=== PATIENT | male | born 1935 | race Caucasian/White ===

== ENCOUNTER → 2016-07-21 | Outpatient (CLI) | payer MEDICARE, OTHER ==
--- NOTE | 2016-07-21 11:56 | XR ---
EXAM TYPE: LUMBAR SPINE X RAY SERIES COMPARISON: 04/16/2016 HISTORY: Follow-up surgery FINDINGS: The patient is status post posterior spinal fusion and L3-S1, paraspinal bone has fused. Posterior sp inal fusion change also present at the thoracic lumbar levels, laminectomy change present at L2. Bone mineralization is reduced. Lumbar vertebral bodies show stable height and alignment. There is multil evel spondylosis, loss of disc height at the intervertebral levels. Dense atherosclerotic vascular ca lcifications are present IMPRESSION: 1. Stable postoperative alignment..
--- NOTE | 2016-07-21 12:01 | XR ---
EXAMINATION TYPE: XR thoracic spine 2V DATE OF EXAM: 07/21/2016 11:47 AM COMPARISON: 04/16/2016 HISTORY: Follow-up postop FINDINGS: Fusion changes are noted at the cervical thoracic junction. Posterior fusion changes also are stable at the posterior thoracic lumbar spine. Bone mineralization is reduced. Thoracic vertebral bodies cindy w a stable alignment, vertebral body height, appearance. Multilevel spondylosis is present. Surgical change overlying the cervical spine. IMPRESSION: 1. Stable postoperative change
== END | disposition home or self-care (01) ==
LOC: RADXRMAIN 11:15
PROVIDERS: ATTEND Neurological Surgery
DX: M51.04 Intervertebral disc disorders with myelopathy, thoracic region (principal); Z98.890 Other specified postprocedural states
CPT/HCPCS: 72070; 72100

== ENCOUNTER → 2017-01-10 | Outpatient (CLI) | payer MEDICARE, OTHER ==
--- NOTE | 2017-01-10 11:04 | XR ---
EXAMINATION TYPE: XR thoracic spine 2V DATE OF EXAM: 01/10/2017 COMPARISON: 07/21/2016 HISTORY: Chronic back Postsurgical changes are noted at the cervical thoracic junction. Postsurgical changes also are stabl e at the thoracolumbar junction. Bone mineralization is reduced. Thoracic vertebral bodies show a stable . Multilevel spondylosis is p resent. Hypertrophic change and multilevel degenerative disc disease noted. Vascular calcifications n oted. IMPRESSION: 1. Stable postoperative change
== END | disposition home or self-care (01) ==
LOC: RADXRMAIN 10:37
PROVIDERS: ATTEND Neurological Surgery
DX: M51.34 Other intervertebral disc degeneration, thoracic region (principal); Z98.890 Other specified postprocedural states
CPT/HCPCS: 72070

== ENCOUNTER → 2017-01-27 | Outpatient (CLI) | payer MEDICARE, OTHER ==
--- NOTE | 2017-01-27 16:32 | CT ---
EXAMINATION TYPE: CT thor lumbar spine wo con DATE OF EXAM: 01/27/2017 COMPARISON: NONE HISTORY: Lower back pain. Hx of back sx. CT DLP: 1151.0 mGycm Automated exposure control for dose reduction was used. Axial images were obtained at 3 mm thick sections through the thoracic and lumbar spine. Reconstructe d images in the coronal and sagittal plane are reviewed on the computer. FINDINGS: Vascular calcification is within the aorta. Multiple fixation pedicle screws and rods are present thr oughout the spine. Laminectomies performed. Note is made of anterior cervical fusion. CT thoracic spine: T11 laminectomy is present. T12 laminectomy is present. No spinal canal stenosis is evident. Mild deg enerative disc changes present diffusely. CT lumbar spine: Degenerative disc changes with vacuum phenomenon are present L1-L2 Laminectomies at L2, L3, L4, and L 5 are present. Beam hardening artifact causes some limitation on the evaluation of the lumbar spine. No spinal canal stenosis is present. Facet hypertrophy is contributing to foraminal narrowing at L5-S 1. Lateral recesses L5-S1 are narrowed. L5-S1 endplate changes in disc bulge may be present. Correlat e with the level of the patient's symptoms. IMPRESSION: 1. POSTSURGICAL CHANGES INCLUDING EXTENSIVE PEDICLE SCREWS AND FIXATION RODS THROUGH THE THORACIC AND LUMBAR SPINE. LAMINECTOMIES HAVE BEEN PERFORMED. 2. NO SPINAL CANAL STENOSIS IS EVIDENT. SOME LATERAL RECESS NARROWING IS PRESENT L5-S1. 3. ENDPLATE SPURRING AND DISC BULGE AT L5-S1 MAY BE PRESENT WITHOUT STENOSIS. CORRELATE WITH THE RADHA ENT'S SYMPTOMS.
== END | disposition home or self-care (01) ==
LOC: RADCTMAIN 15:38
PROVIDERS: ATTEND Neurological Surgery
DX: M51.27 Other intervertebral disc displacement, lumbosacral region (principal); M43.25 Fusion of spine, thoracolumbar region
CPT/HCPCS: 72128; 72131

== ENCOUNTER 2017-08-01 13:28 | Observation (INO) | payer MEDICARE, OTHER ==
[2017-08-01 14:06] VITALS: RESP 18
[2017-08-01] MEDS ORDERED: ASPIRIN 81 MG PO STA (14:14)
--- NOTE | 2017-08-01 14:17 | ED ---
General Adult HPI - General Chief complaint: Chest Pain Stated complaint: Chest Pain Time Seen by Provider: 08/01/17 14:06 Source: patient, family, RN notes reviewed Mode of arrival: wheelchair Limitations: no limitations - History of Present Illness Initial comments: Patient is a pleasant 82-year-old male presenting to the emergency department with chest discomfort. Symptoms have been occurring for the past week. Symptoms are intermittent. Patient has an ache in his chest that radiates towards the right and sometimes the back. Patient does have exertional dyspnea. Patient has been somewhat fatigued. No nausea or vomiting or diaphoresis. did see his primary care physician prior to arrival and was advised come to the hospital. Patient was told he had a low heart rate. Patient has no discomfort at this time. - Related Data Home Medications Medication Instructions Recorded Confirmed Isosorbide Mononitrate [Ismo] 20 mg PO BID 03/25/14 08/01/17 Lisinopril [Prinivil] 5 mg PO DAILY 03/25/14 08/01/17 Propranolol [Inderal] 10 mg PO DAILY 03/25/14 08/01/17 Tamsulosin HCl [Flomax] 0.4 mg PO DAILY 03/25/14 08/01/17 Aspirin 81 mg PO DAILY 01/07/15 08/01/17 Allergies Allergy/AdvReac Type Severity Reaction Status Date / Time No Known Allergies Allergy Verified 08/01/17 13:58 Review of Systems ROS Statement: Those systems with pertinent positive or pertinent negative responses have been documented in the HPI. ROS Other: All systems not noted in ROS Statement are negative. Constitutional: Denies: fever Eyes: Denies: eye pain ENT: Denies: ear pain Respiratory: Reports: dyspnea (With exertion). Denies: cough Cardiovascular: Reports: chest pain. Denies: palpitations Endocrine: Reports: fatigue Gastrointestinal: Denies: abdominal pain Genitourinary: Denies: dysuria Musculoskeletal: Denies: back pain Skin: Denies: rash Neurological: Denies: weakness Past Medical History Past Medical History: Coronary Artery Disease (CAD), Hyperlipidemia, Hypertension, Myocardial Infarction (HI), Prostate Disorder Additional Past Medical History / Comment(s): walking is more difficult now- has rt side back pain Last Myocardial Infarction Date:: 1991 History of Any Multi-Drug Resistant Organisms: None Reported Past Surgical History: Back Surgery, Heart Catheterization With Stent Additional Past Surgical History / Comment(s): Neck surgery, 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 States he went home and slept for about 4 hrs. that day. Date of Last Stent Placement:: 2012 Past Psychological History: No Psychological Hx Reported Smoking Status: Former smoker Past Alcohol Use History: None Reported Past Drug Use History: None Reported - Past Family History Mother Family Medical History: No Reported History General Exam Limitations: no limitations General appearance: alert, in no apparent distress Head exam: Present: atraumatic Eye exam: Present: normal appearance, PERRL ENT exam: Present: normal oropharynx Neck exam: Present: normal inspection Respiratory exam: Present: normal lung sounds bilaterally Cardiovascular Exam: Present: bradycardia Expanded Peripheral pulses: 2+: Radial (R), Radial (L), Posterior Tibialis (R), Posterior Tibialis (L) GI/Abdominal exam: Present: soft. Absent: tenderness Extremities exam: Present: normal inspection Neurological exam: Present: alert Psychiatric exam: Present: normal affect, normal mood Skin exam: Present: normal color Course Vital Signs 08/01/17 08/01/17 13:34 14:02 Temperature 98.5 F Pulse Rate 49 L 44 L Respiratory 16 18 Rate Blood Pressure 178/80 O2 Sat by Pulse 98 100 Oximetry EKG Findings - EKG Comments: EKG Findings:: Sinus bradycardia 44. For screening AV block with OR of 210. QRS 96. QT 470. QTc 41. Normal axis. Inferior Q waves. Anterior Q waves. No acute ST change. Medical Decision Making - Medical Decision Making Patient reexamined and resting comfortably in bed. Heart rate 42. Blood pressure stable. Case discussed in detail with Dr. Gil, who will admit for Dr. Michel. Beta shayy will be held. Cardiology placed on consult. Patient updated. - Lab Data Result diagrams: 08/01/17 14:00 08/01/17 14:00 Lab Results 08/01/17 08/01/17 08/01/17 Range/Units 14:00 14:00 14:00 WBC 7.8 (3.8-10.6) k/uL RBC 4.66 (4.30-5.90) m/uL Hgb 14.5 (13.0-17.5) gm/dL Hct 44.0 (39.0-53.0) % MCV 94.4 (80.0-100.0) fL MCH 31.0 (25.0-35.0) pg MCHC 32.8 (31.0-37.0) g/dL RDW 14.1 (11.5-15.5) % Plt Count 211 (150-450) k/uL Neutrophils % 59 % Lymphocytes % 30 % Monocytes % 5 % Eosinophils % 3 % Basophils % 1 % Neutrophils # 4.6 (1.3-7.7) k/uL Lymphocytes # 2.3 (1.0-4.8) k/uL Monocytes # 0.4 (0-1.0) k/uL Eosinophils # 0.3 (0-0.7) k/uL Basophils # 0.1 (0-0.2) k/uL PT (9.0-12.0) sec INR (<1.2) APTT (22.0-30.0) sec Sodium 140 (137-145) mmol/L Potassium 4.4 (3.5-5.1) mmol/L Chloride 108 H (98-107) mmol/L Carbon Dioxide 25 (22-30) mmol/L Anion Gap 7 mmol/L BUN 19 (9-20) mg/dL Creatinine 0.80 (0.66-1.25) mg/dL Est GFR (MDRD) Af Amer >60 (>60 ml/min/1.73 sqM) Est GFR (MDRD) Non-Af >60 (>60 ml/min/1.73 sqM) Glucose 105 H (74-99) mg/dL Calcium 9.5 (8.4-10.2) mg/dL Magnesium 1.9 (1.6-2.3) mg/dL Total Bilirubin 1.2 (0.2-1.3) mg/dL AST 25 (17-59) U/L ALT 42 (21-72) U/L Alkaline Phosphatase 81 (38-126) U/L Total Creatine Kinase 102 (55-170) U/L CK-MB (CK-2) 2.7 H* (0.0-2.4) ng/mL CK-MB (CK-2) Rel Index 2.6 Troponin I 0.012 (0.000-0.034) ng/mL Total Protein 5.7 L (6.3-8.2) g/dL Albumin 3.6 (3.5-5.0) g/dL TSH 2.320 (0.465-4.680) mIU/L Free T4 1.69 (0.78-2.19) ng/dL Free T3 pg/mL 3.5 (2.8-5.3) pg/ml 08/01/17 Range/Units 14:00 WBC (3.8-10.6) k/uL RBC (4.30-5.90) m/uL Hgb (13.0-17.5) gm/dL Hct (39.0-53.0) % MCV (80.0-100.0) fL MCH (25.0-35.0) pg MCHC (31.0-37.0) g/dL RDW (11.5-15.5) % Plt Count (150-450) k/uL Neutrophils % % Lymphocytes % % Monocytes % % Eosinophils % % Basophils % % Neutrophils # (1.3-7.7) k/uL Lymphocytes # (1.0-4.8) k/uL Monocytes # (0-1.0) k/uL Eosinophils # (0-0.7) k/uL Basophils # (0-0.2) k/uL PT 10.6 (9.0-12.0) sec INR 1.1 (<1.2) APTT 22.8 (22.0-30.0) sec Sodium (137-145) mmol/L Potassium (3.5-5.1) mmol/L Chloride (98-107) mmol/L Carbon Dioxide (22-30) mmol/L Anion Gap mmol/L BUN (9-20) mg/dL Creatinine (0.66-1.25) mg/dL Est GFR (MDRD) Af Amer (>60 ml/min/1.73 sqM) Est GFR (MDRD) Non-Af (>60 ml/min/1.73 sqM) Glucose (74-99) mg/dL Calcium (8.4-10.2) mg/dL Magnesium (1.6-2.3) mg/dL Total Bilirubin (0.2-1.3) mg/dL AST (17-59) U/L ALT (21-72) U/L Alkaline Phosphatase (38-126) U/L Total Creatine Kinase (55-170) U/L CK-MB (CK-2) (0.0-2.4) ng/mL CK-MB (CK-2) Rel Index Troponin I (0.000-0.034) ng/mL Total Protein (6.3-8.2) g/dL Albumin (3.5-5.0) g/dL TSH (0.465-4.680) mIU/L Free T4 (0.78-2.19) ng/dL Free T3 pg/mL (2.8-5.3) pg/ml - Radiology Data Radiology results: image reviewed (Chest x-ray shows no acute process.) Disposition Clinical Impression: Chest pain, Bradycardia, Exertional dyspnea Disposition: ADMITTED IP TO THIS [facility] Referrals: Nayeli Michel MD [Primary Care Provider] - 1-2 days Decision Time: 15:55
[2017-08-01 14:26] LABS: Basophils # (A) 0.1 k/uL (0-0.2); Basophils % (A) 1 %; Eosinophils # (A) 0.3 k/uL (0-0.7); Eosinophils % (A) 3 %; HGB 14.5 gm/dL (13.0-17.5); Lymphocytes # (A) 2.3 k/uL (1.0-4.8); Lymphocytes % (A) 30 %; MCHC 32.8 g/dL (31.0-37.0); MCV 94.4 fL (80.0-100.0); Mean Platelet Volume 7.2; Monocytes # (A) 0.4 k/uL (0-1.0); Monocytes % (A) 5 %; Neutrophils # (A) 4.6 k/uL (1.3-7.7); Neutrophils % (A) 59 %; Platelet Count 211 k/uL (150-450); RBC 4.66 m/uL (4.30-5.90); RDW 14.1 % (11.5-15.5); WBC 7.8 k/uL (3.8-10.6)
[2017-08-01 14:33] LABS: INR 1.1 (<1.2); Partial Thromboplastin Time 22.8 sec (22.0-30.0); Prothrombin Time 10.6 sec (9.0-12.0)
[2017-08-01 14:34] LABS: ALT 42 U/L (21-72); AST 25 U/L (17-59); Albumin 3.6 g/dL (3.5-5.0); Alkaline Phosphatase 81 U/L (38-126); Anion Gap 7 mmol/L; Blood Urea Nitrogen 19 mg/dL (9-20); Calcium 9.5 mg/dL (8.4-10.2); Carbon Dioxide 25 mmol/L (22-30); Chloride 108 mmol/L (98-107); Glucose 105 mg/dL (74-99); Magnesium 1.9 mg/dL (1.6-2.3); Potassium 4.4 mmol/L (3.5-5.1); Sodium 140 mmol/L (137-145); Total Bilirubin 1.2 mg/dL (0.2-1.3); Total Protein 5.7 g/dL (6.3-8.2)
--- NOTE | 2017-08-01 14:41 | XR ---
EXAMINATION TYPE: XR chest 2V DATE OF EXAM: 08/01/2017 COMPARISON: 03/25/2014 HISTORY: Shortness of breath TECHNIQUE: Frontal and lateral views of the chest are obtained. FINDINGS: Scattered senescent parenchymal changes noted. Hyperinflation compatible with COPD. No evidence for infiltrate. No evidence for atelectasis. Heart size is stable. Mediastinal structures are stable and grossly unremarkable. No evidence for hilar prominence. Degenerative changes dorsal spine. IMPRESSION: 1. No evidence for acute pulmonary disease.
[2017-08-01 14:51] LABS: T4, Free (Free Thyroxine) 1.69 ng/dL (0.78-2.19)
[2017-08-01 15:05] LABS: Troponin I 0.012 ng/mL (0.000-0.034)
[2017-08-01 15:06] LABS: Creatine Kinase MB 2.7 ng/mL (0.0-2.4)
[2017-08-01] MEDS ORDERED: NITROGLYCERIN SL TABS 0.4 MG TAB SUBLINGUAL PRN (15:58)
[2017-08-01] MEDS ORDERED: HEPARIN SODIUM,PORCINE 5,000 UNIT/ML 1 ML VIAL IV ONE (16:47)
[2017-08-01] MEDS ORDERED: HEPARIN SOD,PORK IN 0.45% NACL 25,000 UNIT in 0.45% NACL 1 500ML.BAG IV SCH (17:00)
--- NOTE | 2017-08-01 18:01 | P.HPIM ---
History of Present Illness H&P Date: 08/01/17 Chief Complaint: chestpain His is 82 years old male patient of Dr. Myers and Dr. Michel with past medical history of coronary artery disease status post stent in 1996, history of hypertension, BPH, multiple neck and back surgeries for degenerative arthritis who presented with substernal chest pain radiating to his back for the past 1 week. Patient was seen by the PCP today in the clinic for concern of chest pain. Vitals obtained suggested a heart rate of 40 in the clinic. Evaluation in the ED patient complains of intermittent substernal chest pain worsening on exertion, radiating to the back associated with shortness of breath postop patient denies any cough fever or chills. Labs evaluated in the ED were positive for increased CK with negative troponin. EKG done in the ER was positive for marked sinus bradycardia with first-degree AV block, Q waves were seen in leads 2-lead 3 and aVF anterior leads suggestive of Q waves myocardial infarction. Vitals was suggestive of bradycardia, blood pressure 178 /80 afebrile. Patient states there is no improvement in his chest pain with aspirin but it resolved by itself. He saw Dr. Myers 2 months ago for regular follow-up but denies any recent abnormality. He had a stress test multiple years ago and had a recent echocardiogram with no abnormality. Review of Systems Constitutional: Denies chills, Denies fever, Denies lethargy, Denies malaise, Denies poor appetite, Denies weakness, Denies weight loss Eyes: denies decreased vision, denies diplopia, denies discharge, denies pain Ears: deny: decreased hearing Ears, nose, mouth and throat: Denies dental pain, Denies headache, Denies nasal discharge, Denies nose pain Cardiovascular: chest pain, decreased exercise tolerance, Denies edema, Denies high blood pressure, Denies irregular heart beat, Denies palpitations, Denies paroxysmal nocturnal dyspnea, Denies rapid heart beat, shortness of breath Respiratory: Denies congestion, Denies cough, Denies cough with sputum, Denies home oxygen, Denies wheezing Gastrointestinal: Denies abdominal pain, Denies change in bowel habits, Denies coffee ground emesis, Denies early satiety, Denies excessive gas, Denies heartburn, Denies hematemesis, Denies hematochezia, Denies loss of appetite, Denies nausea, Denies vomiting Genitourinary: Denies dysuria, Denies flank pain, Denies kidney stones, Denies menorrhagia, Denies urgency, Denies urinary frequency Musculoskeletal: Denies gait dysfunction, Denies limitation of motion, Denies morning stiffness, Denies muscle cramps Integumentary: Denies rash, Denies wounds, Denies brittle nails, Denies change in hair/nails, Denies darkening of skin Neurological: Endorses balance difficulties uses cane, Denies change in speech, Denies double vision, Denies gait dysfunction, Denies loss of vision, Denies motor disturbance, Denies numbness, Denies paralysis, Denies paresthesias, Denies seizures Psychiatric: Denies anxiety, Denies depression Endocrine: Denies excessive sweating, Denies excessive thirst, Denies high blood sugars, Denies palpitations Hematologic/Lymphatic: Denies easy bruising, Denies lymphadenopathy Past Medical History Past Medical History: Coronary Artery Disease (CAD), Hypertension, Myocardial Infarction (ME), Prostate Disorder Additional Past Medical History / Comment(s): walking is more difficult now- has rt side back pain Last Myocardial Infarction Date:: 1991 History of Any Multi-Drug Resistant Organisms: None Reported Past Surgical History: Back Surgery, Heart Catheterization With Stent Additional Past Surgical History / Comment(s): Neck surgery, 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 States he went home and slept for about 4 hrs. that day. Date of Last Stent Placement:: 2012 Past Psychological History: No Psychological Hx Reported Smoking Status: Former smoker Past Alcohol Use History: None Reported Past Drug Use History: None Reported - Past Family History Mother Family Medical History: No Reported History Medications and Allergies Home Medications Medication Instructions Recorded Confirmed Type Isosorbide Mononitrate [Ismo] 20 mg PO BID 03/25/14 08/01/17 History Lisinopril [Prinivil] 5 mg PO DAILY 03/25/14 08/01/17 History Propranolol [Inderal] 10 mg PO DAILY 03/25/14 08/01/17 History Tamsulosin HCl [Flomax] 0.4 mg PO DAILY 03/25/14 08/01/17 History Aspirin 81 mg PO DAILY 01/07/15 08/01/17 History Allergies Allergy/AdvReac Type Severity Reaction Status Date / Time No Known Allergies Allergy Verified 08/01/17 13:58 Physical Exam Vitals: Vital Signs Temp Pulse Resp BP Pulse Ox 08/01/17 16:00 44 L 18 183/82 08/01/17 14:02 44 L 18 100 08/01/17 13:34 98.5 F 49 L 16 178/80 98 Intake and Output 08/01/17 08/01/17 08/01/17 06:59 14:59 22:59 Other: Weight 72.575 kg Patient Weight 08/02/17 06:59 Weight 72.575 kg - Constitutional General appearance: cooperative, no acute distress, thin-appearing - EENT Eyes: anicteric sclerae, PERRLA, normal appearance ENT: hearing grossly normal - Neck Neck: no lymphadenopathy, normal ROM, no other, no rigidity, no stridor, no thyromegaly, incision cortez of the back of the neck healed - Respiratory Respiratory: bilateral: CTA, negative: diminished, dullness, rales, rhonchi - Cardiovascular Rhythm: regular Heart sounds: normal: S1, S2 Abnormal Heart Sounds: no systolic murmur, no diastolic murmur, no rub, no S3 Gallop, no S4 Gallop, no click, no other - Gastrointestinal General gastrointestinal: normal bowel sounds, soft - Integumentary Integumentary: no rash - Neurologic Neurologic: CNII-XII intact - Musculoskeletal Musculoskeletal: gait normal, strength equal bilaterally - Psychiatric Psychiatric: A&O x's 3, appropriate affect Results CBC & Chem 7: 08/01/17 14:00 08/01/17 14:00 Labs: Abnormal Lab Results - Last 24 Hours (Table) 08/01/17 08/01/17 Range/Units 14:00 14:00 Chloride 108 H (98-107) mmol/L Glucose 105 H (74-99) mg/dL CK-MB (CK-2) 2.7 H* (0.0-2.4) ng/mL Total Protein 5.7 L (6.3-8.2) g/dL Thrombosis Risk Factor Assmnt - DVT/VTE Prophylaxis DVT/VTE Prophylaxis: Pharmacologic Prophylaxis ordered Assessment and Plan Plan: #1 substernal chest pain with shortness of breath likely associated with acute coronary syndrome was stopped EKG suggestive of Q waves in multiple leads concerning for ME concerning for inferior ME in the presence of bradycardia. Continue heparin drip, aspirin. Hold beta shayy for concern of bradycardia. Cardiology recommendation pending. Repeat EKG in the morning. Echo ordered. Lipid panel ordered #2 bradycardia likely secondary to inferior wall ME. There is a possibility patient may require temporary pacemaker if bradycardia does not improve. Atropine 0.5 mg can be given if patient is symptomatic #3 hypertension continue lisinopril, Imdur. Hold propranolol. Hydralazine can be given as a when necessary if blood pressure continues to stay more than 160 though if patient has persistent angina would avoid using hydralazine. I would rather avoid beta blockers, calcium channel blockers, clonidine for the concern of bradycardia. #4 BPH continue Flomax #5 DVT prophylaxis continue heparin drip #6 GI prophylaxis with Pepcid 20 mg once daily #7 CODE STATUS full code Disposition patient may need 1-2 inpatient nights for concern of bradycardia and need for pacemaker.
[2017-08-01] MEDS ORDERED: ACETAMINOPHEN TAB 325 MG TAB PO PRN (18:02)
[2017-08-01] MEDS ORDERED: hydrALAZINE HCL 20 MG/ML 1 ML VIAL IVP PRN (18:02)
[2017-08-01] MEDS: LISINOPRIL 5 MG TAB PO SCH (18:46)
[2017-08-01] MEDS: ISOSORBIDE MONONITRATE 20 MG TAB PO SCH (21:09)
[2017-08-01 21:17] LABS: Creatine Kinase MB 2.3 ng/mL (0.0-2.4); Troponin I 0.013 ng/mL (0.000-0.034)
[2017-08-02 01:21] LABS: Basophils # (A) 0.1 k/uL (0-0.2); Basophils % (A) 1 %; Eosinophils # (A) 0.2 k/uL (0-0.7); Eosinophils % (A) 3 %; HCT 41.3 % (39.0-53.0); HGB 13.8 gm/dL (13.0-17.5); Lymphocytes % (A) 38 %; MCH 31.2 pg (25.0-35.0); MCHC 33.4 g/dL (31.0-37.0); MCV 93.3 fL (80.0-100.0); Monocytes # (A) 0.4 k/uL (0-1.0); Monocytes % (A) 5 %; Neutrophils # (A) 4.1 k/uL (1.3-7.7); Neutrophils % (A) 52 %; Platelet Count 215 k/uL (150-450); RBC 4.43 m/uL (4.30-5.90); RDW 12.9 % (11.5-15.5); WBC 7.9 k/uL (3.8-10.6)
[2017-08-02 01:43] LABS: Creatine Kinase MB 2.1 ng/mL (0.0-2.4); Troponin I 0.015 ng/mL (0.000-0.034)
[2017-08-02 02:02] LABS: Cholesterol 109 mg/dL (<200); Glucose 92 mg/dL (74-99); Total Protein 5.1 g/dL (6.3-8.2); Triglycerides 40 mg/dL (<150)
[2017-08-02 02:32] LABS: ALT 42 U/L (21-72); AST 26 U/L (17-59); Alkaline Phosphatase 75 U/L (38-126); Anion Gap 9 mmol/L; Blood Urea Nitrogen 19 mg/dL (9-20); Carbon Dioxide 23 mmol/L (22-30); Chloride 107 mmol/L (98-107); HDL Cholesterol 47 mg/dL (40-60); LDL Cholesterol,Calculated 54 mg/dL (0-99); Sodium 139 mmol/L (137-145); Total Bilirubin 0.9 mg/dL (0.2-1.3)
[2017-08-02 08:01] VITALS: PULSE 54
[2017-08-02] MEDS: ISOSORBIDE MONONITRATE 20 MG TAB PO SCH (08:59)
[2017-08-02] MEDS: LISINOPRIL 5 MG TAB PO SCH (08:59)
[2017-08-02] MEDS ORDERED: LISINOPRIL 5 MG TAB PO SCH (09:00)
[2017-08-02] MEDS ORDERED: TAMSULOSIN 0.4 MG CAP.ER.24H PO SCH (09:00)
[2017-08-02] MEDS ORDERED: FAMOTIDINE 20 MG TAB PO SCH (09:00)
[2017-08-02] MEDS ORDERED: ATORVASTATIN 40 MG TAB PO SCH (09:00)
[2017-08-02] MEDS ORDERED: ASPIRIN 325 MG TAB PO SCH (09:00)
[2017-08-02] MEDS ORDERED: LISINOPRIL 10 MG TAB PO SCH (09:51)
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
[2017-08-02 11:38] VITALS: BP 140/64; TEMP 98
--- NOTE | 2017-08-02 13:38 | P.DS ---
Providers Date of admission: 08/01/17 15:58 Expected date of discharge: 08/02/17 Attending physician: Champ Gallardo MD Consults: 08/01/17 15:58 Consult Physician Urgent Consulting Provider: Mykel Lovett Consult Reason/Comments: bradycardia, cp Do you want consulting provider notified?: Yes Primary care physician: Nayeli Michel Hospital Course: This is an 82 year-old male patient of Dr. Myers and Dr. Michel with past medical history of coronary artery disease status post stent in 1996, history of hypertension, BPH, multiple neck and back surgeries for degenerative arthritis who presented with substernal chest pain radiating to his back for the past 1 week. Patient was seen by the PCP today in the clinic for concern of chest pain. Vitals obtained suggested a heart rate of 40 in the clinic. Evaluation in the ED patient complains of intermittent substernal chest pain worsening on exertion, radiating to the back associated with shortness of breath postop patient denies any cough fever or chills. Labs evaluated in the ED were positive for increased CK with negative troponin. EKG done in the ER was positive for marked sinus bradycardia with first-degree AV block, Q waves were seen in leads 2-lead 3 and aVF anterior leads suggestive of Q waves myocardial infarction. Vitals was suggestive of bradycardia, blood pressure 178 /80 afebrile. Patient states there is no improvement in his chest pain with aspirin but it resolved by itself. He saw Dr. Myers 2 months ago for regular follow-up but denies any recent abnormality. He had a stress test multiple years ago and had a recent echocardiogram with no abnormality. 08/02: Troponins have been negative on 3 draws. Patient has been evaluated by cardiology. Propranolol was discontinued and blood pressures running high for which they recommended lisinopril 10 mg daily. They have cleared the patient for discharge home and follow up with Dr. Myers in one to 2 weeks. Discussed the propranolol is used for his essential tremor and patient does not want to start any other medication at this time but will discuss with Dr. Michel in the office. Patient will be discharged home today in stable condition. Discharge Diagnoses: 1 substernal chest pain, acute coronary syndrome ruled out 2 bradycardia 3 hypertension 4 BPH 5 Essential tremor Discharge plan: Home Impression and plan of care have been directed as dictated by the signing physician. Ingrid Convery nurse practitioner acting as scribe for signing physician. Patient Condition at Discharge: Good Plan - Discharge Summary Discharge Rx Participant: No New Discharge Prescriptions: New Atorvastatin [Lipitor] 40 mg PO HS #30 tab Lisinopril [Zestril] 10 mg PO DAILY #30 tab Continue Tamsulosin HCl [Flomax] 0.4 mg PO DAILY Isosorbide Mononitrate [Ismo] 20 mg PO BID Aspirin 81 mg PO DAILY Discontinued Propranolol [Inderal] 10 mg PO DAILY Lisinopril [Prinivil] 5 mg PO DAILY Discharge Medication List Isosorbide Mononitrate [Ismo] 20 mg PO BID 03/25/14 [History] Tamsulosin HCl [Flomax] 0.4 mg PO DAILY 03/25/14 [History] Aspirin 81 mg PO DAILY 01/07/15 [History] Atorvastatin [Lipitor] 40 mg PO HS #30 tab 08/02/17 [Rx] Lisinopril [Zestril] 10 mg PO DAILY #30 tab 08/02/17 [Rx] Follow up Appointment(s)/Referral(s): Hamilton Myers MD [STAFF PHYSICIAN] - 1 Week (Office will call with appointment. ) Nayeli Michel MD [Primary Care Provider] - 1 Week Patient Instructions/Handouts: Chest Pain (DC) Discharge Disposition: HOME SELF-CARE
[2017-08-03] MEDS ORDERED: ASPIRIN 81 MG PO SCH (09:00)
--- NOTE | 2017-08-09 09:13 | ECHOF ---
Referral Reason:ACS MEASUREMENTS -------- HEIGHT: 157.5 cm WEIGHT: 72.6 kg BP: 140/53 RVIDd: 2.3 cm (< 3.3) IVSd: 1.2 cm (0.6 - 1.1) LVIDd: 4.6 cm (3.9 - 5.3) LVPWd: 1.4 cm (0.6 - 1.1) IVSs: 1.7 cm LVIDs: 3.6 cm LVPWs: 1.3 cm LAESV Index (A-L): 22.31 ml/m Ao Diam: 3.4 cm (2.0 - 3.7) AV Cusp: 1.7 cm (1.5 - 2.6) LA Diam: 3.4 cm (2.7 - 3.8) MV EXCURSION: 15.944 mm (> 18.000) MV EF SLOPE: 43 mm/s (70 - 150) EPSS: 0.4 cm MV E Jose Luis: 0.57 m/s MV DecT: 298 ms MV A Jose Luis: 1.22 m/s MV E/A Ratio: 0.47 AV maxP.99 mmHg AV meanP.90 mmHg RAP: 5.00 mmHg RVSP: 11.80 mmHg FINDINGS -------- Sinus rhythm. This was a technically adequate study. The left ventricular size is normal. There is mild concentric left ventricular hypertrophy. Overa ll left ventricular systolic function is normal with, an EF between 55 - 60 %. The right ventricle is normal in size. Normal LA size by volume 22+/-6 ml/m2. The right atrial size is normal. There is mild aortic valve sclerosis. There is no evidence of aortic regurgitation. Peak/mean gra dient across the Aortic Valve is 11.99mmHg / 6.90mmHg. Mild mitral regurgitation is present. Mild tricuspid regurgitation present. There is no evidence of pulmonary hypertension. The right v entricular systolic pressure, as measured by Doppler, is 11.80mmHg. There is no pulmonic regurgitation present. The aortic root size is normal. There is no pericardial effusion. CONCLUSIONS -------- 1. The left ventricular size is normal. 2. There is mild concentric left ventricular hypertrophy. 3. Overall left ventricular systolic function is normal with, an EF between 55 - 60 %. 4. Normal LA size by volume 22+/-6 ml/m2. 5. There is mild aortic valve sclerosis. 6. Peak/mean gradient across the Aortic Valve is 11.99mmHg / 6.90mmHg. 7. Mild mitral regurgitation is present. 8. Mild tricuspid regurgitation present. 9. There is no evidence of pulmonary hypertension. 10. The right ventricular systolic pressure, as measured by Doppler, is 11.80mmHg. 11. There is no pulmonic regurgitation present. 12. The aortic root size is normal. 13. There is no pericardial effusion. BARREL REAMER: Marylou Flanagan RDCS
== END 2017-08-02 12:10 | disposition home or self-care (01) ==
LOC: EC 13:28 → 3OBS 15:58
PROVIDERS: ADMIT Internal Medicine; ATTEND Internal Medicine
DX: R07.89 Other chest pain (principal); R00.1 Bradycardia, unspecified; I44.0 Atrioventricular block, first degree; I10 Essential (primary) hypertension; N40.0 Benign prostatic hyperplasia without lower urinary tract symptoms; I25.10 Atherosclerotic heart disease of native coronary artery without angina pectoris; G25.0 Essential tremor; E78.5 Hyperlipidemia, unspecified; M19.90 Unspecified osteoarthritis, unspecified site; M54.9 Dorsalgia, unspecified; I25.2 Old myocardial infarction; Z95.5 Presence of coronary angioplasty implant and graft; Z87.891 Personal history of nicotine dependence; Z87.01 Personal history of pneumonia (recurrent); Z79.82 Long term (current) use of aspirin; Z79.899 Other long term (current) drug therapy; Z82.49 Family history of ischemic heart disease and other diseases of the circulatory system; Z82.3 Family history of stroke
CPT/HCPCS: 99285 ×2; 96365 ×2; 96376 ×2; 96366 ×2; 36415; 93005; 93306; 84439; 84481; 80061; 80053 ×2; 82550 ×2; 82553 ×2; 83735; 84443; 84484 ×2; 85025 ×2; 85610; 85730 ×2; 71046; G0378 ×2; J1644 ×2

== ENCOUNTER 2018-08-12 10:13 | Observation (INO) | payer MEDICARE, OTHER ==
--- NOTE | 2018-08-12 10:29 | ED ---
General Adult HPI - General Chief complaint: Chest Pain Stated complaint: chest pain Time Seen by Provider: 08/12/18 10:21 Source: patient Mode of arrival: ambulatory Limitations: no limitations - History of Present Illness Initial comments: Dictation was produced using Re[employer]ise dictation software. please excuse any grammatical, word or spelling errors. Chief Complaint: Patient is a 83-year-old male past medical history coronary artery disease, dyslipidemia, hypertension presents with chest pain. History of Present Illness: Patient reports that his symptoms started yesterday. He states that he feels a sharp stabbing pain to the anterior portion of his chest with radiation to back. He states it goes around his thoracic cage. He describes the pain as sharp. He states that the pain patient states he can feel some exacerbation with deep inspiration and with turning or does not reproduce symptoms. Patient denies any recent exertional activity. No numbness or paresthesias to the arms or legs. Patient states that his symptoms remind him of when he was diagnosed with coronary artery disease in the past. Patient has history of cardiac With coronary artery stenting. Patient has no other complaints at this time. The ROS documented in this emergency department record has been reviewed and confirmed by me. Those systems with pertinent positive or negative responses have been documented in the HPI. All other systems are other negative and/or noncontributory. PHYSICAL EXAM: General Impression: Alert and oriented x3, not in acute distress HEENT: Normocephalic atraumatic, extra-ocular movements intact, pupils equal and reactive to light bilaterally, mucous membranes moist. Cardiovascular: Heart regular rate and rhythm, S1&S2 audible, no murmurs, rubs or gallops Chest: Lungs clear to auscultation bilaterally, no rhonchi, no wheeze, no rales Abdomen: Bowel sounds present, abdomen soft, non-tender, non-distended, no organomegaly Musculoskeletal: Pulses present and equal in all extremities, no peripheral edema Motor: Power 5/5 bilaterally, no focal deficits noted Neurological: CN II-XII grossly intact, no focal motor or sensory deficits noted Skin: Intact with no visualized rashes Psych: Normal affect and mood ED course: 83 old male presents with atypical chest pain with typical features. Vital signs upon arrival shows blood pressure 191/70, rest of vital signs within acceptable limits.Laboratory evaluation obtained. CBC, coag panel, metabolic panel all within acceptable limits. Patient's d-dimer 0.96. D-dimer was ordered for pleuritic chest pain and possible PE. CT angios obtained showing no acute processes. Initial cardiac enzymes are unremarkable. Chest x- rays negative. Patient given aspirin. We will plan to have patient admitted for serial troponins and cardiology consultation. Patient understandable and agreeable to plan. EKG interpretation: Ventricular rate 50, sinus bradycardia,. Interval 190, QS 100, QTC 412. No UT prolongation, no QTC prolongation, no ST or T-wave changes noted. EKG compared to showing no changes. Overall, this EKG is unremarkable - Related Data Home Medications Medication Instructions Recorded Confirmed Isosorbide Mononitrate [Ismo] 20 mg PO BID 03/25/14 08/12/18 Tamsulosin HCl [Flomax] 0.4 mg PO DAILY 03/25/14 08/12/18 Aspirin 81 mg PO DAILY 01/07/15 08/12/18 Atorvastatin Calcium [Lipitor] 80 mg PO DAILY 08/12/18 08/12/18 Finasteride [Proscar] 5 mg PO DAILY 08/12/18 08/12/18 Previous Rx's Medication Instructions Recorded Lisinopril [Zestril] 10 mg PO DAILY #30 tab 08/02/17 Allergies Allergy/AdvReac Type Severity Reaction Status Date / Time No Known Allergies Allergy Verified 08/12/18 10:35 Review of Systems ROS Statement: Those systems with pertinent positive or pertinent negative responses have been documented in the HPI. ROS Other: All systems not noted in ROS Statement are negative. Past Medical History Past Medical History: Coronary Artery Disease (CAD), Hyperlipidemia, Hypertension, Myocardial Infarction ([place]), Osteoarthritis (OA), Pneumonia, Prostate Disorder Additional Past Medical History / Comment(s): has some balance issuse, uses cane when outside home, seasonal allergies, sinus problems, ddd Last Myocardial Infarction Date:: 1991 History of Any Multi-Drug Resistant Organisms: None Reported Past Surgical History: Back Surgery, Heart Catheterization, Heart Catheterization With Stent Additional Past Surgical History / Comment(s): colonoscopy/polypectomy, 2 Neck surgery, STATES 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 States he went home and slept for about 4 hrs. that day. Date of Last Stent Placement:: 2012 Past Psychological History: No Psychological Hx Reported Smoking Status: Former smoker Past Alcohol Use History: None Reported Past Drug Use History: None Reported - Past Family History Father Family Medical History: Myocardial Infarction ([place]) Additional Family Medical History / Comment(s): several mi's, bu from complications of pedestrain/mva-head injury. Mother Family Medical History: CVA/TIA General Exam Limitations: no limitations Course Vital Signs 08/12/18 10:16 Temperature 98 F Pulse Rate 53 L Respiratory 18 Rate Blood Pressure 191/78 O2 Sat by Pulse 99 Oximetry Medical Decision Making - Lab Data Result diagrams: 08/12/18 10:40 08/12/18 10:40 Lab Results 08/12/18 08/12/18 08/12/18 Range/Units 10:40 10:40 10:40 WBC 8.1 (3.8-10.6) k/uL RBC 4.54 (4.30-5.90) m/uL Hgb 13.9 (13.0-17.5) gm/dL Hct 42.5 (39.0-53.0) % MCV 93.7 (80.0-100.0) fL MCH 30.5 (25.0-35.0) pg MCHC 32.6 (31.0-37.0) g/dL RDW 13.3 (11.5-15.5) % Plt Count 216 (150-450) k/uL Neutrophils % 56 % Lymphocytes % 34 % Monocytes % 5 % Eosinophils % 3 % Basophils % 1 % Neutrophils # 4.6 (1.3-7.7) k/uL Lymphocytes # 2.7 (1.0-4.8) k/uL Monocytes # 0.4 (0-1.0) k/uL Eosinophils # 0.3 (0-0.7) k/uL Basophils # 0.1 (0-0.2) k/uL PT (9.0-12.0) sec INR (<1.2) APTT (22.0-30.0) sec D-Dimer (<0.60) mg/L FEU Sodium 139 (137-145) mmol/L Potassium 4.4 (3.5-5.1) mmol/L Chloride 108 H (98-107) mmol/L Carbon Dioxide 24 (22-30) mmol/L Anion Gap 7 mmol/L BUN 22 H (9-20) mg/dL Creatinine 0.85 (0.66-1.25) mg/dL Est GFR (CKD-EPI)AfAm >90 (>60 ml/min/1.73 sqM) Est GFR (CKD-EPI)NonAf 82 (>60 ml/min/1.73 sqM) Glucose 121 H (74-99) mg/dL Calcium 9.2 (8.4-10.2) mg/dL Magnesium 1.9 (1.6-2.3) mg/dL Total Bilirubin 1.1 (0.2-1.3) mg/dL AST 26 (17-59) U/L ALT 40 (21-72) U/L Alkaline Phosphatase 73 (38-126) U/L Total Creatine Kinase 208 H (55-170) U/L CK-MB (CK-2) 3.1 H (0.0-2.4) ng/mL CK-MB (CK-2) Rel Index 1.5 Troponin I <0.012 (0.000-0.034) ng/mL Total Protein 5.7 L (6.3-8.2) g/dL Albumin 3.5 (3.5-5.0) g/dL Lipase 52 (23-300) U/L 08/12/18 Range/Units 10:40 WBC (3.8-10.6) k/uL RBC (4.30-5.90) m/uL Hgb (13.0-17.5) gm/dL Hct (39.0-53.0) % MCV (80.0-100.0) fL MCH (25.0-35.0) pg MCHC (31.0-37.0) g/dL RDW (11.5-15.5) % Plt Count (150-450) k/uL Neutrophils % % Lymphocytes % % Monocytes % % Eosinophils % % Basophils % % Neutrophils # (1.3-7.7) k/uL Lymphocytes # (1.0-4.8) k/uL Monocytes # (0-1.0) k/uL Eosinophils # (0-0.7) k/uL Basophils # (0-0.2) k/uL PT 10.5 (9.0-12.0) sec INR 1.0 (<1.2) APTT 24.2 (22.0-30.0) sec D-Dimer 0.96 H (<0.60) mg/L FEU Sodium (137-145) mmol/L Potassium (3.5-5.1) mmol/L Chloride (98-107) mmol/L Carbon Dioxide (22-30) mmol/L Anion Gap mmol/L BUN (9-20) mg/dL Creatinine (0.66-1.25) mg/dL Est GFR (CKD-EPI)AfAm (>60 ml/min/1.73 sqM) Est GFR (CKD-EPI)NonAf (>60 ml/min/1.73 sqM) Glucose (74-99) mg/dL Calcium (8.4-10.2) mg/dL Magnesium (1.6-2.3) mg/dL Total Bilirubin (0.2-1.3) mg/dL AST (17-59) U/L ALT (21-72) U/L Alkaline Phosphatase (38-126) U/L Total Creatine Kinase (55-170) U/L CK-MB (CK-2) (0.0-2.4) ng/mL CK-MB (CK-2) Rel Index Troponin I (0.000-0.034) ng/mL Total Protein (6.3-8.2) g/dL Albumin (3.5-5.0) g/dL Lipase (23-300) U/L Disposition Clinical Impression: Chest pain Disposition: ADMITTED IP TO THIS [facility] Condition: Fair Referrals: Nayeli Michel MD [Primary Care Provider] - 1-2 days Decision Time: 13:58
[2018-08-12 10:58] LABS: Basophils # (A) 0.1 k/uL (0-0.2); Basophils % (A) 1 %; Eosinophils # (A) 0.3 k/uL (0-0.7); Eosinophils % (A) 3 %; HCT 42.5 % (39.0-53.0); HGB 13.9 gm/dL (13.0-17.5); Lymphocytes # (A) 2.7 k/uL (1.0-4.8); Lymphocytes % (A) 34 %; MCH 30.5 pg (25.0-35.0); MCHC 32.6 g/dL (31.0-37.0); MCV 93.7 fL (80.0-100.0); Mean Platelet Volume 6.5; Monocytes # (A) 0.4 k/uL (0-1.0); Monocytes % (A) 5 %; Neutrophils # (A) 4.6 k/uL (1.3-7.7); Neutrophils % (A) 56 %; Platelet Count 216 k/uL (150-450); RBC 4.54 m/uL (4.30-5.90); RDW 13.3 % (11.5-15.5); WBC 8.1 k/uL (3.8-10.6)
[2018-08-12 11:08] LABS: ALT 40 U/L (21-72); AST 26 U/L (17-59); Albumin 3.5 g/dL (3.5-5.0); Alkaline Phosphatase 73 U/L (38-126); Anion Gap 7 mmol/L; Blood Urea Nitrogen 22 mg/dL (9-20); Calcium 9.2 mg/dL (8.4-10.2); Carbon Dioxide 24 mmol/L (22-30); Chloride 108 mmol/L (98-107); Glucose 121 mg/dL (74-99); Lipase 52 U/L (23-300); Magnesium 1.9 mg/dL (1.6-2.3); Potassium 4.4 mmol/L (3.5-5.1); Sodium 139 mmol/L (137-145); Total Bilirubin 1.1 mg/dL (0.2-1.3); Total Protein 5.7 g/dL (6.3-8.2)
--- NOTE | 2018-08-12 11:09 | XR ---
EXAMINATION TYPE: XR chest 2V DATE OF EXAM: 08/12/2018 COMPARISON: Chest x-ray August 01, 2017 HISTORY: Chest pain for one day. TECHNIQUE: Frontal and lateral views of the chest are obtained. FINDINGS: Overlying EKG leads are redemonstrated. There is chronic parenchymal change without suspic ious focal air space opacity, pleural effusion, or pneumothorax seen. The cardiac silhouette size is upper limits of normal with atherosclerotic thoracic aorta. There is partial visualization of surgic al change in the thoracolumbar spine and in the cervical spine with anterior fusion plate cervical th oracic junction redemonstrated. IMPRESSION: Chronic changes without acute cardiopulmonary process.
[2018-08-12 11:15] LABS: Partial Thromboplastin Time 24.2 sec (22.0-30.0); Prothrombin Time 10.5 sec (9.0-12.0)
[2018-08-12 11:21] LABS: D-Dimer 0.96 mg/L FEU (<0.60)
[2018-08-12 11:44] LABS: Creatine Kinase 208 U/L (55-170)
[2018-08-12 11:55] LABS: Creatine Kinase MB 3.1 ng/mL (0.0-2.4)
[2018-08-12 11:57] LABS: Troponin I <0.012 ng/mL (0.000-0.034)
--- NOTE | 2018-08-12 12:56 | CT ---
EXAMINATION TYPE: CT angio chest DATE OF EXAM: 08/12/2018 COMPARISON: CT 2011 HISTORY: Chest pain CT DLP: 262.6 mGycm. Automated Exposure Control for Dose Reduction was Utilized. CONTRAST: CTA scan of the thorax is performed without and with IV Contrast, patient injected with 100 mL of Iso gabe 370, pulmonary embolism protocol. MIP Images are created on CT scanner and reviewed. FINDINGS: LUNGS: There is background fairly moderate emphysematous change noted most prominent in lung apices. There is patchy bibasilar linear scarring and/or atelectasis in both lower lobes. No pleural effusion or pneumothorax is evident bilaterally. No suspicious parenchymal nodules or masses are present. MEDIASTINUM: There is satisfactory enhancement of the pulmonary artery and its branches, there is no CT evidence for pulmonary embolism. There are no greater than 1 cm hilar or mediastinal lymph nodes. No cardiomegaly is seen. Tiny pericardial effusion is slightly larger from prior CT. There is mode rate mixed plaque in the thoracic aorta. OTHER: Interpedicular rods and screws begin in the mid thoracic spine extending into the lumbar spine . Bilateral gynecomastia is more prominent on current study versus prior. IMPRESSION: 1. No CT evidence for acute pulmonary embolism. 2. Mild to moderate underlying emphysematous change without suspicious acute pulmonary process.
[2018-08-12] MEDS ORDERED: ASPIRIN 81 MG PO STA (13:58)
[2018-08-12] MEDS ORDERED: NITROGLYCERIN SL TABS 0.4 MG TAB SUBLINGUAL PRN (13:58)
[2018-08-12 15:22] VITALS: RESP 18; BMI 20.7
[2018-08-12 17:40] LABS: Creatine Kinase MB 2.4 ng/mL (0.0-2.4); Troponin I 0.013 ng/mL (0.000-0.034)
[2018-08-12] MEDS ORDERED: METHYL SALICYLATE/MENTHOL CREAM 5 OZ TOPICAL PRN (18:18)
[2018-08-12] MEDS ORDERED: NAPROXEN 250 MG TAB PO PRN (18:18)
[2018-08-12] MEDS: ISOSORBIDE MONONITRATE 20 MG TAB PO SCH (21:30)
[2018-08-13 00:46] LABS: Creatine Kinase MB 1.9 ng/mL (0.0-2.4); Troponin I 0.014 ng/mL (0.000-0.034)
[2018-08-13 03:04] LABS: Cholesterol 120 mg/dL (<200); HDL Cholesterol 50 mg/dL (40-60); LDL Cholesterol,Calculated 58 mg/dL (0-99); Triglycerides 62 mg/dL (<150)
[2018-08-13] MEDS: ISOSORBIDE MONONITRATE 20 MG TAB PO SCH (08:41)
[2018-08-13] MEDS ORDERED: ASPIRIN 81 MG PO SCH (09:00)
[2018-08-13] MEDS ORDERED: ASPIRIN 325 MG TAB PO SCH (09:00)
[2018-08-13] MEDS ORDERED: TAMSULOSIN 0.4 MG CAP.ER.24H PO SCH (09:00)
[2018-08-13] MEDS ORDERED: FINASTERIDE 5 MG TAB PO SCH (09:00)
[2018-08-13] MEDS ORDERED: LISINOPRIL 10 MG TAB PO SCH (09:00)
[2018-08-13] MEDS ORDERED: ATORVASTATIN 80 MG TAB PO SCH (09:00)
--- NOTE | 2018-08-13 10:10 | P.CRDCN ---
History of Present Illness Consult date: 08/13/18 Requesting physician: Nayeli Michel Reason for Consult (text): chest pain Chief complaint: chest pain History of present illness: This is a pleasant 83-year-old gentleman who follows with Dr. Myers in the office. He has a known history of coronary artery disease, hyperlipidemia, hypertension, AL in 1991 at which time he had angioplasty with subsequent stenting several years later. He is also had multiple back surgeries and neck surgeries. Presented to the emergency department due to complaints of left- sided chest discomfort. The pain was in the left lower chest and he felt it was radiating to his back. Described the discomfort as sharp. No aggravating or relieving factors and no associated symptoms. According to the patient in 1991 when he had his AL the discomfort was a midsternal heaviness he described as a bowling ball sitting on his chest. 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 Laboratory values show BUN of 22, creatinine 0.85, troponins negative 3 and elevated d- dimer at 0.96. CT of the chest was performed that revealed no evidence of PE. Patient has been hypertensive with a blood pressure of 191/87 this morning. Current medications include Flomax, Proscar, Lipitor 80 mg by mouth daily, aspirin 81 mg by mouth daily, isosorbide mononitrate 20 mg by mouth twice a day , and lisinopril 10 mg by mouth daily. Upon examination, patient is resting comfortable in bed. He currently feels that his discomfort may have been coming from his back. He denies further complaints of chest discomfort, he has no complaints of shortness of breath, palpitations, diaphoresis, nausea, indigestion, dizziness or lightheadedness. He's had no edema and no complaints of orthopnea. Most recent available echocardiogram from July 2017 showed normal LV systolic function with mild MR. Past Medical History Past Medical History: Coronary Artery Disease (CAD), Hyperlipidemia, Hypertension, Myocardial Infarction ([place]), Osteoarthritis ([place]), Pneumonia, Prostate Disorder Additional Past Medical History / Comment(s): has some balance issuse, uses cane when outside home, seasonal allergies, sinus problems, ddd Last Myocardial Infarction Date:: 1991 History of Any Multi-Drug Resistant Organisms: None Reported Past Surgical History: Back Surgery, Heart Catheterization, Heart Catheterization With Stent, Orthopedic Surgery Additional Past Surgical History / Comment(s): colonoscopy/polypectomy, 2 Neck surgery, 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 States he went home and slept for about 4 hrs. that day. Date of Last Stent Placement:: 2012 Past Psychological History: No Psychological Hx Reported Additional Psychological History / Comment(s): pt lives with in single level home that has 3 porch steps. has 1 pet dog. pt uses cane when outdoors, drives. no home care services, . pt served in [employer] from [phone]. worked for [employer] from 1962 to 1991 Smoking Status: Former smoker Past Alcohol Use History: None Reported Additional Past Alcohol Use History / Comment(s): QUIT SMOKING IN 1989, SMOKED SINCE AGE 18 (1952) SMOKED 1 PPD, past heavy etoh but quit 1986. Past Drug Use History: None Reported - Past Family History Father Family Medical History: Myocardial Infarction ([place]) Additional Family Medical History / Comment(s): several mi's, bu from complications of pedestrain/mva-head injury. Mother Family Medical History: CVA/TIA Medications and Allergies Home Medications Medication Instructions Recorded Confirmed Type Isosorbide Mononitrate [Ismo] 20 mg PO BID 03/25/14 08/12/18 History Tamsulosin HCl [Flomax] 0.4 mg PO DAILY 03/25/14 08/12/18 History Aspirin 81 mg PO DAILY 01/07/15 08/12/18 History Lisinopril [Zestril] 10 mg PO DAILY #30 tab 08/02/17 08/12/18 Rx Atorvastatin Calcium [Lipitor] 80 mg PO DAILY 08/12/18 08/12/18 History Finasteride [Proscar] 5 mg PO DAILY 08/12/18 08/12/18 History Methyl Salicylate/Menthol 1 patch TOPICAL Q8HR PRN 08/12/18 08/12/18 History [Salonpas Patch] Naproxen Sodium [Aleve] 1 tab PO DAILY PRN 08/12/18 08/12/18 History Allergies Allergy/AdvReac Type Severity Reaction Status Date / Time No Known Allergies Allergy Verified 08/12/18 10:35 Physical Exam Vitals: Vital Signs Temp Pulse Pulse Resp BP BP Pulse Ox 08/13/18 08:48 97.7 F 71 18 191/87 96 08/13/18 04:00 97.9 F 54 L 17 148/69 96 08/13/18 00:00 97.9 F 66 18 154/66 66 L 08/12/18 20:00 97.6 F 48 L 17 156/72 96 08/12/18 15:05 60 18 189/87 98 08/12/18 14:30 98.0 F 50 L 16 150/71 99 08/12/18 14:00 47 L 18 150/65 99 08/12/18 13:30 49 L 17 145/71 100 08/12/18 13:00 48 L 16 143/61 98 08/12/18 12:00 51 L 17 142/118 98 08/12/18 11:30 49 L 18 176/80 98 08/12/18 11:00 53 L 22 166/73 98 08/12/18 10:16 98 F 53 L 18 191/78 99 Intake and Output 08/12/18 08/13/18 08/13/18 22:59 06:59 14:59 Intake Total 240 0 Balance 240 0 Intake: Oral 240 0 Other: Voiding Method Toilet Toilet Urinal Urinal # Voids 1 1 Weight 69.5 kg PHYSICAL EXAMINATION: HEENT: Head is atraumatic, normocephalic. Pupils equal, round. Neck is supple. There is no elevated jugular venous pressure. HEART EXAMINATION: Heart sounds regular, S1 and S2 with systolic murmur. CHEST EXAMINATION: Lungs are clear to auscultation and precussion. No chest wall tenderness is noted on palpation or with deep breathing. ABDOMEN: Soft, nontender. Bowel sounds are heard. No organomegaly noted. EXTREMITIES: 2+ peripheral pulses with no evidence of peripheral edema and no calf tenderness noted. NEUROLOGIC patient is awake, alert and oriented x3. . Results 08/12/18 10:40 08/12/18 10:40 Cardiac Enzymes 08/12/18 08/12/18 08/12/18 Range/Units 10:40 10:40 16:37 AST 26 (17-59) U/L CK-MB (CK-2) 3.1 H 2.4 (0.0-2.4) ng/mL Troponin I <0.012 0.013 (0.000-0.034) ng/mL 08/12/18 Range/Units 23:57 AST (17-59) U/L CK-MB (CK-2) 1.9 (0.0-2.4) ng/mL Troponin I 0.014 (0.000-0.034) ng/mL Coagulation 08/12/18 Range/Units 10:40 PT 10.5 (9.0-12.0) sec APTT 24.2 (22.0-30.0) sec Lipids 08/12/18 Range/Units 10:40 Triglycerides 62 (<150) mg/dL Cholesterol 120 (<200) mg/dL HDL Cholesterol 50 (40-60) mg/dL CBC 08/12/18 Range/Units 10:40 WBC 8.1 (3.8-10.6) k/uL RBC 4.54 (4.30-5.90) m/uL Hgb 13.9 (13.0-17.5) gm/dL Hct 42.5 (39.0-53.0) % Plt Count 216 (150-450) k/uL Comprehensive Metabolic Panel 08/12/18 Range/Units 10:40 Sodium 139 (137-145) mmol/L Potassium 4.4 (3.5-5.1) mmol/L Chloride 108 H (98-107) mmol/L Carbon Dioxide 24 (22-30) mmol/L BUN 22 H (9-20) mg/dL Creatinine 0.85 (0.66-1.25) mg/dL Glucose 121 H (74-99) mg/dL Calcium 9.2 (8.4-10.2) mg/dL AST 26 (17-59) U/L ALT 40 (21-72) U/L Alkaline Phosphatase 73 (38-126) U/L Total Protein 5.7 L (6.3-8.2) g/dL Albumin 3.5 (3.5-5.0) g/dL Current Medications Generic Name Dose Route Start Last Admin Trade Name Freq PRN Reason Stop Dose Admin Aspirin 81 mg 08/13/18 09:00 08/13/18 08:41 Aspirin PO 81 mg DAILY FATMATA Administration Atorvastatin Calcium 80 mg 08/13/18 09:00 08/13/18 08:41 Lipitor PO 80 mg DAILY FATMATA Administration Finasteride 5 mg 08/13/18 09:00 08/13/18 08:41 Proscar PO 5 mg DAILY FATMATA Administration Isosorbide Mononitrate 20 mg 08/12/18 21:00 08/13/18 08:41 Ismo PO 20 mg BID FATMATA Administration Lisinopril 10 mg 08/13/18 09:00 08/13/18 08:41 Zestril PO 10 mg DAILY FATMATA Administration Methyl Salicylate 1 applic 08/12/18 18:18 Thera-Gesic Cream TOPICAL Q8HR PRN pain Naproxen 250 mg 08/12/18 18:18 Naprosyn PO DAILY PRN Pain Nitroglycerin 0.4 mg 08/12/18 13:58 Nitrostat SUBLINGUAL Q5M PRN Chest Pain Tamsulosin HCl 0.4 mg 08/13/18 09:00 08/13/18 08:41 Flomax PO 0.4 mg DAILY FATMATA Administration Intake and Output 08/12/18 08/13/18 08/13/18 22:59 06:59 14:59 Intake Total 240 0 Balance 240 0 Intake: Oral 240 0 Other: Voiding Method Toilet Toilet Urinal Urinal # Voids 1 1 Weight 69.5 kg 08/12/18 10:40 08/12/18 10:40 EKG Interpretations (text) Sinus bradycardia, prior inferior and prior anterior infarct Assessment and Plan Assessment: #1 symptoms of left-sided chest discomfort, atypical, troponins negative 3 #2 history of CAD with prior stenting #3 remote history of AL #4 hypertension, poorly controlled #5 hyperlipidemia #6 history of multiple spinal surgeries Plan: From cardiology's perspective, patient is currently stable no further complaints of chest discomfort. He is stable for discharge. We will call him tomorrow from the office to set up a Lexiscan Cardiolite and a 2-D echo with Doppler to be done early in the week and will follow-up with the patient thereafter. [employer] TECH note has been reviewed, I agree with a documented findings and plan of care. Patient was seen and examined.
--- NOTE | 2018-08-13 11:12 | P.HPIM ---
History of Present Illness H&P Date: 08/13/18 Chief Complaint: chest pain This will serve both as a H&P and discharge summary This is an 82-year-old male patient of Dr. Myers and Dr. Michel with a past medical history coronary artery disease status post stent in 1996, history of hypertension, BPH neck and back surgeries for degenerative arthritis. Patient presented to the emergency department with midsternal chest pain that radiated to the back. Patient reports that it woke him from his sleep , he got out of bed and sat in a chair for a while, and chest pain subsided. Patient decided to proceed to the emergency department for evaluation. Patient was recently discharged on 08/02/17 for chest pain, at that time acute coronary syndrome was ruled out. He was evaluated cardiology at that time and also had an echocardiogram that revealed normal LV systolic function with mild mitral regurgitation. Upon examination this morning, patient's resting bed comfortably he has not had any chest pain, palpitations, nausea, vomiting, abdominal pain, or dizziness. Troponins negative 3, slightly elevated d-dimer at 0.96. CTA of the chest showed no evidence for acute pulmonary embolism. EKG on this admission showed sinus bradycardia. He has been consulted by cardiology and feels he is stable for discharge. He will follow-up with cardiology to set up a Marcella scan and 2-D echo with Doppler. Review of Systems Constitutional: Denies chills, Denies fever Ears, nose, mouth and throat: Denies headache, Denies nasal congestion, Denies nasal discharge, Denies sore throat Cardiovascular: Denies chest pain, Denies dyspnea on exertion, Denies edema, Denies orthopnea, Denies palpitations, Denies shortness of breath, Denies syncope Respiratory: Denies congestion, Denies cough, Denies dyspnea, Denies pain Gastrointestinal: Denies bloating, Denies heartburn, Denies indigestion, Denies nausea, Denies vomiting Musculoskeletal: Denies atrophy, Denies fractures, Denies myalgias Integumentary: Denies pruritus, Denies rash, Denies wounds Neurological: Denies numbness, Denies paresthesias, Denies syncope, Denies weakness, Denies visual changes Past Medical History Past Medical History: Coronary Artery Disease (CAD), Hyperlipidemia, Hypertension, Myocardial Infarction ([place]), Osteoarthritis (OA), Pneumonia, Prostate Disorder Additional Past Medical History / Comment(s): has some balance issuse, uses cane when outside home, seasonal allergies, sinus problems, ddd Last Myocardial Infarction Date:: 1991 History of Any Multi-Drug Resistant Organisms: None Reported Past Surgical History: Back Surgery, Heart Catheterization, Heart Catheterization With Stent, Orthopedic Surgery Additional Past Surgical History / Comment(s): colonoscopy/polypectomy, 2 Neck surgery, 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 States he went home and slept for about 4 hrs. that day. Date of Last Stent Placement:: 2012 Past Psychological History: No Psychological Hx Reported Additional Psychological History / Comment(s): pt lives with in single level home that has 3 porch steps. has 1 pet dog. pt uses cane when outdoors, drives. no home care services, . pt served in [employer] from [id number]. worked for [employer] from 1962 to 1991 Smoking Status: Former smoker Past Alcohol Use History: None Reported Additional Past Alcohol Use History / Comment(s): QUIT SMOKING IN 1989, SMOKED SINCE AGE 18 (1950) SMOKED 1 PPD, past heavy etoh but quit 1986. Past Drug Use History: None Reported - Past Family History Father Family Medical History: Myocardial Infarction ([place]) Additional Family Medical History / Comment(s): several mi's, bu from complications of pedestrain/mva-head injury. Mother Family Medical History: CVA/TIA Medications and Allergies Home Medications Medication Instructions Recorded Confirmed Type Isosorbide Mononitrate [Ismo] 20 mg PO BID 03/25/14 08/12/18 History Tamsulosin HCl [Flomax] 0.4 mg PO DAILY 03/25/14 08/12/18 History Aspirin 81 mg PO DAILY 01/07/15 08/12/18 History Lisinopril [Zestril] 10 mg PO DAILY #30 tab 08/02/17 08/12/18 Rx Atorvastatin Calcium [Lipitor] 80 mg PO DAILY 08/12/18 08/12/18 History Finasteride [Proscar] 5 mg PO DAILY 08/12/18 08/12/18 History Methyl Salicylate/Menthol 1 patch TOPICAL Q8HR PRN 08/12/18 08/12/18 History [Salonpas Patch] Naproxen Sodium [Aleve] 1 tab PO DAILY PRN 08/12/18 08/12/18 History Allergies Allergy/AdvReac Type Severity Reaction Status Date / Time No Known Allergies Allergy Verified 08/12/18 10:35 Physical Exam Vitals: Vital Signs Temp Pulse Pulse Resp BP BP Pulse Ox 08/13/18 04:00 97.9 F 54 L 17 148/69 96 08/13/18 00:00 97.9 F 66 18 154/66 66 L 08/12/18 20:00 97.6 F 48 L 17 156/72 96 08/12/18 15:05 60 18 189/87 98 08/12/18 14:30 98.0 F 50 L 16 150/71 99 08/12/18 14:00 47 L 18 150/65 99 08/12/18 13:30 49 L 17 145/71 100 08/12/18 13:00 48 L 16 143/61 98 08/12/18 12:00 51 L 17 142/118 98 08/12/18 11:30 49 L 18 176/80 98 08/12/18 11:00 53 L 22 166/73 98 08/12/18 10:16 98 F 53 L 18 191/78 99 Intake and Output 08/12/18 08/13/18 08/13/18 22:59 06:59 14:59 Intake Total 240 Balance 240 Intake: Oral 240 Other: Voiding Method Toilet Toilet Urinal Urinal # Voids 1 1 Weight 69.5 kg - Constitutional General appearance: cooperative, no acute distress - EENT Eyes: EOMI, PERRLA ENT: hearing grossly normal, normal oropharynx - Neck Neck: no lymphadenopathy, normal ROM, no rigidity, no thyromegaly Thyroid: bilateral: normal size, negative: enlarged, nodule - Respiratory Respiratory: bilateral: CTA, negative: dullness, rales, rhonchi, wheezing - Cardiovascular Rhythm: regular Heart sounds: normal: S1, S2 - Gastrointestinal General gastrointestinal: no distended, no organomegaly, soft, no tenderness - Neurologic Neurologic: CNII-XII intact - Musculoskeletal Musculoskeletal: gait normal, no generalized weakness, no right sided weakness, no left sided weakness - Psychiatric Psychiatric: A&O x's 3 Results CBC & Chem 7: 08/12/18 10:40 08/12/18 10:40 Labs: Abnormal Lab Results - Last 24 Hours (Table) 08/12/18 08/12/18 08/12/18 Range/Units 10:40 10:40 10:40 D-Dimer 0.96 H (<0.60) mg/L FEU Chloride 108 H (98-107) mmol/L BUN 22 H (9-20) mg/dL Glucose 121 H (74-99) mg/dL Total Creatine Kinase 208 H (55-170) U/L CK-MB (CK-2) 3.1 H (0.0-2.4) ng/mL Total Protein 5.7 L (6.3-8.2) g/dL Thrombosis Risk Factor Assmnt - Choose All That Apply Any of the Below Risk Factors Present?: Yes Other Risk Factors: Yes Each Risk Factor Represents 3 Points: Age 75 years or older Thrombosis Risk Factor Assessment Total Risk Factor Score: 3 Thrombosis Risk Factor Assessment Level: Moderate Risk Assessment and Plan Plan: 1. chest pain, atypical. Serial troponin's are negative. Recent echo completed. Cardiology consulted and feels patient is stable for discharge, will set up Lexiscan and 2-D echo with Doppler as outpatient. Will continue aspirin 81 mg daily, Lipitor 80 mg daily, isosorbide 20 mg twice a day, and lisinopril 10 mg daily 2. History of CAD with prior stenting. Will continue on aspirin, Lipitor, and lisinopril 3. Hypertension. Continue lisinopril 10 mg daily 4. Hyperlipidemia. Continue atorvastatin 80 mg daily 5. BPH. Continue Flomax 0.4 mg daily and finasteride 5 mg daily The above impression and plan of care have been discussed and directed by signing physician. Angelique Cao nurse practitioner acting as scribe for signing physician.
[2018-08-13 11:33] VITALS: BP 129/74; PULSE 82; TEMP 97.1
== END 2018-08-13 12:16 | disposition home or self-care (01) ==
LOC: EC 10:13 → 3SCARD 13:58
PROVIDERS: ADMIT Internal Medicine; ATTEND Internal Medicine
DX: R07.89 Other chest pain (principal); I10 Essential (primary) hypertension; I25.10 Atherosclerotic heart disease of native coronary artery without angina pectoris; E78.5 Hyperlipidemia, unspecified; I34.0 Nonrheumatic mitral (valve) insufficiency; R79.89 Other specified abnormal findings of blood chemistry; R00.1 Bradycardia, unspecified; M19.90 Unspecified osteoarthritis, unspecified site; J30.2 Other seasonal allergic rhinitis; R26.9 Unspecified abnormalities of gait and mobility; N40.0 Benign prostatic hyperplasia without lower urinary tract symptoms; Z79.1 Long term (current) use of non-steroidal anti-inflammatories (NSAID); Z79.82 Long term (current) use of aspirin; Z79.899 Other long term (current) drug therapy; I25.2 Old myocardial infarction; Z95.5 Presence of coronary angioplasty implant and graft; Z87.01 Personal history of pneumonia (recurrent); Z86.010 Personal history of colon polyps; Z98.42 Cataract extraction status, left eye; Z98.41 Cataract extraction status, right eye; Z87.891 Personal history of nicotine dependence; Z82.49 Family history of ischemic heart disease and other diseases of the circulatory system; Z82.3 Family history of stroke
CPT/HCPCS: 99285; 36415; 93005; 85379; 80061; 80053; 82550; 82553; 83690; 83735; 84484; 85025; 85610; 85730; 71046; 71275; G0378 ×2; S0138; Q9967

== ENCOUNTER 2019-03-16 06:02 | Day surgery (SDC) | payer MEDICARE, OTHER ==
[~2019-03-16 06:02] MED LIST: ALPRAZolam 0.25 MG TAB PO PRN; ASPIRIN 325 MG TAB PO ONE; SODIUM CHLORIDE 0.9% 1,000 ML in EMPTY BAG 1 BAG IV ONE
[2019-03-16 07:19] LABS: African American GFR (CKD) >90 (>60 ml/min/1.73 sqM); Anion Gap 6 mmol/L; Blood Urea Nitrogen 22 mg/dL (9-20); Calcium 9.1 mg/dL (8.4-10.2); Carbon Dioxide 26 mmol/L (22-30); Chloride 108 mmol/L (98-107); Glucose 114 mg/dL (74-99); Potassium 4.1 mmol/L (3.5-5.1); Sodium 140 mmol/L (137-145)
[2019-03-16] MEDS ORDERED: VERAPAMIL 2.5 MG/ML 2 ML AMP ONE (07:32)
[2019-03-16] MEDS ORDERED: fentaNYL (PF) 50 MCG/ML 2 ML AMP ONE ×2 (07:32→07:33)
[2019-03-16] MEDS ORDERED: LIDOCAINE 1% INJ 10MG/ML (20 ML MDV) ONE (07:32)
[2019-03-16] MEDS ORDERED: HEPARIN SODIUM 1,000 UN/ML (10ML VL) ONE (07:32)
[2019-03-16] MEDS ORDERED: fentaNYL (PF) 50 MCG/ML 2 ML AMP IVP ONE (07:46)
[2019-03-16] MEDS ORDERED: LIDOCAINE 1% INJ 10MG/ML (20 ML MDV) SQ ONE (07:49)
[2019-03-16] MEDS ORDERED: MIDAZOLAM (PF) 2 MG/2 ML VIAL IVP ONE (07:50)
[2019-03-16] MEDS ORDERED: VERAPAMIL SYRINGE (5 MG/10 ML) INTRAARTER ONE (07:51)
[2019-03-16 07:52] LABS: Basophils # (A) 0.1 k/uL (0-0.2); Basophils % (A) 1 %; Eosinophils # (A) 0.3 k/uL (0-0.7); Eosinophils % (A) 4 %; HCT 40.4 % (39.0-53.0); HGB 13.9 gm/dL (13.0-17.5); Lymphocytes # (A) 3.5 k/uL (1.0-4.8); Lymphocytes % (A) 40 %; MCH 32.5 pg (25.0-35.0); MCHC 34.4 g/dL (31.0-37.0); MCV 94.4 fL (80.0-100.0); Mean Platelet Volume 6.9; Monocytes # (A) 0.4 k/uL (0-1.0); Monocytes % (A) 5 %; Neutrophils # (A) 4.2 k/uL (1.3-7.7); Neutrophils % (A) 49 %; Platelet Count 250 k/uL (150-450); RBC 4.28 m/uL (4.30-5.90); RDW 15.3 % (11.5-15.5); WBC 8.6 k/uL (3.8-10.6)
[2019-03-16] MEDS ORDERED: BIVALIRUDIN BOLUS 250 MG/50 ML IV ONE (08:05)
[2019-03-16] MEDS ORDERED: CLOPIDOGREL 75 MG TAB ONE (08:06)
[2019-03-16] MEDS ORDERED: BIVALIRUDIN 250 MG in SODIUM CHLORIDE 0.9% 50 ML IV ONE (08:07)
[2019-03-16] MEDS ORDERED: CLOPIDOGREL 75 MG TAB PO ONE (08:09)
[2019-03-16] MEDS ORDERED: IOPAMIDOL-370 125ML BTL INJ ONE (08:17)
[2019-03-16] MEDS ORDERED: NITROGLYCERIN 1000MCG/10ML SYRINGE INTRACORON ONE (08:38)
[2019-03-16] MEDS ORDERED: IOPAMIDOL-370 100ML BTL INJ ONE (08:47)
[2019-03-16] MEDS ORDERED: RX INFO: IV CONTRAST WAS GIVEN 1 EACH MISC MISCELLANE PRN (08:58)
[2019-03-16] MEDS ORDERED: ZOLPIDEM 5 MG TAB PO PRN (08:58)
[2019-03-16] MEDS ORDERED: MAG HYDROX/AL HYDROX/SIMETH 30 ML CUP PO PRN (08:58)
[2019-03-16] MEDS ORDERED: NITROGLYCERIN SL TABS 0.4 MG TAB SUBLINGUAL PRN (08:58)
[2019-03-16] MEDS ORDERED: ATROPINE SULFATE 0.1 MG/ML 10ML SYRINGE IV PRN (08:58)
[2019-03-16] MEDS ORDERED: SODIUM CHLORIDE 0.9% 1,000 ML IV SCH (09:00)
--- NOTE | 2019-03-16 11:43 | CC ---
CARDIAC CATHETERIZATION REPORT CARDIAC CATHETERIZATION PROCEDURE NOTE: 03/17/2005 Mr. Bright is an 84-year-old male with a known history of coronary artery disease, history of hypertension, hyperlipidemia, who presented with symptoms of progressive dyspnea on exertion with mild physical activity. In view of that, recommendation made regarding cardiac catheterization. The procedures, risks, and complications were discussed with the patient who is in full understanding and agreement. PROCEDURE: Patient was brought to the pharmaceutical laboratory technician in a fasting semi-sedated state after receiving fentanyl and Benadryl and achieving moderate conscious sedated state. Using Xylocaine anesthesia and Seldinger technique, a 6-Khmer sheath was introduced in the right radial artery. Selective right and left coronary angiography were performed using 5- Khmer, 3.5 bend right and left Ashley catheter of multiple view of the coronary including hemiaxial views were obtained. Following that, angioplasty and stenting was performed. Following that, a 5-Khmer tight pigtail catheter was introduced in the left ventricle and a 30 degree LOYA view of the left ventricle was obtained. Following that, catheter and sheath were removed. Hemostasis was obtained and deployment of TR band. There was no immediate complication patient is returned to his room in stable condition. Of note, the patient received intra-arterial verapamil. FINDINGS: FLUOROSCOPY: There was severe calcification involving the LAD and the right coronary artery. LEFT MAIN: This is a large-sized vessel, bifurcating into left circumflex, left anterior descending artery. Left main coronary artery has no evidence of high-grade stenosis. LEFT ANTERIOR DESCENDING ARTERY: This is a large-sized vessel reaching toward the apex with a wraparound apex segment, heavily calcified in the proximal and mid segment giving rise to 2 diagonal branch in the proximal segment, a tubular lesion of 30%-40%. In the mid segment, there is a focal 90% stenosis. Beyond that, the vessel has no high- grade stenosis. LEFT CIRCUMFLEX: This is a nondominant vessel giving rise to 2 obtuse marginal branch. The left circumflex has mild intimal disease throughout its course of 20% to 30% without any evidence of high-grade stenosis next right coronary artery this is a large dominant vessel bifurcating into PDA, posterolateral segment and branches. The mid stented segment in the right coronary artery is patent. There is intimal disease of 20% to 30%. The vessel is calcified. LEFT VENTRICULOGRAM: Left ventriculogram is performed in 30 degree LOYA view and revealed inferobasal hypokinesis, there is major ejection fraction of 50%. There was no significant mitral regurgitation. HEMODYNAMICS: There was no gradient across the aortic valve abdomen: Left ventricular end-diastolic pressure was 16-20 mmHg. CONCLUSION: 1. Heavily calcified coronary arteries. 2. Critical stenosis in the mid left anterior descending artery. 3. Mild to moderate disease in the left circumflex and the right coronary artery with no evidence of significant restenosis in the right coronary artery. 4. Mildly impaired left ventricular systolic function. RECOMMENDATION: In view of finding anatomy, I recommend proceeding with angioplasty and stenting of the LAD. The procedures, risks, and complications were discussed with the patient who is in full understanding and agreement. MMODL / IJN: [id number] /
--- NOTE | 2019-03-16 11:53 | LTR ---
DATE OF SERVICE: 03/16/2019 RE: Ruiz Bright Dear Dr. Michel; I had the pleasure to perform cardiac catheterization and coronary angioplasty and stenting on Mr. Bright at [facility] on March 16, 2019 and a full copy of the procedure note will be forwarded to you. In brief, he was found to have critical stenosis in a calcified segment of the mid LAD, underwent successful stenting of that vessel. I am hopeful that this procedure will stabilize his status. Thank you again for allowing me to participate in this patient's care. Please feel free to call for any question or concern. Sincerely yours, Hamilton Myers MD MMELAL / CRITSOBALN: [id number] /
--- NOTE | 2019-03-16 11:53 | PTCA ---
PERCUTANEOUSTRANS CORORONARY ANGIOGRAPHY Mr. Bright is an 84-year-old male with a known history of coronary artery disease who presented with symptoms of progressive dyspnea. In view of that, I underwent cardiac catheterization, was found to have a critical stenosis in the mid LAD and a calcified segment. In view of that, recommendation was made regarding angioplasty and stenting. The procedures, risks, and complication were discussed with the patient who is in full understanding and agreement. PROCEDURE: A 6-Estonian FL 3.5 guiding catheter introduced in the system, after cannulating the left main, a 0.014 balanced medium weight J-wire was advanced and positioned distally. Subsequently, 2.5 x 12 mm Trek balloon was advanced and inflation up to 10 atmospheres were done. Following that, the balloon was removed and another 0.014 balanced medium weight J-wire was advanced next to the first one in a hossein fashion. Attempts to advance a 2.75 x 12 mm Xience Vanita stent were unsuccessful because of the calcification. That stent was removed and one of the BMW wire were removed and a GuideLiner was advanced and attempt to advance the stent over the Guideliner were unsuccessful after through the guidewire were unsuccessful. That stent was removed and attempt to advance a 2.75 x 8 mm Xience Vanita stent were unsuccessful as well. At that time the stent was removed and a 2.5 x 12 mm Trek balloon was advanced and an inflation at 16 atmospheres was done. Following that, the balloon was removed and a 2.75 x 8 mm Xience Vanita stent was advanced, deployed and post at 16 atmospheres. After the last inflation, after appropriate wait, the balloon and the guidewire were withdrawn back in the guiding catheter. Images were obtained and repeated. those images reveal stable successful stenting. At that point, the guiding catheter, the balloon and the guidewire were removed and left ventriculogram was performed. Following that, catheter and sheath were removed. Hemostasis was obtained with deployment of a TR band. There was no immediate complication. Patient is returned to his room in stable condition. Of note, the patient received Angiomax per protocol as well as oral loading dose of clopidogrel. He had chest discomfort with the inflation, that resolved at the end of the procedure. RESULTS: Successful stenting of the mid LAD in a heavily calcified segment with reduction of stenosis from 90% to 0%. RECOMMENDATION: Patient will be continued on aspirin, Plavix and statin. The importance of dual antiplatelet treatment were discussed with the patient and his family and they are in full understanding and agreement. Duration of procedure is 63 minutes. TANIA / CRISTOBALN: [id number] /
[2019-03-16 16:36] VITALS: BMI 22.6
[2019-03-16] MEDS: ISOSORBIDE MONONITRATE 20 MG TAB PO SCH (20:35)
[2019-03-16] MEDS ORDERED: FINASTERIDE 5 MG TAB PO SCH (21:00)
[2019-03-16] MEDS ORDERED: ATORVASTATIN 80 MG TAB PO SCH (21:00)
[2019-03-16] MEDS ORDERED: LISINOPRIL 10 MG TAB PO SCH (21:00)
[2019-03-17 04:12] VITALS: PULSE 64
[2019-03-17 08:21] LABS: African American GFR (CKD) >90 (>60 ml/min/1.73 sqM); Anion Gap 7 mmol/L; Blood Urea Nitrogen 18 mg/dL (9-20); Calcium 8.7 mg/dL (8.4-10.2); Carbon Dioxide 23 mmol/L (22-30); Chloride 109 mmol/L (98-107); Glucose 105 mg/dL (74-99); Potassium 3.9 mmol/L (3.5-5.1); Sodium 139 mmol/L (137-145)
[2019-03-17 08:30] VITALS: BP 157/69; RESP 20; TEMP 97.7
[2019-03-17] MEDS ORDERED: CLOPIDOGREL 75 MG TAB PO SCH (09:00)
[2019-03-17] MEDS ORDERED: LISINOPRIL 10 MG TAB PO SCH (09:00)
[2019-03-17] MEDS ORDERED: ASPIRIN 81 MG PO SCH (09:00)
[2019-03-17] MEDS: ISOSORBIDE MONONITRATE 20 MG TAB PO SCH (09:04)
--- NOTE | 2019-03-17 09:05 | PN ---
PROGRESS NOTE Mr. Bright is an 84-year-old male with a known history of coronary artery disease who presented with symptoms of progressive dyspnea on exertion. Underwent cardiac catheterization, was found to have significant obstructive disease involving the mid LAD and a heavily calcified segment, underwent stenting of that vessel. He is doing well this morning. His breathing is stable. He is denying any chest pain. No dizziness. No palpitation. He continues to be on aspirin once a day, Lipitor 80 mg daily, Plavix 75 mg daily, isosorbide mononitrate 20 mg twice a day, lisinopril 10 mg daily. PHYSICAL EXAMINATION: Blood pressure 157/60 with a heart rate in the 60s. LUNGS: Clear. Heart: Regular rate and rhythm S1, S2. No S3 with systolic murmur. No diastolic murmur. ABDOMEN: Soft and nontender. EXTREMITIES: No edema. Right radial pulse intact. LAB DATA: BUN and creatinine of 18 and 0.84. Potassium 3.9. IMPRESSION: 1. Status post stenting of the left anterior descending coronary artery. 2. Hypertension. 3. Hyperlipidemia. RECOMMENDATIONS: The patient should be able to be discharged home today and followed as an outpatient. The dose of his lisinopril will be increased to optimize his blood pressure control. MMODL / IJN: [id number] /
== END 2019-03-17 11:10 | disposition home or self-care (01) ==
LOC: CATHCVL 06:02 → 3SCARD 15:47 → CATHCVL 03-17 11:10
PROVIDERS: ATTEND Internal Medicine Interventional Cardiology
DX: I25.10 Atherosclerotic heart disease of native coronary artery without angina pectoris (principal); I25.84 Coronary atherosclerosis due to calcified coronary lesion; I10 Essential (primary) hypertension; E78.2 Mixed hyperlipidemia; Z87.891 Personal history of nicotine dependence; I65.23 Occlusion and stenosis of bilateral carotid arteries; I73.9 Peripheral vascular disease, unspecified; Z82.49 Family history of ischemic heart disease and other diseases of the circulatory system; Z95.5 Presence of coronary angioplasty implant and graft; Z79.1 Long term (current) use of non-steroidal anti-inflammatories (NSAID); Z79.899 Other long term (current) drug therapy; Z88.8 Allergy status to other drugs, medicaments and biological substances
CPT/HCPCS: 93458; 85347; 80048 ×2; 85025; C9600; C1769 ×2; C1887; C1725; C1874; S0138; J2001; J3010; J0583; Q9967 ×2; J2250

== ENCOUNTER 2019-12-06 14:27 | Inpatient (IN) | payer MEDICARE, OTHER ==
--- NOTE | 2019-12-06 14:58 | ED ---
General Adult HPI - General Chief complaint: Shortness of Breath Stated complaint: chest pain Time Seen by Provider: 12/06/19 14:30 Source: patient, RN notes reviewed, old records reviewed Mode of arrival: wheelchair Limitations: no limitations - History of Present Illness Initial comments: This is an 84-year-old male presents emergency Department with a past HISTORY significant for coronary artery disease with 2 stents placed in the past. Patient states over the last couple days she's been considerably more short of breath particularly with exertion. Patient denies any fever chills or cough. Patient denies any chest pain. Patient denies any lightheadedness or dizziness. Patient denies any palpitations. Patient denies any abdominal pain. Patient denies any nausea vomiting diarrhea. Patient states he smoked but was well over 40 years ago. Patient has no swelling to his legs or any calf tenderness. - Related Data Home Medications Medication Instructions Recorded Confirmed Isosorbide Mononitrate [Ismo] 20 mg PO BID 03/25/14 03/16/19 Aspirin 81 mg PO DAILY 01/07/15 03/16/19 Atorvastatin Calcium [Lipitor] 80 mg PO HS 08/12/18 03/16/19 Finasteride [Proscar] 5 mg PO HS 08/12/18 03/16/19 Previous Rx's Medication Instructions Recorded Clopidogrel [Plavix] 75 mg PO DAILY #90 tab 03/17/19 Lisinopril [Zestril] 10 mg PO BID #180 tab 03/17/19 Nitroglycerin Sl Tabs [Nitrostat] 0.4 mg SUBLINGUAL Q5M PRN #25 tab 03/17/19 Allergies Allergy/AdvReac Type Severity Reaction Status Date / Time adhesive dressings Allergy pulls skin Uncoded 12/06/19 14:31 off Review of Systems ROS Statement: Those systems with pertinent positive or pertinent negative responses have been documented in the HPI. ROS Other: All systems not noted in ROS Statement are negative. Past Medical History Past Medical History: Hyperlipidemia, Hypertension, Myocardial Infarction ([place]), Osteoarthritis (OA), Pneumonia Additional Past Medical History / Comment(s): has some balance issue, uses cane when outside home, sinus problems, Last Myocardial Infarction Date:: 1993 History of Any Multi-Drug Resistant Organisms: None Reported Past Surgical History: Back Surgery, Heart Catheterization, Tonsillectomy Additional Past Surgical History / Comment(s): 2 Neck surgery, STATES HAS "PLASTIC" IN NECK, METAL IN BACK, STENT IN HEART X1, NORTH CATARACTS, Past Anesthesia/Blood Transfusion Reactions: No Reported Reaction Additional Past Anesthesia/Blood Transfusion Reaction / Comment(s): denies PONV Date of Last Stent Placement:: 2012 Past Psychological History: No Psychological Hx Reported Smoking Status: Former smoker Past Alcohol Use History: None Reported Past Drug Use History: None Reported - Past Family History Father Family Medical History: Myocardial Infarction ([place]) Additional Family Medical History / Comment(s): . General Exam - General Exam Comments Initial Comments: GENERAL: Patient is well-developed and well-nourished. Patient is nontoxic and well- hydrated and is in no acute distress. ENT: Neck is soft and supple. No significant lymphadenopathy is noted. Oropharynx is clear. Moist mucous membranes. Neck has full range of motion without eliciting any pain. EYES: The sclera were anicteric and conjunctiva were pink and moist. Extraocular movements were intact and pupils were equal round and reactive to light. Eyelids were unremarkable. PULMONARY: Unlabored respirations. Good breath sounds bilaterally. No audible rales rhonchi or wheezing was noted. CARDIOVASCULAR: She has a regular rate and about 55 beats a minute. ABDOMEN: Soft and nontender with normal bowel sounds. SKIN: Skin is clear with no lesions or rashes and otherwise unremarkable. NEUROLOGIC: Patient is alert and oriented x3. Cranial nerves II through XII are grossly intact. Motor and sensory are also intact. Normal speech, volume and content. Symmetrical smile. MUSCULOSKELETAL: Normal extremities with adequate strength and full range of motion. No lower extremity swelling or edema. No calf tenderness. LYMPHATICS: No significant lymphadenopathy is noted PSYCHIATRIC: Normal psychiatric evaluation. Limitations: no limitations Course Vital Signs 12/06/19 12/06/19 14:28 15:04 Temperature 98.0 F Pulse Rate 54 L Respiratory 18 24 Rate Blood Pressure 140/59 O2 Sat by Pulse 98 Oximetry Medical Decision Making - Medical Decision Making ekg SHOWS SINUS BRADYCARDIA AT 47 BPM pr INTERVAL IS 214 qrs 92 qt INTERVAL 434 qtc IS 384. pATIENT'S ekg SHOWS NO st SEGMENT ELEVATION OR DEPRESSION. Chest x-ray showed no acute abnormality. Patient states she remained short of breath even in the room she gets up and moves a little. Computed tomography scan showed no acute abnormality. I spoke with Dr. Anand he agreed to admit the patient admitted the patient wrote admitting orders. - Lab Data Result diagrams: 12/06/19 14:48 12/06/19 14:48 Lab Results 12/06/19 12/06/19 12/06/19 Range/Units 14:48 14:48 14:48 WBC 8.6 (3.8-10.6) k/uL RBC 4.44 (4.30-5.90) m/uL Hgb 13.8 (13.0-17.5) gm/dL Hct 42.0 (39.0-53.0) % MCV 94.5 (80.0-100.0) fL MCH 31.1 (25.0-35.0) pg MCHC 33.0 (31.0-37.0) g/dL RDW 12.8 (11.5-15.5) % Plt Count 194 (150-450) k/uL Neutrophils % 63 % Lymphocytes % 24 % Monocytes % 6 % Eosinophils % 4 % Basophils % 1 % Neutrophils # 5.4 (1.3-7.7) k/uL Lymphocytes # 2.1 (1.0-4.8) k/uL Monocytes # 0.5 (0-1.0) k/uL Eosinophils # 0.4 (0-0.7) k/uL Basophils # 0.1 (0-0.2) k/uL PT 10.3 (9.0-12.0) sec INR 1.0 (<1.2) APTT 22.3 (22.0-30.0) sec D-Dimer 0.87 H (<0.60) mg/L FEU Sodium 136 L (137-145) mmol/L Potassium 4.6 (3.5-5.1) mmol/L Chloride 106 (98-107) mmol/L Carbon Dioxide 22 (22-30) mmol/L Anion Gap 8 mmol/L BUN 22 H (9-20) mg/dL Creatinine 0.94 (0.66-1.25) mg/dL Est GFR (CKD-EPI)AfAm 87 (>60 ml/min/1.73 sqM) Est GFR (CKD-EPI)NonAf 76 (>60 ml/min/1.73 sqM) Glucose 118 H (74-99) mg/dL Plasma Lactic Acid Bryn (0.7-2.0) mmol/L Calcium 9.3 (8.4-10.2) mg/dL Magnesium 1.9 (1.6-2.3) mg/dL Total Bilirubin 1.0 (0.2-1.3) mg/dL AST 31 (17-59) U/L ALT 26 (4-49) U/L Alkaline Phosphatase 73 (38-126) U/L Troponin I (0.000-0.034) ng/mL NT-Pro-B Natriuret Pep pg/mL Total Protein 6.0 L (6.3-8.2) g/dL Albumin 3.6 (3.5-5.0) g/dL 12/06/19 12/06/19 12/06/19 Range/Units 14:48 14:48 14:48 WBC (3.8-10.6) k/uL RBC (4.30-5.90) m/uL Hgb (13.0-17.5) gm/dL Hct (39.0-53.0) % MCV (80.0-100.0) fL MCH (25.0-35.0) pg MCHC (31.0-37.0) g/dL RDW (11.5-15.5) % Plt Count (150-450) k/uL Neutrophils % % Lymphocytes % % Monocytes % % Eosinophils % % Basophils % % Neutrophils # (1.3-7.7) k/uL Lymphocytes # (1.0-4.8) k/uL Monocytes # (0-1.0) k/uL Eosinophils # (0-0.7) k/uL Basophils # (0-0.2) k/uL PT (9.0-12.0) sec INR (<1.2) APTT (22.0-30.0) sec D-Dimer (<0.60) mg/L FEU Sodium (137-145) mmol/L Potassium (3.5-5.1) mmol/L Chloride (98-107) mmol/L Carbon Dioxide (22-30) mmol/L Anion Gap mmol/L BUN (9-20) mg/dL Creatinine (0.66-1.25) mg/dL Est GFR (CKD-EPI)AfAm (>60 ml/min/1.73 sqM) Est GFR (CKD-EPI)NonAf (>60 ml/min/1.73 sqM) Glucose (74-99) mg/dL Plasma Lactic Acid Bryn 1.3 (0.7-2.0) mmol/L Calcium (8.4-10.2) mg/dL Magnesium (1.6-2.3) mg/dL Total Bilirubin (0.2-1.3) mg/dL AST (17-59) U/L ALT (4-49) U/L Alkaline Phosphatase (38-126) U/L Troponin I 0.014 (0.000-0.034) ng/mL NT-Pro-B Natriuret Pep 420 pg/mL Total Protein (6.3-8.2) g/dL Albumin (3.5-5.0) g/dL Disposition Clinical Impression: Dyspnea, Bradycardia Disposition: ADMITTED IP TO THIS [facility] Referrals: Nayeli Michel MD [Primary Care Provider] - 1-2 days Time of Disposition: 17:26
[2019-12-06 15:04] LABS: Basophils # (A) 0.1 k/uL (0-0.2); Basophils % (A) 1 %; Eosinophils # (A) 0.4 k/uL (0-0.7); Eosinophils % (A) 4 %; HGB 13.8 gm/dL (13.0-17.5); Lymphocytes # (A) 2.1 k/uL (1.0-4.8); Lymphocytes % (A) 24 %; MCH 31.1 pg (25.0-35.0); MCV 94.5 fL (80.0-100.0); Mean Platelet Volume 7.1; Monocytes # (A) 0.5 k/uL (0-1.0); Monocytes % (A) 6 %; Neutrophils # (A) 5.4 k/uL (1.3-7.7); Neutrophils % (A) 63 %; Platelet Count 194 k/uL (150-450); RBC 4.44 m/uL (4.30-5.90); RDW 12.8 % (11.5-15.5); WBC 8.6 k/uL (3.8-10.6)
[2019-12-06 15:14] LABS: Albumin 3.6 g/dL (3.5-5.0); Calcium 9.3 mg/dL (8.4-10.2); Magnesium 1.9 mg/dL (1.6-2.3); Potassium 4.6 mmol/L (3.5-5.1)
[2019-12-06 15:20] LABS: Partial Thromboplastin Time 22.3 sec (22.0-30.0); Prothrombin Time 10.3 sec (9.0-12.0)
--- NOTE | 2019-12-06 15:29 | XR ---
EXAMINATION TYPE: XR chest 2V DATE OF EXAM: 12/06/2019 COMPARISON: Prior chest x-ray 08/12/2018 HISTORY: Difficulty breathing TECHNIQUE: Frontal and lateral views of the chest are obtained. FINDINGS: Postop changes are noted to the cervical, upper thoracic spine. Postop changes are noted to the lower thoracic spine. There is no focal air space opacity, pleural effusion, or pneumothorax see n. The cardiac silhouette size is within normal limits. Aorta is dense. The osseous structures show some mild decrease in mineralization, arthropathy present at the acromion clavicular joints thoracic spondylosis is present.. There are overlying cardiac leads. IMPRESSION: No acute cardiopulmonary process.
[2019-12-06 15:31] LABS: D-Dimer 0.87 mg/L FEU (<0.60)
--- NOTE | 2019-12-06 17:08 | CT ---
EXAMINATION TYPE: CT chest angio for PE DATE OF EXAM: 12/06/2019 COMPARISON: 08/12/2018 HISTORY: 84-year-old male Shortness of breath. TECHNIQUE: Contiguous axial scanning of the chest performed with IV Contrast, patient injected with 1 00 mL of Isovue 370. Coronal/sagittal MIP reconstructions performed. CT DLP: 373.8 mGycm Automated exposure control for dose reduction was used. FINDINGS: Heart normal size without pericardial effusion. No flattening of the interventricular septum reflux o f contrast into the hepatic veins. Three-vessel coronary artery calcifications are present. Mild to moderate bilateral gynecomastia. Stable prominent 1.0 cm right hilar lymph node. Otherwise, n o thoracic lymphadenopathy by CT size criteria. Moderate scattered plaque and calcifications throughout the aortic arch and descending thoracic aorta . Conventional arterial supply to the anatomy. Satisfactory opacification the pulmonary arterial system without evidence for pulmonary embolus. Moderate centrilobular emphysema. Dependent atelectasis. Slight bibasilar lower lobe bronchiolectasis . No consolidation or pleural effusion. Moderate atherosclerotic calcifications continue into the visualized upper abdominal aorta. Anterior splenule. 9 mm dependent gallstone. Bones: Lower thoracic lumbar fusion hardware partially visualized as well as cervical fusion hardware . IMPRESSION: 1. NO EVIDENCE FOR PULMONARY EMBOLUS. 2. COPD WITH MODERATE EMPHYSEMA. NO ACUTE PULMONARY PROCESS SEEN. 3. CAD. 4. CHOLELITHIASIS.
[2019-12-06] MEDS ORDERED: NITROGLYCERIN SL TABS 0.4 MG TAB SUBLINGUAL PRN (17:26)
[2019-12-07 04:06] LABS: Cholesterol 126 mg/dL (<200); HDL Cholesterol 52 mg/dL (40-60); LDL Cholesterol,Calculated 60 mg/dL (0-99); Triglycerides 71 mg/dL (<150)
[2019-12-07] MEDS ORDERED: SODIUM CHLORIDE 0.9% 1,000 ML in EMPTY BAG 1 BAG IV ONE (08:48)
[2019-12-07] MEDS ORDERED: ALPRAZolam 0.25 MG TAB PO PRN (08:48)
[2019-12-07] MEDS ORDERED: ASPIRIN 325 MG TAB PO STA (08:48)
[2019-12-07] MEDS ORDERED: ALPRAZolam 0.5 MG TAB PO PRN (08:48)
[2019-12-07] MEDS ORDERED: LISINOPRIL 10 MG TAB PO SCH (09:00)
[2019-12-07] MEDS ORDERED: ISOSORBIDE MONONITRATE 20 MG TAB PO SCH (09:00)
[2019-12-07] MEDS ORDERED: ASPIRIN 325 MG TAB PO SCH (09:00)
[2019-12-07] MEDS ORDERED: ASPIRIN 81 MG PO SCH (09:00)
--- NOTE | 2019-12-07 10:58 | ECHOF ---
Referral Reason:Dyspnea MEASUREMENTS -------- HEIGHT: 180.3 cm WEIGHT: 73.0 kg BP: 132/57 RVIDd: 3.6 cm (< 3.3) IVSd: 1.5 cm (0.6 - 1.1) LVIDd: 3.8 cm (3.9 - 5.3) LVPWd: 1.5 cm (0.6 - 1.1) IVSs: 1.9 cm LVIDs: 2.7 cm LVPWs: 2.1 cm LAESV Index (A-L): 25.78 ml/m Ao Diam: 3.2 cm (2.0 - 3.7) AV Cusp: 1.2 cm (1.5 - 2.6) MV EXCURSION: 15.944 mm (> 18.000) MV EF SLOPE: 45 mm/s (70 - 150) EPSS: 0.6 cm MV E Jose Luis: 0.82 m/s MV DecT: 393 ms MV A Jose Luis: 1.29 m/s MV E/A Ratio: 0.64 AV maxP.59 mmHg AV meanP.01 mmHg RAP: 5.00 mmHg RVSP: 16.89 mmHg FINDINGS -------- Resting bradycardia (HR<60bpm). This was a technically adequate study. The left ventricular size is normal. There is moderate concentric left ventricular hypertrophy. O verall left ventricular systolic function is normal with, an EF between 55 - 60 %. The diastolic fi lling pattern is normal for the age of the patient 16.48. The right ventricle is mildly enlarged. Normal LA size by volume 22+/-6 ml/m2. The right atrial size is normal. Interatrial and interventricular septum intact. There is no evidence of aortic regurgitation. There is mild aortic stenosis present. Peak/mean gr adient across the Aortic Valve is 28.59mmHg / 15.01mmHg. No mitral regurgitation. Mild tricuspid regurgitation present. There is no evidence of pulmonary hypertension. The right v entricular systolic pressure, as measured by Doppler, is 16.89mmHg. There is no pulmonic regurgitation present. The aortic root size is normal. IVC Not well visulized. There is no pericardial effusion. CONCLUSIONS -------- 1. Resting bradycardia (HR<60bpm). 2. This was a technically adequate study. 3. The left ventricular size is normal. 4. There is moderate concentric left ventricular hypertrophy. 5. Overall left ventricular systolic function is normal with, an EF between 55 - 60 %. 6. The diastolic filling pattern is normal for the age of the patient 16.48 7. The right ventricle is mildly enlarged. 8. Normal LA size by volume 22+/-6 ml/m2. 9. The right atrial size is normal. 10. Interatrial and interventricular septum intact. 11. There is no evidence of aortic regurgitation. 12. There is mild aortic stenosis present. 13. Peak/mean gradient across the Aortic Valve is 28.59mmHg / 15.01mmHg. 14. No mitral regurgitation. 15. Mild tricuspid regurgitation present. 16. There is no evidence of pulmonary hypertension. 17. The right ventricular systolic pressure, as measured by Doppler, is 16.89mmHg. 18. There is no pulmonic regurgitation present. 19. The aortic root size is normal. 20. IVC Not well visulized. 21. There is no pericardial effusion. [employer] ARTIST: Jolie Cosme RDCS
--- NOTE | 2019-12-07 11:08 | P.CRDCN ---
History of Present Illness History of present illness: HISTORY OF PRESENTING ILLNESS This is a pleasant 84-year-old male past medical history significant for coronary artery disease status post PCI of the LAD and RCA, hypertension and dyslipidemia. He follows in the office with Dr. Myers. We have been asked to see in consultation for bradycardia and shortness of breath. He presents to the hospital with a one to two-week history of increasing exertional dyspnea. His PCP recently initiated him on Imdur and Lasix in an attempt to improve his symptoms however he has achieved no relief. He denies any associated chest pain, dizziness or palpitations. He states at rest his breathing is stable however if he does minimal activity he becomes very short of breath and has to sit down. Most recent cardiac catheterization performed March 2019 revealed heavily calcified coronary arteries, critical stenosis in the mid LAD, mild to moderate disease in left circumflex and right coronary artery with no evidence of significant restenosis with mildly impaired LV systolic function. He underwent successful angioplasty and stenting of the mid LAD at that time and is maintained on dual antiplatelet therapy. DIAGNOSTICS EKG reveals sinus bradycardia with first degree AV block. Chest xray negative for an acute cardiopulmonary process. Laboratory reviewed, CBC unremarkable, d-dimer 0.87, sodium 136, potassium 4.6, creatinine 0.94 with repeat today 1.02, magnesium 1.9, troponin 0.014, 0.018, 0.046, NT pro BNP 420, LDL 60, HDL 52. Current cardiac medications include lisinopril 10 mg BID, isosorbide mononitrate 20 mg BID, plavix 75 mg daily, atorvastatin 80 mg daily, aspirin 81 mg daily. REVIEW OF SYSTEMS At the time of my exam: CONSTITUTIONAL: Denies fever or chills. CARDIOVASCULAR: Denies chest pain, shortness of breath, orthopnea, PND or palpitations. RESPIRATORY: Denies cough. GASTROINTESTINAL: Denies abdominal pain, diarrhea, constipation, nausea or vomiting. MUSCULOSKELETAL: Denies myalgias. NEUROLOGIC: Denies numbness, tingling or weakness. ENDOCRINE: Denies fatigue, weight change, polydipsia or polyurina. GENITOURINARY: Denies burning, hematuria or urgency with micturation. HEMATOLOGIC: Denies history of anemia or bleeding. PHYSICAL EXAMINATION Blood pressure 177/75 heart rate 83 afebrile and maintaining oxygen saturation on room air. CONSTITUTIONAL: No apparent distress. HEENT: Head is normocephalic. Pupils are equal, round. Sclerae anicteric. Mucous membranes of the mouth are moist. No JVD. No carotid bruit. CHEST EXAMINATION: Lungs are clear to auscultation. No chest wall tenderness is noted on palpation or with deep breathing. HEART EXAMINATION: Regular rate and rhythm. S1, S2 heard. No murmurs, gallops or rub. ABDOMEN: Soft, nontender. Positive bowel sounds. EXTREMITIES: 2+ peripheral pulses, no lower extremity edema and no calf tenderness. NEUROLOGIC EXAMINATION: Patient is awake, alert and oriented x3. ASSESSMENT Non-ST elevated myocardial infarction Coronary artery disease s/p PCI maintained on dual anti-platelet therapy Hypertension Dyslipidemia PLAN Recommend proceeding with cardiac catheterization to assess for progression of underlying CAD. I have discussed the risks, benefits and alternative therapies for the above- mentioned procedure and for both sedation/analgesia as well as necessary blood product administration, if indicated, as they pertain to this patient. The patient has indicated understanding and acceptance of the risks and procedures discussed. Further recommendations to follow based on clinical course. Thank you kindly for this consultation. Nurse Practitioner note has been reviewed, I agree with a documented findings and plan of care. Patient was seen and examined. 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 Smoking Status: Former smoker Past Alcohol Use History: None Reported Additional Past Alcohol Use History / Comment(s): QUIT SMOKING IN 1989, SMOKED SINCE AGE 18 (1952) SMOKED 1 PPD Past Drug Use History: None Reported - Past Family History Father Family Medical History: Myocardial Infarction ([place]) Additional Family Medical History / Comment(s): . Medications and Allergies Home Medications Medication Instructions Recorded Confirmed Type Isosorbide Mononitrate [Ismo] 20 mg PO BID 03/25/14 03/16/19 History Aspirin 81 mg PO DAILY 01/07/15 03/16/19 History Atorvastatin Calcium [Lipitor] 80 mg PO HS 08/12/18 03/16/19 History Finasteride [Proscar] 5 mg PO HS 08/12/18 03/16/19 History Clopidogrel [Plavix] 75 mg PO DAILY #90 tab 03/17/19 Rx Lisinopril [Zestril] 10 mg PO BID #180 tab 03/17/19 Rx Nitroglycerin Sl Tabs [Nitrostat] 0.4 mg SUBLINGUAL Q5M PRN #25 tab 03/17/19 Rx Allergies Allergy/AdvReac Type Severity Reaction Status Date / Time adhesive dressings Allergy pulls skin Uncoded 12/06/19 14:31 off Physical Exam Vitals: Vital Signs Temp Pulse Pulse Resp BP BP Pulse Ox 12/07/19 04:00 97.8 F 50 L 20 132/57 97 12/07/19 03:45 50 L 20 12/07/19 00:00 52 L 20 12/06/19 23:37 98.3 F 52 L 20 146/68 95 12/06/19 20:00 52 L 20 12/06/19 18:06 98.0 F 47 L 24 148/67 100 12/06/19 18:03 47 L 24 148/67 100 12/06/19 15:04 24 12/06/19 14:28 98.0 F 54 L 18 140/59 98 Intake and Output 12/06/19 12/07/19 12/07/19 22:59 06:59 14:59 Intake Total 200 Balance 200 Intake: Oral 200 Other: # Voids 1 Weight 48.534 kg 73.2 kg Results 12/06/19 14:48 12/07/19 02:45 Cardiac Enzymes 12/06/19 12/06/19 12/06/19 Range/Units 14:48 14:48 21:54 AST 31 (17-59) U/L Troponin I 0.014 0.018 (0.000-0.034) ng/mL 12/07/19 Range/Units 02:45 AST (17-59) U/L Troponin I 0.043 H* (0.000-0.034) ng/mL Coagulation 12/06/19 Range/Units 14:48 PT 10.3 (9.0-12.0) sec APTT 22.3 (22.0-30.0) sec Lipids 12/07/19 Range/Units 02:45 Triglycerides 71 (<150) mg/dL Cholesterol 126 (<200) mg/dL HDL Cholesterol 52 (40-60) mg/dL CBC 12/06/19 Range/Units 14:48 WBC 8.6 (3.8-10.6) k/uL RBC 4.44 (4.30-5.90) m/uL Hgb 13.8 (13.0-17.5) gm/dL Hct 42.0 (39.0-53.0) % Plt Count 194 (150-450) k/uL Comprehensive Metabolic Panel 12/06/19 Range/Units 14:48 Sodium 136 L (137-145) mmol/L Potassium 4.6 (3.5-5.1) mmol/L Chloride 106 (98-107) mmol/L Carbon Dioxide 22 (22-30) mmol/L BUN 22 H (9-20) mg/dL Creatinine 0.94 (0.66-1.25) mg/dL Glucose 118 H (74-99) mg/dL Calcium 9.3 (8.4-10.2) mg/dL AST 31 (17-59) U/L ALT 26 (4-49) U/L Alkaline Phosphatase 73 (38-126) U/L Total Protein 6.0 L (6.3-8.2) g/dL Albumin 3.6 (3.5-5.0) g/dL Current Medications Generic Name Dose Route Start Last Admin Trade Name Freq PRN Reason Stop Dose Admin Alprazolam 0.25 mg 12/07/19 08:48 Xanax PO Q6HR PRN Mild Anxiety Alprazolam 0.5 mg 12/07/19 08:48 Xanax PO Q6HR PRN Moderate Anxiety Aspirin 325 mg 12/07/19 08:48 Aspirin PO 12/07/19 08:49 ONCE STA Atorvastatin Calcium 80 mg 12/07/19 21:00 Lipitor PO HS FATMATA Clopidogrel Bisulfate 75 mg 12/07/19 09:00 Plavix PO DAILY FATMATA Sodium Chloride 1,000 ml/ IV 1,000 mls @ 73.2 mls/hr 12/07/19 08:48 Solution IV 12/07/19 22:27 .[id number] ONE 1 ML/KG/HR Isosorbide Mononitrate 20 mg 12/07/19 09:00 Ismo PO 0900,1600 FATMATA Lisinopril 10 mg 12/07/19 09:00 Zestril PO BID FATMATA Nitroglycerin 0.4 mg 12/06/19 17:26 Nitrostat SUBLINGUAL Q5M PRN Chest Pain Intake and Output 12/06/19 12/07/19 12/07/19 22:59 06:59 14:59 Intake Total 200 Balance 200 Intake: Oral 200 Other: # Voids 1 Weight 48.534 kg 73.2 kg 12/06/19 14:48 12/06/19 14:48
[2019-12-07] MEDS: ISOSORBIDE MONONITRATE 20 MG TAB PO SCH ×2 (11:30→17:55)
[2019-12-07] MEDS: CLOPIDOGREL 75 MG TAB PO SCH (11:30)
[2019-12-07] MEDS ORDERED: IV FLUID CONTINUATION 1,000 ML IV ONE (11:50)
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
[2019-12-07] MEDS ORDERED: fentaNYL (PF) 50 MCG/ML 2 ML AMP IV ONE (12:28)
[2019-12-07] MEDS ORDERED: LIDOCAINE 1% INJ 10MG/ML (20 ML MDV) SQ ONE (12:30)
[2019-12-07] MEDS ORDERED: VERAPAMIL SYRINGE (5 MG/10 ML) INTRAARTER ONE ×2 (12:33→12:36)
[2019-12-07] MEDS ORDERED: MIDAZOLAM 2 MG/2 ML VIAL IV ONE (12:35)
[2019-12-07] MEDS ORDERED: HEPARIN SODIUM 1,000 UN/ML (10ML VL) IV ONE (12:43)
[2019-12-07] MEDS ORDERED: IOPAMIDOL-370 125ML BTL INJ ONE ×2 (12:44)
[2019-12-07] MEDS ORDERED: RX INFO: IV CONTRAST WAS GIVEN 1 EACH MISC MISCELLANE PRN (13:08)
[2019-12-07] MEDS ORDERED: SODIUM CHLORIDE 0.9% 1,000 ML IV SCH (13:15)
[2019-12-07] MEDS ORDERED: FUROSEMIDE 40 MG TAB PO PRN (15:03)
--- NOTE | 2019-12-07 16:58 | LTR ---
DATE OF SERVICE: 12/07/2019 RE: Ruiz Bright Dear Dr. Michel; I had the pleasure to perform cardiac catheterization on Mr. Bright at [facility] on December 07, 2019 and a fully copy of the procedure note will be forwarded to you. In brief, he he was found to have calcified coronary artery with [id number] triple-vessel coronary artery disease and no evidence of restenosis in the stented segment. At this time, I will recommend continued medical therapy with the aggressive coronary risk modification being initiated and thank you again for allowing me to participate in this patient's care. Please feel free to call for any questions. Sincerely yours, Hamilton Myers M.D. TANIA / IRASEMA: [id number] /
--- NOTE | 2019-12-07 16:58 | CC ---
CARDIAC CATHETERIZATION REPORT Mr. Bright is an 84-year-old male with a known history of coronary artery disease, history of hypertension who presented to the hospital with symptoms of worsening dyspnea on exertion with minimal physical activity. His lab data revealed minimal change on one of the sample of the troponin. Because of that, recommendation made regarding cardiac catheterization. The procedures, risks, and complication were discussed with the patient who is in full understanding and agreement. PROCEDURE: Patient was brought to labor training manager in a fasting semi-sedated state after receiving fentanyl and Benadryl and achieving moderate conscious sedated state. Using Xylocaine anesthesia and Seldinger technique, a 6-Indonesian sheath was introduced in the right radial artery. Selective right and left coronary angiography performed using 5-Indonesian 3.5 bend right Ashley catheter and a 6-Indonesian EBU 3.75 guiding catheter. After obtaining images of the coronary arteries including hemiaxial views were obtained. Following that, 5-Indonesian tight pigtail catheter was introduced in the left ventricle and a 30-degree LOYA view of the left ventricle was obtained. Following that, catheter and sheath were removed. Hemostasis was obtained with deployment of a TR band. There was no immediate complication. Patient is returned to his room in stable condition. Of note, the patient received 4000 units of intravenous heparin as well as intra- arterial verapamil. FINDINGS: FLUOROSCOPY: There was significant calcification involving the coronary arteries. LEFT MAIN: This is a large-sized vessel, trifurcating into left circumflex, left anterior descending artery and ramus intermedius. Left main coronary artery has no evidence of high-grade stenosis. LEFT ANTERIOR DESCENDING ARTERY: This is a large-sized vessel reaching toward the apex with a wraparound apex segment, heavily calcified proximally at the proximal segment of the left anterior descending artery, has a 40% to 50% plaque. The stented segment beyond that is widely open with no evidence of in-stent restenosis. The distal vessel has no high-grade stenosis. RAMUS INTERMEDIUS: This is a large-sized vessel, reaching to the apical lateral wall. The ramus intermedius has no evidence of high-grade stenosis. LEFT CIRCUMFLEX: This is a nondominant vessel, moderate in caliber, tortuous, giving rise to one obtuse marginal branch. It has mild intimal disease of 20% to 30% without any evidence of high-grade stenosis. RIGHT CORONARY ARTERY: This is a large dominant vessel, bifurcating distally into PDA, posterolateral segment and branches, heavily calcified throughout its course. The stented segment is patent. There is evidence of diffuse intimal disease in the mid segment of 30%-50% 40% without any evidence of high-grade stenosis. LEFT VENTRICULOGRAM: Was performed in the 30-degree LOYA view and revealed inferobasal hypokinesis ejection fraction is estimated at 50% there was no evidence of significant mitral regurgitation. HEMODYNAMICS: There was no gradient across the aortic valve the left ventricle end-diastolic pressure constantino, left ventricular end-diastolic pressure was 10 mmHg. CONCLUSION: 1. Calcified coronary artery. 2. Patent stent in the LAD and in the right coronary artery. 3. Ghet-iq-dpevitku triple-vessel disease. 4. Mildly impaired left ventricular systolic function. RECOMMENDATION: In view of finding anatomy, I recommend continue medical therapy with the aggressive coronary risk modifications being initiated. Those findings and recommendation were discussed with the patient and he is full understanding and agreement. Duration of procedure 25 minutes. MMBRIAN / CRISTOBALN: [id number] /
[2019-12-07] MEDS ORDERED: FINASTERIDE 5 MG TAB PO SCH (21:00)
[2019-12-07] MEDS ORDERED: ATORVASTATIN 80 MG TAB PO SCH (21:00)
[2019-12-07] MEDS: PROPRANOLOL 10 MG TAB PO SCH (22:01)
[2019-12-08 07:24] LABS: African American GFR (CKD) >90 (>60 ml/min/1.73 sqM); Blood Urea Nitrogen 18 mg/dL (9-20); Calcium 8.8 mg/dL (8.4-10.2); Carbon Dioxide 23 mmol/L (22-30); Chloride 109 mmol/L (98-107); Glucose 103 mg/dL (74-99); Non-African American GFR(CKD) 82 (>60 ml/min/1.73 sqM); Potassium 4.3 mmol/L (3.5-5.1)
[2019-12-08 07:35] LABS: Anion Gap 5 mmol/L; Sodium 137 mmol/L (137-145)
[2019-12-08 08:05] VITALS: TEMP 98
--- NOTE | 2019-12-08 08:06 | P.PN ---
Subjective Progress Note Date: 12/08/19 Principal diagnosis: Coronary artery disease This is a very pleasant 84-year-old gentleman with coronary artery disease as well as hypertension and dyslipidemia who was admitted to the hospital with worsening dyspnea on exertion. He was found to have mildly abnormal troponin. Because of that a heart catheterization was advised. The patient underwent a heart catheterization by Dr. Myers and that revealed [id number] triple- vessel CAD. The patient was kept overnight. He is asymptomatic this morning. The right and left radial sites are soft and nontender with good pulses. The patient is going to be discharged home later on today Objective - Vital Signs Vital signs: Vital Signs Temp 97.6 F 12/08/19 04:00 Pulse 54 L 12/08/19 04:00 Resp 18 12/08/19 04:00 BP 132/71 12/08/19 04:00 Pulse Ox 97 12/08/19 04:00 Intake & Output 12/07/19 12/08/19 12/08/19 18:59 06:59 18:59 Intake Total 200 Balance 200 Intake: IV 100 Oral 100 Other: Voiding Method Toilet Toilet # Voids 1 3 - Constitutional General appearance: Present: no acute distress - Respiratory Respiratory: bilateral: CTA - Cardiovascular Rhythm: regular Heart sounds: normal: S1, S2 - Labs CBC & Chem 7: 12/06/19 14:48 12/08/19 06:17 Labs: Abnormal Lab Results - Last 24 Hours (Table) 12/08/19 Range/Units 06:17 Chloride 109 H (98-107) mmol/L Glucose 103 H (74-99) mg/dL Assessment and Plan Assessment: Assessment #1 coronary artery disease #2 hypertension #3 dyslipidemia Plan #1 continue the current medical regimen #2 the patient can be discharged home
[2019-12-08] MEDS: PROPRANOLOL 10 MG TAB PO SCH (08:39)
[2019-12-08] MEDS: CLOPIDOGREL 75 MG TAB PO SCH (08:39)
[2019-12-08] MEDS: ISOSORBIDE MONONITRATE 20 MG TAB PO SCH (08:39)
[2019-12-08] MEDS ORDERED: ASPIRIN 81 MG PO SCH (09:00)
[2019-12-08] MEDS ORDERED: TAMSULOSIN 0.4 MG CAP.ER.24H PO SCH (09:00)
[2019-12-08] MEDS ORDERED: LISINOPRIL 10 MG TAB PO SCH (09:00)
[2019-12-08 10:48] VITALS: BP 129/60; PULSE 52; RESP 20
--- NOTE | 2019-12-08 11:13 | P.DS ---
Providers Date of admission: 12/07/19 12:12 Expected date of discharge: 12/08/19 Attending physician: Nayeli Michel Consults: 12/06/19 17:27 Consult Physician Urgent Consulting Provider: [facility] Reason/Comments: Bradycardia, dyspnea Do you want consulting provider notified?: Yes Primary care physician: Nayeli Michel Hospital Course: This is an 84-year-old male patient of Dr. Michel and Dr. Myers with a past medical history coronary artery disease status post PCI of the LAD and RCA, history of hypertension, hyperlipidemia BPH, neck and back surgeries for degenerative arthritis. Patient presented to the emergency department due to bradycardia and shortness of breath. He has had a two-week history of increasing exertional dyspnea. He has been recently started on Imdur and Lasix but these did not help. EKG was sinus bradycardia with a first-degree AV block. Chest x-ray showed no acute cardiopulmonary process. CBC was unremarkable, d-dimer 0.87, sodium 136, potassium 4.6, creatinine 0.94 with repeat today 1.02, magnesium 1.9, troponin 0.014, 0.018, 0.043, Pro BNP 420, LDL 60, HDL 52. The patient was initially placed on the observation unit. He has been seen by cardiology and diagnosed with a non-ST elevated myocardial infarction and is scheduled for heart catheterization. Echocardiogram reveals EF of 55-60% with moderate concentric left ventricular hypertrophy, mild aortic stenosis, mild tricuspid regurgitation, no pulmonary hypertension. Discharge Diagnoses: 1. Non-ST elevated myocardial infarction. 2. History of CAD with prior stenting. 3. Hypertension. 4. Hyperlipidemia. 5. BPH. Plan - Discharge Summary Discharge Rx Participant: No New Discharge Prescriptions: No Action Isosorbide Mononitrate [Ismo] 20 mg PO BID Aspirin 81 mg PO DAILY Atorvastatin Calcium [Lipitor] 80 mg PO HS Finasteride [Proscar] 5 mg PO HS Furosemide [Lasix] 40 mg PO MOWEFR PRN PRN Reason: Edema Tamsulosin [Flomax] 0.4 mg PO DAILY Propranolol [Inderal] 10 mg PO BID Lisinopril [Zestril] 10 mg PO DAILY Discharge Medication List Isosorbide Mononitrate [Ismo] 20 mg PO BID 03/25/14 [History] Aspirin 81 mg PO DAILY 01/07/15 [History] Atorvastatin Calcium [Lipitor] 80 mg PO HS 08/12/18 [History] Finasteride [Proscar] 5 mg PO HS 08/12/18 [History] Furosemide [Lasix] 40 mg PO MOWEFR PRN 12/07/19 [History] Lisinopril [Zestril] 10 mg PO DAILY 12/07/19 [History] Propranolol [Inderal] 10 mg PO BID 12/07/19 [History] Tamsulosin [Flomax] 0.4 mg PO DAILY 12/07/19 [History] Follow up Appointment(s)/Referral(s): Hamilton Myers MD [STAFF PHYSICIAN] - 1 Week Nayeli Michel MD [Primary Care Provider] - 1-2 days Patient Instructions/Handouts: *[facility] - After Heart Catheterization - Broker In Charge Instructions
== END 2019-12-08 11:56 | disposition home or self-care (01) | DRG 282 ==
LOC: EC 14:27 → 1SOBS 17:31 → OBSVTOIN 12-07 12:12
PROVIDERS: ADMIT Internal Medicine; ATTEND Internal Medicine
PROC: B2111ZZ Fluoroscopy of Multiple Coronary Arteries using Low Osmolar Contrast (ICD-10-PCS; principal; 2019-12-07 11:45)
DX: I21.4 Non-ST elevation (NSTEMI) myocardial infarction (principal); I08.2 Rheumatic disorders of both aortic and tricuspid valves; I11.9 Hypertensive heart disease without heart failure; E78.5 Hyperlipidemia, unspecified; I44.0 Atrioventricular block, first degree; I25.10 Atherosclerotic heart disease of native coronary artery without angina pectoris; N40.0 Benign prostatic hyperplasia without lower urinary tract symptoms; I25.2 Old myocardial infarction; R00.1 Bradycardia, unspecified; M19.90 Unspecified osteoarthritis, unspecified site; Z79.82 Long term (current) use of aspirin; Z79.899 Other long term (current) drug therapy; Z87.891 Personal history of nicotine dependence; Z95.5 Presence of coronary angioplasty implant and graft; Z87.01 Personal history of pneumonia (recurrent); Z98.890 Other specified postprocedural states; Z98.42 Cataract extraction status, left eye; Z98.41 Cataract extraction status, right eye; Z82.49 Family history of ischemic heart disease and other diseases of the circulatory system
CPT/HCPCS: 36415; 71046; 71275; 80048; 80053; 80061; 82565; 83605; 83735; 83880; 84484; 85025; 85379; 85610; 85730; 93005; 93306; 93458; 99285

== ENCOUNTER → 2020-01-30 | Outpatient (CLI) | payer MEDICARE, OTHER ==
--- NOTE | 2020-01-30 14:11 | CT ---
EXAMINATION TYPE: CT chest w con DATE OF EXAM: 01/30/2020 COMPARISON: 08/12/2018 HISTORY: Dyspnea on exertion CT DLP: 473 mGycm Automated exposure control for dose reduction was used. CONTRAST: CT scan of the chest is performed with IV Contrast, patient injected with 100 ml mL of Isovue 300. FINDINGS: LUNGS: There is background fairly moderate emphysematous change noted most prominent in lung apices. There is patchy bibasilar linear scarring and/or atelectasis in both lower lobes. No pleural effusion or pneumothorax is evident bilaterally. No suspicious parenchymal nodules or masses are present. Pul monary septal thickening. MEDIASTINUM: There is satisfactory enhancement of the pulmonary artery and its branches, there is no CT evidence for pulmonary embolism. There are no greater than 1 cm hilar or mediastinal lymph nodes. There is dense coronary artery calcification. No significant pericardial fluid noted. There is modera te mixed plaque in the thoracic aorta. OTHER: Interpedicular rods and screws begin in the mid thoracic spine extending into the lumbar spin e. Bilateral gynecomastia is more prominent on current study versus prior. Tiny gallstone noted and t here is a accessory spleen. Hypertrophic and degenerative changes of the spine. IMPRESSION: 1. COPD with subsegmental consolidation and pleural based thickening posteriorly with some nodularity likely benign and related to atelectasis. Correlate for interstitial chronic lung disease. 2. Dense coronary artery calcification. 3. Cholelithiasis
== END | disposition home or self-care (01) ==
LOC: RADCTMAIN 13:10
PROVIDERS: ATTEND Internal Medicine
DX: J44.9 Chronic obstructive pulmonary disease, unspecified (principal); I25.10 Atherosclerotic heart disease of native coronary artery without angina pectoris
CPT/HCPCS: 71260; Q9967

== ENCOUNTER 2020-09-04 15:53 | Observation (INO) | payer MEDICARE, OTHER ==
[2020-09-04] MEDS ORDERED: NITROGLYCERIN OINT 1 INCH/GM PACKET TOPICAL STA (16:11)
[2020-09-04] MEDS ORDERED: ASPIRIN 81 MG PO STA (16:11)
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
--- NOTE | 2020-09-04 16:47 | XR ---
EXAMINATION TYPE: XR chest 2V DATE OF EXAM: 09/04/2020 COMPARISON: 12/06/2019. HISTORY: Chest pain and shortness of breath. TECHNIQUE: Frontal and lateral views of the chest are obtained. FINDINGS: There is no focal air space opacity, pleural effusion, or pneumothorax seen. The cardiac silhouette size is within normal limits. The osseous structures are stable. Cervical and thoracolum bar spine fusion seen. IMPRESSION: No acute cardiopulmonary process.
[2020-09-04 16:48] LABS: Basophils # (A) 0.1 k/uL (0-0.2); Basophils % (A) 1 %; Eosinophils # (A) 0.3 k/uL (0-0.7); Eosinophils % (A) 3 %; HCT 42.2 % (39.0-53.0); HGB 14.6 gm/dL (13.0-17.5); Lymphocytes # (A) 3.1 k/uL (1.0-4.8); Lymphocytes % (A) 31 %; MCH 32.9 pg (25.0-35.0); MCHC 34.7 g/dL (31.0-37.0); Mean Platelet Volume 6.9; Monocytes # (A) 0.5 k/uL (0-1.0); Monocytes % (A) 5 %; Neutrophils % (A) 60 %; Platelet Count 210 k/uL (150-450); RBC 4.44 m/uL (4.30-5.90); RDW 12.7 % (11.5-15.5)
[2020-09-04 16:59] LABS: ALT 32 U/L (4-49); AST 27 U/L (17-59); African American GFR (CKD) >90 (>60 ml/min/1.73 sqM); Albumin 3.7 g/dL (3.5-5.0); Alkaline Phosphatase 71 U/L (38-126); Anion Gap 7 mmol/L; Blood Urea Nitrogen 20 mg/dL (9-20); Calcium 9.6 mg/dL (8.4-10.2); Carbon Dioxide 21 mmol/L (22-30); Chloride 109 mmol/L (98-107); Glucose 91 mg/dL (74-99); Non-African American GFR(CKD) 80 (>60 ml/min/1.73 sqM); Sodium 137 mmol/L (137-145); Total Bilirubin 0.9 mg/dL (0.2-1.3); Total Protein 6.1 g/dL (6.3-8.2)
[2020-09-04 17:00] LABS: Potassium 4.4 mmol/L (3.5-5.1)
[2020-09-04 17:16] LABS: Partial Thromboplastin Time 23.1 sec (22.0-30.0); Prothrombin Time 10.6 sec (9.0-12.0)
[2020-09-04] MEDS ORDERED: HEPARIN SODIUM,PORCINE 5,000 UNIT/ML 1 ML VIAL IV ONE (17:49)
[2020-09-04] MEDS ORDERED: NITROGLYCERIN SL TABS 0.4 MG TAB SUBLINGUAL PRN (17:50)
[2020-09-04] MEDS ORDERED: HEPARIN SOD,PORK IN 0.45% NACL 25,000 UNIT in 0.45% NACL 1 250ML.BAG IV SCH (18:00)
[2020-09-04] MEDS ORDERED: FUROSEMIDE 40 MG TAB PO PRN (19:14)
[2020-09-04] MEDS ORDERED: POTASSIUM CHLORIDE ER 20 MEQ TAB.ER PO PRN (19:14)
[2020-09-04] MEDS: ISOSORBIDE MONONITRATE 20 MG TAB PO SCH (20:14)
[2020-09-04] MEDS ORDERED: FINASTERIDE 5 MG TAB PO SCH (21:00)
[2020-09-04] MEDS ORDERED: ATORVASTATIN 80 MG TAB PO SCH (21:00)
[2020-09-05] MEDS ORDERED: PANTOPRAZOLE 40 MG TABLET PO SCH (07:30)
[2020-09-05 07:52] VITALS: TEMP 98.1
[2020-09-05] MEDS ORDERED: lisinopriL 10 MG TAB PO SCH (09:00)
[2020-09-05] MEDS ORDERED: ASPIRIN 81 MG PO SCH (09:00)
[2020-09-05] MEDS ORDERED: ASPIRIN 325 MG TAB PO SCH (09:00)
[2020-09-05] MEDS ORDERED: TAMSULOSIN 0.4 MG CAP.ER.24H PO SCH (09:00)
--- NOTE | 2020-09-05 09:00 | P.HPIM ---
<Nayeli Michel - Last Filed: 09/05/20 12:58> History of Present Illness H&P Date: 09/05/20 Chief Complaint: Chest pain/shortness breath This is an 85-year-old male patient of Dr. clark and Dr. Myers with a past medical history coronary artery disease status post PCI of the LAD and RCA, history of hypertension, hyperlipidemia BPH, neck and back surgeries for degenerative arthritis, patient was recently hospitalized at [facility] in November 2019 after he was admitted for increased chest pain as well as shortness of breath associated with a bradycardia at that time his troponin was mildly elevated he was seen in consultation by cardiology underwent left heart catheterization that time that showed heavily calcified troponin vessel disease with a patent stented segment of the LAD and RCA as well as minimal impaired LV function with ejection fraction 50%, was recommended for the patient in time for aggressive risk factor modification and he was placed on dual antibiotic therapy in the form of baby aspirin and Plavix however the patient stopped his Plavix on his own because of increased bruising over his body he came to the office yesterday complaining of increased shortness of breath with minimal exertion associated with chest tightness and a 12-lead EKG in my office that showed sinus bradycardia with first-degree AV block with occasional PVCs, there was Q waves in inferior leads without acute ST-T wave changes was referred to the emergency department for evaluation his labs were completely normal his troponin was negative but because of the presentation he was admitted to the hospital he was started on baby aspirin as well as Lipitor 80 mg once every day, heparin drip, cardiology consultation. Review of Systems Constitutional: Reports weight loss, Denies anorexia, Denies chronic headaches, Denies chronic pain, Denies lethargy, Denies malaise Eyes: denies blurred vision, denies bulging eye, denies decreased vision Ears: bilateral: decreased hearing Ears, nose, mouth and throat: Denies dysphagia, Denies headache, Denies neck lump, Denies sore throat Cardiovascular: Reports chest pain, Reports decreased exercise tolerance, Reports dyspnea on exertion, Reports leg edema, Reports orthopnea, Reports paroxysmal nocturnal dyspnea, Reports shortness of breath, Denies syncope Respiratory: Reports dyspnea, Denies congestion, Denies cough with sputum, Denies home oxygen, Denies sleep apnea, Denies snoring, Denies wheezing Gastrointestinal: Reports loss of appetite, Denies abdominal pain, Denies bloating, Denies BRBPR, Denies dyspepsia, Denies heartburn, Denies hematemesis, Denies melena, Denies nausea, Denies vomiting Genitourinary: Reports nocturia, Denies dysuria Musculoskeletal: Reports atrophy, Reports gait dysfunction, Reports low back pain, Reports morning stiffness, Reports muscle cramps, Reports muscle weakness, Reports neck pain, Reports neck stiffness Musculoskeletal: bilateral: ankle swelling, absent: ankle pain, ankle stiffness, elbow pain, elbow stiffness, elbow swelling, foot pain, foot stiffness, foot swelling, hand pain, hand stiffness, hand swelling, hip pain, hip stiffness, hip swelling, knee pain, knee stiffness, knee swelling, shoulder pain, shoulder stiffness, shoulder swelling, wrist pain, wrist stiffness, wrist swelling Integumentary: Denies pruritus, Denies rash Neurological: Denies numbness, Denies weakness Psychiatric: Reports anxiety, Reports depression, Reports memory loss, Denies sadness/tearfulness, Denies sleep disturbances, Denies suicidal ideation Endocrine: Denies fatigue, Denies weight change Past Medical History Past Medical History: Hyperlipidemia, Hypertension, Myocardial Infarction ([place]), Osteoarthritis (OA), Pneumonia Additional Past Medical History / Comment(s): has some balance issue, uses cane when outside home, sinus problems, Last Myocardial Infarction Date:: 1993 History of Any Multi-Drug Resistant Organisms: None Reported Past Surgical History: Back Surgery, Heart Catheterization, Tonsillectomy Additional Past Surgical History / Comment(s): 2 Neck surgery, 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 has 1 pet dog. pt uses cane when outdoors, drives. no home care services, . pt served in [employer] from [id number]. worked for [employer] from 1962 to 1991. Smoking Status: Former smoker Past Alcohol Use History: None Reported Additional Past Alcohol Use History / Comment(s): QUIT SMOKING IN 1989, SMOKED SINCE AGE 18 (1952) SMOKED 1 PPD, past heavy etoh but quit 1986. Past Drug Use History: None Reported - Past Family History Father Family Medical History: Myocardial Infarction ([place]) (Father at age of 78 from pedestrian MVA head injury, but he had history of CAD post multiple MIs.) Additional Family Medical History / Comment(s): Several mi's, but from complications of pedestrain/mva-head injury. Mother Family Medical History: CVA/TIA (Mother at age of 80 from CVA) Daughter(s) Family Medical History: Diabetes Mellitus (Patient has 2 daughters one with diabetes mellitus type 2 hypertension hyperlipidemia and other one with multiple sclerosis.) Medications and Allergies Home Medications Medication Instructions Recorded Confirmed Type Isosorbide Mononitrate [Ismo] 20 mg PO BID 03/25/14 09/04/20 History Aspirin 81 mg PO DAILY 01/07/15 09/04/20 History Atorvastatin Calcium [Lipitor] 80 mg PO HS 08/12/18 09/04/20 History Finasteride [Proscar] 5 mg PO HS 08/12/18 09/04/20 History Furosemide [Lasix] 40 mg PO MOWEFR PRN 12/07/19 09/04/20 History Lisinopril [Zestril] 10 mg PO DAILY 12/07/19 09/04/20 History Tamsulosin [Flomax] 0.4 mg PO DAILY 12/07/19 09/04/20 History Potassium Chloride ER [K-Dur 20] 20 meq PO MOWEFR PRN 09/04/20 09/04/20 History Allergies Allergy/AdvReac Type Severity Reaction Status Date / Time adhesive dressings Allergy pulls skin Uncoded 09/04/20 17:39 off Physical Exam Vitals: Vital Signs Temp Pulse Pulse Resp BP BP Pulse Ox 09/05/20 01:21 97.9 F 58 L 16 151/62 98 09/04/20 20:30 165/86 09/04/20 19:58 97.8 F 74 18 180/70 96 09/04/20 18:00 50 L 18 136/66 99 09/04/20 17:30 51 L 18 140/74 99 09/04/20 16:30 52 L 16 159/70 98 09/04/20 15:55 97.3 F L 55 L 18 175/73 99 Intake and Output 09/04/20 09/04/2009/05/21 14:59 22:59 06:59 Intake Total 65.075 Balance 65.075 Intake: Intake, IV Titration 65.075 Amount Heparin Sod,Pork in 0.45% 65.075 NaCl 25,000 unit In 0.45 % NaCl 1 250ml.bag @ 12 UNITS/KG/HR 9.144 mls/hr IV .Q24H [facility] Rx#: [id number] Other: Voiding Method Toilet # Voids 1 Weight 76.204 kg Physical examination: HEENT: Head is atraumatic, normocephalic, pupils were equal round reactive to light and accommodation, extraocular muscle movement were intact. Mucous membra abram of the mouth are somewhat dry. Neck: Supple, no JVP, decreased carotid upstroke bilaterally, no lymphadenopathy. Chest: Decreased breath sound at bases, few rhonchi, no wheezes, no chest wall tenderness, no intercostal retractions. Heart: First heart sound is depressed, second heart sound is normal, there is systolic ejection murmur 2/6 okay to the left sternal border. Abdomen: Soft, nontender, nondistended, positive bowel sounds, no hepatosplenomegaly. Extremities: There is trace edema, no calf tenderness dorsalis pedis +1 bilaterally. Neurologic examination: Patient is awake alert and oriented 3, cranial nerves III-12 appear to be grossly intact, muscle power 4 out of 5 in upper extremities and 4 out of 5 in bilateral lower extremities, deep tendon reflexes were normal. Results CBC & Chem 7: 09/04/20 16:27 09/04/20 16:27 Labs: Abnormal Lab Results - Last 24 Hours (Table) 09/04/20 09/04/20 09/05/20 Range/Units 16:27 22:26 00:29 APTT 85.3 H (22.0-30.0) sec Chloride 109 H (98-107) mmol/L Carbon Dioxide 21 L (22-30) mmol/L Troponin I 0.061 H* (0.000-0.034) ng/mL Total Protein 6.1 L (6.3-8.2) g/dL Thrombosis Risk Factor Assmnt - DVT/VTE Prophylaxis DVT/VTE Prophylaxis: Pharmacologic Prophylaxis ordered, Mechanical Prophylaxis ordered - Choose All That Apply Each Factor Represents 1 point: Acute [place] Each Risk Factor Represents 3 Points: Age 75 years or older Thrombosis Risk Factor Assessment Total Risk Factor Score: 4 Thrombosis Risk Factor Assessment Level: Moderate Risk Assessment and Plan Assessment: Assessment and plan: 1. Effort angina with significant dyspnea with minimal exertion likely related to chronic CAD and chronic diastolic heart failure rule out unstable angina. Start the patient on aspirin 81 mg once every day, heparin drip, Lipitor 80 mg once every day, isosorbide 20 mg orally twice every day, she has had a heart catheterization in November 2019 that showed calcified triple-vessel disease with patent stent to the LAD and RCA with minimal decrease in LV function at 50%, patient has been on maximum medical therapy we will continue lisinopril 10 mg orally once every day, may add Ranexa 500 mg orally twice every day, cardiology consultation. 2. History of CAD post-PCI of the LAD and RCA. Last heart catheterization November 2019 showed stable disease. Continue aspirin 81 mg once every day, Lipitor 80 mg once every day, lisinopril 10 mg every day, isosorbide 20 mg orally twice every day, consider adding Ranexa 500 mg orally twice every day. 3. Hypertension and hypertensive cardiovascular disease. Continue lisinopril 10 mg orally once every day. 4. Sinus bradycardia with significant first-degree AV block. Monitor the patient overnight to rule out any pauses doubt he needs any pacemaker. 5. Hyperlipidemia. Continue Lipitor 80 mg once every day, keep LDL cholesterol 55-70. 6. Enlarged prostate continue Flomax 0.4 mg once every day. 7. 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 Continue with physical therapy as needed. 8. Chronic diastolic heart failure. Continue patient on lisinopril 10 mg orally once every day, continue with Lasix 40 mg orally once every day Tuesday along with potassium supplements. 9. DVT prophylaxis. Currently on heparin drip and bilateral knee-high JENNIFER hose. 10. GI process. Continue Protonix 40 mg orally once every day. 11. Admitted to inpatient. Estimated length of stay 2 midnights 12. Patient is full code. <Ingrid Benitez A - Last Filed: 09/17/20 14:47> History of Present Illness History and physical and discharge summary in 1 document. Patient was seen by cardiology with no plan for stress test or heart catheterization at this time. Patient was cleared for discharge by cardiology. Echocardiogram reveals EF of 55-60%, mild aortic stenosis, trace mitral regurgitation, trace tricuspid regurgitation. Patient was discharged home on September 05. No change in home medications. Results CBC & Chem 7: 09/05/20 05:05 09/05/20 05:05
[2020-09-05] MEDS: ISOSORBIDE MONONITRATE 20 MG TAB PO SCH (09:12)
[2020-09-05 09:33] LABS: Basophils # (A) 0.07 X 10*3/uL (0.00-0.10); Basophils % (A) 0.7 %; Eosinophils # (A) 0.25 X 10*3/uL (0.04-0.35); Eosinophils % (A) 2.5 %; HCT 38.3 % (39.6-50.0); HGB 12.6 g/dL (13.0-17.0); Lymphocytes # (A) 3.89 X 10*3/uL (0.90-5.00); Lymphocytes % (A) 38.2 %; MCHC 32.9 g/dL (32.0-37.0); MCV 97.2 fL (80.0-97.0); Mean Platelet Volume 9.7 fL (9.5-12.2); Monocytes % (A) 6.9 %; Neutrophils # (A) 5.24 X 10*3/uL (1.80-7.70); Neutrophils % (A) 51.4 %; Platelet Count 223 X 10*3/uL (140-440); RBC 3.94 X 10*6/uL (4.40-5.60); RDW 12.8 % (11.5-14.5); WBC 10.18 X 10*3/uL (4.50-10.00)
[2020-09-05 09:42] LABS: ALT 30 U/L (10-49); AST 26 U/L (14-35); African American GFR (CKD) 91.2 (60.0-200.0); Alkaline Phosphatase 66 U/L (41-126); BUN/Creat Ratio 24.44 Ratio (12.00-20.00); Calcium 8.9 mg/dL (8.7-10.3); Carbon Dioxide 26.5 mmol/L (21.6-31.8); Chloride 110 mmol/L (96-109); Cholesterol 115 mg/dL (0-200); Globulin 1.2 g/dL (1.6-3.3); Glucose 101 mg/dL (70-110); Non-African American GFR(CKD) 78.7 (60.0-200.0); Potassium 4.3 mmol/L (3.5-5.5); Sodium 143 mmol/L (135-145); Total Bilirubin 0.8 mg/dL (0.2-1.2); Total Protein 4.8 g/dL (6.2-8.2); Triglycerides <50.0 mg/dL (0.0-149.0)
--- NOTE | 2020-09-05 13:00 | P.CRDCN ---
History of Present Illness Consult date: 09/05/20 History of present illness: CHIEF COMPLAINT: Shortness of breath HISTORY OF PRESENT ILLNESS: This is a 85-year-old male with a past medical history significant for coronary artery disease with previous stent placement, hyperlipidemia, hypertension, and congestive heart failure. Patient follows in the office with Dr. Myers. We have been asked to see the patient in consultation for shortness of breath. Patient states he has been feeling short of breath for the last 2 weeks. He states that he gets very winded with just w alking to the bathroom or bending over to tie his shoes which is normal for him. He reports yesterday he also began having chest pressure across his whole chest. He denied any other associated signs or symptoms. He states the discomfort lasted for approximately 2 hours. He went to see his PCP who completed an EKG and referred him to the emergency room for further evaluation. DIAGNOSTICS: EKG reveals sinus mechanism with Q waves inferiorly, unchanged from previous EKG Chest xray negative for acute process Laboratory data: WBC 10.18. Hemoglobin 12.6. Platelet count 223. D-dimer 0.83. Sodium 143. Potassium 4.3. BUN 22. Creatinine 0.9. Troponin 0.012. 0.014. 0.061. BNP 428. Current home cardiac medications include lisinopril 10 mg daily, Lasix 40 mg Tuesday as needed, Lipitor 80 mg daily, aspirin 81 mg daily, and isosorbide 20 mg twice a day Echocardiogram completed in November 2019 revealed ejection fraction 55-60% Patient underwent cardiac catheterization in November 2019 revealing patent stents to the LAD and RCA. [id number] triple-vessel disease. Medical management was recommended. REVIEW OF SYSTEMS: At the time of my exam: CONSTITUTIONAL: Denies fever or chills. HEENT: Denies blurred vision, vision changes, or eye pain. Denies hemoptysis CARDIOVASCULAR: Denies chest pain, orthopnea, PND or palpitations RESPIRATORY: No shortness of breath. GASTROINTESTINAL: Denies abdominal pain. Denies nausea or vomiting. HEMATOLOGIC: Denies bleeding disorders. GENITOURINARY: Denies any blood in urine. SKIN: Denies pruitis. Denies rash. PHYSICAL EXAM: VITAL SIGNS: Reviewed. GENERAL: Well-developed in no acute distress. HEENT: Head is normocephalic. Pupils are equal, round. Sclerae anicteric. Mucous membranes of the mouth are moist. Neck supple. No JVD or thyromegaly LUNGS: Respirations even and unlabored. Lungs essentially clear to auscultation bilaterally. HEART: Regular rate and rhythm. S1 and S2 heard. ABDOMEN: Soft. Nondistended. Nontender. EXTREMITIES: Normal range of motion. No clubbing or cyanosis. Peripheral pulses intact. Trace bilateral lower extremity edema NEUROLOGIC: Awake and alert. Oriented x 3. ASSESSMENT: Chest pain Shortness of breath Coronary artery disease with previous PCI to LAD and RCA Chronic diastolic congestive heart failure, currently euvolemic Hypertension Hyperlipidemia PLAN: Obtain 2-D echo to assess cardiac structure and function Dr. Law spoke with Dr. Myers regarding patient. No plans for stress test or cardiac cath at this time Patient may be discharged home today from a cardiac perspective and follow up outpatient Nurse practitioner note has been reviewed by physician. Signing provider agrees with the documented findings, assessment, and plan of care. Past Medical History Past Medical History: Hyperlipidemia, Hypertension, Myocardial Infarction ([place]), Osteoarthritis ([place]), Pneumonia Additional Past Medical History / Comment(s): has some balance issue, uses cane when outside home, sinus problems, Last Myocardial Infarction Date:: 1993 History of Any Multi-Drug Resistant Organisms: None Reported Past Surgical History: Back Surgery, Heart Catheterization, Tonsillectomy Additional Past Surgical History / Comment(s): 2 Neck surgery, 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 has 1 pet dog. pt uses cane when outdoors, drives. no home care services, . pt served in [employer] from [id number]. worked for [employer] from 1962 to 1991. Smoking Status: Former smoker Past Alcohol Use History: None Reported Additional Past Alcohol Use History / Comment(s): QUIT SMOKING IN 1989, SMOKED SINCE AGE 18 (1952) SMOKED 1 PPD, past heavy etoh but quit 1986. Past Drug Use History: None Reported - Past Family History Father Family Medical History: Myocardial Infarction ([place]) (Father at age of 78 from pedestrian MVA head injury, but he had history of CAD post multiple MIs.) Additional Family Medical History / Comment(s): Several mi's, but from complications of pedestrain/mva-head injury. Mother Family Medical History: CVA/TIA (Mother at age of 80 from CVA) Daughter(s) Family Medical History: Diabetes Mellitus (Patient has 2 daughters one with diabetes mellitus type 2 hypertension hyperlipidemia and other one with multiple sclerosis.) Medications and Allergies Home Medications Medication Instructions Recorded Confirmed Type Isosorbide Mononitrate [Ismo] 20 mg PO BID 03/25/14 09/04/20 History Aspirin 81 mg PO DAILY 01/07/15 09/04/20 History Atorvastatin Calcium [Lipitor] 80 mg PO HS 08/12/18 09/04/20 History Finasteride [Proscar] 5 mg PO HS 08/12/18 09/04/20 History Furosemide [Lasix] 40 mg PO MOWEFR PRN 12/07/19 09/04/20 History Lisinopril [Zestril] 10 mg PO DAILY 12/07/19 09/04/20 History Tamsulosin [Flomax] 0.4 mg PO DAILY 12/07/19 09/04/20 History Potassium Chloride ER [K-Dur 20] 20 meq PO MOWEFR PRN 09/04/20 09/04/20 History Allergies Allergy/AdvReac Type Severity Reaction Status Date / Time adhesive dressings Allergy pulls skin Uncoded 09/04/20 17:39 off Physical Exam Vitals: Vital Signs Temp Pulse Pulse Resp BP BP Pulse Ox 09/05/20 07:52 60 16 09/05/20 07:00 98.1 F 60 16 161/70 96 09/05/20 01:21 97.9 F 58 L 16 151/62 98 09/04/20 20:30 165/86 09/04/20 19:58 97.8 F 74 18 180/70 96 09/04/20 18:00 50 L 18 136/66 99 09/04/20 17:30 51 L 18 140/74 99 09/04/20 16:30 52 L 16 159/70 98 09/04/20 15:55 97.3 F L 55 L 18 175/73 99 Intake and Output 09/04/20 09/05/20 09/05/20 22:59 06:59 14:59 Intake Total 100.635 Balance 100.635 Intake: Intake, IV Titration 100.635 Amount Heparin Sod,Pork in 0.45% 100.635 NaCl 25,000 unit In 0.45 % NaCl 1 250ml.bag @ 12 UNITS/KG/HR 9.144 mls/hr IV .Q24H [facility] Rx#: [id number] Other: Voiding Method Toilet Toilet # Voids 1 2 2 Weight 76.204 kg Results 09/05/20 05:05 09/05/20 05:05 Cardiac Enzymes 09/04/20 09/04/20 09/04/20 Range/Units 16:27 16:27 19:28 AST 27 (17-59) U/L Troponin I <0.012 0.014 (0.000-0.034) ng/mL 09/04/20 09/05/20 Range/Units 22:26 05:05 AST 26 (17-59) U/L Troponin I 0.061 H* (0.000-0.034) ng/mL Coagulation 09/04/20 09/05/20 09/05/20 Range/Units 16:27 00:29 05:05 PT 10.6 (9.0-12.0) sec APTT 23.1 85.3 H 71.2 H (22.0-30.0) sec Lipids 09/05/20 Range/Units 05:05 Triglycerides <50.0 (0.0-149.0) mg/dL Cholesterol 115 (0-200) mg/dL HDL Cholesterol 46.0 (40.0-60.0) mg/dL Cholesterol/HDL Ratio 2.50 CBC 09/04/20 09/05/20 Range/Units 16:27 05:05 WBC 10.0 10.18 H (3.8-10.6) k/uL RBC 4.44 3.94 L (4.30-5.90) m/uL Hgb 14.6 12.6 L (13.0-17.5) gm/dL Hct 42.2 38.3 L (39.0-53.0) % Plt Count 210 223 (150-450) k/uL Comprehensive Metabolic Panel 09/04/20 09/05/20 Range/Units 16:27 05:05 Sodium 137 143 (137-145) mmol/L Potassium 4.4 4.3 (3.5-5.1) mmol/L Chloride 109 H 110 H (98-107) mmol/L Carbon Dioxide 21 L 26.5 (22-30) mmol/L BUN 20 22.0 (9-20) mg/dL Creatinine 0.88 0.9 (0.66-1.25) mg/dL Glucose 91 101 (74-99) mg/dL Calcium 9.6 8.9 (8.4-10.2) mg/dL AST 27 26 (17-59) U/L ALT 32 30 (4-49) U/L Alkaline Phosphatase 71 66 (38-126) U/L Total Protein 6.1 L 4.8 L (6.3-8.2) g/dL Albumin 3.7 3.60 L (3.5-5.0) g/dL Current Medications Generic Name Dose Route Start Last Admin Trade Name Freq PRN Reason Stop Dose Admin Aspirin 81 mg 09/05/20 09:00 09/05/20 09:13 Aspirin 81 Mg PO 81 mg DAILY FATMATA Administration Atorvastatin Calcium 80 mg 09/04/20 21:00 09/04/20 20:13 Atorvastatin 80 Mg Tab PO 80 mg HS FATMATA Administration Finasteride 5 mg 09/04/20 21:00 09/04/20 20:13 Finasteride 5 Mg Tab PO 5 mg HS FATMATA Administration Furosemide 40 mg 09/04/20 19:14 Furosemide 40 Mg Tab PO MOWEFR PRN Edema Heparin Sodium/Sodium Chloride 250 mls @ 9.144 mls/hr 09/04/20 18:00 09/05/20 05:51 25,000 unit/ Sodium Chloride IV 8 units/kg/hr .Q24H [facility] 6.096 mls/hr Titration Protocol 12 UNITS/KG/HR Isosorbide Mononitrate 20 mg 09/04/20 21:00 09/05/20 09:12 Isosorbide Mononitrate 20 Mg Tab PO Not Given BID [facility] Lisinopril 10 mg 09/05/20 09:00 09/05/20 09:11 Lisinopril 10 Mg Tab PO Not Given DAILY [facility] Nitroglycerin 0.4 mg 09/04/20 17:50 Nitroglycerin Sl Tabs 0.4 Mg Tab SUBLINGUAL Q5M PRN Chest Pain Pantoprazole Sodium 40 mg 09/05/20 07:30 09/05/20 09:13 Pantoprazole 40 Mg Tablet PO 40 mg [id number] FATMATA Administration Potassium Chloride 20 meq 09/04/20 19:14 Potassium Chloride Er 20 Meq Tab.Er PO MOWEFR PRN W/LASIX Tamsulosin HCl 0.4 mg 09/05/20 09:00 09/05/20 09:11 Tamsulosin 0.4 Mg Cap.Er.24h PO Not Given DAILY [facility] Intake and Output 09/04/20 09/05/20 09/05/20 22:59 06:59 14:59 Intake Total 100.635 Balance 100.635 Intake: Intake, IV Titration 100.635 Amount Heparin Sod,Pork in 0.45% 100.635 NaCl 25,000 unit In 0.45 % NaCl 1 250ml.bag @ 12 UNITS/KG/HR 9.144 mls/hr IV .Q24H [facility] Rx#: [id number] Other: Voiding Method Toilet Toilet # Voids 1 2 2 Weight 76.204 kg 09/05/20 05:05 09/05/20 05:05
[2020-09-05 14:12] VITALS: BP 153/72; PULSE 63; RESP 18
--- NOTE | 2020-09-05 17:46 | ECHOF ---
Referral Reason:LV function MEASUREMENTS -------- HEIGHT: 180.3 cm WEIGHT: 76.2 kg BP: RVIDd: 2.5 cm (< 3.3) IVSd: 1.3 cm (0.6 - 1.1) LVIDd: 4.3 cm (3.9 - 5.3) LVPWd: 1.5 cm (0.6 - 1.1) IVSs: 2.5 cm LVIDs: 1.9 cm LVPWs: 2.0 cm LAESV Index (A-L): 18.88 ml/m Ao Diam: 2.5 cm (2.0 - 3.7) AV Cusp: 1.5 cm (1.5 - 2.6) LA Diam: 3.5 cm (2.7 - 3.8) MV EXCURSION: 19.436 mm (> 18.000) MV EF SLOPE: 66 mm/s (70 - 150) EPSS: 0.6 cm MV E Jose Luis: 0.75 m/s MV DecT: 197 ms MV A Jose Luis: 1.44 m/s MV E/A Ratio: 0.52 AV maxP.68 mmHg AV meanP.10 mmHg RAP: 5.00 mmHg RVSP: 15.07 mmHg FINDINGS -------- This was a technically good study. The left ventricular size is normal. There is mild concentric left ventricular hypertrophy. Overa ll left ventricular systolic function is normal with, an EF between 55 - 60 %. Normal LAP Grade 1 D iastolic Dysfunction. The right ventricle is normal in size. The left atrial size is normal. Normal LA size by volume 22+/-6 ml/m2. The right atrial size is normal. Aortic valve is trileaflet and is mildly thickened. There is mild aortic stenosis present. Peak/m titi gradient across the Aortic Valve is 21.68mmHg / 13.10mmHg. The mitral valve is normal. The mitral valve leaflets are mildly thickened. There is trace mitral regurgitation. The tricuspid valve appears structurally normal. Trace tricuspid regurgitation present. Right aakash tricular systolic pressure is normal at < 35 mmHg. There is no pulmonic regurgitation present. The aortic root size is normal. IVC Not well visulized. There is no pericardial effusion. CONCLUSIONS -------- 1. The left ventricular size is normal. 2. There is mild concentric left ventricular hypertrophy. 3. Overall left ventricular systolic function is normal with, an EF between 55 - 60 %. 4. Normal LAP Grade 1 Diastolic Dysfunction. 5. Aortic valve is trileaflet and is mildly thickened. 6. There is mild aortic stenosis present. 7. Peak/mean gradient across the Aortic Valve is 21.68mmHg / 13.10mmHg. 8. The mitral valve leaflets are mildly thickened. 9. There is trace mitral regurgitation. 10. Trace tricuspid regurgitation present. 11. There is no pericardial effusion. MANAGER HOME: Alexandra Prieto RDCS
== END 2020-09-05 16:48 | disposition home or self-care (01) ==
LOC: EC 15:53 → 6NMEDSUR 18:07
PROVIDERS: ADMIT Internal Medicine; ATTEND Internal Medicine
DX: I25.110 Atherosclerotic heart disease of native coronary artery with unstable angina pectoris (principal); I50.32 Chronic diastolic (congestive) heart failure; I11.0 Hypertensive heart disease with heart failure; R00.1 Bradycardia, unspecified; E78.5 Hyperlipidemia, unspecified; I25.2 Old myocardial infarction; E78.00 Pure hypercholesterolemia, unspecified; I44.0 Atrioventricular block, first degree; M50.30 Other cervical disc degeneration, unspecified cervical region; N40.0 Benign prostatic hyperplasia without lower urinary tract symptoms; Z82.49 Family history of ischemic heart disease and other diseases of the circulatory system; Z95.5 Presence of coronary angioplasty implant and graft; Z87.891 Personal history of nicotine dependence; Z82.3 Family history of stroke; Z20.822 Contact with and (suspected) exposure to COVID-19; Z98.1 Arthrodesis status; Z79.899 Other long term (current) drug therapy; Z79.82 Long term (current) use of aspirin
CPT/HCPCS: 96366 ×2; 93005 ×2; 96376; 96365; 99291; 36415; 93306; 97162; 85379; 83880; 80061; 80053 ×2; 83735; 84484; 85025 ×2; 85610; 85730 ×2; 87635; 71046; G0378 ×2; S0138; J1644 ×2

== ENCOUNTER 2021-06-12 12:28 | Observation (INO) | payer MEDICARE, OTHER ==
--- NOTE | 2021-06-12 13:00 | ED ---
General Adult HPI - General Stated complaint: chest pain Time Seen by Provider: 06/12/21 12:32 Source: patient, EMS, RN notes reviewed, old records reviewed - History of Present Illness Initial comments: 86-year-old male history of CAD presenting with an episode of chest pain and dyspnea. This began this morning. He states that he has had some intermittent issues similar to this over the past several weeks. He denies cough or fever. He states his symptoms are currently resolved. He denies abdominal pain nausea or vomiting. Denies radiating symptoms. - Related Data Home Medications Medication Instructions Recorded Confirmed Isosorbide Mononitrate [Ismo] 20 mg PO BID 03/25/14 09/04/20 Aspirin 81 mg PO DAILY 01/07/15 09/04/20 Atorvastatin Calcium [Lipitor] 80 mg PO HS 08/12/18 09/04/20 Finasteride [Proscar] 5 mg PO HS 08/12/18 09/04/20 Furosemide [Lasix] 40 mg PO MOWEFR PRN 12/07/19 09/04/20 Lisinopril [Zestril] 10 mg PO DAILY 12/07/19 09/04/20 Tamsulosin [Flomax] 0.4 mg PO DAILY 12/07/19 09/04/20 Potassium Chloride ER [K-Dur 20] 20 meq PO MOWEFR PRN 09/04/20 09/04/20 Allergies Allergy/AdvReac Type Severity Reaction Status Date / Time adhesive dressings Allergy pulls skin Uncoded 06/12/21 13:08 off Review of Systems ROS Statement: Those systems with pertinent positive or pertinent negative responses have been documented in the HPI. ROS Other: All systems not noted in ROS Statement are negative. Past Medical History Past Medical History: Hyperlipidemia, Hypertension, Myocardial Infarction ([place]), Osteoarthritis (OA), Pneumonia Additional Past Medical History / Comment(s): has some balance issue, uses cane when outside home, sinus problems, Last Myocardial Infarction Date:: 1993 History of Any Multi-Drug Resistant Organisms: None Reported Past Surgical History: Back Surgery, Heart Catheterization, Tonsillectomy Additional Past Surgical History / Comment(s): 2 Neck surgery, 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 has 1 pet dog. pt uses cane when outdoors, drives. no home care services, . pt served in [employer] from [id number]. worked for [employer] from 1962 to 1991. Smoking Status: Former smoker Past Alcohol Use History: None Reported Additional Past Alcohol Use History / Comment(s): QUIT SMOKING IN 1989, SMOKED SINCE AGE 18 (1952) SMOKED 1 PPD, past heavy etoh but quit 1986. Past Drug Use History: None Reported - Past Family History Father Family Medical History: Myocardial Infarction ([place]) (Father at age of 78 from pedestrian MVA head injury, but he had history of CAD post multiple MIs.) Additional Family Medical History / Comment(s): Several mi's, but from complications of pedestrain/mva-head injury. Mother Family Medical History: CVA/TIA (Mother at age of 80 from CVA) Daughter(s) Family Medical History: Diabetes Mellitus (Patient has 2 daughters one with diabetes mellitus type 2 hypertension hyperlipidemia and other one with multiple sclerosis.) General Exam General appearance: alert, in no apparent distress Head exam: Present: atraumatic, normocephalic Eye exam: Present: normal appearance, PERRL ENT exam: Present: normal exam Neck exam: Present: normal inspection. Absent: tenderness, meningismus Respiratory exam: Present: normal lung sounds bilaterally. Absent: respiratory distress, wheezes Cardiovascular Exam: Present: regular rate, normal rhythm GI/Abdominal exam: Present: soft. Absent: distended, tenderness Extremities exam: Present: normal inspection, normal capillary refill. Absent: pedal edema, calf tenderness Neurological exam: Present: alert, oriented X3, CN II-XII intact. Absent: motor sensory deficit Course Vital Signs 06/12/21 12:35 Temperature 98.2 F Pulse Rate 46 L Respiratory 20 Rate Blood Pressure 167/78 O2 Sat by Pulse 99 Oximetry EKG Findings - EKG Comments: EKG Findings:: EKG: Sinus bradycardia with first-degree AV block PVC no ST segment elevation rate of 49, IL interval 220, QRS duration 90, QTC 419 Medical Decision Making - Medical Decision Making 86 -year-old male presenting for evaluation chest pain. Pain resolved upon arrival. Patient does have previous history of CAD. EKG is sinus rhythm without ST segment elevation. Chest x-ray negative for acute findings. Patient has normal CBC, normal CMP, negative initial troponin. His coronavirus testing is negative. He will be kept in observation for serial cardiac enzymes and telemetry. Case discussed with Dr. Michel who will accept. Cardiology consultation. - Lab Data Result diagrams: 06/12/21 12:55 06/12/21 12:55 Lab Results 06/12/21 06/12/21 06/12/21 Range/Units 12:55 12:55 12:55 WBC 8.8 (3.8-10.6) k/uL RBC 4.82 (4.30-5.90) m/uL Hgb 15.7 (13.0-17.5) gm/dL Hct 44.8 (39.0-53.0) % MCV 92.9 (80.0-100.0) fL MCH 32.6 (25.0-35.0) pg MCHC 35.1 (31.0-37.0) g/dL RDW 12.6 (11.5-15.5) % Plt Count 213 (150-450) k/uL MPV 7.3 Neutrophils % 53 % Lymphocytes % 37 % Monocytes % 5 % Eosinophils % 4 % Basophils % 1 % Neutrophils # 4.6 (1.3-7.7) k/uL Lymphocytes # 3.3 (1.0-4.8) k/uL Monocytes # 0.4 (0-1.0) k/uL Eosinophils # 0.3 (0-0.7) k/uL Basophils # 0.1 (0-0.2) k/uL PT 10.3 (9.0-12.0) sec INR 1.0 (<1.2) APTT 19.3 L (22.0-30.0) sec Sodium 139 (137-145) mmol/L Potassium 4.6 (3.5-5.1) mmol/L Chloride 109 H (98-107) mmol/L Carbon Dioxide 23 (22-30) mmol/L Anion Gap 7 mmol/L BUN 19 (9-20) mg/dL Creatinine 0.90 (0.66-1.25) mg/dL Est GFR (CKD-EPI)AfAm >90 (>60 ml/min/1.73 sqM) Est GFR (CKD-EPI)NonAf 78 (>60 ml/min/1.73 sqM) Glucose 106 H (74-99) mg/dL Calcium 9.8 (8.4-10.2) mg/dL Magnesium 2.0 (1.6-2.3) mg/dL Total Bilirubin 1.0 (0.2-1.3) mg/dL AST 34 (17-59) U/L ALT 32 (4-49) U/L Alkaline Phosphatase 64 (38-126) U/L Troponin I (0.000-0.034) ng/mL NT-Pro-B Natriuret Pep pg/mL Total Protein 6.3 (6.3-8.2) g/dL Albumin 3.8 (3.5-5.0) g/dL Coronavirus (PCR) (Not Detectd) 06/12/21 06/12/21 06/12/21 Range/Units 12:55 12:55 12:55 WBC (3.8-10.6) k/uL RBC (4.30-5.90) m/uL Hgb (13.0-17.5) gm/dL Hct (39.0-53.0) % MCV (80.0-100.0) fL MCH (25.0-35.0) pg MCHC (31.0-37.0) g/dL RDW (11.5-15.5) % Plt Count (150-450) k/uL MPV Neutrophils % % Lymphocytes % % Monocytes % % Eosinophils % % Basophils % % Neutrophils # (1.3-7.7) k/uL Lymphocytes # (1.0-4.8) k/uL Monocytes # (0-1.0) k/uL Eosinophils # (0-0.7) k/uL Basophils # (0-0.2) k/uL PT (9.0-12.0) sec INR (<1.2) APTT (22.0-30.0) sec Sodium (137-145) mmol/L Potassium (3.5-5.1) mmol/L Chloride (98-107) mmol/L Carbon Dioxide (22-30) mmol/L Anion Gap mmol/L BUN (9-20) mg/dL Creatinine (0.66-1.25) mg/dL Est GFR (CKD-EPI)AfAm (>60 ml/min/1.73 sqM) Est GFR (CKD-EPI)NonAf (>60 ml/min/1.73 sqM) Glucose (74-99) mg/dL Calcium (8.4-10.2) mg/dL Magnesium (1.6-2.3) mg/dL Total Bilirubin (0.2-1.3) mg/dL AST (17-59) U/L ALT (4-49) U/L Alkaline Phosphatase (38-126) U/L Troponin I <0.012 (0.000-0.034) ng/mL NT-Pro-B Natriuret Pep 282 pg/mL Total Protein (6.3-8.2) g/dL Albumin (3.5-5.0) g/dL Coronavirus (PCR) Not Detected (Not Detectd) Disposition Clinical Impression: Chest pain Disposition: ADMITTED IP TO [facility] Condition: Stable Is patient prescribed a controlled substance at d/c from ED?: No Referrals: Nayeli Michel MD [Primary Care Provider] - 1-2 days Decision to Admit Reason: Admit from EC Decision Date: 06/12/21 Decision Time: 14:59
[2021-06-12 13:13] LABS: Basophils # (A) 0.1 k/uL (0-0.2); Basophils % (A) 1 %; Eosinophils # (A) 0.3 k/uL (0-0.7); Eosinophils % (A) 4 %; HCT 44.8 % (39.0-53.0); HGB 15.7 gm/dL (13.0-17.5); Lymphocytes # (A) 3.3 k/uL (1.0-4.8); Lymphocytes % (A) 37 %; MCH 32.6 pg (25.0-35.0); MCHC 35.1 g/dL (31.0-37.0); MCV 92.9 fL (80.0-100.0); Mean Platelet Volume 7.3; Monocytes # (A) 0.4 k/uL (0-1.0); Monocytes % (A) 5 %; Neutrophils # (A) 4.6 k/uL (1.3-7.7); Neutrophils % (A) 53 %; Platelet Count 213 k/uL (150-450); RBC 4.82 m/uL (4.30-5.90); RDW 12.6 % (11.5-15.5); WBC 8.8 k/uL (3.8-10.6)
[2021-06-12 13:21] LABS: ALT 32 U/L (4-49); AST 34 U/L (17-59); African American GFR (CKD) >90 (>60 ml/min/1.73 sqM); Albumin 3.8 g/dL (3.5-5.0); Alkaline Phosphatase 64 U/L (38-126); Anion Gap 7 mmol/L; Blood Urea Nitrogen 19 mg/dL (9-20); Calcium 9.8 mg/dL (8.4-10.2); Carbon Dioxide 23 mmol/L (22-30); Chloride 109 mmol/L (98-107); Glucose 106 mg/dL (74-99); Non-African American GFR(CKD) 78 (>60 ml/min/1.73 sqM); Potassium 4.6 mmol/L (3.5-5.1); Sodium 139 mmol/L (137-145); Total Protein 6.3 g/dL (6.3-8.2)
--- NOTE | 2021-06-12 13:29 | XR ---
EXAMINATION TYPE: XR chest 2V DATE OF EXAM: 06/12/2021 COMPARISON: 09/04/2020 TECHNIQUE: PA and lateral views submitted. HISTORY: Chest pain FINDINGS: The lungs are clear and there is no pneumothorax, pleural effusion, or focal pneumonia. Postsurgica l change overlying the vertebral column. Mild hyperinflation. Heart size normal. No pneumothorax or p leural effusion. No overt failure. Arthropathy of the shoulders. Degenerative change of the spine. IMPRESSION: 1. No acute process. 2. Correlate for COPD.
[2021-06-12 13:34] LABS: Prothrombin Time 10.3 sec (9.0-12.0)
[2021-06-12 13:38] LABS: Partial Thromboplastin Time 19.3 sec (22.0-30.0)
[2021-06-12] MEDS ORDERED: ASPIRIN 325 MG TAB PO STA (14:46)
[2021-06-12] MEDS ORDERED: predniSONE 50 MG TAB PO STA (14:49)
[2021-06-12] MEDS ORDERED: MORPHINE SULFATE 4 MG/ML SYRINGE IV PRN (14:50)
[2021-06-12] MEDS ORDERED: NALOXONE 0.4 MG/ML 1 ML VIAL IV PRN (14:50)
[2021-06-12] MEDS ORDERED: ACETAMINOPHEN TAB 325 MG TAB PO PRN (14:50)
[2021-06-12] MEDS: IPRATROPIUM-ALBUTEROL 3 ML NEB INHALATION SCH ×2 (16:52→20:30)
[2021-06-12] MEDS ORDERED: ASPIRIN 81 MG PO SCH (21:00)
[2021-06-12] MEDS ORDERED: FINASTERIDE 5 MG TAB PO SCH (21:00)
[2021-06-13] MEDS ORDERED: PANTOPRAZOLE 40 MG TABLET PO SCH (07:30)
[2021-06-13] MEDS: IPRATROPIUM-ALBUTEROL 3 ML NEB INHALATION SCH ×3 (07:46→15:27)
[2021-06-13] MEDS: ISOSORBIDE MONONITRATE 20 MG TAB PO SCH ×2 (08:06→16:45)
--- NOTE | 2021-06-13 08:18 | P.HPIM ---
History of Present Illness H&P Date: 06/12/21 Chief Complaint: Chest pain HISTORY OF PRESENT ILLNESS: This is an 86-year-old male patient of eduardo and Dr. Myers with a past medical history coronary artery disease status post PCI of the LAD and RCA, history of hypertension, hyperlipidemia BPH, neck and back surgeries for degenerative arthritis, patient was hospitalized at [facility] in November 2019 after he was admitted for increased chest pain as well as shortness of breath associated with a bradycardia at that time his troponin was mildly elevated he was seen in consultation by cardiology underwent left heart catheterization that time that showed heavily calcified triple vessel disease with a patent stented segment of the LAD and RCA as well as minimal impaired LV function with ejection fraction 50%, was recommended for the patient in time for aggressive risk factor modification and he was placed on dual antibiotic therapy in the form of baby aspirin and Plavix however the patient stopped his Plavix on his own because of increased bruising over his body, patient continues to have generalized weakness and inability to perform activities of daily living, he presented to the emergency department at [facility] today with increased chest pain associated with shortness breath, his cardiac enzymes are negative his laboratory evaluation was negative however because of the p resentation and because of the prior history he was admitted to the hospital for evaluation by cardiology per REVIEW OF SYSTEMS: Constitutional: No documented fever, no chills, no night sweats. No weight change. positive for weakness, fatigue or lethargy. No daytime sleepiness. HEENT: No headache. No blurred vision or double vision, no loss of vision. No loss of Hearing, no ringing in the ears, no dizziness. No nasal drainage or congestion. No epistaxis. No sore throat. Lungs: Positive for shortness of breath, no cough, no sputum production. No wheezing. Reports dyspnea with activity. Cardiovascular: No chest pain, no lower extremity edema. No palpitations. No paroxysmal nocturnal dyspnea. No orthopnea. No lightheadedness or dizziness. No syncopal episodes. Abdominal: Reports no abdominal pain. No nausea, vomiting. No diarrhea. No constipation. No bloody or tarry stools reports loss of appetite. Genitourinary: No dysuria, increased frequency, urgency. No urinary retention. Musculoskeletal: No myalgias. No muscle weakness,positive for gait dysfunction, positive for frequent falls, positive for back pain, and neck pain. Integumentary: No wounds, no lesions. No rash or pruritus. No unusual bruising. No change in hair or nails. Neurologic: No aphasia. No facial droop. No change in mentation. No head injury. No headache. No paralysis. No paresthesia. Psychiatric: positive for depression. No anxiety. positive for mood swings. Endocrine: No abnormal blood sugars. No weight change. PAST MEDICAL HISTORY: CAD post-PCI of the LAD and RCA. Minimal LV dysfunction. Hypertension and hypertensive cardiovascular disease. Hyperlipidemia. Essential tremor. BPH . 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 Recurrent falls. PAST SURGICAL HISTORY: Posterior cervical discectomy with fusion. Lumbar discectomy with fusion . Bilateral cataract surgery Left heart catheterization with PCI of the LAD and RCA. SOCIAL HISTORY: Patient used to smoke about pack every day he started smoking when he was 18-year-old and quit in 1989 patient used to be heavy drinker he quit drinking in 1986 he lives with his , he uses a cane for immolation, he denies any drug use or abuse. FAMILY HISTORY: Father at age of 78 from multiple injuries due to pedestrian motor vehicle accident injury but he had several MIs, mother at age of 80 from CVA/TIA, patient has 2 daughters one with obesity hypertension hyperlipidemia and diabetes mellitus type 2, the other one with MS. PHYSICAL EXAMINATION: General: 86-year-old male lying down in bed in no apparent distress. HEENT: Head is atraumatic, normocephalic, pupils were equal round reactive to light and recommendation, extraocular muscle movement were intact, sclera nonicteric, conjunctivae were pale, mucous membranes of the mouth are somewhat dry. Neck: Supple, no JVP, normal carotid upstroke bilaterally, no lymphadenopathy. Chest: Decreased breath sounds at the bases, few rhonchi, no extremity wheezes, no chest wall tenderness, no intercostal retractions. Heart: First heart sound is normal, second heart sounds normal there is systolic ejection murmur 2/6 located in the left sternal border. Abdomen: Soft, nontender, nondistended, positive bowel sounds. Extremities: There is no edema no calf tenderness DP +2 bilaterally. Neurologic examination: Patient is awake alert and oriented X 3, cranial nerves II-12 appear grossly intact, muscle power were 5 out of 5 in upper extremities and 5 out of 5 in bilateral lower extremities, deep tendon reflexes normal bilaterally. ASSESSMENT AND PLAN: 1. Effort angina with significant dyspnea with minimal exertion likely related to chronic CAD and chronic diastolic heart failure rule out unstable angina. Start the patient on aspirin 81 mg once every day, Lipitor 80 mg once every day, isosorbide 20 mg orally twice every day, she has had a heart catheterization in November 2019 that showed calcified triple-vessel disease with patent stent to the LAD and RCA with minimal decrease in LV function at 50%, patient has been on maximum medical therapy we will continue lisinopril 10 mg orally once every day, may add Ranexa 500 mg orally twice every day, cardiology consultation. 2. History of CAD post-PCI of the LAD and RCA. Last heart catheterization November 2019 showed stable disease. Continue aspirin 81 mg once every day, Lipitor 80 mg once every day, lisinopril 10 mg every day, isosorbide 20 mg orally twice every day, consider adding Ranexa 500 mg orally twice every day. 3. Hypertension and hypertensive cardiovascular disease. Continue lisinopril 10 mg orally once every day. 4. Sinus bradycardia with significant first-degree AV block. Monitor the patient overnight. 5. Hyperlipidemia. Continue Lipitor 80 mg once every day, keep LDL cholesterol 55-70. 6. Enlarged prostate continue Flomax 0.4 mg once every day. 7. 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 Continue with physical therapy as needed. 8. Chronic diastolic heart failure. Continue patient on lisinopril 10 mg or ally once every day, continue with Lasix 40 mg orally once every day Tuesday along with potassium supplements. 9. DVT prophylaxis. Lovenox 40 mg subcutaneously every 24 hours as well as bilateral knee-high JENNIFER hose. 10. GI process. Continue Protonix 40 mg orally once every day. 11. Admitted to inpatient. Estimated length of stay 2 midnights 12. Patient is full code. Past Medical History Past Medical History: Hyperlipidemia, Hypertension, Myocardial Infarction ([place]), Osteoarthritis (OA), Pneumonia Additional Past Medical History / Comment(s): has some balance issue, uses cane when outside home, sinus problems, Last Myocardial Infarction Date:: 1993 History of Any Multi-Drug Resistant Organisms: None Reported Past Surgical History: Back Surgery, Heart Catheterization, Tonsillectomy Additional Past Surgical History / Comment(s): 2 Neck surgery, 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 has 1 pet dog. pt uses cane when outdoors, drives. no home care services, . pt served in [employer] from [phone]. worked for [employer] from 1962 to 1991. Smoking Status: Former smoker Past Alcohol Use History: None Reported Additional Past Alcohol Use History / Comment(s): QUIT SMOKING IN 1989, SMOKED SINCE AGE 18 (1950) SMOKED 1 PPD, past heavy etoh but quit 1986. Past Drug Use History: None Reported - Past Family History Father Family Medical History: Myocardial Infarction ([place]) Additional Family Medical History / Comment(s): Several mi's, but from complications of pedestrain/mva-head injury. Mother Family Medical History: CVA/TIA Daughter(s) Family Medical History: Diabetes Mellitus (Patient has 2 daughters one with diabetes mellitus type 2 hypertension hyperlipidemia and other one with multiple sclerosis.) Medications and Allergies Home Medications Medication Instructions Recorded Confirmed Type Isosorbide Mononitrate [Ismo] 20 mg PO BID 03/25/14 06/12/21 History Atorvastatin Calcium [Lipitor] 80 mg PO DAILY 08/12/18 06/12/21 History Finasteride [Proscar] 5 mg PO HS 08/12/18 06/12/21 History Lisinopril [Zestril] 10 mg PO DAILY 12/07/19 06/12/21 History Tamsulosin [Flomax] 0.4 mg PO DAILY 12/07/19 06/12/21 History Aspirin EC [Ecotrin Low Dose] 81 mg PO HS 06/12/21 06/12/21 History Cyanocobalamin [Vitamin B-12 See Taper SQ DIRECTED 06/12/21 06/12/21 History Injection] Propranolol [Inderal] 10 mg PO DAILY 06/12/21 06/12/21 History Allergies Allergy/AdvReac Type Severity Reaction Status Date / Time adhesive tape Allergy pulls skin Verified 06/12/21 15:15 off adhesive dressings Allergy pulls skin Uncoded 06/12/21 15:15 off Physical Exam Vitals: Vital Signs Temp Pulse Resp BP Pulse Ox 06/12/21 12:35 98.2 F 46 L 20 167/78 99 Intake and Output 06/12/21 06/12/21 06/12/21 06:59 14:59 22:59 Other: Weight 80.739 kg Results CBC & Chem 7: 06/12/21 12:55 06/12/21 12:55 Labs: Abnormal Lab Results - Last 24 Hours (Table) 06/12/21 06/12/21 Range/Units 12:55 12:55 APTT 19.3 L (22.0-30.0) sec Chloride 109 H (98-107) mmol/L Glucose 106 H (74-99) mg/dL
[2021-06-13] MEDS ORDERED: ATORVASTATIN 80 MG TAB PO SCH (09:00)
[2021-06-13] MEDS ORDERED: TAMSULOSIN 0.4 MG CAP.ER.24H PO SCH (09:00)
[2021-06-13] MEDS ORDERED: ENOXAPARIN 40 MG/0.4 ML SYRINGE SQ SCH (09:00)
[2021-06-13] MEDS ORDERED: lisinopriL 10 MG TAB PO SCH ×2 (09:00→21:00)
[2021-06-13] MEDS ORDERED: PROPRANOLOL 10 MG TAB PO SCH (09:00)
[2021-06-13 09:10] LABS: African American GFR (CKD) 95.1 (60.0-200.0); Albumin 3.6 g/dL (3.8-4.9); Albumin/Globulin Ratio 2.25 (1.60-3.17); Anion Gap 9.6 mmol/L (10.00-18.00); BUN/Creat Ratio 26.5 Ratio (12.00-20.00); Blood Urea Nitrogen 21.2 mg/dL (9.0-27.0); Calcium 9.1 mg/dL (8.7-10.3); Carbon Dioxide 21.4 mmol/L (20.0-27.5); Globulin 1.6 g/dL (1.6-3.3); Potassium 4.6 mmol/L (3.5-5.5); Total Bilirubin 0.6 mg/dL (0.30-1.20); Total Protein 5.2 g/dL (6.2-8.2)
[2021-06-13 09:12] LABS: Basophils # (A) 0.03 X 10*3/uL (0.00-0.10); Basophils % (A) 0.2 %; Eosinophils # (A) 0 X 10*3/uL (0.04-0.35); Eosinophils % (A) 0 %; HCT 40.5 % (39.6-50.0); HGB 13.6 g/dL (13.0-17.0); Lymphocytes # (A) 3.46 X 10*3/uL (0.90-5.00); Lymphocytes % (A) 24.1 %; MCH 31.8 pg (27.0-32.0); MCHC 33.6 g/dL (32.0-37.0); MCV 94.6 fL (80.0-97.0); Mean Platelet Volume 9.4 fL (9.5-12.2); Monocytes # (A) 0.78 X 10*3/uL (0.20-1.00); Monocytes % (A) 5.4 %; Neutrophils # (A) 10.05 X 10*3/uL (1.80-7.70); Platelet Count 217 X 10*3/uL (140-440); RBC 4.28 X 10*6/uL (4.40-5.60); RDW 12.5 % (11.5-14.5); WBC 14.37 X 10*3/uL (4.50-10.00)
--- NOTE | 2021-06-13 14:01 | ECHOF ---
Referral Reason:chest pain MEASUREMENTS -------- HEIGHT: 177.8 cm WEIGHT: 84.4 kg BP: 172/62 RVIDd: 3.3 cm (< 3.3) IVSd: 1.3 cm (0.6 - 1.1) LVIDd: 3.8 cm (3.9 - 5.3) LVPWd: 1.3 cm (0.6 - 1.1) IVSs: 2.1 cm LVIDs: 2.7 cm LVPWs: 1.5 cm LAESV Index (A-L): 13.56 ml/m Ao Diam: 3.1 cm (2.0 - 3.7) AV Cusp: 1.3 cm (1.5 - 2.6) LA Diam: 4.4 cm (2.7 - 3.8) MV EXCURSION: 13.883 mm (> 18.000) MV EF SLOPE: 113 mm/s (70 - 150) EPSS: 0.6 cm MV E Jose Luis: 0.72 m/s MV DecT: 409 ms MV A Jose Luis: 1.35 m/s MV E/A Ratio: 0.54 AV maxP.61 mmHg AV meanP.06 mmHg FINDINGS -------- Sinus rhythm. This was a technically adequate study. The left ventricular size is normal. There is mild concentric left ventricular hypertrophy. Overa ll left ventricular systolic function is normal with, an EF between 55 - 60 %. The diastolic fillin g pattern is normal for the age of the patient 15.67. The right ventricle is mildly enlarged. Normal LA size by volume 22+/-6 ml/m2. The right atrial size is normal. Interatrial and interventricular septum intact. There is no evidence of aortic regurgitation. There is no evidence of aortic stenosis. There is trace to mild mitral regurgitation. Mild tricuspid regurgitation present. There is no evidence of pulmonary hypertension. The right v entricular systolic pressure, as measured by Doppler, is {RVSP}. There is no pulmonic regurgitation present. The aortic root size is normal. IVC Not well visulized. There is no pericardial effusion. CONCLUSIONS -------- 1. The left ventricular size is normal. 2. There is mild concentric left ventricular hypertrophy. 3. Overall left ventricular systolic function is normal with, an EF between 55 - 60 %. 4. The right ventricle is mildly enlarged. 5. There is trace to mild mitral regurgitation. 6. Mild tricuspid regurgitation present. STENOTYPE OPERATOR: Jolie Cosme RDCS
--- NOTE | 2021-06-13 14:27 | P.CRDCN ---
History of Present Illness Consult date: 06/13/21 Requesting physician: Nayeli Michel Reason for Consult (text): chest pain Chief complaint: chest pain History of present illness: This is a pleasant 86-year-old gentleman who follows in the office with Dr. Myers. The past medical history significant for CAD, status post stenting of the RCA and LAD with most recent cardiac catheterization from November 2019 showing mild to moderate triple-vessel disease with calcified coronary arteries and patent stent, hypertension, hyperlipidemia and prior nicotine dependence. Presented to the emergency department with complaints of upper abdominal discomfort. Occurred at about 8 in the morning and he went to lie back down to see if it would go away and the pain persisted so he decided to come to the emergency department. Patient has been pain-free since arrival. Troponins have been negative 3. EKG shows sinus bradycardia with PVC, evidence of prior inferior infarct, no evidence of acute ischemia, no changes compared to previous. Chest x-ray showed no acute process with evidence of COPD. Upon examination patient is resting comfortably in bed. Denies any current complaints. He has mild dyspnea on exertion but this is stable. His activity remains limited due to his severe arthritis. He's had no orthopnea, PND or edema. He's had no palpitations, syncope or near syncope. Patient did have 14 beat run of nonsustained VT that was asymptomatic. Past Medical History Past Medical History: Hyperlipidemia, Hypertension, Myocardial Infarction ([place]), Osteoarthritis ([place]), Pneumonia Additional Past Medical History / Comment(s): has some balance issue, uses cane when outside home, sinus problems, Last Myocardial Infarction Date:: 1993 History of Any Multi-Drug Resistant Organisms: None Reported Past Surgical History: Back Surgery, Heart Catheterization, Tonsillectomy Additional Past Surgical History / Comment(s): 2 Neck surgery, 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 has 1 pet dog. pt uses cane when outdoors, drives. no home care services, . pt served in [employer] from [phone]. worked for [employer] from 1962 to 1991. Smoking Status: Former smoker Past Alcohol Use History: None Reported Additional Past Alcohol Use History / Comment(s): QUIT SMOKING IN 1989, SMOKED SINCE AGE 18 (1952) SMOKED 1 PPD, past heavy etoh but quit 1986. Past Drug Use History: None Reported - Past Family History Father Family Medical History: Myocardial Infarction ([place]) Additional Family Medical History / Comment(s): Several mi's, but from complications of pedestrain/mva-head injury. Mother Family Medical History: CVA/TIA Daughter(s) Family Medical History: Diabetes Mellitus (Patient has 2 daughters one with diabetes mellitus type 2 hypertension hyperlipidemia and other one with multiple sclerosis.) Medications and Allergies Home Medications Medication Instructions Recorded Confirmed Type Isosorbide Mononitrate [Ismo] 20 mg PO BID 03/25/14 06/12/21 History Atorvastatin Calcium [Lipitor] 80 mg PO DAILY 08/12/18 06/12/21 History Finasteride [Proscar] 5 mg PO HS 08/12/18 06/12/21 History Lisinopril [Zestril] 10 mg PO DAILY 12/07/19 06/12/21 History Tamsulosin [Flomax] 0.4 mg PO DAILY 12/07/19 06/12/21 History Aspirin EC [Ecotrin Low Dose] 81 mg PO HS 06/12/21 06/12/21 History Cyanocobalamin [Vitamin B-12 See Taper SQ DIRECTED 06/12/21 06/12/21 History Injection] Propranolol [Inderal] 10 mg PO DAILY 06/12/21 06/12/21 History Allergies Allergy/AdvReac Type Severity Reaction Status Date / Time adhesive tape Allergy pulls skin Verified 06/12/21 15:15 off adhesive dressings Allergy pulls skin Uncoded 06/12/21 15:15 off Physical Exam Vitals: Vital Signs Temp Pulse Pulse Pulse Resp BP BP 06/13/21 07:35 97.7 F 62 18 172/62 06/13/21 02:08 98.4 F 56 L 18 167/86 06/12/21 20:41 71 06/12/21 20:31 67 06/12/21 19:41 98.0 F 82 17 172/76 06/12/21 18:56 71 18 148/79 06/12/21 17:04 57 L 18 161/68 06/12/21 14:30 51 L 20 157/78 06/12/21 13:30 50 L 20 158/80 06/12/21 12:35 98.2 F 46 L 20 167/78 06/12/21 12:30 50 L 20 Pulse Ox 06/13/21 07:35 96 06/13/21 02:08 93 L 06/12/21 20:41 06/12/21 20:31 06/12/21 19:41 97 06/12/21 18:56 98 06/12/21 17:04 97 06/12/21 14:30 95 06/12/21 13:30 98 06/12/21 12:35 99 06/12/21 12:30 Intake and Output 06/12/21 06/13/21 06/13/21 22:59 06:59 14:59 Output Total 1400 Balance -1400 Output: Urine 1400 Other: # Voids 1 Weight 80.739 kg 84.8 kg PHYSICAL EXAMINATION: This is a 86-year-old gentleman in no apparent distress at the time of my examination. VITAL SIGNS: Blood pressure 172/62, heart rate 62, respirations 18, temp 97.7F. Patient is 96 % on room air. HEENT: Head is atraumatic, normocephalic. Pupils are equal, round. Sclerae anicteric. Conjunctivae are clear. Mucous membranes of the mouth are moist. Neck is supple. There is no elevated jugular venous pressure. No carotid bruit is heard. CHEST EXAMINATION: Lungs are diminished but clear to auscultation. No wheezes rales or rhonchi. Respirations even and nonlabored. HEART EXAMINATION: Heart regular, positive S1 and S2. No S3. No S4. Systolic ejection murmur at the base. ABDOMEN: Soft, nontender. Bowel sounds are heard. No organomegaly noted. EXTREMITIES: 2+ peripheral pulses with no evidence of peripheral edema and no calf tenderness noted. NEUROLOGIC EXAMINATION: Patient is awake, alert and oriented x3. Results 06/13/21 06:50 06/13/21 06:50 Cardiac Enzymes 06/12/21 06/12/21 06/12/21 Range/Units 12:55 12:55 17:07 AST 34 (17-59) U/L Troponin I <0.012 0.014 (0.000-0.034) ng/mL 06/12/21 06/13/21 Range/Units 21:22 06:50 AST 18 (17-59) U/L Troponin I 0.022 (0.000-0.034) ng/mL Coagulation 06/12/21 Range/Units 12:55 PT 10.3 (9.0-12.0) sec APTT 19.3 L (22.0-30.0) sec CBC 06/12/21 06/13/21 Range/Units 12:55 06:50 WBC 8.8 14.37 H (3.8-10.6) k/uL RBC 4.82 4.28 L (4.30-5.90) m/uL Hgb 15.7 13.6 (13.0-17.5) gm/dL Hct 44.8 40.5 (39.0-53.0) % Plt Count 213 217 (150-450) k/uL Comprehensive Metabolic Panel 06/12/21 06/13/21 Range/Units 12:55 06:50 Sodium 139 139 (137-145) mmol/L Potassium 4.6 4.6 (3.5-5.1) mmol/L Chloride 109 H 108 (98-107) mmol/L Carbon Dioxide 23 21.4 (22-30) mmol/L BUN 19 21.2 (9-20) mg/dL Creatinine 0.90 0.8 (0.66-1.25) mg/dL Glucose 106 H 138 H (74-99) mg/dL Calcium 9.8 9.1 (8.4-10.2) mg/dL AST 34 18 (17-59) U/L ALT 32 28 (4-49) U/L Alkaline Phosphatase 64 69 (38-126) U/L Total Protein 6.3 5.2 L (6.3-8.2) g/dL Albumin 3.8 3.6 L (3.5-5.0) g/dL Current Medications Generic Name Dose Route Start Last Admin Trade Name Freq PRN Reason Stop Dose Admin Acetaminophen 650 mg 06/12/21 14:50 Acetaminophen Tab 325 Mg Tab PO Q6HR PRN Mild Pain or Fever > 100.5 Albuterol/Ipratropium 3 ml 06/12/21 16:00 06/13/21 07:46 Ipratropium-Albuterol 3 Ml Neb INHALATION Not Given RT-QID FATMATA Aspirin 81 mg 06/12/21 21:00 06/12/21 21:09 Aspirin 81 Mg PO 81 mg HS FATMATA Administration Atorvastatin Calcium 80 mg 06/13/21 09:00 06/13/21 08:07 Atorvastatin 80 Mg Tab PO 80 mg DAILY FATMATA Administration Enoxaparin Sodium 40 mg 06/13/21 09:00 06/13/21 08:07 Enoxaparin 40 Mg/0.4 Ml Syringe SQ 40 mg DAILY FATMATA Administration Finasteride 5 mg 06/12/21 21:00 06/12/21 21:50 Finasteride 5 Mg Tab PO 5 mg HS FATMATA Administration Isosorbide Mononitrate 20 mg 06/13/21 09:00 06/13/21 08:06 Isosorbide Mononitrate 20 Mg Tab PO 20 mg BID@0900,1600 FATMATA Administration Lisinopril 10 mg 06/13/21 09:00 06/13/21 08:06 Lisinopril 10 Mg Tab PO 10 mg DAILY FATMATA Administration Morphine Sulfate 4 mg 06/12/21 14:50 Morphine Sulfate 4 Mg/Ml Syringe IV Q4HR PRN Severe Pain Naloxone HCl 0.2 mg 06/12/21 14:50 Naloxone 0.4 Mg/Ml 1 Ml Vial IV Q2M PRN Opioid Reversal Pantoprazole Sodium 40 mg 06/13/21 07:30 06/13/21 08:07 Pantoprazole 40 Mg Tablet PO 40 mg [id number] FATMATA Administration Propranolol HCl 10 mg 06/13/21 09:00 Propranolol 10 Mg Tab PO DAILY [facility] Tamsulosin HCl 0.4 mg 06/13/21 09:00 06/13/21 08:07 Tamsulosin 0.4 Mg Cap.Er.24h PO 0.4 mg DAILY FATMATA Administration Intake and Output 06/12/21 06/13/21 06/13/21 22:59 06:59 14:59 Output Total 1400 Balance -1400 Output: Urine 1400 Other: # Voids 1 Weight 80.739 kg 84.8 kg 06/13/21 06:50 06/13/21 06:50 Assessment and Plan Assessment: symptoms of abdominal pain, acute coronary event has been ruled out, no EKG changes and troponins negative 3 history of CAD with prior stenting of LAD and RCA Nonsustained ventricular tachycardia hypertension, poorly controlled hyperlipidemia Plan: From cardiology's perspective we'll obtain a 2-D echo with Doppler study to assess cardiac structure and function. Will increase lisinopril for better blood pressure control. COntinue to monitor for further ectopy. Unable to increase beta shayy at this time due to underlying bradycardia. If there are n o significant changes noted on the echocardiogram patient may be discharged home and follow-up in the office next week with Dr. Myers. The above dictated assessment and findings were discussed with signing physician. The impression and plan of care have been directed as dictated. Abiola Allen, Nurse Practitioner, acting as scribe for signing physician.
[2021-06-13 15:13] VITALS: BP 107/53; PULSE 56; RESP 17; TEMP 97.6
--- NOTE | 2021-06-13 16:07 | P.DS ---
Providers Date of admission: 06/12/21 14:51 Expected date of discharge: 06/13/21 Attending physician: Nayeli Michel Consults: 06/12/21 14:50 Consult Physician Routine Consulting Provider: Jayesh Zeng Consult Reason/Comments: CP Do you want consulting provider notified?: Yes Primary care physician: Nayeli Michel [place] Hospital Course: HISTORY OF PRESENT ILLNESS: This is an 86-year-old male patient of eduardo and Dr. Myers with a past medical history coronary artery disease status post PCI of the LAD and RCA, history of hypertension, hyperlipidemia BPH, neck and back surgeries for degenerative arthritis, patient was hospitalized at [facility] in November 2019 after he was admitted for increased chest pain as well as shortness of breath associated with a bradycardia at that time his troponin was mildly elevated he was seen in consultation by cardiology underwent left heart catheterization that time that showed heavily calcified triple vessel disease with a patent stented segment of the LAD and RCA as well as minimal impaired LV function with ejection fraction 50%, was recommended for the patient in time for aggressive risk factor modification and he was placed on dual antibiotic therapy in the form of baby aspirin and Plavix however the patient stopped his Plavix on his own because of increased bruising over his body, patient continues to have generalized weakness and inability to perform activities of daily living, he presented to the emergency department at [facility] today with increased chest pain associated with shortness breath, his cardiac enzymes are negative his laboratory evaluation was negative however because of the presentation and because of the prior history he was admitted to the hospital for evaluation by cardiology per Discharge diagnoses: 1. Effort angina with significant dyspnea with minimal exertion likely related to chronic CAD and chronic diastolic heart failure rule out unstable angina. 2. History of CAD post-PCI of the LAD and RCA. Last heart catheterization November 2019 showed stable disease. 3. Hypertension and hypertensive cardiovascular disease. 4. Sinus bradycardia with significant first-degree AV block 5. Hyperlipidemia. Continue Lipitor 80 mg once every day, keep LDL cholesterol 55-70. 6. Enlarged prostate 7. 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 Continue with physical therapy as needed. 8. Chronic diastolic heart failure. Patient Condition at Discharge: Stable Plan - Discharge Summary New Discharge Prescriptions: No Action Isosorbide Mononitrate [Ismo] 20 mg PO BID Atorvastatin Calcium [Lipitor] 80 mg PO DAILY Finasteride [Proscar] 5 mg PO HS Tamsulosin [Flomax] 0.4 mg PO DAILY Lisinopril [Zestril] 10 mg PO DAILY Cyanocobalamin [Vitamin B-12 Injection] See Taper SQ DIRECTED Propranolol [Inderal] 10 mg PO DAILY Aspirin EC [Ecotrin Low Dose] 81 mg PO HS Discharge Medication List Isosorbide Mononitrate [Ismo] 20 mg PO BID 03/25/14 [History] Atorvastatin Calcium [Lipitor] 80 mg PO DAILY 08/12/18 [History] Finasteride [Proscar] 5 mg PO HS 08/12/18 [History] Lisinopril [Zestril] 10 mg PO DAILY 12/07/19 [History] Tamsulosin [Flomax] 0.4 mg PO DAILY 12/07/19 [History] Aspirin EC [Ecotrin Low Dose] 81 mg PO HS 06/12/21 [History] Cyanocobalamin [Vitamin B-12 Injection] See Taper SQ DIRECTED 06/12/21 [History] Propranolol [Inderal] 10 mg PO DAILY 06/12/21 [History] Follow up Appointment(s)/Referral(s): Nayeli Michel MD [Primary Care Provider] - 1-2 days
== END 2021-06-13 18:55 | disposition home or self-care (01) ==
LOC: EC 12:28 → 3SCARD 14:51 → INTOOBSV 14:51 → 6NMEDSUR 18:25 → UNDODISIN 06-13 18:55
PROVIDERS: ADMIT Internal Medicine; ATTEND Internal Medicine
DX: I11.0 Hypertensive heart disease with heart failure (principal); I50.32 Chronic diastolic (congestive) heart failure; I25.10 Atherosclerotic heart disease of native coronary artery without angina pectoris; I44.0 Atrioventricular block, first degree; I47.2 Ventricular tachycardia; R00.1 Bradycardia, unspecified; E78.5 Hyperlipidemia, unspecified; N40.0 Benign prostatic hyperplasia without lower urinary tract symptoms; M50.30 Other cervical disc degeneration, unspecified cervical region; Z20.822 Contact with and (suspected) exposure to COVID-19; F17.210 Nicotine dependence, cigarettes, uncomplicated; R29.6 Repeated falls; G25.0 Essential tremor; I25.2 Old myocardial infarction; M19.90 Unspecified osteoarthritis, unspecified site; Z79.82 Long term (current) use of aspirin; Z79.899 Other long term (current) drug therapy; Z98.41 Cataract extraction status, right eye; Z98.42 Cataract extraction status, left eye; Z96.1 Presence of intraocular lens; Z95.5 Presence of coronary angioplasty implant and graft; Z87.01 Personal history of pneumonia (recurrent); Z82.3 Family history of stroke; Z82.49 Family history of ischemic heart disease and other diseases of the circulatory system
CPT/HCPCS: 99285; 96372; 36415; 94640; 93005; 93306; 83880; 80053 ×2; 83735; 84484; 85025 ×2; 85610; 85730; 87635; 71046; G0378 ×2; S0138; J1650; J7512

== ENCOUNTER → 2022-02-17 | Outpatient (CLI) | payer MEDICARE, OTHER ==
--- NOTE | 2022-02-17 13:29 | XR ---
EXAM TYPE: LUMBAR SPINE X RAY SERIES COMPARISON: 07/21/2016 HISTORY: Pain TECHNIQUE: 5 views are submitted. FINDINGS: Diffuse osteopenia with extensive postsurgical changes throughout the lumbosacral spine. Multilevel d egenerative disc disease seen. Mild endplate deformity L2 stable and therefore, chronic. Vascular abdoulaye cification seen. IMPRESSION: 1. Extensive postsurgical change with osteopenia and degenerative disc disease similar to the prior e xam
--- NOTE | 2022-02-17 13:30 | XR ---
EXAMINATION TYPE: XR thoracic spine 2V DATE OF EXAM: 02/17/2022 COMPARISON: NONE HISTORY: Pain TECHNIQUE: 3 views submitted FINDINGS: Postsurgical changes involving the lower thoracic spine. There is hypertrophic spurring and moderate to severe degenerative disc disease throughout the thoracic spine. Incidental note made its surgical change at the cervicothoracic junction. Diffuse osteopenia. Atherosclerotic change aorta. IMPRESSION: 1. Postsurgical change. 2. Remaining levels demonstrate moderate to severe multilevel degenerative disc disease.
== END | disposition home or self-care (01) ==
LOC: RADXRMAIN 12:46
PROVIDERS: ATTEND Internal Medicine
DX: M47.816 Spondylosis without myelopathy or radiculopathy, lumbar region (principal); M51.26 Other intervertebral disc displacement, lumbar region; M51.34 Other intervertebral disc degeneration, thoracic region
CPT/HCPCS: 72070; 72100

== ENCOUNTER 2022-02-20 14:28 | Inpatient (IN) | payer MEDICARE, OTHER ==
[2022-02-20] MEDS ORDERED: ATROPINE SULFATE 0.1 MG/ML 10ML SYRINGE IV STA (14:34)
[2022-02-20] MEDS ORDERED: PROCHLORPERAZINE INJ 10 MG/2 ML VIAL IVP STA (14:34)
[2022-02-20 14:59] LABS: Basophils # (A) 0.1 k/uL (0-0.2); Basophils % (A) 1 %; Eosinophils # (A) 0.2 k/uL (0-0.7); Eosinophils % (A) 1 %; HGB 14.2 gm/dL (13.0-17.5); Lymphocytes # (A) 4.1 k/uL (1.0-4.8); Lymphocytes % (A) 31 %; MCHC 33.1 g/dL (31.0-37.0); MCV 93.8 fL (80.0-100.0); Mean Platelet Volume 7.1; Monocytes # (A) 0.8 k/uL (0-1.0); Monocytes % (A) 6 %; Neutrophils # (A) 8.1 k/uL (1.3-7.7); Neutrophils % (A) 61 %; Platelet Count 246 k/uL (150-450); RBC 4.58 m/uL (4.30-5.90); RDW 12.9 % (11.5-15.5); WBC 13.3 k/uL (3.8-10.6)
--- NOTE | 2022-02-20 15:05 | ED ---
Nausea/Vomiting/Diarrhea HPI - General Chief complaint: Nausea/Vomiting/Diarrhea Stated complaint: Nausea vomiting Time Seen by Provider: 02/20/22 14:28 Source: patient, EMS, RN notes reviewed Mode of arrival: EMS - History of Present Illness Initial comments: 87-year-old male prior history of bradycardia and [place] 2 with sudden onset about 1 hour prior to arrival of nausea vomiting which came after an episode of feeling faint. EMS was called he was found to have bradycardia he was given Zofran which did not really help much. He denies any overt chest pain or shortness of breath. No palpitations. No recent fevers chills sweats cough or other symptoms. Per paramedics the heart rate was in the 30s. MD complaint: nausea, vomiting, other - Related Data Home Medications Medication Instructions Recorded Confirmed Isosorbide Mononitrate [Ismo] 20 mg PO BID 03/25/14 02/20/22 Atorvastatin Calcium [Lipitor] 80 mg PO DAILY 08/12/18 02/20/22 Finasteride [Proscar] 5 mg PO HS 08/12/18 02/20/22 Tamsulosin [Flomax] 0.4 mg PO DAILY 12/07/19 02/20/22 Aspirin EC [Ecotrin Low Dose] 81 mg PO HS 06/12/21 02/20/22 Propranolol [Inderal] 10 mg PO DAILY 06/12/21 02/20/22 Escitalopram [Lexapro] 5 mg PO DAILY 02/20/22 02/20/22 Furosemide [Lasix] 20 mg PO MOWEFR 02/20/22 02/20/22 Potassium Chloride [Klor-Con M20] 20 meq PO MOWEFR 02/20/22 02/20/22 lisinopriL [Zestril] 10 mg PO DAILY 02/20/22 02/20/22 methylPREDNISolone Dose Pack See Taper PO DIRECTED 02/20/22 02/20/22 [Medrol Dose Pack] Allergies Allergy/AdvReac Type Severity Reaction Status Date / Time adhesive tape Allergy pulls skin Verified 02/20/22 16:16 off adhesive dressings Allergy pulls skin Uncoded 06/12/21 15:15 off Review of Systems ROS Statement: Those systems with pertinent positive or pertinent negative responses have been documented in the HPI. ROS Other: All systems not noted in ROS Statement are negative. Past Medical History Past Medical History: Hyperlipidemia, Hypertension, Myocardial Infarction ([place]), Osteoarthritis ([place]), Pneumonia Additional Past Medical History / Comment(s): has some balance issue, uses cane when outside home, sinus problems, Last Myocardial Infarction Date:: 1993 History of Any Multi-Drug Resistant Organisms: None Reported Past Surgical History: Back Surgery, Heart Catheterization, Tonsillectomy Additional Past Surgical History / Comment(s): 2 Neck surgery, STATES HAS "PLASTIC" IN NECK, METAL IN BACK, STENT IN HEART X2, NORTH CATARACTS, Past Anesthesia/Blood Transfusion Reactions: No Reported Reaction Additional Past Anesthesia/Blood Transfusion Reaction / Comment(s): denies PONV Date of Last Stent Placement:: 2012 Past Psychological History: No Psychological Hx Reported Smoking Status: Former smoker Past Alcohol Use History: None Reported Past Drug Use History: None Reported - Past Family History Father Family Medical History: Myocardial Infarction ([place]) Additional Family Medical History / Comment(s): Several mi's, but from comp lications of pedestrain/mva-head injury. Mother Family Medical History: CVA/TIA Daughter(s) Family Medical History: Diabetes Mellitus (Patient has 2 daughters one with diabetes mellitus type 2 hypertension hyperlipidemia and other one with multiple sclerosis.) General Exam - General Exam Comments Initial Comments: Is a well-developed well-nourished awake alert oriented 4 male who was actively vomiting upon arrival. General appearance: alert, anxious, in distress Head exam: Present: atraumatic, normocephalic, normal inspection Eye exam: Present: normal appearance, PERRL, EOMI. Absent: scleral icterus, conjunctival injection, periorbital swelling ENT exam: Present: normal exam, mucous membranes moist Neck exam: Present: normal inspection, full ROM, other (No stridor JVD or bruits). Absent: tenderness, meningismus, lymphadenopathy Respiratory exam: Present: normal lung sounds bilaterally. Absent: respiratory distress, wheezes, rales, rhonchi, stridor Cardiovascular Exam: Present: regular rate, bradycardia. Absent: systolic murmur, diastolic murmur, rubs, gallop, clicks GI/Abdominal exam: Present: soft, normal bowel sounds. Absent: distended, tenderness, guarding, rebound, rigid Extremities exam: Present: normal inspection, full ROM, normal capillary refill. Absent: tenderness, pedal edema, joint swelling, calf tenderness Back exam: Present: normal inspection Neurological exam: Present: alert, oriented X3, CN II-XII intact Psychiatric exam: Present: normal affect, normal mood Skin exam: Present: warm, dry, intact, normal color. Absent: rash Course Vital Signs 02/20/22 02/20/22 02/20/22 14:30 14:46 15:00 Temperature 97.6 F Pulse Rate 35 L 42 L 44 L Respiratory 18 18 22 Rate Blood Pressure 140/57 143/65 112/70 O2 Sat by Pulse 98 99 97 Oximetry 02/20/22 02/20/22 02/20/22 15:30 16:00 16:30 Temperature Pulse Rate 43 L 40 L 42 L Respiratory 18 18 16 Rate Blood Pressure 106/55 118/52 120/56 O2 Sat by Pulse 96 96 98 Oximetry 02/20/22 02/20/22 02/20/22 17:00 17:15 18:00 Temperature 97.7 F Pulse Rate 50 L 45 L 45 L Respiratory 16 18 16 Rate Blood Pressure 150/76 154/63 150/70 O2 Sat by Pulse 100 96 98 Oximetry Medical Decision Making - Medical Decision Making Patient did have improvement of his heart rate after IV fluids and atropine. I did reevaluate patient several occasions and did discuss findings with him and his . Patient will be admitted the patient's case was discussed with Dr. Michel. Dr. Myers will be consulted also. The propanolol will also be held at this time - Lab Data Result diagrams: 02/20/22 14:41 02/20/22 14:41 Lab Results 02/20/22 02/20/22 02/20/22 Range/Units 14:41 14:41 14:41 WBC 13.3 H (3.8-10.6) k/uL RBC 4.58 (4.30-5.90) m/uL Hgb 14.2 (13.0-17.5) gm/dL Hct 43.0 (39.0-53.0) % MCV 93.8 (80.0-100.0) fL MCH 31.0 (25.0-35.0) pg MCHC 33.1 (31.0-37.0) g/dL RDW 12.9 (11.5-15.5) % Plt Count 246 (150-450) k/uL MPV 7.1 Neutrophils % 61 % Lymphocytes % 31 % Monocytes % 6 % Eosinophils % 1 % Basophils % 1 % Neutrophils # 8.1 H (1.3-7.7) k/uL Lymphocytes # 4.1 (1.0-4.8) k/uL Monocytes # 0.8 (0-1.0) k/uL Eosinophils # 0.2 (0-0.7) k/uL Basophils # 0.1 (0-0.2) k/uL PT 11.2 (9.0-12.0) sec INR 1.0 (<1.2) APTT 21.5 L (22.0-30.0) sec D-Dimer 1.03 H (<0.60) mg/L FEU Sodium 135 L (137-145) mmol/L Potassium 3.9 (3.5-5.1) mmol/L Chloride 102 (98-107) mmol/L Carbon Dioxide 20 L (22-30) mmol/L Anion Gap 13 mmol/L BUN 40 H (9-20) mg/dL Creatinine 1.03 (0.66-1.25) mg/dL Est GFR (CKD-EPI)AfAm 77 (>60 ml/min/1.73 sqM) Est GFR (CKD-EPI)NonAf 66 (>60 ml/min/1.73 sqM) Glucose 125 H (74-99) mg/dL Calcium 9.0 (8.4-10.2) mg/dL Magnesium 1.8 (1.6-2.3) mg/dL Total Bilirubin 1.3 (0.2-1.3) mg/dL AST 32 (17-59) U/L ALT 38 (4-49) U/L Alkaline Phosphatase 70 (38-126) U/L Troponin I (0.000-0.034) ng/mL Total Protein 6.0 L (6.3-8.2) g/dL Albumin 3.7 (3.5-5.0) g/dL TSH 3.140 (0.465-4.680) mIU/L 02/20/22 Range/Units 14:41 WBC (3.8-10.6) k/uL RBC (4.30-5.90) m/uL Hgb (13.0-17.5) gm/dL Hct (39.0-53.0) % MCV (80.0-100.0) fL MCH (25.0-35.0) pg MCHC (31.0-37.0) g/dL RDW (11.5-15.5) % Plt Count (150-450) k/uL MPV Neutrophils % % Lymphocytes % % Monocytes % % Eosinophils % % Basophils % % Neutrophils # (1.3-7.7) k/uL Lymphocytes # (1.0-4.8) k/uL Monocytes # (0-1.0) k/uL Eosinophils # (0-0.7) k/uL Basophils # (0-0.2) k/uL PT (9.0-12.0) sec INR (<1.2) APTT (22.0-30.0) sec D-Dimer (<0.60) mg/L FEU Sodium (137-145) mmol/L Potassium (3.5-5.1) mmol/L Chloride (98-107) mmol/L Carbon Dioxide (22-30) mmol/L Anion Gap mmol/L BUN (9-20) mg/dL Creatinine (0.66-1.25) mg/dL Est GFR (CKD-EPI)AfAm (>60 ml/min/1.73 sqM) Est GFR (CKD-EPI)NonAf (>60 ml/min/1.73 sqM) Glucose (74-99) mg/dL Calcium (8.4-10.2) mg/dL Magnesium (1.6-2.3) mg/dL Total Bilirubin (0.2-1.3) mg/dL AST (17-59) U/L ALT (4-49) U/L Alkaline Phosphatase (38-126) U/L Troponin I <0.012 (0.000-0.034) ng/mL Total Protein (6.3-8.2) g/dL Albumin (3.5-5.0) g/dL TSH (0.465-4.680) mIU/L - EKG Data -: EKG Interpreted by Tx EKG shows normal: sinus rhythm EKG Comments: Psych bradycardia with first-degree AV block rate 34 CO interval 2:30 QRS duration 116 QT/QTC 522/417 nonspecific inferior configuration - Radiology Data Radiology results: report reviewed (Imaging reviewed as well as report no acute findings), image reviewed Critical Care Time Critical Care Time: Yes Total Critical Care Time: 35 Critical Care Time: Critical care time includes initial presentation with history physical discussed with paramedics upon arrival for reevaluation patient response to therapy discuss with the patient family and multiple occasions admitting orders documentation the above discussed with the admitting physician. Disposition Clinical Impression: Symptomatic bradycardia, Nausea & vomiting, Dehydration Disposition: ADMITTED IP TO THIS [facility] Condition: Stable Referrals: Nayeli Michel MD [Primary Care Provider] - 1-2 days
[2022-02-20 15:09] LABS: Albumin 3.7 g/dL (3.5-5.0); Magnesium 1.8 mg/dL (1.6-2.3); Potassium 3.9 mmol/L (3.5-5.1); Total Bilirubin 1.3 mg/dL (0.2-1.3)
--- NOTE | 2022-02-20 15:25 | XR ---
EXAMINATION TYPE: XR chest 1V portable DATE OF EXAM: 02/20/2022 2:50 PM COMPARISON: Chest x-ray 06/12/2021, thoracic spine radiographs 02/17/2022, CT chest 01/30/2020 TECHNIQUE: XR chest 1V portable . CLINICAL INDICATION:Male, 87 years old with history of dysrhythmia; FINDINGS: Lungs/Pleura: There is no evidence of pleural effusion, focal consolidation, or pneumothorax. Increa sed lucency of the lung apices, likely sequelae of emphysema. Pulmonary vascularity: Unremarkable. Heart/mediastinum: Cardiomediastinal silhouette is unremarkable. Atherosclerotic calcifications are seen in the aorta. Musculoskeletal: No acute osseous pathology. There is lower spine fixation hardware is present. Cervi abdoulaye fixation hardware is present in the lower cervical spine. Degenerative changes of the bilateral s houlder joints are noted. IMPRESSION: 1. No acute cardiopulmonary disease/process. 2. Emphysematous changes of the upper lungs.
[2022-02-20 15:31] LABS: Prothrombin Time 11.2 sec (9.0-12.0)
[2022-02-20 15:55] LABS: Partial Thromboplastin Time 21.5 sec (22.0-30.0)
[2022-02-20] MEDS ORDERED: SODIUM CHLORIDE 0.9% 500 ML 500 ML IV STA (16:17)
--- NOTE | 2022-02-20 17:37 | CT ---
EXAMINATION TYPE: CT angio chest CT DLP: 331.3 mGycm, Automated exposure control for dose reduction was used. DATE OF EXAM: 02/20/2022 4:58 PM COMPARISON: Chest radiograph from same day. CT chest 01/30/2020. CLINICAL INDICATION:Male, 87 years old with history of Rule out Pulmonary Embolism; elevated d-dimer TECHNIQUE/CONTRAST: CTA scan of the thorax is performed with IV Contrast, patient injected with 80 mL of Isovue 370, pulm onary embolism protocol. MIP images are created and reviewed. FINDINGS: Pulmonary Artery: There is no evidence for a filling defect within the pulmonary vasculature to sugge st acute pulmonary embolism. The pulmonary artery is of normal size. Lungs/Pleura: Centrilobular emphysematous changes are redemonstrated. No focal airspace consolidation . Similar posterior left pleural thickening (series 601, image 123). No pneumothorax or pleural effus ion. Airway: Large airways are patent. Heart: Heart is within normal limits for size.. Extensive coronary artery calcifications. Vasculature: Moderate hard and soft atherosclerosis of the thoracic aorta. No acute abnormality. Mediastinum: No gross evidence of adenopathy. Musculoskeletal: Cervical fusion hardware is noted. Posterior lumbar fusion hardware with multiple la minectomy changes are noted. Advanced degenerative changes of the thoracic spine. No aggressive osseo us lesions. Soft Tissues: Unremarkable. Lower neck: No significant findings. Upper Abdomen: No significant findings. IMPRESSION: 1. No evidence of pulmonary embolism or acute cardiopulmonary process. 2. COPD changes which are similar to prior.
[2022-02-20] MEDS ORDERED: NALOXONE 0.4 MG/ML 1 ML VIAL IV PRN (18:30)
[2022-02-20] MEDS: ASPIRIN 81 MG PO SCH (22:02)
[2022-02-20] MEDS: FINASTERIDE 5 MG TAB PO SCH (22:02)
[2022-02-20] MEDS: ISOSORBIDE MONONITRATE 20 MG TAB PO SCH (22:02)
[2022-02-21] MEDS: SODIUM CHLORIDE 0.9% 1,000 ML IV SCH ×3 (05:39→22:45)
[2022-02-21] MEDS: ESCITALOPRAM 5 MG TAB PO SCH (09:31)
[2022-02-21] MEDS: lisinopriL 10 MG TAB PO SCH (09:31)
[2022-02-21] MEDS: ISOSORBIDE MONONITRATE 20 MG TAB PO SCH ×2 (09:31→22:45)
[2022-02-21] MEDS: TAMSULOSIN 0.4 MG CAP.ER.24H PO SCH (09:31)
[2022-02-21] MEDS: ATORVASTATIN 80 MG TAB PO SCH (09:31)
--- NOTE | 2022-02-21 11:19 | P.CRDCN ---
History of Present Illness Consult date: 02/21/22 History of present illness: History of Present Illness: The patient is an 87-year-old male known history of hypertension, hyperlipidemia and coronary disease who presented with symptoms of dizziness, nausea and presyncope. Yesterday at home he got up and went to his kitchen when he became nauseated and dizzy, did not have any palpitations, chest discomfort or change in his breathing. EMS found him to be bradycardic and nauseated. On arrival to the emergency room he was in sinus bradycardia but had no atrial fibrillation or pauses. He is feeling better today. His breathing is stable. He denies any chest discomfort. He has no PND, orthopnea or peripheral edema. He underwent angioplasty and stenting of his LAD in March 2019 using a 2.75 x 8 mm stent, subsequently because of his recurrent symptoms he underwent repeat cardiac catheterization in November 2019 and was found to have calcified coronary arteries with no evidence of in-stent restenosis with mild to moderate triple-vessel disease. His left ventricle systolic function has been normal in the past. His troponin in the emergency was normal and he had no evidence of arrhythmia since admission. His coronary risk factors are positive for hypertension and hyperlipidemia, he is a nondiabetic, nonsmoker. He had a CT angiogram that showed no evidence of pulmonary embolism Medications: Aspirin once a day, Lexapro 5 mg daily, isosorbide 20 mg twice a day, Inderal 10 mg daily, Flomax, Zestril 10 mg daily, Lasix 20 mg and potassium 20 mEq Review of Systems: Respiratory: He has mild chronic dyspnea on exertion, unchanged GI: He had nausea yesterday but no vomiting he denies any abdominal pain. : No hematuria or dysuria. Nervous System: He uses his cane for ambulation Physical Examination: 87-year-old male, alert and oriented no apparent distress ,Blood pressure 120/70, Heart rate 50 Head: Normocephalic. Eyes: Sclerae nonicteric. Neck: Good carotid upstroke, transmitted murmur, no jugular venous distention. Lungs: Clear to auscultation. Heart: Regular rate and rhythm, S1-S2, no S3, no rub. Systolic ejection murmur 3/6 at the base with a holosystolic murmur 2/6 at the apex. Abdomen: Soft nontender, positive bowel sounds no organomegaly. Extremities: No edema, intact distal pulses. Labs: Potassium 3.9, BUN 40, creatinine 1.03, hemoglobin 14.2, troponin less than 0.012 EKG: Sinus bradycardia with evidence of old inferolateral wall myocardial infarction and no acute ST segment changes Impression: 1. Symptoms of dizziness, nausea was sinus bradycardia. His symptoms could be exacerbated by his nausea and the beta shayy 2. History of CAD and prior stenting with no evidence to suggest acute coronary syndrome 3. History of hypertension 4. Aortic valve murmur 5. History of hyperlipidemia Plan: 1. Stop beta shayy 2. Obtain an echocardiogram with Doppler 3. And follow rhythm after ambulation, no clear evidence for permanent pacemaker at this time 4. Follow her renal functions 5. Depending on his progress further recommendations will be made. Thank you f or this consult we will follow with you. 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 has 1 pet dog. pt uses cane when outdoors, drives. no home care services, . pt served in [email or web address] from [phone]. worked for [employer] from 1962 to 1991. Smoking Status: Former smoker Past Alcohol Use History: None Reported Additional Past Alcohol Use History / Comment(s): QUIT SMOKING IN 1989, SMOKED SINCE AGE 18 (1952) SMOKED 1 PPD, past heavy etoh but quit 1986. Past Drug Use History: None Reported - Past Family History Father Family Medical History: Myocardial Infarction ([place]) Additional Family Medical History / Comment(s): Several mi's, but from complications of pedestrain/mva-head injury. Mother Family Medical History: CVA/TIA Daughter(s) Family Medical History: Diabetes Mellitus Medications and Allergies Home Medications Medication Instructions Recorded Confirmed Type Isosorbide Mononitrate [Ismo] 20 mg PO BID 03/25/14 02/20/22 History Atorvastatin Calcium [Lipitor] 80 mg PO DAILY 08/12/18 02/20/22 History Finasteride [Proscar] 5 mg PO HS 08/12/18 02/20/22 History Tamsulosin [Flomax] 0.4 mg PO DAILY 12/07/19 02/20/22 History Aspirin EC [Ecotrin Low Dose] 81 mg PO HS 06/12/21 02/20/22 History Propranolol [Inderal] 10 mg PO DAILY 06/12/21 02/20/22 History Escitalopram [Lexapro] 5 mg PO DAILY 02/20/22 02/20/22 History Furosemide [Lasix] 20 mg PO MOWEFR 02/20/22 02/20/22 History Potassium Chloride [Klor-Con M20] 20 meq PO MOWEFR 02/20/22 02/20/22 History lisinopriL [Zestril] 10 mg PO DAILY 02/20/22 02/20/22 History methylPREDNISolone Dose Pack See Taper PO DIRECTED 02/20/22 02/20/22 History [Medrol Dose Pack] Allergies Allergy/AdvReac Type Severity Reaction Status Date / Time adhesive tape Allergy pulls skin Verified 02/20/22 16:16 off adhesive dressings Allergy pulls skin Uncoded 06/12/21 15:15 off Physical Exam Vitals: Vital Signs Temp Pulse Pulse Resp BP BP BP 02/21/22 09:49 97.6 F 50 L 17 113/76 02/21/22 04:59 98.4 F 56 L 18 152/61 02/21/22 02:00 52 L 17 02/21/22 00:00 98.1 F 53 L 18 146/58 02/20/22 22:04 97.8 F 52 L 17 176/66 02/20/22 20:00 98.0 F 48 L 148/70 02/20/22 18:29 97.8 F 46 L 18 139/58 02/20/22 18:00 45 L 16 150/70 02/20/22 17:15 97.7 F 45 L 18 154/63 02/20/22 17:00 50 L 16 150/76 02/20/22 16:30 42 L 16 120/56 02/20/22 16:00 40 L 18 118/52 02/20/22 15:30 43 L 18 106/55 02/20/22 15:00 44 L 22 112/70 02/20/22 14:46 42 L 18 143/65 02/20/22 14:30 97.6 F 35 L 18 140/57 BP BP Pulse Ox 02/21/22 09:49 174/86 121/79 97 02/21/22 04:59 97 02/21/22 02:00 02/21/22 00:00 96 02/20/22 22:04 97 02/20/22 20:00 02/20/22 18:29 96 02/20/22 18:00 98 02/20/22 17:15 96 02/20/22 17:00 100 02/20/22 16:30 98 02/20/22 16:00 96 02/20/22 15:30 96 02/20/22 15:00 97 02/20/22 14:46 99 02/20/22 14:30 98 Intake and Output 02/20/22 02/21/22 02/21/22 22:59 06:59 14:59 Intake Total 195 750 420 Output Total 150 300 Balance 45 450 420 Intake: Intake, IV Titration 75 750 Amount Sodium Chloride 0.9% 1, 75 000 ml @ 75 mls/hr IV . [id number] FATMATA Rx#:[id number] Sodium Chloride 0.9% 500 750 ml 500 ml @ 999 mls/hr IV .Q31M STA Rx#:[id number] Oral 120 420 Output: Urine 150 300 Other: # Voids 1 Weight 76.204 kg 72.2 kg Results 02/20/22 14:41 02/20/22 14:41 Cardiac Enzymes 02/20/22 02/20/22 Range/Units 14:41 14:41 AST 32 (17-59) U/L Troponin I <0.012 (0.000-0.034) ng/mL Coagulation 02/20/22 Range/Units 14:41 PT 11.2 (9.0-12.0) sec APTT 21.5 L (22.0-30.0) sec CBC 02/20/22 Range/Units 14:41 WBC 13.3 H (3.8-10.6) k/uL RBC 4.58 (4.30-5.90) m/uL Hgb 14.2 (13.0-17.5) gm/dL Hct 43.0 (39.0-53.0) % Plt Count 246 (150-450) k/uL Comprehensive Metabolic Panel 02/20/22 Range/Units 14:41 Sodium 135 L (137-145) mmol/L Potassium 3.9 (3.5-5.1) mmol/L Chloride 102 (98-107) mmol/L Carbon Dioxide 20 L (22-30) mmol/L BUN 40 H (9-20) mg/dL Creatinine 1.03 (0.66-1.25) mg/dL Glucose 125 H (74-99) mg/dL Calcium 9.0 (8.4-10.2) mg/dL AST 32 (17-59) U/L ALT 38 (4-49) U/L Alkaline Phosphatase 70 (38-126) U/L Total Protein 6.0 L (6.3-8.2) g/dL Albumin 3.7 (3.5-5.0) g/dL Current Medications Generic Name Dose Route Start Last Admin Trade Name Freq PRN Reason Stop Dose Admin Aspirin 81 mg 02/20/22 21:00 02/20/22 22:02 Aspirin 81 Mg PO 81 mg HS FATMATA Administration Atorvastatin Calcium 80 mg 02/21/22 09:00 02/21/22 09:31 Atorvastatin 80 Mg Tab PO 80 mg DAILY FATMATA Administration Escitalopram Oxalate 5 mg 02/21/22 09:00 02/21/22 09:31 Escitalopram 5 Mg Tab PO 5 mg DAILY FATMATA Administration Finasteride 5 mg 02/20/22 21:00 02/20/22 22:02 Finasteride 5 Mg Tab PO 5 mg HS FATMATA Administration Furosemide 20 mg 02/22/22 09:00 Furosemide 20 Mg Tab PO MOWEFR FATMATA Sodium Chloride 1,000 mls @ 75 mls/hr 02/20/22 18:30 02/21/22 05:39 Saline 0.9% IV Not Given .[id number] FATMATA Isosorbide Mononitrate 20 mg 02/20/22 21:00 02/21/22 09:31 Isosorbide Mononitrate 20 Mg Tab PO 20 mg BID FATMATA Administration Lisinopril 10 mg 02/21/22 09:00 02/21/22 09:31 Lisinopril 10 Mg Tab PO 10 mg DAILY FATMATA Administration Naloxone HCl 0.2 mg 02/20/22 18:30 Naloxone 0.4 Mg/Ml 1 Ml Vial IV Q2M PRN Opioid Reversal Potassium Chloride 20 meq 02/22/22 09:00 Potassium Chloride Er 20 Meq Tab.Er PO MOWEFR FATMATA Tamsulosin HCl 0.4 mg 02/21/22 09:00 02/21/22 09:31 Tamsulosin 0.4 Mg Cap.Er.24h PO 0.4 mg DAILY FATMATA Administration Intake and Output 02/20/22 02/21/22 02/21/22 22:59 06:59 14:59 Intake Total 195 750 420 Output Total 150 300 Balance 45 450 420 Intake: Intake, IV Titration 75 750 Amount Sodium Chloride 0.9% 1, 75 000 ml @ 75 mls/hr IV . [id number] FATMATA Rx#:[id number] Sodium Chloride 0.9% 500 750 ml 500 ml @ 999 mls/hr IV .Q31M STA Rx#:[id number] Oral 120 420 Output: Urine 150 300 Other: # Voids 1 Weight 76.204 kg 72.2 kg 02/20/22 14:41 02/20/22 14:41
[2022-02-21 12:23] LABS: Basophils % (A) 0 %; Eosinophils # (A) 0.1 k/uL (0-0.7); Eosinophils % (A) 1 %; HCT 41.4 % (39.0-53.0); HGB 14.2 gm/dL (13.0-17.5); Lymphocytes # (A) 3.5 k/uL (1.0-4.8); Lymphocytes % (A) 27 %; MCH 32.2 pg (25.0-35.0); MCHC 34.3 g/dL (31.0-37.0); MCV 93.7 fL (80.0-100.0); Mean Platelet Volume 7.4; Monocytes # (A) 0.8 k/uL (0-1.0); Monocytes % (A) 6 %; Neutrophils # (A) 8.4 k/uL (1.3-7.7); Neutrophils % (A) 65 %; Platelet Count 209 k/uL (150-450); RBC 4.42 m/uL (4.30-5.90); RDW 12.8 % (11.5-15.5)
[2022-02-21 12:36] LABS: Calcium 8.4 mg/dL (8.4-10.2)
[2022-02-21] MEDS: ASPIRIN 81 MG PO SCH (22:45)
[2022-02-21] MEDS: FINASTERIDE 5 MG TAB PO SCH (22:45)
--- NOTE | 2022-02-22 00:27 | P.HPIM ---
History of Present Illness H&P Date: 02/21/22 Chief Complaint: Dizziness Patient is a 87-year-old male with a known history of hypertension, hyperlipidemia, osteoarthritis, history of VT x2 s/p stent placement in 2019 And BPH presents to ER with complaints of dizziness and feeling faint. Evidently patient was in the kitchen and trying to get something and suddenly felt dizzy and nauseated and felt like passing out. Denies any loss of consciousness. EMS was called and patient was brought to the hospital. Patient was found to be bradycardic with heart rate in 30s by EMS. Otherwise patient denies any complaints of chest discomfort. No palpitations. Denies any headache. Patient was nauseated and was given Zofran by EMS. No episodes of vomiting.. Chest x-ray showed no acute cardiopulmonary disease/process. Emphysematous changes of the upper lungs. Patient is Medrol Dosepak at home. Laboratory test showed WBC 13.3 hemoglobin 14.2 and platelets 246 D-dimer level is 1.03 Sodium 132 potassium 3.8 chloride 102 bicarb is 20 BUN 14 creatinine 1.03 Blood sugar is 125 liver enzymes are not elevated troponin x1 and TSH level is 3.14 Review of Systems Constitutional: Patient denies any fever or chills . Generalized weakness. Abdomen: Patient denied any nausea or vomiting or abd. pain Cardiovascular: Patient denies any chest pain or short of breath no palpitations. Respiratory: patient denied any cough is from production. No shortness of breath Neurologic: Patient denied any numbness or tingling headache. Musculoskeletal: Patient denies any complaints of joint swelling or deformity. Skin: Negative Psychiatric: Negative Endocrine: No heat or cold intolerance. No recent weight gain. Genitourinary: No dysuria or hematuria. All other 14 point ROS negative except the above Past Medical History Past Medical History: Hyperlipidemia, Hypertension, Myocardial Infarction ([place]), Osteoarthritis (OA), Pneumonia Additional Past Medical History / Comment(s): has some balance issue, uses cane when outside home, sinus problems, Last Myocardial Infarction Date:: 1993 History of Any Multi-Drug Resistant Organisms: None Reported Past Surgical History: Back Surgery, Heart Catheterization, Tonsillectomy Additional Past Surgical History / Comment(s): 2 Neck surgery, 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 has 1 pet dog. pt uses cane when outdoors, drives. no home care services, . pt served in [employer] from [id number]. worked for [employer] from 1962 to 1991. Smoking Status: Former smoker Past Alcohol Use History: None Reported Additional Past Alcohol Use History / Comment(s): QUIT SMOKING IN 1989, SMOKED SINCE AGE 18 (1952) SMOKED 1 PPD, past heavy etoh but quit 1986. Past Drug Use History: None Reported - Past Family History Father Family Medical History: Myocardial Infarction ([place]) Additional Family Medical History / Comment(s): Several mi's, but from complications of pedestrain/mva-head injury. Mother Family Medical History: CVA/TIA Daughter(s) Family Medical History: Diabetes Mellitus Medications and Allergies Home Medications Medication Instructions Recorded Confirmed Type Isosorbide Mononitrate [Ismo] 20 mg PO BID 03/25/14 02/20/22 History Atorvastatin Calcium [Lipitor] 80 mg PO DAILY 08/12/18 02/20/22 History Finasteride [Proscar] 5 mg PO HS 08/12/18 02/20/22 History Tamsulosin [Flomax] 0.4 mg PO DAILY 12/07/19 02/20/22 History Aspirin EC [Ecotrin Low Dose] 81 mg PO HS 06/12/21 02/20/22 History Propranolol [Inderal] 10 mg PO DAILY 06/12/21 02/20/22 History Escitalopram [Lexapro] 5 mg PO DAILY 02/20/22 02/20/22 History Furosemide [Lasix] 20 mg PO MOWEFR 02/20/22 02/20/22 History Potassium Chloride [Klor-Con M20] 20 meq PO MOWEFR 02/20/22 02/20/22 History lisinopriL [Zestril] 10 mg PO DAILY 02/20/22 02/20/22 History methylPREDNISolone Dose Pack See Taper PO DIRECTED 02/20/22 02/20/22 History [Medrol Dose Pack] Allergies Allergy/AdvReac Type Severity Reaction Status Date / Time adhesive tape Allergy pulls skin Verified 02/20/22 16:16 off adhesive dressings Allergy pulls skin Uncoded 06/12/21 15:15 off Physical Exam Vitals: Vital Signs Temp Pulse Pulse Resp BP BP BP 02/21/22 09:49 97.6 F 50 L 17 113/76 02/21/22 04:59 98.4 F 56 L 18 152/61 02/21/22 02:00 52 L 17 02/21/22 00:00 98.1 F 53 L 18 146/58 02/20/22 22:04 97.8 F 52 L 17 176/66 02/20/22 20:00 98.0 F 48 L 148/70 02/20/22 18:29 97.8 F 46 L 18 139/58 02/20/22 18:00 45 L 16 150/70 02/20/22 17:15 97.7 F 45 L 18 154/63 02/20/22 17:00 50 L 16 150/76 02/20/22 16:30 42 L 16 120/56 02/20/22 16:00 40 L 18 118/52 02/20/22 15:30 43 L 18 106/55 02/20/22 15:00 44 L 22 112/70 02/20/22 14:46 42 L 18 143/65 02/20/22 14:30 97.6 F 35 L 18 140/57 BP BP Pulse Ox 02/21/22 09:49 174/86 121/79 97 02/21/22 04:59 97 02/21/22 02:00 02/21/22 00:00 96 02/20/22 22:04 97 02/20/22 20:00 02/20/22 18:29 96 02/20/22 18:00 98 02/20/22 17:15 96 02/20/22 17:00 100 02/20/22 16:30 98 02/20/22 16:00 96 02/20/22 15:30 96 02/20/22 15:00 97 02/20/22 14:46 99 02/20/22 14:30 98 Intake and Output 02/20/22 02/21/22 02/21/22 22:59 06:59 14:59 Intake Total 195 750 420 Output Total 150 300 Balance 45 450 420 Intake: Intake, IV Titration 75 750 Amount Sodium Chloride 0.9% 1, 75 000 ml @ 75 mls/hr IV . [id number] FATMATA Rx#:[id number] Sodium Chloride 0.9% 500 750 ml 500 ml @ 999 mls/hr IV .Q31M STA Rx#:[id number] Oral 120 420 Output: Urine 150 300 Other: # Voids 1 Weight 76.204 kg 72.2 kg PHYSICAL EXAMINATION: Patient is lying in the bed comfortably, no acute distress, awake alert and oriented.. HEENT: Normocephalic. Neck is supple. Pupils reactive. Nostrils clear. Oral cavity is moist. Neck reveals no JVD, carotid bruits, or thyromegaly. CHEST EXAMINATION: Trachea is central. Symmetrical expansion. Lung tom clear to auscultation and percussion. CARDIAC: Normal S1, S2 with no gallops. + systolic murmur ABDOMEN: Soft. Bowel sounds present. Nontender. No organomegaly. No abdominal bruits. Extremities: reveal no edema. No clubbing or cyanosis Neurologically awake, alert, oriented x3 with well-coordinated movements. No focal deficits noted Skin: No rash or skin lesions. Psychiatric: Coperative. Nonsuicidal, Musculoskeletal: No joint swelling or deformity. Normal range of motion. Results CBC & Chem 7: 02/21/22 12:11 02/21/22 12:11 Labs: Abnormal Lab Results - Last 24 Hours (Table) 02/20/22 02/20/22 02/20/22 Range/Units 14:41 14:41 14:41 WBC 13.3 H (3.8-10.6) k/uL Neutrophils # 8.1 H (1.3-7.7) k/uL APTT 21.5 L (22.0-30.0) sec D-Dimer 1.03 H (<0.60) mg/L FEU Sodium 135 L (137-145) mmol/L Carbon Dioxide 20 L (22-30) mmol/L BUN 40 H (9-20) mg/dL Glucose 125 H (74-99) mg/dL Total Protein 6.0 L (6.3-8.2) g/dL Thrombosis Risk Factor Assmnt - DVT/VTE Prophylaxis DVT/VTE Prophylaxis: Pharmacologic Prophylaxis ordered - Choose All That Apply Any of the Below Risk Factors Present?: No Each Risk Factor Represents 3 Points: Age 75 years or older Other congenital or acquired thrombophilia - If yes, enter type in comment: No Thrombosis Risk Factor Assessment Total Risk Factor Score: 3 Thrombosis Risk Factor Assessment Level: Moderate Risk Assessment and Plan Assessment: Symptomatic bradycardia with dizziness and near syncopal episode with heart rate of 30s. Patient is on Inderal 10 mg daily at home. Leukocytosis likely due to recent steroid use and prerenal azotemia as well Mild hypovolemic hyponatremia Coronary artery disease with history of stent placement Hypertension Hyperlipidemia Osteoarthritis Previous history of smoking DVT prophylax with heparin subcu Plan: Patient admitted on telemetry monitoring. Inderal and Lasix is on hold. Patient is being continued on gentle IV hydration.Orthostatic vitals. 2D echocardiogram was ordered. Cardiology is on board. Assessing for pacemaker placement. Continue to follow closely. Follow-up CBC and BMP tomorrow Time with Patient: Greater than 30
[2022-02-22] MEDS: FAMOTIDINE 20 MG TAB PO SCH ×2 (02:53→08:32)
[2022-02-22 07:17] LABS: Basophils # (A) 0.1 k/uL (0-0.2); Basophils % (A) 0 %; Eosinophils # (A) 0.2 k/uL (0-0.7); Eosinophils % (A) 1 %; HCT 44.2 % (39.0-53.0); HGB 14.3 gm/dL (13.0-17.5); Lymphocytes # (A) 3.9 k/uL (1.0-4.8); Lymphocytes % (A) 32 %; MCH 30.8 pg (25.0-35.0); MCHC 32.4 g/dL (31.0-37.0); MCV 95.1 fL (80.0-100.0); Mean Platelet Volume 7.3; Monocytes # (A) 0.8 k/uL (0-1.0); Monocytes % (A) 7 %; Neutrophils # (A) 6.9 k/uL (1.3-7.7); Neutrophils % (A) 58 %; Platelet Count 225 k/uL (150-450); RBC 4.65 m/uL (4.30-5.90); RDW 12.9 % (11.5-15.5); WBC 11.9 k/uL (3.8-10.6)
[2022-02-22 07:30] LABS: Calcium 8.5 mg/dL (8.4-10.2); Potassium 4.1 mmol/L (3.5-5.1)
[2022-02-22] MEDS: TAMSULOSIN 0.4 MG CAP.ER.24H PO SCH (08:32)
[2022-02-22] MEDS: ESCITALOPRAM 5 MG TAB PO SCH (08:32)
[2022-02-22] MEDS: lisinopriL 10 MG TAB PO SCH (08:32)
[2022-02-22] MEDS: ISOSORBIDE MONONITRATE 20 MG TAB PO SCH (08:32)
[2022-02-22] MEDS: ATORVASTATIN 80 MG TAB PO SCH (08:32)
[2022-02-22] MEDS ORDERED: POTASSIUM CHLORIDE ER 20 MEQ TAB.ER PO SCH (09:00)
[2022-02-22] MEDS ORDERED: FUROSEMIDE 20 MG TAB PO SCH (09:00)
--- NOTE | 2022-02-22 10:34 | CA ---
Transthoracic Echo Report Name: Ruiz Bright Age: 87 Gender: M : 1935 Exam Date: 02/22/2022 08:51 Exam Location: [facility] Ht (in): 60 Wt (lb): 155 Ordering Physician: Hamilton Myers MD ([id number]) Attending/Referring Phys: Anodizer Marylou Flanagan RDCS Procedure CPT: Indications: CAD Cardiac Hx: Technical Quality: Contrast 1: Total Dose (mL): Contrast 2: Total Dose (mL): MEASUREMENTS (Male / Female) Normal Values 2D ECHO LV Diastolic Diameter PLAX 4.6 cm 4.2 - 5.9 / 3.9 - 5.3 cm LV Systolic Diameter PLAX 3.8 cm IVS Diastolic Thickness 1.2 cm 0.6 - 1.0 / 0.6 - 0.9 cm LVPW Diastolic Thickness 1.7 cm 0.6 - 1.0 / 0.6 - 0.9 cm LV Relative Wall Thickness 0.6 RV Internal Dim ED PLAX 3.4 cm LA Systolic Diameter LX 3.0 cm 3.0 - 4.0 / 2.7 - 3.8 cm M-MODE Aortic Root Diameter MM 2.4 cm LA Systolic Diameter MM 3.9 cm LA Ao Ratio MM 1.6 MV E Point Septal Separation 0.5 cm DOPPLER AV Peak Velocity 305.6 cm/s AV Peak Gradient 37.4 mmHg AV Mean Velocity 218.1 cm/s AV Mean Gradient 22.7 mmHg AV Velocity Time Integral 62.4 cm LVOT Peak Velocity 108.6 cm/s LVOT Peak Gradient 4.7 mmHg MV Area PHT 2.1 cm??? Mitral E Point Velocity 59.4 cm/s Mitral A Point Velocity 145.7 cm/s Mitral E to A Ratio 0.4 MV Deceleration Time 354.1 ms MV E' Velocity 4.0 cm/s Mitral E to MV E' Ratio 14.8 TR Peak Velocity 236.0 cm/s TR Peak Gradient 22.3 mmHg Right Ventricular Systolic Press 27.3 mmHg FINDINGS Left Ventricle Left ventricular ejection fraction is estimated at 50-55%. Mildly increased left ventricular wall thickness. Right Ventricle Normal right ventricular size and function. Right Atrium Normal right atrial size. Left Atrium Normal left atrial size. Mitral Valve Mild mitral regurgitation. Aortic Valve Moderate aortic stenosis with a peak gradient of 39mmHg and a mean gradient of 23 mmHg. Tricuspid Valve Structurally normal tricuspid valve. Pulmonic Valve Structurally normal pulmonic valve. Pericardium Normal pericardium. Aorta Aortic root and proximal ascending aorta not well visualized. CONCLUSIONS Normal left ventricular dimension and systolic function Moderate aortic stenosis Previewed by: Dr. Baron Peñaloza MD (Electronically Signed) Final Date: 22 February 2022 10:33
[2022-02-22 10:49] VITALS: TEMP 98.3
--- NOTE | 2022-02-22 11:47 | P.PN ---
Subjective History of Present Illness: The patient is an 87-year-old male known history of hypertension, hyperlipidemia and coronary disease who presented with symptoms of dizziness, nausea and presyncope. Yesterday at home he got up and went to his kitchen when he became nauseated and dizzy, did not have any palpitations, chest discomfort or change in his breathing. EMS found him to be bradycardic and nauseated. On arrival to the emergency room he was in sinus bradycardia but had no atrial fibrillation or pauses. He is feeling better today. His breathing is stable. He denies any chest discomfort. He has no PND, orthopnea or peripheral edema. He underwent angioplasty and stenting of his LAD in March 2019 using a 2.75 x 8 mm stent, subsequently because of his recurrent symptoms he underwent repeat cardiac catheterization in November 2019 and was found to have calcified coronary arteries with no evidence of in-stent restenosis with mild to moderate triple-vessel disease. His left ventricle systolic function has been normal in the past. His troponin in the emergency was normal and he had no evidence of arrhythmia since admission. His coronary risk factors are positive for hypertension and hyperlipidemia, he is a nondiabetic, nonsmoker. He had a CT angiogram that showed no evidence of pulmonary embolism Medications: Aspirin once a day, Lexapro 5 mg daily, isosorbide 20 mg twice a day, Inderal 10 mg daily, Flomax, Zestril 10 mg daily, Lasix 20 mg and potassium 20 mEq 02/22 Patient seen and examined. Patient states he feels better without any further nausea. Heart rates in the 50s mainly up in the 60s and 70s. Remains in sinus rhythm. Denies any lightheadedness or dizziness. Echocardiogram performed which shows EF 50-55% with moderate aortic stenosis. Physical Examination: Vitals reviewed Head: Normocephalic. Eyes: Sclerae nonicteric. Neck: Good carotid upstroke, transmitted murmur, no jugular venous distention. Lungs: Clear to auscultation. Heart: Regular rate and rhythm, S1-S2, no S3, no rub. Systolic ejection murmur 3/6 at the base with a holosystolic murmur 2/6 at the apex. Abdomen: Soft nontender, positive bowel sounds no organomegaly. Extremities: No edema, intact distal pulses. Impression: 1. Symptoms of dizziness, nausea with sinus bradycardia. His symptoms could be exacerbated by his nausea and the beta shayy 2. History of CAD and prior stenting with no evidence to suggest acute coronary syndrome 3. History of hypertension 4. Aortic stenosis, moderate 5. History of hyperlipidemia Plan: Patient appears to be doing better off of the beta shayy and no indication for permanent pacemaker. Echo reveals preserved EF 50-55% with only moderate aortic stenosis which should not be causing his symptoms. Appears stable for discharge home with outpatient monitor off of the beta shayy. Objective - Vital Signs Vital signs: Vital Signs Temp 98.3 F 02/22/22 08:00 Pulse 75 02/22/22 08:00 Resp 18 02/22/22 08:00 BP 170/76 02/22/22 08:00 Pulse Ox 95 02/22/22 08:00 FiO2 Intake & Output 02/21/22 02/22/22 02/22/22 18:59 06:59 18:59 Intake Total 1140 180 Balance 1140 180 Intake: Oral 1140 180 Other: # Voids 1 3 1 - Labs CBC & Chem 7: 02/22/22 06:37 02/22/22 06:37 Labs: Abnormal Lab Results - Last 24 Hours (Table) 02/21/22 02/21/22 02/22/22 Range/Units 12:11 12:11 06:37 WBC 13.0 H (3.8-10.6) k/uL Neutrophils # 8.4 H (1.3-7.7) k/uL Chloride 108 H (98-107) mmol/L BUN 32 H 26 H (9-20) mg/dL Glucose 101 H (74-99) mg/dL 02/22/22 Range/Units 06:37 WBC 11.9 H (3.8-10.6) k/uL Neutrophils # (1.3-7.7) k/uL Chloride (98-107) mmol/L BUN (9-20) mg/dL Glucose (74-99) mg/dL
--- NOTE | 2022-02-22 11:54 | P.DS ---
Providers Date of admission: 02/20/22 18:30 Expected date of discharge: 02/22/22 Attending physician: Nayeli Michel Consults: 02/20/22 18:30 Consult Physician Urgent Consulting Provider: Hamilton Myers Consult Reason/Comments: Symptomatic bradycardia Do you want consulting provider notified?: Already Contacted Primary care physician: Nayeli Michel [facility] Course: HISTORY OF PRESENT ILLNESS Patient is a 87-year-old male with a known history of hypertension, hyperlipidemia, osteoarthritis, history of MT x2 s/p stent placement in 2019 And BPH presents to ER with complaints of dizziness and feeling faint. Evidently patient was in the kitchen and trying to get something and suddenly felt dizzy and nauseated and felt like passing out. Denies any loss of consciousness. EMS was called and patient was brought to the hospital. Patient was found to be bradycardic with heart rate in 30s by EMS. Otherwise patient denies any complaints of chest discomfort. No palpitations. Denies any headache. Patient was nauseated and was given Zofran by EMS. No episodes of vomiting.. Chest x-ray showed no acute cardiopulmonary disease/process. Emphysematous changes of the upper lungs. Patient is Medrol Dosepak at home. Laboratory test showed WBC 13.3 hemoglobin 14.2 and platelets 246 D-dimer level is 1.03 Sodium 132 potassium 3.8 chloride 102 bicarb is 20 BUN 14 creatinine 1.03 Blood sugar is 125 liver enzymes are not elevated troponin x1 and TSH level is 3.14 01/22: Patient has been seen by cardiology for sinus bradycardia along with symptoms of dizziness and nausea. Symptoms could be exacerbated by nausea and beta shayy. Beta shayy was discontinued. No clear evidence for permanent pacemaker. Overnight, heart rate was running mostly in the 50s, blood pressure 167/61, pulse ox 94% on room air. Orthostatic vital signs were negative. Patient states that he is feeling great. He is expecting to go home today. Propranolol has been on hold and will remain on hold at discharge. Laboratory studies reveal WBC 11.9, hemoglobin 14.3 and platelet count 225. Echocardiogram revealed EF 50-55%, moderate aortic stenosis. Patient has been seen by cardiology this morning clear for discharge. Patient will be discharged home today in stable condition. DISCHARGE DIAGNOSES Symptomatic bradycardia with dizziness and near syncopal episode with heart rate of 30s. Leukocytosis likely due to recent steroid use and prerenal azotemia as well Mild hypovolemic hyponatremia Coronary artery disease with history of stent placement Hypertension Hyperlipidemia Osteoarthritis, generalized Previous history of smoking DISCHARGE PLAN Home. Greater than 35 minutes was utilized and coordinating patient's discharge. Impression and plan of care have been directed as dictated by the signing physician. Ingrid Benitez nurse practitioner acting as scribe for signing physician. Patient Condition at Discharge: Good Plan - Discharge Summary Discharge Rx Participant: No New Discharge Prescriptions: Continue Isosorbide Mononitrate [Ismo] 20 mg PO BID Atorvastatin Calcium [Lipitor] 80 mg PO DAILY Finasteride [Proscar] 5 mg PO HS Tamsulosin [Flomax] 0.4 mg PO DAILY methylPREDNISolone Dose Pack [Medrol Dose Pack] See Taper PO DIRECTED Furosemide [Lasix] 20 mg PO MOWEFR lisinopriL [Zestril] 10 mg PO DAILY Aspirin EC [Ecotrin Low Dose] 81 mg PO HS Potassium Chloride [Klor-Con M20] 20 meq PO MOWEFR Escitalopram [Lexapro] 5 mg PO DAILY Discontinued Propranolol [Inderal] 10 mg PO DAILY Discharge Medication List Isosorbide Mononitrate [Ismo] 20 mg PO BID 03/25/14 [History] Atorvastatin Calcium [Lipitor] 80 mg PO DAILY 08/12/18 [History] Finasteride [Proscar] 5 mg PO HS 08/12/18 [History] Tamsulosin [Flomax] 0.4 mg PO DAILY 12/07/19 [History] Aspirin EC [Ecotrin Low Dose] 81 mg PO HS 06/12/21 [History] Escitalopram [Lexapro] 5 mg PO DAILY 02/20/22 [History] Furosemide [Lasix] 20 mg PO MOWEFR 02/20/22 [History] Potassium Chloride [Klor-Con M20] 20 meq PO MOWEFR 02/20/22 [History] lisinopriL [Zestril] 10 mg PO DAILY 02/20/22 [History] methylPREDNISolone Dose Pack [Medrol Dose Pack] See Taper PO DIRECTED 02/20/22 [History] Follow up Appointment(s)/Referral(s): Nayeli Michel MD [Primary Care Provider] - 1 Week [facility] [Provider Group] - 1 Week Discharge Disposition: HOME SELF-CARE
[2022-02-22 13:37] VITALS: BP 124/66; PULSE 81; RESP 16
== END 2022-02-22 14:54 | disposition home or self-care (01) | DRG 309 ==
LOC: EC 14:28 → 3SCARD 18:30
PROVIDERS: ADMIT Internal Medicine; ATTEND Internal Medicine
DX: R00.1 Bradycardia, unspecified (principal); E87.1 Hypo-osmolality and hyponatremia; R55 Syncope and collapse; E78.5 Hyperlipidemia, unspecified; E86.0 Dehydration; T44.7X5A Adverse effect of beta-adrenoreceptor antagonists, initial encounter; I10 Essential (primary) hypertension; I25.10 Atherosclerotic heart disease of native coronary artery without angina pectoris; N40.0 Benign prostatic hyperplasia without lower urinary tract symptoms; T38.0X5A Adverse effect of glucocorticoids and synthetic analogues, initial encounter; D72.829 Elevated white blood cell count, unspecified; E86.1 Hypovolemia; R26.81 Unsteadiness on feet; I44.0 Atrioventricular block, first degree; M15.9 Polyosteoarthritis, unspecified; I35.0 Nonrheumatic aortic (valve) stenosis; Z66 Do not resuscitate; R79.89 Other specified abnormal findings of blood chemistry; Z91.048 Other nonmedicinal substance allergy status; Z87.891 Personal history of nicotine dependence; Z95.5 Presence of coronary angioplasty implant and graft; Z98.42 Cataract extraction status, left eye; Z98.41 Cataract extraction status, right eye; I25.2 Old myocardial infarction; Z79.899 Other long term (current) drug therapy; Z82.3 Family history of stroke; Z82.49 Family history of ischemic heart disease and other diseases of the circulatory system; Z83.3 Family history of diabetes mellitus
CPT/HCPCS: 36415; 71045; 71275; 80048; 80053; 83735; 84443; 84484; 85025; 85379; 85610; 85730; 93005; 93270; 93306; 96374; 96375; 99291

== ENCOUNTER 2022-04-13 11:33 | Emergency (ER) | payer OTHER ==
--- NOTE | 2022-04-13 12:07 | ED ---
SOB HPI - General Chief Complaint: Shortness of Breath Stated Complaint: MECHE Time Seen by Provider: 04/13/22 11:38 Source: patient, EMS Mode of arrival: EMS Limitations: no limitations - History of Present Illness Initial Comments: This patient is an 87-year-old man brought by ambulance to have evaluation for shortness of breath. The patient states that he was feeling like his usual self when he went to bed last night sometime around 11 PM. The patient states that he woke up this morning little after 10 AM, he felt like he was short of breath, he felt like he was having some numbness or tingling in his arms and legs bilaterally, and they called the ambulance to come to the emergency room for evaluation. The patient states that his symptoms have resolved. Now he is just cold. He denies having fever or chills. No productive cough. No chest pain. MD Complaint: shortness of breath Onset/Timin -: hour(s) Severity scale (1-10): 0 Consistency: now resolved Improves With: nothing Worsens With: nothing Associated Symptoms: parasthesias Treatments Prior to Arrival: none - Related Data Home Oxygen Therapy: No Home Medications Medication Instructions Recorded Confirmed Isosorbide Mononitrate [Ismo] 20 mg PO BID 03/25/14 04/13/22 Atorvastatin Calcium [Lipitor] 80 mg PO DAILY 08/12/18 04/13/22 Finasteride [Proscar] 5 mg PO HS 08/12/18 04/13/22 Tamsulosin [Flomax] 0.4 mg PO DAILY 12/07/19 04/13/22 Aspirin EC [Ecotrin Low Dose] 81 mg PO HS 06/12/21 04/13/22 Escitalopram [Lexapro] 5 mg PO DAILY 02/20/22 04/13/22 Furosemide [Lasix] 20 mg PO MOWEFR 02/20/22 04/13/22 Potassium Chloride [Klor-Con M20] 20 meq PO MOWEFR 02/20/22 04/13/22 lisinopriL [Zestril] 10 mg PO DAILY 02/20/22 04/13/22 Previous Rx's Medication Instructions Recorded Albuterol Inhaler [Ventolin Hfa 1 - 2 puff INHALATION Q6HR PRN #1 04/13/22 Inhaler] each predniSONE [Deltasone] 20 mg PO BID #8 tab 10/04/22 Allergies Allergy/AdvReac Type Severity Reaction Status Date / Time adhesive tape Allergy pulls skin Verified 04/13/22 12:38 off adhesive dressings Allergy pulls skin Uncoded 04/13/22 11:40 off Review of Systems ROS Statement: Those systems with pertinent positive or pertinent negative responses have been documented in the HPI. ROS Other: All systems not noted in ROS Statement are negative. Constitutional: Denies: fever, chills Respiratory: Reports: as per HPI, dyspnea. Denies: cough, wheezes Cardiovascular: Denies: chest pain, palpitations, orthopnea, edema, syncope Gastrointestinal: Denies: abdominal pain, nausea, vomiting, diarrhea Genitourinary: Denies: dysuria, hematuria Musculoskeletal: Denies: back pain Skin: Denies: rash Neurological: Reports: as per HPI, paresthesias. Denies: headache, weakness, numbness Past Medical History Past Medical History: Hyperlipidemia, Hypertension, Myocardial Infarction (AL), Osteoarthritis (OA), Pneumonia Additional Past Medical History / Comment(s): has some balance issue, uses cane when outside home, sinus problems, Last Myocardial Infarction Date:: 1993 History of Any Multi-Drug Resistant Organisms: None Reported Past Surgical History: Back Surgery, Heart Catheterization, Tonsillectomy Additional Past Surgical History / Comment(s): 2 Neck surgery, STATES HAS "PLASTIC" IN NECK, METAL IN BACK, STENT IN HEART X2, NORTH CATARACTS, Past Anesthesia/Blood Transfusion Reactions: No Reported Reaction Additional Past Anesthesia/Blood Transfusion Reaction / Comment(s): denies PONV Date of Last Stent Placement:: 2012 Past Psychological History: No Psychological Hx Reported Smoking Status: Former smoker Past Alcohol Use History: None Reported Past Drug Use History: None Reported - Past Family History Father Family Medical History: Myocardial Infarction (AL) Additional Family Medical History / Comment(s): Several mi's, but from complications of pedestrain/mva-head injury. Mother Family Medical History: CVA/TIA Daughter(s) Family Medical History: Diabetes Mellitus General Exam Limitations: no limitations General appearance: alert, in no apparent distress Head exam: Present: atraumatic, normocephalic Eye exam: Present: normal appearance. Absent: scleral icterus, conjunctival injection Neck exam: Present: normal inspection Respiratory exam: Present: normal lung sounds bilaterally. Absent: respiratory distress, wheezes, rales, rhonchi, stridor Cardiovascular Exam: Present: regular rate, normal rhythm, systolic murmur. Absent: diastolic murmur, rubs, gallop GI/Abdominal exam: Present: soft. Absent: distended, tenderness, guarding, rebound, rigid, mass Extremities exam: Present: normal inspection, normal capillary refill. Absent: pedal edema, calf tenderness Back exam: Present: normal inspection. Absent: CVA tenderness (R), CVA tenderness (L) Neurological exam: Present: alert. Absent: motor sensory deficit Skin exam: Present: warm, dry, intact, normal color. Absent: rash Course Vital Signs 04/13/22 04/13/22 04/13/22 11:35 11:43 11:46 Temperature 97.7 F Pulse Rate 48 L 47 L Respiratory 18 20 18 Rate Blood Pressure 191/83 170/78 O2 Sat by Pulse 99 99 Oximetry 04/13/22 04/13/22 04/13/22 12:35 13:30 14:31 Temperature Pulse Rate 46 L 67 62 Respiratory 18 18 18 Rate Blood Pressure 161/108 140/91 179/64 O2 Sat by Pulse 99 96 98 Oximetry 04/13/22 15:24 Temperature Pulse Rate 47 L Respiratory 16 Rate Blood Pressure O2 Sat by Pulse Oximetry Medical Decision Making - Lab Data Result diagrams: 04/13/22 12:07 04/13/22 12:07 Lab Results 04/13/22 04/13/22 04/13/22 Range/Units 12:07 12:07 12:07 WBC 8.5 (3.8-10.6) k/uL RBC 4.54 (4.30-5.90) m/uL Hgb 14.8 (13.0-17.5) gm/dL Hct 42.6 (39.0-53.0) % MCV 93.9 (80.0-100.0) fL MCH 32.7 (25.0-35.0) pg MCHC 34.8 (31.0-37.0) g/dL RDW 13.5 (11.5-15.5) % Plt Count 226 (150-450) k/uL MPV 7.7 Neutrophils % 53 % Lymphocytes % 36 % Monocytes % 5 % Eosinophils % 4 % Basophils % 1 % Neutrophils # 4.5 (1.3-7.7) k/uL Lymphocytes # 3.1 (1.0-4.8) k/uL Monocytes # 0.5 (0-1.0) k/uL Eosinophils # 0.3 (0-0.7) k/uL Basophils # 0.1 (0-0.2) k/uL PT 10.6 (9.0-12.0) sec INR 1.0 (<1.2) APTT 20.3 L (22.0-30.0) sec D-Dimer 2.50 H (<0.60) mg/L FEU Sodium 142 (137-145) mmol/L Potassium 4.1 (3.5-5.1) mmol/L Chloride 109 H (98-107) mmol/L Carbon Dioxide 21 L (22-30) mmol/L Anion Gap 12 mmol/L BUN 21 H (9-20) mg/dL Creatinine 0.94 (0.66-1.25) mg/dL Est GFR (CKD-EPI)AfAm 86 (>60 ml/min/1.73 sqM) Est GFR (CKD-EPI)NonAf 74 (>60 ml/min/1.73 sqM) Glucose 106 H (74-99) mg/dL Plasma Lactic Acid Bryn (0.7-2.0) mmol/L Calcium 9.1 (8.4-10.2) mg/dL Total Bilirubin 1.1 (0.2-1.3) mg/dL AST 30 (17-59) U/L ALT 31 (4-49) U/L Alkaline Phosphatase 79 (38-126) U/L Troponin I (0.000-0.034) ng/mL Total Protein 6.0 L (6.3-8.2) g/dL Albumin 3.8 (3.5-5.0) g/dL Coronavirus (PCR) (Not Detectd) 04/13/22 04/13/22 04/13/22 Range/Units 12:07 12:35 12:35 WBC (3.8-10.6) k/uL RBC (4.30-5.90) m/uL Hgb (13.0-17.5) gm/dL Hct (39.0-53.0) % MCV (80.0-100.0) fL MCH (25.0-35.0) pg MCHC (31.0-37.0) g/dL RDW (11.5-15.5) % Plt Count (150-450) k/uL MPV Neutrophils % % Lymphocytes % % Monocytes % % Eosinophils % % Basophils % % Neutrophils # (1.3-7.7) k/uL Lymphocytes # (1.0-4.8) k/uL Monocytes # (0-1.0) k/uL Eosinophils # (0-0.7) k/uL Basophils # (0-0.2) k/uL PT (9.0-12.0) sec INR (<1.2) APTT (22.0-30.0) sec D-Dimer (<0.60) mg/L FEU Sodium (137-145) mmol/L Potassium (3.5-5.1) mmol/L Chloride (98-107) mmol/L Carbon Dioxide (22-30) mmol/L Anion Gap mmol/L BUN (9-20) mg/dL Creatinine (0.66-1.25) mg/dL Est GFR (CKD-EPI)AfAm (>60 ml/min/1.73 sqM) Est GFR (CKD-EPI)NonAf (>60 ml/min/1.73 sqM) Glucose (74-99) mg/dL Plasma Lactic Acid Bryn 0.9 (0.7-2.0) mmol/L Calcium (8.4-10.2) mg/dL Total Bilirubin (0.2-1.3) mg/dL AST (17-59) U/L ALT (4-49) U/L Alkaline Phosphatase (38-126) U/L Troponin I 0.016 (0.000-0.034) ng/mL Total Protein (6.3-8.2) g/dL Albumin (3.5-5.0) g/dL Coronavirus (PCR) Not Detected (Not Detectd) - EKG Data -: EKG Interpreted by Me EKG shows normal: sinus rhythm, axis (Normal), intervals (LA interval is 223 ms, prolonged consistent with first-degree AV block. QRS duration 114 ms, QTC 420 ms, both normal.) Rate: bradycardia (Rate 48 bpm) Interpretation: other (Possible old inferior infarct.) Disposition Clinical Impression: COPD exacerbation Disposition: HOME SELF-CARE Condition: Good Instructions (If sedation given, give patient instructions): COPD (Chronic Obstructive Pulmonary Disease) (ED) Prescriptions: predniSONE [Deltasone] 20 mg PO BID #8 tab Albuterol Inhaler [Ventolin Hfa Inhaler] 1 - 2 puff INHALATION Q6HR PRN #1 each PRN Reason: Wheezing Is patient prescribed a controlled substance at d/c from ED?: No Referrals: Nayeli Michel MD [Primary Care Provider] - 1-2 days
[2022-04-13 12:20] LABS: Basophils # (A) 0.1 k/uL (0-0.2); Basophils % (A) 1 %; Eosinophils # (A) 0.3 k/uL (0-0.7); Eosinophils % (A) 4 %; HCT 42.6 % (39.0-53.0); HGB 14.8 gm/dL (13.0-17.5); Lymphocytes # (A) 3.1 k/uL (1.0-4.8); Lymphocytes % (A) 36 %; MCH 32.7 pg (25.0-35.0); MCHC 34.8 g/dL (31.0-37.0); MCV 93.9 fL (80.0-100.0); Mean Platelet Volume 7.7; Monocytes # (A) 0.5 k/uL (0-1.0); Monocytes % (A) 5 %; Neutrophils # (A) 4.5 k/uL (1.3-7.7); Neutrophils % (A) 53 %; Platelet Count 226 k/uL (150-450); RBC 4.54 m/uL (4.30-5.90); RDW 13.5 % (11.5-15.5); WBC 8.5 k/uL (3.8-10.6)
--- NOTE | 2022-04-13 12:27 | XR ---
EXAMINATION TYPE: XR chest 2V DATE OF EXAM: 04/13/2022 COMPARISON: 02/20/2022 TECHNIQUE: PA and lateral views submitted. HISTORY: Shortness of breath FINDINGS: The lungs are clear and there is no pneumothorax, pleural effusion, or focal pneumonia. Postsurgica l changes overlying the vertebral column. Hyperinflation suggests COPD. Atherosclerotic change aorta. Arthropathy of the shoulders. IMPRESSION: 1. No acute process. Correlate for COPD.
[2022-04-13 12:37] LABS: Albumin 3.8 g/dL (3.5-5.0); Calcium 9.1 mg/dL (8.4-10.2); Potassium 4.1 mmol/L (3.5-5.1); Total Bilirubin 1.1 mg/dL (0.2-1.3)
[2022-04-13 12:41] LABS: Partial Thromboplastin Time 20.3 sec (22.0-30.0); Prothrombin Time 10.6 sec (9.0-12.0)
--- NOTE | 2022-04-13 14:42 | CT ---
EXAMINATION TYPE: CT chest angio for PE DATE OF EXAM: 04/13/2022 COMPARISON: CTA chest February 20, 2022 HISTORY: SOB CT DLP: 325.1 mGycm. Automated Exposure Control for Dose Reduction was Utilized. CONTRAST: CTA scan of the thorax is performed with IV Contrast, patient injected with 100ml mL of Isovue 300, p ulmonary embolism protocol. MIP Images are created on CT scanner and reviewed. FINDINGS: LUNGS: Moderate underlying emphysematous changes are redemonstrated greatest in the upper lungs . Cur rent exam suboptimal as patient is unable to hold breath. Trace bilateral pleural effusions are seen. No pneumothorax present bilaterally. The tracheobronchial tree is patent. MEDIASTINUM: There is satisfactory enhancement of the pulmonary artery and its branches, there is no CT evidence for pulmonary embolism. There are no greater than 1 cm hilar or mediastinal lymph nodes. Heart size stable and upper limits of normal. No pericardial effusion is seen. Coronary artery calci fication redemonstrated. Moderate to severe mixed plaque in the aortic arch and descending aorta are redemonstrated OTHER: Bilateral subareolar gynecomastia again seen. Postsurgical change to the thoracolumbar spine i s partially imaged. Postsurgical changes lower cervical spine is partially imaged. IMPRESSION: No CT evidence of acute pulmonary embolism. Moderate emphysematous change with tiny bilat eral pleural effusions. No suspicious focal consolidation.
[2022-04-13] MEDS ORDERED: predniSONE 20 MG TAB PO STA (14:47)
[2022-04-13] MEDS ORDERED: ALBUTEROL NEBULIZED 2.5 MG/3 ML INHALATION STA (14:47)
[2022-04-13 16:15] VITALS: BP 113/60; PULSE 57; RESP 18; TEMP 97.8
--- NOTE | 2022-04-13 16:30 | ED ---
Medical Decision Making - Lab Data Result diagrams: 04/13/22 12:07 04/13/22 12:07 Lab Results 04/13/22 04/13/22 04/13/22 Range/Units 12:07 12:07 12:07 WBC 8.5 (3.8-10.6) k/uL RBC 4.54 (4.30-5.90) m/uL Hgb 14.8 (13.0-17.5) gm/dL Hct 42.6 (39.0-53.0) % MCV 93.9 (80.0-100.0) fL MCH 32.7 (25.0-35.0) pg MCHC 34.8 (31.0-37.0) g/dL RDW 13.5 (11.5-15.5) % Plt Count 226 (150-450) k/uL MPV 7.7 Neutrophils % 53 % Lymphocytes % 36 % Monocytes % 5 % Eosinophils % 4 % Basophils % 1 % Neutrophils # 4.5 (1.3-7.7) k/uL Lymphocytes # 3.1 (1.0-4.8) k/uL Monocytes # 0.5 (0-1.0) k/uL Eosinophils # 0.3 (0-0.7) k/uL Basophils # 0.1 (0-0.2) k/uL PT 10.6 (9.0-12.0) sec INR 1.0 (<1.2) APTT 20.3 L (22.0-30.0) sec D-Dimer 2.50 H (<0.60) mg/L FEU Sodium 142 (137-145) mmol/L Potassium 4.1 (3.5-5.1) mmol/L Chloride 109 H (98-107) mmol/L Carbon Dioxide 21 L (22-30) mmol/L Anion Gap 12 mmol/L BUN 21 H (9-20) mg/dL Creatinine 0.94 (0.66-1.25) mg/dL Est GFR (CKD-EPI)AfAm 86 (>60 ml/min/1.73 sqM) Est GFR (CKD-EPI)NonAf 74 (>60 ml/min/1.73 sqM) Glucose 106 H (74-99) mg/dL Plasma Lactic Acid Bryn (0.7-2.0) mmol/L Calcium 9.1 (8.4-10.2) mg/dL Total Bilirubin 1.1 (0.2-1.3) mg/dL AST 30 (17-59) U/L ALT 31 (4-49) U/L Alkaline Phosphatase 79 (38-126) U/L Troponin I (0.000-0.034) ng/mL Total Protein 6.0 L (6.3-8.2) g/dL Albumin 3.8 (3.5-5.0) g/dL Coronavirus (PCR) (Not Detectd) 04/13/22 04/13/22 04/13/22 Range/Units 12:07 12:35 12:35 WBC (3.8-10.6) k/uL RBC (4.30-5.90) m/uL Hgb (13.0-17.5) gm/dL Hct (39.0-53.0) % MCV (80.0-100.0) fL MCH (25.0-35.0) pg MCHC (31.0-37.0) g/dL RDW (11.5-15.5) % Plt Count (150-450) k/uL MPV Neutrophils % % Lymphocytes % % Monocytes % % Eosinophils % % Basophils % % Neutrophils # (1.3-7.7) k/uL Lymphocytes # (1.0-4.8) k/uL Monocytes # (0-1.0) k/uL Eosinophils # (0-0.7) k/uL Basophils # (0-0.2) k/uL PT (9.0-12.0) sec INR (<1.2) APTT (22.0-30.0) sec D-Dimer (<0.60) mg/L FEU Sodium (137-145) mmol/L Potassium (3.5-5.1) mmol/L Chloride (98-107) mmol/L Carbon Dioxide (22-30) mmol/L Anion Gap mmol/L BUN (9-20) mg/dL Creatinine (0.66-1.25) mg/dL Est GFR (CKD-EPI)AfAm (>60 ml/min/1.73 sqM) Est GFR (CKD-EPI)NonAf (>60 ml/min/1.73 sqM) Glucose (74-99) mg/dL Plasma Lactic Acid Bryn 0.9 (0.7-2.0) mmol/L Calcium (8.4-10.2) mg/dL Total Bilirubin (0.2-1.3) mg/dL AST (17-59) U/L ALT (4-49) U/L Alkaline Phosphatase (38-126) U/L Troponin I 0.016 (0.000-0.034) ng/mL Total Protein (6.3-8.2) g/dL Albumin (3.5-5.0) g/dL Coronavirus (PCR) Not Detected (Not Detectd) Disposition Clinical Impression: COPD exacerbation Disposition: HOME SELF-CARE Condition: Good Instructions (If sedation given, give patient instructions): COPD (Chronic Obstructive Pulmonary Disease) (ED) Prescriptions: Albuterol Sulfate [Albuterol Sulfate Hfa] 2 puff PO Q4H PRN #8.5 gm PRN Reason: Cough predniSONE [Deltasone] 20 mg PO BID #10 tab Is patient prescribed a controlled substance at d/c from ED?: No Referrals: Nayeli Michel MD [Primary Care Provider] - 1-2 days Time of Disposition: 16:29
== END 2022-04-13 16:15 | disposition home or self-care (01) ==
LOC: EC 11:33
DX: J44.1 Chronic obstructive pulmonary disease with (acute) exacerbation (principal); E78.5 Hyperlipidemia, unspecified; I10 Essential (primary) hypertension; I25.2 Old myocardial infarction; M19.90 Unspecified osteoarthritis, unspecified site; Z87.891 Personal history of nicotine dependence; Z88.8 Allergy status to other drugs, medicaments and biological substances; Z79.82 Long term (current) use of aspirin; Z79.51 Long term (current) use of inhaled steroids; Z79.899 Other long term (current) drug therapy; Z20.822 Contact with and (suspected) exposure to COVID-19
CPT/HCPCS: 36415; 94640; 93005; 85379; 80053; 83605; 84484; 85025; 85610; 85730; 87635; 71046; 71275; 99285; J7512; Q9967

== ENCOUNTER 2022-05-31 11:52 | Inpatient (IN) | payer MEDICARE, OTHER ==
[2022-05-31] MEDS ORDERED: ASPIRIN 81 MG PO STA (12:19)
[2022-05-31] MEDS ORDERED: NITROGLYCERIN OINT 1 INCH/GM PACKET TOPICAL STA (12:19)
--- NOTE | 2022-05-31 12:41 | ED ---
General Adult HPI - General Chief complaint: Back Pain/Injury Stated complaint: fall Time Seen by Provider: 05/31/22 12:00 Source: patient, RN notes reviewed, old records reviewed Mode of arrival: ambulatory Limitations: no limitations - History of Present Illness Initial comments: This is an 87-year-old male presents emergency department stating that he came in because he short of breath per patient states when he got and it's the oxygen and rest seem to help. Patient denies shortness of breath currently. Patient also stated that he has since chest heaviness but there was no pain just heaviness on his chest. Patient states that heaviness is still there but it's not as bad as it was. Patient states every morning lately he gets up and he has a sharp pain in the right flank and goes away for about 10 minutes. Patient doesn't know what that is but he did not have that today when he was short of breath. Patient denies any recent fever chills or cough per patient denies any black or bloody stools. Patient denies any abdominal pain. Patient denies nausea vomiting diarrhea. Patient denies headache patient denies numbness weakness. Patient denies any lightheadedness or dizziness. - Related Data Home Medications Medication Instructions Recorded Confirmed Isosorbide Mononitrate [Ismo] 20 mg PO BID 03/25/14 04/13/22 Atorvastatin Calcium [Lipitor] 80 mg PO DAILY 08/12/18 04/13/22 Finasteride [Proscar] 5 mg PO HS 08/12/18 04/13/22 Tamsulosin [Flomax] 0.4 mg PO DAILY 12/07/19 04/13/22 Aspirin EC [Ecotrin Low Dose] 81 mg PO HS 06/12/21 04/13/22 Escitalopram [Lexapro] 5 mg PO DAILY 02/20/22 04/13/22 Furosemide [Lasix] 20 mg PO MOWEFR 02/20/22 04/13/22 Potassium Chloride [Klor-Con M20] 20 meq PO MOWEFR 02/20/22 04/13/22 lisinopriL [Zestril] 10 mg PO DAILY 02/20/22 04/13/22 Previous Rx's Medication Instructions Recorded Albuterol Sulfate [Albuterol 2 puff PO Q4H PRN #8.5 gm 04/13/22 Sulfate Hfa] predniSONE [Deltasone] 20 mg PO BID #10 tab 04/13/22 Allergies Allergy/AdvReac Type Severity Reaction Status Date / Time adhesive tape Allergy pulls skin Verified 05/31/22 12:00 off adhesive dressings Allergy pulls skin Uncoded 05/31/22 12:00 off Review of Systems ROS Statement: Those systems with pertinent positive or pertinent negative responses have been documented in the HPI. ROS Other: All systems not noted in ROS Statement are negative. Past Medical History Past Medical History: Hyperlipidemia, Hypertension, Myocardial Infarction (CT), Osteoarthritis (OA), Pneumonia Additional Past Medical History / Comment(s): has some balance issue, uses cane when outside home, sinus problems, Last Myocardial Infarction Date:: 1993 History of Any Multi-Drug Resistant Organisms: None Reported Past Surgical History: Back Surgery, Heart Catheterization, Tonsillectomy Additional Past Surgical History / Comment(s): 2 Neck surgery, STATES HAS "PLASTIC" IN NECK, METAL IN BACK, STENT IN HEART X2, NORTH CATARACTS, Past Anesthesia/Blood Transfusion Reactions: No Reported Reaction Additional Past Anesthesia/Blood Transfusion Reaction / Comment(s): denies PONV Date of Last Stent Placement:: 2012 Past Psychological History: No Psychological Hx Reported Smoking Status: Former smoker Past Alcohol Use History: None Reported Past Drug Use History: None Reported - Past Family History Father Family Medical History: Myocardial Infarction (CT) Additional Family Medical History / Comment(s): Several mi's, but from complications of pedestrain/mva-head injury. Mother Family Medical History: CVA/TIA Daughter(s) Family Medical History: Diabetes Mellitus General Exam - General Exam Comments Initial Comments: GENERAL: Patient is well-developed and well-nourished. Patient is nontoxic and well- hydrated and is in mild distress. ENT: Neck is soft and supple. No significant lymphadenopathy is noted. Oropharynx is clear. Moist mucous membranes. Neck has full range of motion without eliciting any pain. EYES: The sclera were anicteric and conjunctiva were pink and moist. Extraocular movements were intact and pupils were equal round and reactive to light. Eyelid s were unremarkable. PULMONARY: Unlabored respirations. Good breath sounds bilaterally. No audible rales rhonchi or wheezing was noted. CARDIOVASCULAR: Patient is bradycardic at about 40 beats a minute. ABDOMEN: Soft and nontender with normal bowel sounds. No palpable organomegaly was noted. There is no palpable pulsatile mass. SKIN: Skin is clear with no lesions or rashes and otherwise unremarkable. NEUROLOGIC: Patient is alert and oriented x3. Cranial nerves II through XII are grossly intact. Motor and sensory are also intact. Normal speech, volume and content. Symmetrical smile. MUSCULOSKELETAL: Normal extremities with adequate strength and full range of motion. No lower ex tremity swelling or edema. No calf tenderness. LYMPHATICS: No significant lymphadenopathy is noted PSYCHIATRIC: Normal psychiatric evaluation. Limitations: no limitations Course Vital Signs 05/31/22 05/31/22 11:56 12:44 Temperature 98.3 F Pulse Rate 51 L 48 L Respiratory 18 18 Rate Blood Pressure 181/81 165/74 O2 Sat by Pulse 100 Oximetry Medical Decision Making - Medical Decision Making EKG was interpreted by me. EKG shows sinus bradycardia at 45 bpm QRS is 111 QT intervals 470 QTC is 428 per patient's EKG shows no ST segment elevation or depression. Chest x-ray was interpreted by me shows no acute abnormalities. I spoke with Dr. Michel he agreed to admit the patient I admitted the patient wrote admitting orders. I consult to cardiology. - Lab Data Result diagrams: 05/31/22 12:46 05/31/22 12:46 Lab Results 05/31/22 05/31/22 05/31/22 Range/Units 12:46 12:46 12:46 WBC 8.0 (3.8-10.6) k/uL RBC 4.26 L (4.30-5.90) m/uL Hgb 14.1 (13.0-17.5) gm/dL Hct 40.4 (39.0-53.0) % MCV 94.8 (80.0-100.0) fL MCH 33.2 (25.0-35.0) pg MCHC 35.0 (31.0-37.0) g/dL RDW 13.0 (11.5-15.5) % Plt Count 221 (150-450) k/uL MPV 7.1 Neutrophils % 57 % Lymphocytes % 35 % Monocytes % 4 % Eosinophils % 2 % Basophils % 1 % Neutrophils # 4.5 (1.3-7.7) k/uL Lymphocytes # 2.8 (1.0-4.8) k/uL Monocytes # 0.4 (0-1.0) k/uL Eosinophils # 0.2 (0-0.7) k/uL Basophils # 0.0 (0-0.2) k/uL PT 10.4 (9.0-12.0) sec INR 0.9 (<1.2) APTT 20.6 L (22.0-30.0) sec Sodium 140 (137-145) mmol/L Potassium 4.3 (3.5-5.1) mmol/L Chloride 110 H (98-107) mmol/L Carbon Dioxide 23 (22-30) mmol/L Anion Gap 7 mmol/L BUN 23 H (9-20) mg/dL Creatinine 1.00 (0.66-1.25) mg/dL Est GFR (CKD-EPI)AfAm 79 (>60 ml/min/1.73 sqM) Est GFR (CKD-EPI)NonAf 68 (>60 ml/min/1.73 sqM) Glucose 119 H (74-99) mg/dL Calcium 8.8 (8.4-10.2) mg/dL Magnesium 1.9 (1.6-2.3) mg/dL Total Bilirubin 1.0 (0.2-1.3) mg/dL AST 21 (17-59) U/L ALT 23 (4-49) U/L Alkaline Phosphatase 71 (38-126) U/L Troponin I (0.000-0.034) ng/mL NT-Pro-B Natriuret Pep pg/mL Total Protein 5.5 L (6.3-8.2) g/dL Albumin 3.5 (3.5-5.0) g/dL 05/31/22 05/31/22 Range/Units 12:46 12:46 WBC (3.8-10.6) k/uL RBC (4.30-5.90) m/uL Hgb (13.0-17.5) gm/dL Hct (39.0-53.0) % MCV (80.0-100.0) fL MCH (25.0-35.0) pg MCHC (31.0-37.0) g/dL RDW (11.5-15.5) % Plt Count (150-450) k/uL MPV Neutrophils % % Lymphocytes % % Monocytes % % Eosinophils % % Basophils % % Neutrophils # (1.3-7.7) k/uL Lymphocytes # (1.0-4.8) k/uL Monocytes # (0-1.0) k/uL Eosinophils # (0-0.7) k/uL Basophils # (0-0.2) k/uL PT (9.0-12.0) sec INR (<1.2) APTT (22.0-30.0) sec Sodium (137-145) mmol/L Potassium (3.5-5.1) mmol/L Chloride (98-107) mmol/L Carbon Dioxide (22-30) mmol/L Anion Gap mmol/L BUN (9-20) mg/dL Creatinine (0.66-1.25) mg/dL Est GFR (CKD-EPI)AfAm (>60 ml/min/1.73 sqM) Est GFR (CKD-EPI)NonAf (>60 ml/min/1.73 sqM) Glucose (74-99) mg/dL Calcium (8.4-10.2) mg/dL Magnesium (1.6-2.3) mg/dL Total Bilirubin (0.2-1.3) mg/dL AST (17-59) U/L ALT (4-49) U/L Alkaline Phosphatase (38-126) U/L Troponin I 0.017 (0.000-0.034) ng/mL NT-Pro-B Natriuret Pep 294 pg/mL Total Protein (6.3-8.2) g/dL Albumin (3.5-5.0) g/dL Disposition Clinical Impression: Symptomatic bradycardia, Dyspnea, Chest pain Disposition: ADMITTED IP TO THIS HOSP Referrals: Nayeli Michel MD [Primary Care Provider] - 1-2 days Time of Disposition: 13:45
[2022-05-31 12:57] LABS: Basophils % (A) 1 %; Eosinophils # (A) 0.2 k/uL (0-0.7); Eosinophils % (A) 2 %; HCT 40.4 % (39.0-53.0); HGB 14.1 gm/dL (13.0-17.5); Lymphocytes # (A) 2.8 k/uL (1.0-4.8); Lymphocytes % (A) 35 %; MCH 33.2 pg (25.0-35.0); MCV 94.8 fL (80.0-100.0); Mean Platelet Volume 7.1; Monocytes # (A) 0.4 k/uL (0-1.0); Monocytes % (A) 4 %; Neutrophils # (A) 4.5 k/uL (1.3-7.7); Neutrophils % (A) 57 %; Platelet Count 221 k/uL (150-450); RBC 4.26 m/uL (4.30-5.90)
--- NOTE | 2022-05-31 13:03 | XR ---
EXAMINATION TYPE: XR chest 2V DATE OF EXAM: 05/31/2022 COMPARISON: 04/13/2022 TECHNIQUE: PA and lateral views submitted. HISTORY: Shortness of breath FINDINGS: The lungs are clear and there is no pneumothorax, pleural effusion, or focal pneumonia. Diffuse hype rinflation. Postsurgical changes involving the vertebral column. Diffuse osteopenia present throughou t the shoulders. Atherosclerotic change aorta. Degenerative changes of the spine. IMPRESSION: 1. COPD.
[2022-05-31 13:08] LABS: Albumin 3.5 g/dL (3.5-5.0); Calcium 8.8 mg/dL (8.4-10.2); Magnesium 1.9 mg/dL (1.6-2.3); Potassium 4.3 mmol/L (3.5-5.1); Total Protein 5.5 g/dL (6.3-8.2)
[2022-05-31 13:20] LABS: INR 0.9 (<1.2); Prothrombin Time 10.4 sec (9.0-12.0)
[2022-05-31 13:28] LABS: Partial Thromboplastin Time 20.6 sec (22.0-30.0)
[2022-05-31] MEDS ORDERED: NITROGLYCERIN SL TABS 0.4 MG TAB SUBLINGUAL PRN (13:46)
[2022-05-31] MEDS ORDERED: ALBUTEROL NEBULIZED 2.5 MG/3 ML INHALATION PRN (17:33)
[2022-05-31] MEDS: FUROSEMIDE 20 MG TAB PO SCH (18:05)
[2022-05-31] MEDS: ATORVASTATIN 80 MG TAB PO SCH (18:05)
[2022-05-31] MEDS: POTASSIUM CHLORIDE ER 20 MEQ TAB.ER PO SCH (18:05)
[2022-05-31] MEDS: lisinopriL 10 MG TAB PO SCH (18:05)
[2022-05-31] MEDS: NITROGLYCERIN OINT 1 INCH/GM PACKET TOPICAL SCH (18:05)
[2022-05-31] MEDS: ESCITALOPRAM 5 MG TAB PO SCH (20:25)
[2022-05-31] MEDS: ISOSORBIDE MONONITRATE 20 MG TAB PO SCH (20:25)
[2022-05-31] MEDS: FINASTERIDE 5 MG TAB PO SCH (20:26)
[2022-05-31] MEDS: METOPROLOL SUCCINATE (ER) 25 MG TAB.ER.24H PO SCH (20:26)
[2022-05-31] MEDS: SYMBICORT 160-4.5 MCG INHALER INHALATION SCH (21:49)
[2022-05-31] MEDS: IPRATROPIUM 0.5 MG/2.5 ML NEBU INHALATION SCH (21:49)
[2022-06-01] MEDS: NITROGLYCERIN OINT 1 INCH/GM PACKET TOPICAL SCH ×2 (00:15→06:21)
[2022-06-01] MEDS ORDERED: ASPIRIN 325 MG TAB PO SCH (09:00)
[2022-06-01] MEDS: ATORVASTATIN 80 MG TAB PO SCH (09:09)
[2022-06-01] MEDS: ENOXAPARIN 40 MG/0.4 ML SYRINGE SQ SCH (09:09)
[2022-06-01] MEDS: TAMSULOSIN 0.4 MG CAP.ER.24H PO SCH (09:09)
[2022-06-01] MEDS: ESCITALOPRAM 5 MG TAB PO SCH (09:09)
[2022-06-01] MEDS: ASPIRIN 81 MG PO SCH (09:09)
[2022-06-01] MEDS: lisinopriL 10 MG TAB PO SCH ×2 (09:09→21:31)
[2022-06-01] MEDS: predniSONE 5 MG TAB PO SCH (09:10)
[2022-06-01] MEDS: ISOSORBIDE MONONITRATE 20 MG TAB PO SCH ×2 (09:12→21:47)
[2022-06-01] MEDS: SYMBICORT 160-4.5 MCG INHALER INHALATION SCH ×2 (09:20→20:49)
[2022-06-01] MEDS: IPRATROPIUM 0.5 MG/2.5 ML NEBU INHALATION SCH ×4 (09:20→20:49)
[2022-06-01] MEDS ORDERED: ALPRAZolam 0.25 MG TAB PO PRN (10:01)
[2022-06-01] MEDS ORDERED: ALPRAZolam 0.5 MG TAB PO PRN (10:01)
--- NOTE | 2022-06-01 10:08 | P.CRDCN ---
History of Present Illness History of present illness: This is a pleasant 87-year-old gentleman who follows in the office with Dr. Myers. The past medical history significant for CAD, status post stenting of the RCA in 2012 and mid LAD 2018 with most recent cardiac catheterization from November 2019 showing mild to moderate triple-vessel disease with calcified coronary arteries and patent stents, hypertension, hyperlipidemia and prior nicotine d ependence. Presented to the emergency department with complaints of shortness of breath. He states he woke up 2 night ago, short of breath, he states he could not get comfortable in bed, and his called EMS because he felt as if he could not breathe. He denies any chest pain, palpitations, nausea, vomiting, diaphoresis. He states his symptoms improved once EMS placed oxygen on him. He has had no further episodes of shortness of breath. He does endorse since February having symptoms of increased fatigue, some exertional shortness of breath and not feeling well. He denies any cough, fever, or chills. He denies any LE edema. He cannot recall what his symptoms were when he had his stenting in the past. He denies any history of COPD or asthma or stroke. He denies any current tobacco use. DIAGNOSTICS * EKG reveals sinus bradycardia, HR 45 * Echocardiogram 02/2022 revealed EF of 5055%, moderate aortic stenosis with a peak/mean gradient of 39 mmHg/23 mmHg * Telemetry tracings indicate sinus bradycardia with HR 46-50s. * Chest xray no acute cardiopulmonary process. * Laboratory reviewed, sodium 140, potassium 4.3, BUN 23, serum creatinine 1.0, troponin negative, proBNP 294, WBC 8.0, hemoglobin 14.1, platelets 221. * Current home cardiac medications include Lasix 20 mg Tuesday, potassium chloride, lisinopril 10 mg daily, propanolol 10 mg daily, aspirin 81 mg nightly, Imdur 20 mg twice a day, atorvastatin 80 mg daily * Cardiac catheterization November 2019: mild to moderate triple-vessel disease with calcified coronary arteries and patent stents in RCA and LAD. REVIEW OF SYSTEMS At the time of my exam: CONSTITUTIONAL: Denies fever or chills. CARDIOVASCULAR: Denies chest pain, +episode of shortness of breath, Denies orthopnea, PND or palpitations. RESPIRATORY: Denies cough. GASTROINTESTINAL: Denies abdominal pain, diarrhea, constipation, nausea or vomiting. MUSCULOSKELETAL: Denies myalgias. NEUROLOGIC: Denies numbness, tingling, headacbe or weakness. ENDOCRINE: Denies fatigue, weight change, polydipsia or polyurina. GENITOURINARY: Denies burning, hematuria or urgency with micturation. HEMATOLOGIC: Denies history of anemia or bleeding. PHYSICAL EXAMINATION Vitals reviewed CONSTITUTIONAL: No apparent distress. HEENT: Head is normocephalic. Pupils are equal, round. Sclerae anicteric. Mucous membranes of the mouth are moist. No JVD. No carotid bruit. CHEST EXAMINATION: Lungs are clear to auscultation. No chest wall tenderness is noted on palpation or with deep breathing. HEART EXAMINATION: Regular rate and rhythm. S1, S2 heard. No murmurs, gallops or rub. ABDOMEN: Soft, nontender. Positive bowel sounds. EXTREMITIES: 2+ peripheral pulses, no lower extremity edema and no calf tenderness. NEUROLOGIC EXAMINATION: Patient is awake, alert and oriented x3. ASSESSMENT Shortness of breath Elevated troponin, rule out ACS Sinus bradycardia Moderate aortic stenosis Hypertension Coronary artery disease status post prior PCI of the RCA 2012 and mid LAD 2018 Dyslipidemia Prior tobacco use PLAN Increase lisinopril to 10mg BID Obtain repeat 2D echocardiogram to evaluate LV function and aortic stenosis Continue aspirin, statin, beta shayy Plan for cardiac catheterization with Dr. Peñaloza tomorrow, patient is agreeable. I have discussed the risks, benefits and alternative therapies for the above- mentioned procedure and for both sedation/analgesia as well as necessary blood product administration, if indicated, as they pertain to this patient. The patient has indicated understanding and acceptance of the risks and procedures discussed. Questions have been answered appropriately and he is agreeable to move forward with the above-stated procedure. NPO after midnight Further recommendations based on clinical course Nurse practitioner note has been reviewed by physician. Signing provider agrees with the documented findings, assessment, and plan of care Past Medical History Past Medical History: Hyperlipidemia, Hypertension, Myocardial Infarction ([place]), Osteoarthritis (OA), Pneumonia Additional Past Medical History / Comment(s): has some balance issue, uses cane when outside home, sinus problems, Last Myocardial Infarction Date:: 1993 History of Any Multi-Drug Resistant Organisms: None Reported Past Surgical History: Back Surgery, Heart Catheterization, Tonsillectomy Additional Past Surgical History / Comment(s): 2 Neck surgery, 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 has 1 pet dog. pt uses cane when outdoors, drives. no home care services, . pt served in [employer] from [id number]. worked for [employer] from 1962 to 1991. Smoking Status: Former smoker Past Alcohol Use History: None Reported Additional Past Alcohol Use History / Comment(s): QUIT SMOKING IN 1989, SMOKED SINCE AGE 18 (1950) SMOKED 1 PPD, past heavy etoh but quit 1986. Past Drug Use History: None Reported - Past Family History Father Family Medical History: Myocardial Infarction (IA) Additional Family Medical History / Comment(s): Several mi's, but from complications of pedestrain/mva-head injury. Mother Family Medical History: CVA/TIA Daughter(s) Family Medical History: Diabetes Mellitus Medications and Allergies Home Medications Medication Instructions Recorded Confirmed Type Isosorbide Mononitrate [Ismo] 20 mg PO BID 03/25/14 05/31/22 History Atorvastatin Calcium [Lipitor] 80 mg PO DAILY 08/12/18 05/31/22 History Finasteride [Proscar] 5 mg PO HS 08/12/18 05/31/22 History Tamsulosin [Flomax] 0.4 mg PO DAILY 12/07/19 05/31/22 History Aspirin EC [Ecotrin Low Dose] 81 mg PO HS 06/12/21 05/31/22 History Escitalopram [Lexapro] 5 mg PO DAILY 02/20/22 05/31/22 History Furosemide [Lasix] 20 mg PO MOWEFR 02/20/22 05/31/22 History Potassium Chloride [Klor-Con M20] 20 meq PO MOWEFR 02/20/22 05/31/22 History lisinopriL [Zestril] 10 mg PO DAILY 02/20/22 05/31/22 History Albuterol Sulfate [Albuterol 2 puff PO Q6H PRN 05/31/22 05/31/22 History Sulfate Hfa] Budesonide/Glycopyr/Formoterol 2 puff INHALATION RT-BID 05/31/22 05/31/22 History [Breztri Aerosphere Inhaler] Propranolol HCl 10 mg PO DAILY 05/31/22 05/31/22 History predniSONE 5 mg PO DAILY 05/31/22 05/31/22 History Allergies Allergy/AdvReac Type Severity Reaction Status Date / Time adhesive tape Allergy pulls skin Verified 05/31/22 13:53 off adhesive dressings Allergy pulls skin Uncoded 05/31/22 13:53 off Physical Exam Vitals: Vital Signs Temp Pulse Pulse Resp BP BP Pulse Ox 06/01/22 03:00 98.0 F 62 18 155/70 96 06/01/22 00:00 98.2 F 49 L 16 122/61 95 05/31/22 22:02 84 05/31/22 21:51 84 05/31/22 19:51 97.8 F 78 16 116/84 98 05/31/22 17:12 98.3 F 102 H 18 168/75 96 05/31/22 16:37 98 05/31/22 16:03 52 L 18 152/72 98 05/31/22 14:29 45 L 18 150/63 98 05/31/22 12:44 48 L 18 165/74 05/31/22 11:56 98.3 F 51 L 18 181/81 100 Intake and Output 05/31/22 06/01/22 06/01/22 22:59 06:59 14:59 Intake Total 400 Output Total 525 Balance -125 Intake: Oral 400 Output: Urine 525 Other: Voiding Method Toilet Toilet Urinal Urinal Weight 72.575 kg 69.4 kg Results 05/31/22 12:46 05/31/22 12:46 Cardiac Enzymes 05/31/22 05/31/22 05/31/22 Range/Units 12:46 12:46 15:31 AST 21 (17-59) U/L Troponin I 0.017 0.023 (0.000-0.034) ng/mL 05/31/22 Range/Units 18:42 AST (17-59) U/L Troponin I 0.035 H* (0.000-0.034) ng/mL Coagulation 05/31/22 Range/Units 12:46 PT 10.4 (9.0-12.0) sec APTT 20.6 L (22.0-30.0) sec CBC 05/31/22 Range/Units 12:46 WBC 8.0 (3.8-10.6) k/uL RBC 4.26 L (4.30-5.90) m/uL Hgb 14.1 (13.0-17.5) gm/dL Hct 40.4 (39.0-53.0) % Plt Count 221 (150-450) k/uL Comprehensive Metabolic Panel 05/31/22 Range/Units 12:46 Sodium 140 (137-145) mmol/L Potassium 4.3 (3.5-5.1) mmol/L Chloride 110 H (98-107) mmol/L Carbon Dioxide 23 (22-30) mmol/L BUN 23 H (9-20) mg/dL Creatinine 1.00 (0.66-1.25) mg/dL Glucose 119 H (74-99) mg/dL Calcium 8.8 (8.4-10.2) mg/dL AST 21 (17-59) U/L ALT 23 (4-49) U/L Alkaline Phosphatase 71 (38-126) U/L Total Protein 5.5 L (6.3-8.2) g/dL Albumin 3.5 (3.5-5.0) g/dL Current Medications Generic Name Dose Route Start Last Admin Trade Name Freq PRN Reason Stop Dose Admin Albuterol Sulfate 2.5 mg 05/31/22 17:33 Albuterol Nebulized 2.5 Mg/3 Ml INHALATION RT-Q6H PRN Shortness Of Breath Aspirin 325 mg 06/01/22 09:00 Aspirin 325 Mg Tab PO DAILY [facility] Atorvastatin Calcium 80 mg 05/31/22 18:00 05/31/22 18:05 Atorvastatin 80 Mg Tab PO 80 mg DAILY FATMATA Administration Budesonide/Formoterol Fumarate 2 puff 05/31/22 20:00 05/31/22 21:49 Symbicort 160-4.5 Mcg Inhaler INHALATION 2 puff RT-BID FATMATA Administration Enoxaparin Sodium 40 mg 06/01/22 09:00 Enoxaparin 40 Mg/0.4 Ml Syringe SQ DAILY [facility] Escitalopram Oxalate 5 mg 05/31/22 18:00 05/31/22 20:25 Escitalopram 5 Mg Tab PO 5 mg DAILY [facility] Administration Finasteride 5 mg 05/31/22 21:00 05/31/22 20:26 Finasteride 5 Mg Tab PO 5 mg HS [facility] Administration Furosemide 20 mg 05/31/22 18:00 05/31/22 18:05 Furosemide 20 Mg Tab PO 20 mg MoWeFr@0900 FATMATA Administration Ipratropium [place] 0.5 mg 05/31/22 20:00 05/31/22 21:49 Ipratropium 0.5 Mg/2.5 Ml Nebu INHALATION 0.5 mg RT-QID [facility] Administration Isosorbide Mononitrate 20 mg 05/31/22 21:00 05/31/22 20:25 Isosorbide Mononitrate 20 Mg Tab PO 20 mg BID [facility] Administration Lisinopril 10 mg 05/31/22 18:00 05/31/22 18:05 Lisinopril 10 Mg Tab PO 10 mg DAILY [facility] Administration Metoprolol Succinate 25 mg 05/31/22 21:00 05/31/22 20:26 Metoprolol Succinate (Er) 25 Mg Tab.Er.24h PO 25 mg HS [facility] Administration Nitroglycerin 0.4 mg 05/31/22 13:46 Nitroglycerin Sl Tabs 0.4 Mg Tab SUBLINGUAL Q5M PRN Chest Pain Nitroglycerin 1 inch 05/31/22 18:00 06/01/22 06:21 Nitroglycerin Oint 1 Inch/Gm Packet TOPICAL 1 inch Q6HR [facility] Administration Potassium Chloride 20 meq 05/31/22 18:00 05/31/22 18:05 Potassium Chloride Er 20 Meq Tab.Er PO 20 meq [id number]@0900 [facility] Administration Prednisone 5 mg 06/01/22 09:00 Prednisone 5 Mg Tab PO DAILY [facility] Tamsulosin HCl 0.4 mg 06/01/22 09:00 Tamsulosin 0.4 Mg Cap.Er.24h PO DAILY [facility] Intake and Output 05/31/22 06/01/22 06/01/22 22:59 06:59 14:59 Intake Total 400 Output Total 525 Balance -125 Intake: Oral 400 Output: Urine 525 Other: Voiding Method Toilet Toilet Urinal Urinal Weight 72.575 kg 69.4 kg 05/31/22 12:46 05/31/22 12:46
[2022-06-01 10:53] LABS: Chol/HDL Ratio 3.05 Ratio; LDL Cholesterol,Calculated 79.4 mg/dL (0.0-131.0)
[2022-06-01] MEDS ORDERED: NON FORMULARY DRUG (Aspirin Ec 81 MG Tablet) PO SCH (21:00)
[2022-06-01] MEDS: FINASTERIDE 5 MG TAB PO SCH (21:31)
[2022-06-01] MEDS: METOPROLOL SUCCINATE (ER) 25 MG TAB.ER.24H PO SCH (21:31)
[2022-06-01] MEDS: SODIUM CHLORIDE 0.9% 1,000 ML in EMPTY BAG 1 BAG IV SCH (22:54)
[2022-06-02] MEDS: ATORVASTATIN 80 MG TAB PO SCH (06:26)
[2022-06-02] MEDS: ASPIRIN 81 MG PO SCH (06:26)
[2022-06-02] MEDS: POTASSIUM CHLORIDE ER 20 MEQ TAB.ER PO SCH (06:26)
[2022-06-02] MEDS: TAMSULOSIN 0.4 MG CAP.ER.24H PO SCH (06:26)
[2022-06-02] MEDS: lisinopriL 10 MG TAB PO SCH ×2 (06:26→21:07)
[2022-06-02] MEDS ORDERED: HEPARIN SODIUM,PORCINE 2,500 UNIT in SODIUM CHLORIDE 0.9% 250 ML IRRIGATION PRN (07:00)
[2022-06-02] MEDS ORDERED: HEPARIN SODIUM,PORCINE 10,000 UNIT in SODIUM CHLORIDE 0.9% 1,000 ML IRRIGATION PRN (07:00)
[2022-06-02] MEDS ORDERED: HEPARIN SODIUM 1,000 UN/ML (10ML VL) ONE (07:35)
[2022-06-02] MEDS ORDERED: VERAPAMIL 2.5 MG/ML 2 ML AMP ONE (07:35)
[2022-06-02] MEDS ORDERED: ASPIRIN 81 MG ONE (07:41)
[2022-06-02] MEDS ORDERED: IV FLUID CONTINUATION 1,000 ML IV ONE (07:48)
[2022-06-02] MEDS ORDERED: ASPIRIN 81 MG PO ONE (07:48)
[2022-06-02] MEDS ORDERED: fentaNYL (PF) 50 MCG/ML 2 ML AMP ONE (08:12)
[2022-06-02] MEDS ORDERED: LIDOCAINE 1% INJ 10MG/ML (5 ML VIAL-PF) SQ ONE ×2 (08:13→08:15)
[2022-06-02] MEDS ORDERED: MIDAZOLAM 2 MG/2 ML VIAL IV ONE ×2 (08:15→08:20)
[2022-06-02] MEDS ORDERED: fentaNYL (PF) 50 MCG/ML 2 ML AMP IV ONE (08:15)
[2022-06-02] MEDS ORDERED: VERAPAMIL SYRINGE (5 MG/10 ML) INTRAARTER ONE (08:16)
[2022-06-02] MEDS: HEPARIN SODIUM 1,000 UN/ML (10ML VL) IV ONE ×2 (08:18→08:30)
[2022-06-02] MEDS ORDERED: CLOPIDOGREL 75 MG TAB ONE (08:45)
[2022-06-02] MEDS ORDERED: CLOPIDOGREL 75 MG TAB PO ONE (08:50)
[2022-06-02] MEDS ORDERED: IOPAMIDOL-370 125ML BTL INJ ONE (09:01)
[2022-06-02] MEDS ORDERED: ATROPINE SULFATE 0.1 MG/ML 10ML SYRINGE IV PRN (09:12)
[2022-06-02] MEDS ORDERED: RX INFO: IV CONTRAST WAS GIVEN 1 EACH MISC MISCELLANE PRN (09:12)
[2022-06-02] MEDS ORDERED: NITROGLYCERIN SL TABS 0.4 MG TAB SUBLINGUAL PRN (09:12)
[2022-06-02] MEDS ORDERED: MAG HYDROX/AL HYDROX/SIMETH 30 ML CUP PO PRN (09:12)
[2022-06-02] MEDS: SYMBICORT 160-4.5 MCG INHALER INHALATION SCH ×2 (09:12→22:20)
[2022-06-02] MEDS ORDERED: ZOLPIDEM 5 MG TAB PO PRN (09:12)
[2022-06-02] MEDS: IPRATROPIUM 0.5 MG/2.5 ML NEBU INHALATION SCH ×4 (09:13→22:20)
[2022-06-02] MEDS ORDERED: SODIUM CHLORIDE 0.9% 1,000 ML in EMPTY BAG 1 BAG IV SCH (09:15)
--- NOTE | 2022-06-02 09:21 | P.PCN ---
Date of Procedure: 06/02/22 Operative Findings: CARDIAC CATHETERIZATION AND PERCUTANEOUS CORONARY INTERVENTION PERFORMING PHYSICIAN: Baron Peñaloza MD, [facility] PROCEDURE PERFORMED: 1. Selective right and left coronary angiogram 2. iFR of the left anterior descending artery 3. Successful stenting of proximal LAD using 3.5 x 18 mm Xience APRIL which was postdilated using 4 mm balloon with an excellent angiographic results 4. Intravascular ultrasound of the LAD INDICATION: Acute non-ST elevation myocardial infarction in this 87-year-old gentleman who is known to have intermedius triple-vessel CAD based on heart catheterization was performed in [address] Myers regularly COMPLICATION: None APPROACH: Right radial artery LEVEL OF SEDATION: Moderate with the sedation time off 50 minutes PROCEDURE DESCRIPTION: After obtaining an informed consent the patient was brought to the cardiac mason tender restoration labor. The right radial artery was cannulated using micropuncture technique, the micropuncture wire passed easily then I placed a 6-Israeli sheath. I gave the patient 2 mg of verapamil intra-arterial and a total of 6000 use of heparin was given in 2 sessions at 3008 time with continuous ACT monitoring throughout the case. Subsequently I did selective right and left coronary angiogram using JR4 and JL 4 catheters. After that I did FFR of the left anterior descending artery. After that we did intervene on the LAD. The procedure was completed without any complications SELECTIVE CORONARY ANGIOGRAM: The right coronary artery: Large caliber vessel and a dominant vessel. The mid RCA is a stented with mild to moderate in-stent restenosis noted. Left main: His angiographically normal. Bifurcates into an LCx and LAD The left circumflex: Large caliber vessel nondominant vessel. The LCx has intermediate lesion appeared to be in the range of 40-50%. The left anterior descending artery: Large caliber vessel. The proximal LAD has intermediate lesion appeared to be in the range of 60%. On the LOYA caudal view of the lesion appeared to be concerning. The LAD proximally gives rises into a large diagonal branch which appeared to be angiographically normal. The mid and distal LAD appears to have mild disease only. The LAD doesn't reach the apex. PCI OF THE LAD: Initially to assess if the lesion in the LAD is flow-limiting or no, we decided to pursue with an FFR of the LAD. Anticoagulation was achieved using heparin with continuous ACT monitoring. After that and after zeroing the Doppler wire and equalizing between the Doppler wire and the guiding catheter which was JL4 guiding catheter I did initially iFR of the LAD and that came in to be ischemic 0.78. At that point I decided to intervene on the LAD. Balloon angioplasty was performed using 3.5 x 15 mm balloon which was inflated under 14 manda for 20 seconds. Subsequently I deployed 3.5 x 18 mm stent where the stent was positioned under fluoroscopy guidance and deployed under 18 manda for 20 seconds. Postdilatation was performed using 4 mm noncompliant balloon after an angiogram was performed and showed that the stent was probably not well opposed to the wall. After postdilatation was performed using 4 mm balloon and angiogram was performed and showed possible proximal edge dissection. I did intravascular ultrasound and that showed no evidence of edge dissection and the stent was well opposed. At that point I decided to stop. The procedure was completed without any complication. Final angiogram was performed and showed EARNESTINE-3 flow in the LAD. The procedure was completed without any complication CONCLUSION: 1. 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 Intermediate lesion involving the proximal LAD appeared to be concerning on the LOYA caudal view. iFR was performed and came in to be ischemic. Successful stenting of the LAD was performed POSTPROCEDURE MANAGEMENT: #1 dual antiplatelet therapy with aspirin and Plavix for at least 6 month and preferably 12 mild #2 aggressive cholesterol control #3 follow-up with the patient
--- NOTE | 2022-06-02 09:46 | CA ---
Transthoracic Echo Report Name: Ruiz Bright Age: 87 Gender: M : 1935 Exam Date: 06/01/2022 14:03 Exam Location: [facility] Ht (in): 69 Wt (lb): 153 Ordering Physician: Irina Russo Attending/Referring Phys: Planning Management It Specialist Marylou Flanagan RDCS Procedure CPT: Indications: Worsening shortness of breath, Aortic stenosis Cardiac Hx: Echo Done . Technical Quality: Good Contrast 1: Total Dose (mL): Contrast 2: Total Dose (mL): MEASUREMENTS (Male / Female) Normal Values 2D ECHO LV Diastolic Diameter PLAX 4.3 cm 4.2 - 5.9 / 3.9 - 5.3 cm LV Systolic Diameter PLAX 3.4 cm IVS Diastolic Thickness 1.4 cm 0.6 - 1.0 / 0.6 - 0.9 cm LVPW Diastolic Thickness 1.3 cm 0.6 - 1.0 / 0.6 - 0.9 cm LV Relative Wall Thickness 0.6 RV Internal Dim ED PLAX 2.6 cm LVOT Diameter 3.5 cm LA Systolic Diameter LX 2.2 cm 3.0 - 4.0 / 2.7 - 3.8 cm M-MODE Aortic Root Diameter MM 3.1 cm LA Systolic Diameter MM 3.7 cm LA Ao Ratio MM 1.2 MV E Point Septal Separation 0.5 cm AV Cusp Separation MM 0.9 cm DOPPLER AV Peak Velocity 263.4 cm/s AV Peak Gradient 29.0 mmHg AV Mean Velocity 198.2 cm/s AV Mean Gradient 17.4 mmHg AV Velocity Time Integral 54.9 cm LVOT Peak Velocity 102.7 cm/s LVOT Peak Gradient 4.2 mmHg AV Area Cont Eq pk 3.7 cm??? MV Area PHT 2.1 cm??? Mitral E Point Velocity 82.4 cm/s Mitral A Point Velocity 100.5 cm/s Mitral E to A Ratio 0.8 MV Deceleration Time 365.1 ms MV E' Velocity 4.1 cm/s Mitral E to MV E' Ratio 20.1 FINDINGS Left Ventricle Mildly increased septal wall thickness. Left ventricular ejection fraction is estimated at 55%. Right Ventricle Normal right ventricular size and function. Right ventricular systolic pressure within normal limits. Right Atrium Normal right atrial size. Left Atrium Normal left atrial size. Mitral Valve Structurally normal mitral valve. Mitral valve thickened. Mild mitral regurgitation. Aortic Valve Moderate aortic stenosis with a peak gradient of 29 mmHg and a mean gradient of 18 mmHg. Tricuspid Valve Structurally normal tricuspid valve. Pulmonic Valve Pulmonic valve not well visualized. Pericardium Normal pericardium. Aorta Normal size aortic root and proximal ascending aorta. CONCLUSIONS Left ventricular ejection fraction 55% Mildly increased left ventricular wall thickness RVSP normal Mild mitral regurgitation Moderate aortic stenosis with mean gradient of 18 No pericardial effusion Previewed by: Dr. Keyur Liz DO (Electronically Signed) Final Date: 02 June 2022 09:45
[2022-06-02] MEDS: ENOXAPARIN 40 MG/0.4 ML SYRINGE SQ SCH (10:04)
[2022-06-02] MEDS: ESCITALOPRAM 5 MG TAB PO SCH (10:04)
[2022-06-02] MEDS: FUROSEMIDE 20 MG TAB PO SCH (10:05)
[2022-06-02] MEDS: ISOSORBIDE MONONITRATE 20 MG TAB PO SCH ×2 (10:05→21:07)
[2022-06-02] MEDS: predniSONE 5 MG TAB PO SCH (10:05)
[2022-06-02 10:49] LABS: Basophils % (A) 0 %; Eosinophils # (A) 0.2 k/uL (0-0.7); Eosinophils % (A) 2 %; HCT 38.5 % (39.0-53.0); HGB 13.2 gm/dL (13.0-17.5); Lymphocytes % (A) 29 %; MCH 33.3 pg (25.0-35.0); MCHC 34.2 g/dL (31.0-37.0); MCV 97.2 fL (80.0-100.0); Mean Platelet Volume 7.8; Monocytes # (A) 0.4 k/uL (0-1.0); Monocytes % (A) 4 %; Neutrophils # (A) 6.6 k/uL (1.3-7.7); Neutrophils % (A) 64 %; Platelet Count 204 k/uL (150-450); RBC 3.96 m/uL (4.30-5.90); RDW 13.4 % (11.5-15.5); WBC 10.3 k/uL (3.8-10.6)
[2022-06-02 12:10] LABS: African American GFR (CKD) >90 (>60 ml/min/1.73 sqM); Anion Gap 7 mmol/L; Blood Urea Nitrogen 23 mg/dL (9-20); Calcium 8.4 mg/dL (8.4-10.2); Carbon Dioxide 19 mmol/L (22-30); Chloride 110 mmol/L (98-107); Glucose 124 mg/dL (74-99); Non-African American GFR(CKD) 83 (>60 ml/min/1.73 sqM); Sodium 136 mmol/L (137-145)
[2022-06-02 12:16] LABS: Potassium 4.5 mmol/L (3.5-5.1)
[2022-06-02 14:18] VITALS: BMI 21.9
[2022-06-02] MEDS: SODIUM CHLORIDE 0.9% 1,000 ML in EMPTY BAG 1 BAG IV SCH (18:37)
[2022-06-02] MEDS: METOPROLOL SUCCINATE (ER) 25 MG TAB.ER.24H PO SCH (21:07)
[2022-06-02] MEDS: FINASTERIDE 5 MG TAB PO SCH (21:07)
[2022-06-03] MEDS: SODIUM CHLORIDE 0.9% 1,000 ML in EMPTY BAG 1 BAG IV SCH (00:46)
[2022-06-03] MEDS ORDERED: CLOPIDOGREL 75 MG TAB PO SCH (09:00)
[2022-06-03] MEDS: TAMSULOSIN 0.4 MG CAP.ER.24H PO SCH (09:17)
[2022-06-03] MEDS: ENOXAPARIN 40 MG/0.4 ML SYRINGE SQ SCH (09:17)
[2022-06-03] MEDS: ATORVASTATIN 80 MG TAB PO SCH (09:17)
[2022-06-03] MEDS: lisinopriL 10 MG TAB PO SCH (09:18)
[2022-06-03] MEDS: ASPIRIN 81 MG PO SCH (09:18)
[2022-06-03] MEDS: ISOSORBIDE MONONITRATE 20 MG TAB PO SCH (09:18)
[2022-06-03] MEDS: ESCITALOPRAM 5 MG TAB PO SCH (09:18)
[2022-06-03] MEDS: predniSONE 5 MG TAB PO SCH (09:18)
[2022-06-03] MEDS: SYMBICORT 160-4.5 MCG INHALER INHALATION SCH (09:27)
[2022-06-03] MEDS: IPRATROPIUM 0.5 MG/2.5 ML NEBU INHALATION SCH (09:27)
--- NOTE | 2022-06-03 10:02 | P.HPIM ---
History of Present Illness This is a pleasant 87 years old male with past medical history of hyperlipidemia, hypertension, obstructive sleep apnea Presents with shortness of breath and chest pain evaluated by code enforcement officer and found to have elevated troponin and symptomatic bradycardia, patient underwent urgent cardiac cath and there was intermediate lesion involving the proximal LAD and patient underwent successful stenting. Patient states that his chest pain or dyspnea are improved significantly today, he denies any other symptoms, no abdominal or urinary symptoms. But patient was noticed to be very shaky and very weak, patient was educated that he was started on dual antiplatelet therapy with aspirin and Plavix and risk of bleeding and benefits are explained for him and he agrees to the plan. However patient felt unsafe to go home with this weakness at risk of falling. Air was report of falling at home with back pain but this forming patient denies any back pain for me, he denies any other pain. No abdominal pain or headache or weakness or numbness. No dizziness. No urinary complaints by the patient. His heart rate improved and currently 52-56. He is saturating 96% on room air, blood pressure 168/74 and patient is afebrile. CBC is unremarkable. Sodium slightly low at 136, BUN elevated 23, creatinine normal 0.7. Glucose 124. Chest x-ray: COPD but no acute process Echocardiogram: EF more than 55% with moderate aortic stenosis Review of Systems Review of systems CONSTITUTIONAL: No fever, no malaise HEENT: No recent visual problems or hearing problems. Denied any sore throat. CARDIOVASCULAR: No orthopnea, PND, no palpitations, no syncope. PULMONARY: No shortness of breath, no cough, no hemoptysis. GASTROINTESTINAL: No diarrhea, no nausea, no vomiting, no abdominal pain. Normoactive bowel sounds. NEUROLOGICAL: No headaches, no weakness, no numbness. HEMATOLOGICAL: Denies any bleeding or petechiae. GENITOURINARY: Denies any burning micturition, frequency, or urgency. MUSCULOSKELETAL/RHEUMATOLOGICAL: Denies any joint pain, swelling, or any muscle pain. ENDOCRINE: Denies any polyuria or polydipsia. 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 has 1 pet dog. pt uses cane when outdoors, drives. no home care services, . pt served in [employer] from [id number]. worked for [employer] from 1962 to 1991. Smoking Status: Former smoker Past Alcohol Use History: None Reported Additional Past Alcohol Use History / Comment(s): QUIT SMOKING IN 1989, SMOKED SINCE AGE 18 (1952) SMOKED 1 PPD, past heavy etoh but quit 1986. Past Drug Use History: None Reported - Past Family History Father Family Medical History: Myocardial Infarction ([place]) Additional Family Medical History / Comment(s): Several mi's, but from complications of pedestrain/mva-head injury. Mother Family Medical History: CVA/TIA Daughter(s) Family Medical History: Diabetes Mellitus Medications and Allergies Home Medications Medication Instructions Recorded Confirmed Type Isosorbide Mononitrate [Ismo] 20 mg PO BID 03/25/14 05/31/22 History Atorvastatin Calcium [Lipitor] 80 mg PO DAILY 08/12/18 05/31/22 History Finasteride [Proscar] 5 mg PO HS 08/12/18 05/31/22 History Tamsulosin [Flomax] 0.4 mg PO DAILY 12/07/19 05/31/22 History Aspirin EC [Ecotrin Low Dose] 81 mg PO HS 06/12/21 05/31/22 History Escitalopram [Lexapro] 5 mg PO DAILY 02/20/22 05/31/22 History Furosemide [Lasix] 20 mg PO MOWEFR 02/20/22 05/31/22 History Potassium Chloride [Klor-Con M20] 20 meq PO MOWEFR 02/20/22 05/31/22 History lisinopriL [Zestril] 10 mg PO DAILY 02/20/22 05/31/22 History Albuterol Sulfate [Albuterol 2 puff PO Q6H PRN 05/31/22 05/31/22 History Sulfate Hfa] Budesonide/Glycopyr/Formoterol 2 puff INHALATION RT-BID 05/31/22 05/31/22 History [Breztri Aerosphere Inhaler] predniSONE 5 mg PO DAILY 05/31/22 05/31/22 History Clopidogrel [Plavix] 75 mg PO DAILY #90 tab 06/02/22 Rx ALPRAZolam [Xanax] 0.5 mg PO Q6HR PRN tab 06/03/22 Rx Metoprolol Succinate (ER) [Toprol 25 mg PO HS #90 tab 06/03/22 Rx XL] Nitroglycerin Sl Tabs [Nitrostat] 0.4 mg SUBLINGUAL Q5M PRN #25 tab 06/03/22 Rx Allergies Allergy/AdvReac Type Severity Reaction Status Date / Time adhesive tape Allergy pulls skin Verified 05/31/22 13:53 off adhesive dressings Allergy pulls skin Uncoded 05/31/22 13:53 off Physical Exam Vitals: Vital Signs Temp Pulse Pulse Resp BP Pulse Ox 06/03/22 09:39 56 L 06/03/22 09:29 95 06/03/22 09:27 52 L 06/03/22 04:00 98.6 F 50 L 20 168/74 96 06/03/22 02:00 60 18 06/02/22 23:53 98.1 F 60 18 142/65 96 06/02/22 20:00 98 F 54 L 18 168/76 97 06/02/22 15:49 97.5 F L 49 L 52 L 16 139/60 96 06/02/22 15:39 60 96 06/02/22 12:57 50 L 18 113/68 98 06/02/22 12:49 56 L 06/02/22 12:41 50 L 06/02/22 11:57 50 L 18 120/58 97 06/02/22 11:46 96.9 F L 50 L 18 120/58 97 06/02/22 10:57 44 L 18 119/59 98 06/02/22 10:27 46 L 18 121/57 97 06/02/22 09:57 44 L 18 138/56 98 Intake and Output 11/23/22 11/24/22 11/24/22 22:59 06:59 14:59 Intake Total 118 Output Total 0 0 Balance 0 0 118 Intake: Oral 118 Output: Stool 0 0 Other: Voiding Method Toilet Toilet # Voids 1 4 -GENERAL: The patient is alert and oriented x3, not in any acute distress.Patient generally weak and thin built HEENT: Pupils are round and equally reacting to light. EOMI. No scleral icterus. No conjunctival pallor. Normocephalic, atraumatic. No pharyngeal erythema. No thyromegaly. CARDIOVASCULAR: S1 and S2 present. No murmurs, rubs, or gallops. PULMONARY: Chest is clear to auscultation, no wheezing or crackles. ABDOMEN: Soft, nontender, nondistended, normoactive bowel sounds. No palpable organomegaly. MUSCULOSKELETAL: No joint swelling or deformity. EXTREMITIES: No cyanosis, clubbing, or pedal edema. NEUROLOGICAL: Gross neurological examination did not reveal any focal deficits. SKIN: No rashes. no petechiae. Results CBC & Chem 7: 06/02/22 10:26 06/02/22 10:26 Labs: Abnormal Lab Results - Last 24 Hours (Table) 06/02/22 06/02/22 Range/Units 10:26 10:26 RBC 3.96 L (4.30-5.90) m/uL Hct 38.5 L (39.0-53.0) % Sodium 136 L (137-145) mmol/L Chloride 110 H (98-107) mmol/L Carbon Dioxide 19 L (22-30) mmol/L BUN 23 H (9-20) mg/dL Glucose 124 H (74-99) mg/dL Thrombosis Risk Factor Assmnt - Choose All That Apply Any of the Below Risk Factors Present?: No Each Risk Factor Represents 3 Points: Age 75 years or older Thrombosis Risk Factor Assessment Total Risk Factor Score: 3 Thrombosis Risk Factor Assessment Level: Moderate Risk Assessment and Plan Assessment: Unstable angina status post PCI to [place] LAD generalized weakness and deconditioning Moderate aortic stenosis Hyperlipidemia Hypertension Plan: patient wants to be discharged home today however I explained for the patient the importance of getting strengthening and PT/OT continue with aspirin and Plavix, risks benefits are explained for the patient and he verbalized understanding and acceptance Lombardi Developer on the case Check urine analysis Labs and medication were reviewed.. Continue same treatment. Continue with symptomatic treatment. Resume home medication. Monitor labs and vitals. DVT and GI prophylaxis. Further recommendations as per clinical course of the p atient DVT prophylaxis: Subcutaneous Lovenox GI Prophylaxis: Pepcid PT/OT: Pending Prognosis is guarded
[2022-06-03 10:04] VITALS: BP 131/63; PULSE 54; RESP 18; TEMP 97.9
--- NOTE | 2022-06-03 10:59 | P.PN ---
Subjective This is a pleasant 87-year-old gentleman who follows in the office with Dr. Myers. The past medical history significant for CAD, status post stenting of the RCA in 2012 and mid LAD 2018 with most recent cardiac catheterization from November 2019 showing mild to moderate triple-vessel disease with calcified coronary arteries and patent stents, hypertension, hyperlipidemia and prior nicotine dependence. Presented to the emergency department with complaints of shortness of breath. He states he woke up 2 night ago, short of breath, he states he could not get comfortable in bed, and his called EMS because he felt as if he could not breathe. He denies any chest pain, palpitations, nausea, vomiting, diaphoresis. He states his symptoms improved once EMS placed oxygen on him. He has had no further episodes of shortness of breath. He does endorse since February having symptoms of increased fatigue, some exertional shortness of breath and not feeling well. He denies any cough, fever, or chills. He denies any LE edema. He cannot recall what his symptoms were when he had his stenting in the past. He denies any history of COPD or asthma or stroke. He denies any current tobacco use. DIAGNOSTICS * EKG reveals sinus bradycardia, HR 45 * Echocardiogram 02/2022 revealed EF of 5055%, moderate aortic stenosis with a peak/mean gradient of 39 mmHg/23 mmHg * Telemetry tracings indicate sinus bradycardia with HR 46-50s. * Chest xray no acute cardiopulmonary process. * Laboratory reviewed, sodium 140, potassium 4.3, BUN 23, serum creatinine 1.0, troponin negative, proBNP 294, WBC 8.0, hemoglobin 14.1, platelets 221. * Current home cardiac medications include Lasix 20 mg Tuesday, potassium chloride, lisinopril 10 mg daily, propanolol 10 mg daily, aspirin 81 mg nightly, Imdur 20 mg twice a day, atorvastatin 80 mg daily * Cardiac catheterization November 2019: mild to moderate triple-vessel disease with calcified coronary arteries and patent stents in RCA and LAD. 06/03 Patient seen and examined. Denies any chest pain or pressure. Patient underwent heart catheterization yesterday with iFR and stenting of LAD. Echocardiogram reviewed with left ventricular ejection fraction 55% with moderate aortic stenosis PHYSICAL EXAMINATION Vitals reviewed CONSTITUTIONAL: No apparent distress. HEENT: Head is normocephalic. Pupils are equal, round. Sclerae anicteric. Mucous membranes of the mouth are moist. No JVD. No carotid bruit. CHEST EXAMINATION: Lungs are clear to auscultation. No chest wall tenderness is noted on palpation or with deep breathing. HEART EXAMINATION: Regular rate and rhythm. S1, S2 heard. No murmurs, gallops or rub. ABDOMEN: Soft, nontender. Positive bowel sounds. EXTREMITIES: 2+ peripheral pulses, no lower extremity edema and no calf tenderness. NEUROLOGIC EXAMINATION: Patient is awake, alert and oriented x3. ASSESSMENT Shortness of breath Elevated troponin, rule out ACS Sinus bradycardia Moderate aortic stenosis Hypertension Coronary artery disease status post prior PCI of the RCA 2012 and mid LAD 2018 Dyslipidemia Prior tobacco use PLAN Patient did have heart catheterization with LAD lesion and underwent stenting. Echocardiogram revealed preserved EF 55%. Currently today feels well. Continue to 1 platelets. Patient appears stable for discharge home today. Objective - Vital Signs Vital signs: Vital Signs Temp 97.9 F 06/03/22 08:00 Pulse 56 L 06/03/22 09:39 Resp 18 06/03/22 08:00 BP 131/63 06/03/22 08:00 Pulse Ox 95 06/03/22 09:29 FiO2 Intake & Output 06/02/22 06/03/22 06/03/22 18:59 06:59 18:59 Intake Total 175 118 Output Total 0 0 Balance 175 0 118 Weight 67.5 kg Intake: IV 175 Oral 118 Output: Stool 0 0 Other: Voiding Method Urinal Toilet Toilet # Voids 2 4 - Labs CBC & Chem 7: 06/02/22 10:26 06/02/22 10:26 Labs: Abnormal Lab Results - Last 24 Hours (Table) 06/02/22 Range/Units 10:26 Sodium 136 L (137-145) mmol/L Chloride 110 H (98-107) mmol/L Carbon Dioxide 19 L (22-30) mmol/L BUN 23 H (9-20) mg/dL Glucose 124 H (74-99) mg/dL
[2022-06-03 11:40] LABS: African American GFR (CKD) >90 (>60 ml/min/1.73 sqM); Anion Gap 6 mmol/L; Blood Urea Nitrogen 18 mg/dL (9-20); Calcium 8.5 mg/dL (8.4-10.2); Carbon Dioxide 22 mmol/L (22-30); Chloride 111 mmol/L (98-107); Glucose 100 mg/dL (74-99); Non-African American GFR(CKD) 79 (>60 ml/min/1.73 sqM); Potassium 4.4 mmol/L (3.5-5.1); Sodium 139 mmol/L (137-145)
[2022-06-03] MEDS ORDERED: FAMOTIDINE 20 MG/2 ML VIAL IV SCH (21:00)
== END 2022-06-03 12:22 | disposition home or self-care (01) | DRG 247 ==
LOC: EC 11:52 → 3SCARD 13:46
PROVIDERS: ADMIT Internal Medicine; ATTEND Internal Medicine
PROC: B240ZZ3 Ultrasonography of Single Coronary Artery, Intravascular (ICD-10-PCS; 2022-06-02)
PROC: 4A033BC Measurement of Arterial Pressure, Coronary, Percutaneous Approach (ICD-10-PCS; 2022-06-02)
PROC: 027034Z Dilation of Coronary Artery, One Artery with Drug-eluting Intraluminal Device, Percutaneous Approach (ICD-10-PCS; principal; 2022-06-02 09:00)
PROC: 4A023N7 Measurement of Cardiac Sampling and Pressure, Left Heart, Percutaneous Approach (ICD-10-PCS; 2022-06-02 09:00)
PROC: B2111ZZ Fluoroscopy of Multiple Coronary Arteries using Low Osmolar Contrast (ICD-10-PCS; 2022-06-02 09:00)
PROC: B2151ZZ Fluoroscopy of Left Heart using Low Osmolar Contrast (ICD-10-PCS; 2022-06-02 09:00)
DX: I25.110 Atherosclerotic heart disease of native coronary artery with unstable angina pectoris (principal); R00.1 Bradycardia, unspecified; I10 Essential (primary) hypertension; E78.5 Hyperlipidemia, unspecified; Z87.891 Personal history of nicotine dependence; I08.2 Rheumatic disorders of both aortic and tricuspid valves; R79.89 Other specified abnormal findings of blood chemistry; I25.2 Old myocardial infarction; J44.9 Chronic obstructive pulmonary disease, unspecified; Y92.009 Unspecified place in unspecified non-institutional (private) residence as the place of occurrence of the external cause; Z79.02 Long term (current) use of antithrombotics/antiplatelets; Z79.82 Long term (current) use of aspirin; Z79.899 Other long term (current) drug therapy; Z82.49 Family history of ischemic heart disease and other diseases of the circulatory system; W19.XXXA Unspecified fall, initial encounter; Z91.81 History of falling; Z82.3 Family history of stroke; Z91.048 Other nonmedicinal substance allergy status; Z98.42 Cataract extraction status, left eye; Z98.41 Cataract extraction status, right eye; Z87.01 Personal history of pneumonia (recurrent)
CPT/HCPCS: 36415; 71046; 80048; 80053; 80061; 83735; 83880; 84484; 85025; 85610; 85730; 92978; 93005; 93306; 93454; 93799; 94640; 94760; 99285

== ENCOUNTER → 2022-11-29 | Outpatient (CLI) | payer MEDICARE ==
--- NOTE | 2022-11-29 10:16 | XR ---
EXAMINATION TYPE: XR shoulder complete RT DATE OF EXAM: 11/29/2022 CLINICAL HISTORY: pain TECHNIQUE: Three views of the right shoulder are obtained. COMPARISON: None FINDINGS: There is no acute fracture/dislocation evident. The acromioclavicular and glenohumeral rosy int spaces appear moderately narrowed. The visualized ribs are intact and unremarkable. IMPRESSION: 1. There is no acute fracture or dislocation. ICD 10 NO FRACTURE, INITIAL EVALUATION
== END | disposition home or self-care (01) ==
LOC: RADXRMAIN 09:44
PROVIDERS: ATTEND Internal Medicine
DX: M12.811 Other specific arthropathies, not elsewhere classified, right shoulder (principal)

== ENCOUNTER 2023-03-04 10:58 | Inpatient (IN) | payer MEDICARE ==
[2023-03-04 11:55] LABS: Basophils % (A) 0 %; Eosinophils # (A) 0.3 k/uL (0-0.7); Eosinophils % (A) 4 %; HCT 40.8 % (39.0-53.0); Lymphocytes # (A) 2.7 k/uL (1.0-4.8); Lymphocytes % (A) 33 %; MCH 32.7 pg (25.0-35.0); MCHC 34.4 g/dL (31.0-37.0); MCV 95.1 fL (80.0-100.0); Mean Platelet Volume 7.4; Monocytes # (A) 0.4 k/uL (0-1.0); Monocytes % (A) 5 %; Neutrophils # (A) 4.8 k/uL (1.3-7.7); Neutrophils % (A) 57 %; Platelet Count 183 k/uL (150-450); RBC 4.29 m/uL (4.30-5.90); RDW 13.1 % (11.5-15.5); WBC 8.4 k/uL (3.8-10.6)
[2023-03-04 11:59] LABS: ALT 29 U/L (4-49); AST 30 U/L (17-59); African American GFR (CKD) 85 (>60 ml/min/1.73 sqM); Albumin 3.6 g/dL (3.5-5.0); Alkaline Phosphatase 63 U/L (38-126); Anion Gap 7 mmol/L; Blood Urea Nitrogen 23 mg/dL (9-20); Carbon Dioxide 23 mmol/L (22-30); Chloride 107 mmol/L (98-107); Glucose 107 mg/dL (74-99); Non-African American GFR(CKD) 73 (>60 ml/min/1.73 sqM); Potassium 4.3 mmol/L (3.5-5.1); Sodium 137 mmol/L (137-145); Total Bilirubin 1.1 mg/dL (0.2-1.3)
[2023-03-04 12:05] LABS: Partial Thromboplastin Time 23.6 sec (22.0-30.0); Prothrombin Time 10.8 sec (9.0-12.0)
--- NOTE | 2023-03-04 12:17 | XR ---
EXAMINATION TYPE: XR chest 2V DATE OF EXAM: 03/04/2023 COMPARISON: 05/31/2022 HISTORY: 88-year-old male with bradycardia TECHNIQUE: AP and lateral views FINDINGS: Previous ACDF and posterior cervical fusion hardware. Heart is borderline in size. Hyperinflation. In terstitial prominence is a chronic appearance. Prostatic calcifications throughout the thoracic aorta . Partially visualized lower thoracolumbar fusion hardware. No consolidation or pleural effusion seen . IMPRESSION: Borderline cardiomegaly and chronic appearing changes. No acute process seen.
--- NOTE | 2023-03-04 12:23 | ED ---
General Adult HPI - General Chief complaint: Arrhythmia/Palpitations Stated complaint: PACEMAKER ISSUES Time Seen by Provider: 03/04/23 11:41 Source: patient Mode of arrival: ambulatory Limitations: no limitations - History of Present Illness Initial comments: Dictation was produced using [employer] dictation software. please excuse any grammatical, word or spelling errors. Chief Complaint: 88-year-old male sent to the emergency department by primary care physician for bradycardia History of Present Illness: 88-year-old male has multiple comorbidities he was at his primary care physician's office for evaluation of exertional dyspnea and neck pain. Patient states that he's been having worsening exertional dyspnea. He states that he is unable to walk 10 feet without feeling significantly weak. He was seen at her physician's office To Be Significantly Bradycardic 40s Consistently. Denies any chest pain. States that his symptoms are improved with rest. The ROS documented in this emergency department record has been reviewed and confirmed by me. Those systems with pertinent positive or negative responses have been documented in the HPI. All other systems are other negative and/or noncontributory. - Related Data Home Medications Medication Instructions Recorded Confirmed Isosorbide Mononitrate [Ismo] 20 mg PO BID 03/25/14 05/31/22 Atorvastatin Calcium [Lipitor] 80 mg PO DAILY 08/12/18 05/31/22 Finasteride [Proscar] 5 mg PO HS 08/12/18 05/31/22 Tamsulosin [Flomax] 0.4 mg PO DAILY 12/07/19 05/31/22 Aspirin EC [Ecotrin Low Dose] 81 mg PO HS 06/12/21 05/31/22 Escitalopram [Lexapro] 5 mg PO DAILY 02/20/22 05/31/22 Furosemide [Lasix] 20 mg PO MOWEFR 02/20/22 05/31/22 Potassium Chloride [Klor-Con M20] 20 meq PO MOWEFR 02/20/22 05/31/22 lisinopriL [Zestril] 10 mg PO DAILY 02/20/22 05/31/22 Albuterol Sulfate [Albuterol 2 puff PO Q6H PRN 05/31/22 05/31/22 Sulfate Hfa] Budesonide/Glycopyr/Formoterol 2 puff INHALATION RT-BID 05/31/22 05/31/22 [Breztri Aerosphere Inhaler] predniSONE 5 mg PO DAILY 05/31/22 05/31/22 Previous Rx's Medication Instructions Recorded Clopidogrel [Plavix] 75 mg PO DAILY #90 tab 06/02/22 ALPRAZolam [Xanax] 0.5 mg PO Q6HR PRN tab 06/03/22 Metoprolol Succinate (ER) [Toprol 25 mg PO HS #90 tab 06/03/22 XL] Nitroglycerin Sl Tabs [Nitrostat] 0.4 mg SUBLINGUAL Q5M PRN #25 tab 06/03/22 Allergies Allergy/AdvReac Type Severity Reaction Status Date / Time adhesive tape Allergy pulls skin Verified 03/04/23 11:12 off adhesive dressings Allergy pulls skin Uncoded 03/04/23 11:12 off Review of Systems ROS Statement: Those systems with pertinent positive or pertinent negative responses have been documented in the HPI. ROS Other: All systems not noted in ROS Statement are negative. Past Medical History Past Medical History: Hyperlipidemia, Hypertension, Myocardial Infarction ([place]), Osteoarthritis (OA), Pneumonia Additional Past Medical History / Comment(s): has some balance issue, uses cane when outside home, sinus problems, Last Myocardial Infarction Date:: 1993 History of Any Multi-Drug Resistant Organisms: None Reported Past Surgical History: Back Surgery, Heart Catheterization, Tonsillectomy Additional Past Surgical History / Comment(s): 2 Neck surgery, STATES HAS "P LASTIC" IN NECK, METAL IN BACK, STENT IN HEART X2, NORTH CATARACTS, Past Anesthesia/Blood Transfusion Reactions: No Reported Reaction Additional Past Anesthesia/Blood Transfusion Reaction / Comment(s): denies PONV Date of Last Stent Placement:: 2012 Past Psychological History: No Psychological Hx Reported Smoking Status: Former smoker Past Alcohol Use History: None Reported Past Drug Use History: None Reported - Past Family History Father Family Medical History: Myocardial Infarction ([place]) Additional Family Medical History / Comment(s): Several mi's, but from complications of pedestrain/mva-head injury. Mother Family Medical History: CVA/TIA Daughter(s) Family Medical History: Diabetes Mellitus General Exam - General Exam Comments Initial Comments: PHYSICAL EXAM: General Impression: Alert and oriented x3, not in acute distress HEENT: Normocephalic atraumatic, extra-ocular movements intact, pupils equal and reactive to light bilaterally, mucous membranes moist. Cardiovascular: Bradycardic Chest: Able to complete full sentences, no retractions, no tachypnea Abdomen: abdomen soft, non-tender, non-distended, no organomegaly Musculoskeletal: Pulses present and equal in all extremities, no peripheral edema Motor: no focal deficits noted Neurological: CN II-XII grossly intact, no focal motor or sensory deficits noted Skin: Intact with no visualized rashes Psych: Normal affect and mood Limitations: no limitations Course Vital Signs 03/04/23 11:08 Temperature 98 F Pulse Rate 40 L Respiratory 18 Rate Blood Pressure 170/66 O2 Sat by Pulse 97 Oximetry EKG Findings - EKG Comments: EKG Findings:: My EKG interpretation: Ventricular rate 41, sinus bradycardia, pO2 42, QRS 113, QTc 4:30. No ID prolongation, no QTC prolongation, no ST or T- wave changes noted. Overall, this EKG is unremarkable Medical Decision Making - Medical Decision Making Was pt. sent in by a medical professional or institution (, PA, DOCK COORDINATOR, urgent care, hospital, or retirement...) When possible be specific @ -No Did you speak to anyone other than the patient for history (EMS, parent, family, police, friend...)? What history was obtained from this source @ -No Did you review nursing and triage notes (agree or disagree)? Why? @ -I reviewed and agree with nursing and triage notes Were old charts reviewed (outside hosp., previous admission, EMS record, old EKG, old radiological studies, urgent care reports/EKG's, retirement records)? Report findings @ -No old charts were reviewed Differential Diagnosis (chest pain, altered mental status, abdominal pain women, abdominal pain men, vaginal bleeding, musculoskeletal, weakness, fever, dyspnea, syncope, headache, dizziness, GI bleed, back pain, seizure, CVA, palpatations, mental health)? @ -Differential Dyspnea: Coronary syndrome, arrhythmia, tamponade, asthma, COPD, pulmonary embolism, pneumonia, pneumothorax, pulmonary effusion, anaphylaxis, diabetic ketoacidosis, flailed chest, pulmonary contusion, diaphragmatic rupture, anemia, neuromuscular, this is not meant to be an all-inclusive list. EKG interpreted by me (3pts min.). @ -See above X-rays interpreted by me (1pt min.). @ -Two-view chest x-ray is unremarkable CT interpreted by me (1pt min.). @ -None done U/S interpreted by me (1pt. min.). @ -None done What testing was considered but not performed or refused? (CT, X-rays, U/S, labs)? Why? @ -None What meds were considered but not given or refused? Why? @ -None Did you discuss the management of the patient with other professionals (professionals i.e. , PA, DOCK COORDINATOR, lab, RT, psych nurse, social organization professor, real estate financial analyst, teacher, air defense control officer, case management specialist)? Give summary @ -Case discussed with Dr. Michel who is willing to accept patients care for adm ission. Was smoking cessation discussed for >3mins.? @ -No Was critical care preformed (if so, how long)? @ -33 minutes Were there social determinants of health that impacted care today? How? (Homelessness, low income, unemployed, alcoholism, drug addiction, transportation, low edu. Level, literacy, decrease access to med. care, shelter, rehab)? @ -No Was there de-escalation of care discussed even if they declined (Discuss DNR or withdrawal of care, Hospice)? DNR status @ -No What co-morbidities impacted this encounter? (DM, HTN, Smoking, COPD, CAD, Cancer, CVA, ARF, Chemo, Hep., AIDS, mental health diagnosis, sleep apnea, mo rbid obesity)? @ -None Was patient admitted / discharged? Hospital course, mention meds given and route, prescriptions, significant lab abnormalities, going to OR and other pertinent info. @ -88-year-old male presents to the emergency department for bradycardia from primary care physician's office. Vital signs shows bradycardia in the 40s. Patient monitored with average in the 30-40 range. Patient is asymptomatic at rest. His blood pressures within acceptable limits. Labs unremarkable. Patient be admitted for consultation cardiology. Cardiology team was notified of patient. There isn't any obvious EKG or dining room captain findings to suggest urgent or emergent pacemaker placement Undiagnosed new problem with uncertain prognosis? @ -No Drug Therapy requiring intensive monitoring for toxicity (Heparin, Nitro, Insulin, Cardizem)? @ -No Were any procedures done? @ -No Diagnosis/symptom? Acute, or Chronic, or Acute on Chronic? Uncomplicated (without systemic symptoms) or Complicated (systemic symptoms)? @ -Symptomatic bradycardia Side effects of treatment? @ -No Exacerbation, Progression, or Severe Exacerbation? @ -No Poses a threat to life or bodily function? How? (Chest pain, [place], [place], pneumonia, PE, COPD, DKA, ARF, appy, cholecystitis, CVA, Diverticulitis, Homicidal, Suzanne cidal, threat to staff... and all critical care pts) @ -yes - Lab Data Result diagrams: 03/04/23 11:33 03/04/23 11:33 Lab Results 03/04/23 03/04/23 03/04/23 Range/Units 11:33 11:33 11:33 WBC 8.4 (3.8-10.6) k/uL RBC 4.29 L (4.30-5.90) m/uL Hgb 14.0 (13.0-17.5) gm/dL Hct 40.8 (39.0-53.0) % MCV 95.1 (80.0-100.0) fL MCH 32.7 (25.0-35.0) pg MCHC 34.4 (31.0-37.0) g/dL RDW 13.1 (11.5-15.5) % Plt Count 183 (150-450) k/uL MPV 7.4 Neutrophils % 57 % Lymphocytes % 33 % Monocytes % 5 % Eosinophils % 4 % Basophils % 0 % Neutrophils # 4.8 (1.3-7.7) k/uL Lymphocytes # 2.7 (1.0-4.8) k/uL Monocytes # 0.4 (0-1.0) k/uL Eosinophils # 0.3 (0-0.7) k/uL Basophils # 0.0 (0-0.2) k/uL PT 10.8 (9.0-12.0) sec INR 1.0 (<1.2) APTT 23.6 (22.0-30.0) sec Sodium 137 (137-145) mmol/L Potassium 4.3 (3.5-5.1) mmol/L Chloride 107 (98-107) mmol/L Carbon Dioxide 23 (22-30) mmol/L Anion Gap 7 mmol/L BUN 23 H (9-20) mg/dL Creatinine 0.94 (0.66-1.25) mg/dL Est GFR (CKD-EPI)AfAm 85 (>60 ml/min/1.73 sqM) Est GFR (CKD-EPI)NonAf 73 (>60 ml/min/1.73 sqM) Glucose 107 H (74-99) mg/dL Calcium 9.0 (8.4-10.2) mg/dL Magnesium 2.0 (1.6-2.3) mg/dL Total Bilirubin 1.1 (0.2-1.3) mg/dL AST 30 (17-59) U/L ALT 29 (4-49) U/L Alkaline Phosphatase 63 (38-126) U/L Troponin I (0.000-0.034) ng/mL Total Protein 6.0 L (6.3-8.2) g/dL Albumin 3.6 (3.5-5.0) g/dL 03/04/23 Range/Units 11:33 WBC (3.8-10.6) k/uL RBC (4.30-5.90) m/uL Hgb (13.0-17.5) gm/dL Hct (39.0-53.0) % MCV (80.0-100.0) fL MCH (25.0-35.0) pg MCHC (31.0-37.0) g/dL RDW (11.5-15.5) % Plt Count (150-450) k/uL MPV Neutrophils % % Lymphocytes % % Monocytes % % Eosinophils % % Basophils % % Neutrophils # (1.3-7.7) k/uL Lymphocytes # (1.0-4.8) k/uL Monocytes # (0-1.0) k/uL Eosinophils # (0-0.7) k/uL Basophils # (0-0.2) k/uL PT (9.0-12.0) sec INR (<1.2) APTT (22.0-30.0) sec Sodium (137-145) mmol/L Potassium (3.5-5.1) mmol/L Chloride (98-107) mmol/L Carbon Dioxide (22-30) mmol/L Anion Gap mmol/L BUN (9-20) mg/dL Creatinine (0.66-1.25) mg/dL Est GFR (CKD-EPI)AfAm (>60 ml/min/1.73 sqM) Est GFR (CKD-EPI)NonAf (>60 ml/min/1.73 sqM) Glucose (74-99) mg/dL Calcium (8.4-10.2) mg/dL Magnesium (1.6-2.3) mg/dL Total Bilirubin (0.2-1.3) mg/dL AST (17-59) U/L ALT (4-49) U/L Alkaline Phosphatase (38-126) U/L Troponin I 0.013 (0.000-0.034) ng/mL Total Protein (6.3-8.2) g/dL Albumin (3.5-5.0) g/dL Disposition Clinical Impression: Bradycardia Disposition: ADMITTED IP TO THIS [facility] Condition: Serious Referrals: Nayeli Michel MD [Primary Care Provider] - 1-2 days Decision Time: 12:30
[2023-03-04] MEDS ORDERED: NALOXONE 0.4 MG/ML 1 ML VIAL IV PRN (12:24)
[2023-03-04] MEDS: SODIUM CHLORIDE 0.9% 1,000 ML IV SCH (14:03)
[2023-03-04] MEDS ORDERED: ALBUTEROL NEBULIZED 2.5 MG/3 ML INHALATION PRN (14:44)
[2023-03-04] MEDS ORDERED: NITROGLYCERIN SL TABS 0.4 MG TAB SUBLINGUAL PRN (15:13)
--- NOTE | 2023-03-04 15:31 | P.CRDCN ---
History of Present Illness Consult date: 03/04/23 History of present illness: HISTORY OF PRESENTING ILLNESS This is a pleasant 87-year-old with past medical history significant for CAD status post PCI to RCA in 2012, mid LAD 2018, most recent cath May 2022, PCI to mid LAD. Also history of hypertension, dyslipidemia, prior nicotine dependence. He follows in the office with Dr. Peñaloza/ifrah. At home is on lisinopril 10 mg, aspirin, Plavix, atorvastatin, metoprolol succinate 25 mg daily. At-home patient has been feeling weak and short of breath over last few days. His baseline shortness of breath is somewhat near NYHA class II but lately he was getting short of breath with minimal activity like walking 100m. for this he went to his PCP today who found him to be bradycardic and referred him to the emergency room. On my evaluation today his blood pressure is 170/66, heart rate 40-45 bpm, sinus rhythm. On today's review of telemetry and ECG he does not demonstrate any blocks or pauses so far He reports that he did not make sense medications and has been taking them appropriately. He does not remember the name of his beta shayy and reports that it was started after the recent PCI in 2021. It is unsure if patient mistakenly took more than required beta shayy at home. He denies having any chest pain chest pressure palpitations lightheadedness or dizziness. He did not have any syncopal episodes. He does report having shortness of breath getting short of breath going to the bathroom or walking to his mailbox. Labs shows hemoglobin 14, creatinine 0.9, BUN 23, INR 1, troponin is negative at 0.13 PRIOR CARDIAC TESTING Last echo from May 2022 shows EF of 50-55%, moderate aortic stenosis and moderate mitral regurgitation REVIEW OF SYSTEMS 14 point review of system is negative except what is mentioned above in HPI. PHYSICAL EXAMINATION Vital signs reviewed. Head: Normocephalic. Eyes: Sclerae nonicteric. Neck: Brisk carotid upstroke, no jugular venous distention. Lungs: Mild crackles audible Heart: Regular rate and rhythm, S1-S2, no S3, mild systolic murmur audible in aortic area Abdomen: Soft nontender, positive bowel sounds no organomegaly. Extremities: No edema, intact distal pulses. ASSESSMENT Sinus bradycardia, No evidence of blocks. Unsure if patient mistakenly took more than required beta shayy. He was metoprolol succinate 25 mg daily Exertional dyspnea and shortness of breath, NYHA class III Mild HFpEF exacerbation PLAN Symptoms of generalized weakness and shortness of breath, likely from sinus arthur ycardia. No evidence of blocks of high-grade pauses Continue to monitor telemetry Hold his metoprolol Continue aspirin and Plavix and atorvastatin Tomorrow, we will check patient's chronotropic competence to see if he can demonstrate increase in heart rate with activity. If he lacks chronotropic c ompetence we will evaluated for permanent pacemaker. Patient is agreeable for permanent pacemaker if needed. Past Medical History Past Medical History: Hyperlipidemia, Hypertension, Myocardial Infarction ([place]), Osteoarthritis (OA), Pneumonia Additional Past Medical History / Comment(s): has some balance issue, uses cane when outside home, sinus problems, Last Myocardial Infarction Date:: 1993 History of Any Multi-Drug Resistant Organisms: None Reported Past Surgical History: Back Surgery, Heart Catheterization, Tonsillectomy Additional Past Surgical History / Comment(s): 2 Neck surgery, STATES HAS "PLASTIC" IN NECK, METAL IN BACK, STENT IN HEART X2, NORTH CATARACTS, Past Anesthesia/Blood Transfusion Reactions: No Reported Reaction Additional Past Anesthesia/Blood Transfusion Reaction / Comment(s): denies PONV Date of Last Stent Placement:: 2012 Past Psychological History: No Psychological Hx Reported Smoking Status: Former smoker Past Alcohol Use History: None Reported Past Drug Use History: None Reported - Past Family History Father Family Medical History: Myocardial Infarction ([place]) Additional Family Medical History / Comment(s): Several mi's, but from c omplications of pedestrain/mva-head injury. Mother Family Medical History: CVA/TIA Daughter(s) Family Medical History: Diabetes Mellitus Medications and Allergies Home Medications Medication Instructions Recorded Confirmed Type Isosorbide Mononitrate [Ismo] 20 mg PO BID 03/25/14 05/31/22 History Atorvastatin Calcium [Lipitor] 80 mg PO DAILY 08/12/18 05/31/22 History Finasteride [Proscar] 5 mg PO HS 08/12/18 05/31/22 History Tamsulosin [Flomax] 0.4 mg PO DAILY 12/07/19 05/31/22 History Aspirin EC [Ecotrin Low Dose] 81 mg PO HS 06/12/21 05/31/22 History Escitalopram [Lexapro] 5 mg PO DAILY 02/20/22 05/31/22 History Furosemide [Lasix] 20 mg PO MOWEFR 02/20/22 05/31/22 History Potassium Chloride [Klor-Con M20] 20 meq PO MOWEFR 02/20/22 05/31/22 History lisinopriL [Zestril] 10 mg PO DAILY 02/20/22 05/31/22 History Albuterol Sulfate [Albuterol 2 puff PO Q6H PRN 05/31/22 05/31/22 History Sulfate Hfa] Budesonide/Glycopyr/Formoterol 2 puff INHALATION RT-BID 05/31/22 05/31/22 History [Breztri Aerosphere Inhaler] predniSONE 5 mg PO DAILY 05/31/22 05/31/22 History Clopidogrel [Plavix] 75 mg PO DAILY #90 tab 06/02/22 Rx ALPRAZolam [Xanax] 0.5 mg PO Q6HR PRN tab 06/03/22 Rx Metoprolol Succinate (ER) [Toprol 25 mg PO HS #90 tab 06/03/22 Rx XL] Nitroglycerin Sl Tabs [Nitrostat] 0.4 mg SUBLINGUAL Q5M PRN #25 tab 06/03/22 Rx Allergies Allergy/AdvReac Type Severity Reaction Status Date / Time adhesive tape Allergy pulls skin Verified 03/04/23 11:12 off adhesive dressings Allergy pulls skin Uncoded 03/04/23 11:12 off Physical Exam Vitals: Vital Signs Temp Pulse Resp BP Pulse Ox 03/04/23 11:08 98 F 40 L 18 170/66 97 Intake and Output 03/04/23 03/04/23 03/04/23 06:59 14:59 22:59 Other: Weight 77.564 kg Results 03/04/23 11:33 03/04/23 11:33 Cardiac Enzymes 03/04/23 03/04/23 Range/Units 11:33 11:33 AST 30 (17-59) U/L Troponin I 0.013 (0.000-0.034) ng/mL Coagulation 03/04/23 Range/Units 11:33 PT 10.8 (9.0-12.0) sec APTT 23.6 (22.0-30.0) sec CBC 03/04/23 Range/Units 11:33 WBC 8.4 (3.8-10.6) k/uL RBC 4.29 L (4.30-5.90) m/uL Hgb 14.0 (13.0-17.5) gm/dL Hct 40.8 (39.0-53.0) % Plt Count 183 (150-450) k/uL Comprehensive Metabolic Panel 03/04/23 Range/Units 11:33 Sodium 137 (137-145) mmol/L Potassium 4.3 (3.5-5.1) mmol/L Chloride 107 (98-107) mmol/L Carbon Dioxide 23 (22-30) mmol/L BUN 23 H (9-20) mg/dL Creatinine 0.94 (0.66-1.25) mg/dL Glucose 107 H (74-99) mg/dL Calcium 9.0 (8.4-10.2) mg/dL AST 30 (17-59) U/L ALT 29 (4-49) U/L Alkaline Phosphatase 63 (38-126) U/L Total Protein 6.0 L (6.3-8.2) g/dL Albumin 3.6 (3.5-5.0) g/dL Current Medications Generic Name Dose Route Start Last Admin Trade Name Freq PRN Reason Stop Dose Admin Albuterol Sulfate 2.5 mg 03/04/23 14:44 Albuterol Nebulized 2.5 Mg/3 Ml INHALATION Q6H PRN Shortness Of Breath Aspirin 81 mg 03/04/23 21:00 Aspirin 81 Mg PO HS [facility] Atorvastatin Calcium 80 mg 03/05/23 09:00 Atorvastatin 80 Mg Tab PO DAILY [facility] Budesonide/Formoterol Fumarate 2 puff 03/04/23 20:00 Symbicort 160-4.5 Mcg Inhaler INHALATION RT-BID [facility] Clopidogrel Bisulfate 75 mg 03/05/23 09:00 Clopidogrel 75 Mg Tab PO DAILY [facility] Escitalopram Oxalate 5 mg 03/05/23 09:00 Escitalopram 5 Mg Tab PO DAILY [facility] Finasteride 5 mg 03/04/23 21:00 Finasteride 5 Mg Tab PO HS [facility] Furosemide 20 mg 03/04/23 16:00 Furosemide 20 Mg Tab PO [email or web address]@0900 [facility] Sodium Chloride 1,000 mls @ 20 mls/hr 03/04/23 12:30 03/04/23 14:03 Saline 0.9% IV 20 mls/hr .Q24H [facility] Administration Ipratropium [place] 0.5 mg 03/04/23 20:00 Ipratropium 0.5 Mg/2.5 Ml Nebu INHALATION RT-QID [facility] Isosorbide Mononitrate 20 mg 03/04/23 21:00 Isosorbide Mononitrate 20 Mg Tab PO BID [facility] Lisinopril 10 mg 03/05/23 09:00 Lisinopril 10 Mg Tab PO DAILY [facility] Naloxone HCl 0.2 mg 03/04/23 12:24 Naloxone 0.4 Mg/Ml 1 Ml Vial IV Q2M PRN Opioid Reversal Nitroglycerin 0.4 mg 03/04/23 15:13 Nitroglycerin Sl Tabs 0.4 Mg Tab SUBLINGUAL Q5M PRN Chest Pain Potassium Chloride 20 meq 03/04/23 16:00 Potassium Chloride Er 20 Meq Tab.Er PO [email or web address]@0900 [facility] Tamsulosin HCl 0.4 mg 03/05/23 09:00 Tamsulosin 0.4 Mg Cap.Er.24h PO DAILY [facility] Intake and Output 03/04/23 03/04/23 03/04/23 06:59 14:59 22:59 Other: Weight 77.564 kg Patient Weight 03/05/23 06:59 Weight 77.564 kg 03/04/23 11:33 03/04/23 11:33
[2023-03-04] MEDS ORDERED: POTASSIUM CHLORIDE ER 20 MEQ TAB.ER PO SCH (16:00)
[2023-03-04] MEDS ORDERED: FUROSEMIDE 20 MG TAB PO SCH (16:00)
[2023-03-04] MEDS: ISOSORBIDE MONONITRATE 20 MG TAB PO SCH (20:06)
[2023-03-04] MEDS: FINASTERIDE 5 MG TAB PO SCH (20:06)
[2023-03-04] MEDS: ASPIRIN 81 MG PO SCH (20:06)
[2023-03-05] MEDS: SYMBICORT 160-4.5 MCG INHALER INHALATION SCH ×3 (00:37→21:04)
[2023-03-05] MEDS: IPRATROPIUM 0.5 MG/2.5 ML NEBU INHALATION SCH ×3 (00:37→11:23)
[2023-03-05] MEDS ORDERED: lisinopriL 10 MG TAB PO SCH (09:00)
[2023-03-05] MEDS: TAMSULOSIN 0.4 MG CAP.ER.24H PO SCH (09:27)
[2023-03-05] MEDS: CLOPIDOGREL 75 MG TAB PO SCH (09:27)
[2023-03-05] MEDS: ESCITALOPRAM 5 MG TAB PO SCH (09:28)
[2023-03-05] MEDS: ISOSORBIDE MONONITRATE 20 MG TAB PO SCH ×2 (09:28→22:08)
[2023-03-05] MEDS: ATORVASTATIN 80 MG TAB PO SCH (09:28)
[2023-03-05] MEDS: TIOTROPIUM 2.5 MCG INHALER INHALATION SCH (11:35)
--- NOTE | 2023-03-05 11:53 | P.HPIM ---
History of Present Illness Patient returns 88-year-old male with history of coronary artery disease and recent the cardiac catheterization and stent to LAD in May 2022 and on beta shayy came in with complaints of generalized tiredness and weakness found to be in sinus bradycardia patient is admitted for symptomatic sinus bradycardia metoprolol is being held at this time patient was monitored overnight and will be evaluated for chronotropic competency tomorrow. Cardiology evaluated the patient patient denied any symptoms at this time patient tiredness and weakness improved there is no TSH available at this time. REVIEW OF SYSTEMS: CONSTITUTIONAL: As mentioned in HPI HEENT: No recent visual problems or hearing problems. Denied any sore throat. CARDIOVASCULAR: No chest pain, orthopnea, PND, no palpitations, no syncope. PULMONARY: No shortness of breath, no cough, no hemoptysis. GASTROINTESTINAL: No diarrhea, no nausea, no vomiting, no abdominal pain. NEUROLOGICAL: No headaches, no weakness, no numbness. HEMATOLOGICAL: Denies any bleeding or petechiae. GENITOURINARY: Denies any burning micturition, frequency, or urgency. MUSCULOSKELETAL/RHEUMATOLOGICAL: Denies any joint pain, swelling, or any muscle pain. ENDOCRINE: Denies any polyuria or polydipsia. The rest of the 14-point review of systems is negative. PHYSICAL EXAMINATION: GENERAL: The patient is alert and oriented x3, not in any acute distress. Well developed, well nourished. HEENT: Pupils are round and equally reacting to light. EOMI. No scleral icterus. No conjunctival pallor. Normocephalic, atraumatic. No pharyngeal erythema. No thyromegaly. CARDIOVASCULAR: S1 and S2 present. No murmurs, rubs, or gallops. PULMONARY: Chest is clear to auscultation, no wheezing or crackles. ABDOMEN: Soft, nontender, nondistended, normoactive bowel sounds. No palpable organomegaly. MUSCULOSKELETAL: No joint swelling or deformity. EXTREMITIES: No cyanosis, clubbing, or pedal edema. NEUROLOGICAL: Gross neurological examination did not reveal any focal deficits. SKIN: No rashes. Assessment and plan -Sinus bradycardia: Secondary to metoprolol which was discontinued patient will be monitored overnight and will be assessed for chronotropic competency. Car diology evaluated the patient. TSH will be obtained -Coronary artery disease: Patient will be resumed on home medications except for beta shayy -Congestive heart failure with preserved ejection fraction about any acute exacerbation -Remain -Hypertension: Blood pressure is uncontrolled will monitor him with home dose of lisinopril dose will need to be increased COPD without any acute exacerbation DVT prophylaxis: Lovenox Past Medical History Past Medical History: Hyperlipidemia, Hypertension, Myocardial Infarction ([place]), Osteoarthritis (OA), Pneumonia Additional Past Medical History / Comment(s): has some balance issue, uses cane when outside home, sinus problems, Last Myocardial Infarction Date:: 1993 History of Any Multi-Drug Resistant Organisms: None Reported Past Surgical History: Back Surgery, Heart Catheterization, Tonsillectomy Additional Past Surgical History / Comment(s): 2 Neck surgery, 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 has 1 pet dog. pt uses cane when outdoors, drives. no home care services, . pt served in [employer] from [phone]. worked for [employer] from 1962 to 1991. Smoking Status: Former smoker Past Alcohol Use History: None Reported Additional Past Alcohol Use History / Comment(s): QUIT SMOKING IN 1989, SMOKED SINCE AGE 18 (1952) SMOKED 1 PPD, past heavy etoh but quit 1986. Past Drug Use History: None Reported - Past Family History Father History Unknown: Yes Family Medical History: Myocardial Infarction ([place]) Additional Family Medical History / Comment(s): Several mi's, but from complications of pedestrain/mva-head injury. Mother History Unknown: Yes Family Medical History: CVA/TIA Daughter(s) History Unknown: Yes Family Medical History: Diabetes Mellitus Medications and Allergies Home Medications Medication Instructions Recorded Confirmed Type Isosorbide Mononitrate [Ismo] 20 mg PO BID 03/25/14 03/04/23 History Atorvastatin Calcium [Lipitor] 80 mg PO DAILY 08/12/18 03/04/23 History Finasteride [Proscar] 5 mg PO DAILY 08/12/18 03/04/23 History Tamsulosin [Flomax] 0.4 mg PO DAILY 12/07/19 03/04/23 History Aspirin EC [Ecotrin Low Dose] 81 mg PO HS 06/12/21 03/04/23 History Furosemide [Lasix] 20 mg PO MOWEFR 02/20/22 03/04/23 History Potassium Chloride [Klor-Con M20] 20 meq PO MOWEFR 02/20/22 03/04/23 History lisinopriL [Zestril] 10 mg PO DAILY 02/20/22 03/04/23 History Albuterol Sulfate [Albuterol 2 puff PO Q6H PRN 05/31/22 03/04/23 History Sulfate Hfa] Budesonide/Glycopyr/Formoterol 2 puff INHALATION RT-BID 05/31/22 03/04/23 History [Breztri Aerosphere Inhaler] Clopidogrel [Plavix] 75 mg PO DAILY #90 tab 06/02/22 03/04/23 Rx Metoprolol Succinate (ER) [Toprol 25 mg PO HS #90 tab 06/03/22 03/04/23 Rx XL] Allergies Allergy/AdvReac Type Severity Reaction Status Date / Time adhesive tape Allergy pulls skin Verified 03/04/23 15:32 off adhesive dressings Allergy pulls skin Uncoded 03/04/23 15:32 off Physical Exam Vitals: Vital Signs Temp Pulse Pulse Resp BP BP Pulse Ox 03/05/23 11:48 97.8 F 59 L 20 167/69 96 03/05/23 08:00 97.7 F 55 L 16 167/76 97 03/05/23 04:00 53 L 18 164/67 98 03/05/23 02:00 18 03/05/23 00:00 58 L 18 172/74 96 03/04/23 20:00 97.8 F 55 L 18 169/74 96 03/04/23 18:51 97.6 F 62 17 183/69 94 L 03/04/23 16:45 19 03/04/23 16:12 74 19 173/92 95 Intake and Output 03/04/23 03/05/23 03/05/23 22:59 06:59 14:59 Intake Total 200 220 Output Total 300 Balance 200 -300 220 Intake: Intake, IV Titration 40 Amount Sodium Chloride 0.9% 1, 40 000 ml @ 20 mls/hr IV . Q24H [facility] Rx#:[id number] Oral 200 180 Output: Urine 300 Other: Voiding Method Toilet Toilet Toilet # Voids 1 1 Weight 77.564 kg 74.9 kg Results CBC & Chem 7: 03/04/23 11:33 03/04/23 11:33 Labs: Abnormal Lab Results - Last 24 Hours (Table) 03/04/23 03/04/23 Range/Units 11:33 11:33 RBC 4.29 L (4.30-5.90) m/uL BUN 23 H (9-20) mg/dL Glucose 107 H (74-99) mg/dL Total Protein 6.0 L (6.3-8.2) g/dL Thrombosis Risk Factor Assmnt - Choose All That Apply Any of the Below Risk Factors Present?: No Each Risk Factor Represents 3 Points: Age 75 years or older Other congenital or acquired thrombophilia - If yes, enter type in comment: No Thrombosis Risk Factor Assessment Total Risk Factor Score: 3 Thrombosis Risk Factor Assessment Level: Moderate Risk
[2023-03-05] MEDS: SODIUM CHLORIDE 0.9% 1,000 ML IV SCH (12:02)
[2023-03-05] MEDS ORDERED: lisinopriL 20 MG TAB PO STA (15:54)
[2023-03-05] MEDS ORDERED: lisinopriL 10 MG TAB PO STA (15:54)
--- NOTE | 2023-03-05 18:01 | CA ---
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 Hall [facility] Procedure CPT: Indications: bradycardia and CHF Cardiac Hx: Technical Quality: Fair Contrast 1: Total Dose (mL): Contrast 2: Total Dose (mL): MEASUREMENTS (Male / Female) Normal Values 2D ECHO LV Diastolic Diameter PLAX 4.3 cm 4.2 - 5.9 / 3.9 - 5.3 cm LV Systolic Diameter PLAX 3.1 cm IVS Diastolic Thickness 1.2 cm 0.6 - 1.0 / 0.6 - 0.9 cm LVPW Diastolic Thickness 1.2 cm 0.6 - 1.0 / 0.6 - 0.9 cm LV Relative Wall Thickness 0.6 LVOT Diameter 2.0 cm Ascending Aorta Diameter 3.7 cm M-MODE Aortic Root Diameter MM 3.0 cm LA Systolic Diameter MM 4.5 cm LA Ao Ratio MM 1.5 AV Cusp Separation MM 1.1 cm DOPPLER AV Peak Velocity 270.0 cm/s AV Peak Gradient 29.2 mmHg AV Mean Velocity 205.3 cm/s AV Mean Gradient 18.2 mmHg AV Velocity Time Integral 71.1 cm LVOT Peak Velocity 107.7 cm/s LVOT Peak Gradient 4.6 mmHg LVOT Velocity Time Integral 27.0 cm LVOT Stroke Volume 82.5 cm??? LVOT Stroke Volume Index 42.9 ml/m??? LVOT Cardiac Index 2654.2 cm???/min???m??? AV Area Cont Eq vti 1.2 cm??? AV Area Cont Eq pk 1.2 cm??? MV Peak Velocity 155.5 cm/s MV Peak Gradient 9.7 mmHg MV Mean Velocity 85.9 cm/s MV Mean Gradient 3.5 mmHg MV Velocity Time Integral 52.3 cm Mitral E Point Velocity 80.7 cm/s Mitral A Point Velocity 144.3 cm/s Mitral E to A Ratio 0.6 MV Deceleration Time 371.9 ms LV E' Lateral Velocity 4.7 cm/s Mitral E to LV E' Lateral Ratio 17.0 LV E' Septal Velocity 3.8 cm/s Mitral E to LV E' Septal Ratio 21.3 Right Atrial Pressure 8.0 mmHg FINDINGS Left Ventricle Moderate LVH. Left ventricular cavity size normal. Left ventricular ejection fraction is estimated at 55-60%. No obvious regional wall motion abnormality Right Ventricle Mild right ventricular dilatation. Unable to estimate the right ventricular systolic pressure. Right Atrium Mild right atrial dilatation. Left Atrium Mild left atrial dilatation. Mitral Valve Structurally normal mitral valve. Mitral valve thickened. Trace mitral regurgitation. Aortic Valve Aortic valve not well visualized. Diffuse thickening of the aortic valve cusps with reduced excursion. Moderate aortic stenosis with a peak gradient of 29.16 mmHg and a mean gradient of 18.2 mmHg. Tricuspid Valve Structurally normal tricuspid valve. No tricuspid regurgitation. Pulmonic Valve Pulmonic valve not well visualized. Pericardium No pericardial effusion. Echo free space anterior to the right ventricle likely represents a fat pad. Aorta Aorta at upper limits of normal. CONCLUSIONS Left ventricular ejection fraction is estimated at 55-60%. Moderate concentric LVH No obvious regional wall motion abnormality. Moderate aortic stenosis with mean gradient of 18.2 mmHg No other major valvular abnormality Mild RV dilatation Similar findings in compared to echo from May 2022 Previewed by: Dr Carmelo Jerez (Electronically Signed) Final Date: 05 March 2023 18:00
--- NOTE | 2023-03-05 21:55 | P.PN ---
Subjective Progress Note Date: 03/05/23 Subjective: Patient is doing well today. He reports that he is feeling much energetic since stopping his metoprolol. He was able to walk in the unit with engine monitor on and his heart rate has been reaching the 70s to 80s beats a minute. I have checked his trends on telemetry and he has not shown any episodes of pauses. His EKG has not shown any blocks. PHYSICAL EXAMINATION Vital signs reviewed. Head: Normocephalic. Eyes: Sclerae nonicteric. Neck: Brisk carotid upstroke, no jugular venous distention. Lungs: Mild crackles audible Heart: Regular rate and rhythm, S1-S2, no S3, mild systolic murmur audible in aortic area Abdomen: Soft nontender, positive bowel sounds no organomegaly. Extremities: No edema, intact distal pulses. ASSESSMENT Sinus bradycardia, No evidence of blocks. Unsure if patient mistakenly took more than required bet a shayy. He was metoprolol succinate 25 mg daily Exertional dyspnea and shortness of breath, NYHA class III Mild HFpEF exacerbation, now resolved Essential hypertension PLAN Symptoms of generalized weakness and shortness of breath, likely from sinus bradycardia. No evidence of blocks of high-grade pauses Hold his metoprolol. Do not resume it on discharge Continue aspirin and Plavix and atorvastatin Increase lisinopril to 20 mg daily for better blood pressure control. Patient is on Lasix every other day. I be continued without any changes as per Dr. Michel's recommendation synopsis This is a pleasant 87-year-old with past medical history significant for CAD status post PCI to RCA in 2012, mid LAD 2018, most recent cath May 2022, PCI to mid LAD. Also history of hypertension, dyslipidemia, prior nicotine dependence. He follows in the office with Dr. Peñaloza/ifrah. At home is on lisinopril 10 mg, aspirin, Plavix, atorvastatin, metoprolol succinate 25 mg daily. At-home patient has been feeling weak and short of breath over last few days. His baseline shortness of breath is somewhat near NYHA class II but lately he was getting short of breath with minimal activity like walking 100m. for this he went to his PCP today who found him to be bradycardic and referred him to the emergency room. On my evaluation today his blood pressure is 170/66, heart rate 40-45 bpm, sinus rhythm. On today's review of telemetry and ECG he does not demonstrate any blocks or pauses so far He reports that he did not make sense medications and has been taking them appropriately. He does not remember the name of his beta shayy and reports that it was started after the recent PCI in 2021. It is unsure if patient mistakenly took more than required beta shayy at home. He denies having any chest pain chest pressure palpitations lightheadedness or dizziness. He did not have any syncopal episodes. He does report having shortness of breath getting short of breath going to the bathroom or walking to his mailbox. Labs shows hemoglobin 14, creatinine 0.9, BUN 23, INR 1, troponin is negative at 0.13 PRIOR CARDIAC TESTING Last echo from May 2022 shows EF of 50-55%, moderate aortic stenosis and moderate mitral regurgitation REVIEW OF SYSTEMS 14 point review of system is negative except what is mentioned above in HPI. Objective - Vital Signs Vital signs: Vital Signs Temp 97.6 F 03/05/23 15:30 Pulse 54 L 03/05/23 15:30 Resp 18 03/05/23 15:30 BP 170/64 03/05/23 15:30 Pulse Ox 96 03/05/23 15:30 FiO2 Intake & Output 03/05/23 03/05/23 03/06/23 06:59 18:59 06:59 Intake Total 200 498 Output Total 300 Balance -100 498 Weight 74.9 kg Intake: Intake, IV Titration 200 Amount Sodium Chloride 0.9% 1, 200 000 ml @ 20 mls/hr IV . Q24H [facility] Rx#:[id number] Oral 200 298 Output: Urine 300 Other: Voiding Method Toilet Toilet # Voids 2 - Labs CBC & Chem 7: 03/04/23 11:33 03/04/23 11:33
[2023-03-05] MEDS: FINASTERIDE 5 MG TAB PO SCH (22:07)
[2023-03-05] MEDS: ASPIRIN 81 MG PO SCH (22:08)
[2023-03-06] MEDS: SYMBICORT 160-4.5 MCG INHALER INHALATION SCH (08:28)
[2023-03-06] MEDS: TIOTROPIUM 2.5 MCG INHALER INHALATION SCH (08:28)
[2023-03-06] MEDS ORDERED: ENOXAPARIN 40 MG/0.4 ML SYRINGE SQ SCH (09:00)
[2023-03-06] MEDS ORDERED: lisinopriL 20 MG TAB PO SCH (09:00)
[2023-03-06] MEDS: ISOSORBIDE MONONITRATE 20 MG TAB PO SCH (09:27)
[2023-03-06] MEDS: TAMSULOSIN 0.4 MG CAP.ER.24H PO SCH (09:27)
[2023-03-06] MEDS: CLOPIDOGREL 75 MG TAB PO SCH (09:27)
[2023-03-06] MEDS: ESCITALOPRAM 5 MG TAB PO SCH (09:27)
[2023-03-06] MEDS: ATORVASTATIN 80 MG TAB PO SCH (09:27)
--- NOTE | 2023-03-06 13:18 | P.PN ---
Subjective Patient returns 88-year-old male with history of coronary artery disease and recent the cardiac catheterization and stent to LAD in May 2022 and on beta shayy came in with complaints of generalized tiredness and weakness found to be in sinus bradycardia patient is admitted for symptomatic sinus bradycardia metoprolol is being held at this time patient was monitored overnight and will be evaluated for chronotropic competency tomorrow. Cardiology evaluated the patient patient denied any symptoms at this time patient tiredness and weakness improved there is no TSH available at this time. 03/06/2023 Patient regarding resolved. Patient blood pressure was high because of which are lisinopril dose was increased patient will be discharged today to follow with the PCP as an outpatient. PHYSICAL EXAMINATION: GENERAL: The patient is alert and oriented x3, not in any acute distress. Well developed, well nourished. HEENT: Pupils are round and equally reacting to light. EOMI. No scleral icterus. No conjunctival pallor. Normocephalic, atraumatic. No pharyngeal erythema. No thyromegaly. CARDIOVASCULAR: S1 and S2 present. No murmurs, rubs, or gallops. PULMONARY: Chest is clear to auscultation, no wheezing or crackles. ABDOMEN: Soft, nontender, nondistended, normoactive bowel sounds. No palpable organomegaly. MUSCULOSKELETAL: No joint swelling or deformity. EXTREMITIES: No cyanosis, clubbing, or pedal edema. NEUROLOGICAL: Gross neurological examination did not reveal any focal deficits. SKIN: No rashes. Assessment and plan -Sinus bradycardia: Secondary to metoprolol which was discontinued Cardiology evaluated the patient. TSH within normal limits cleared by cardiology patient will be discharged today -Coronary artery disease: Patient will be resumed on home medications except for beta shayy -Congestive heart failure with preserved ejection fraction about any acute exacerbation -Hypertension: Blood pressure is uncontrolled , increase the dose of lisinopril COPD without any acute exacerbation Objective - Vital Signs Vital signs: Vital Signs Temp 97.8 F 03/06/23 08:00 Pulse 65 03/06/23 08:00 Resp 16 03/06/23 08:00 BP 176/56 03/06/23 08:00 Pulse Ox 94 L 03/06/23 08:00 FiO2 Intake & Output 03/05/23 03/06/23 03/06/23 18:59 06:59 18:59 Intake Total 498 660 640 Balance 498 660 640 Intake: Intake, IV Titration 200 120 40 Amount Sodium Chloride 0.9% 1, 200 120 40 000 ml @ 20 mls/hr IV . Q24H [facility] Rx#:[id number] Oral 298 540 600 Other: Voiding Method Toilet Toilet Toilet # Voids 2 1 1 - Labs CBC & Chem 7: 03/04/23 11:33 03/04/23 11:33
[2023-03-06 14:16] VITALS: BP 176/74; PULSE 60; RESP 18; TEMP 97.7
== END 2023-03-06 14:56 | disposition home or self-care (01) | DRG 308 ==
LOC: EC 10:58 → 3SCARD 12:24
PROVIDERS: ADMIT Internal Medicine; ATTEND Internal Medicine
DX: R00.1 Bradycardia, unspecified (principal); I50.33 Acute on chronic diastolic (congestive) heart failure; E78.5 Hyperlipidemia, unspecified; I08.0 Rheumatic disorders of both mitral and aortic valves; I11.0 Hypertensive heart disease with heart failure; I25.10 Atherosclerotic heart disease of native coronary artery without angina pectoris; T44.7X5A Adverse effect of beta-adrenoreceptor antagonists, initial encounter; J44.9 Chronic obstructive pulmonary disease, unspecified; I25.2 Old myocardial infarction; Z79.02 Long term (current) use of antithrombotics/antiplatelets; Z79.899 Other long term (current) drug therapy; Z82.49 Family history of ischemic heart disease and other diseases of the circulatory system; Z83.3 Family history of diabetes mellitus; Z95.5 Presence of coronary angioplasty implant and graft; Z88.8 Allergy status to other drugs, medicaments and biological substances; Z87.891 Personal history of nicotine dependence
CPT/HCPCS: 36415; 71046; 80053; 83735; 84443; 84484; 85025; 85610; 85730; 93005; 93306; 94640; 99291

== ENCOUNTER 2023-05-09 10:00 | Emergency (ER) | payer MEDICARE ==
[2023-05-09 10:30] LABS: Basophils % (A) 0 %; Eosinophils # (A) 0.3 k/uL (0-0.7); Eosinophils % (A) 3 %; HCT 47.7 % (39.0-53.0); HGB 16.1 gm/dL (13.0-17.5); Lymphocytes # (A) 2.7 k/uL (1.0-4.8); Lymphocytes % (A) 28 %; MCH 32.7 pg (25.0-35.0); MCHC 33.8 g/dL (31.0-37.0); MCV 96.6 fL (80.0-100.0); Mean Platelet Volume 7.1; Monocytes # (A) 0.4 k/uL (0-1.0); Monocytes % (A) 4 %; Neutrophils # (A) 6.1 k/uL (1.3-7.7); Neutrophils % (A) 63 %; Platelet Count 243 k/uL (150-450); RBC 4.94 m/uL (4.30-5.90); RDW 13.3 % (11.5-15.5); WBC 9.7 k/uL (3.8-10.6)
[2023-05-09 10:41] LABS: INR 0.9 (<1.2); Partial Thromboplastin Time 23.1 sec (22.0-30.0); Prothrombin Time 10.4 sec (10.0-12.5)
[2023-05-09 10:46] LABS: ALT 31 U/L (4-49); African American GFR (CKD) >90 (>60 ml/min/1.73 sqM); Albumin 4.3 g/dL (3.5-5.0); Anion Gap 10 mmol/L; Blood Urea Nitrogen 21 mg/dL (9-20); Calcium 9.9 mg/dL (8.4-10.2); Carbon Dioxide 20 mmol/L (22-30); Chloride 110 mmol/L (98-107); Glucose 110 mg/dL (74-99); Non-African American GFR(CKD) 79 (>60 ml/min/1.73 sqM); Sodium 140 mmol/L (137-145); Total Bilirubin 1.3 mg/dL (0.2-1.3)
[2023-05-09 10:48] LABS: AST 35 U/L (17-59); Alkaline Phosphatase 79 U/L (38-126); Potassium 4.4 mmol/L (3.5-5.1)
--- NOTE | 2023-05-09 11:34 | XR ---
EXAMINATION TYPE: XR chest 2V DATE OF EXAM: 05/09/2023 10:40 AM CLINICAL INDICATION:Male, 88 years old with history of difficulty breathing; COMPARISON: Chest radiographs from 03/04/2023 TECHNIQUE: XR chest 2V Frontal and lateral views of the chest. FINDINGS: Lungs/Pleura: There is flattening of the diaphragm with increased lucency of the lungs. No evidence o f pneumothorax, pleural effusion or focal consolidation. Pulmonary vascularity: Unremarkable. Heart/mediastinum: Cardiomediastinal silhouette is unremarkable. Musculoskeletal: No acute osseous pathology. There is lower and upper spine fixation hardware present . Hardware appears intact. Other findings: None IMPRESSION: 1. No acute cardiopulmonary disease process. 2. COPD changes.
--- NOTE | 2023-05-09 11:36 | ED ---
SOB HPI - General Chief Complaint: Shortness of Breath Stated Complaint: SOB Time Seen by Provider: 05/09/23 11:20 Source: patient Mode of arrival: ambulatory Limitations: no limitations - History of Present Illness Initial Comments: Patient is a 88-year-old gentleman who has a history of hypertension, hyperlipidemia, CHF who presents emergency room accompanied by his via EMS for abrupt onset of shortness of breath. The patient states he woke up with shortness breath and felt as though he cannot get his full breath of air in. He felt very anxious and jittery at this time. Patient states that he felt pressure in his chest because he couldn't get his full breath in. He states he is feeling better at this time and feels back to normal. Per he has been in multiple times for similar episodes and is very anxious. He is not currently taking any anxiety medication but patient does agree very anxious and nervous at the time of shortness of breath. Patient denies any recent cough congestion or fever. He denies any worsening swelling to lower extremity. the patient denies any pain in his lower extremities or hemoptysis. he denies any recent travel or recent surgery. 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 - Related Data Home Medications Medication Instructions Recorded Confirmed Isosorbide Mononitrate [Ismo] 20 mg PO BID 03/25/14 03/04/23 Atorvastatin Calcium [Lipitor] 80 mg PO DAILY 08/12/18 03/04/23 Finasteride [Proscar] 5 mg PO DAILY 08/12/18 03/04/23 Tamsulosin [Flomax] 0.4 mg PO DAILY 12/07/19 03/04/23 Aspirin EC [Ecotrin Low Dose] 81 mg PO HS 06/12/21 03/04/23 Furosemide [Lasix] 20 mg PO MOWEFR 02/20/22 03/04/23 Potassium Chloride [Klor-Con M20] 20 meq PO MOWEFR 02/20/22 03/04/23 Albuterol Sulfate [Albuterol 2 puff PO Q6H PRN 05/31/22 03/04/23 Sulfate Hfa] Budesonide/Glycopyr/Formoterol 2 puff INHALATION RT-BID 05/31/22 03/04/23 [Breztri Aerosphere Inhaler] Previous Rx's Medication Instructions Recorded Clopidogrel [Plavix] 75 mg PO DAILY #90 tab 06/02/22 lisinopriL [Zestril] 20 mg PO DAILY #30 tab 03/06/23 Allergies Allergy/AdvReac Type Severity Reaction Status Date / Time adhesive tape Allergy pulls skin Verified 05/09/23 10:05 off adhesive dressings Allergy pulls skin Uncoded 05/09/23 10:05 off Review of Systems ROS Statement: Those systems with pertinent positive or pertinent negative responses have been documented in the HPI. ROS Other: All systems not noted in ROS Statement are negative. 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, METAL IN BACK, STENT IN HEART X2, NROTH CATARACTS, Past Anesthesia/Blood Transfusion Reactions: No Reported Reaction Additional Past Anesthesia/Blood Transfusion Reaction / Comment(s): denies PONV Date of Last Stent Placement:: 2012 Past Psychological History: No Psychological Hx Reported Smoking Status: Former smoker Past Alcohol Use History: None Reported Past Drug Use History: None Reported - Past Family History Father History Unknown: Yes Family Medical History: Myocardial Infarction ([place]) Additional Family Medical History / Comment(s): Several mi's, but from complications of pedestrain/mva-head injury. Mother History Unknown: Yes Family Medical History: CVA/TIA Daughter(s) History Unknown: Yes Family Medical History: Diabetes Mellitus General Exam Limitations: no limitations General appearance: alert, in no apparent distress Head exam: Present: atraumatic Eye exam: Present: normal appearance ENT exam: Present: normal exam Neck exam: Present: normal inspection, full ROM Respiratory exam: Present: normal lung sounds bilaterally, other (No respiratory distress. No wheezing, rales or rhonchi. No labored breathing.) Cardiovascular Exam: Present: regular rate, normal rhythm Extremities exam: Present: full ROM Neurological exam: Present: alert, oriented X3, CN II-XII intact Psychiatric exam: Present: normal affect, normal mood Skin exam: Present: warm, dry Course Vital Signs 05/09/23 10:01 Temperature 97.3 F L Pulse Rate 54 L Respiratory 20 Rate Blood Pressure 155/65 O2 Sat by Pulse 100 Oximetry - Reevaluation(s) Reevaluation #1: 05/09/23 13:34 The patient is well-appearing in the emergency room. He is in no respiratory distress. The patient is feeling better throughout his emergency room stay. He was able to ambulate without any shortness of breath or labored breathing. He feels comfortable going home at this time. I suspect that he might have had an anxiety attack however given his history of CHF I recommend following up with the PCP. I discussed patient'slabs and imaging with patient and his . The impacted within normal limits. No pneumonia, pneumothorax or pulmonary edema chest x-ray. Medical Decision Making - Medical Decision Making Was pt. sent in by a medical professional or institution (, PA, SMOKING PIPE LINER, urgent care, hospital, or skilled nursing...) When possible be specific @ -[No] Did you speak to anyone other than the patient for history (EMS, parent, family, police, friend...)? What history was obtained from this source @ -Yes with the bedside Did you review nursing and triage notes (agree or disagree)? Why? @ -[I reviewed and agree with nursing and triage notes] Were old charts reviewed (outside hosp., previous admission, EMS record, old EKG, old radiological studies, urgent care reports/EKG's, skilled nursing records)? Report findings @ -Yes old charts were reviewed. Previous lab and imaging results were reviewed today. Differential Diagnosis (chest pain, altered mental status, abdominal pain women, abdominal pain men, vaginal bleeding, weakness, fever, dyspnea, syncope, headache, dizziness, GI bleed, back pain, seizure, CVA, palpatations, mental health, musculoskeletal)? @ -URI, CHF exacerbation, anxiety, panic attack, [place] EKG interpreted by me (3pts min.). @ -EKG shows supraventricular bradycardia rate of 57 bpm, nonspecific ST changes, borderline prolonged QT interval X-rays interpreted by me (1pt min.). @ -No obvious pneumothorax, pneumonia, pulmonary congestion seen on chest x- ray. Radiology report pending for confirmation of acute changes. CT interpreted by me (1pt min.). @ -[None done] U/S interpreted by me (1pt. min.). @ -[None done] What testing was considered but not performed or refused? (CT, X-rays, U/S, labs)? Why? @ -[None] What meds were considered but not given or refused? Why? @ -[None] Did you discuss the management of the patient with other professionals (professionals i.e. DrEmiliano, PA, SMOKING PIPE [employer]ER, lab, RT, psych nurse, manager social media, mine equipment design engineer, teacher, chief data officer, case mgr)? Give summary @ -I discussed patient's symptoms are And disposition with attending ED ph ysician today. Was smoking cessation discussed for >3mins.? @ -[No] Was critical care preformed (if so, how long)? @ -[No] Were there social determinants of health that impacted care today? How? (Homelessness, low income, unemployed, alcoholism, drug addiction, transportation, low edu. Level, literacy, decrease access to med. care, assisted, rehab)? @ -[No] Was there de-escalation of care discussed even if they declined (Discuss DNR or withdrawal of care, Hospice)? DNR status @ -[No] What co-morbidities impacted this encounter? (DM, HTN, Smoking, COPD, CAD, Cancer, CVA, ARF, Chemo, Hep., AIDS, mental health diagnosis, sleep apnea, morbid obesity)? @ -Past smoker, COPD, CHF, hypertension, hyperlipidemia Was patient admitted / discharged? Hospital course, mention meds given and route, prescriptions, significant lab abnormalities, going to OR and other pertinent info. @ -Patient is well-appearing emergency room. He is in no respiratory distress. His vital signs are stable. Patient has had no dyspnea on the emergency room is feeling better. His lab and imaging results show no acute changes. Patient is able to ambulate without any shortness of breath and is stable at his baseline. He is able to follow-up with his PCP for follow-up evaluation further medical management. Undiagnosed new problem with uncertain prognosis? @ -[No] Drug Therapy requiring intensive monitoring for toxicity (Heparin, Nitro, Insulin, Cardizem)? @ -[No] Were any procedures done? @ -[No] Diagnosis/symptom? @ -Shortness of breath, suspected anxiety reaction Acute, or Chronic, or Acute on Chronic? @ -Acute Uncomplicated (without systemic symptoms) or Complicated (systemic symptoms)? @ -Uncomplicated Side effects of treatment? @ -[No] Exacerbation, Progression, or Severe Exacerbation? @ -[No] Poses a threat to life or bodily function? How? (Chest pain, [place], [place], pneumonia, PE, COPD, DKA, ARF, appy, cholecystitis, CVA, Diverticulitis, Homicidal, Suicidal, threat to staff... and all critical care pts) @ -[No] - Lab Data Result diagrams: 05/09/23 10:08 05/09/23 10:08 Lab Results 05/09/23 05/09/23 05/09/23 Range/Units 10:08 10:08 10:08 WBC 9.7 (3.8-10.6) k/uL RBC 4.94 (4.30-5.90) m/uL Hgb 16.1 (13.0-17.5) gm/dL Hct 47.7 (39.0-53.0) % MCV 96.6 (80.0-100.0) fL MCH 32.7 (25.0-35.0) pg MCHC 33.8 (31.0-37.0) g/dL RDW 13.3 (11.5-15.5) % Plt Count 243 (150-450) k/uL MPV 7.1 Neutrophils % 63 % Lymphocytes % 28 % Monocytes % 4 % Eosinophils % 3 % Basophils % 0 % Neutrophils # 6.1 (1.3-7.7) k/uL Lymphocytes # 2.7 (1.0-4.8) k/uL Monocytes # 0.4 (0-1.0) k/uL Eosinophils # 0.3 (0-0.7) k/uL Basophils # 0.0 (0-0.2) k/uL PT 10.4 (10.0-12.5) sec INR 0.9 (<1.2) APTT 23.1 (22.0-30.0) sec Sodium 140 (137-145) mmol/L Potassium 4.4 (3.5-5.1) mmol/L Chloride 110 H (98-107) mmol/L Carbon Dioxide 20 L (22-30) mmol/L Anion Gap 10 mmol/L BUN 21 H (9-20) mg/dL Creatinine 0.85 (0.66-1.25) mg/dL Est GFR (CKD-EPI)AfAm >90 (>60 ml/min/1.73 sqM) Est GFR (CKD-EPI)NonAf 79 (>60 ml/min/1.73 sqM) Glucose 110 H (74-99) mg/dL Calcium 9.9 (8.4-10.2) mg/dL Total Bilirubin 1.3 (0.2-1.3) mg/dL AST 35 (17-59) U/L ALT 31 (4-49) U/L Alkaline Phosphatase 79 (38-126) U/L Troponin I (0.000-0.034) ng/mL NT-Pro-B Natriuret Pep pg/mL Total Protein 7.0 (6.3-8.2) g/dL Albumin 4.3 (3.5-5.0) g/dL 05/09/23 05/09/23 Range/Units 10:08 11:48 WBC (3.8-10.6) k/uL RBC (4.30-5.90) m/uL Hgb (13.0-17.5) gm/dL Hct (39.0-53.0) % MCV (80.0-100.0) fL MCH (25.0-35.0) pg MCHC (31.0-37.0) g/dL RDW (11.5-15.5) % Plt Count (150-450) k/uL MPV Neutrophils % % Lymphocytes % % Monocytes % % Eosinophils % % Basophils % % Neutrophils # (1.3-7.7) k/uL Lymphocytes # (1.0-4.8) k/uL Monocytes # (0-1.0) k/uL Eosinophils # (0-0.7) k/uL Basophils # (0-0.2) k/uL PT (10.0-12.5) sec INR (<1.2) APTT (22.0-30.0) sec Sodium (137-145) mmol/L Potassium (3.5-5.1) mmol/L Chloride (98-107) mmol/L Carbon Dioxide (22-30) mmol/L Anion Gap mmol/L BUN (9-20) mg/dL Creatinine (0.66-1.25) mg/dL Est GFR (CKD-EPI)AfAm (>60 ml/min/1.73 sqM) Est GFR (CKD-EPI)NonAf (>60 ml/min/1.73 sqM) Glucose (74-99) mg/dL Calcium (8.4-10.2) mg/dL Total Bilirubin (0.2-1.3) mg/dL AST (17-59) U/L ALT (4-49) U/L Alkaline Phosphatase (38-126) U/L Troponin I 0.024 (0.000-0.034) ng/mL NT-Pro-B Natriuret Pep 855 pg/mL Total Protein (6.3-8.2) g/dL Albumin (3.5-5.0) g/dL Disposition Clinical Impression: Shortness of breath, Anxiety Disposition: HOME SELF-CARE Condition: Good Instructions (If sedation given, give patient instructions): Dyspnea (ED), Shortness of Breath (ED), Anxiety (ED) Is patient prescribed a controlled substance at d/c from ED?: No Referrals: Nayeli Michel MD [Primary Care Provider] - 1-2 days Time of Disposition: 13:39
[2023-05-09 14:01] VITALS: BP 164/66; PULSE 62; RESP 16; TEMP 97.9
== END 2023-05-09 13:54 | disposition home or self-care (01) ==
LOC: EC 10:00
DX: R00.1 Bradycardia, unspecified (principal); R06.02 Shortness of breath; F41.9 Anxiety disorder, unspecified; J44.9 Chronic obstructive pulmonary disease, unspecified; E78.5 Hyperlipidemia, unspecified; I10 Essential (primary) hypertension; I25.2 Old myocardial infarction; Z87.891 Personal history of nicotine dependence; Z91.09 Other allergy status, other than to drugs and biological substances; Z79.82 Long term (current) use of aspirin; Z79.899 Other long term (current) drug therapy
CPT/HCPCS: 36415; 71046; 80053; 83880; 84484; 85025; 85610; 85730; 93005; 99285

== ENCOUNTER 2023-06-11 16:48 | Inpatient (IN) | payer MEDICARE ==
--- NOTE | 2023-06-11 17:16 | ED ---
General Adult HPI - General Source: patient, RN notes reviewed Mode of arrival: wheelchair Limitations: no limitations <Molly Gupta - Last Filed: 06/11/23 17:16> <Pradip Matos - Last Filed: 06/12/23 04:27> - General Chief complaint: Upper Respiratory Infection Stated complaint: Covid Symptoms Time Seen by Provider: 06/11/23 17:15 - History of Present Illness Initial comments: 88-year-old male presents to the emergency department for chief complaint of generalized weakness for respiratory symptoms. Symptoms started today. He states that he got out of bed and was feeling weak which caused him to fall. He states that he hit his elbow but did not have any other injuries. He did not hit his head. Patient states that his currently has Covid and is concerned that he may have it now. (Molly Gupta) 88-year-old male presenting with chief complaint of generalized weakness. Patient lives with his who currently has Covid 19. Patient has been experiencing cough and congestion. Today when he went to get up out of bed he was unable to pick himself up and slipped falling onto his bottom. He denies any head injury or loss of consciousness. Patient did hit his left elbow and sustained a minor skin tear, however he is having no elbow pain and has full range of motion. No chest pain, difficulty breathing, abdominal pain, nausea, vomiting, diarrhea, numbness, tingling. (Pradip Matos) - Related Data Home Medications Medication Instructions Recorded Confirmed Isosorbide Mononitrate [Ismo] 20 mg PO BID 03/25/14 06/11/23 Atorvastatin Calcium [Lipitor] 80 mg PO DAILY 08/12/18 06/11/23 Finasteride [Proscar] 5 mg PO DAILY 08/12/18 06/11/23 Tamsulosin [Flomax] 0.4 mg PO DAILY 12/07/19 06/11/23 Aspirin EC [Ecotrin Low Dose] 81 mg PO DAILY 06/12/21 06/11/23 Propranolol [Inderal] 10 mg PO DAILY 06/11/23 06/11/23 lisinopriL [Zestril] 10 mg PO DAILY 06/11/23 06/11/23 Previous Rx's Medication Instructions Recorded Clopidogrel [Plavix] 75 mg PO DAILY #90 tab 06/02/22 Allergies Allergy/AdvReac Type Severity Reaction Status Date / Time adhesive tape Allergy pulls skin Verified 06/11/23 20:25 off adhesive dressings Allergy pulls skin Uncoded 06/11/23 20:25 off Review of Systems ROS Other: All systems not noted in ROS Statement are negative. <Molly Gupta - Last Filed: 06/11/23 17:16> ROS Other: All systems not noted in ROS Statement are negative. <Pradip Matos - Last Filed: 06/12/23 04:27> ROS Statement: Those systems with pertinent positive or pertinent negative responses have been documented in the HPI. Past Medical History Past Medical History: Hyperlipidemia, Hypertension, Myocardial Infarction ([place]), Osteoarthritis (OA), Pneumonia Additional Past Medical History / Comment(s): has some balance issue, uses cane when outside home, sinus problems, Last Myocardial Infarction Date:: 1993 History of Any Multi-Drug Resistant Organisms: None Reported Past Surgical History: Back Surgery, Heart Catheterization, Tonsillectomy Additional Past Surgical History / Comment(s): 2 Neck surgery, STATES HAS "PLAS TIC" IN NECK, METAL IN BACK, STENT IN HEART X2, NORTH CATARACTS, Past Anesthesia/Blood Transfusion Reactions: No Reported Reaction Additional Past Anesthesia/Blood Transfusion Reaction / Comment(s): denies PONV Date of Last Stent Placement:: 2012 Past Psychological History: No Psychological Hx Reported Smoking Status: Former smoker Past Alcohol Use History: None Reported Past Drug Use History: None Reported - Past Family History Father History Unknown: Yes Family Medical History: Myocardial Infarction ([place]) Additional Family Medical History / Comment(s): Several mi's, but from complications of pedestrain/mva-head injury. Mother History Unknown: Yes Family Medical History: CVA/TIA Daughter(s) History Unknown: Yes Family Medical History: Diabetes Mellitus <Molly Gupta - Last Filed: 06/11/23 17:16> General Exam Limitations: no limitations <Molly Gupta - Last Filed: 06/11/23 17:16> Limitations: no limitations General appearance: alert, in no apparent distress Head exam: Present: atraumatic, normocephalic, normal inspection Eye exam: Present: normal appearance, EOMI Neck exam: Present: normal inspection, full ROM Respiratory exam: Present: normal lung sounds bilaterally. Absent: respiratory distress, wheezes, rales, rhonchi, stridor Cardiovascular Exam: Present: regular rate, normal rhythm, normal heart sounds. Absent: systolic murmur, diastolic murmur, rubs, gallop, clicks Neurological exam: Present: alert, oriented X3 Skin exam: Present: warm, dry <Pradip Mtaos - Last Filed: 06/12/23 04:27> - General Exam Comments Initial Comments: Visual Physical Exam Vital signs reviewed General: Well-appearing, nontoxic, no acute distress. Head: Normocephalic, atraumatic Eyes: PERRLA, EOMI ENT: Airway patent Chest: Nonlabored breathing Skin: No visual rash, normal skin tone Neuro: Alert and oriented 3 Musculoskeletal: No gross abnormalities (Molly Gupta) Course Vital Signs 06/11/23 06/11/23 06/11/23 17:06 18:11 19:32 Temperature 98.7 F Pulse Rate 72 60 62 Respiratory 18 18 18 Rate Blood Pressure 135/61 130/97 150/58 O2 Sat by Pulse 95 96 97 Oximetry 06/11/23 06/12/23 23:00 00:00 Temperature Pulse Rate 75 Respiratory 18 Rate Blood Pressure 161/71 O2 Sat by Pulse 91 L 97 Oximetry EKG Findings - EKG Comments: EKG Findings:: Sinus rhythm with occasional ventricular premature complexes. Ventricular rate 61. SC interval 205. QRS 109. QTC 434. QTC 438. There appears to be new T-wave inversion in leads V5 and V6 <Pradip Matos - Last Filed: 06/12/23 04:27> Medical Decision Making <Molly Gupta - Last Filed: 06/11/23 17:16> - Lab Data Result diagrams: 06/12/23 01:58 06/11/23 17:26 <Pradip Matos - Last Filed: 06/12/23 04:27> - Medical Decision Making Quick note preformed by Molly Gupta PA-C (Molly Gupta) Was pt. sent in by a medical professional or institution (DEBORAH Desai, RECREATION SUPERVISOR, urgent care, hospital, or [facility]...) When possible be specific @ -No Did you speak to anyone other than the patient for history (EMS, parent, family, police, friend...)? What history was obtained from this source @ -Spoke with family at bedside Did you review nursing and triage notes (agree or disagree)? Why? @ -I reviewed and agree with nursing and triage notes Were old charts reviewed (outside hosp., previous admission, EMS record, old EKG, old radiological studies, urgent care reports/EKG's, [facility] records)? Report findings @ -No old charts were reviewed Differential Diagnosis (chest pain, altered mental status, abdominal pain women, abdominal pain men, vaginal bleeding, weakness, fever, dyspnea, syncope, headache, dizziness, GI bleed, back pain, seizure, CVA, palpatations, mental health, musculoskeletal)? @ -MDM Differential Weakness: Hypoglycemia, shock, sepsis, hyponatremia, anemia, infection, [place], ETOH, adverse medicine reaction, overdose, stroke. ... This is not meant to be an all- inclusive list EKG interpreted by me (3pts min.). @ -As above X-rays interpreted by me (1pt min.). @ -Changes of COPD/emphysema suggests is without evidence of acute superimposed airspace disease CT interpreted by me (1pt min.). @ -None done U/S interpreted by me (1pt. min.). @ -None done What testing was considered but not performed or refused? (CT, X-rays, U/S, labs)? Why? @ -None What meds were considered but not given or refused? Why? @ -None Did you discuss the management of the patient with other professionals (professionals i.e. DrEmiliano, PA, RECREATION SUPERVISOR, lab, RT, psych nurse, sr. social media & mobile manager, road test examiner, teacher, training and development officer, patient case manager)? Give summary @ -Spoke with Dr. Michel who accepted admission. I discussed the EKG changes and troponin with Dr. Michel, he would like heparin initiated Was smoking cessation discussed for >3mins.? @ -No Was critical care preformed (if so, how long)? @ -No Were there social determinants of health that impacted care today? How? (Homelessness, low income, unemployed, alcoholism, drug addiction, transportation, low edu. Level, literacy, decrease access to med. care, long term, rehab)? @ -No Was there de-escalation of care discussed even if they declined (Discuss DNR or withdrawal of care, Hospice)? DNR status @ -No What co-morbidities impacted this encounter? (DM, HTN, Smoking, COPD, CAD, Cancer, CVA, ARF, Chemo, Hep., AIDS, mental health diagnosis, sleep apnea, morbid obesity)? @ -None Was patient admitted / discharged? Hospital course, mention meds given and route, prescriptions, significant lab abnormalities, going to OR and other pertinent info. @ -88-year-old male presenting with chief complaint of generalized weakness and fall today. Patient is concerned that he has COVID-19 as his currently has it. No head injury or loss of consciousness. History and physical exam were conducted. Patient is positive for Covid. EKG shows new T-wave inversions in leads V5 and V6. Chest x-ray shows no acute process. Troponin is 0.099. Patient is having no chest pain. Patient is unable to ambulate on his own and will be admitted for generalized weakness and Covid. I discussed this patient with Dr. Michel. I informed him of the EKG changes and troponin in the setting of Covid, he would like heparin initiated and cardiology consulted. I discussed this case with my attending Dr. Figueroa Undiagnosed new problem with uncertain prognosis? @ -No Drug Therapy requiring intensive monitoring for toxicity (Heparin, Nitro, Insulin, Cardizem)? @ -No Were any procedures done? @ -No Diagnosis/symptom? @ -COVID-19, generalized weakness, elevated troponin Acute, or Chronic, or Acute on Chronic? @ -Acute Uncomplicated (without systemic symptoms) or Complicated (systemic symptoms)? @ -complicated Side effects of treatment? @ -No Exacerbation, Progression, or Severe Exacerbation? @ -No Poses a threat to life or bodily function? How? (Chest pain, [place], NV, pneumonia, PE, COPD, DKA, ARF, appy, cholecystitis, CVA, Diverticulitis, Homicidal, Suicidal, threat to staff... and all critical care pts) @ -yes (Pradip Matos) - Lab Data Lab Results 06/11/23 06/11/23 06/11/23 Range/Units 17:26 17:26 17:26 WBC 10.3 (3.8-10.6) k/uL RBC 4.55 (4.30-5.90) m/uL Hgb 14.8 (13.0-17.5) gm/dL Hct 43.4 (39.0-53.0) % MCV 95.4 (80.0-100.0) fL MCH 32.5 (25.0-35.0) pg MCHC 34.0 (31.0-37.0) g/dL RDW 13.2 (11.5-15.5) % Plt Count 184 (150-450) k/uL MPV 7.8 Neutrophils % 74 % Lymphocytes % 17 % Monocytes % 6 % Eosinophils % 1 % Basophils % 0 % Neutrophils # 7.6 (1.3-7.7) k/uL Lymphocytes # 1.8 (1.0-4.8) k/uL Monocytes # 0.6 (0-1.0) k/uL Eosinophils # 0.1 (0-0.7) k/uL Basophils # 0.0 (0-0.2) k/uL PT 10.9 (10.0-12.5) sec INR 1.0 (<1.2) APTT 24.7 (22.0-30.0) sec Sodium (137-145) mmol/L Potassium (3.5-5.1) mmol/L Chloride (98-107) mmol/L Carbon Dioxide (22-30) mmol/L Anion Gap mmol/L BUN (9-20) mg/dL Creatinine (0.66-1.25) mg/dL Est GFR (CKD-EPI)AfAm (>60 ml/min/1.73 sqM) Est GFR (CKD-EPI)NonAf (>60 ml/min/1.73 sqM) Glucose (74-99) mg/dL Plasma Lactic Acid Bryn (0.7-2.0) mmol/L Calcium (8.4-10.2) mg/dL Total Bilirubin (0.2-1.3) mg/dL AST (17-59) U/L ALT (4-49) U/L Alkaline Phosphatase (38-126) U/L Troponin I (0.000-0.034) ng/mL Total Protein (6.3-8.2) g/dL Albumin (3.5-5.0) g/dL Influenza Type A (PCR) Not Detected (Not Detectd) Influenza Type B (PCR) Not Detected (Not Detectd) RSV (PCR) Not Detected (Not Detectd) SARS-CoV-2 (PCR) Detected A (Not Detectd) 06/11/23 06/11/23 06/11/23 Range/Units 17:26 17:26 19:07 WBC (3.8-10.6) k/uL RBC (4.30-5.90) m/uL Hgb (13.0-17.5) gm/dL Hct (39.0-53.0) % MCV (80.0-100.0) fL MCH (25.0-35.0) pg MCHC (31.0-37.0) g/dL RDW (11.5-15.5) % Plt Count (150-450) k/uL MPV Neutrophils % % Lymphocytes % % Monocytes % % Eosinophils % % Basophils % % Neutrophils # (1.3-7.7) k/uL Lymphocytes # (1.0-4.8) k/uL Monocytes # (0-1.0) k/uL Eosinophils # (0-0.7) k/uL Basophils # (0-0.2) k/uL PT (10.0-12.5) sec INR (<1.2) APTT (22.0-30.0) sec Sodium 137 (137-145) mmol/L Potassium 4.0 (3.5-5.1) mmol/L Chloride 108 H (98-107) mmol/L Carbon Dioxide 18 L (22-30) mmol/L Anion Gap 11 mmol/L BUN 20 (9-20) mg/dL Creatinine 0.83 (0.66-1.25) mg/dL Est GFR (CKD-EPI)AfAm >90 (>60 ml/min/1.73 sqM) Est GFR (CKD-EPI)NonAf 80 (>60 ml/min/1.73 sqM) Glucose 127 H (74-99) mg/dL Plasma Lactic Acid Bryn 1.2 (0.7-2.0) mmol/L Calcium 8.7 (8.4-10.2) mg/dL Total Bilirubin 1.2 (0.2-1.3) mg/dL AST 26 (17-59) U/L ALT 22 (4-49) U/L Alkaline Phosphatase 72 (38-126) U/L Troponin I 0.099 H* (0.000-0.034) ng/mL Total Protein 6.0 L (6.3-8.2) g/dL Albumin 3.6 (3.5-5.0) g/dL Influenza Type A (PCR) (Not Detectd) Influenza Type B (PCR) (Not Detectd) RSV (PCR) (Not Detectd) SARS-CoV-2 (PCR) (Not Detectd) Disposition <Molly Gupta - Last Filed: 06/11/23 17:16> Time of Disposition: 20:31 <Pradip Matos - Last Filed: 06/12/23 04:27> Clinical Impression: COVID-19, Generalized weakness, Elevated troponin Disposition: ADMITTED IP TO THIS HOSP Condition: Fair
[2023-06-11] MEDS ORDERED: SODIUM CHLORIDE 0.9% 500 ML 500 ML IV STA (18:22)
[2023-06-11 18:27] LABS: Basophils % (A) 0 %; Eosinophils # (A) 0.1 k/uL (0-0.7); Eosinophils % (A) 1 %; HCT 43.4 % (39.0-53.0); HGB 14.8 gm/dL (13.0-17.5); Lymphocytes # (A) 1.8 k/uL (1.0-4.8); Lymphocytes % (A) 17 %; MCH 32.5 pg (25.0-35.0); MCV 95.4 fL (80.0-100.0); Mean Platelet Volume 7.8; Monocytes # (A) 0.6 k/uL (0-1.0); Monocytes % (A) 6 %; Neutrophils # (A) 7.6 k/uL (1.3-7.7); Neutrophils % (A) 74 %; Platelet Count 184 k/uL (150-450); RBC 4.55 m/uL (4.30-5.90); RDW 13.2 % (11.5-15.5); WBC 10.3 k/uL (3.8-10.6)
[2023-06-11 18:41] LABS: Partial Thromboplastin Time 24.7 sec (22.0-30.0); Prothrombin Time 10.9 sec (10.0-12.5)
[2023-06-11 19:23] LABS: ALT 22 U/L (4-49); AST 26 U/L (17-59); African American GFR (CKD) >90 (>60 ml/min/1.73 sqM); Albumin 3.6 g/dL (3.5-5.0); Alkaline Phosphatase 72 U/L (38-126); Anion Gap 11 mmol/L; Blood Urea Nitrogen 20 mg/dL (9-20); Calcium 8.7 mg/dL (8.4-10.2); Carbon Dioxide 18 mmol/L (22-30); Chloride 108 mmol/L (98-107); Glucose 127 mg/dL (74-99); Non-African American GFR(CKD) 80 (>60 ml/min/1.73 sqM); Sodium 137 mmol/L (137-145); Total Bilirubin 1.2 mg/dL (0.2-1.3)
[2023-06-11] MEDS ORDERED: HEPARIN SODIUM 1,000 UN/ML (10ML VL) IV ONE (20:25)
[2023-06-11] MEDS ORDERED: HEPARIN SODIUM 1,000 UN/ML (10ML VL) IV PRN (20:25)
[2023-06-11] MEDS ORDERED: NALOXONE 0.4 MG/ML 1 ML VIAL IV PRN (20:26)
[2023-06-11] MEDS ORDERED: HEPARIN SOD,PORK IN 0.45% NACL 25,000 UNIT in 0.45% NACL 1 250ML.BAG IV SCH (20:30)
[2023-06-11] MEDS: SODIUM CHLORIDE 0.9% 1,000 ML IV SCH (23:32)
--- NOTE | 2023-06-11 23:36 | XR ---
EXAMINATION TYPE: XR chest 2V DATE OF EXAM: 06/11/2023 7:17 PM CLINICAL INDICATION:Male, 88 years old with history of cough, weakness; [facility] COMPARISON: 05/09/2023 TECHNIQUE: XR chest 2V. Frontal PA and lateral views of the chest. FINDINGS: Lines/Tubes: EKG leads overlie the chest. No indwelling lines are seen. Heart/mediastinum: Cardiomediastinal silhouette is well defined. Heart appears mildly enlarged. Ath erosclerotic calcifications are seen in the aorta. Aorta is somewhat tortuous. Pulmonary vascularity: Not increased, Lungs/Pleura: Mild pulmonary hyperinflation with flattening of diaphragm suggesting background COPD. There is no evidence of pleural effusion, focal consolidation, or pneumothorax. Musculoskeletal: No acute osseous abnormality demonstrated in the limits of the exam. Degenerative c hanges of the spine and shoulders. Partially visualized anterior posterior fusion hardware in the low er cervical spine, and multilevel posterior fusion hardware extending from the lower thoracic into th e lumbar spine. Other findings: None. IMPRESSION: Changes of COPD/emphysema suggested, without evidence of acute superimposed airspace disease.
[2023-06-12 02:27] LABS: Basophils % (A) 0 %; Eosinophils % (A) 0 %; HGB 13.5 gm/dL (13.0-17.5); Lymphocytes # (A) 2.1 k/uL (1.0-4.8); Lymphocytes % (A) 24 %; MCH 32.8 pg (25.0-35.0); MCHC 33.8 g/dL (31.0-37.0); MCV 96.9 fL (80.0-100.0); Mean Platelet Volume 7.7; Monocytes # (A) 0.7 k/uL (0-1.0); Monocytes % (A) 8 %; Neutrophils # (A) 5.8 k/uL (1.3-7.7); Neutrophils % (A) 66 %; Platelet Count 150 k/uL (150-450); RBC 4.12 m/uL (4.30-5.90); RDW 13.2 % (11.5-15.5); WBC 8.8 k/uL (3.8-10.6)
[2023-06-12 02:45] LABS: INR 1.1 (<1.2); Prothrombin Time 12.2 sec (10.0-12.5)
[2023-06-12] MEDS: SODIUM CHLORIDE 0.9% 1,000 ML IV SCH ×2 (11:26→22:23)
[2023-06-12] MEDS ORDERED: CLOPIDOGREL 75 MG TAB PO SCH (11:30)
[2023-06-12] MEDS ORDERED: HEPARIN SODIUM 1,000 UN/ML (10ML VL) IV ONE (12:25)
[2023-06-12] MEDS ORDERED: HEPARIN SODIUM 1,000 UN/ML (10ML VL) IV PRN (12:25)
[2023-06-12] MEDS ORDERED: HEPARIN SOD,PORK IN 0.45% NACL 25,000 UNIT in 0.45% NACL 1 250ML.BAG IV SCH (12:30)
[2023-06-12] MEDS: ASPIRIN 81 MG PO SCH (12:51)
[2023-06-12] MEDS: ASCORBIC ACID 500 MG TAB PO SCH ×2 (12:51→22:23)
[2023-06-12] MEDS: lisinopriL 10 MG TAB PO SCH (12:51)
[2023-06-12] MEDS: DEXAMETHASONE SOD PHOSPHATE 10 MG/ML 1 ML VIAL IVP SCH (12:51)
[2023-06-12] MEDS: ATORVASTATIN 80 MG TAB PO SCH (12:51)
[2023-06-12] MEDS: CHOLECALCIFEROL 25 MCG (1000 IU) TABLET PO SCH (12:51)
[2023-06-12] MEDS: ISOSORBIDE MONONITRATE 20 MG TAB PO SCH ×2 (12:51→22:23)
[2023-06-12] MEDS: ALBUTEROL HFA INHALER INHALATION SCH ×3 (13:08→20:17)
--- NOTE | 2023-06-12 13:32 | P.CNPUL ---
History of Present Illness Consult date: 06/12/23 Requesting physician: Nayeli Michel Reason for consult: other Chief complaint: Weakness, coronavirus positive. History of present illness: Pulmonary consult dated 06/12/2023. 88-year-old male, seen in the emergency department, room 2. The patient was evaluated, on June 11, for complaints of generalized weakness, and mild shortness of breath. He apparently was feeling weak, and, fell, injuring his elbow. He apparently did not hit his head, and apparently did not have loss of consciousness. Apparently his was positive for coronavirus. He also tested positive. The patient does admit to some mild shortness of breath, cough and congestion. The patient appears not to have any respiratory distress at this time. The patient was on 2 L of oxygen. His troponins were elevated, and for that reason, he was on IV heparin. White count 8.8, hemoglobin 13.5, hematocrit 40, and platelet count 150,000. PTT is 116.2. Sodium 137, potassium 4, chlorides 108, CO2 18, BUN 20, and creatinine 0.83. Glucose 127. Troponins were 0.099, 0.108, and 0.174. He was negative for influenza A and influenza B, and respiratory syncytial virus. He did test positive for coronavirus. The patient's chest x-ray was normal without any acute infiltrate. Review of Systems REVIEW OF SYSTEMS: CONSTITUTIONAL: Weakness. NEUROLOGIC: [ Negative.] HEENT: [ Negative.] CARDIAC: [Negative.] PULMONARY: Mild shortness of breath, cough, and chest congestion. GI: Decreased oral intake. : [Negative.] RHEUMATOLOGIC: [ Negative.] IMMUNOLOGIC: [ Negative.] ENDOCRINE: [Negative. ] DERMATOLOGIC: [Negative.] Past Medical History Past Medical History: Hyperlipidemia, Hypertension, Myocardial Infarction ([place]), Osteoarthritis (OA), Pneumonia Additional Past Medical History / Comment(s): has some balance issue, uses cane when outside home, sinus problems, Last Myocardial Infarction Date:: 1993 History of Any Multi-Drug Resistant Organisms: None Reported Past Surgical History: Back Surgery, Heart Catheterization, Tonsillectomy Additional Past Surgical History / Comment(s): 2 Neck surgery, STATES HAS "PL ASTIC" IN NECK, METAL IN BACK, STENT IN HEART X2, NORTH CATARACTS, Past Anesthesia/Blood Transfusion Reactions: No Reported Reaction Additional Past Anesthesia/Blood Transfusion Reaction / Comment(s): denies PONV Date of Last Stent Placement:: 2012 Past Psychological History: No Psychological Hx Reported Smoking Status: Former smoker Past Alcohol Use History: None Reported Past Drug Use History: None Reported - Past Family History Father History Unknown: Yes Family Medical History: Myocardial Infarction ([place]) Additional Family Medical History / Comment(s): Several mi's, but from complications of pedestrain/mva-head injury. Mother History Unknown: Yes Family Medical History: CVA/TIA Daughter(s) History Unknown: Yes Family Medical History: Diabetes Mellitus Medications and Allergies Home Medications Medication Instructions Recorded Confirmed Type Isosorbide Mononitrate [Ismo] 20 mg PO BID 03/25/14 06/11/23 History Atorvastatin Calcium [Lipitor] 80 mg PO DAILY 08/12/18 06/11/23 History Finasteride [Proscar] 5 mg PO DAILY 08/12/18 06/11/23 History Tamsulosin [Flomax] 0.4 mg PO DAILY 12/07/19 06/11/23 History Aspirin EC [Ecotrin Low Dose] 81 mg PO DAILY 06/12/21 06/11/23 History Clopidogrel [Plavix] 75 mg PO DAILY #90 tab 06/02/22 06/11/23 Rx Propranolol [Inderal] 10 mg PO DAILY 06/11/23 06/11/23 History lisinopriL [Zestril] 10 mg PO DAILY 06/11/23 06/11/23 History Allergies Allergy/AdvReac Type Severity Reaction Status Date / Time adhesive tape Allergy pulls skin Verified 06/11/23 20:25 off adhesive dressings Allergy pulls skin Uncoded 06/11/23 20:25 off Physical Exam Osteopathic Statement: *. No significant issues noted on an osteopathic structural exam other than those noted in the History and Physical/Consult. Vitals: Vital Signs Temp Pulse Resp BP Pulse Ox 06/12/23 12:56 52 L 18 163/72 99 06/12/23 10:43 99.1 F 67 18 131/87 96 06/12/23 08:45 100.3 F H 59 L 18 161/63 95 06/12/23 02:50 60 18 144/71 98 06/12/23 00:00 97 06/11/23 23:00 75 18 161/71 91 L 06/11/23 19:32 62 18 150/58 97 06/11/23 18:11 60 18 130/97 96 06/11/23 17:06 98.7 F 72 18 135/61 95 Intake and Output 06/11/23 06/12/23 06/12/23 22:59 06:59 14:59 Intake Total 51.528 Balance 51.528 Intake: Intake, IV Titration 51.528 Amount Heparin Sod,Pork in 0.45% 51.528 NaCl 25,000 unit In 0.45 % NaCl 1 250ml.bag @ 12 UNITS/KG/HR 8.709 mls/hr IV [facility] Rx#: [id number] Other: Weight 72.575 kg No acute distress, oriented 3. No respiratory distress. Currently on 2 L of oxygen. HEENT examination is grossly unremarkable. Mucous membranes are moist. No oral lesions. Neck supple. Full range of motion. No adenopathy thyromegaly or neck vein distention. Cardiovascular examination reveals regular rhythm rate. S1-S2 normal. No S3 or S4. No discernible murmur noted. Heart sounds are distant. Heart rate 52 bpm. Lungs reveal mostly clear breath sounds. Minimal scattered rhonchi. No wheezes or crackles. Breath sounds equal. Saturations are 99%. Abdomen soft bowel sounds are heard. No masses or tenderness. Extremities are intact. No cyanosis clubbing or edema. Skin is without rash or lesion. Neurologic examination is brief but nonfocal. Results - Laboratory Findings CBC and BMP: 06/12/23 01:58 06/11/23 17:26 PT/INR, D-dimer PT 12.2 sec (10.0-12.5) 06/12/23 01:58 INR 1.1 (<1.2) 06/12/23 01:58 Abnormal lab findings: Abnormal Labs 06/11/23 06/11/23 06/11/23 17:26 17:26 19:07 RBC APTT Chloride 108 H Carbon Dioxide 18 L Glucose 127 H Troponin I 0.099 H* Total Protein 6.0 L SARS-CoV-2 (PCR) Detected A 06/11/23 06/12/23 06/12/23 22:07 01:58 01:58 RBC APTT 116.2 H* Chloride Carbon Dioxide Glucose Troponin I 0.108 H* 0.174 H* Total Protein SARS-CoV-2 (PCR) 06/12/23 01:58 RBC 4.12 L APTT Chloride Carbon Dioxide Glucose Troponin I Total Protein SARS-CoV-2 (PCR) - Diagnostic Findings Chest x-ray: image reviewed Assessment and Plan Assessment: Acute coronavirus infection, without coronavirus associated pneumonia. Rule out non-ST segment elevation myocardial infarction. Coronary artery disease, S/P stent placement. History of myocardial infarction. History of hyperlipidemia. History of hypertension. History of osteoarthritis. History of pneumonia. Prior history of tobacco use. Plan: Plan dated 06/12/2023. The patient's chest x-ray appears normal. His saturations are 98-99% on 2 L. The patient's troponin levels are elevated. He is currently on 2 L of oxygen. He is also on IV heparin. Labs, x-rays, and medications are reviewed. The patient's chest x-ray is normal. We will continue to follow and make recommendations along the way. Time with Patient: Greater than 30
[2023-06-12] MEDS: ZINC SULFATE 220 MG CAP PO SCH (13:37)
--- NOTE | 2023-06-12 13:55 | P.HPIM ---
History of Present Illness H&P Date: 06/12/23 Chief Complaint: COVID-19/type II NV HISTORY OF PRESENT ILLNESS: This is an 88-year-old male patient of eduardo and Dr. Myers with a past medical history coronary artery disease status post PCI of the LAD and RCA, history of hypertension, hyperlipidemia BPH, neck and back surgeries for degenerative arthritis, patient was hospitalized at [facility] in 05/31/2023 and he was found to have a significant stenosis of the proximal LAD after heart cath physician that was done by Dr. Quintana, he underwent left heart catheterization with PCI of the proximal LAD using a size stents, and he did have a balloon angioplasty for dilatation as well, patient has done well over the last few months, patient presented to the emergency department at [facility] last night because of generalized fatigue and weakness and not able to do anything, unfortunately his who is the primary caregiver for him was diagnosed with covert and she has been in bed due to her illness, so he was brought to the ER for evaluation, he was tested positive for COVID-19, and the patient was found to have a slight elevation of the troponin I suggestive of a type II NV without evidence of non-ST elevation NV, and because of the presentation he was admitted to the hospital will be seen in consultation by pulmonary and cardiology, patient was started initially on heparin drip, therefore this will be discontinued and he will be placed on Lovenox 40 mg subcutaneously every 24 hours for DVT prophylaxis, patient will be maintained on vitamin D3 1000 unit once every day, vitamin C 500 mg orally once every day, and zinc 50 minute gram orally once every day, I will start the patient on dexamethasone 6 mg IV push every 24 hours. REVIEW OF SYSTEMS: Constitutional: No documented fever, no chills, no night sweats. No weight change. positive for weakness, fatigue or lethargy. No daytime sleepiness. HEENT: No headache. No blurred vision or double vision, no loss of vision. No loss of Hearing, no ringing in the ears, no dizziness. No nasal drainage or congestion. No epistaxis. No sore throat. Lungs: Positive for shortness of breath, no cough, no sputum production. No wheezing. Reports dyspnea with activity. Cardiovascular: No chest pain, no lower extremity edema. No palpitations. No paroxysmal nocturnal dyspnea. No orthopnea. No lightheadedness or dizziness. No syncopal episodes. Abdominal: Reports no abdominal pain. No nausea, vomiting. No diarrhea. No constipation. No bloody or tarry stools reports loss of appetite. Genitourinary: No dysuria, increased frequency, urgency. No urinary retention. Musculoskeletal: No myalgias. No muscle weakness,positive for gait dysfunction, positive for frequent falls, positive for back pain, and neck pain. Integumentary: No wounds, no lesions. No rash or pruritus. No unusual bruising. No change in hair or nails. Neurologic: No aphasia. No facial droop. No change in mentation. No head injury. No headache. No paralysis. No paresthesia. Psychiatric: positive for depression. No anxiety. positive for mood swings. Endocrine: No abnormal blood sugars. No weight change. PAST MEDICAL HISTORY: CAD post-PCI of the LAD and RCA. Minimal LV dysfunction. Hypertension and hypertensive cardiovascular disease. Hyperlipidemia. Essential tremor. BPH . 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 Recurrent falls. PAST SURGICAL HISTORY: Posterior cervical discectomy with fusion. Lumbar discectomy with fusion . Bilateral cataract surgery Left heart catheterization with PCI of the LAD and RCA. SOCIAL HISTORY: Patient used to smoke about pack every day he started smoking when he was 18-year-old and quit in 1989 patient used to be heavy drinker he quit drinking in 1986 he lives with his , he uses a cane for immolation, he denies any drug use or abuse. FAMILY HISTORY: Father at age of 78 from multiple injuries due to pedestrian motor vehicle accident injury but he had several MIs, mother at age of 80 from CVA/TIA, patient has 2 daughters one with obesity hypertension hyperlipidemia and diabetes mellitus type 2, the other one with MS. PHYSICAL EXAMINATION: General: 88-year-old male lying down in bed in no apparent distress. HEENT: Head is atraumatic, normocephalic, pupils were equal round reactive to light and recommendation, extraocular muscle movement were intact, sclera nonicteric, conjunctivae were pale, mucous membranes of the mouth are somewhat dry. Neck: Supple, no JVP, normal carotid upstroke bilaterally, no lymphadenopathy. Chest: Decreased breath sounds at the bases, few rhonchi, no extremity wheezes, no chest wall tenderness, no intercostal retractions. Heart: First heart sound is normal, second heart sounds normal there is systolic ejection murmur 2/6 located in the left sternal border. Abdomen: Soft, nontender, nondistended, positive bowel sounds. Extremities: There is no edema no calf tenderness DP +2 bilaterally. Neurologic examination: Patient is awake alert and oriented X 3, cranial nerves II-12 appear grossly intact, muscle power were 5 out of 5 in upper extremities and 5 out of 5 in bilateral lower extremities, deep tendon reflexes normal bilaterally. ASSESSMENT AND PLAN: 1. COVID-19 infection. Start the patient on droplet precautions, continue patient on dexamethasone 6 mg IV push every 24 hours, continue oxygen support as needed, continue vitamin D3 2000 units once every day, vitamin C 500 mg once every day, 650 mg once every day, primary consultation with Dr. Cantu. 2. Myocardial injury with type II NV due to COVID-19 infection without evidence of non-ST elevation NV. Discontinue heparin drip, start the patient on Lovenox 40 mg subcu Tuesday every 24 hours, continue patient on his cardiac medications. 3. History of CAD post-PCI of the LAD and RCA. Last heart catheterization November 2019 showed stable disease. Continue aspirin 81 mg once every day, Lipitor 80 mg once every day, lisinopril 10 mg every day, isosorbide 20 mg orally twice e very day, consider adding Ranexa 500 mg orally twice every day. 4. Hypertension and hypertensive cardiovascular disease. Continue lisinopril 10 mg orally once every day. 5. Sinus bradycardia with significant first-degree AV block. Monitor the patient overnight. 6. Hyperlipidemia. Continue Lipitor 80 mg once every day, keep LDL cholesterol 55-70. 7. Enlarged prostate continue Flomax 0.4 mg once every day. 8. 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 Continue with physical therapy as needed. 9. Chronic diastolic heart failure. Continue patient on lisinopril 10 mg orally once every day, continue with Lasix 40 mg orally once every day Tuesday along with potassium supplements. 10. DVT prophylaxis. Lovenox 40 mg subcutaneously every 24 hours as well as bilateral knee-high JENNFIER hose. 11. GI prophylaxis. Continue Protonix 40 mg orally once every day. 12. Admit to inpatient. Estimate a length of stay 2 midnights. 13. Patient is full code. Past Medical History Past Medical History: Hyperlipidemia, Hypertension, Myocardial Infarction (NV), Osteoarthritis (OA), Pneumonia Additional Past Medical History / Comment(s): has some balance issue, uses cane when outside home, sinus problems, Last Myocardial Infarction Date:: 1993 History of Any Multi-Drug Resistant Organisms: None Reported Past Surgical History: Back Surgery, Heart Catheterization, Tonsillectomy Additional Past Surgical History / Comment(s): 2 Neck surgery, STATES HAS "PLASTIC" IN NECK, METAL IN BACK, STENT IN HEART X2, NORTH CATARACTS, Past Anesthesia/Blood Transfusion Reactions: No Reported Reaction Additional Past Anesthesia/Blood Transfusion Reaction / Comment(s): denies PONV Date of Last Stent Placement:: 2012 Past Psychological History: No Psychological Hx Reported Smoking Status: Former smoker Past Alcohol Use History: None Reported Past Drug Use History: None Reported - Past Family History Father History Unknown: Yes Family Medical History: Myocardial Infarction (NV) Additional Family Medical History / Comment(s): Several mi's, but from complications of pedestrain/mva-head injury. Mother History Unknown: Yes Family Medical History: CVA/TIA Daughter(s) History Unknown: Yes Family Medical History: Diabetes Mellitus Medications and Allergies Home Medications Medication Instructions Recorded Confirmed Type Isosorbide Mononitrate [Ismo] 20 mg PO BID 03/25/14 06/11/23 History Atorvastatin Calcium [Lipitor] 80 mg PO DAILY 08/12/18 06/11/23 History Finasteride [Proscar] 5 mg PO DAILY 08/12/18 06/11/23 History Tamsulosin [Flomax] 0.4 mg PO DAILY 12/07/19 06/11/23 History Aspirin EC [Ecotrin Low Dose] 81 mg PO DAILY 06/12/21 06/11/23 History Clopidogrel [Plavix] 75 mg PO DAILY #90 tab 06/02/22 06/11/23 Rx Propranolol [Inderal] 10 mg PO DAILY 06/11/23 06/11/23 History lisinopriL [Zestril] 10 mg PO DAILY 06/11/23 06/11/23 History Allergies Allergy/AdvReac Type Severity Reaction Status Date / Time adhesive tape Allergy pulls skin Verified 06/11/23 20:25 off adhesive dressings Allergy pulls skin Uncoded 06/11/23 20:25 off Physical Exam Vitals: Vital Signs Temp Pulse Resp BP Pulse Ox 06/12/23 10:43 99.1 F 67 18 131/87 96 06/12/23 08:45 100.3 F H 59 L 18 161/63 95 06/12/23 02:50 60 18 144/71 98 06/12/23 00:00 97 06/11/23 23:00 75 18 161/71 91 L 06/11/23 19:32 62 18 150/58 97 06/11/23 18:11 60 18 130/97 96 06/11/23 17:06 98.7 F 72 18 135/61 95 Intake and Output 06/11/23 06/12/23 06/12/23 22:59 06:59 14:59 Intake Total 51.528 Balance 51.528 Intake: Intake, IV Titration 51.528 Amount Heparin Sod,Pork in 0.45% 51.528 NaCl 25,000 unit In 0.45 % NaCl 1 250ml.bag @ 12 UNITS/KG/HR 8.709 mls/hr IV .Q24H [facility] Rx#: [id number] Other: Weight 72.575 kg Results CBC & Chem 7: 06/12/23 01:58 06/11/23 17:26 Labs: Abnormal Lab Results - Last 24 Hours (Table) 06/11/23 06/11/23 06/11/23 Range/Units 17:26 17:26 19:07 RBC (4.30-5.90) m/uL APTT (22.0-30.0) sec Chloride 108 H (98-107) mmol/L Carbon Dioxide 18 L (22-30) mmol/L Glucose 127 H (74-99) mg/dL Troponin I 0.099 H* (0.000-0.034) ng/mL Total Protein 6.0 L (6.3-8.2) g/dL SARS-CoV-2 (PCR) Detected A (Not Detectd) 06/11/23 06/12/23 06/12/23 Range/Units 22:07 01:58 01:58 RBC (4.30-5.90) m/uL APTT 116.2 H* (22.0-30.0) sec Chloride (98-107) mmol/L Carbon Dioxide (22-30) mmol/L Glucose (74-99) mg/dL Troponin I 0.108 H* 0.174 H* (0.000-0.034) ng/mL Total Protein (6.3-8.2) g/dL SARS-CoV-2 (PCR) (Not Detectd) 06/12/23 Range/Units 01:58 RBC 4.12 L (4.30-5.90) m/uL APTT (22.0-30.0) sec Chloride (98-107) mmol/L Carbon Dioxide (22-30) mmol/L Glucose (74-99) mg/dL Troponin I (0.000-0.034) ng/mL Total Protein (6.3-8.2) g/dL SARS-CoV-2 (PCR) (Not Detectd)
[2023-06-12 14:25] LABS: Basophils % (A) 1 %; Eosinophils % (A) 0 %; HCT 39.3 % (39.0-53.0); HGB 13.3 gm/dL (13.0-17.5); Lymphocytes % (A) 24 %; MCH 33.4 pg (25.0-35.0); MCHC 33.9 g/dL (31.0-37.0); MCV 98.4 fL (80.0-100.0); Mean Platelet Volume 7.8; Monocytes # (A) 0.6 k/uL (0-1.0); Monocytes % (A) 7 %; Neutrophils # (A) 5.6 k/uL (1.3-7.7); Neutrophils % (A) 67 %; Platelet Count 156 k/uL (150-450); WBC 8.4 k/uL (3.8-10.6)
[2023-06-12 14:41] LABS: INR 1.1 (<1.2); Partial Thromboplastin Time 49.7 sec (22.0-30.0); Prothrombin Time 12.2 sec (10.0-12.5)
--- NOTE | 2023-06-12 19:15 | P.CRDCN ---
History of Present Illness Consult date: 06/12/23 History of present illness: HISTORY OF PRESENTING ILLNESS 88-year-old male with past medical history of CAD status post PCI to LAD, RCA, history of hypertension, dyslipidemia, BPH, known to Dr. Myers. His last heart catheterization was in May 2022 intermediate lesion in LAD ifr positive requiring PCI. He had moderate in-stent stenosis in RCA and moderate disease in LCx He was brought to the hospital because of worsening generalized weakness, resulting in a mechanical fall along with worsening shortness of breath. He was tested positive for COVID-19. On admission blood pressure 144/71 pulse 60. Troponin 0.09, 0.1, 0.17 ECG showed sinus rhythm with Q waves in inferior leads consistent of old [place], LVH, IVCD, PVCs Chest x-ray was normal with no signs of primary congestion Hemoglobin 13, BUN 20, creatinine 0.8 Last echo from February 2023 shows moderate LVH, EF 55-50%, moderate aortic stenosis with mean gradient of 20 mmHg REVIEW OF SYSTEMS 14 point review of system is negative except what is mentioned above in HPI. PHYSICAL EXAMINATION Vital signs reviewed. Head: Normocephalic. Eyes: Sclerae nonicteric. Neck: Brisk carotid upstroke, no jugular venous distention. Lungs: Clear to auscultation. Heart: Regular rate and rhythm, S1-S2, no S3, no murmur or rub. Abdomen: Soft nontender, positive bowel sounds no organomegaly. Extremities: No edema, intact distal pulses. Neuro: Alert, oritented, no focal deficits ASSESSMENT NSTEMI Generalized weakness and mechanical fall COVID Positive CAD status post PCI to LAD May 2022. Moderate in-stent stenosis in RCA stent. Moderate LCx disease Moderate LVH [id number] aortic stenosis Frequent Premature ventricular contractions PLAN Start IV heparin drip Aspirin 81 mg, atorvastatin Obtain an echocardiogram Beta shayy was not started due to low resting heart rate in 50s to 60s Reevaluate the need of beta shayy tomorrow Past Medical History Past Medical History: Hyperlipidemia, Hypertension, Myocardial Infarction ([place]), Osteoarthritis (OA), Pneumonia Additional Past Medical History / Comment(s): has some balance issue, uses cane when outside home, sinus problems, Last Myocardial Infarction Date:: 1993 History of Any Multi-Drug Resistant Organisms: None Reported Past Surgical History: Back Surgery, Heart Catheterization, Tonsillectomy Additional Past Surgical History / Comment(s): 2 Neck surgery, STATES HAS "THEE STIC" IN NECK, METAL IN BACK, STENT IN HEART X2, NORTH CATARACTS, Past Anesthesia/Blood Transfusion Reactions: No Reported Reaction Additional Past Anesthesia/Blood Transfusion Reaction / Comment(s): denies PONV Date of Last Stent Placement:: 2012 Past Psychological History: No Psychological Hx Reported Smoking Status: Former smoker Past Alcohol Use History: None Reported Past Drug Use History: None Reported - Past Family History Father History Unknown: Yes Family Medical History: Myocardial Infarction (TN) Additional Family Medical History / Comment(s): Several mi's, but from complications of pedestrain/mva-head injury. Mother History Unknown: Yes Family Medical History: CVA/TIA Daughter(s) History Unknown: Yes Family Medical History: Diabetes Mellitus Medications and Allergies Home Medications Medication Instructions Recorded Confirmed Type Isosorbide Mononitrate [Ismo] 20 mg PO BID 03/25/14 06/11/23 History Atorvastatin Calcium [Lipitor] 80 mg PO DAILY 08/12/18 06/11/23 History Finasteride [Proscar] 5 mg PO DAILY 08/12/18 06/11/23 History Tamsulosin [Flomax] 0.4 mg PO DAILY 12/07/19 06/11/23 History Aspirin EC [Ecotrin Low Dose] 81 mg PO DAILY 06/12/21 06/11/23 History Clopidogrel [Plavix] 75 mg PO DAILY #90 tab 06/02/22 06/11/23 Rx Propranolol [Inderal] 10 mg PO DAILY 06/11/23 06/11/23 History lisinopriL [Zestril] 10 mg PO DAILY 06/11/23 06/11/23 History Allergies Allergy/AdvReac Type Severity Reaction Status Date / Time adhesive tape Allergy pulls skin Verified 06/11/23 20:25 off adhesive dressings Allergy pulls skin Uncoded 06/11/23 20:25 off Physical Exam Vitals: Vital Signs Temp Pulse Resp BP Pulse Ox 06/12/23 18:00 69 18 111/68 95 06/12/23 12:56 52 L 18 163/72 99 06/12/23 10:43 99.1 F 67 18 131/87 96 06/12/23 08:45 100.3 F H 59 L 18 161/63 95 06/12/23 02:50 60 18 144/71 98 06/12/23 00:00 97 06/11/23 23:00 75 18 161/71 91 L 06/11/23 19:32 62 18 150/58 97 Intake and Output 06/12/23 06/12/23 06/12/23 06:59 14:59 22:59 Intake Total 51.528 Balance 51.528 Intake: Intake, IV Titration 51.528 Amount Heparin Sod,Pork in 0.45% 51.528 NaCl 25,000 unit In 0.45 % NaCl 1 250ml.bag @ 12 UNITS/KG/HR 8.709 mls/hr IV .Q24H [facility] Rx#: [id number] Results 06/12/23 13:17 06/11/23 17:26 Cardiac Enzymes 06/11/23 06/11/23 06/11/23 Range/Units 17:26 19:07 22:07 AST 26 (17-59) U/L Troponin I 0.099 H* 0.108 H* (0.000-0.034) ng/mL 06/12/23 Range/Units 01:58 AST (17-59) U/L Troponin I 0.174 H* (0.000-0.034) ng/mL Coagulation 06/12/23 06/12/23 06/12/23 Range/Units 01:58 01:58 13:17 PT 12.2 12.2 (10.0-12.5) sec APTT 116.2 H* 49.7 H (22.0-30.0) sec 06/12/23 Range/Units 18:20 PT (10.0-12.5) sec APTT 133.5 H* (22.0-30.0) sec CBC 06/12/23 06/12/23 Range/Units 01:58 13:17 WBC 8.8 8.4 (3.8-10.6) k/uL RBC 4.12 L 4.00 L (4.30-5.90) m/uL Hgb 13.5 13.3 (13.0-17.5) gm/dL Hct 40.0 39.3 (39.0-53.0) % Plt Count 150 156 (150-450) k/uL Comprehensive Metabolic Panel 06/11/23 Range/Units 17:26 Sodium 137 (137-145) mmol/L Potassium 4.0 (3.5-5.1) mmol/L Chloride 108 H (98-107) mmol/L Carbon Dioxide 18 L (22-30) mmol/L BUN 20 (9-20) mg/dL Creatinine 0.83 (0.66-1.25) mg/dL Glucose 127 H (74-99) mg/dL Calcium 8.7 (8.4-10.2) mg/dL AST 26 (17-59) U/L ALT 22 (4-49) U/L Alkaline Phosphatase 72 (38-126) U/L Total Protein 6.0 L (6.3-8.2) g/dL Albumin 3.6 (3.5-5.0) g/dL Current Medications Generic Name Dose Route Start Last Admin Trade Name Freq PRN Reason Stop Dose Admin Albuterol Sulfate 2 puff 06/12/23 12:00 06/12/23 15:33 Albuterol Hfa Inhaler INHALATION 2 puff RT-QID FATMATA Administration Ascorbic Acid 500 mg 06/12/23 11:45 06/12/23 12:51 Ascorbic Acid 500 Mg Tab PO 500 mg BID FATMATA Administration Aspirin 81 mg 06/12/23 11:30 06/12/23 12:51 Aspirin 81 Mg PO 81 mg DAILY FATMATA Administration Atorvastatin Calcium 80 mg 06/12/23 11:30 06/12/23 12:51 Atorvastatin 80 Mg Tab PO 80 mg DAILY FATMATA Administration Cholecalciferol 50 mcg 06/12/23 11:45 06/12/23 12:51 Cholecalciferol 25 Mcg (1000 Iu) Tablet PO 50 mcg DAILY FATMATA Administration Dexamethasone Sodium Phosphate 6 mg 06/12/23 11:45 06/12/23 12:51 Dexamethasone Sod Phosphate 10 Mg/Ml 1 Ml Vial IVP 6 mg DAILY FATMATA Administration Finasteride 5 mg 06/13/23 09:00 Finasteride 5 Mg Tab PO DAILY FATMATA Heparin Sodium (Porcine) 0 unit 06/12/23 12:25 Heparin Sodium 1,000 Un/Ml (10ml Vl) IV PER PROTOCOL PRN Low PTT Protocol Sodium Chloride 1,000 mls @ 75 mls/hr 06/11/23 20:30 06/12/23 11:26 Saline 0.9% IV 75 mls/hr .[id number] FATMATA Administration Heparin Sodium/Sodium Chloride 250 mls @ 8.709 mls/hr 06/12/23 12:30 06/12/23 15:14 25,000 unit/ Sodium Chloride IV 12 units/kg/hr .Q24H FATMATA 8.709 mls/hr Administration Protocol 12 UNITS/KG/HR Isosorbide Mononitrate 20 mg 06/12/23 11:30 06/12/23 12:51 Isosorbide Mononitrate 20 Mg Tab PO 20 mg BID FATMATA Administration Lisinopril 10 mg 06/12/23 11:30 06/12/23 12:51 Lisinopril 10 Mg Tab PO 10 mg DAILY FATMATA Administration Naloxone HCl 0.2 mg 06/11/23 20:26 Naloxone 0.4 Mg/Ml 1 Ml Vial IV Q2M PRN Opioid Reversal Pantoprazole Sodium 40 mg 06/13/23 07:30 Pantoprazole 40 Mg Tablet PO AC-BRKFST [facility] Propranolol HCl 10 mg 06/13/23 09:00 Propranolol 10 Mg Tab PO DAILY [facility] Tamsulosin HCl 0.4 mg 06/13/23 09:00 Tamsulosin 0.4 Mg Cap.Er.24h PO DAILY [facility] Zinc Sulfate 220 mg 06/12/23 11:45 06/12/23 13:37 Zinc Sulfate 220 Mg Cap PO 220 mg DAILY FATMATA Administration Intake and Output 06/12/23 06/12/23 06/12/23 06:59 14:59 22:59 Intake Total 51.528 Balance 51.528 Intake: Intake, IV Titration 51.528 Amount Heparin Sod,Pork in 0.45% 51.528 NaCl 25,000 unit In 0.45 % NaCl 1 250ml.bag @ 12 UNITS/KG/HR 8.709 mls/hr IV .Q24H [facility] Rx#: [id number] 06/12/23 13:17 06/11/23 17:26
[2023-06-13] MEDS ORDERED: FUROSEMIDE 10 MG/ML 4 ML VIAL IV STA (08:15)
[2023-06-13] MEDS: ALBUTEROL HFA INHALER INHALATION SCH ×4 (08:29→20:30)
[2023-06-13] MEDS ORDERED: ENOXAPARIN 40 MG/0.4 ML SYRINGE SQ SCH (09:00)
[2023-06-13] MEDS: lisinopriL 10 MG TAB PO SCH (09:14)
[2023-06-13] MEDS: CHOLECALCIFEROL 25 MCG (1000 IU) TABLET PO SCH (09:14)
[2023-06-13] MEDS: ZINC SULFATE 220 MG CAP PO SCH (09:14)
[2023-06-13] MEDS: ASPIRIN 81 MG PO SCH (09:14)
[2023-06-13] MEDS: ASCORBIC ACID 500 MG TAB PO SCH ×2 (09:15→21:01)
[2023-06-13] MEDS: ATORVASTATIN 80 MG TAB PO SCH (09:15)
[2023-06-13] MEDS: FINASTERIDE 5 MG TAB PO SCH (09:15)
[2023-06-13] MEDS: DEXAMETHASONE SOD PHOSPHATE 10 MG/ML 1 ML VIAL IVP SCH (09:16)
[2023-06-13 09:29] LABS: Basophils % (A) 0 %; Eosinophils % (A) 0 %; Lymphocytes # (A) 2.7 k/uL (1.0-4.8); Lymphocytes % (A) 21 %; MCH 33.5 pg (25.0-35.0); MCHC 34.1 g/dL (31.0-37.0); MCV 98.2 fL (80.0-100.0); Mean Platelet Volume 7.4; Monocytes # (A) 0.7 k/uL (0-1.0); Monocytes % (A) 6 %; Neutrophils # (A) 9.3 k/uL (1.3-7.7); Neutrophils % (A) 72 %; Platelet Count 182 k/uL (150-450); RBC 4.17 m/uL (4.30-5.90); RDW 12.9 % (11.5-15.5); WBC 12.9 k/uL (3.8-10.6)
[2023-06-13 09:42] LABS: Prothrombin Time 10.8 sec (10.0-12.5)
[2023-06-13] MEDS: PANTOPRAZOLE 40 MG TABLET PO SCH (09:46)
[2023-06-13] MEDS: TAMSULOSIN 0.4 MG CAP.ER.24H PO SCH (09:47)
[2023-06-13] MEDS: ISOSORBIDE MONONITRATE 20 MG TAB PO SCH ×2 (10:09→21:01)
[2023-06-13] MEDS: PROPRANOLOL 10 MG TAB PO SCH (10:10)
[2023-06-13] MEDS ORDERED: HEPARIN SODIUM 1,000 UN/ML (10ML VL) IV PRN (11:55)
[2023-06-13] MEDS ORDERED: HEPARIN SOD,PORK IN 0.45% NACL 25,000 UNIT in 0.45% NACL 1 250ML.BAG IV SCH (12:00)
--- NOTE | 2023-06-13 12:12 | P.PN ---
Subjective Progress Note Date: 06/13/23 88-year-old male, seen in the emergency department, room 2. The patient was evaluated, on June 11, for complaints of generalized weakness, and mild shortness of breath. He apparently was feeling weak, and, fell, injuring his elbow. He apparently did not hit his head, and apparently did not have loss of consciousness. Apparently his was positive for coronavirus. He also tested positive. The patient does admit to some mild shortness of breath, cough and congestion. The patient appears not to have any respiratory distress at this time. The patient was on 2 L of oxygen. His troponins were elevated, and for that reason, he was on IV heparin. White count 8.8, hemoglobin 13.5, hematocrit 40, and platelet count 150,000. PTT is 116.2. Sodium 137, potassium 4, chlorides 108, CO2 18, BUN 20, and creatinine 0.83. Glucose 127. Troponins were 0.099, 0.108, and 0.174. He was negative for influenza A and influenza B, and respiratory syncytial virus. He did test positive for coronavirus. The patient's chest x-ray was normal without any acute infiltrate. On today's evaluation of 06/13/2023, I'm seeing the patient for a follow-up. He is currently on room and oxygen. No major respiratory difficulties. The patient was tested positive for Covid 19. He has received previous vaccination. No major respiratory distress at this point in time.The physical is at 12.9 with a hemoglobin of 14, coagulation profile is normal and the patient is currently off the IV heparin as the PTT is quite elevated. Troponins are 0.12 respectively. History of any chest pain. Objective - Vital Signs Vital signs: Vital Signs Temp 99.1 F 06/12/23 10:43 Pulse 65 06/13/23 10:00 Resp 18 06/13/23 10:00 BP 190/70 06/13/23 10:00 Pulse Ox 95 06/13/23 10:00 FiO2 - Exam No acute distress, oriented 3. No respiratory distress. Currently on RA HEENT examination is grossly unremarkable. Mucous membranes are moist. No oral lesions. Neck supple. Full range of motion. No adenopathy thyromegaly or neck vein distention. Cardiovascular examination reveals regular rhythm rate. S1-S2 normal. No S3 or S4. No discernible murmur noted. Heart sounds are distant. Heart rate 52 bpm. Lungs reveal mostly clear breath sounds. Minimal scattered rhonchi. No wheezes or crackles. Breath sounds equal. Abdomen soft bowel sounds are heard. No masses or tenderness. Extremities are intact. No cyanosis clubbing or edema. Skin is without rash or lesion. Neurologic examination is brief but nonfocal. - Labs CBC & Chem 7: 06/13/23 08:40 06/11/23 17:26 Labs: Abnormal Lab Results - Last 24 Hours (Table) 06/12/23 06/12/23 06/12/23 Range/Units 13:17 13:17 18:20 WBC (3.8-10.6) k/uL RBC 4.00 L (4.30-5.90) m/uL Neutrophils # (1.3-7.7) k/uL APTT 49.7 H 133.5 H* (22.0-30.0) sec 06/13/23 Range/Units 08:40 WBC 12.9 H (3.8-10.6) k/uL RBC 4.17 L (4.30-5.90) m/uL Neutrophils # 9.3 H (1.3-7.7) k/uL APTT (22.0-30.0) sec Assessment and Plan Plan: Acute coronavirus infection, without coronavirus associated pneumonia. The patient is currently on room air oxygen. Chest x-ray showed no clear evidence of any pneumonia. Acute non-ST segment elevation myocardial infarction. Coronary artery disease, S/P stent placement. Previous cardiac catheterization from May 2022 showed that the patient has undergone PCI to LAD and he has a moderate in-stent stenosis of the RCA stent a moderate circumflex disease. History of myocardial infarction. History of hyperlipidemia. History of hypertension. History of osteoarthritis. History of pneumonia. Prior history of tobacco use. Plan: Continue IV heparin pending cardiology consultation Patient is currently on room air oxygen. The chest x-ray shows no acute consolidation or airspace disease Echocardiogram IV fluids Continue multiple vitamin supplements We'll continue to follow
[2023-06-13] MEDS: SODIUM CHLORIDE 0.9% 1,000 ML IV SCH (13:10)
--- NOTE | 2023-06-13 13:34 | P.PN ---
Subjective Progress Note Date: 06/13/23 HISTORY OF PRESENT ILLNESS: This is an 88-year-old male patient of eduardo and Dr. Myers with a past medical history coronary artery disease status post PCI of the LAD and RCA, history of hypertension, hyperlipidemia BPH, neck and back surgeries for degenerative arthritis, patient was hospitalized at [facility] in 05/31/2023 and he was found to have a significant stenosis of the proximal LAD after heart cath physician that was done by Dr. Quintana, he underwent left heart catheterization with PCI of the proximal LAD using a size stents, and he did have a balloon angioplasty for dilatation as well, patient has done well over the last few months, patient presented to the emergency department at [facility] last night because of generalized fatigue and weakness and not able to do anything, unfortunately his who is the primary caregiver for him was diagnosed with covert and she has been in bed due to her illness, so he was brought to the ER for evaluation, he was tested positive for COVID-19, and the patient was found to have a slight elevation of the troponin I suggestive of a type II ID without evidence of non-ST elevation ID, and because of the presentation he was admitted to the hospital will be seen in consultation by pulmonary and cardiology, patient was started initially on heparin drip, therefore this will be discontinued and he will be placed on Lovenox 40 mg subcutaneously every 24 hours for DVT prophylaxis, patient will be maintained on vitamin D3 1000 unit once every day, vitamin C 500 mg orally once every day, and zinc 50 minute gram orally once every day, I will start the patient on dexamethasone 6 mg IV push every 24 hours. 06/13: Patient has been transferred up to the cardiac stepdown unit. He has been seen by cardiology while in the emergency center this morning for recheck and advised to continue heparin drip for 1 more day, 1 dose of IV Lasix 40 mg given an echocardiogram is pending. Patient is currently denying having any chest pain or shortness of breath. No cough or wheezing. No nausea or vomiting. Patient has been afebrile, heart rate in the 50s and 60s, blood pressure 136/82, pulse ox 95% on room air. REVIEW OF SYSTEMS: Constitutional: No documented fever, no chills, no night sweats. No weight change. positive for weakness, fatigue or lethargy. No daytime sleepiness. HEENT: No headache. No blurred vision or double vision, no loss of vision. No loss of Hearing, no ringing in the ears, no dizziness. No nasal drainage or congestion. No epistaxis. No sore throat. Lungs: Positive for shortness of breath, no cough, no sputum production. No wheezing. Reports dyspnea with activity. Cardiovascular: No chest pain, no lower extremity edema. No palpitations. No paroxysmal nocturnal dyspnea. No orthopnea. No lightheadedness or dizziness. No syncopal episodes. Abdominal: Reports no abdominal pain. No nausea, vomiting. No diarrhea. No constipation. No bloody or tarry stools reports loss of appetite. Genitourinary: No dysuria, increased frequency, urgency. No urinary retention. Musculoskeletal: No myalgias. No muscle weakness,positive for gait dysfunction, positive for frequent falls, positive for back pain, and neck pain. Integumentary: No wounds, no lesions. No rash or pruritus. No unusual bruising. No change in hair or nails. Neurologic: No aphasia. No facial droop. No change in mentation. No head injury. No headache. No paralysis. No paresthesia. Psychiatric: positive for depression. No anxiety. positive for mood swings. Endocrine: No abnormal blood sugars. No weight change. PHYSICAL EXAMINATION: General: 88-year-old male lying down in bed in no apparent distress. HEENT: Head is atraumatic, normocephalic, pupils were equal round reactive to light and recommendation, extraocular muscle movement were intact, sclera nonicteric, conjunctivae were pale, mucous membranes of the mouth are somewhat dry. Neck: Supple, no JVP, normal carotid upstroke bilaterally, no lymphadenopathy. Chest: Decreased breath sounds at the bases, few rhonchi, no extremity wheezes, no chest wall tenderness, no intercostal retractions. Heart: First heart sound is normal, second heart sounds normal there is systolic ejection murmur 2/6 located in the left sternal border. Abdomen: Soft, nontender, nondistended, positive bowel sounds. Extremities: There is no edema no calf tenderness DP +2 bilaterally. Neurologic examination: Patient is awake alert and oriented X 3, cranial nerves II-12 appear grossly intact, muscle power were 5 out of 5 in upper extremities and 5 out of 5 in bilateral lower extremities, deep tendon reflexes normal bilaterally. ASSESSMENT AND PLAN: 1. COVID-19 infection. Start the patient on droplet precautions, continue patient on dexamethasone 6 mg IV push every 24 hours, continue oxygen support as needed, continue vitamin D3 2000 units once every day, vitamin C 500 mg once every day, 650 mg once every day, primary consultation with Dr. Cantu. 2. Myocardial injury with type II ID due to COVID-19 infection without evidence of non-ST elevation ID. Continue heparin drip, continue patient on his cardiac medications. He is status post 1 dose of IV Lasix. 3. History of CAD post-PCI of the LAD and RCA. Last heart catheterization November 2019 showed stable disease. Continue aspirin 81 mg once every day, Lipitor 80 mg once every day, lisinopril 10 mg every day, isosorbide 20 mg orally twice every day, consider adding Ranexa 500 mg orally twice every day. 4. Hypertension and hypertensive cardiovascular disease. Continue lisinopril 10 mg orally once every day. 5. Sinus bradycardia with significant first-degree AV block. Monitor the patient overnight. 6. Hyperlipidemia. Continue Lipitor 80 mg once every day, keep LDL cholesterol 55-70. 7. Enlarged prostate continue Flomax 0.4 mg once every day. 8. 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 Continue with physical therapy as needed. 9. Chronic diastolic heart failure. Continue patient on lisinopril 10 mg orally once every day, continue with Lasix 40 mg orally once every day Tuesday along with potassium supplements. 10. DVT prophylaxis. Lovenox 40 mg subcutaneously every 24 hours as well as bilateral knee-high JENNIFER hose. 11. GI prophylaxis. Continue Protonix 40 mg orally once every day. 12. Patient is full code. Impression and plan of care have been directed as dictated by the signing physician. Ingrid Benitez nurse practitioner acting as scribe for signing physician. Objective - Vital Signs Vital signs: Vital Signs Temp 99.1 F 06/12/23 10:43 Pulse 57 L 06/13/23 04:00 Resp 18 06/13/23 04:00 BP 136/82 06/13/23 04:00 Pulse Ox 96 06/13/23 02:00 FiO2 - Labs CBC & Chem 7: 06/13/23 08:40 06/11/23 17:26 Labs: Abnormal Lab Results - Last 24 Hours (Table) 06/12/23 06/12/23 06/12/23 Range/Units 13:17 13:17 18:20 RBC 4.00 L (4.30-5.90) m/uL APTT 49.7 H 133.5 H* (22.0-30.0) sec
--- NOTE | 2023-06-13 13:36 | P.PN ---
Subjective Progress Note Date: 06/13/23 88-year-old male with past medical history of CAD status post PCI to LAD, RCA, history of hypertension, dyslipidemia, BPH, known to Dr. Myers. His last heart catheterization was in May 2022 intermediate lesion in LAD ifr positive requiring PCI. He had moderate in-stent stenosis in RCA and moderate disease in LCx He was brought to the hospital because of worsening generalized weakness, resulting in a mechanical fall along with worsening shortness of breath. He was tested positive for COVID-19. On admission blood pressure 144/71 pulse 60. Troponin 0.09, 0.1, 0.17 ECG showed sinus rhythm with Q waves in inferior leads consistent of old [place], LVH, IVCD, PVCs Chest x-ray was normal with no signs of primary congestion Hemoglobin 13, BUN 20, creatinine 0.8 Last echo from February 2023 shows moderate LVH, EF 55-50%, moderate aortic stenosis with mean gradient of 20 mmHg 06/13 Patient is seen again today in the emergency center waiting for a bed on the cardiac stepdown unit. Patient denies having any chest pain, no shortness of breath, no cough or wheezing. No nausea vomiting. He does have some lower extremity edema. Blood pressure 136/82, heart rate is in the 50s and 60s, pulse ox 95% on room air. Patient is currently on heparin drip. Echocardiogram is pending. PHYSICAL EXAMINATION Vital signs reviewed. Head: Normocephalic. Eyes: Sclerae nonicteric. Neck: Brisk carotid upstroke, no jugular venous distention. Lungs: Clear to auscultation. Heart: Regular rate and rhythm, S1-S2, no S3, no murmur or rub. Abdomen: Soft nontender, positive bowel sounds no organomegaly. Extremities: 1+ edema, intact distal pulses. Neuro: Alert, oritented, no focal deficits ASSESSMENT NSTEMI Generalized weakness and mechanical fall COVID Positive CAD status post PCI to LAD May 2022. Moderate in-stent stenosis in RCA stent. Moderate LCx disease Moderate LVH [id number] aortic stenosis Frequent Premature ventricular contractions PLAN Continue IV heparin drip for 1 more day Continue Aspirin 81 mg, atorvastatin Obtain an echocardiogram Beta shayy was not started due to low resting heart rate in 50s to 60s 1 dose of IV Lasix 40 mg Reevaluate the need of beta shayy tomorrow Repeat lab work Nurse practitioner note has been reviewed, I agree with the documented findings and plan of care. Patient was seen and examined. Objective - Vital Signs Vital signs: Vital Signs Temp 99.1 F 06/12/23 10:43 Pulse 57 L 06/13/23 04:00 Resp 18 06/13/23 04:00 BP 136/82 06/13/23 04:00 Pulse Ox 96 06/13/23 02:00 FiO2 - Labs CBC & Chem 7: 06/13/23 08:40 06/11/23 17:26 Labs: Abnormal Lab Results - Last 24 Hours (Table) 06/12/23 06/12/23 06/12/23 Range/Units 13:17 13:17 18:20 RBC 4.00 L (4.30-5.90) m/uL APTT 49.7 H 133.5 H* (22.0-30.0) sec
[2023-06-14] MEDS: SODIUM CHLORIDE 0.9% 1,000 ML IV SCH (00:31)
[2023-06-14] MEDS ORDERED: ALPRAZolam 0.25 MG TAB PO STA (01:52)
--- NOTE | 2023-06-14 03:51 | XR ---
EXAM: XR Chest, 1 View CLINICAL HISTORY: ITS.REASON XR Reason: Dyspnea TECHNIQUE: Frontal view of the chest. COMPARISON: No relevant prior studies available. FINDINGS: Lungs: No consolidation or mass. Pleural space: No acute findings Heart: Mild cardiomegaly. Bones/joints: No acute findings. IMPRESSION: No acute cardiopulmonary process.
[2023-06-14] MEDS: PANTOPRAZOLE 40 MG TABLET PO SCH (06:36)
[2023-06-14] MEDS: ALBUTEROL HFA INHALER INHALATION SCH ×4 (09:05→20:59)
[2023-06-14] MEDS: ZINC SULFATE 220 MG CAP PO SCH (09:28)
[2023-06-14] MEDS: DEXAMETHASONE SOD PHOSPHATE 10 MG/ML 1 ML VIAL IVP SCH (09:28)
[2023-06-14] MEDS: lisinopriL 10 MG TAB PO SCH (09:28)
[2023-06-14] MEDS: ASPIRIN 81 MG PO SCH (09:28)
[2023-06-14] MEDS: FINASTERIDE 5 MG TAB PO SCH (09:29)
[2023-06-14] MEDS: ATORVASTATIN 80 MG TAB PO SCH (09:29)
[2023-06-14] MEDS: ISOSORBIDE MONONITRATE 20 MG TAB PO SCH ×2 (09:29→20:10)
[2023-06-14] MEDS: PROPRANOLOL 10 MG TAB PO SCH (09:29)
[2023-06-14] MEDS: ASCORBIC ACID 500 MG TAB PO SCH ×2 (09:29→20:10)
[2023-06-14] MEDS: TAMSULOSIN 0.4 MG CAP.ER.24H PO SCH (09:29)
[2023-06-14] MEDS: CHOLECALCIFEROL 25 MCG (1000 IU) TABLET PO SCH (09:32)
--- NOTE | 2023-06-14 09:42 | P.PN ---
Subjective Progress Note Date: 06/14/23 88-year-old male, seen in the emergency department, room 2. The patient was evaluated, on June 11, for complaints of generalized weakness, and mild shortness of breath. He apparently was feeling weak, and, fell, injuring his elbow. He apparently did not hit his head, and apparently did not have loss of consciousness. Apparently his was positive for coronavirus. He also tested positive. The patient does admit to some mild shortness of breath, cough and congestion. The patient appears not to have any respiratory distress at this time. The patient was on 2 L of oxygen. His troponins were elevated, and for that reason, he was on IV heparin. White count 8.8, hemoglobin 13.5, hematocrit 40, and platelet count 150,000. PTT is 116.2. Sodium 137, potassium 4, chlorides 108, CO2 18, BUN 20, and creatinine 0.83. Glucose 127. Troponins were 0.099, 0.108, and 0.174. He was negative for influenza A and influenza B, and respiratory syncytial virus. He did test positive for coronavirus. The patient's chest x-ray was normal without any acute infiltrate. On today's evaluation of 06/13/2023, I'm seeing the patient for a follow-up. He is currently on room and oxygen. No major respiratory difficulties. The patient was tested positive for Covid 19. He has received previous vaccination. No major respiratory distress at this point in time.The physical is at 12.9 with a hemoglobin of 14, coagulation profile is normal and the patient is currently off the IV heparin as the PTT is quite elevated. Troponins are 0.12 respectively. History of any chest pain. On 06/14/2023, the patient remains on room air oxygen. I had a discussion with the nursing staff and I was told that he was having some symptoms suggestive of sundowner. Otherwise, he is stable. Extremities. No focal neurological deficits. He has a Covid 19 infection. His blood work from 06/13/2023 was noted. His magnesium level is at 1.8. Rest of the CBC is essentially within normal limits. He did have some mild elevation of troponin with a peak troponin level of 0.174. He was seen by cardiology and he was kept on IV heparin for another 24 hours. He was told to have a type II myocardial injury due to Covid 19 infection without evidence of any ST segment changes. He was also given a dose of Lasix yesterday. Is known to have coronary artery disease with previous PCI to LAD and RCA. His last cardiac catheterization was noted. 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 His other comorbidities include hypertension, hyperlipidemia, BPH, diastolic heart failure and degenerative cervical disc disease. His repeat chest x-ray from today is showing no acute abnormalities. Instruments and platelets are seen in his cervical spine and the lower thoracic upper lumbar spine. Objective - Vital Signs Vital signs: Vital Signs Temp 97.9 F 06/14/23 00:00 Pulse 63 06/14/23 08:00 Resp 16 06/14/23 08:00 BP 112/73 06/14/23 08:00 Pulse Ox 98 06/14/23 08:00 FiO2 Intake & Output 06/13/23 06/14/23 06/14/23 18:59 06:59 18:59 Intake Total 353.098 Output Total 200 700 Balance 153.098 -700 Intake: Intake, IV Titration 173.098 Amount Heparin Sod,Pork in 0.45% 173.098 NaCl 25,000 unit In 0.45 % NaCl 1 250ml.bag @ 12 UNITS/KG/HR 8.709 mls/hr IV .Q24H [facility] Rx#: [id number] Oral 180 Output: Urine 200 700 Other: Voiding Method External Catheter External Catheter - Exam No acute distress, oriented 3. No respiratory distress. Currently on RA HEENT examination is grossly unremarkable. Mucous membranes are moist. No oral lesions. Neck supple. Full range of motion. No adenopathy thyromegaly or neck vein dist ention. Cardiovascular examination reveals regular rhythm rate. S1-S2 normal. No S3 or S4. No discernible murmur noted. Heart sounds are distant. Heart rate 52 bpm. Lungs reveal mostly clear breath sounds. Minimal scattered rhonchi. No wheezes or crackles. Breath sounds equal. Abdomen soft bowel sounds are heard. No masses or tenderness. Extremities are intact. No cyanosis clubbing or edema. Skin is without rash or lesion. Neurologic examination is brief but nonfocal. - Labs CBC & Chem 7: 06/13/23 08:40 06/11/23 17:26 Labs: Abnormal Lab Results - Last 24 Hours (Table) 06/13/23 Range/Units 17:38 APTT 56.1 H (22.0-30.0) sec Assessment and Plan Plan: Acute coronavirus infection, without coronavirus associated pneumonia. The patient is currently on room air oxygen. Chest x-ray showed no clear evidence of any pneumonia. The chest x-ray from 2 days. The patient has no issues with oxygenation and the patient is on room air oxygen. No signs of any respiratory insufficiency at this point in time. The patient is on Decadron 6 mg IV every 24 hours. Acute non-ST segment elevation myocardial infarction. This is thought to be related to type II coronary ischemia and the patient remains on IV heparin this will be kept for another 24 hours Coronary artery disease, S/P stent placement. Previous cardiac catheterization from May 2022 showed that the patient has undergone PCI to LAD and he has a moderate in-stent stenosis of the RCA stent a moderate circumflex disease. History of myocardial infarction. History of hyperlipidemia. History of hypertension. History of osteoarthritis. History of pneumonia. Prior history of tobacco use. Plan: Continue IV heparin per cardiology consultation Patient is currently on room air oxygen. The chest x-ray shows no acute consolidation or airspace disease, repeat chest x-ray was also clear Echocardiogram from 03/05/2023 showed a preserved LV function with an ejection fraction of 55-60% IV fluids to KVO Continue multiple vitamin supplements We'll continue to follow
--- NOTE | 2023-06-14 09:54 | CA ---
Transthoracic Echo Report Name: Ruiz Bright Age: 88 Gender: M : 1935 Exam Date: 06/13/2023 10:49 Exam Location: [facility] Ht (in): 69 Wt (lb): 160 Ordering Physician: Carmelo Jerez MD ([id number]) Attending/Referring Phys: Handkerchief Folder Randell Edouard Procedure CPT: Indications: nstemi Cardiac Hx: Technical Quality: Fair Contrast 1: Total Dose (mL): Contrast 2: Total Dose (mL): MEASUREMENTS (Male / Female) Normal Values 2D ECHO LV Diastolic Diameter PLAX 4.7 cm 4.2 - 5.9 / 3.9 - 5.3 cm LV Systolic Diameter PLAX 3.8 cm IVS Diastolic Thickness 1.2 cm 0.6 - 1.0 / 0.6 - 0.9 cm LVPW Diastolic Thickness 1.4 cm 0.6 - 1.0 / 0.6 - 0.9 cm LV Relative Wall Thickness 0.6 RV Internal Dim ED PLAX 2.9 cm LVOT Diameter 2.3 cm Aortic Root Diameter 3.2 cm LA Systolic Diameter LX 2.5 cm 3.0 - 4.0 / 2.7 - 3.8 cm LV Diastolic Volume MOD BP 50.4 cm??? 67 - 155 / 56 - 104 cm??? LV Systolic Volume MOD BP 18.5 cm??? 22 - 58 / 19 - 49 cm??? LV Ejection Fraction MOD BP 63.3 % >= 55 % LV Cardiac Index MOD BP 1202.5 cm???/min???m??? LV Diastolic Volume MOD 4C 61.2 cm??? LV Systolic Volume MOD 4C 16.7 cm??? LV Ejection Fraction MOD 4C 72.7 % LV Cardiac Index MOD 4C 1676.1 cm???/min???m??? LV Diastolic Length 4C 6.9 cm LV Systolic Length 4C 6.0 cm LV Diastolic Volume MOD 2C 39.7 cm??? LV Systolic Volume MOD 2C 20.4 cm??? LV Ejection Fraction MOD 2C 48.6 % LV Cardiac Index MOD 2C 727.1 cm???/min???m??? LV Diastolic Length 2C 6.6 cm LV Systolic Length 2C 6.1 cm Ascending Aorta Diameter 3.0 cm DOPPLER AV Peak Velocity 238.4 cm/s AV Peak Gradient 22.7 mmHg AI Peak Velocity 210.1 cm/s AI Peak Gradient 17.7 mmHg AI Pressure Half Time 527.2 ms LVOT Peak Velocity 72.0 cm/s LVOT Peak Gradient 2.1 mmHg LVOT Velocity Time Integral 20.6 cm LVOT Stroke Volume 84.9 cm??? LVOT Stroke Volume Index 45.2 ml/m??? LVOT Cardiac Index 3200.0 cm???/min???m??? AV Area Cont Eq pk 1.2 cm??? MV Peak Velocity 192.4 cm/s MV Peak Gradient 14.8 mmHg MV Mean Velocity 88.4 cm/s MV Mean Gradient 4.1 mmHg MV Velocity Time Integral 47.7 cm MR Peak Velocity 250.1 cm/s MR Peak Gradient 25.0 mmHg Mitral E Point Velocity 83.4 cm/s Mitral A Point Velocity 157.8 cm/s Mitral E to A Ratio 0.5 MV Deceleration Time 293.3 ms TR Peak Velocity 168.5 cm/s TR Peak Gradient 11.4 mmHg Right Ventricular Systolic Press 17.2 mmHg PV Peak Velocity 117.2 cm/s PV Peak Gradient 5.5 mmHg FINDINGS Left Ventricle Mild to moderate concentric LVH. Normal LV size. Left ventricular ejection fraction is estimated at 55-60 %. Right Ventricle Normal right ventricular size. Right Atrium Normal right atrial size. Left Atrium Mild left atrial dilatation. Mitral Valve Mitral valve not well visualized. Trace MR. Aortic Valve Mild to moderate AV calcification. AV peak gradient= 23mmHg. AV area by cont. eq= 1.2cm2. Mild AI. Tricuspid Valve Structurally normal tricuspid valve. Mild TR. Pulmonic Valve Structurally normal pulmonic valve. Trace PI. Pericardium Not well visualized. Aorta Normal size aortic root and proximal ascending aorta. CONCLUSIONS Normal LV systolic function Mild aortic stenosis and mild aortic regurgitation. Sclerotic aortic valve Previewed by: Dr. Baron Peñaloza MD (Electronically Signed) Final Date: 14 June 2023 09:53
[2023-06-14 10:23] LABS: Basophils % (A) 0 %; Eosinophils % (A) 0 %; HCT 44.9 % (39.0-53.0); Lymphocytes # (A) 3.6 k/uL (1.0-4.8); Lymphocytes % (A) 21 %; MCH 32.6 pg (25.0-35.0); MCHC 33.4 g/dL (31.0-37.0); MCV 97.4 fL (80.0-100.0); Mean Platelet Volume 7.9; Monocytes # (A) 0.9 k/uL (0-1.0); Monocytes % (A) 5 %; Neutrophils # (A) 12.3 k/uL (1.3-7.7); Neutrophils % (A) 72 %; Platelet Count 232 k/uL (150-450); RBC 4.61 m/uL (4.30-5.90)
[2023-06-14 10:48] LABS: African American GFR (CKD) 81 (>60 ml/min/1.73 sqM); Anion Gap 13 mmol/L; Blood Urea Nitrogen 32 mg/dL (9-20); Calcium 8.5 mg/dL (8.4-10.2); Carbon Dioxide 15 mmol/L (22-30); Chloride 106 mmol/L (98-107); Glucose 135 mg/dL (74-99); Non-African American GFR(CKD) 70 (>60 ml/min/1.73 sqM); Sodium 134 mmol/L (137-145)
[2023-06-14 10:59] LABS: Potassium 3.8 mmol/L (3.5-5.1)
--- NOTE | 2023-06-14 15:11 | P.PN ---
Subjective Progress Note Date: 06/14/23 88-year-old male with past medical history of CAD status post PCI to LAD, RCA, history of hypertension, dyslipidemia, BPH, known to Dr. Myers. His last heart catheterization was in May 2022 intermediate lesion in LAD ifr positive requiring PCI. He had moderate in-stent stenosis in RCA and moderate disease in LCx He was brought to the hospital because of worsening generalized weakness, resulting in a mechanical fall along with worsening shortness of breath. He was tested positive for COVID-19. On admission blood pressure 144/71 pulse 60. Troponin 0.09, 0.1, 0.17 ECG showed sinus rhythm with Q waves in inferior leads consistent of old [place], LVH, IVCD, PVCs Chest x-ray was normal with no signs of primary congestion Hemoglobin 13, BUN 20, creatinine 0.8 Last echo from February 2023 shows moderate LVH, EF 55-50%, moderate aortic stenosis with mean gradient of 20 mmHg 06/13 Patient is seen again today in the emergency center waiting for a bed on the cardiac stepdown unit. Patient denies having any chest pain, no shortness of breath, no cough or wheezing. No nausea vomiting. He does have some lower extremity edema. Blood pressure 136/82, heart rate is in the 50s and 60s, pulse ox 95% on room air. Patient is currently on heparin drip. Echocardiogram is pending. 06/14 Patient is seen today on the CSD unit. He states his breathing status is improving, no chest pain, no cough. He states he is feeling pretty well right now. He has been on heparin drip which we will discontinue today. Patient has been afebrile greater than 24 hours, heart rate in the 50s and 60s, blood pressure 119/58, pulse ox 95% on room air. Repeat blood work reveals WBC 17, hemoglobin 15, sodium 134, potassium 3.8, BUN 32 creatinine 0.98. Echocardiogram reveals normal LV function. Mild aortic stenosis and mild aortic regurgitation. Sclerotic aortic valve. PHYSICAL EXAMINATION Vital signs reviewed. Head: Normocephalic. Eyes: Sclerae nonicteric. Neck: Brisk carotid upstroke, no jugular venous distention. Lungs: Clear to auscultation. Heart: Regular rate and rhythm, S1-S2, no S3, no murmur or rub. Abdomen: Soft nontender, positive bowel sounds no organomegaly. Extremities: 1+ edema, intact distal pulses. Neuro: Alert, oritented, no focal deficits ASSESSMENT NSTEMI Generalized weakness and mechanical fall COVID Positive CAD status post PCI to LAD May 2022. Moderate in-stent stenosis in RCA stent. Moderate LCx disease Moderate LVH Wcda-[id number] aortic stenosis Frequent Premature ventricular contractions PLAN Discontinue IV heparin Continue Aspirin 81 mg, atorvastatin, Imdur, lisinopril, Inderal Repeat lab work Nurse practitioner note has been reviewed, I agree with the documented findings and plan of care. Patient was seen and examined. Objective - Vital Signs Vital signs: Vital Signs Temp 97.9 F 06/14/23 00:00 Pulse 63 06/14/23 08:00 Resp 16 06/14/23 08:00 BP 112/73 06/14/23 08:00 Pulse Ox 98 06/14/23 08:00 FiO2 Intake & Output 06/13/23 06/14/23 06/14/23 18:59 06:59 18:59 Intake Total 353.098 Output Total 200 700 Balance 153.098 -700 Intake: Intake, IV Titration 173.098 Amount Heparin Sod,Pork in 0.45% 173.098 NaCl 25,000 unit In 0.45 % NaCl 1 250ml.bag @ 12 UNITS/KG/HR 8.709 mls/hr IV .Q24H [facility] Rx#: [id number] Oral 180 Output: Urine 200 700 Other: Voiding Method External Catheter External Catheter External Catheter - Labs CBC & Chem 7: 06/14/23 09:11 06/14/23 09:11 Labs: Abnormal Lab Results - Last 24 Hours (Table) 06/13/23 06/14/23 06/14/23 Range/Units 17:38 09:11 09:11 WBC 17.0 H (3.8-10.6) k/uL Neutrophils # 12.3 H (1.3-7.7) k/uL APTT 56.1 H (22.0-30.0) sec Sodium 134 L (137-145) mmol/L Carbon Dioxide 15 L (22-30) mmol/L BUN 32 H (9-20) mg/dL Glucose 135 H (74-99) mg/dL 06/14/23 Range/Units 09:11 WBC (3.8-10.6) k/uL Neutrophils # (1.3-7.7) k/uL APTT 70.3 H (22.0-30.0) sec Sodium (137-145) mmol/L Carbon Dioxide (22-30) mmol/L BUN (9-20) mg/dL Glucose (74-99) mg/dL
[2023-06-15] MEDS: PANTOPRAZOLE 40 MG TABLET PO SCH (06:30)
[2023-06-15] MEDS: ALBUTEROL HFA INHALER INHALATION SCH ×4 (09:02→21:38)
[2023-06-15] MEDS: CHOLECALCIFEROL 25 MCG (1000 IU) TABLET PO SCH (09:20)
[2023-06-15] MEDS: DEXAMETHASONE SOD PHOSPHATE 10 MG/ML 1 ML VIAL IVP SCH (09:20)
[2023-06-15] MEDS: PROPRANOLOL 10 MG TAB PO SCH (09:20)
[2023-06-15] MEDS: ZINC SULFATE 220 MG CAP PO SCH (09:20)
[2023-06-15] MEDS: lisinopriL 10 MG TAB PO SCH (09:20)
[2023-06-15] MEDS: ISOSORBIDE MONONITRATE 20 MG TAB PO SCH ×2 (09:20→20:57)
[2023-06-15] MEDS: ASPIRIN 81 MG PO SCH (09:20)
[2023-06-15] MEDS: TAMSULOSIN 0.4 MG CAP.ER.24H PO SCH (09:20)
[2023-06-15] MEDS: ASCORBIC ACID 500 MG TAB PO SCH ×2 (09:21→20:57)
[2023-06-15] MEDS: FINASTERIDE 5 MG TAB PO SCH (09:21)
[2023-06-15] MEDS: ATORVASTATIN 80 MG TAB PO SCH (09:21)
[2023-06-15] MEDS: ENOXAPARIN 40 MG/0.4 ML SYRINGE SQ SCH (09:21)
--- NOTE | 2023-06-15 09:59 | P.PN ---
Subjective Progress Note Date: 06/14/23 HISTORY OF PRESENT ILLNESS: This is an 88-year-old male patient of eduardo and Dr. Myers with a past medical history coronary artery disease status post PCI of the LAD and RCA, history of hypertension, hyperlipidemia BPH, neck and back surgeries for degenerative arthritis, patient was hospitalized at [facility] in 05/31/2023 and he was found to have a significant stenosis of the proximal LAD after heart cath physician that was done by Dr. Quintana, he underwent left heart catheterization with PCI of the proximal LAD using a size stents, and he did have a balloon angioplasty for dilatation as well, patient has done well over the last few months, patient presented to the emergency department at [facility] last night because of generalized fatigue and weakness and not able to do anything, unfortunately his who is the primary caregiver for him was diagnosed with covert and she has been in bed due to her illness, so he was brought to the ER for evaluation, he was tested positive for COVID-19, and the patient was found to have a slight elevation of the troponin I suggestive of a type II NC without evidence of non-ST elevation NC, and because of the presentat ion he was admitted to the hospital will be seen in consultation by pulmonary and cardiology, patient was started initially on heparin drip, therefore this will be discontinued and he will be placed on Lovenox 40 mg subcutaneously every 24 hours for DVT prophylaxis, patient will be maintained on vitamin D3 1000 unit once every day, vitamin C 500 mg orally once every day, and zinc 50 minute gram orally once every day, I will start the patient on dexamethasone 6 mg IV push every 24 hours. 06/13: Patient has been transferred up to the cardiac stepdown unit. He has been seen by cardiology while in the emergency center this morning for recheck and advised to continue heparin drip for 1 more day, 1 dose of IV Lasix 40 mg given an echocardiogram is pending. Patient is currently denying having any chest pain or shortness of breath. No cough or wheezing. No nausea or vomiting. Patient has been afebrile, heart rate in the 50s and 60s, blood pressure 136/82, pulse ox 95% on room air. 06/14: Patient believes his breathing status is improving. He denies having any cough no chest pain. He has been on a heparin drip and cardiology discontinue that today. Patient remains afebrile, heart rate in the 50s and 60s, blood pressure 119/58, pulse ox 95% on room air. Repeat blood work reveals WBC 17, hemoglobin 15, sodium 134, potassium 3.8, BUN 32 creatinine 0.98. Echocardiogram reveals normal LV function. Mild aortic stenosis and mild aortic regurgitation. Sclerotic aortic valve. Cardiology is recommending continuing aspirin 81 mg, statin, Imdur lisinopril and Inderal. Patient is also followed by pulmonary medicine. Anticipate probable discharge home tomorrow. Social work is following for discharge planning. REVIEW OF SYSTEMS: Constitutional: No documented fever, no chills, no night sweats. No weight change. positive for weakness, fatigue or lethargy. No daytime sleepiness. HEENT: No headache. No blurred vision or double vision, no loss of vision. No loss of Hearing, no ringing in the ears, no dizziness. No nasal drainage or congestion. No epistaxis. No sore throat. Lungs: Positive for shortness of breath, no cough, no sputum production. No wheezing. Reports dyspnea with activity. Cardiovascular: No chest pain, no lower extremity edema. No palpitations. No paroxysmal nocturnal dyspnea. No orthopnea. No lightheadedness or dizziness. No syncopal episodes. Abdominal: Reports no abdominal pain. No nausea, vomiting. No diarrhea. No constipation. No bloody or tarry stools reports loss of appetite. Genitourinary: No dysuria, increased frequency, urgency. No urinary retention. Musculoskeletal: No myalgias. No muscle weakness,positive for gait dysfunction, positive for frequent falls, positive for back pain, and neck pain. Integumentary: No wounds, no lesions. No rash or pruritus. No unusual bruising. No change in hair or nails. Neurologic: No aphasia. No facial droop. No change in mentation. No head injury. No headache. No paralysis. No paresthesia. Psychiatric: positive for depression. No anxiety. positive for mood swings. Endocrine: No abnormal blood sugars. No weight change. PHYSICAL EXAMINATION: General: 88-year-old male lying down in bed in no apparent distress. HEENT: Head is atraumatic, normocephalic, pupils were equal round reactive to light and recommendation, extraocular muscle movement were intact, sclera nonicteric, conjunctivae were pale, mucous membranes of the mouth are somewhat dry. Neck: Supple, no JVP, normal carotid upstroke bilaterally, no lymphadenopathy. Chest: Decreased breath sounds at the bases, few rhonchi, no extremity wheezes, no chest wall tenderness, no intercostal retractions. Heart: First heart sound is normal, second heart sounds normal there is systolic ejection murmur 2/6 located in the left sternal border. Abdomen: Soft, nontender, nondistended, positive bowel sounds. Extremities: There is no edema no calf tenderness DP +2 bilaterally. Neurologic examination: Patient is awake alert and oriented X 3, cranial nerves II-12 appear grossly intact, muscle power were 5 out of 5 in upper extremities and 5 out of 5 in bilateral lower extremities, deep tendon reflexes normal bilaterally. ASSESSMENT AND PLAN: 1. COVID-19 infection. Start the patient on droplet precautions, continue patient on dexamethasone 6 mg IV push every 24 hours, continue oxygen support as needed, continue vitamin D3 2000 units once every day, vitamin C 500 mg once every day, 650 mg once every day, primary consultation with Dr. Cantu. 2. Myocardial injury with type II NC due to COVID-19 infection without evidence of non-ST elevation NC. Continue heparin drip, continue patient on his cardiac medications. He is status post 1 dose of IV Lasix. 3. History of CAD post-PCI of the LAD and RCA. Last heart catheterization November 2019 showed stable disease. Continue aspirin 81 mg once every day, Lipitor 80 mg once every day, lisinopril 10 mg every day, isosorbide 20 mg orally twice every day, consider adding Ranexa 500 mg orally twice every day. 4. Hypertension and hypertensive cardiovascular disease. Continue lisinopril 10 mg orally once every day. 5. Sinus bradycardia with significant first-degree AV block. Monitor the patient overnight. 6. Hyperlipidemia. Continue Lipitor 80 mg once every day, keep LDL cholesterol 55-70. 7. Enlarged prostate continue Flomax 0.4 mg once every day. 8. 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 Continue with physical therapy as needed. 9. Chronic diastolic heart failure. Continue patient on lisinopril 10 mg orally once every day, continue with Lasix 40 mg orally once every day Tuesday along with potassium supplements. 10. DVT prophylaxis. Lovenox 40 mg subcutaneously every 24 hours as well as bilateral knee-high JENNIFER hose. 11. GI prophylaxis. Continue Protonix 40 mg orally once every day. 12. Patient is full code. Impression and plan of care have been directed as dictated by the signing ph ysician. Ingrid Benitez nurse practitioner acting as scribe for signing physician. Objective - Vital Signs Vital signs: Vital Signs Temp 97.9 F 06/14/23 00:00 Pulse 55 L 06/14/23 12:00 Resp 16 06/14/23 12:00 BP 119/58 06/14/23 12:00 Pulse Ox 95 06/14/23 12:00 FiO2 Intake & Output 06/13/23 06/14/23 06/14/23 18:59 06:59 18:59 Intake Total 353.098 118 Output Total 200 700 500 Balance 153.098 -700 -382 Intake: Intake, IV Titration 173.098 Amount Heparin Sod,Pork in 0.45% 173.098 NaCl 25,000 unit In 0.45 % NaCl 1 250ml.bag @ 12 UNITS/KG/HR 8.709 mls/hr IV .Q24H [facility] Rx#: [id number] Oral 180 118 Output: Urine 200 700 500 Other: Voiding Method External Catheter External Catheter External Catheter # Bowel Movements 1 - Labs CBC & Chem 7: 06/14/23 09:11 06/14/23 09:11 Labs: Abnormal Lab Results - Last 24 Hours (Table) 06/13/23 06/14/23 06/14/23 Range/Units 17:38 09:11 09:11 WBC 17.0 H (3.8-10.6) k/uL Neutrophils # 12.3 H (1.3-7.7) k/uL APTT 56.1 H (22.0-30.0) sec Sodium 134 L (137-145) mmol/L Carbon Dioxide 15 L (22-30) mmol/L BUN 32 H (9-20) mg/dL Glucose 135 H (74-99) mg/dL 06/14/23 Range/Units 09:11 WBC (3.8-10.6) k/uL Neutrophils # (1.3-7.7) k/uL APTT 70.3 H (22.0-30.0) sec Sodium (137-145) mmol/L Carbon Dioxide (22-30) mmol/L BUN (9-20) mg/dL Glucose (74-99) mg/dL
--- NOTE | 2023-06-15 10:10 | P.DS ---
Providers Date of admission: 06/13/23 10:21 Expected date of discharge: 06/17/23 Attending physician: Nayeli Michel Consults: 06/11/23 20:26 Consult Physician Urgent Consulting Provider: Doni Smith Consult Reason/Comments: covid-19 Do you want consulting provider notified?: Yes Consult Physician Urgent Consulting Provider: [facility] Consult Reason/Comments: elevated troponin Do you want consulting provider notified?: Yes Primary care physician: Nayeli Michel Hospital Course: HISTORY OF PRESENT ILLNESS: This is an 88-year-old male patient of eduardo and Dr. Myers with a past medical history coronary artery disease status post PCI of the LAD and RCA, history of hypertension, hyperlipidemia BPH, neck and back surgeries for degenerative arthritis, patient was hospitalized at [facility] in 05/31/2023 and he was found to have a significant stenosis of the proximal LAD after heart cath physician that was done by Dr. Quintana, he underwent left heart catheterization with PCI of the proximal LAD using a size stents, and he did have a balloon angioplasty for dilatation as well, patient has done well over the last few months, patient presented to the emergency department at [facility] last night because of generalized fatigue and weakness and not able to do anything, unfortunately his who is the primary caregiver for him was diagnosed with covert and she has been in bed due to her illness, so he was brought to the ER for evaluation, he was tested positive for COVID-19, and the patient was found to have a slight elevation of the troponin I suggestive of a type II NV without evidence of non-ST elevation NV, and because of the presentation he was admitted to the hospital will be seen in consultation by pulmonary and cardiology, patient was started initially on heparin drip, therefore this will be discontinued and he will be placed on Lovenox 40 mg subcutaneously every 24 hours for DVT prophylaxis, patient will be maintained on vitamin D3 1000 unit once every day, vitamin C 500 mg orally once every day, and zinc 50 minute gram orally once every day, I will start the patient on dexamethasone 6 mg IV push every 24 hours. 06/13: Patient has been transferred up to the cardiac stepdown unit. He has been seen by cardiology while in the emergency center this morning for recheck and advised to continue heparin drip for 1 more day, 1 dose of IV Lasix 40 mg given an echocardiogram is pending. Patient is currently denying having any chest pain or shortness of breath. No cough or wheezing. No nausea or vomiting. Patient has been afebrile, heart rate in the 50s and 60s, blood pressure 136/82, pulse ox 95% on room air. 06/14: Patient believes his breathing status is improving. He denies having any cough no chest pain. He has been on a heparin drip and cardiology discontinue that today. Patient remains afebrile, heart rate in the 50s and 60s, blood pressure 119/58, pulse ox 95% on room air. Repeat blood work reveals WBC 17, hemoglobin 15, sodium 134, potassium 3.8, BUN 32 creatinine 0.98. Echocardiogram reveals normal LV function. Mild aortic stenosis and mild aortic regurgitation. Sclerotic aortic valve. Cardiology is recommending continuing aspirin 81 mg, statin, Imdur lisinopril and Inderal. Patient is also followed by pulmonary medicine. Anticipate probable discharge home tomorrow. Social work is following for discharge planning. 06/15: Patient complains of cough. No chest pain. No shortness of breath. He has been afebrile. Blood pressure 114/56, heart rate 53, pulse ox 96% on room air. Repeat blood work reveals hemoglobin 13.5, WBC 13.5. Sodium 136, potassium 3.7, BUN 35 creatinine 0.94. Blood sugar 178. Has been seen by cardiology and cleared for discharge. Patient has also been seen by Dr. Soria this morning and cleared for discharge. A PT OT consult have been added and there is concern about him going home and being safe. membership sales manager is working on discharge planning. Patient is to follow up with Dr. Myers in 2-3 weeks. We will plan to transfer the patient to [facility] until discharge plan is completed. 06/16: Patient worked with physical therapy this morning and already has some improvement of his strength. He is still at risk for fall if he were discharged home. He continues to have balance issues as well and strength issues. Patient has been afebrile, heart rate 65, blood pressure 165/72, pulse ox 96% on room air. Blood glucose running between 130s and 153. Patient remains on IV dexamethasone which will decrease to 4 mg. He is also on the vitamin cocktail. Discharge planning is for subacute rehab and patient may be expected at [facility] and currently we are waiting for insurance authorization. Patient may be transf erred to [facility] floor once bed is available. 06/17: No new concerns today from the patient. He is working with physical therapy and waiting for insurance authorization for subacute rehab. [facility] plan will be to return home. Patient has been afebrile, heart rate in the 50s and 60s, blood pressure 128/64, pulse ox 90% on room air. WBC 12.7, hemoglobin 14, electrolytes normal, BUN 42 creatinine 0.98. ALT 51 and otherwise liver function tests are normal. Patient will be discharged to [facility] once insurance authorization has been obtained. DISCHARGE DIAGNOSES: 1. COVID-19 infection. 2. Myocardial injury with type II NV due to COVID-19 infection without evidence of non-ST elevation NV. 3. History of CAD post-PCI of the LAD and RCA. 4. Hypertension and hypertensive cardiovascular disease. 5. Sinus bradycardia with significant first-degree AV block. 6. Hyperlipidemia. 7. Enlarged prostate 8. 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 9. Chronic diastolic heart failure. Discharge plan: Home Greater than 35 minutes was utilized and coordinating patient's discharge. Impression and plan of care have been directed as dictated by the signing physician. Ingrid Benitez nurse practitioner acting as scribe for signing physician. Patient Condition at Discharge: Stable Plan - Discharge Summary Discharge Rx Participant: No New Discharge Prescriptions: New Pantoprazole [Protonix] 40 mg PO -BRKFST #30 tab Cholecalciferol [Vitamin D3 (25 Mcg = 1000 Iu)] 50 mcg PO DAILY tab dexAMETHasone [Decadron] 4 mg PO DAILY #6 tablet Zinc Sulfate [Orazinc] 220 mg PO DAILY cap Ascorbic Acid [Vitamin C] 500 mg PO BID tab Continue Isosorbide Mononitrate [Ismo] 20 mg PO BID Atorvastatin Calcium [Lipitor] 80 mg PO DAILY Finasteride [Proscar] 5 mg PO DAILY Tamsulosin [Flomax] 0.4 mg PO DAILY Clopidogrel [Plavix] 75 mg PO DAILY #90 tab Propranolol [Inderal] 10 mg PO DAILY Aspirin EC [Ecotrin Low Dose] 81 mg PO DAILY lisinopriL [Zestril] 10 mg PO DAILY Discharge Medication List Isosorbide Mononitrate [Ismo] 20 mg PO BID 03/25/14 [History] Atorvastatin Calcium [Lipitor] 80 mg PO DAILY 08/12/18 [History] Finasteride [Proscar] 5 mg PO DAILY 08/12/18 [History] Tamsulosin [Flomax] 0.4 mg PO DAILY 12/07/19 [History] Aspirin EC [Ecotrin Low Dose] 81 mg PO DAILY 06/12/21 [History] Clopidogrel [Plavix] 75 mg PO DAILY #90 tab 06/02/22 [Rx] Propranolol [Inderal] 10 mg PO DAILY 06/11/23 [History] lisinopriL [Zestril] 10 mg PO DAILY 06/11/23 [History] Ascorbic Acid [Vitamin C] 500 mg PO BID tab 06/15/23 [Rx] Cholecalciferol [Vitamin D3 (25 Mcg = 1000 Iu)] 50 mcg PO DAILY tab 06/15/23 [Rx] Pantoprazole [Protonix] 40 mg PO AC-BRKFST #30 tab 06/15/23 [Rx] Zinc Sulfate [Orazinc] 220 mg PO DAILY cap 06/15/23 [Rx] dexAMETHasone [Decadron] 4 mg PO DAILY #6 tablet 06/15/23 [Rx] Follow up Appointment(s)/Referral(s): Hamilton Myers MD [STAFF PHYSICIAN] - 3 Weeks Nayeli Michel MD [Primary Care Provider] - 1 Week (at [facility]) Discharge Disposition: TRANSFER TO SNF/ECF
--- NOTE | 2023-06-15 10:46 | P.PN ---
Subjective Progress Note Date: 06/15/23 88-year-old male, seen in the emergency department, room 2. The patient was evaluated, on June 11, for complaints of generalized weakness, and mild shortness of breath. He apparently was feeling weak, and, fell, injuring his elbow. He apparently did not hit his head, and apparently did not have loss of consciousness. Apparently his was positive for coronavirus. He also tested positive. The patient does admit to some mild shortness of breath, cough and congestion. The patient appears not to have any respiratory distress at this time. The patient was on 2 L of oxygen. His troponins were elevated, and for that reason, he was on IV heparin. White count 8.8, hemoglobin 13.5, hematocrit 40, and platelet count 150,000. PTT is 116.2. Sodium 137, potassium 4, chlorides 108, CO2 18, BUN 20, and creatinine 0.83. Glucose 127. Troponins were 0.099, 0.108, and 0.174. He was negative for influenza A and influenza B, and respiratory syncytial virus. He did test positive for coronavirus. The patient's chest x-ray was normal without any acute infiltrate. On today's evaluation of 06/13/2023, I'm seeing the patient for a follow-up. He is currently on room and oxygen. No major respiratory difficulties. The patient was tested positive for Covid 19. He has received previous vaccination. No major respiratory distress at this point in time.The physical is at 12.9 with a hemoglobin of 14, coagulation profile is normal and the patient is currently off the IV heparin as the PTT is quite elevated. Troponins are 0.12 respectively. History of any chest pain. On 06/14/2023, the patient remains on room air oxygen. I had a discussion with the nursing staff and I was told that he was having some symptoms suggestive of sundowner. Otherwise, he is stable. Extremities. No focal neurological deficits. He has a Covid 19 infection. His blood work from 06/13/2023 was noted. His magnesium level is at 1.8. Rest of the CBC is essentially within normal limits. He did have some mild elevation of troponin with a peak troponin level of 0.174. He was seen by cardiology and he was kept on IV heparin for another 24 hours. He was told to have a type II myocardial injury due to Covid 19 infection without evidence of any ST segment changes. He was also given a dose of Lasix yesterday. Is known to have coronary artery disease with previous PCI to LAD and RCA. His last cardiac catheterization was noted. 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 His other comorbidities include hypertension, hyperlipidemia, BPH, diastolic heart failure and degenerative cervical disc disease. His repeat chest x-ray from today is showing no acute abnormalities. Instruments and platelets are seen in his cervical spine and the lower thoracic upper lumbar spine. On 06/15/2023, no new complaints and the patient is currently on room air oxygen. No significant respiratory difficulties. No cough or sputum production. No other significant events overnight.No new labs are available from today. The patient is currently on Decadron. The patient is on Lovenox for DVT prophylaxis. The patient is currently off IV heparin. He remains on aspirin. Objective - Vital Signs Vital signs: Vital Signs Temp 97.8 F 06/15/23 04:00 Pulse 71 06/15/23 08:00 Resp 16 06/15/23 08:00 BP 155/69 06/15/23 08:00 Pulse Ox 95 06/15/23 08:00 FiO2 Intake & Output 06/14/23 06/15/23 06/15/23 18:59 06:59 18:59 Intake Total 591 790 180 Output Total 500 850 Balance 91 -60 180 Weight 72.575 kg Intake: Oral 591 790 180 Output: Urine 500 850 Other: Voiding Method External Catheter External Catheter # Bowel Movements 1 - Exam No acute distress, oriented 3. No respiratory distress. Currently on RA HEENT examination is grossly unremarkable. Mucous membranes are moist. No oral lesions. Neck supple. Full range of motion. No adenopathy thyromegaly or neck vein distention. Cardiovascular examination reveals regular rhythm rate. S1-S2 normal. No S3 or S4. No discernible murmur noted. Heart sounds are distant. Heart rate 52 bpm. Lungs reveal mostly clear breath sounds. Minimal scattered rhonchi. No wheezes or crackles. Breath sounds equal. Abdomen soft bowel sounds are heard. No masses or tenderness. Extremities are intact. No cyanosis clubbing or edema. Skin is without rash or lesion. Neurologic examination is brief but nonfocal. - Labs CBC & Chem 7: 06/14/23 09:11 06/14/23 09:11 Labs: Abnormal Lab Results - Last 24 Hours (Table) 06/14/23 06/14/23 Range/Units 09:11 09:11 APTT 70.3 H (22.0-30.0) sec Sodium 134 L (137-145) mmol/L Carbon Dioxide 15 L (22-30) mmol/L BUN 32 H (9-20) mg/dL Glucose 135 H (74-99) mg/dL Assessment and Plan Plan: Acute coronavirus infection, without coronavirus associated pneumonia. The patient is currently on room air oxygen. Chest x-ray showed no clear evidence of any pneumonia. The chest x-ray from 2 days. The patient has no issues with oxygenation and the patient is on room air oxygen. No signs of any respiratory insufficiency at this point in time. The patient is on Decadron 6 mg IV every 24 hours. Acute non-ST segment elevation myocardial infarction. This is thought to be related to type II coronary ischemia and the patient remains on IV heparin this will be kept for another 24 hours Coronary artery disease, S/P stent placement. Previous cardiac catheterization from May 2022 showed that the patient has undergone PCI to LAD and he has a moderate in-stent stenosis of the RCA stent a moderate circumflex disease. History of myocardial infarction. History of hyperlipidemia. History of hypertension. History of osteoarthritis. History of pneumonia. Prior history of tobacco use. Plan: Clinically stable and overall respiratory status is stable Patient is currently on room air oxygen. The chest x-ray shows no acute consolidation or airspace disease, repeat chest x-ray was also clear Echocardiogram from 03/05/2023 showed a preserved LV function with an ejection fraction of 55-60% IV fluids to KVO Continue multiple vitamin supplements We'll continue to follow Possible home today to complete a course of a total of 10 day course of Decadron on an outpatient basis. I came to find other the patient is nonambulatory at this point in time. He is extremely weak and he cannot walk. His also has Covid 19. He was initiated discharge planning and see the patient can go back home. If not, he will need an ECF.
[2023-06-15 10:58] LABS: HCT 41.5 % (39.0-53.0); HGB 13.5 gm/dL (13.0-17.5); MCH 32.3 pg (25.0-35.0); MCHC 32.5 g/dL (31.0-37.0); MCV 99.4 fL (80.0-100.0); Mean Platelet Volume 7.5; Platelet Count 219 k/uL (150-450); RBC 4.18 m/uL (4.30-5.90); RDW 12.9 % (11.5-15.5); WBC 13.5 k/uL (3.8-10.6)
[2023-06-15 11:18] LABS: ALT 37 U/L (4-49); AST 43 U/L (17-59); African American GFR (CKD) 85 (>60 ml/min/1.73 sqM); Albumin 2.9 g/dL (3.5-5.0); Alkaline Phosphatase 57 U/L (38-126); Anion Gap 10 mmol/L; Blood Urea Nitrogen 35 mg/dL (9-20); Calcium 8.5 mg/dL (8.4-10.2); Carbon Dioxide 20 mmol/L (22-30); Chloride 106 mmol/L (98-107); Glucose 178 mg/dL (74-99); Non-African American GFR(CKD) 73 (>60 ml/min/1.73 sqM); Potassium 3.7 mmol/L (3.5-5.1); Sodium 136 mmol/L (137-145); Total Protein 5.2 g/dL (6.3-8.2)
[2023-06-15] MEDS ORDERED: DEXTROSE 50% SYRINGE 50 ML IVP PRN ×2 (13:02)
--- NOTE | 2023-06-15 13:04 | P.PN ---
Subjective Progress Note Date: 06/15/23 88-year-old male with past medical history of CAD status post PCI to LAD, RCA, history of hypertension, dyslipidemia, BPH, known to Dr. Myers. His last heart catheterization was in May 2022 intermediate lesion in LAD ifr positive requiring PCI. He had moderate in-stent stenosis in RCA and moderate disease in LCx He was brought to the hospital because of worsening generalized weakness, resulting in a mechanical fall along with worsening shortness of breath. He was tested positive for COVID-19. On admission blood pressure 144/71 pulse 60. Troponin 0.09, 0.1, 0.17 ECG showed sinus rhythm with Q waves in inferior leads consistent of old WI, LVH, IVCD, PVCs Chest x-ray was normal with no signs of primary congestion Hemoglobin 13, BUN 20, creatinine 0.8 Last echo from February 2023 shows moderate LVH, EF 55-50%, moderate aortic stenosis with mean gradient of 20 mmHg 06/13 Patient is seen again today in the emergency center waiting for a bed on the cardiac stepdown unit. Patient denies having any chest pain, no shortness of breath, no cough or wheezing. No nausea vomiting. He does have some lower extremity edema. Blood pressure 136/82, heart rate is in the 50s and 60s, pulse ox 95% on room air. Patient is currently on heparin drip. Echocardiogram is pending. 06/14 Patient is seen today on the CSD unit. He states his breathing status is improving, no chest pain, no cough. He states he is feeling pretty well right now. He has been on heparin drip which we will discontinue today. Patient has been afebrile greater than 24 hours, heart rate in the 50s and 60s, blood pressure 119/58, pulse ox 95% on room air. Repeat blood work reveals WBC 17, hemoglobin 15, sodium 134, potassium 3.8, BUN 32 creatinine 0.98. Echocardiogram reveals normal LV function. Mild aortic stenosis and mild aortic regurgitation. Sclerotic aortic valve. 06/15 Patient complains of cough. No chest pain. No shortness of breath. He has been afebrile. Blood pressure 114/56, heart rate 53, pulse ox 96% on room air. Repeat blood work reveals hemoglobin 13.5, WBC 13.5. Sodium 136, potassium 3.7, BUN 35 creatinine 0.94. Blood sugar 178. PHYSICAL EXAMINATION Vital signs reviewed. Head: Normocephalic. Eyes: Sclerae nonicteric. Neck: Brisk carotid upstroke, no jugular venous distention. Lungs: Clear to auscultation. Heart: Regular rate and rhythm, S1-S2, no S3, no murmur or rub. Abdomen: Soft nontender, positive bowel sounds no organomegaly. Extremities: 1+ edema, intact distal pulses. Neuro: Alert, oritented, no focal deficits ASSESSMENT NSTEMI Generalized weakness and mechanical fall COVID Positive CAD status post PCI to LAD May 2022. Moderate in-stent stenosis in RCA stent. Moderate LCx disease Moderate LVH [id number] aortic stenosis Frequent Premature ventricular contractions PLAN Continue Aspirin 81 mg, atorvastatin, Imdur, lisinopril, Inderal Patient is cleared from cardiology for discharge and a follow-up in the office in 2-[address] Myers. Nurse practitioner note has been reviewed, I agree with the documented findings and plan of care. Patient was seen and examined. Objective - Vital Signs Vital signs: Vital Signs Temp 97.8 F 06/15/23 04:00 Pulse 54 L 06/15/23 04:00 Resp 15 06/15/23 04:00 BP 112/58 06/15/23 04:00 Pulse Ox 96 06/15/23 04:00 FiO2 Intake & Output 06/14/23 06/15/23 06/15/23 18:59 06:59 18:59 Intake Total 591 790 Output Total 500 850 Balance 91 -60 Weight 72.575 kg Intake: Oral 591 790 Output: Urine 500 850 Other: Voiding Method External Catheter External Catheter # Bowel Movements 1 - Labs CBC & Chem 7: 06/15/23 10:29 06/15/23 10:29 Labs: Abnormal Lab Results - Last 24 Hours (Table) 06/14/23 06/14/23 06/14/23 Range/Units 09:11 09:11 09:11 WBC 17.0 H (3.8-10.6) k/uL Neutrophils # 12.3 H (1.3-7.7) k/uL APTT 70.3 H (22.0-30.0) sec Sodium 134 L (137-145) mmol/L Carbon Dioxide 15 L (22-30) mmol/L BUN 32 H (9-20) mg/dL Glucose 135 H (74-99) mg/dL
--- NOTE | 2023-06-15 13:09 | P.PN ---
Subjective Progress Note Date: 06/15/23 HISTORY OF PRESENT ILLNESS: This is an 88-year-old male patient of eduardo and Dr. Myers with a past medical history coronary artery disease status post PCI of the LAD and RCA, history of hypertension, hyperlipidemia BPH, neck and back surgeries for degenerative arthritis, patient was hospitalized at [facility] in 05/31/2023 and he was found to have a significant stenosis of the proximal LAD after heart cath physician that was done by Dr. Quintana, he underwent left heart catheterization with PCI of the proximal LAD using a size stents, and he did have a balloon angioplasty for dilatation as well, patient has done well over the last few months, patient presented to the emergency department at [facility] last night because of generalized fatigue and weakness and not able to do anything, unfortunately his who is the primary caregiver for him was diagnosed with covert and she has been in bed due to her illness, so he was brought to the ER for evaluation, he was tested positive for COVID-19, and the patient was found to have a slight elevation of the troponin I suggestive of a type II NJ without evidence of non-ST elevation NJ, and because of the presentat ion he was admitted to the hospital will be seen in consultation by pulmonary and cardiology, patient was started initially on heparin drip, therefore this will be discontinued and he will be placed on Lovenox 40 mg subcutaneously every 24 hours for DVT prophylaxis, patient will be maintained on vitamin D3 1000 unit once every day, vitamin C 500 mg orally once every day, and zinc 50 minute gram orally once every day, I will start the patient on dexamethasone 6 mg IV push every 24 hours. 06/13: Patient has been transferred up to the cardiac stepdown unit. He has been seen by cardiology while in the emergency center this morning for recheck and advised to continue heparin drip for 1 more day, 1 dose of IV Lasix 40 mg given an echocardiogram is pending. Patient is currently denying having any chest pain or shortness of breath. No cough or wheezing. No nausea or vomiting. Patient has been afebrile, heart rate in the 50s and 60s, blood pressure 136/82, pulse ox 95% on room air. 06/14: Patient believes his breathing status is improving. He denies having any cough no chest pain. He has been on a heparin drip and cardiology discontinue that today. Patient remains afebrile, heart rate in the 50s and 60s, blood pressure 119/58, pulse ox 95% on room air. Repeat blood work reveals WBC 17, hemoglobin 15, sodium 134, potassium 3.8, BUN 32 creatinine 0.98. Echocardiogram reveals normal LV function. Mild aortic stenosis and mild aortic regurgitation. Sclerotic aortic valve. Cardiology is recommending continuing aspirin 81 mg, statin, Imdur lisinopril and Inderal. Patient is also followed by pulmonary medicine. Anticipate probable discharge home tomorrow. Social work is following for discharge planning. 06/15: Patient complains of cough. No chest pain. No shortness of breath. He has been afebrile. Blood pressure 114/56, heart rate 53, pulse ox 96% on room air. Repeat blood work reveals hemoglobin 13.5, WBC 13.5. Sodium 136, potassium 3.7, BUN 35 creatinine 0.94. Blood sugar 178. Has been seen by cardiology and cleared for discharge. Patient has also been seen by Dr. Soria this morning and cleared for discharge. A PT OT consult have been added and there is concern about him going home and being safe. business analyst manager is working on discharge planning. Patient is to follow up with Dr. Myers in 2-3 weeks. We will plan to transfer the patient to [facility] until discharge plan is completed. REVIEW OF SYSTEMS: Constitutional: No documented fever, no chills, no night sweats. No weight change. positive for weakness, fatigue or lethargy. No daytime sleepiness. HEENT: No headache. No blurred vision or double vision, no loss of vision. No loss of Hearing, no ringing in the ears, no dizziness. No nasal drainage or congestion. No epistaxis. No sore throat. Lungs: Positive for shortness of breath, no cough, no sputum production. No wheezing. Reports dyspnea with activity. Cardiovascular: No chest pain, no lower extremity edema. No palpitations. No paroxysmal nocturnal dyspnea. No orthopnea. No lightheadedness or dizziness. No syncopal episodes. Abdominal: Reports no abdominal pain. No nausea, vomiting. No diarrhea. No constipation. No bloody or tarry stools reports loss of appetite. Genitourinary: No dysuria, increased frequency, urgency. No urinary retention. Musculoskeletal: No myalgias. No muscle weakness,positive for gait dysfunction, positive for frequent falls, positive for back pain, and neck pain. Integumentary: No wounds, no lesions. No rash or pruritus. No unusual bruising. No change in hair or nails. Neurologic: No aphasia. No facial droop. No change in mentation. No head injury. No headache. No paralysis. No paresthesia. Psychiatric: positive for depression. No anxiety. positive for mood swings. Endocrine: No abnormal blood sugars. No weight change. PHYSICAL EXAMINATION: General: 88-year-old male lying down in bed in no apparent distress. HEENT: Head is atraumatic, normocephalic, pupils were equal round reactive to light and recommendation, extraocular muscle movement were intact, sclera nonicteric, conjunctivae were pale, mucous membranes of the mouth are somewhat dry. Neck: Supple, no JVP, normal carotid upstroke bilaterally, no lymphadenopathy. Chest: Decreased breath sounds at the bases, few rhonchi, no extremity wheezes, no chest wall tenderness, no intercostal retractions. Heart: First heart sound is normal, second heart sounds normal there is systolic ejection murmur 2/6 located in the left sternal border. Abdomen: Soft, nontender, nondistended, positive bowel sounds. Extremities: There is no edema no calf tenderness DP +2 bilaterally. Neurologic examination: Patient is awake alert and oriented X 3, cranial nerves II-12 appear grossly intact, muscle power were 5 out of 5 in upper extremities and 5 out of 5 in bilateral lower extremities, deep tendon reflexes normal bilaterally. ASSESSMENT AND PLAN: 1. COVID-19 infection. Start the patient on droplet precautions, continue patient on dexamethasone 6 mg IV push every 24 hours, continue oxygen support as needed, continue vitamin D3 2000 units once every day, vitamin C 500 mg once every day, 650 mg once every day, primary consultation with Dr. Cantu. 2. Myocardial injury with type II NJ due to COVID-19 infection without evidence of non-ST elevation NJ. Continue heparin drip, continue patient on his cardiac medications. He is status post 1 dose of IV Lasix. 3. History of CAD post-PCI of the LAD and RCA. Last heart catheterization November 2019 showed stable disease. Continue aspirin 81 mg once every day, Lipitor 80 mg once every day, lisinopril 10 mg every day, isosorbide 20 mg orally twice every day, consider adding Ranexa 500 mg orally twice every day. 4. Hypertension and hypertensive cardiovascular disease. Continue lisinopril 10 mg orally once every day. 5. Sinus bradycardia with significant first-degree AV block. Monitor the patient overnight. 6. Hyperlipidemia. Continue Lipitor 80 mg once every day, keep LDL cholesterol 55-70. 7. Enlarged prostate continue Flomax 0.4 mg once every day. 8. 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 Continue with physical therapy as needed. 9. Chronic diastolic heart failure. Continue patient on lisinopril 10 mg or ally once every day, continue with Lasix 40 mg orally once every day Tuesday along with potassium supplements. 10. DVT prophylaxis. Lovenox 40 mg subcutaneously every 24 hours as well as bilateral knee-high JENNIFER hose. 11. GI prophylaxis. Continue Protonix 40 mg orally once every day. 12. Patient is full code. Impression and plan of care have been directed as dictated by the signing physician. Ingrid Benitez nurse practitioner acting as scribe for signing physician. Objective - Vital Signs Vital signs: Vital Signs Temp 97.8 F 06/15/23 04:00 Pulse 54 L 06/15/23 04:00 Resp 15 06/15/23 04:00 BP 112/58 06/15/23 04:00 Pulse Ox 96 06/15/23 04:00 FiO2 Intake & Output 06/14/23 06/15/23 06/15/23 18:59 06:59 18:59 Intake Total 591 790 Output Total 500 850 Balance 91 -60 Weight 72.575 kg Intake: Oral 591 790 Output: Urine 500 850 Other: Voiding Method External Catheter External Catheter # Bowel Movements 1 - Labs CBC & Chem 7: 06/15/23 10:29 06/15/23 10:29 Labs: Abnormal Lab Results - Last 24 Hours (Table) 06/14/23 06/14/23 06/14/23 Range/Units 09:11 09:11 09:11 WBC 17.0 H (3.8-10.6) k/uL Neutrophils # 12.3 H (1.3-7.7) k/uL APTT 70.3 H (22.0-30.0) sec Sodium 134 L (137-145) mmol/L Carbon Dioxide 15 L (22-30) mmol/L BUN 32 H (9-20) mg/dL Glucose 135 H (74-99) mg/dL
[2023-06-15 16:47] LABS: Glucose,Whole Blood 212 mg/dL (70-110)
[2023-06-15] MEDS: INSULIN ASPART (NovoLOG) 100 UNIT/ML VIAL SQ SCH (16:53)
[2023-06-15 20:05] LABS: Glucose,Whole Blood 153 mg/dL (70-110)
[2023-06-16 06:20] LABS: Glucose,Whole Blood 130 mg/dL (70-110)
[2023-06-16] MEDS: INSULIN ASPART (NovoLOG) 100 UNIT/ML VIAL SQ SCH ×3 (06:21→16:51)
[2023-06-16] MEDS: PANTOPRAZOLE 40 MG TABLET PO SCH (06:28)
[2023-06-16] MEDS: ALBUTEROL HFA INHALER INHALATION SCH ×4 (08:26→19:54)
[2023-06-16] MEDS: DEXAMETHASONE SOD PHOSPHATE 10 MG/ML 1 ML VIAL IVP SCH (08:47)
[2023-06-16] MEDS: ENOXAPARIN 40 MG/0.4 ML SYRINGE SQ SCH (08:47)
[2023-06-16] MEDS: ASPIRIN 81 MG PO SCH (08:48)
[2023-06-16] MEDS: FINASTERIDE 5 MG TAB PO SCH (08:48)
[2023-06-16] MEDS: ATORVASTATIN 80 MG TAB PO SCH (08:48)
[2023-06-16] MEDS: ISOSORBIDE MONONITRATE 20 MG TAB PO SCH ×2 (08:48→20:25)
[2023-06-16] MEDS: CHOLECALCIFEROL 25 MCG (1000 IU) TABLET PO SCH (08:48)
[2023-06-16] MEDS: TAMSULOSIN 0.4 MG CAP.ER.24H PO SCH (08:48)
[2023-06-16] MEDS: PROPRANOLOL 10 MG TAB PO SCH (08:48)
[2023-06-16] MEDS: lisinopriL 10 MG TAB PO SCH (08:48)
[2023-06-16] MEDS: ASCORBIC ACID 500 MG TAB PO SCH ×2 (08:48→20:25)
[2023-06-16] MEDS: ZINC SULFATE 220 MG CAP PO SCH (08:48)
--- NOTE | 2023-06-16 11:20 | P.PN ---
Subjective Progress Note Date: 06/16/23 HISTORY OF PRESENT ILLNESS: This is an 88-year-old male patient of eduardo and Dr. Myers with a past medical history coronary artery disease status post PCI of the LAD and RCA, history of hypertension, hyperlipidemia BPH, neck and back surgeries for degenerative arthritis, patient was hospitalized at [facility] in 05/31/2023 and he was found to have a significant stenosis of the proximal LAD after heart cath physician that was done by Dr. Quintana, he underwent left heart catheterization with PCI of the proximal LAD using a size stents, and he did have a balloon angioplasty for dilatation as well, patient has done well over the last few months, patient presented to the emergency department at [facility] last night because of generalized fatigue and weakness and not able to do anything, unfortunately his who is the primary caregiver for him was diagnosed with covert and she has been in bed due to her illness, so he was brought to the ER for evaluation, he was tested positive for COVID-19, and the patient was found to have a slight elevation of the troponin I suggestive of a type II ID without evidence of non-ST elevation ID, and because of the presentat ion he was admitted to the hospital will be seen in consultation by pulmonary and cardiology, patient was started initially on heparin drip, therefore this will be discontinued and he will be placed on Lovenox 40 mg subcutaneously every 24 hours for DVT prophylaxis, patient will be maintained on vitamin D3 1000 unit once every day, vitamin C 500 mg orally once every day, and zinc 50 minute gram orally once every day, I will start the patient on dexamethasone 6 mg IV push every 24 hours. 06/13: Patient has been transferred up to the cardiac stepdown unit. He has been seen by cardiology while in the emergency center this morning for recheck and advised to continue heparin drip for 1 more day, 1 dose of IV Lasix 40 mg given an echocardiogram is pending. Patient is currently denying having any chest pain or shortness of breath. No cough or wheezing. No nausea or vomiting. Patient has been afebrile, heart rate in the 50s and 60s, blood pressure 136/82, pulse ox 95% on room air. 06/14: Patient believes his breathing status is improving. He denies having any cough no chest pain. He has been on a heparin drip and cardiology discontinue that today. Patient remains afebrile, heart rate in the 50s and 60s, blood pressure 119/58, pulse ox 95% on room air. Repeat blood work reveals WBC 17, hemoglobin 15, sodium 134, potassium 3.8, BUN 32 creatinine 0.98. Echocardiogram reveals normal LV function. Mild aortic stenosis and mild aortic regurgitation. Sclerotic aortic valve. Cardiology is recommending continuing aspirin 81 mg, statin, Imdur lisinopril and Inderal. Patient is also followed by pulmonary medicine. Anticipate probable discharge home tomorrow. Social work is following for discharge planning. 06/15: Patient complains of cough. No chest pain. No shortness of breath. He has been afebrile. Blood pressure 114/56, heart rate 53, pulse ox 96% on room air. Repeat blood work reveals hemoglobin 13.5, WBC 13.5. Sodium 136, potassium 3.7, BUN 35 creatinine 0.94. Blood sugar 178. Has been seen by cardiology and cleared for discharge. Patient has also been seen by Dr. Soria this morning and cleared for discharge. A PT OT consult have been added and there is concern about him going home and being safe. manager customs is working on discharge planning. Patient is to follow up with Dr. Myers in 2-3 weeks. We will plan to transfer the patient to [facility] until discharge plan is completed. 06/16: Patient worked with physical therapy this morning and already has some improvement of his strength. He is still at risk for fall if he were discharged home. He continues to have balance issues as well and strength issues. Patient has been afebrile, heart rate 65, blood pressure 165/72, pulse ox 96% on room air. Blood glucose running between 130s and 153. Patient remains on IV dexamethasone which will decrease to 4 mg. He is also on the vitamin cocktail. Discharge planning is for subacute rehab and patient may be expected at [facility] and currently we are waiting for insurance authorization. Patient may be transferred to [facility] once bed is available. REVIEW OF SYSTEMS: Constitutional: No documented fever, no chills, no night sweats. No weight change. positive for weakness, fatigue or lethargy. No daytime sleepiness. HEENT: No headache. No blurred vision or double vision, no loss of vision. No loss of Hearing, no ringing in the ears, no dizziness. No nasal drainage or congestion. No epistaxis. No sore throat. Lungs: Positive for shortness of breath, no cough, no sputum production. No wheezing. Reports dyspnea with activity. Cardiovascular: No chest pain, no lower extremity edema. No palpitations. No paroxysmal nocturnal dyspnea. No orthopnea. No lightheadedness or dizziness. No syncopal episodes. Abdominal: Reports no abdominal pain. No nausea, vomiting. No diarrhea. No constipation. No bloody or tarry stools reports loss of appetite. Genitourinary: No dysuria, increased frequency, urgency. No urinary retention. Musculoskeletal: No myalgias. + muscle weakness,positive for gait dysfunction, positive for frequent falls, positive for back pain, and neck pain. Integumentary: No wounds, no lesions. No rash or pruritus. No unusual bruising. No change in hair or nails. Neurologic: No aphasia. No facial droop. No change in mentation. No head injury. No headache. No paralysis. No paresthesia. Psychiatric: positive for depression. No anxiety. positive for mood swings. Endocrine: No abnormal blood sugars. No weight change. PHYSICAL EXAMINATION: General: 88-year-old male lying down in bed in no apparent distress. HEENT: Head is atraumatic, normocephalic, pupils were equal round reactive to light and recommendation, extraocular muscle movement were intact, sclera nonicteric, conjunctivae were pale, mucous membranes of the mouth are somewhat dry. Neck: Supple, no JVP, normal carotid upstroke bilaterally, no lymphadenopathy. Chest: Decreased breath sounds at the bases, few rhonchi, no extremity wheezes, no chest wall tenderness, no intercostal retractions. Heart: First heart sound is normal, second heart sounds normal there is systolic ejection murmur 2/6 located in the left sternal border. Abdomen: Soft, nontender, nondistended, positive bowel sounds. Extremities: There is no edema no calf tenderness DP +2 bilaterally. Neurologic examination: Patient is awake alert and oriented X 3, cranial nerves II-12 appear grossly intact, muscle power were 5 out of 5 in upper extremities and 5 out of 5 in bilateral lower extremities, deep tendon reflexes normal bilaterally. ASSESSMENT AND PLAN: 1. COVID-19 infection. And tinea droplet precautions, continue patient on dexamethasone decreased for mg IV push every 24 hours, continue oxygen support as needed, continue vitamin D3 2000 units once every day, vitamin C 500 mg once every day, 650 mg once every day, pulmonary consultation appreciated. 2. Myocardial injury with type II ID due to COVID-19 infection without evidence of non-ST elevation ID. Continue heparin drip, continue patient on his cardiac medications. He is status post 1 dose of IV Lasix. 3. History of CAD post-PCI of the LAD and RCA. Last heart catheterization November 2019 showed stable disease. Continue aspirin 81 mg once every day, Lipitor 80 mg once every day, lisinopril 10 mg every day, isosorbide 20 mg orally twice every day, consider adding Ranexa 500 mg orally twice every day. 4. Hypertension and hypertensive cardiovascular disease. Continue lisinopril 10 mg orally once every day. 5. Sinus bradycardia with significant first-degree AV block. Monitor the patient overnight. 6. Hyperlipidemia. Continue Lipitor 80 mg once every day, keep LDL cholesterol 55-70. 7. Enlarged prostate continue Flomax 0.4 mg once every day. 8. 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 Continue with physical therapy as needed. 9. Chronic diastolic heart failure. Continue patient on lisinopril 10 mg orally once every day, continue with Lasix 40 mg orally once every day Tuesday along with potassium supplements. 10. DVT prophylaxis. Lovenox 40 mg subcutaneously every 24 hours as well as bilateral knee-high JENNIFER hose. 11. GI prophylaxis. Continue Protonix 40 mg orally once every day. 12. Patient is full code. Impression and plan of care have been directed as dictated by the signing physician. Ingrid Benitez nurse practitioner acting as scribe for signing physician. Objective - Vital Signs Vital signs: Vital Signs Temp 97.5 F L 06/16/23 08:45 Pulse 65 06/16/23 08:45 Resp 18 06/16/23 08:45 BP 165/72 06/16/23 08:45 Pulse Ox 96 06/16/23 08:45 FiO2 Intake & Output 06/15/23 06/16/23 06/16/23 18:59 06:59 18:59 Intake Total 540 120 Output Total 300 800 Balance 240 -800 120 Intake: Oral 540 120 Output: Urine 300 800 Other: Voiding Method External Catheter External Catheter External Catheter - Labs CBC & Chem 7: 06/15/23 10:29 06/15/23 10:29 Labs: Abnormal Lab Results - Last 24 Hours (Table) 06/15/23 06/15/23 06/15/23 Range/Units 10:29 16:45 20:03 Sodium 136 L (137-145) mmol/L Carbon Dioxide 20 L (22-30) mmol/L BUN 35 H (9-20) mg/dL Glucose 178 H (74-99) mg/dL POC Glucose (mg/dL) 212 H 153 H (70-110) mg/dL Total Protein 5.2 L (6.3-8.2) g/dL Albumin 2.9 L (3.5-5.0) g/dL 06/16/23 Range/Units 06:18 Sodium (137-145) mmol/L Carbon Dioxide (22-30) mmol/L BUN (9-20) mg/dL Glucose (74-99) mg/dL POC Glucose (mg/dL) 130 H (70-110) mg/dL Total Protein (6.3-8.2) g/dL Albumin (3.5-5.0) g/dL
[2023-06-16 11:41] LABS: Glucose,Whole Blood 145 mg/dL (70-110)
[2023-06-16] MEDS ORDERED: lisinopriL 10 MG TAB PO STA (12:35)
--- NOTE | 2023-06-16 13:42 | P.PN ---
Subjective Progress Note Date: 06/16/23 88-year-old male with past medical history of CAD status post PCI to LAD, RCA, history of hypertension, dyslipidemia, BPH, known to Dr. Myers. His last heart catheterization was in May 2022 intermediate lesion in LAD ifr positive requiring PCI. He had moderate in-stent stenosis in RCA and moderate disease in LCx He was brought to the hospital because of worsening generalized weakness, resulting in a mechanical fall along with worsening shortness of breath. He was tested positive for COVID-19. On admission blood pressure 144/71 pulse 60. Troponin 0.09, 0.1, 0.17 ECG showed sinus rhythm with Q waves in inferior leads consistent of old IN, LVH, IVCD, PVCs Chest x-ray was normal with no signs of primary congestion Hemoglobin 13, BUN 20, creatinine 0.8 Last echo from February 2023 shows moderate LVH, EF 55-50%, moderate aortic stenosis with mean gradient of 20 mmHg 06/13 Patient is seen again today in the emergency center waiting for a bed on the cardiac stepdown unit. Patient denies having any chest pain, no shortness of breath, no cough or wheezing. No nausea vomiting. He does have some lower extremity edema. Blood pressure 136/82, heart rate is in the 50s and 60s, pulse ox 95% on room air. Patient is currently on heparin drip. Echocardiogram is pending. 06/14 Patient is seen today on the CSD unit. He states his breathing status is improving, no chest pain, no cough. He states he is feeling pretty well right now. He has been on heparin drip which we will discontinue today. Patient has been afebrile greater than 24 hours, heart rate in the 50s and 60s, blood pressure 119/58, pulse ox 95% on room air. Repeat blood work reveals WBC 17, hemoglobin 15, sodium 134, potassium 3.8, BUN 32 creatinine 0.98. Echocardiogram reveals normal LV function. Mild aortic stenosis and mild aortic regurgitation. Sclerotic aortic valve. 06/15 Patient complains of cough. No chest pain. No shortness of breath. He has been afebrile. Blood pressure 114/56, heart rate 53, pulse ox 96% on room air. Repeat blood work reveals hemoglobin 13.5, WBC 13.5. Sodium 136, potassium 3.7, BUN 35 creatinine 0.94. Blood sugar 178. 06/16 Patient is seen sitting in chair today. He states he is getting a little bit better, shortness of breath is better, and weakness is improving he did well for a few with physical therapy. Discharge plan is for rehab. Blood pressure 164/70, heart rate in the 50s and 60s, afebrile, pulse ox 95% on room air. PHYSICAL EXAMINATION Vital signs reviewed. Head: Normocephalic. Eyes: Sclerae nonicteric. Neck: Brisk carotid upstroke, no jugular venous distention. Lungs: Clear to auscultation. Heart: Regular rate and rhythm, S1-S2, no S3, no murmur or rub. Abdomen: Soft nontender, positive bowel sounds no organomegaly. Extremities: 1+ edema, intact distal pulses. Neuro: Alert, oritented, no focal deficits ASSESSMENT NSTEMI Generalized weakness and mechanical fall COVID Positive CAD status post PCI to LAD May 2022. Moderate in-stent stenosis in RCA stent. Moderate LCx disease Moderate LVH [id number] aortic stenosis Frequent Premature ventricular contractions PLAN Continue Aspirin 81 mg, atorvastatin, Imdur, lisinopril increased to 20 milligrams daily, Inderal Patient is cleared from cardiology for discharge and a follow-up in the office in 2-[address] Myers. Nurse practitioner note has been reviewed, I agree with the documented findings and plan of care. Patient was seen and examined. Objective - Vital Signs Vital signs: Vital Signs Temp 97.5 F L 06/16/23 08:45 Pulse 65 06/16/23 08:45 Resp 18 06/16/23 08:45 BP 165/72 06/16/23 08:45 Pulse Ox 96 06/16/23 08:45 FiO2 Intake & Output 06/15/23 06/16/23 06/16/23 18:59 06:59 18:59 Intake Total 540 120 Output Total 300 800 Balance 240 -800 120 Intake: Oral 540 120 Output: Urine 300 800 Other: Voiding Method External Catheter External Catheter External Catheter - Labs CBC & Chem 7: 06/15/23 10:29 06/15/23 10:29 Labs: Abnormal Lab Results - Last 24 Hours (Table) 06/15/23 06/15/23 06/16/23 Range/Units 16:45 20:03 06:18 POC Glucose (mg/dL) 212 H 153 H 130 H (70-110) mg/dL 06/16/23 Range/Units 11:31 POC Glucose (mg/dL) 145 H (70-110) mg/dL
--- NOTE | 2023-06-16 14:47 | P.PN ---
Subjective Progress Note Date: 06/16/23 88-year-old male, seen in the emergency department, room 2. The patient was evaluated, on June 11, for complaints of generalized weakness, and mild shortness of breath. He apparently was feeling weak, and, fell, injuring his elbow. He apparently did not hit his head, and apparently did not have loss of consciousness. Apparently his was positive for coronavirus. He also tested positive. The patient does admit to some mild shortness of breath, cough and congestion. The patient appears not to have any respiratory distress at this time. The patient was on 2 L of oxygen. His troponins were elevated, and for that reason, he was on IV heparin. White count 8.8, hemoglobin 13.5, hematocrit 40, and platelet count 150,000. PTT is 116.2. Sodium 137, potassium 4, chlorides 108, CO2 18, BUN 20, and creatinine 0.83. Glucose 127. Troponins were 0.099, 0.108, and 0.174. He was negative for influenza A and influenza B, and respiratory syncytial virus. He did test positive for coronavirus. The patient's chest x-ray was normal without any acute infiltrate. On today's evaluation of 06/13/2023, I'm seeing the patient for a follow-up. He is currently on room and oxygen. No major respiratory difficulties. The patient was tested positive for Covid 19. He has received previous vaccination. No major respiratory distress at this point in time.The physical is at 12.9 with a hemoglobin of 14, coagulation profile is normal and the patient is currently off the IV heparin as the PTT is quite elevated. Troponins are 0.12 respectively. History of any chest pain. On 06/14/2023, the patient remains on room air oxygen. I had a discussion with the nursing staff and I was told that he was having some symptoms suggestive of sundowner. Otherwise, he is stable. Extremities. No focal neurological deficits. He has a Covid 19 infection. His blood work from 06/13/2023 was noted. His magnesium level is at 1.8. Rest of the CBC is essentially within normal limits. He did have some mild elevation of troponin with a peak troponin level of 0.174. He was seen by cardiology and he was kept on IV heparin for another 24 hours. He was told to have a type II myocardial injury due to Covid 19 infection without evidence of any ST segment changes. He was also given a dose of Lasix yesterday. Is known to have coronary artery disease with previous PCI to LAD and RCA. His last cardiac catheterization was noted. 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 His other comorbidities include hypertension, hyperlipidemia, BPH, diastolic heart failure and degenerative cervical disc disease. His repeat chest x-ray from today is showing no acute abnormalities. Instruments and platelets are seen in his cervical spine and the lower thoracic upper lumbar spine. On 06/15/2023, no new complaints and the patient is currently on room air oxygen. No significant respiratory difficulties. No cough or sputum production. No other significant events overnight.No new labs are available from today. The patient is currently on Decadron. The patient is on Lovenox for DVT prophylaxis. The patient is currently off IV heparin. He remains on aspirin. On 06/16/2023, the patient continues to be on Decadron. He remains on room air oxygen. No altered mentation. No chest pain. No cough or congestion. He remains on room air oxygen. He is clinically stable. He is hemodynamically stable. Labs from yesterday were all stable. 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 He is currently on interview or, lisinopril dose was increased up to 20 mg and is also on Inderal. Discharge planning is in progress. The patient is being considered to be going to [facility]. Objective - Vital Signs Vital signs: Vital Signs Temp 97.5 F L 06/16/23 08:45 Pulse 65 06/16/23 08:45 Resp 18 06/16/23 08:45 BP 165/72 06/16/23 08:45 Pulse Ox 96 06/16/23 08:45 FiO2 Intake & Output 06/15/23 06/16/23 06/16/23 18:59 06:59 18:59 Intake Total 540 120 Output Total 300 800 Balance 240 -800 120 Intake: Oral 540 120 Output: Urine 300 800 Other: Voiding Method External Catheter External Catheter External Catheter - Exam No acute distress, oriented 3. No respiratory distress. Currently on RA HEENT examination is grossly unremarkable. Mucous membranes are moist. No oral lesions. Neck supple. Full range of motion. No adenopathy thyromegaly or neck vein distention. Cardiovascular examination reveals regular rhythm rate. S1-S2 normal. No S3 or S4. No discernible murmur noted. Heart sounds are distant. Heart rate 52 bpm. Lungs reveal mostly clear breath sounds. Minimal scattered rhonchi. No wheezes or crackles. Breath sounds equal. Abdomen soft bowel sounds are heard. No masses or tenderness. Extremities are intact. No cyanosis clubbing or edema. Skin is without rash or lesion. Neurologic examination is brief but nonfocal. - Labs CBC & Chem 7: 06/15/23 10:29 06/15/23 10:29 Labs: Abnormal Lab Results - Last 24 Hours (Table) 06/15/23 06/15/23 06/16/23 Range/Units 16:45 20:03 06:18 POC Glucose (mg/dL) 212 H 153 H 130 H (70-110) mg/dL Assessment and Plan Plan: Acute coronavirus infection, without coronavirus associated pneumonia. The patient is currently on room air oxygen. Chest x-ray showed no clear evidence of any pneumonia. The chest x-ray from 2 days. The patient has no issues with oxygenation and the patient is on room air oxygen. No signs of any respiratory insufficiency at this point in time. The patient is on Decadron 6 mg IV every 24 hours. Acute non-ST segment elevation myocardial infarction. This is thought to be related to type II coronary ischemia Coronary artery disease, S/P stent placement. Previous cardiac catheterization from May 2022 showed that the patient has undergone PCI to LAD and he has a moderate in-stent stenosis of the RCA stent a moderate circumflex disease. History of myocardial infarction. History of hyperlipidemia. History of hypertension. History of osteoarthritis. History of pneumonia. Prior history of tobacco use. Plan: Overall pulmonary status is stable We'll complete the course of Decadron Patient is currently on room air oxygen. The chest x-ray shows no acute consolidation or airspace disease, repeat chest x-ray was also clear Echocardiogram from 03/05/2023 showed a preserved LV function with an ejection fraction of 55-60% IV fluids to KVO Blood pressure is elevated and the patient is currently on lisinopril and the dose was increased up to 20 mg and is also on Inderal and imdur Continue blood pressure monitoring Continue multiple vitamin supplements We'll continue to follow [facility] today to complete a course of a total of 10 day course of Decadron on an outpatient basis. I came to find other the patient is nonambulatory at this point in time. He is extremely weak and he cannot walk. His also has Covid 19. Patient is going to [facility]
[2023-06-16 16:32] LABS: Glucose,Whole Blood 168 mg/dL (70-110)
[2023-06-16 20:02] LABS: Glucose,Whole Blood 195 mg/dL (70-110)
[2023-06-17] MEDS ORDERED: POTASSIUM CHLORIDE ER 20 MEQ TAB.ER PO STA (03:03)
[2023-06-17] MEDS: PANTOPRAZOLE 40 MG TABLET PO SCH (05:37)
[2023-06-17 06:08] LABS: Glucose,Whole Blood 118 mg/dL (70-110)
[2023-06-17] MEDS: INSULIN ASPART (NovoLOG) 100 UNIT/ML VIAL SQ SCH ×3 (06:21→18:19)
[2023-06-17] MEDS: ALBUTEROL HFA INHALER INHALATION SCH ×4 (07:55→21:18)
[2023-06-17 08:49] LABS: ALT 51 U/L (4-49); AST 36 U/L (17-59); African American GFR (CKD) 81 (>60 ml/min/1.73 sqM); Alkaline Phosphatase 61 U/L (38-126); Anion Gap 8 mmol/L; Blood Urea Nitrogen 42 mg/dL (9-20); Calcium 8.6 mg/dL (8.4-10.2); Carbon Dioxide 22 mmol/L (22-30); Chloride 107 mmol/L (98-107); Glucose 113 mg/dL (74-99); Non-African American GFR(CKD) 70 (>60 ml/min/1.73 sqM); Potassium 4.3 mmol/L (3.5-5.1); Sodium 137 mmol/L (137-145); Total Bilirubin 0.7 mg/dL (0.2-1.3); Total Protein 5.3 g/dL (6.3-8.2)
[2023-06-17] MEDS ORDERED: DEXAMETHASONE SOD PHOSPHATE 10 MG/ML 1 ML VIAL IVP SCH (09:00)
[2023-06-17 09:19] LABS: Basophils % (A) 0 %; Eosinophils % (A) 0 %; HCT 41.1 % (39.0-53.0); Lymphocytes # (A) 3.1 k/uL (1.0-4.8); Lymphocytes % (A) 24 %; MCH 32.9 pg (25.0-35.0); MCV 96.9 fL (80.0-100.0); Mean Platelet Volume 7.3; Monocytes # (A) 0.7 k/uL (0-1.0); Monocytes % (A) 6 %; Neutrophils # (A) 8.7 k/uL (1.3-7.7); Neutrophils % (A) 68 %; Platelet Count 206 k/uL (150-450); RBC 4.25 m/uL (4.30-5.90); WBC 12.7 k/uL (3.8-10.6)
[2023-06-17] MEDS: ASPIRIN 81 MG PO SCH (09:50)
[2023-06-17] MEDS: ISOSORBIDE MONONITRATE 20 MG TAB PO SCH ×2 (09:50→20:55)
[2023-06-17] MEDS: PROPRANOLOL 10 MG TAB PO SCH (09:50)
[2023-06-17] MEDS: ENOXAPARIN 40 MG/0.4 ML SYRINGE SQ SCH (09:50)
[2023-06-17] MEDS: FINASTERIDE 5 MG TAB PO SCH (09:51)
[2023-06-17] MEDS: dexAMETHasone 4 MG TAB PO SCH (09:51)
[2023-06-17] MEDS: lisinopriL 20 MG TAB PO SCH (09:51)
[2023-06-17] MEDS: TAMSULOSIN 0.4 MG CAP.ER.24H PO SCH (09:51)
[2023-06-17] MEDS: ASCORBIC ACID 500 MG TAB PO SCH ×2 (09:51→20:55)
[2023-06-17] MEDS: ZINC SULFATE 220 MG CAP PO SCH (09:51)
[2023-06-17] MEDS: ATORVASTATIN 80 MG TAB PO SCH (09:51)
[2023-06-17] MEDS: FUROSEMIDE 40 MG TAB PO SCH (09:51)
[2023-06-17] MEDS: CHOLECALCIFEROL 25 MCG (1000 IU) TABLET PO SCH (09:51)
[2023-06-17 12:07] LABS: Glucose,Whole Blood 125 mg/dL (70-110)
--- NOTE | 2023-06-17 12:57 | P.PN ---
Subjective Progress Note Date: 06/17/23 88-year-old male, seen in the emergency department, room 2. The patient was evaluated, on June 11, for complaints of generalized weakness, and mild shortness of breath. He apparently was feeling weak, and, fell, injuring his elbow. He apparently did not hit his head, and apparently did not have loss of consciousness. Apparently his was positive for coronavirus. He also tested positive. The patient does admit to some mild shortness of breath, cough and congestion. The patient appears not to have any respiratory distress at this time. The patient was on 2 L of oxygen. His troponins were elevated, and for that reason, he was on IV heparin. White count 8.8, hemoglobin 13.5, hematocrit 40, and platelet count 150,000. PTT is 116.2. Sodium 137, potassium 4, chlorides 108, CO2 18, BUN 20, and creatinine 0.83. Glucose 127. Troponins were 0.099, 0.108, and 0.174. He was negative for influenza A and influenza B, and respiratory syncytial virus. He did test positive for coronavirus. The patient's chest x-ray was normal without any acute infiltrate. On today's evaluation of 06/13/2023, I'm seeing the patient for a follow-up. He is currently on room and oxygen. No major respiratory difficulties. The patient was tested positive for Covid 19. He has received previous vaccination. No major respiratory distress at this point in time.The physical is at 12.9 with a hemoglobin of 14, coagulation profile is normal and the patient is currently off the IV heparin as the PTT is quite elevated. Troponins are 0.12 respectively. History of any chest pain. On 06/14/2023, the patient remains on room air oxygen. I had a discussion with the nursing staff and I was told that he was having some symptoms suggestive of sundowner. Otherwise, he is stable. Extremities. No focal neurological deficits. He has a Covid 19 infection. His blood work from 06/13/2023 was noted. His magnesium level is at 1.8. Rest of the CBC is essentially within normal limits. He did have some mild elevation of troponin with a peak troponin level of 0.174. He was seen by cardiology and he was kept on IV heparin for another 24 hours. He was told to have a type II myocardial injury due to Covid 19 infection without evidence of any ST segment changes. He was also given a dose of Lasix yesterday. Is known to have coronary artery disease with previous PCI to LAD and RCA. His last cardiac catheterization was noted. 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 His other comorbidities include hypertension, hyperlipidemia, BPH, diastolic heart failure and degenerative cervical disc disease. His repeat chest x-ray from today is showing no acute abnormalities. Instruments and platelets are seen in his cervical spine and the lower thoracic upper lumbar spine. On 06/15/2023, no new complaints and the patient is currently on room air oxygen. No significant respiratory difficulties. No cough or sputum production. No other significant events overnight.No new labs are available from today. The patient is currently on Decadron. The patient is on Lovenox for DVT prophylaxis. The patient is currently off IV heparin. He remains on aspirin. On 06/16/2023, the patient continues to be on Decadron. He remains on room air oxygen. No altered mentation. No chest pain. No cough or congestion. He remains on room air oxygen. He is clinically stable. He is hemodynamically stable. Labs from yesterday were all stable. 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 He is currently on interview or, lisinopril dose was increased up to 20 mg and is also on Inderal. Discharge planning is in progress. The patient is being considered to be going to [facility]. on today's evaluation of 06/17/2023, the patient is doing well. No specific complaints. He is still awaiting his discharge to [facility]. No respiratory difficulties. Remains on Decadron.The white cycles of 12.7 with a hemoglobin of 14 and a platelet count of 206. BUN is at 42 with a creatinine 0.9 and a sodium level is at 137. Objective - Vital Signs Vital signs: Vital Signs Temp 98.0 F 06/17/23 08:00 Pulse 63 06/17/23 08:00 Resp 20 06/17/23 08:00 BP 128/64 06/17/23 08:00 Pulse Ox 98 06/17/23 08:00 FiO2 Intake & Output 06/16/23 06/17/23 06/17/23 18:59 06:59 18:59 Intake Total 360 128 Output Total 350 Balance 360 -350 128 Intake: IV 10 Invasive Line 2 10 Oral 360 118 Output: Urine 350 Other: Voiding Method External Catheter External Catheter External Catheter # Bowel Movements 0 - Exam No acute distress, oriented 3. No respiratory distress. Currently on RA HEENT examination is grossly unremarkable. Mucous membranes are moist. No oral lesions. Neck supple. Full range of motion. No adenopathy thyromegaly or neck vein distention. Cardiovascular examination reveals regular rhythm rate. S1-S2 normal. No S3 or S4. No discernible murmur noted. Heart sounds are distant. Heart rate 52 bpm. Lungs reveal mostly clear breath sounds. Minimal scattered rhonchi. No wheezes or crackles. Breath sounds equal. Abdomen soft bowel sounds are heard. No masses or tenderness. Extremities are intact. No cyanosis clubbing or edema. Skin is without rash or lesion. Neurologic examination is brief but nonfocal. - Labs CBC & Chem 7: 06/17/23 08:06 06/17/23 08:06 Labs: Abnormal Lab Results - Last 24 Hours (Table) 06/16/23 06/16/23 06/16/23 Range/Units 10:19 11:31 16:30 WBC (3.8-10.6) k/uL RBC (4.30-5.90) m/uL Neutrophils # (1.3-7.7) k/uL BUN (9-20) mg/dL Glucose (74-99) mg/dL POC Glucose (mg/dL) 145 H 168 H (70-110) mg/dL Hemoglobin A1c 6.3 H (<=6.0) % ALT (4-49) U/L Total Protein (6.3-8.2) g/dL Albumin (3.5-5.0) g/dL 06/16/23 06/17/23 06/17/23 Range/Units 20:00 06:06 08:06 WBC 12.7 H (3.8-10.6) k/uL RBC 4.25 L (4.30-5.90) m/uL Neutrophils # 8.7 H (1.3-7.7) k/uL BUN (9-20) mg/dL Glucose (74-99) mg/dL POC Glucose (mg/dL) 195 H 118 H (70-110) mg/dL Hemoglobin A1c (<=6.0) % ALT (4-49) U/L Total Protein (6.3-8.2) g/dL Albumin (3.5-5.0) g/dL 06/17/23 Range/Units 08:06 WBC (3.8-10.6) k/uL RBC (4.30-5.90) m/uL Neutrophils # (1.3-7.7) k/uL BUN 42 H (9-20) mg/dL Glucose 113 H (74-99) mg/dL POC Glucose (mg/dL) (70-110) mg/dL Hemoglobin A1c (<=6.0) % ALT 51 H (4-49) U/L Total Protein 5.3 L (6.3-8.2) g/dL Albumin 3.0 L (3.5-5.0) g/dL Assessment and Plan Plan: Acute coronavirus infection, without coronavirus associated pneumonia. The patient is currently on room air oxygen. Chest x-ray showed no clear evidence of any pneumonia. The chest x-ray from 2 days. The patient has no issues with oxygenation and the patient is on room air oxygen. No signs of any respiratory insufficiency at this point in time. The patient is on Decadron 6 mg IV every 24 hours. Acute non-ST segment elevation myocardial infarction. This is thought to be related to type II coronary ischemia Coronary artery disease, S/P stent placement. Previous cardiac catheterization from May 2022 showed that the patient has undergone PCI to LAD and he has a moderate in-stent stenosis of the RCA stent a moderate circumflex disease. History of myocardial infarction. History of hyperlipidemia. History of hypertension. History of osteoarthritis. History of pneumonia. Prior history of tobacco use. Plan: the patient is stable awaiting his discharge tomorrow with manner and this will likely happen today Overall pulmonary status is stable We'll complete the course of Decadron Patient is currently on room air oxygen. The chest x-ray shows no acute consolidation or airspace disease, repeat chest x-ray was also clear Echocardiogram from 03/05/2023 showed a preserved LV function with an ejection fraction of 55-60% IV fluids to KVO Blood pressure is elevated and the patient is currently on lisinopril and the dose was increased up to 20 mg and is also on Inderal and imdur Continue blood pressure monitoring Continue multiple vitamin supplements We'll continue to follow [facility] today to complete a course of a total of 10 day course of Decadron on an outpatient basis. I came to find other the patient is nonambulatory at this point in time. He is extremely weak and he cannot walk. His also has Covid 19. Patient is going to [facility]
[2023-06-17 16:56] LABS: Glucose,Whole Blood 155 mg/dL (70-110)
[2023-06-18] MEDS: PANTOPRAZOLE 40 MG TABLET PO SCH (06:25)
[2023-06-18] MEDS: ALBUTEROL HFA INHALER INHALATION SCH ×4 (08:51→17:56)
[2023-06-18] MEDS: ATORVASTATIN 80 MG TAB PO SCH (09:10)
[2023-06-18] MEDS: FUROSEMIDE 40 MG TAB PO SCH (09:10)
[2023-06-18] MEDS: CHOLECALCIFEROL 25 MCG (1000 IU) TABLET PO SCH (09:10)
[2023-06-18] MEDS: ASPIRIN 81 MG PO SCH (09:10)
[2023-06-18] MEDS: dexAMETHasone 4 MG TAB PO SCH (09:10)
[2023-06-18] MEDS: TAMSULOSIN 0.4 MG CAP.ER.24H PO SCH (09:10)
[2023-06-18] MEDS: ENOXAPARIN 40 MG/0.4 ML SYRINGE SQ SCH (09:10)
[2023-06-18] MEDS: ASCORBIC ACID 500 MG TAB PO SCH ×2 (09:10→20:42)
[2023-06-18] MEDS: FINASTERIDE 5 MG TAB PO SCH (09:10)
[2023-06-18] MEDS: ZINC SULFATE 220 MG CAP PO SCH (09:10)
[2023-06-18] MEDS: ISOSORBIDE MONONITRATE 20 MG TAB PO SCH ×2 (09:10→20:42)
[2023-06-18] MEDS: PROPRANOLOL 10 MG TAB PO SCH (09:10)
[2023-06-18] MEDS: lisinopriL 20 MG TAB PO SCH (09:10)
[2023-06-18 11:30] LABS: Glucose,Whole Blood 149 mg/dL (70-110)
[2023-06-18] MEDS: INSULIN ASPART (NovoLOG) 100 UNIT/ML VIAL SQ SCH ×3 (11:51→16:59)
--- NOTE | 2023-06-18 13:31 | P.PN ---
Subjective Progress Note Date: 06/18/23 88-year-old male, seen in the emergency department, room 2. The patient was evaluated, on June 11, for complaints of generalized weakness, and mild shortness of breath. He apparently was feeling weak, and, fell, injuring his elbow. He apparently did not hit his head, and apparently did not have loss of consciousness. Apparently his was positive for coronavirus. He also tested positive. The patient does admit to some mild shortness of breath, cough and congestion. The patient appears not to have any respiratory distress at this time. The patient was on 2 L of oxygen. His troponins were elevated, and for that reason, he was on IV heparin. White count 8.8, hemoglobin 13.5, hematocrit 40, and platelet count 150,000. PTT is 116.2. Sodium 137, potassium 4, chlorides 108, CO2 18, BUN 20, and creatinine 0.83. Glucose 127. Troponins were 0.099, 0.108, and 0.174. He was negative for influenza A and influenza B, and respiratory syncytial virus. He did test positive for coronavirus. The patient's chest x-ray was normal without any acute infiltrate. On today's evaluation of 06/13/2023, I'm seeing the patient for a follow-up. He is currently on room and oxygen. No major respiratory difficulties. The patient was tested positive for Covid 19. He has received previous vaccination. No major respiratory distress at this point in time.The physical is at 12.9 with a hemoglobin of 14, coagulation profile is normal and the patient is currently off the IV heparin as the PTT is quite elevated. Troponins are 0.12 respectively. History of any chest pain. On 06/14/2023, the patient remains on room air oxygen. I had a discussion with the nursing staff and I was told that he was having some symptoms suggestive of sundowner. Otherwise, he is stable. Extremities. No focal neurological deficits. He has a Covid 19 infection. His blood work from 06/13/2023 was noted. His magnesium level is at 1.8. Rest of the CBC is essentially within normal limits. He did have some mild elevation of troponin with a peak troponin level of 0.174. He was seen by cardiology and he was kept on IV heparin for another 24 hours. He was told to have a type II myocardial injury due to Covid 19 infection without evidence of any ST segment changes. He was also given a dose of Lasix yesterday. Is known to have coronary artery disease with previous PCI to LAD and RCA. His last cardiac catheterization was noted. 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 His other comorbidities include hypertension, hyperlipidemia, BPH, diastolic heart failure and degenerative cervical disc disease. His repeat chest x-ray from today is showing no acute abnormalities. Instruments and platelets are seen in his cervical spine and the lower thoracic upper lumbar spine. On 06/15/2023, no new complaints and the patient is currently on room air oxygen. No significant respiratory difficulties. No cough or sputum production. No other significant events overnight.No new labs are available from today. The patient is currently on Decadron. The patient is on Lovenox for DVT prophylaxis. The patient is currently off IV heparin. He remains on aspirin. On 06/16/2023, the patient continues to be on Decadron. He remains on room air oxygen. No altered mentation. No chest pain. No cough or congestion. He remains on room air oxygen. He is clinically stable. He is hemodynamically stable. Labs from yesterday were all stable. Slightly hypertensive and advertising operations coordinator on the case regarding blood pressure management. He is currently on interview or, lisinopril dose was increased up to 20 mg and is also on Inderal. Discharge planning is in progress. The patient is being considered to be going to [facility]. on today's evaluation of 06/17/2023, the patient is doing well. No specific complaints. He is still awaiting his discharge to [facility]. No respiratory difficulties. Remains on Decadron.The white cycles of 12.7 with a hemoglobin of 14 and a platelet count of 206. BUN is at 42 with a creatinine 0.9 and a sodium level is at 137. On 06/18/2023, no new complaints and the patient's condition is stable, room air oxygen awaiting [facility] transfer, pulse ox is 96% on room air oxygen. The patient is afebrile. The patient continues to be on Decadron. He is on Lovenox for DVT prophylaxis. Objective - Vital Signs Vital signs: Vital Signs Temp 98.2 F 06/18/23 09:14 Pulse 72 06/18/23 09:14 Resp 16 06/18/23 09:14 BP 126/71 06/18/23 09:14 Pulse Ox 96 06/18/23 09:14 FiO2 Intake & Output 06/17/23 06/18/23 06/18/23 18:59 06:59 18:59 Intake Total 368 10 128 Output Total 1450 Balance -1082 10 128 Intake: IV 10 10 10 Invasive Line 2 10 10 10 Oral 358 118 Output: Urine 1450 Other: Voiding Method External Catheter External Catheter External Catheter # Bowel Movements 1 1 - Exam No acute distress, oriented 3. No respiratory distress. Currently on RA HEENT examination is grossly unremarkable. Mucous membranes are moist. No oral lesions. Neck supple. Full range of motion. No adenopathy thyromegaly or neck vein distention. Cardiovascular examination reveals regular rhythm rate. S1-S2 normal. No S3 or S4. No discernible murmur noted. Heart sounds are distant. Heart rate 52 bpm. Lungs reveal mostly clear breath sounds. Minimal scattered rhonchi. No wheezes or crackles. Breath sounds equal. Abdomen soft bowel sounds are heard. No masses or tenderness. Extremities are intact. No cyanosis clubbing or edema. Skin is without rash or lesion. Neurologic examination is brief but nonfocal. - Labs CBC & Chem 7: 06/17/23 08:06 06/17/23 08:06 Labs: Abnormal Lab Results - Last 24 Hours (Table) 06/17/23 06/17/23 06/18/23 Range/Units 12:05 16:54 11:28 POC Glucose (mg/dL) 125 H 155 H 149 H (70-110) mg/dL Assessment and Plan Plan: Acute coronavirus infection, without coronavirus associated pneumonia. The patient is currently on room air oxygen. Chest x-ray showed no clear evidence of any pneumonia. The chest x-ray from 2 days. The patient has no issues with oxygenation and the patient is on room air oxygen. No signs of any respiratory insufficiency at this point in time. The patient is on Decadron 6 mg IV every 24 hours. No changes since yesterday Acute non-ST segment elevation myocardial infarction. This is thought to be related to type II coronary ischemia Coronary artery disease, S/P stent placement. Previous cardiac catheterization from May 2022 showed that the patient has undergone PCI to LAD and he has a moderate in-stent stenosis of the RCA stent a moderate circumflex disease. History of myocardial infarction. History of hyperlipidemia. History of hypertension. History of osteoarthritis. History of pneumonia. Prior history of tobacco use. Plan: the patient is stable awaiting his discharge tomorrow with manner and this will likely happen today No change since yesterday Overall pulmonary status is stable We'll complete the course of Decadron Patient is currently on room air oxygen. The chest x-ray shows no acute consolidation or airspace disease, repeat chest x-ray was also clear Echocardiogram from 03/05/2023 showed a preserved LV function with an ejection fraction of 55-60% IV fluids to KVO Blood pressure is elevated and the patient is currently on lisinopril and the dose was increased up to 20 mg and is also on Inderal and imdur Continue blood pressure monitoring Continue multiple vitamin supplements We'll continue to follow Possible home today to complete a course of a total of 10 day course of Decadron on an outpatient basis. I came to find other the patient is nonambulatory at this point in time. He is extremely weak and he cannot walk. His also has Covid 19. Patient is going to [facility]
[2023-06-18 16:30] LABS: Glucose,Whole Blood 228 mg/dL (70-110)
[2023-06-18 20:20] LABS: Glucose,Whole Blood 132 mg/dL (70-110)
[2023-06-18 21:02] LABS: Glucose,Whole Blood 127 mg/dL (70-110)
[2023-06-18 23:34] LABS: African American GFR (CKD) 71 (>60 ml/min/1.73 sqM); Anion Gap 10 mmol/L; Blood Urea Nitrogen 44 mg/dL (9-20); Calcium 8.6 mg/dL (8.4-10.2); Carbon Dioxide 20 mmol/L (22-30); Chloride 104 mmol/L (98-107); Glucose 133 mg/dL (74-99); Magnesium 1.9 mg/dL (1.6-2.3); Non-African American GFR(CKD) 61 (>60 ml/min/1.73 sqM); Potassium 4.4 mmol/L (3.5-5.1); Sodium 134 mmol/L (137-145)
[2023-06-19 05:55] LABS: Glucose,Whole Blood 126 mg/dL (70-110)
[2023-06-19] MEDS: INSULIN ASPART (NovoLOG) 100 UNIT/ML VIAL SQ SCH ×3 (06:06→17:44)
[2023-06-19] MEDS: PANTOPRAZOLE 40 MG TABLET PO SCH (06:09)
[2023-06-19 08:05] LABS: Basophils # (A) 0.1 k/uL (0-0.2); Basophils % (A) 1 %; Eosinophils # (A) 0.1 k/uL (0-0.7); Eosinophils % (A) 1 %; HCT 42.4 % (39.0-53.0); HGB 14.3 gm/dL (13.0-17.5); Lymphocytes # (A) 4.5 k/uL (1.0-4.8); Lymphocytes % (A) 31 %; MCH 32.6 pg (25.0-35.0); MCHC 33.7 g/dL (31.0-37.0); MCV 96.8 fL (80.0-100.0); Mean Platelet Volume 7.6; Monocytes # (A) 0.9 k/uL (0-1.0); Monocytes % (A) 6 %; Neutrophils # (A) 8.6 k/uL (1.3-7.7); Neutrophils % (A) 59 %; Platelet Count 253 k/uL (150-450); RBC 4.39 m/uL (4.30-5.90); RDW 12.9 % (11.5-15.5); WBC 14.4 k/uL (3.8-10.6)
[2023-06-19 08:25] LABS: ALT 50 U/L (4-49); AST 30 U/L (17-59); African American GFR (CKD) 88 (>60 ml/min/1.73 sqM); Albumin 2.9 g/dL (3.5-5.0); Albumin/Globulin Ratio 1.2; Alkaline Phosphatase 67 U/L (38-126); Anion Gap 10 mmol/L; Blood Urea Nitrogen 40 mg/dL (9-20); Calcium 8.6 mg/dL (8.4-10.2); Carbon Dioxide 20 mmol/L (22-30); Chloride 105 mmol/L (98-107); Globulin 2.4 g/dL; Glucose 116 mg/dL (74-99); Non-African American GFR(CKD) 76 (>60 ml/min/1.73 sqM); Potassium 4.1 mmol/L (3.5-5.1); Sodium 135 mmol/L (137-145); Total Bilirubin 0.7 mg/dL (0.2-1.3); Total Protein 5.3 g/dL (6.3-8.2)
[2023-06-19] MEDS: ALBUTEROL HFA INHALER INHALATION SCH ×3 (09:11→15:54)
--- NOTE | 2023-06-19 10:08 | P.PN ---
Subjective Progress Note Date: 06/17/23 HISTORY OF PRESENT ILLNESS: This is an 88-year-old male patient of eduardo and Dr. Myers with a past medical history coronary artery disease status post PCI of the LAD and RCA, history of hypertension, hyperlipidemia BPH, neck and back surgeries for degenerative arthritis, patient was hospitalized at [facility] in 05/31/2023 and he was found to have a significant stenosis of the proximal LAD after heart cath physician that was done by Dr. Quintana, he underwent left heart catheterization with PCI of the proximal LAD using a size stents, and he did have a balloon angioplasty for dilatation as well, patient has done well over the last few months, patient presented to the emergency department at [facility] last night because of generalized fatigue and weakness and not able to do anything, unfortunately his who is the primary caregiver for him was diagnosed with covert and she has been in bed due to her illness, so he was brought to the ER for evaluation, he was tested positive for COVID-19, and the patient was found to have a slight elevation of the troponin I suggestive of a type II GA without evidence of non-ST elevation GA, and because of the presentation he was admitted to the hospital will be seen in consultation by pulmonary and cardiology, patient was started initially on heparin drip, therefore this will be discontinued and he will be placed on Lovenox 40 mg subcutaneously every 24 hours for DVT prophylaxis, patient will be maintained on vitamin D3 1000 unit once every day, vitamin C 500 mg orally once every day, and zinc 50 minute gram orally once every day, I will start the patient on dexamethasone 6 mg IV push every 24 hours. 06/13: Patient has been transferred up to the cardiac stepdown unit. He has been seen by cardiology while in the emergency center this morning for recheck and advised to continue heparin drip for 1 more day, 1 dose of IV Lasix 40 mg given an echocardiogram is pending. Patient is currently denying having any chest pain or shortness of breath. No cough or wheezing. No nausea or vomiting. Patient has been afebrile, heart rate in the 50s and 60s, blood pressure 136/82, pulse ox 95% on room air. 06/14: Patient believes his breathing status is improving. He denies having any cough no chest pain. He has been on a heparin drip and cardiology discontinue that today. Patient remains afebrile, heart rate in the 50s and 60s, blood pressure 119/58, pulse ox 95% on room air. Repeat blood work reveals WBC 17, hemoglobin 15, sodium 134, potassium 3.8, BUN 32 creatinine 0.98. Echocardiogram reveals normal LV function. Mild aortic stenosis and mild aortic regurgitation. Sclerotic aortic valve. Cardiology is recommending continuing aspirin 81 mg, statin, Imdur lisinopril and Inderal. Patient is also followed by pulmonary medicine. Anticipate probable discharge home tomorrow. Social work is following for discharge planning. 06/15: Patient complains of cough. No chest pain. No shortness of breath. He has been afebrile. Blood pressure 114/56, heart rate 53, pulse ox 96% on room air. Repeat blood work reveals hemoglobin 13.5, WBC 13.5. Sodium 136, potassium 3.7, BUN 35 creatinine 0.94. Blood sugar 178. Has been seen by cardiology and cleared for discharge. Patient has also been seen by Dr. Soria this morning and cleared for discharge. A PT OT consult have been added and there is concern about him going home and being safe. artist's manager is working on discharge planning. Patient is to follow up with Dr. Myers in 2-3 weeks. We will plan to transfer the patient to [facility] until discharge plan is completed. 06/16: Patient worked with physical therapy this morning and already has some improvement of his strength. He is still at risk for fall if he were discharged home. He continues to have balance issues as well and strength issues. Patient has been afebrile, heart rate 65, blood pressure 165/72, pulse ox 96% on room air. Blood glucose running between 130s and 153. Patient remains on IV dexamethasone which will decrease to 4 mg. He is also on the vitamin cocktail. Discharge planning is for subacute rehab and patient may be expected at [facility] and currently we are waiting for insurance authorization. Patient may be transferred to [facility] once bed is available. 06/17: Patient is laying down in bed in no apparent distress, he denies any chest pain, he is less short of breath, he is still did not receive any authorization to go to the alf, patient would want go to to [facility] I spoke with the patient's and his daughters about not able to to transfer the patient to get the authorization. REVIEW OF SYSTEMS: Constitutional: No documented fever, no chills, no night sweats. No weight change. positive for weakness, fatigue or lethargy. No daytime sleepiness. HEENT: No headache. No blurred vision or double vision, no loss of vision. No loss of Hearing, no ringing in the ears, no dizziness. No nasal drainage or congestion. No epistaxis. No sore throat. Lungs: Positive for shortness of breath, no cough, no sputum production. No wheezing. Reports dyspnea with activity. Cardiovascular: No chest pain, no lower extremity edema. No palpitations. No paroxysmal nocturnal dyspnea. No orthopnea. No lightheadedness or dizziness. No syncopal episodes. Abdominal: Reports no abdominal pain. No nausea, vomiting. No diarrhea. No constipation. No bloody or tarry stools reports loss of appetite. Genitourinary: No dysuria, increased frequency, urgency. No urinary retention. Musculoskeletal: No myalgias. + muscle weakness,positive for gait dysfunction, positive for frequent falls, positive for back pain, and neck pain. Integumentary: No wounds, no lesions. No rash or pruritus. No unusual bruisi ng. No change in hair or nails. Neurologic: No aphasia. No facial droop. No change in mentation. No head injury. No headache. No paralysis. No paresthesia. Psychiatric: positive for depression. No anxiety. positive for mood swings. Endocrine: No abnormal blood sugars. No weight change. PHYSICAL EXAMINATION: General: 88-year-old male lying down in bed in no apparent distress. HEENT: Head is atraumatic, normocephalic, pupils were equal round reactive to light and recommendation, extraocular muscle movement were intact, sclera nonicteric, conjunctivae were pale, mucous membranes of the mouth are somewhat dry. Neck: Supple, no JVP, normal carotid upstroke bilaterally, no lymphadenopathy. Chest: Decreased breath sounds at the bases, few rhonchi, no extremity wheezes, no chest wall tenderness, no intercostal retractions. Heart: First heart sound is normal, second heart sounds normal there is systolic ejection murmur 2/6 located in the left sternal border. Abdomen: Soft, nontender, nondistended, positive bowel sounds. Extremities: There is no edema no calf tenderness DP +2 bilaterally. Neurologic examination: Patient is awake alert and oriented X 3, cranial nerves II-12 appear grossly intact, muscle power were 5 out of 5 in upper extremities and 5 out of 5 in bilateral lower extremities, deep tendon reflexes normal bilaterally. ASSESSMENT AND PLAN: 1. COVID-19 infection. And tinea droplet precautions, continue patient on dexamethasone 4 mg po daily, continue oxygen support as needed, continue vitamin D3 2000 units once every day, vitamin C 500 mg once every day, 650 mg once every day, pulmonary consultation appreciated. 2. Myocardial injury with type II GA due to COVID-19 infection without evidence of non-ST elevation GA, continue patient on aspirin 81 mg once every day, atorvastatin 80 mg once every day, isosorbide dinitrate 20 mg orally twice every day. 3. History of CAD post-PCI of the LAD and RCA. Last heart catheterization November 2019 showed stable disease. Continue aspirin 81 mg once every day, Lipitor 80 mg once every day, lisinopril 10 mg every day, isosorbide 20 mg orally twice every day. 4. Hypertension and hypertensive cardiovascular disease. Continue lisinopril 10 mg orally once every day. 5. Sinus bradycardia with significant first-degree AV block. Monitor the patient overnight. 6. Hyperlipidemia. Continue Lipitor 80 mg once every day, keep LDL cholesterol 55-70. 7. Enlarged prostate continue Flomax 0.4 mg once every day. 8. 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 Continue with physical therapy as needed. 9. Chronic diastolic heart failure. Continue patient on lisinopril 10 mg orally once every day, continue with Lasix 40 mg orally once every day along with potassium supplement. 10. DVT prophylaxis. Lovenox 40 mg subcutaneously every 24 hours as well as bilateral knee-high JENNIFER hose. 11. GI prophylaxis. Continue Protonix 40 mg orally once every day. 12. Patient is full code. 13. Await the prior authorization for the patient to go to subacute rehabilitation of Tuesday. Objective - Vital Signs Vital signs: Vital Signs Temp 98.2 F 06/18/23 09:14 Pulse 72 06/18/23 09:14 Resp 16 06/18/23 09:14 BP 126/71 06/18/23 09:14 Pulse Ox 96 06/18/23 09:14 FiO2 Intake & Output 06/17/23 06/18/23 06/18/23 18:59 06:59 18:59 Intake Total 368 10 118 Output Total 1450 Balance -1082 10 118 Intake: IV 10 10 Invasive Line 2 10 10 Oral 358 118 Output: Urine 1450 Other: Voiding Method External Catheter External Catheter # Bowel Movements 1 1 - Labs CBC & Chem 7: 06/19/23 07:16 06/19/23 07:16 Labs: Abnormal Lab Results - Last 24 Hours (Table) 06/17/23 06/17/23 Range/Units 12:05 16:54 POC Glucose (mg/dL) 125 H 155 H (70-110) mg/dL
--- NOTE | 2023-06-19 10:09 | P.PN ---
Subjective Progress Note Date: 06/18/23 HISTORY OF PRESENT ILLNESS: This is an 88-year-old male patient of eduardo and Dr. Myers with a past medical history coronary artery disease status post PCI of the LAD and RCA, history of hypertension, hyperlipidemia BPH, neck and back surgeries for degenerative arthritis, patient was hospitalized at [facility] in 05/31/2023 and he was found to have a significant stenosis of the proximal LAD after heart cath physician that was done by Dr. Quintana, he underwent left heart catheterization with PCI of the proximal LAD using a size stents, and he did have a balloon angioplasty for dilatation as well, patient has done well over the last few months, patient presented to the emergency department at [facility] last night because of generalized fatigue and weakness and not able to do anything, unfortunately his who is the primary caregiver for him was diagnosed with covert and she has been in bed due to her illness, so he was brought to the ER for evaluation, he was tested positive for COVID-19, and the patient was found to have a slight elevation of the troponin I suggestive of a type II NJ without evidence of non-ST elevation NJ, and because of the presentation he was admitted to the hospital will be seen in consultation by pulmonary and cardiology, patient was started initially on heparin drip, therefore this will be discontinued and he will be placed on Lovenox 40 mg subcutaneously every 24 hours for DVT prophylaxis, patient will be maintained on vitamin D3 1000 unit once every day, vitamin C 500 mg orally once every day, and zinc 50 minute gram orally once every day, I will start the patient on dexamethasone 6 mg IV push every 24 hours. 06/13: Patient has been transferred up to the cardiac stepdown unit. He has been seen by cardiology while in the emergency center this morning for recheck and advised to continue heparin drip for 1 more day, 1 dose of IV Lasix 40 mg given an echocardiogram is pending. Patient is currently denying having any chest pain or shortness of breath. No cough or wheezing. No nausea or vomiting. Patient has been afebrile, heart rate in the 50s and 60s, blood pressure 136/82, pulse ox 95% on room air. 06/14: Patient believes his breathing status is improving. He denies having any cough no chest pain. He has been on a heparin drip and cardiology discontinue that today. Patient remains afebrile, heart rate in the 50s and 60s, blood pressure 119/58, pulse ox 95% on room air. Repeat blood work reveals WBC 17, hemoglobin 15, sodium 134, potassium 3.8, BUN 32 creatinine 0.98. Echocardiogram reveals normal LV function. Mild aortic stenosis and mild aortic regurgitation. Sclerotic aortic valve. Cardiology is recommending continuing aspirin 81 mg, statin, Imdur lisinopril and Inderal. Patient is also followed by pulmonary medicine. Anticipate probable discharge home tomorrow. Social work is following for discharge planning. 06/15: Patient complains of cough. No chest pain. No shortness of breath. He has been afebrile. Blood pressure 114/56, heart rate 53, pulse ox 96% on room air. Repeat blood work reveals hemoglobin 13.5, WBC 13.5. Sodium 136, potassium 3.7, BUN 35 creatinine 0.94. Blood sugar 178. Has been seen by cardiology and cleared for discharge. Patient has also been seen by Dr. Soria this morning and cleared for discharge. A PT OT consult have been added and there is concern about him going home and being safe. field staff manager is working on discharge planning. Patient is to follow up with Dr. Myers in 2-3 weeks. We will plan to transfer the patient to [facility] until discharge plan is completed. 06/16: Patient worked with physical therapy this morning and already has some improvement of his strength. He is still at risk for fall if he were discharged home. He continues to have balance issues as well and strength issues. Patient has been afebrile, heart rate 65, blood pressure 165/72, pulse ox 96% on room air. Blood glucose running between 130s and 153. Patient remains on IV dexamethasone which will decrease to 4 mg. He is also on the vitamin cocktail. Discharge planning is for subacute rehab and patient may be expected at [facility] and currently we are waiting for insurance authorization. Patient may be transferred to [facility] once bed is available. 06/17: Patient is laying down in bed in no apparent distress, he denies any chest pain, he is less short of breath, he is still did not receive any authorization to go to the custodial, patient would want go to to [facility] I spoke with the patient's and his daughters about not able to to transfer the patient to get the authorization. 06/18: Patient is sitting up in bed in no apparent distress, he continues to be free of oxygen at this time, he would be moved to the medical surgical floor, he denies any chest pain, he has less coughing, no abdominal pain, no nausea no vomiting or diarrhea, we are still awaiting the final authorization for the patient to go to subacute rehab in addition continue physical therapy when the patient the hospital. REVIEW OF SYSTEMS: Constitutional: No documented fever, no chills, no night sweats. No weight change. positive for weakness, fatigue or lethargy. No daytime sleepiness. HEENT: No headache. No blurred vision or double vision, no loss of vision. No loss of Hearing, no ringing in the ears, no dizziness. No nasal drainage or congestion. No epistaxis. No sore throat. Lungs: Positive for shortness of breath, no cough, no sputum production. No wheezing. Reports dyspnea with activity. Cardiovascular: No chest pain, no lower extremity edema. No palpitations. No paroxysmal nocturnal dyspnea. No orthopnea. No lightheadedness or dizziness. No syncopal episodes. Abdominal: Reports no abdominal pain. No nausea, vomiting. No diarrhea. No constipation. No bloody or tarry stools reports loss of appetite. Genitourinary: No dysuria, increased frequency, urgency. No urinary retention. Musculoskeletal: No myalgias. + muscle weakness,positive for gait dysfunction, positive for frequent falls, positive for back pain, and neck pain. Integumentary: No wounds, no lesions. No rash or pruritus. No unusual bruising. No change in hair or nails. Neurologic: No aphasia. No facial droop. No change in mentation. No head injury. No headache. No paralysis. No paresthesia. Psychiatric: positive for depression. No anxiety. positive for mood swings. Endocrine: No abnormal blood sugars. No weight change. PHYSICAL EXAMINATION: General: 88-year-old male lying down in bed in no apparent distress. HEENT: Head is atraumatic, normocephalic, pupils were equal round reactive to light and recommendation, extraocular muscle movement were intact, sclera nonicteric, conjunctivae were pale, mucous membranes of the mouth are somewhat dry. Neck: Supple, no JVP, normal carotid upstroke bilaterally, no lymphadenopathy. Chest: Decreased breath sounds at the bases, few rhonchi, no extremity wheezes, no chest wall tenderness, no intercostal retractions. Heart: First heart sound is normal, second heart sounds normal there is systolic ejection murmur 2/6 located in the left sternal border. Abdomen: Soft, nontender, nondistended, positive bowel sounds. Extremities: There is no edema no calf tenderness DP +2 bilaterally. Neurologic examination: Patient is awake alert and oriented X 3, cranial nerves II-12 appear grossly intact, muscle power were 5 out of 5 in upper extremities and 5 out of 5 in bilateral lower extremities, deep tendon reflexes normal bilaterally. ASSESSMENT AND PLAN: 1. COVID-19 infection. And tinea droplet precautions, continue patient on dexamethasone 4 mg po daily, continue oxygen support as needed, continue vitamin D3 2000 units once every day, vitamin C 500 mg once every day, 650 mg once every day, pulmonary consultation appreciated. 2. 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 3. History of CAD post-PCI of the LAD and RCA. Last heart catheterization November 2019 showed stable disease. Continue aspirin 81 mg once every day, Lipitor 80 mg once every day, lisinopril 10 mg every day, isosorbide 20 mg orally twice every day. 4. Hypertension and hypertensive cardiovascular disease. Continue lisinopril 10 mg orally once every day. 5. Sinus bradycardia with significant first-degree AV block. Monitor the patient overnight. 6. Hyperlipidemia. Continue Lipitor 80 mg once every day, keep LDL cholesterol 55-70. 7. Enlarged prostate continue Flomax 0.4 mg once every day. 8. 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 Continue with physical therapy as needed. 9. Chronic diastolic heart failure. Continue patient on lisinopril 10 mg orally once every day, continue with Lasix 40 mg orally once every day along with potassium supplement. 10. DVT prophylaxis. Lovenox 40 mg subcutaneously every 24 hours as well as bilateral knee-high JENNIFER hose. 11. GI prophylaxis. Continue Protonix 40 mg orally once every day. 12. Patient is full code. 13. Await the prior authorization for the patient to go to subacute rehabilitation of Tuesday. Objective - Vital Signs Vital signs: Vital Signs Temp 98.2 F 06/18/23 09:14 Pulse 72 06/18/23 09:14 Resp 16 06/18/23 09:14 BP 126/71 06/18/23 09:14 Pulse Ox 96 06/18/23 09:14 FiO2 Intake & Output 06/17/23 06/18/23 06/18/23 18:59 06:59 18:59 Intake Total 368 10 118 Output Total 1450 Balance -1082 10 118 Intake: IV 10 10 Invasive Line 2 10 10 Oral 358 118 Output: Urine 1450 Other: Voiding Method External Catheter External Catheter # Bowel Movements 1 1 - Labs CBC & Chem 7: 06/19/23 07:16 06/19/23 07:16 Labs: Abnormal Lab Results - Last 24 Hours (Table) 06/17/23 06/17/23 Range/Units 12:05 16:54 POC Glucose (mg/dL) 125 H 155 H (70-110) mg/dL
[2023-06-19 10:50] LABS: Glucose,Whole Blood 126 mg/dL (70-110)
--- NOTE | 2023-06-19 10:59 | P.PN ---
Subjective Progress Note Date: 06/19/23 HISTORY OF PRESENT ILLNESS: This is an 88-year-old male patient of eduardo and Dr. Myers with a past medical history coronary artery disease status post PCI of the LAD and RCA, history of hypertension, hyperlipidemia BPH, neck and back surgeries for degenerative arthritis, patient was hospitalized at [facility] in 05/31/2023 and he was found to have a significant stenosis of the proximal LAD after heart cath physician that was done by Dr. Quintana, he underwent left heart catheterization with PCI of the proximal LAD using a size stents, and he did have a balloon angioplasty for dilatation as well, patient has done well over the last few months, patient presented to the emergency department at [facility] last night because of generalized fatigue and weakness and not able to do anything, unfortunately his who is the primary caregiver for him was diagnosed with covert and she has been in bed due to her illness, so he was brought to the ER for evaluation, he was tested positive for COVID-19, and the patient was found to have a slight elevation of the troponin I suggestive of a type II CT without evidence of non-ST elevation CT, and because of the presentation he was admitted to the hospital will be seen in consultation by pulmonary and cardiology, patient was started initially on heparin drip, therefore this will be discontinued and he will be placed on Lovenox 40 mg subcutaneously every 24 hours for DVT prophylaxis, patient will be maintained on vitamin D3 1000 unit once every day, vitamin C 500 mg orally once every day, and zinc 50 minute gram orally once every day, I will start the patient on dexamethasone 6 mg IV push every 24 hours. 06/13: Patient has been transferred up to the cardiac stepdown unit. He has been seen by cardiology while in the emergency center this morning for recheck and advised to continue heparin drip for 1 more day, 1 dose of IV Lasix 40 mg given an echocardiogram is pending. Patient is currently denying having any chest pain or shortness of breath. No cough or wheezing. No nausea or vomiting. Patient has been afebrile, heart rate in the 50s and 60s, blood pressure 136/82, pulse ox 95% on room air. 06/14: Patient believes his breathing status is improving. He denies having any cough no chest pain. He has been on a heparin drip and cardiology discontinue that today. Patient remains afebrile, heart rate in the 50s and 60s, blood pressure 119/58, pulse ox 95% on room air. Repeat blood work reveals WBC 17, hemoglobin 15, sodium 134, potassium 3.8, BUN 32 creatinine 0.98. Echocardiogram reveals normal LV function. Mild aortic stenosis and mild aortic regurgitation. Sclerotic aortic valve. Cardiology is recommending continuing aspirin 81 mg, statin, Imdur lisinopril and Inderal. Patient is also followed by pulmonary medicine. Anticipate probable discharge home tomorrow. Social work is following for discharge planning. 06/15: Patient complains of cough. No chest pain. No shortness of breath. He has been afebrile. Blood pressure 114/56, heart rate 53, pulse ox 96% on room air. Repeat blood work reveals hemoglobin 13.5, WBC 13.5. Sodium 136, potassium 3.7, BUN 35 creatinine 0.94. Blood sugar 178. Has been seen by cardiology and cleared for discharge. Patient has also been seen by Dr. Soria this morning and cleared for discharge. A PT OT consult have been added and there is concern about him going home and being safe. senior it project manager is working on discharge planning. Patient is to follow up with Dr. Myers in 2-3 weeks. We will plan to transfer the patient to [facility] until discharge plan is completed. 06/16: Patient worked with physical therapy this morning and already has some improvement of his strength. He is still at risk for fall if he were discharged home. He continues to have balance issues as well and strength issues. Patient has been afebrile, heart rate 65, blood pressure 165/72, pulse ox 96% on room air. Blood glucose running between 130s and 153. Patient remains on IV dexamethasone which will decrease to 4 mg. He is also on the vitamin cocktail. Discharge planning is for subacute rehab and patient may be expected at [facility] and currently we are waiting for insurance authorization. Patient may be transferred to [facility] once bed is available. 06/17: Patient is laying down in bed in no apparent distress, he denies any chest pain, he is less short of breath, he is still did not receive any authorization to go to the jail, patient would want go to to [facility] I spoke with the patient's and his daughters about not able to to transfer the patient to get the authorization. 06/18: Patient is sitting up in bed in no apparent distress, he continues to be free of oxygen at this time, he would be moved to the medical surgical floor, he denies any chest pain, he has less coughing, no abdominal pain, no nausea no vomiting or diarrhea, we are still awaiting the final authorization for the patient to go to subacute rehab in addition continue physical therapy when the patient the hospital. 06/19: Patient did have an episode of nonsustained V. tach yesterday, laboratory values were done including BMP and magnesium level, patient was completely at asymptomatic this point in time, he denies any chest pain or shortness breath, he is maintained on his current cardiac medication. REVIEW OF SYSTEMS: Constitutional: No documented fever, no chills, no night sweats. No weight change. positive for weakness, fatigue or lethargy. No daytime sleepiness. HEENT: No headache. No blurred vision or double vision, no loss of vision. No loss of Hearing, no ringing in the ears, no dizziness. No nasal drainage or congestion. No epistaxis. No sore throat. Lungs: Positive for shortness of breath, no cough, no sputum production. No wheezing. Reports dyspnea with activity. Cardiovascular: No chest pain, no lower extremity edema. No palpitations. No paroxysmal nocturnal dyspnea. No orthopnea. No lightheadedness or dizziness. No syncopal episodes. Abdominal: Reports no abdominal pain. No nausea, vomiting. No diarrhea. No constipation. No bloody or tarry stools reports loss of appetite. Genitourinary: No dysuria, increased frequency, urgency. No urinary retention. Musculoskeletal: No myalgias. + muscle weakness,positive for gait dysfunction, positive for frequent falls, positive for back pain, and neck pain. Integumentary: No wounds, no lesions. No rash or pruritus. No unusual bruising. No change in hair or nails. Neurologic: No aphasia. No facial droop. No change in mentation. No head injury. No headache. No paralysis. No paresthesia. Psychiatric: positive for depression. No anxiety. positive for mood swings. Endocrine: No abnormal blood sugars. No weight change. PHYSICAL EXAMINATION: General: 88-year-old male lying down in bed in no apparent distress. HEENT: Head is atraumatic, normocephalic, pupils were equal round reactive to light and recommendation, extraocular muscle movement were intact, sclera nonicteric, conjunctivae were pale, mucous membranes of the mouth are somewhat dry. Neck: Supple, no JVP, normal carotid upstroke bilaterally, no lymphadenopathy. Chest: Decreased breath sounds at the bases, few rhonchi, no extremity wheezes, no chest wall tenderness, no intercostal retractions. Heart: First heart sound is normal, second heart sounds normal there is systolic ejection murmur 2/6 located in the left sternal border. Abdomen: Soft, nontender, nondistended, positive bowel sounds. Extremities: There is no edema no calf tenderness DP +2 bilaterally. Neurologic examination: Patient is awake alert and oriented X 3, cranial nerves II-12 appear grossly intact, muscle power were 5 out of 5 in upper extremities and 5 out of 5 in bilateral lower extremities, deep tendon reflexes normal bilaterally. ASSESSMENT AND PLAN: 1. COVID-19 infection. And tinea droplet precautions, continue patient on dexamethasone 4 mg po daily, continue oxygen support as needed, continue vitamin D3 2000 units once every day, vitamin C 500 mg once every day, 650 mg once every day, pulmonary consultation appreciated. 2. Myocardial injury with type II CT due to COVID-19 infection without evidence of non-ST elevation CT, continue patient on aspirin 81 mg once every day, atorvastatin 80 mg once every day, isosorbide dinitrate 20 mg orally twice every day. 3. History of CAD post-PCI of the LAD and RCA. Last heart catheterization November 2019 showed stable disease. Continue aspirin 81 mg once every day, Lipitor 80 mg once every day, lisinopril 10 mg every day, isosorbide 20 mg orally twice every day. 4. Hypertension and hypertensive cardiovascular disease. Continue lisinopril 10 mg orally once every day. 5. Sinus bradycardia with significant first-degree AV block. Monitor the patient overnight. 6. Hyperlipidemia. Continue Lipitor 80 mg once every day, keep LDL cholesterol 55-70. 7. Enlarged prostate continue Flomax 0.4 mg once every day. 8. 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 Continue with physical therapy as needed. 9. Chronic diastolic heart failure. Continue patient on lisinopril 10 mg orally once every day, continue with Lasix 40 mg orally once every day along with potassium supplement. 10. DVT prophylaxis. Lovenox 40 mg subcutaneously every 24 hours as well as bilateral knee-high JENNIFER hose. 11. GI prophylaxis. Continue Protonix 40 mg orally once every day. 12. Nonsustained V. tach. Laboratory evaluation were okay patient is completely a sympathetic, echocardiogram showed normal ejection fraction with mild aortic stenosis and aortic regurgitation. 13. Await the prior authorization for the patient to go to subacute rehabilitation of Tuesday. Objective - Vital Signs Vital signs: Vital Signs Temp 97.6 F 06/19/23 08:00 Pulse 53 L 06/19/23 08:00 Resp 18 06/19/23 08:00 BP 166/68 06/19/23 08:00 Pulse Ox 98 06/19/23 08:00 FiO2 Intake & Output 06/18/23 06/19/23 06/19/23 18:59 06:59 18:59 Intake Total 246 10 Output Total 800 3200 Balance -554 -3190 Intake: IV 10 10 Invasive Line 2 10 10 Oral 236 Output: Urine 800 3200 Straight 1400 Other: Voiding Method External Catheter External Catheter # Bowel Movements 1 - Labs CBC & Chem 7: 06/19/23 07:16 06/19/23 07:16 Labs: Abnormal Lab Results - Last 24 Hours (Table) 06/18/23 06/18/23 06/18/23 Range/Units 11:28 16:28 20:18 WBC (3.8-10.6) k/uL Neutrophils # (1.3-7.7) k/uL Sodium (137-145) mmol/L Carbon Dioxide (22-30) mmol/L BUN (9-20) mg/dL Glucose (74-99) mg/dL POC Glucose (mg/dL) 149 H 228 H 132 H (70-110) mg/dL ALT (4-49) U/L Total Protein (6.3-8.2) g/dL Albumin (3.5-5.0) g/dL 06/18/23 06/18/23 06/19/23 Range/Units 21:01 22:22 05:53 WBC (3.8-10.6) k/uL Neutrophils # (1.3-7.7) k/uL Sodium 134 L (137-145) mmol/L Carbon Dioxide 20 L (22-30) mmol/L BUN 44 H (9-20) mg/dL Glucose 133 H (74-99) mg/dL POC Glucose (mg/dL) 127 H 126 H (70-110) mg/dL ALT (4-49) U/L Total Protein (6.3-8.2) g/dL Albumin (3.5-5.0) g/dL 06/19/23 06/19/23 Range/Units 07:16 07:16 WBC 14.4 H (3.8-10.6) k/uL Neutrophils # 8.6 H (1.3-7.7) k/uL Sodium 135 L (137-145) mmol/L Carbon Dioxide 20 L (22-30) mmol/L BUN 40 H (9-20) mg/dL Glucose 116 H (74-99) mg/dL POC Glucose (mg/dL) (70-110) mg/dL ALT 50 H (4-49) U/L Total Protein 5.3 L (6.3-8.2) g/dL Albumin 2.9 L (3.5-5.0) g/dL
[2023-06-19] MEDS: ASCORBIC ACID 500 MG TAB PO SCH ×2 (11:25→22:23)
[2023-06-19] MEDS: ASPIRIN 81 MG PO SCH (11:25)
[2023-06-19] MEDS: FINASTERIDE 5 MG TAB PO SCH (11:26)
[2023-06-19] MEDS: ZINC SULFATE 220 MG CAP PO SCH (11:26)
[2023-06-19] MEDS: lisinopriL 20 MG TAB PO SCH (11:26)
[2023-06-19] MEDS: TAMSULOSIN 0.4 MG CAP.ER.24H PO SCH (11:26)
[2023-06-19] MEDS: ATORVASTATIN 80 MG TAB PO SCH (11:26)
[2023-06-19] MEDS: FUROSEMIDE 40 MG TAB PO SCH (11:26)
[2023-06-19] MEDS: ENOXAPARIN 40 MG/0.4 ML SYRINGE SQ SCH (11:26)
[2023-06-19] MEDS: CHOLECALCIFEROL 25 MCG (1000 IU) TABLET PO SCH (11:26)
--- NOTE | 2023-06-19 12:37 | P.PN ---
Subjective Progress Note Date: 06/19/23 88-year-old male, seen in the emergency department, room 2. The patient was evaluated, on June 11, for complaints of generalized weakness, and mild shortness of breath. He apparently was feeling weak, and, fell, injuring his elbow. He apparently did not hit his head, and apparently did not have loss of consciousness. Apparently his was positive for coronavirus. He also tested positive. The patient does admit to some mild shortness of breath, cough and congestion. The patient appears not to have any respiratory distress at this time. The patient was on 2 L of oxygen. His troponins were elevated, and for that reason, he was on IV heparin. White count 8.8, hemoglobin 13.5, hematocrit 40, and platelet count 150,000. PTT is 116.2. Sodium 137, potassium 4, chlorides 108, CO2 18, BUN 20, and creatinine 0.83. Glucose 127. Troponins were 0.099, 0.108, and 0.174. He was negative for influenza A and influenza B, and respiratory syncytial virus. He did test positive for coronavirus. The patient's chest x-ray was normal without any acute infiltrate. On today's evaluation of 06/13/2023, I'm seeing the patient for a follow-up. He is currently on room and oxygen. No major respiratory difficulties. The patient was tested positive for Covid 19. He has received previous vaccination. No major respiratory distress at this point in time.The physical is at 12.9 with a hemoglobin of 14, coagulation profile is normal and the patient is currently off the IV heparin as the PTT is quite elevated. Troponins are 0.12 respectively. History of any chest pain. On 06/14/2023, the patient remains on room air oxygen. I had a discussion with the nursing staff and I was told that he was having some symptoms suggestive of sundowner. Otherwise, he is stable. Extremities. No focal neurological deficits. He has a Covid 19 infection. His blood work from 06/13/2023 was noted. His magnesium level is at 1.8. Rest of the CBC is essentially within normal limits. He did have some mild elevation of troponin with a peak troponin level of 0.174. He was seen by cardiology and he was kept on IV heparin for another 24 hours. He was told to have a type II myocardial injury due to Covid 19 infection without evidence of any ST segment changes. He was also given a dose of Lasix yesterday. Is known to have coronary artery disease with previous PCI to LAD and RCA. His last cardiac catheterization was noted. 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 His other comorbidities include hypertension, hyperlipidemia, BPH, diastolic heart failure and degenerative cervical disc disease. His repeat chest x-ray from today is showing no acute abnormalities. Instruments and platelets are seen in his cervical spine and the lower thoracic upper lumbar spine. On 06/15/2023, no new complaints and the patient is currently on room air oxygen. No significant respiratory difficulties. No cough or sputum production. No other significant events overnight.No new labs are available from today. The patient is currently on Decadron. The patient is on Lovenox for DVT prophylaxis. The patient is currently off IV heparin. He remains on aspirin. On 06/16/2023, the patient continues to be on Decadron. He remains on room air oxygen. No altered mentation. No chest pain. No cough or congestion. He remains on room air oxygen. He is clinically stable. He is hemodynamically stable. Labs from yesterday were all stable. Slightly hypertensive and manager assembly on the case regarding blood pressure management. He is currently on interview or, lisinopril dose was increased up to 20 mg and is also on Inderal. Discharge planning is in progress. The patient is being considered to be going to [facility]. on today's evaluation of 06/17/2023, the patient is doing well. No specific complaints. He is still awaiting his discharge to [facility]. No respiratory difficulties. Remains on Decadron.The white cycles of 12.7 with a hemoglobin of 14 and a platelet count of 206. BUN is at 42 with a creatinine 0.9 and a sodium level is at 137. On 06/18/2023, no new complaints and the patient's condition is stable, room air oxygen awaiting [facility] transfer, pulse ox is 96% on room air oxygen. The patient is afebrile. The patient continues to be on Decadron. He is on Lovenox for DVT prophylaxis. 06/19/2023, patient's overall respiratory status is stable. He apparently had an episode of nonsustained V. tach. The patient was asymptomatic. Moderate tricuspid abnormalities. The white cell cause of 14, amylase 14, BUN is at 40 with a creatinine of 0.9 and sodium levels of 135. Objective - Vital Signs Vital signs: Vital Signs Temp 97.6 F 06/19/23 08:00 Pulse 53 L 06/19/23 08:00 Resp 18 06/19/23 08:00 BP 166/68 06/19/23 08:00 Pulse Ox 98 06/19/23 08:00 FiO2 Intake & Output 06/18/23 06/19/23 06/19/23 18:59 06:59 18:59 Intake Total 246 10 Output Total 800 3200 Balance -554 -3190 Intake: IV 10 10 Invasive Line 2 10 10 Oral 236 Output: Urine 800 3200 Straight 1400 Other: Voiding Method External Catheter External Catheter # Bowel Movements 1 - Exam No acute distress, oriented 3. No respiratory distress. Currently on RA HEENT examination is grossly unremarkable. Mucous membranes are moist. No oral lesions. Neck supple. Full range of motion. No adenopathy thyromegaly or neck vein distention. Cardiovascular examination reveals regular rhythm rate. S1-S2 normal. No S3 or S4. No discernible murmur noted. Heart sounds are distant. Heart rate 52 bpm. Lungs reveal mostly clear breath sounds. Minimal scattered rhonchi. No wheezes or crackles. Breath sounds equal. Abdomen soft bowel sounds are heard. No masses or tenderness. Extremities are intact. No cyanosis clubbing or edema. Skin is without rash or lesion. Neurologic examination is brief but nonfocal. - Labs CBC & Chem 7: 06/19/23 07:16 06/19/23 07:16 Labs: Abnormal Lab Results - Last 24 Hours (Table) 06/18/23 06/18/23 06/18/23 Range/Units 11:28 16:28 20:18 WBC (3.8-10.6) k/uL Neutrophils # (1.3-7.7) k/uL Sodium (137-145) mmol/L Carbon Dioxide (22-30) mmol/L BUN (9-20) mg/dL Glucose (74-99) mg/dL POC Glucose (mg/dL) 149 H 228 H 132 H (70-110) mg/dL ALT (4-49) U/L Total Protein (6.3-8.2) g/dL Albumin (3.5-5.0) g/dL 06/18/23 06/18/23 06/19/23 Range/Units 21:01 22:22 05:53 WBC (3.8-10.6) k/uL Neutrophils # (1.3-7.7) k/uL Sodium 134 L (137-145) mmol/L Carbon Dioxide 20 L (22-30) mmol/L BUN 44 H (9-20) mg/dL Glucose 133 H (74-99) mg/dL POC Glucose (mg/dL) 127 H 126 H (70-110) mg/dL ALT (4-49) U/L Total Protein (6.3-8.2) g/dL Albumin (3.5-5.0) g/dL 06/19/23 06/19/23 06/19/23 Range/Units 07:16 07:16 10:43 WBC 14.4 H (3.8-10.6) k/uL Neutrophils # 8.6 H (1.3-7.7) k/uL Sodium 135 L (137-145) mmol/L Carbon Dioxide 20 L (22-30) mmol/L BUN 40 H (9-20) mg/dL Glucose 116 H (74-99) mg/dL POC Glucose (mg/dL) 126 H (70-110) mg/dL ALT 50 H (4-49) U/L Total Protein 5.3 L (6.3-8.2) g/dL Albumin 2.9 L (3.5-5.0) g/dL Assessment and Plan Plan: Acute coronavirus infection, without coronavirus associated pneumonia. The patient is currently on room air oxygen. Chest x-ray showed no clear evidence of any pneumonia. The chest x-ray from 2 days. The patient has no issues with oxygenation and the patient is on room air oxygen. No signs of any respiratory insufficiency at this point in time. The patient is on Decadron 6 mg IV every 24 hours. No changes Acute non-ST segment elevation myocardial infarction. This is thought to be related to type II coronary ischemia Nonsustained VT, asymptomatic with a preserved LV function Coronary artery disease, S/P stent placement. Previous cardiac catheterization from May 2022 showed that the patient has undergone PCI to LAD and he has a moderate in-stent stenosis of the RCA stent a moderate circumflex disease. History of myocardial infarction. History of hyperlipidemia. History of hypertension. History of osteoarthritis. History of pneumonia. Prior history of tobacco use. Plan: the patient is stable awaiting his discharge, from the pulmonary standpoint Cardiac clearance to be given separately No change since yesterday Overall pulmonary status is stable We'll complete the course of Decadron Patient is currently on room air oxygen. The chest x-ray shows no acute consolidation or airspace disease, repeat chest x-ray was also clear Echocardiogram from 03/05/2023 showed a preserved LV function with an ejection fraction of 55-60% IV fluids to KVO Blood pressure is elevated and the patient is currently on lisinopril and the dose was increased up to 20 mg and is also on Inderal and imdur Continue blood pressure monitoring Continue multiple vitamin supplements We'll continue to follow Possible home today to complete a course of a total of 10 day course of Decadron on an outpatient basis. I came to find other the patient is nonambulatory at this point in time. He is extremely weak and he cannot walk. His also has Covid 19. [facility] we'll sign off the case
[2023-06-19] MEDS: ISOSORBIDE MONONITRATE 20 MG TAB PO SCH ×2 (15:54→22:23)
[2023-06-19] MEDS: PROPRANOLOL 10 MG TAB PO SCH (15:54)
[2023-06-19] MEDS: dexAMETHasone 4 MG TAB PO SCH (15:54)
[2023-06-19 16:30] LABS: Glucose,Whole Blood 214 mg/dL (70-110)
[2023-06-19] MEDS ORDERED: SODIUM CHLORIDE 0.9% 500 ML 500 ML IV ONE ×2 (19:16→19:56)
[2023-06-19 19:35] LABS: Glucose,Whole Blood 117 mg/dL (70-110)
[2023-06-19] MEDS ORDERED: DILTIAZEM 125 MG in SODIUM CHLORIDE 0.9% 100 ML IV SCH (20:45)
[2023-06-19] MEDS ORDERED: NOREPINEPHRINE 4 MG in SODIUM CHLORIDE 0.9% 250 ML IV SCH (20:45)
[2023-06-19] MEDS ORDERED: HEPARIN SODIUM 1,000 UN/ML (10ML VL) IV PRN (22:40)
[2023-06-19 23:09] LABS: HCT 44.2 % (39.0-53.0); MCH 32.4 pg (25.0-35.0); MCV 95.1 fL (80.0-100.0); Mean Platelet Volume 7.4; Platelet Count 362 k/uL (150-450); RBC 4.64 m/uL (4.30-5.90); RDW 12.8 % (11.5-15.5); WBC 23.9 k/uL (3.8-10.6)
[2023-06-19 23:52] LABS: Band Neutrophils % 2 %; Lymphocytes # (M) 6.45 k/uL (1.0-4.8); Monocytes # (M) 0.24 k/uL (0-1.0); Neutrophils % (M) 70 %; Nucleated Red Blood Cells 0 /100 WBC (0-0); Total Cells Counted 100
[2023-06-20] MEDS ORDERED: HEPARIN SODIUM 1,000 UN/ML (10ML VL) IV PRN (00:04)
[2023-06-20] MEDS ORDERED: HEPARIN SODIUM 1,000 UN/ML (10ML VL) IV ONE (00:04)
[2023-06-20] MEDS ORDERED: HEPARIN SOD,PORK IN 0.45% NACL 25,000 UNIT in 0.45% NACL 1 250ML.BAG IV SCH (00:15)
[2023-06-20] MEDS: ALBUTEROL HFA INHALER INHALATION SCH ×5 (00:53→21:09)
[2023-06-20 06:57] LABS: Glucose,Whole Blood 164 mg/dL (70-110)
[2023-06-20] MEDS: PANTOPRAZOLE 40 MG TABLET PO SCH (07:12)
[2023-06-20] MEDS: INSULIN ASPART (NovoLOG) 100 UNIT/ML VIAL SQ SCH ×3 (07:12→18:16)
[2023-06-20 08:05] LABS: Basophils # (A) 0.1 k/uL (0-0.2); Basophils % (A) 0 %; Eosinophils # (A) 0.1 k/uL (0-0.7); Eosinophils % (A) 0 %; HCT 47.5 % (39.0-53.0); HGB 15.9 gm/dL (13.0-17.5); Lymphocytes # (A) 6.3 k/uL (1.0-4.8); Lymphocytes % (A) 34 %; MCH 32.6 pg (25.0-35.0); MCHC 33.4 g/dL (31.0-37.0); MCV 97.8 fL (80.0-100.0); Mean Platelet Volume 7.2; Monocytes # (A) 0.7 k/uL (0-1.0); Monocytes % (A) 4 %; Neutrophils % (A) 60 %; Platelet Count 334 k/uL (150-450); RBC 4.86 m/uL (4.30-5.90); RDW 12.9 % (11.5-15.5); WBC 18.3 k/uL (3.8-10.6)
[2023-06-20 08:23] LABS: INR 0.9 (<1.2); Partial Thromboplastin Time 51.7 sec (22.0-30.0); Prothrombin Time 10.4 sec (10.0-12.5)
[2023-06-20] MEDS: ASPIRIN 81 MG PO SCH (09:01)
[2023-06-20] MEDS: ZINC SULFATE 220 MG CAP PO SCH (09:01)
[2023-06-20] MEDS: lisinopriL 20 MG TAB PO SCH (09:01)
[2023-06-20] MEDS: ATORVASTATIN 80 MG TAB PO SCH (09:01)
[2023-06-20] MEDS: ASCORBIC ACID 500 MG TAB PO SCH ×2 (09:01→20:45)
[2023-06-20] MEDS: FUROSEMIDE 40 MG TAB PO SCH (09:01)
[2023-06-20] MEDS: ISOSORBIDE MONONITRATE 20 MG TAB PO SCH ×2 (09:01→20:46)
[2023-06-20] MEDS: PROPRANOLOL 10 MG TAB PO SCH (09:01)
[2023-06-20] MEDS: TAMSULOSIN 0.4 MG CAP.ER.24H PO SCH (09:01)
[2023-06-20] MEDS: CHOLECALCIFEROL 25 MCG (1000 IU) TABLET PO SCH (09:01)
[2023-06-20] MEDS: dexAMETHasone 4 MG TAB PO SCH (09:01)
[2023-06-20] MEDS: FINASTERIDE 5 MG TAB PO SCH (10:57)
[2023-06-20 11:28] VITALS: BMI 23.4
[2023-06-20 12:18] LABS: Glucose,Whole Blood 220 mg/dL (70-110)
--- NOTE | 2023-06-20 15:03 | P.PN ---
Subjective Progress Note Date: 06/20/23 Principal diagnosis: Acute COVID-19 infection 88-year-old male, seen in the emergency department, room 2. The patient was evaluated, on June 11, for complaints of generalized weakness, and mild shortness of breath. He apparently was feeling weak, and, fell, injuring his elbow. He apparently did not hit his head, and apparently did not have loss of consciousness. Apparently his was positive for coronavirus. He also tested positive. The patient does admit to some mild shortness of breath, cough and congestion. The patient appears not to have any respiratory distress at this time. The patient was on 2 L of oxygen. His troponins were elevated, and for that reason, he was on IV heparin. White count 8.8, hemoglobin 13.5, hematocrit 40, and platelet count 150,000. PTT is 116.2. Sodium 137, potassium 4, chlorides 108, CO2 18, BUN 20, and creatinine 0.83. Glucose 127. Troponins were 0.099, 0.108, and 0.174. He was negative for influenza A and influenza B, and respiratory syncytial virus. He did test positive for coronavirus. The patient's chest x-ray was normal without any acute infiltrate. On today's evaluation of 06/13/2023, I'm seeing the patient for a follow-up. He is currently on room and oxygen. No major respiratory difficulties. The patient was tested positive for Covid 19. He has received previous vaccination. No major respiratory distress at this point in time.The physical is at 12.9 with a hemoglobin of 14, coagulation profile is normal and the patient is currently off the IV heparin as the PTT is quite elevated. Troponins are 0.12 respectively. History of any chest pain. On 06/14/2023, the patient remains on room air oxygen. I had a discussion with the nursing staff and I was told that he was having some symptoms suggestive of sundowner. Otherwise, he is stable. Extremities. No focal neurological deficits. He has a Covid 19 infection. His blood work from 06/13/2023 was noted. His magnesium level is at 1.8. Rest of the CBC is essentially within normal limits. He did have some mild elevation of troponin with a peak troponin level of 0.174. He was seen by cardiology and he was kept on IV heparin for another 24 hours. He was told to have a type II myocardial injury due to Covid 19 infection without evidence of any ST segment changes. He was also given a dose of Lasix yesterday. Is known to have coronary artery disease with previous PCI to LAD and RCA. His last cardiac catheterization was noted. 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 His other comorbidit ies include hypertension, hyperlipidemia, BPH, diastolic heart failure and degenerative cervical disc disease. His repeat chest x-ray from today is showing no acute abnormalities. Instruments and platelets are seen in his cervical spine and the lower thoracic upper lumbar spine. On 06/15/2023, no new complaints and the patient is currently on room air oxygen. No significant respiratory difficulties. No cough or sputum production. No other significant events overnight.No new labs are available from today. The patient is currently on Decadron. The patient is on Lovenox for DVT prophylaxis. The patient is currently off IV heparin. He remains on aspirin. On 06/16/2023, the patient continues to be on Decadron. He remains on room air oxygen. No altered mentation. No chest pain. No cough or congestion. He remains on room air oxygen. He is clinically stable. He is hemodynamically stable. Labs from yesterday were all stable. Slightly hypertensive and professor of family medicine on the case regarding blood pressure management. He is currently on interview or, lisinopril dose was increased up to 20 mg and is also on Inderal. Discharge planning is in progress. The patient is being considered to be going to [facility]. on today's evaluation of 06/17/2023, the patient is doing well. No specific complaints. He is still awaiting his discharge to [facility]. No respiratory difficulties. Remains on Decadron.The white cycles of 12.7 with a hemoglobin of 14 and a platelet count of 206. BUN is at 42 with a creatinine 0.9 and a sodium level is at 137. On 06/18/2023, no new complaints and the patient's condition is stable, room air oxygen awaiting [facility] transfer, pulse ox is 96% on room air oxygen. The patient is afebrile. The patient continues to be on Decadron. He is on Lovenox for DVT prophylaxis. Patient was reevaluated today on 06/19/2023, patient does not have a single complaint, tells me he feels great today, and he never felt bad. No shortness of breath no cough no wheezing no chest pain. Apparently the patient had an episode yesterday of hypotension requiring norepinephrine drip, has been off since 4 AM. Patient in addition had atrial fibrillation with RVR associated with low blood pressure. Today he is asymptomatic, A. fib seems to be much better controlled today compared to yesterday. Patient is on room air with O2 saturations 97%. The pressure 120/59. Cardiology is addressing his cardiac arrhythmia, presently on Inderal at 10 mg by mouth daily. Patient is also on dexamethasone for his Covid 19 infection and on multivitamins. Objective - Vital Signs Vital signs: Vital Signs Temp 97.8 F 06/20/23 12:00 Pulse 56 L 06/20/23 12:00 Resp 14 06/20/23 12:00 BP 120/59 06/20/23 12:00 Pulse Ox 97 06/20/23 12:00 FiO2 Intake & Output 06/19/23 06/20/23 06/20/23 18:59 06:59 18:59 Intake Total 80.432 400 Output Total 1650 930 270 Balance -1650 -849.568 130 Weight 72 kg 72 kg Intake: Intake, IV Titration 80.432 Amount Diltiazem 125 mg In 27.667 Sodium Chloride 0.9% 100 ml @ Per Protocol IV .Q0M [facility] Rx#:[id number] Norepinephrine 4 mg In 52.765 Sodium Chloride 0.9% 250 ml @ 0.03 MCG/KG/MIN 8. 295 mls/hr IV .Q24H [facility] Rx#:[id number] Oral 400 Output: Urine 1650 930 270 Straight 200 Other: Voiding Method Toilet Indwelling Catheter Indwelling Catheter Urinal Diaper - Exam Physical Exam: Revealed a 88-year-old white male in no distress on room air, O2 sat is 97% Head: Atraumatic, normocephalic. HEENT:[Neck is supple.] [No neck masses.] [No thyromegaly.] [No JVD.] Chest: [Clear throughout, no crackles, no rhonchi, no wheezes.] Cardiac Exam: [Normal S1 and S2, no S3 gallop, no murmur.] Abdomen: [Soft, nontender, no megaly, no rebound, no guarding, normal bowel sounds.] Extremities: [No clubbing, no edema, no cyanosis.] Neurological Exam: [No focal neurologic deficit.] Alert and oriented 3 Psychiatric: Normal mood affect and normal mental status examination. - Labs CBC & Chem 7: 06/20/23 07:36 06/19/23 07:16 Labs: Abnormal Lab Results - Last 24 Hours (Table) 06/19/23 06/19/23 06/19/23 Range/Units 16:30 19:34 23:00 WBC 23.9 H (3.8-10.6) k/uL Neutrophils # (1.3-7.7) k/uL Neutrophils # (Manual) 17.20 H (1.3-7.7) k/uL Lymphocytes # (1.0-4.8) k/uL Lymphocytes # (Manual) 6.45 H (1.0-4.8) k/uL APTT (22.0-30.0) sec POC Glucose (mg/dL) 214 H 117 H (70-110) mg/dL 06/20/23 06/20/23 06/20/23 Range/Units 06:55 07:36 07:36 WBC 18.3 H (3.8-10.6) k/uL Neutrophils # 11.0 H (1.3-7.7) k/uL Neutrophils # (Manual) (1.3-7.7) k/uL Lymphocytes # 6.3 H (1.0-4.8) k/uL Lymphocytes # (Manual) (1.0-4.8) k/uL APTT 51.7 H (22.0-30.0) sec POC Glucose (mg/dL) 164 H (70-110) mg/dL 06/20/23 Range/Units 12:17 WBC (3.8-10.6) k/uL Neutrophils # (1.3-7.7) k/uL Neutrophils # (Manual) (1.3-7.7) k/uL Lymphocytes # (1.0-4.8) k/uL Lymphocytes # (Manual) (1.0-4.8) k/uL APTT (22.0-30.0) sec POC Glucose (mg/dL) 220 H (70-110) mg/dL Assessment and Plan Assessment: Impression: Acute COVID-19 infection but no clear-cut evidence of pneumonia Acute non-ST elevation myocardial infarction Coronary artery disease status post PCI to LAD in 2021 with moderate in-stent stenosis of RCA and moderate left circumflex disease [id number] aortic stenosis Dyslipidemia Benign essential hypertension Ex-smoker Recommendation: Continue present supportive care measures Continue COVID-19 cocktail Cardiology to address and possibly cleared the patient for discharge Complete course of Decadron We'll continue to follow Time with Patient: Less than 30
--- NOTE | 2023-06-20 15:07 | P.PN ---
Subjective Progress Note Date: 06/20/23 HISTORY OF PRESENT ILLNESS: This is an 88-year-old male patient of eduardo and Dr. Myers with a past medical history coronary artery disease status post PCI of the LAD and RCA, history of hypertension, hyperlipidemia BPH, neck and back surgeries for degenerative arthritis, patient was hospitalized at [facility] in 05/31/2023 and he was found to have a significant stenosis of the proximal LAD after heart cath physician that was done by Dr. Quintana, he underwent left heart catheterization with PCI of the proximal LAD using a size stents, and he did have a balloon angioplasty for dilatation as well, patient has done well over the last few months, patient presented to the emergency department at [facility] last night because of generalized fatigue and weakness and not able to do anything, unfortunately his who is the primary caregiver for him was diagnosed with covert and she has been in bed due to her illness, so he was brought to the ER for evaluation, he was tested positive for COVID-19, and the patient was found to have a slight elevation of the troponin I suggestive of a type II MA without evidence of non-ST elevation MA, and because of the presentation he was admitted to the hospital will be seen in consultation by pulmonary and cardiology, patient was started initially on heparin drip, therefore this will be discontinued and he will be placed on Lovenox 40 mg subcutaneously every 24 hours for DVT prophylaxis, patient will be maintained on vitamin D3 1000 unit once every day, vitamin C 500 mg orally once every day, and zinc 50 minute gram orally once every day, I will start the patient on dexamethasone 6 mg IV push every 24 hours. 06/13: Patient has been transferred up to the cardiac stepdown unit. He has been seen by cardiology while in the emergency center this morning for recheck and advised to continue heparin drip for 1 more day, 1 dose of IV Lasix 40 mg given an echocardiogram is pending. Patient is currently denying having any chest pain or shortness of breath. No cough or wheezing. No nausea or vomiting. Patient has been afebrile, heart rate in the 50s and 60s, blood pressure 136/82, pulse ox 95% on room air. 06/14: Patient believes his breathing status is improving. He denies having any cough no chest pain. He has been on a heparin drip and cardiology discontinue that today. Patient remains afebrile, heart rate in the 50s and 60s, blood pressure 119/58, pulse ox 95% on room air. Repeat blood work reveals WBC 17, hemoglobin 15, sodium 134, potassium 3.8, BUN 32 creatinine 0.98. Echocardiogram reveals normal LV function. Mild aortic stenosis and mild aortic regurgitation. Sclerotic aortic valve. Cardiology is recommending continuing aspirin 81 mg, statin, Imdur lisinopril and Inderal. Patient is also followed by pulmonary medicine. Anticipate probable discharge home tomorrow. Social work is following for discharge planning. 06/15: Patient complains of cough. No chest pain. No shortness of breath. He has been afebrile. Blood pressure 114/56, heart rate 53, pulse ox 96% on room air. Repeat blood work reveals hemoglobin 13.5, WBC 13.5. Sodium 136, potassium 3.7, BUN 35 creatinine 0.94. Blood sugar 178. Has been seen by cardiology and cleared for discharge. Patient has also been seen by Dr. Soria this morning and cleared for discharge. A PT OT consult have been added and there is concern about him going home and being safe. business continuity manager is working on discharge planning. Patient is to follow up with Dr. Myers in 2-3 weeks. We will plan to transfer the patient to [facility] until discharge plan is completed. 06/16: Patient worked with physical therapy this morning and already has some improvement of his strength. He is still at risk for fall if he were discharged home. He continues to have balance issues as well and strength issues. Patient has been afebrile, heart rate 65, blood pressure 165/72, pulse ox 96% on room air. Blood glucose running between 130s and 153. Patient remains on IV dexamethasone which will decrease to 4 mg. He is also on the vitamin cocktail. Discharge planning is for subacute rehab and patient may be expected at [facility] and currently we are waiting for insurance authorization. Patient may be transferred to [facility] once bed is available. 06/17: Patient is laying down in bed in no apparent distress, he denies any chest pain, he is less short of breath, he is still did not receive any authorization to go to the assisted, patient would want go to to [facility] I spoke with the patient's and his daughters about not able to to transfer the patient to get the authorization. 06/18: Patient is sitting up in bed in no apparent distress, he continues to be free of oxygen at this time, he would be moved to the medical surgical floor, he denies any chest pain, he has less coughing, no abdominal pain, no nausea no vomiting or diarrhea, we are still awaiting the final authorization for the patient to go to subacute rehab in addition continue physical therapy when the patient the hospital. 06/19: Patient did have an episode of nonsustained V. tach yesterday, laboratory values were done including BMP and magnesium level, patient was completely at asymptomatic this point in time, he denies any chest pain or shortness breath, he is maintained on his current cardiac medication. 06/20: Patient had episode of hypotension requiring norepinephrine drip briefly and also atrial fibrillation with RVR. patient was started on heparin drip and continued on Inderal 10 mg daily. Patient remains in the intensive care unit. He is now converted to sinus rhythm with PACs. Cardiology consult is in place. Patient is also followed by pulmonary medicine.heart rate is in the 50s, blood pressure 120/59, pulse ox 97% on room air.repeat blood work reveals WBC 18.3, hemoglobin 15.9.insurance authorization has been obtained and [facility] has accepted the patient. Plan is for discharge to [facility] tomorrow. REVIEW OF SYSTEMS: Constitutional: No documented fever, no chills, no night sweats. No weight change. positive for weakness, fatigue or lethargy. No daytime sleepiness. HEENT: No headache. No blurred vision or double vision, no loss of vision. No loss of Hearing, no ringing in the ears, no dizziness. No nasal drainage or congestion. No epistaxis. No sore throat. Lungs: Positive for shortness of breath, no cough, no sputum production. No wheezing. Reports dyspnea with activity. Cardiovascular: No chest pain, no lower extremity edema. No palpitations. No paroxysmal nocturnal dyspnea. No orthopnea. No lightheadedness or dizziness. No syncopal episodes. Abdominal: Reports no abdominal pain. No nausea, vomiting. No diarrhea. No constipation. No bloody or tarry stools reports loss of appetite. Genitourinary: No dysuria, increased frequency, urgency. No urinary retention. Musculoskeletal: No myalgias. + muscle weakness,positive for gait dysfunction, positive for frequent falls, positive for back pain, and neck pain. Integumentary: No wounds, no lesions. No rash or pruritus. No unusual bruising. No change in hair or nails. Neurologic: No aphasia. No facial droop. No change in mentation. No head injury. No headache. No paralysis. No paresthesia. Psychiatric: positive for depression. No anxiety. positive for mood swings. Endocrine: No abnormal blood sugars. No weight change. PHYSICAL EXAMINATION: General: 88-year-old male lying down in bed in no apparent distress. HEENT: Head is atraumatic, normocephalic, pupils were equal round reactive to light and recommendation, extraocular muscle movement were intact, sclera nonicteric, conjunctivae were pale, mucous membranes of the mouth are somewhat dry. Neck: Supple, no JVP, normal carotid upstroke bilaterally, no lymphadenopathy. Chest: Decreased breath sounds at the bases, few rhonchi, no extremity wheezes, no chest wall tenderness, no intercostal retractions. Heart: First heart sound is normal, second heart sounds normal there is systolic ejection murmur 2/6 located in the left sternal border. Abdomen: Soft, nontender, nondistended, positive bowel sounds. Extremities: There is no edema no calf tenderness DP +2 bilaterally. Neurologic examination: Patient is awake alert and oriented X 3, cranial nerves II-12 appear grossly intact, muscle power were 5 out of 5 in upper extremities a nd 5 out of 5 in bilateral lower extremities, deep tendon reflexes normal bilaterally. ASSESSMENT AND PLAN: 1. COVID-19 infection. And tinea droplet precautions, continue patient on dexamethasone 4 mg po daily, continue oxygen support as needed, continue vitamin D3 2000 units once every day, vitamin C 500 mg once every day, 650 mg once every day, pulmonary consultation appreciated. 2. Myocardial injury with type II MA due to COVID-19 infection without evidence of non-ST elevation MA, continue patient on aspirin 81 mg once every day, atorvastatin 80 mg once every day, isosorbide dinitrate 20 mg orally twice every day. 3. History of CAD post-PCI of the LAD and RCA. Last heart catheterization November 2019 showed stable disease. Continue aspirin 81 mg once every day, Lipitor 80 mg once every day, lisinopril 10 mg every day, isosorbide 20 mg orally twice every day. 4. Hypertension and hypertensive cardiovascular disease. Continue lisinopril 10 mg orally once every day. 5. Sinus bradycardia with significant first-degree AV block. Monitor the patient overnight. 6. Hyperlipidemia. Continue Lipitor 80 mg once every day, keep LDL cholesterol 55-70. 7. Enlarged prostate continue Flomax 0.4 mg once every day. 8. 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 Continue with physical therapy as needed. 9. Chronic diastolic heart failure. Continue patient on lisinopril 10 mg orally once every day, continue with Lasix 40 mg orally once every day along with potassium supplement. 10. DVT prophylaxis. Lovenox 40 mg subcutaneously every 24 hours as well as bilateral knee-high JENNIFER hose. 11. GI prophylaxis. Continue Protonix 40 mg orally once every day. 12. Nonsustained V. tach. Laboratory evaluation were okay patient is completely a sympathetic, echocardiogram showed normal ejection fraction with mild aortic stenosis and aortic regurgitation. 13. new-onset A. fib with RVR, converted to sinus rhythm. Cardiology consult. Patient is currently on heparin drip. Discharge plan: [facility] tomorrow Impression and plan of care have been directed as dictated by the signing physician. Ingrid Benitez nurse practitioner acting as scribe for signing physician. Objective - Vital Signs Vital signs: Vital Signs Temp 97.8 F 06/20/23 08:00 Pulse 57 L 06/20/23 09:00 Resp 25 H 06/20/23 09:00 BP 138/70 06/20/23 09:00 Pulse Ox 98 06/20/23 09:00 FiO2 Intake & Output 06/19/23 06/20/23 06/20/23 18:59 06:59 18:59 Intake Total 80.432 400 Output Total 1650 930 270 Balance -4190 -849.568 130 Weight 72 kg 72 kg Intake: Intake, IV Titration 80.432 Amount Diltiazem 125 mg In 27.667 Sodium Chloride 0.9% 100 ml @ Per Protocol IV .Q0M FATMATA Rx#:[id number] Norepinephrine 4 mg In 52.765 Sodium Chloride 0.9% 250 ml @ 0.03 MCG/KG/MIN 8. 295 mls/hr IV .Q24H FATMATA Rx#:[id number] Oral 400 Output: Urine 1650 930 270 Straight 200 Other: Voiding Method Toilet Indwelling Catheter Indwelling Catheter Urinal Diaper - Labs CBC & Chem 7: 06/20/23 07:36 06/19/23 07:16 Labs: Abnormal Lab Results - Last 24 Hours (Table) 06/19/23 06/19/23 06/19/23 Range/Units 16:30 19:34 23:00 WBC 23.9 H (3.8-10.6) k/uL Neutrophils # (1.3-7.7) k/uL Neutrophils # (Manual) 17.20 H (1.3-7.7) k/uL Lymphocytes # (1.0-4.8) k/uL Lymphocytes # (Manual) 6.45 H (1.0-4.8) k/uL APTT (22.0-30.0) sec POC Glucose (mg/dL) 214 H 117 H (70-110) mg/dL 06/20/23 06/20/23 06/20/23 Range/Units 06:55 07:36 07:36 WBC 18.3 H (3.8-10.6) k/uL Neutrophils # 11.0 H (1.3-7.7) k/uL Neutrophils # (Manual) (1.3-7.7) k/uL Lymphocytes # 6.3 H (1.0-4.8) k/uL Lymphocytes # (Manual) (1.0-4.8) k/uL APTT 51.7 H (22.0-30.0) sec POC Glucose (mg/dL) 164 H (70-110) mg/dL 06/20/23 Range/Units 12:17 WBC (3.8-10.6) k/uL Neutrophils # (1.3-7.7) k/uL Neutrophils # (Manual) (1.3-7.7) k/uL Lymphocytes # (1.0-4.8) k/uL Lymphocytes # (Manual) (1.0-4.8) k/uL APTT (22.0-30.0) sec POC Glucose (mg/dL) 220 H (70-110) mg/dL
[2023-06-20 17:57] LABS: Glucose,Whole Blood 153 mg/dL (70-110)
--- NOTE | 2023-06-20 18:58 | P.PN ---
Subjective 88-year-old male with past medical history of CAD status post PCI to LAD, RCA, history of hypertension, dyslipidemia, BPH, known to Dr. Myers. His last heart catheterization was in May 2022 intermediate lesion in LAD ifr positive requiring PCI. He had moderate in-stent stenosis in RCA and moderate disease in LCx He was brought to the hospital because of worsening generalized weakness, resulting in a mechanical fall along with worsening shortness of breath. He was tested positive for COVID-19. On admission blood pressure 144/71 pulse 60. Troponin 0.09, 0.1, 0.17 ECG showed sinus rhythm with Q waves in inferior leads consistent of old [place], LVH, IVCD, PVCs Chest x-ray was normal with no signs of primary congestion Hemoglobin 13, BUN 20, creatinine 0.8 Last echo from February 2023 shows moderate LVH, EF 55-50%, moderate aortic stenosis with mean gradient of 20 mmHg 06/13 Patient is seen again today in the emergency center waiting for a bed on the cardiac stepdown unit. Patient denies having any chest pain, no shortness of breath, no cough or wheezing. No nausea vomiting. He does have some lower extremity edema. Blood pressure 136/82, heart rate is in the 50s and 60s, pulse ox 95% on room air. Patient is currently on heparin drip. Echocardiogram is pending. 06/14 Patient is seen today on the CSD unit. He states his breathing status is improving, no chest pain, no cough. He states he is feeling pretty well right now. He has been on heparin drip which we will discontinue today. Patient has been afebrile greater than 24 hours, heart rate in the 50s and 60s, blood pressure 119/58, pulse ox 95% on room air. Repeat blood work reveals WBC 17, hemoglobin 15, sodium 134, potassium 3.8, BUN 32 creatinine 0.98. Echocardiogram reveals normal LV function. Mild aortic stenosis and mild aortic regurgitation. Sclerotic aortic valve. 06/15 Patient complains of cough. No chest pain. No shortness of breath. He has been afebrile. Blood pressure 114/56, heart rate 53, pulse ox 96% on room air. Repeat blood work reveals hemoglobin 13.5, WBC 13.5. Sodium 136, potassium 3.7, BUN 35 creatinine 0.94. Blood sugar 178. 12/7 Patient is seen sitting in chair today. He states he is getting a little bit better, shortness of breath is better, and weakness is improving he did well for a few with physical therapy. Discharge plan is for rehab. Blood pressure 164/70, heart rate in the 50s and 60s, afebrile, pulse ox 95% on room air. 06/20 Cardiology was re-consulted secondary to episode of A. fib with RVR. Patient had newonset A. fib with RVR 06/19 at approximately 6 PM until 11 PM with heart rates in the 130s to 140s. He was started on Cardizem drip and also required vasopressors. He converted at 11 PM and has come off of Cardizem drip as well as vasopressors. He states he was actually asymptomatic throughout this time. Patient anxious to possibly go home tomorrow. PHYSICAL EXAMINATION Vital signs reviewed. Head: Normocephalic. Eyes: Sclerae nonicteric. Neck: Brisk carotid upstroke, no jugular venous distention. Lungs: Clear to auscultation. Heart: Regular rate and rhythm, S1-S2, no S3, no murmur or rub. Abdomen: Soft nontender, positive bowel sounds no organomegaly. Extremities: 1+ edema, intact distal pulses. Neuro: Alert, oritented, no focal deficits ASSESSMENT NSTEMI Generalized weakness and mechanical fall COVID Positive CAD status post PCI to LAD May 2022. Moderate in-stent stenosis in RCA stent. Moderate LCx disease Moderate LVH [id number] aortic stenosis Frequent Premature ventricular contractions New-onset A. fib with RVR PLAN Patient with new onset of atrial fibrillation and discussed risk of stroke and risks and benefits of anticoagulation. Patient is agreeable to anticoagulation. Start Eliquis 5mg bid and evaluate coverage with weight >60kg and Cr<1.5. Patient states he was asymptomatic from the atrial fibrillation and continue with the propranolol for now however if has recurrent episodes may consider amiodarone. Hopeful discharge tomorrow if no significant issues Objective - Vital Signs Vital signs: Vital Signs Temp 97.8 F 06/20/23 12:00 Pulse 59 L 06/20/23 16:00 Resp 17 06/20/23 16:00 BP 116/55 06/20/23 16:00 Pulse Ox 98 06/20/23 16:00 FiO2 Intake & Output 1206/20/23 06/20/23 18:59 06:59 18:59 Intake Total 80.432 400 Output Total 1650 930 870 Balance -1650 -849.568 -470 Weight 72 kg 72 kg Intake: Intake, IV Titration 80.432 Amount Diltiazem 125 mg In 27.667 Sodium Chloride 0.9% 100 ml @ Per Protocol IV .Q0M FATMATA Rx#:[id number] Norepinephrine 4 mg In 52.765 Sodium Chloride 0.9% 250 ml @ 0.03 MCG/KG/MIN 8. 295 mls/hr IV .Q24H FATMATA Rx#:[id number] Oral 400 Output: Urine 1650 930 870 Straight 200 Other: Voiding Method Toilet Indwelling Catheter Indwelling Catheter Urinal Diaper - Labs CBC & Chem 7: 06/20/23 07:36 06/19/23 07:16 Labs: Abnormal Lab Results - Last 24 Hours (Table) 06/19/23 06/19/23 06/20/23 Range/Units 19:34 23:00 06:55 WBC 23.9 H (3.8-10.6) k/uL Neutrophils # (1.3-7.7) k/uL Neutrophils # (Manual) 17.20 H (1.3-7.7) k/uL Lymphocytes # (1.0-4.8) k/uL Lymphocytes # (Manual) 6.45 H (1.0-4.8) k/uL APTT (22.0-30.0) sec POC Glucose (mg/dL) 117 H 164 H (70-110) mg/dL 06/20/23 06/20/23 06/20/23 Range/Units 07:36 07:36 12:17 WBC 18.3 H (3.8-10.6) k/uL Neutrophils # 11.0 H (1.3-7.7) k/uL Neutrophils # (Manual) (1.3-7.7) k/uL Lymphocytes # 6.3 H (1.0-4.8) k/uL Lymphocytes # (Manual) (1.0-4.8) k/uL APTT 51.7 H (22.0-30.0) sec POC Glucose (mg/dL) 220 H (70-110) mg/dL 06/20/23 Range/Units 17:56 WBC (3.8-10.6) k/uL Neutrophils # (1.3-7.7) k/uL Neutrophils # (Manual) (1.3-7.7) k/uL Lymphocytes # (1.0-4.8) k/uL Lymphocytes # (Manual) (1.0-4.8) k/uL APTT (22.0-30.0) sec POC Glucose (mg/dL) 153 H (70-110) mg/dL
[2023-06-20] MEDS: APIXABAN 5 MG TAB PO SCH (20:45)
[2023-06-20 23:30] VITALS: RESP 18
[2023-06-21] MEDS ORDERED: SPIRONOLACTONE 25 MG TAB PO SCH (09:00)
[2023-06-21] MEDS: ALBUTEROL HFA INHALER INHALATION SCH ×3 (09:20→16:17)
[2023-06-21] MEDS ORDERED: METOPROLOL TARTRATE 25 MG TAB PO SCH (09:45)
[2023-06-21] MEDS: CHOLECALCIFEROL 25 MCG (1000 IU) TABLET PO SCH (09:56)
[2023-06-21] MEDS: APIXABAN 5 MG TAB PO SCH (09:56)
[2023-06-21] MEDS: ZINC SULFATE 220 MG CAP PO SCH (09:56)
[2023-06-21] MEDS: ASPIRIN 81 MG PO SCH (09:56)
[2023-06-21] MEDS: lisinopriL 20 MG TAB PO SCH (09:57)
[2023-06-21] MEDS: TAMSULOSIN 0.4 MG CAP.ER.24H PO SCH (09:57)
[2023-06-21] MEDS: PANTOPRAZOLE 40 MG TABLET PO SCH (09:57)
[2023-06-21] MEDS: INSULIN ASPART (NovoLOG) 100 UNIT/ML VIAL SQ SCH ×2 (09:57→12:38)
[2023-06-21] MEDS: ATORVASTATIN 80 MG TAB PO SCH (09:57)
[2023-06-21] MEDS: dexAMETHasone 4 MG TAB PO SCH (09:58)
[2023-06-21] MEDS: PROPRANOLOL 10 MG TAB PO SCH (09:58)
[2023-06-21] MEDS: FINASTERIDE 5 MG TAB PO SCH (09:58)
[2023-06-21] MEDS: FUROSEMIDE 40 MG TAB PO SCH (10:00)
[2023-06-21] MEDS: ASCORBIC ACID 500 MG TAB PO SCH (10:00)
[2023-06-21] MEDS: ISOSORBIDE MONONITRATE 20 MG TAB PO SCH (10:00)
--- NOTE | 2023-06-21 10:33 | P.GSCN ---
History of Present Illness Consult date: 06/21/23 Reason for Consult: Urinary retention History of present illness: This is an 88-year-old male admitted to the hospital [place] [address]. Urology is co nsulted for urinary retention. Patient does have history of BPH he is on Flomax and Proscar. He indicated at baseline he is able to void without difficulties, does complain of a weak stream at baseline. Denies any dysuria or gross hematuria. No known previous history of urinary retention. Patient did have a Cardenas catheter placed on June 19 for a postvoid residual of 1.4 L. A Cardenas cath is currently in place draining clear yellow urine. The Plan is to discharge patient to subacute rehab Review of Systems - Constitutional Denies fever, Denies weight loss - EENT Ears, nose, mouth and throat: Denies dysphagia - Cardiovascular Denies chest pain, Denies shortness of breath - Respiratory Denies cough, Denies 7 - Gastrointestinal Reports as per HPI Past Medical History Past Medical History: Hyperlipidemia, Hypertension, Myocardial Infarction ([place]), Osteoarthritis ([place]), Pneumonia Additional Past Medical History / Comment(s): has some balance issue, uses cane when outside home, sinus problems, Last Myocardial Infarction Date:: 1993 History of Any Multi-Drug Resistant Organisms: None Reported Past Surgical History: Back Surgery, Heart Catheterization, Tonsillectomy Additional Past Surgical History / Comment(s): 2 Neck surgery, 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 Mother History Unknown: Yes Family Medical History: CVA/TIA Daughter(s) History Unknown: Yes Family Medical History: Diabetes Mellitus Medications and Allergies Home Medications Medication Instructions Recorded Confirmed Type Isosorbide Mononitrate [Ismo] 20 mg PO BID 03/25/14 06/11/23 History Atorvastatin Calcium [Lipitor] 80 mg PO DAILY 08/12/18 06/11/23 History Finasteride [Proscar] 5 mg PO DAILY 08/12/18 06/11/23 History Tamsulosin [Flomax] 0.4 mg PO DAILY 12/07/19 06/11/23 History Aspirin EC [Ecotrin Low Dose] 81 mg PO DAILY 06/12/21 06/11/23 History Propranolol [Inderal] 10 mg PO DAILY 06/11/23 06/11/23 History Ascorbic Acid [Vitamin C] 500 mg PO BID tab 06/15/23 Rx Cholecalciferol [Vitamin D3 (25 50 mcg PO DAILY tab 06/15/23 Rx Mcg = 1000 Iu)] Pantoprazole [Protonix] 40 mg PO AC-BRKFST #30 tab 06/15/23 Rx Zinc Sulfate [Orazinc] 220 mg PO DAILY cap 06/15/23 Rx dexAMETHasone [Decadron] 4 mg PO DAILY #6 tablet 06/15/23 Rx Furosemide [Lasix] 40 mg PO DAILY tab 06/20/23 Rx INSULIN ASPART (NovoLOG) [NovoLOG 0 unit SQ AC-TID each 06/20/23 Rx (formulary)] lisinopriL [Zestril] 20 mg PO DAILY #30 tab 06/20/23 Rx Albuterol Inhaler [Ventolin Hfa 2 puff INHALATION RT-QID #1 each 06/21/23 Rx Inhaler] Apixaban [Eliquis] 5 mg PO BID #60 tab 06/21/23 Rx Allergies Allergy/AdvReac Type Severity Reaction Status Date / Time adhesive tape Allergy pulls skin Verified 06/11/23 20:25 off adhesive dressings Allergy pulls skin Uncoded 06/11/23 20:25 off Surgical - Exam Vital Signs Temp Pulse Resp BP Pulse Ox 98.7 F 72 18 135/61 95 06/11/23 17:06 06/11/23 17:06 06/11/23 17:06 06/11/23 17:06 06/11/23 17:06 - General no distress, no pain - Eyes normal ocular movement, no pale - ENT normal nares, normal mucosa - Respiratory normal expansion, normal respiratory effort - Abdomen Abdomen: soft, non tender - Genitourinary Cardenas draining clear yellow urine Results - Labs 06/20/23 07:36 06/19/23 07:16 Abnormal Lab Results - Last 24 Hours (Table) 06/20/23 06/20/23 Range/Units 12:17 17:56 POC Glucose (mg/dL) 220 H 153 H (70-110) mg/dL Assessment and Plan Assessment: 88 old male with history of BPH, on Flomax and Proscar. Had a Cardenas catheter placed for urinary retention of 1.4 L. Denies any significant voiding dysfunction at baseline. His retention is mostly secondary to his BPH, worsened by his deconditioning from his recent hospitalization. At this point recommend discharging to subacutely he had with the Cardenas catheter, can have a repeat trial of void at subacute rehab in 1 week, if his residuals less than 500 mL then he doesn't need a Cardenas catheter, but if residuals is greater than 500 mL the Cardenas catheter should be reinserted and he should follow up with urology as an outpatient
[2023-06-21 11:32] VITALS: TEMP 98.5
--- NOTE | 2023-06-21 12:13 | P.DS ---
Providers Date of admission: 06/13/23 10:21 Expected date of discharge: 06/21/23 Attending physician: Nayeli Michel Consults: 06/11/23 20:26 Consult Physician Urgent Consulting Provider: Doni Smith Consult Reason/Comments: covid-19 Do you want consulting provider notified?: Yes 06/19/23 18:45 Consult Physician Routine Consulting Provider: Phill Camilo Consult Reason/Comments: Retention Do you want consulting provider notified?: Yes 06/19/23 19:16 Consult Physician Stat Consulting Provider: Hamilton Myers Consult Reason/Comments: Afib RVR Do you want consulting provider notified?: Already Contacted 06/19/23 19:43 Consult Physician Urgent Consulting Provider: Cody Soria Consult Reason/Comments: ICU Management Do you want consulting provider notified?: Already Contacted Primary care physician: Nayeli Michel [facility] Course: HISTORY OF PRESENT ILLNESS: This is an 88-year-old male patient of eduardo and Dr. Myers with a past medical history coronary artery disease status post PCI of the LAD and RCA, history of hypertension, hyperlipidemia BPH, neck and back surgeries for degenerative arthritis, patient was hospitalized at [facility] in 05/31/2023 and he was found to have a significant stenosis of the proximal LAD after heart cath physician that was done by Dr. Quintana, he underwent left heart catheterization with PCI of the proximal LAD using a size stents, and he did have a balloon angioplasty for dilatation as well, patient has done well over the last few months, patient presented to the emergency department at [facility] last night because of generalized fatigue and weakness and not able to do anything, unfortunately his who is the primary caregiver for him was diagnosed with covert and she has been in bed due to her illness, so he was brought to the ER for evaluation, he was tested positive for COVID-19, and the patient was found to have a slight elevation of the troponin I suggestive of a type II PR without evidence of non-ST elevation PR, and because of the presentation he was admitted to the hospital will be seen in consultation by pulmonary and cardiology, patient was started initially on heparin drip, therefore this will be discontinued and he will be placed on Lovenox 40 mg subcutaneously every 24 hours for DVT prophylaxis, patient will be maintained on vitamin D3 1000 unit once every day, vitamin C 500 mg orally once every day, and zinc 50 minute gram orally once every day, I will start the patient on dexamethasone 6 mg IV push every 24 hours. 06/13: Patient has been transferred up to the cardiac stepdown unit. He has been seen by cardiology while in the emergency center this morning for recheck and advised to continue heparin drip for 1 more day, 1 dose of IV Lasix 40 mg given an echocardiogram is pending. Patient is currently denying having any chest pain or shortness of breath. No cough or wheezing. No nausea or vomiting. Patient has been afebrile, heart rate in the 50s and 60s, blood pressure 136/82, pulse ox 95% on room air. 06/14: Patient believes his breathing status is improving. He denies having any cough no chest pain. He has been on a heparin drip and cardiology discontinue that today. Patient remains afebrile, heart rate in the 50s and 60s, blood pressure 119/58, pulse ox 95% on room air. Repeat blood work reveals WBC 17, hemoglobin 15, sodium 134, potassium 3.8, BUN 32 creatinine 0.98. Echocardiogram reveals normal LV function. Mild aortic stenosis and mild aortic regurgitation. Sclerotic aortic valve. Cardiology is recommending continuing aspirin 81 mg, statin, Imdur lisinopril and Inderal. Patient is also followed by pulmonary medicine. Anticipate probable discharge home tomorrow. Social work is following for discharge planning. 06/15: Patient complains of cough. No chest pain. No shortness of breath. He has been afebrile. Blood pressure 114/56, heart rate 53, pulse ox 96% on room air. Repeat blood work reveals hemoglobin 13.5, WBC 13.5. Sodium 136, potassium 3.7, BUN 35 creatinine 0.94. Blood sugar 178. Has been seen by cardiology and cleared for discharge. Patient has also been seen by Dr. Soria this morning and cleared for discharge. A PT OT consult have been added and there is concern about him going home and being safe. communication manager is working on discharge planning. Patient is to follow up with Dr. Myers in 2-3 weeks. We will plan to transfer the patient to [facility] until discharge plan is completed. 06/16: Patient worked with physical therapy this morning and already has some improvement of his strength. He is still at risk for fall if he were discharged home. He continues to have balance issues as well and strength issues. Patient has been afebrile, heart rate 65, blood pressure 165/72, pulse ox 96% on room air. Blood glucose running between 130s and 153. Patient remains on IV dexamethasone which will decrease to 4 mg. He is also on the vitamin cocktail. Discharge planning is for subacute rehab and patient may be expected at [facility] and currently we are waiting for insurance authorization. Patient may be transferred to [facility] once bed is available. 06/17: Patient is laying down in bed in no apparent distress, he denies any chest pain, he is less short of breath, he is still did not receive any authorization to go to the [facility], patient would want go to to [facility] I spoke with the patient's and his daughters about not able to to transfer the patient to get the authorization. 06/18: Patient is sitting up in bed in no apparent distress, he continues to be free of oxygen at this time, he would be moved to the medical surgical floor, he denies any chest pain, he has less coughing, no abdominal pain, no nausea no vomiting or diarrhea, we are still awaiting the final authorization for the patient to go to subacute rehab in addition continue physical therapy when the patient the hospital. 06/19: Patient did have an episode of nonsustained V. tach yesterday, laboratory values were done including BMP and magnesium level, patient was completely at asymptomatic this point in time, he denies any chest pain or shortness breath, he is maintained on his current cardiac medication. 06/20: Patient had episode of hypotension requiring norepinephrine drip briefly and also atrial fibrillation with RVR. patient was started on heparin drip and continued on Inderal 10 mg daily. Patient remains in the intensive care unit. He is now converted to sinus rhythm with PACs. Cardiology consult is in place. Patient is also followed by pulmonary medicine.heart rate is in the 50s, blood pressure 120/59, pulse ox 97% on room air.repeat blood work reveals WBC 18.3, hemoglobin 15.9.insurance authorization has been obtained and [facility] has accepted the patient. Plan is for discharge to [facility] tomorrow. 06/21: Patient was seen by cardiology yesterday regarding episode of atrial fibrillation with RVR which was be a new onset of atrial fibrillation. Yesterday, patient was started on eliquis and heparin drip was discontinued. Patient did not have any then saw overnight, no episodes of atrial fibrillation. Patient is now refusing to go to [facility]. He has gained some strength during his extended hospitalization. Patient is also refusing home care. Patient will be discharged today in stable condition. He has a March catheter in place with planned follow-up with urology next week to have this discontinued. DISCHARGE DIAGNOSES: 1. COVID-19 infection. 2. Myocardial injury with type II PR due to COVID-19 infection without evidence of non-ST elevation PR. 3. Nonsustained V. tach. 4. new-onset A. fib with RVR, converted to sinus rhythm. 5. History of CAD post-PCI of the LAD and RCA. Last heart catheterization November 2019 showed stable disease. 6. Hypertension and hypertensive cardiovascular disease. 7. Sinus bradycardia with significant first-degree AV block. 8. Hyperlipidemia. 9. Enlarged prostate 10. 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 11. Chronic diastolic heart failure. Discharge plan: [facility] Greater than 35 minutes was utilized and coordinating patient's discharge. Impression and plan of care have been directed as dictated by the signing physician. Ingrid Benitez nurse practitioner acting as scribe for signing physician. Patient Condition at Discharge: Stable Plan - Discharge Summary Discharge Rx Participant: No New Discharge Prescriptions: New Cholecalciferol [Vitamin D3 (25 Mcg = 1000 Iu)] 50 mcg PO DAILY tab lisinopriL [Zestril] 20 mg PO DAILY #30 tab Apixaban [Eliquis] 5 mg PO BID #60 tab Albuterol Inhaler [Ventolin Hfa Inhaler] 2 puff INHALATION RT-QID #1 each dexAMETHasone ORAL [Hexadrol] 4 mg PO DAILY #4 tablet Furosemide [Lasix] 20 mg PO DAILY #30 tab Zinc Sulfate [Orazinc] 220 mg PO DAILY cap Ascorbic Acid [Vitamin C] 500 mg PO BID tab Pantoprazole [Protonix] 40 mg PO DAILY #30 tab Continue Isosorbide Mononitrate [Ismo] 20 mg PO BID Atorvastatin Calcium [Lipitor] 80 mg PO DAILY Finasteride [Proscar] 5 mg PO DAILY Tamsulosin [Flomax] 0.4 mg PO DAILY Propranolol [Inderal] 10 mg PO DAILY Aspirin EC [Ecotrin Low Dose] 81 mg PO DAILY Discontinued Clopidogrel [Plavix] 75 mg PO DAILY #90 tab lisinopriL [Zestril] 10 mg PO DAILY Discharge Medication List Isosorbide Mononitrate [Ismo] 20 mg PO BID 03/25/14 [History] Atorvastatin Calcium [Lipitor] 80 mg PO DAILY 08/12/18 [History] Finasteride [Proscar] 5 mg PO DAILY 08/12/18 [History] Tamsulosin [Flomax] 0.4 mg PO DAILY 12/07/19 [History] Aspirin EC [Ecotrin Low Dose] 81 mg PO DAILY 06/12/21 [History] Propranolol [Inderal] 10 mg PO DAILY 06/11/23 [History] Ascorbic Acid [Vitamin C] 500 mg PO BID tab 06/15/23 [Rx] Cholecalciferol [Vitamin D3 (25 Mcg = 1000 Iu)] 50 mcg PO DAILY tab 06/15/23 [Rx] Zinc Sulfate [Orazinc] 220 mg PO DAILY cap 06/15/23 [Rx] lisinopriL [Zestril] 20 mg PO DAILY #30 tab 06/20/23 [Rx] Albuterol Inhaler [Ventolin Hfa Inhaler] 2 puff INHALATION RT-QID #1 each 06/21/23 [Rx] Apixaban [Eliquis] 5 mg PO BID #60 tab 06/21/23 [Rx] Furosemide [Lasix] 20 mg PO DAILY #30 tab 06/21/23 [Rx] Pantoprazole [Protonix] 40 mg PO DAILY #30 tab 06/21/23 [Rx] dexAMETHasone ORAL [Hexadrol] 4 mg PO DAILY #4 tablet 06/21/23 [Rx] Follow up Appointment(s)/Referral(s): Hamilton Myers MD [STAFF PHYSICIAN] - 3 Weeks Nayeli Michel MD [Primary Care Provider] - 1 Week () Al Zuleta MD [STAFF PHYSICIAN] - 1 Week (To have march removed if indicated) Patient Instructions/Handouts: Coronavirus Disease 2019 (COVID-19), Heart Attack (GEN), March Catheter Placement and Care (GEN), How to Change a Catheter Drainage Bag (GEN) Discharge Disposition: HOME SELF-CARE
[2023-06-21 12:46] VITALS: BP 133/60; PULSE 60
--- NOTE | 2023-06-21 14:17 | P.PN ---
Subjective Progress Note Date: 06/21/23 Principal diagnosis: Acute COVID-19 infection 88-year-old male, seen in the emergency department, room 2. The patient was evaluated, on June 11, for complaints of generalized weakness, and mild shortness of breath. He apparently was feeling weak, and, fell, injuring his elbow. He apparently did not hit his head, and apparently did not have loss of consciousness. Apparently his was positive for coronavirus. He also tested positive. The patient does admit to some mild shortness of breath, cough and congestion. The patient appears not to have any respiratory distress at this time. The patient was on 2 L of oxygen. His troponins were elevated, and for that reason, he was on IV heparin. White count 8.8, hemoglobin 13.5, hematocrit 40, and platelet count 150,000. PTT is 116.2. Sodium 137, potassium 4, chlorides 108, CO2 18, BUN 20, and creatinine 0.83. Glucose 127. Troponins were 0.099, 0.108, and 0.174. He was negative for influenza A and influenza B, and respiratory syncytial virus. He did test positive for coronavirus. The patient's chest x-ray was normal without any acute infiltrate. On today's evaluation of 06/13/2023, I'm seeing the patient for a follow-up. He is currently on room and oxygen. No major respiratory difficulties. The patient was tested positive for Covid 19. He has received previous vaccination. No major respiratory distress at this point in time.The physical is at 12.9 with a hemoglobin of 14, coagulation profile is normal and the patient is currently off the IV heparin as the PTT is quite elevated. Troponins are 0.12 respectively. History of any chest pain. On 06/14/2023, the patient remains on room air oxygen. I had a discussion with the nursing staff and I was told that he was having some symptoms suggestive of sundowner. Otherwise, he is stable. Extremities. No focal neurological deficits. He has a Covid 19 infection. His blood work from 06/13/2023 was noted. His magnesium level is at 1.8. Rest of the CBC is essentially within normal limits. He did have some mild elevation of troponin with a peak troponin level of 0.174. He was seen by cardiology and he was kept on IV heparin for another 24 hours. He was told to have a type II myocardial injury due to Covid 19 infection without evidence of any ST segment changes. He was also given a dose of Lasix yesterday. Is known to have coronary artery disease with previous PCI to LAD and RCA. His last cardiac catheterization was noted. 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 His other comorbidit ies include hypertension, hyperlipidemia, BPH, diastolic heart failure and degenerative cervical disc disease. His repeat chest x-ray from today is showing no acute abnormalities. Instruments and platelets are seen in his cervical spine and the lower thoracic upper lumbar spine. On 06/15/2023, no new complaints and the patient is currently on room air oxygen. No significant respiratory difficulties. No cough or sputum production. No other significant events overnight.No new labs are available from today. The patient is currently on Decadron. The patient is on Lovenox for DVT prophylaxis. The patient is currently off IV heparin. He remains on aspirin. On 06/16/2023, the patient continues to be on Decadron. He remains on room air oxygen. No altered mentation. No chest pain. No cough or congestion. He remains on room air oxygen. He is clinically stable. He is hemodynamically stable. Labs from yesterday were all stable. Slightly hypertensive and [employer] group leader on the case regarding blood pressure management. He is currently on interview or, lisinopril dose was increased up to 20 mg and is also on Inderal. Discharge planning is in progress. The patient is being considered to be going to [facility]. on today's evaluation of 06/17/2023, the patient is doing well. No specific complaints. He is still awaiting his discharge to [facility]. No respiratory difficulties. Remains on Decadron.The white cycles of 12.7 with a hemoglobin of 14 and a platelet count of 206. BUN is at 42 with a creatinine 0.9 and a sodium level is at 137. On 06/18/2023, no new complaints and the patient's condition is stable, room air oxygen awaiting [facility] manner transfer, pulse ox is 96% on room air oxygen. The patient is afebrile. The patient continues to be on Decadron. He is on Lovenox for DVT prophylaxis. Patient was reevaluated today on 06/20/2023, patient does not have a single complaint, tells me he feels great today, and he never felt bad. No shortness of breath no cough no wheezing no chest pain. Apparently the patient had an episode yesterday of hypotension requiring norepinephrine drip, has been off since 4 AM. Patient in addition had atrial fibrillation with RVR associated with low blood pressure. Today he is asymptomatic, A. fib seems to be much better controlled today compared to yesterday. Patient is on room air with O2 saturations 97%. The pressure 120/59. Cardiology is addressing his cardiac arrhythmia, presently on Inderal at 10 mg by mouth daily. Patient is also on dexamethasone for his Covid 19 infection and on multivitamins. Reevaluated today on 06/21/2023, patient continues to do well, remains in the ICU, denies any shortness of breath no cough no wheezing, denies any chest pain, patient is being considered for discharge home today. Patient is on room air with O2 sats of 98% blood pressure is 133/60 heart rate is 60, patient is in sinus rhythm Objective - Vital Signs Vital signs: Vital Signs Temp 98.5 F 06/21/23 09:45 Pulse 60 06/21/23 12:00 Resp 18 06/21/23 12:00 BP 133/60 06/21/23 12:00 Pulse Ox 98 06/21/23 12:00 FiO2 Intake & Output 06/20/23 06/21/23 06/21/23 18:59 06:59 18:59 Intake Total 400 379.665 Output Total 870 950 150 Balance -470 -570.335 -150 Weight 72 kg 72.8 kg Intake: Intake, IV Titration 159.665 Amount Heparin Sod,Pork in 0.45% 159.665 NaCl 25,000 unit In 0.45 % NaCl 1 250ml.bag @ 12 UNITS/KG/HR 8.709 mls/hr IV .Q24H [facility] Rx#: [id number] Oral 400 220 Output: Urine 870 950 150 Other: Voiding Method Indwelling Catheter Indwelling Catheter Indwelling Catheter - Exam Physical Exam: Revealed a 88-year-old white male in no distress on room air, asymptomatic. Head: Atraumatic, normocephalic. HEENT:[Neck is supple.] [No neck masses.] [No thyromegaly.] [No JVD.] Chest: [Clear throughout, no crackles, no rhonchi, no wheezes.] Cardiac Exam: [Normal S1 and S2, no S3 gallop, no murmur.] Abdomen: [Soft, nontender, no megaly, no rebound, no guarding, normal bowel sounds.] Extremities: [No clubbing, no edema, no cyanosis.] Neurological Exam: [No focal neurologic deficit.] Alert and oriented 3 Psychiatric: Normal mood affect and normal mental status examination. - Labs CBC & Chem 7: 06/20/23 07:36 06/19/23 07:16 Labs: Abnormal Lab Results - Last 24 Hours (Table) 06/20/23 Range/Units 17:56 POC Glucose (mg/dL) 153 H (70-110) mg/dL Assessment and Plan Assessment: Impression: Acute COVID-19 infection but no clear-cut evidence of pneumonia Acute non-ST elevation myocardial infarction Coronary artery disease status post PCI to LAD in 2021 with moderate in-stent stenosis of RCA and moderate left circumflex disease [id number] aortic stenosis Dyslipidemia Benign essential hypertension Ex-smoker Recommendation: Continue present supportive care measures Continue COVID-19 cocktail We'll clear the patient for discharge if cleared by other consultants Complete course of Decadron We'll continue to follow Time with Patient: Less than 30
--- NOTE | 2023-06-21 15:31 | P.PN ---
Subjective 88-year-old male with past medical history of CAD status post PCI to LAD, RCA, history of hypertension, dyslipidemia, BPH, known to Dr. Myers. His last heart catheterization was in May 2022 intermediate lesion in LAD ifr positive requiring PCI. He had moderate in-stent stenosis in RCA and moderate disease in LCx He was brought to the hospital because of worsening generalized weakness, resulting in a mechanical fall along with worsening shortness of breath. He was tested positive for COVID-19. On admission blood pressure 144/71 pulse 60. Troponin 0.09, 0.1, 0.17 ECG showed sinus rhythm with Q waves in inferior leads consistent of old AL, LVH, IVCD, PVCs Chest x-ray was normal with no signs of primary congestion Hemoglobin 13, BUN 20, creatinine 0.8 Last echo from February 2023 shows moderate LVH, EF 55-50%, moderate aortic stenosis with mean gradient of 20 mmHg 06/13 Patient is seen again today in the emergency center waiting for a bed on the cardiac stepdown unit. Patient denies having any chest pain, no shortness of breath, no cough or wheezing. No nausea vomiting. He does have some lower extremity edema. Blood pressure 136/82, heart rate is in the 50s and 60s, pulse ox 95% on room air. Patient is currently on heparin drip. Echocardiogram is pending. 06/14 Patient is seen today on the [facility] unit. He states his breathing status is improving, no chest pain, no cough. He states he is feeling pretty well right now. He has been on heparin drip which we will discontinue today. Patient has been afebrile greater than 24 hours, heart rate in the 50s and 60s, blood pressure 119/58, pulse ox 95% on room air. Repeat blood work reveals WBC 17, hemoglobin 15, sodium 134, potassium 3.8, BUN 32 creatinine 0.98. Echocardiogram reveals normal LV function. Mild aortic stenosis and mild aortic regurgitation. Sclerotic aortic valve. 06/15 Patient complains of cough. No chest pain. No shortness of breath. He has been afebrile. Blood pressure 114/56, heart rate 53, pulse ox 96% on room air. Repeat blood work reveals hemoglobin 13.5, WBC 13.5. Sodium 136, potassium 3.7, BUN 35 creatinine 0.94. Blood sugar 178. 12/7 Patient is seen sitting in chair today. He states he is getting a little bit better, shortness of breath is better, and weakness is improving he did well for a few with physical therapy. Discharge plan is for rehab. Blood pressure 164/70, heart rate in the 50s and 60s, afebrile, pulse ox 95% on room air. 06/20 Cardiology was re-consulted secondary to episode of A. fib with RVR. Patient had newonset A. fib with RVR 06/19 at approximately 6 PM until 11 PM with heart rates in the 130s to 140s. He was started on Cardizem drip and also required vasopressors. He converted at 11 PM and has come off of Cardizem drip as well as vasopressors. He states he was actually asymptomatic throughout this time. Patient anxious to possibly go home tomorrow. 06/21 Patient having some issues with urinary retention and urology was consult did. He denies any chest pain or pressure. He remains in sinus rhythm with sinus bradycardia heart rates 50s predominantly. No lightheadedness or dizziness. PHYSICAL EXAMINATION Vital signs reviewed. Head: Normocephalic. Eyes: Sclerae nonicteric. Neck: Brisk carotid upstroke, no jugular venous distention. Lungs: Clear to auscultation. Heart: Regular rate and rhythm, S1-S2, no S3, no murmur or rub. Abdomen: Soft nontender, positive bowel sounds no organomegaly. Extremities: 1+ edema, intact distal pulses. Neuro: Alert, oritented, no focal deficits ASSESSMENT NSTEMI Generalized weakness and mechanical fall COVID Positive CAD status post PCI to LAD May 2022. Moderate in-stent stenosis in RCA stent. Moderate LCx disease Moderate LVH [id number] aortic stenosis Frequent Premature ventricular contractions New-onset A. fib with RVR PLAN Continue anticoagulation with Eliquis Patient with borderline blood pressures and therefore continue only with the propranolol for now. He also has some bradycardia, asymptomatic and therefore likely will not be able to add much more rate controlling medication. Patient appears stable for discharge home from a cardiology standpoint. please call with any questions. Objective - Vital Signs Vital signs: Vital Signs Temp 98.5 F 06/21/23 09:45 Pulse 60 06/21/23 12:00 Resp 18 06/21/23 12:00 BP 133/60 06/21/23 12:00 Pulse Ox 98 12/12/23 12:00 FiO2 Intake & Output 06/20/23 06/21/23 06/21/23 18:59 06:59 18:59 Intake Total 400 379.665 Output Total 870 950 700 Balance -470 -570.335 -700 Weight 72 kg 72.8 kg Intake: Intake, IV Titration 159.665 Amount Heparin Sod,Pork in 0.45% 159.665 NaCl 25,000 unit In 0.45 % NaCl 1 250ml.bag @ 12 UNITS/KG/HR 8.709 mls/hr IV .Q24H [facility] Rx#: [id number] Oral 400 220 Output: Urine 870 950 700 Other: Voiding Method Indwelling Catheter Indwelling Catheter Indwelling Catheter - Labs CBC & Chem 7: 06/20/23 07:36 06/19/23 07:16 Labs: Abnormal Lab Results - Last 24 Hours (Table) 06/20/23 Range/Units 17:56 POC Glucose (mg/dL) 153 H (70-110) mg/dL
== END 2023-06-21 16:45 | disposition home health service (06) | DRG 177 ==
LOC: EC 16:48 → 3SCARD 20:30 → OBSVTOIN 06-13 10:21 → 3SCARD 06-13 11:00 → 4SSUR 06-18 20:57 → 2SICU 06-19 21:03
PROVIDERS: ADMIT Internal Medicine; ATTEND Internal Medicine
PROC: 8E0ZXY6 Isolation (ICD-10-PCS; principal; 2023-06-13)
PROC: 3E033XZ Introduction of Vasopressor into Peripheral Vein, Percutaneous Approach (ICD-10-PCS; 2023-06-19)
DX: U07.1 COVID-19 (principal); I21.A1 Myocardial infarction type 2; I50.32 Chronic diastolic (congestive) heart failure; I47.20 Ventricular tachycardia, unspecified; F05 Delirium due to known physiological condition; I25.10 Atherosclerotic heart disease of native coronary artery without angina pectoris; W06.XXXA Fall from bed, initial encounter; Y92.019 Unspecified place in single-family (private) house as the place of occurrence of the external cause; R33.8 Other retention of urine; I95.9 Hypotension, unspecified; N40.1 Benign prostatic hyperplasia with lower urinary tract symptoms; I44.0 Atrioventricular block, first degree; I48.91 Unspecified atrial fibrillation; M50.30 Other cervical disc degeneration, unspecified cervical region; M51.36 Other intervertebral disc degeneration, lumbar region; I11.0 Hypertensive heart disease with heart failure; R00.1 Bradycardia, unspecified; S51.012A Laceration without foreign body of left elbow, initial encounter; G25.0 Essential tremor; E78.5 Hyperlipidemia, unspecified; Z95.5 Presence of coronary angioplasty implant and graft; Z87.01 Personal history of pneumonia (recurrent); Z91.81 History of falling; Z79.899 Other long term (current) drug therapy; Z79.82 Long term (current) use of aspirin; Z79.02 Long term (current) use of antithrombotics/antiplatelets; Z79.01 Long term (current) use of anticoagulants; I25.2 Old myocardial infarction; Z87.891 Personal history of nicotine dependence; Z75.1 Person awaiting admission to adequate facility elsewhere
CPT/HCPCS: 36415; 71045; 71046; 80048; 80053; 83036; 83605; 83735; 84484; 85025; 85027; 85610; 85730; 87636; 93005; 93306; 94640; 96361; 96365; 96366; 96375; 96376; 99285

== ENCOUNTER 2023-07-01 11:34 | Inpatient (IN) | payer MEDICARE ==
[2023-07-01 12:39] LABS: INR 1.1 (<1.2); Partial Thromboplastin Time 25.6 sec (22.0-30.0); Prothrombin Time 11.6 sec (10.0-12.5)
[2023-07-01 12:53] LABS: Basophils % (A) 0 %; Eosinophils # (A) 0.1 k/uL (0-0.7); Eosinophils % (A) 1 %; HCT 34.2 % (39.0-53.0); Lymphocytes # (A) 2.3 k/uL (1.0-4.8); Lymphocytes % (A) 23 %; MCH 33.7 pg (25.0-35.0); MCHC 34.9 g/dL (31.0-37.0); MCV 96.3 fL (80.0-100.0); Mean Platelet Volume 7.1; Monocytes # (A) 0.2 k/uL (0-1.0); Monocytes % (A) 2 %; Neutrophils # (A) 7.6 k/uL (1.3-7.7); Neutrophils % (A) 73 %; Platelet Count 232 k/uL (150-450); RBC 3.55 m/uL (4.30-5.90); RDW 12.8 % (11.5-15.5); WBC 10.4 k/uL (3.8-10.6)
[2023-07-01] MEDS ORDERED: SODIUM CHLORIDE 0.9% 500 ML 500 ML IV ONE (13:08)
[2023-07-01 13:11] LABS: ALT 31 U/L (4-49); AST 28 U/L (17-59); African American GFR (CKD) >90 (>60 ml/min/1.73 sqM); Albumin 2.4 g/dL (3.5-5.0); Alkaline Phosphatase 63 U/L (38-126); Anion Gap 7 mmol/L; Blood Urea Nitrogen 28 mg/dL (9-20); Calcium 7.5 mg/dL (8.4-10.2); Carbon Dioxide 20 mmol/L (22-30); Chloride 108 mmol/L (98-107); Glucose 133 mg/dL (74-99); Magnesium 1.8 mg/dL (1.6-2.3); Non-African American GFR(CKD) 82 (>60 ml/min/1.73 sqM); Potassium 3.8 mmol/L (3.5-5.1); Sodium 135 mmol/L (137-145); Total Bilirubin 0.9 mg/dL (0.2-1.3); Total Protein 4.6 g/dL (6.3-8.2)
[2023-07-01] MEDS ORDERED: NALOXONE 0.4 MG/ML 1 ML VIAL IV PRN (14:02)
--- NOTE | 2023-07-01 14:02 | ED ---
Dizziness HPI - General Chief Complaint: Syncope Stated Complaint: [id number] Time Seen by Provider: 07/01/23 11:40 Source: patient, EMS, RN notes reviewed Mode of arrival: EMS Limitations: no limitations - History of Present Illness Initial Comments: 88-year-old male presents emergency department via EMS from PCPs office for evaluation of syncope, bradycardia. Patient's been having bradycardic events was PCPs office when he passed out reportedly was unconscious. Patient did receive atropine by EMS. Patient denied any chest pain states his urine was 1 w saxman follow-up from his recent admission. Patient denies any current complaints now. - Related Data Home Medications Medication Instructions Recorded Confirmed Isosorbide Mononitrate [Ismo] 20 mg PO BID 03/25/14 07/01/23 Atorvastatin Calcium [Lipitor] 80 mg PO DAILY 08/12/18 07/01/23 Finasteride [Proscar] 5 mg PO DAILY 08/12/18 07/01/23 Tamsulosin [Flomax] 0.4 mg PO DAILY 12/07/19 07/01/23 Aspirin EC [Ecotrin Low Dose] 81 mg PO DAILY 06/12/21 07/01/23 Propranolol [Inderal] 10 mg PO DAILY 06/11/23 07/01/23 Previous Rx's Medication Instructions Recorded Ascorbic Acid [Vitamin C] 500 mg PO BID tab 06/15/23 Cholecalciferol [Vitamin D3 (25 50 mcg PO DAILY tab 06/15/23 Mcg = 1000 Iu)] Zinc Sulfate [Orazinc] 220 mg PO DAILY cap 06/15/23 lisinopriL [Zestril] 20 mg PO DAILY #30 tab 06/20/23 Albuterol Inhaler [Ventolin Hfa 2 puff INHALATION RT-QID #1 each 06/21/23 Inhaler] Apixaban [Eliquis] 5 mg PO BID #60 tab 06/21/23 Furosemide [Lasix] 20 mg PO DAILY #30 tab 06/21/23 Pantoprazole [Protonix] 40 mg PO DAILY #30 tab 06/21/23 Allergies Allergy/AdvReac Type Severity Reaction Status Date / Time adhesive tape Allergy pulls skin Verified 07/01/23 13:55 off adhesive dressings Allergy pulls skin Uncoded 07/01/23 13:55 off Review of Systems ROS Statement: Those systems with pertinent positive or pertinent negative responses have been documented in the HPI. ROS Other: All systems not noted in ROS Statement are negative. Past Medical History Past Medical History: Hyperlipidemia, Hypertension, Myocardial Infarction (HI), Osteoarthritis (OA), Pneumonia Additional Past Medical History / Comment(s): has some balance issue, uses cane when outside home, sinus problems, Last Myocardial Infarction Date:: 1993 History of Any Multi-Drug Resistant Organisms: None Reported Past Surgical History: Back Surgery, Heart Catheterization, Tonsillectomy Additional Past Surgical History / Comment(s): 2 Neck surgery, STATES HAS "PLASTIC" IN NECK, METAL IN BACK, STENT IN HEART X2, NORTH CATARACTS, Past Anesthesia/Blood Transfusion Reactions: No Reported Reaction Additional Past Anesthesia/Blood Transfusion Reaction / Comment(s): denies PONV Date of Last Stent Placement:: 2012 Past Psychological History: No Psychological Hx Reported Smoking Status: Former smoker Past Alcohol Use History: None Reported Past Drug Use History: None Reported - Past Family History Father History Unknown: Yes Family Medical History: Myocardial Infarction (HI) Additional Family Medical History / Comment(s): Several mi's, but from complications of pedestrain/mva-head injury. Mother History Unknown: Yes Family Medical History: CVA/TIA Daughter(s) History Unknown: Yes Family Medical History: Diabetes Mellitus General Exam Limitations: no limitations General appearance: alert, in no apparent distress Head exam: Present: atraumatic, normocephalic, normal inspection Eye exam: Present: normal appearance, PERRL, EOMI. Absent: scleral icterus, conjunctival injection, periorbital swelling ENT exam: Present: normal exam, mucous membranes moist Neck exam: Present: normal inspection. Absent: tenderness, meningismus, lymphadenopathy Respiratory exam: Present: normal lung sounds bilaterally. Absent: respiratory distress, wheezes, rales, rhonchi, stridor Cardiovascular Exam: Present: normal rhythm, bradycardia, normal heart sounds. Absent: systolic murmur, diastolic murmur, rubs, gallop, clicks Neurological exam: Present: alert, oriented X3, CN II-XII intact, reflexes normal. Absent: motor sensory deficit Course Vital Signs 07/01/23 07/01/23 07/01/23 11:38 11:45 12:00 Temperature 98.8 F Pulse Rate 50 L 50 L 48 L Pulse Rate [ 54 L Audiovisual Aids Technician ] Respiratory 18 18 18 Rate Blood Pressure 123/68 123/68 111/56 O2 Sat by Pulse 98 99 96 Oximetry 07/01/23 07/01/23 07/01/23 12:15 12:30 12:45 Temperature Pulse Rate 52 L 50 L 47 L Pulse Rate [ Audiovisual Aids Technician ] Respiratory 18 18 18 Rate Blood Pressure 89/54 93/49 86/46 O2 Sat by Pulse 97 95 97 Oximetry 07/01/23 07/01/23 07/01/23 13:00 13:15 13:30 Temperature Pulse Rate 47 L 52 L 49 L Pulse Rate [ Audiovisual Aids Technician ] Respiratory 18 18 18 Rate Blood Pressure 91/47 91/47 83/50 O2 Sat by Pulse 97 98 98 Oximetry EKG Findings - EKG Comments: EKG Findings:: EKG performed at 11:40 sinus rhythm first-degree block rate is 60 VA 227 QRS 112 QT/QTc 440/440 - EKG Results: EKG: interpreted by BARRY Medical Decision Making - Medical Decision Making Was pt. sent in by a medical professional or institution (, PA, ASSISTANT PASSENGER LOCOMOTIVE ENGINEER, urgent care, hospital, or care home...) When possible be specific @ -[PCP Did you speak to anyone other than the patient for history (EMS, parent, family, police, friend...)? What history was obtained from this source @ -EMS and PCP Did you review nursing and triage notes (agree or disagree)? Why? @ -I reviewed and agree with nursing and triage notes Were old charts reviewed (outside hosp., previous admission, EMS record, old EKG, old radiological studies, urgent care reports/EKG's, care home records)? Report findings @ -No old charts were reviewed Differential Diagnosis (chest pain, altered mental status, abdominal pain women, abdominal pain men, vaginal bleeding, weakness, fever, dyspnea, syncope, headache, dizziness, GI bleed, back pain, seizure, CVA, palpatations, mental health, musculoskeletal)? @ -Differential Syncope: Valvular disease, hypertrophic cardiomyopathy, pulmonary embolism, tamponade, tachycardia, bradycardia, HI, hypovolemia, hemorrhage, dissection, anemia, intracranial hemorrhage, seizure, hypoglycemia, carbon monoxide poisoning, this is not meant to be an all-inclusive list. EKG interpreted by me (3pts min.). @ -As above X-rays interpreted by me (1pt min.). @ -None done CT interpreted by me (1pt min.). @ -None done U/S interpreted by me (1pt. min.). @ -None done What testing was considered but not performed or refused? (CT, X-rays, U/S, labs)? Why? @ -None What meds were considered but not given or refused? Why? @ -None Did you discuss the management of the patient with other professionals (professionals i.e. , PA, ASSISTANT PASSENGER LOCOMOTIVE ENGINEER, lab, RT, psych nurse, nephrology social worker, gas meter checker, teacher, philanthropy officer, case loader operator)? Give summary @ -[Dr. Michel for admission secondary to syncopal and significant bradycardia Was smoking cessation discussed for >3mins.? @ -No Was critical care preformed (if so, how long)? @ -No Were there social determinants of health that impacted care today? How? (Homelessness, low income, unemployed, alcoholism, drug addiction, transportation, low edu. Level, literacy, decrease access to med. care, nursing home, rehab)? @ -No Was there de-escalation of care discussed even if they declined (Discuss DNR or withdrawal of care, Hospice)? DNR status @ -No What co-morbidities impacted this encounter? (DM, HTN, Smoking, COPD, CAD, Cancer, CVA, ARF, Chemo, Hep., AIDS, mental health diagnosis, sleep apnea, morbid obesity)? @ -Hypertension, hyperlipidemia Was patient admitted / discharged? Hospital course, mention meds given and route, prescriptions, significant lab abnormalities, going to OR and other pertinent info. @ -Admitted patient has syncopal event, was unresponsive, patient's found to be bradycardic did receive atropine. Patient will be admitted for cardiology evaluation secondary to current events. Undiagnosed new problem with uncertain prognosis? @ -No Drug Therapy requiring intensive monitoring for toxicity (Heparin, Nitro, Insulin, Cardizem)? @ -No Were any procedures done? @ -No Diagnosis/symptom? @ -Bradycardia, syncope Acute, or Chronic, or Acute on Chronic? @ -[Acute Uncomplicated (without systemic symptoms) or Complicated (systemic symptoms)? @ -[Complicated Side effects of treatment? @ -No Exacerbation, Progression, or Severe Exacerbation? @ -No Poses a threat to life or bodily function? How? (Chest pain, USA, HI, pneumonia, PE, COPD, DKA, ARF, appy, cholecystitis, CVA, Diverticulitis, Homicidal, Suic idal, threat to staff... and all critical care pts) @ -Yes bradycardia - Lab Data Result diagrams: 07/01/23 12:16 07/01/23 12:16 Lab Results 07/01/23 07/01/23 07/01/23 Range/Units 12:16 12:16 12:16 WBC 10.4 (3.8-10.6) k/uL RBC 3.55 L (4.30-5.90) m/uL Hgb 12.0 L D (13.0-17.5) gm/dL Hct 34.2 L (39.0-53.0) % MCV 96.3 (80.0-100.0) fL MCH 33.7 (25.0-35.0) pg MCHC 34.9 (31.0-37.0) g/dL RDW 12.8 (11.5-15.5) % Plt Count 232 (150-450) k/uL MPV 7.1 Neutrophils % 73 % Lymphocytes % 23 % Monocytes % 2 % Eosinophils % 1 % Basophils % 0 % Neutrophils # 7.6 (1.3-7.7) k/uL Lymphocytes # 2.3 (1.0-4.8) k/uL Monocytes # 0.2 (0-1.0) k/uL Eosinophils # 0.1 (0-0.7) k/uL Basophils # 0.0 (0-0.2) k/uL PT 11.6 (10.0-12.5) sec INR 1.1 (<1.2) APTT 25.6 (22.0-30.0) sec Sodium 135 L (137-145) mmol/L Potassium 3.8 (3.5-5.1) mmol/L Chloride 108 H (98-107) mmol/L Carbon Dioxide 20 L (22-30) mmol/L Anion Gap 7 mmol/L BUN 28 H (9-20) mg/dL Creatinine 0.77 (0.66-1.25) mg/dL Est GFR (CKD-EPI)AfAm >90 (>60 ml/min/1.73 sqM) Est GFR (CKD-EPI)NonAf 82 (>60 ml/min/1.73 sqM) Glucose 133 H (74-99) mg/dL Calcium 7.5 L (8.4-10.2) mg/dL Magnesium 1.8 (1.6-2.3) mg/dL Total Bilirubin 0.9 (0.2-1.3) mg/dL AST 28 (17-59) U/L ALT 31 (4-49) U/L Alkaline Phosphatase 63 (38-126) U/L Troponin I (0.000-0.034) ng/mL Total Protein 4.6 L (6.3-8.2) g/dL Albumin 2.4 L (3.5-5.0) g/dL 07/01/23 Range/Units 12:16 WBC (3.8-10.6) k/uL RBC (4.30-5.90) m/uL Hgb (13.0-17.5) gm/dL Hct (39.0-53.0) % MCV (80.0-100.0) fL MCH (25.0-35.0) pg MCHC (31.0-37.0) g/dL RDW (11.5-15.5) % Plt Count (150-450) k/uL MPV Neutrophils % % Lymphocytes % % Monocytes % % Eosinophils % % Basophils % % Neutrophils # (1.3-7.7) k/uL Lymphocytes # (1.0-4.8) k/uL Monocytes # (0-1.0) k/uL Eosinophils # (0-0.7) k/uL Basophils # (0-0.2) k/uL PT (10.0-12.5) sec INR (<1.2) APTT (22.0-30.0) sec Sodium (137-145) mmol/L Potassium (3.5-5.1) mmol/L Chloride (98-107) mmol/L Carbon Dioxide (22-30) mmol/L Anion Gap mmol/L BUN (9-20) mg/dL Creatinine (0.66-1.25) mg/dL Est GFR (CKD-EPI)AfAm (>60 ml/min/1.73 sqM) Est GFR (CKD-EPI)NonAf (>60 ml/min/1.73 sqM) Glucose (74-99) mg/dL Calcium (8.4-10.2) mg/dL Magnesium (1.6-2.3) mg/dL Total Bilirubin (0.2-1.3) mg/dL AST (17-59) U/L ALT (4-49) U/L Alkaline Phosphatase (38-126) U/L Troponin I <0.012 (0.000-0.034) ng/mL Total Protein (6.3-8.2) g/dL Albumin (3.5-5.0) g/dL Disposition Clinical Impression: Bradycardia, Syncope Disposition: ADMITTED IP TO THIS HOSP Condition: Fair Time of Disposition: 14:01
--- NOTE | 2023-07-01 15:29 | P.HPIM ---
History of Present Illness H&P Date: 07/01/23 Chief Complaint: orthostatic hypotension/syncopy HISTORY OF PRESENT ILLNESS: This is an 88-year-old male patient of eduardo and Dr. Myers with a past medical history coronary artery disease status post PCI of the LAD and RCA, history of hypertension, hyperlipidemia BPH, neck and back surgeries for degenerative arthritis, patient was hospitalized at [facility] in 05/31/2023 and he was found to have a significant stenosis of the proximal LAD after heart cath physician that was done by Dr. Quintana, he underwent left heart catheterization with PCI of the proximal LAD using a size stents, and he did have a balloon angioplasty for dilatation as well, patient has done well over the last few months, patient presented to the emergency department at [facility] last night because of generalized fatigue and weakness and not able to do anything, unfortunately his who is the primary caregiver for him was diagnosed with COVID-19 and she has been in bed due to her illness, so he was brought to the ER for evaluation, he was tested positive for COVID-19, and the patient was found to have a slight elevation of the troponin I suggestive of a type II OK without evidence of non-ST elevation OK, and because of the presentation he was admitted to the hospital will be seen in consultation by pulmonary and cardiology, patient went into atrial fibrillation with rapid ventricular response and developed to have significant issues with urinary r etention and had Cardenas catheter in place and was supposed to go to [facility] but family elected to take him home instead, and he had Home Health care after he has his Catheter removed and he ended up no able to urinate so they place another one, patient came in today for hospital follow up in the office and I was with other patient when became pale and lost consciousness while sitting and turned blue Immediately we placed him on O2 and elevated his legs he regained consciousness and was on 2 L NC unfortunately he was bradycardic was in low 40 nd he became nauseated with dry heaving, 911 was called and patient was transported to the ER for evaluation and he did receive Atropine and his his heart rate went into the sixties then down into the fourties again, so he was admitted to the hospital for evaluation by cardiology for possible PPM REVIEW OF SYSTEMS: Constitutional: No documented fever, no chills, no night sweats. No weight change. positive for weakness, fatigue or lethargy. No daytime sleepiness. HEENT: No headache. No blurred vision or double vision, no loss of vision. No loss of Hearing, no ringing in the ears, no dizziness. No nasal drainage or congestion. No epistaxis. No sore throat. Lungs: Positive for shortness of breath, no cough, no sputum production. No whe ezing. Reports dyspnea with activity. Cardiovascular: No chest pain, no lower extremity edema. No palpitations. No paroxysmal nocturnal dyspnea. No orthopnea. No lightheadedness or dizziness. No syncopal episodes. Abdominal: Reports no abdominal pain. positive for nausea, vomiting. No diarr hea. No constipation. No bloody or tarry stools reports loss of appetite. Genitourinary: positive for urinat retention with Cardenas catheter Musculoskeletal: No myalgias. No muscle weakness,positive for gait dysfunction, positive for frequent falls, positive for back pain, and neck pain. Integumentary: No wounds, no lesions. No rash or pruritus. No unusual bruising. No change in hair or nails. Neurologic: No aphasia. No facial droop. No change in mentation. No head injury. No headache. No paralysis. No paresthesia. Psychiatric: positive for depression. No anxiety. positive for mood swings. Endocrine: No abnormal blood sugars. No weight change. PAST MEDICAL HISTORY: CAD post-PCI of the LAD and RCA. Minimal LV dysfunction. Hypertension and hypertensive cardiovascular disease. Hyperlipidemia. Essential tremor. BPH . 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 Recurrent falls. Atrial fibrillation. urinary retention COVID-19 PAST SURGICAL HISTORY: Posterior cervical discectomy with fusion. Lumbar discectomy with fusion . Bilateral cataract surgery Left heart catheterization with PCI of the LAD and RCA. SOCIAL HISTORY: Patient used to smoke about pack every day he started smoking when he was 18-year-old and quit in 1989 patient used to be heavy drinker he quit drinking in 1986 he lives with his , he uses a cane for immolation, he denies any drug use or abuse. FAMILY HISTORY: Father at age of 78 from multiple injuries due to pedestrian motor vehicle accident injury but he had several MIs, mother at age of 80 from CVA/TIA, patient has 2 daughters one with obesity hypertension hyperlipidemia and diab etes mellitus type 2, the other one with MS. PHYSICAL EXAMINATION: General: 88-year-old male lying down in bed in no apparent distress. HEENT: Head is atraumatic, normocephalic, pupils were equal round reactive to light and recommendation, extraocular muscle movement were intact, sclera nonicteric, conjunctivae were pale, mucous membranes of the mouth are somewhat dry. Neck: Supple, no JVP, normal carotid upstroke bilaterally, no lymphadenopathy. Chest: Decreased breath sounds at the bases, few rhonchi, no extremity wheezes, no chest wall tenderness, no intercostal retractions. Heart: First heart sound is normal, second heart sounds normal there is systolic ejection murmur 2/6 located in the left sternal border. Abdomen: Soft, nontender, nondistended, positive bowel sounds. Extremities: There is no edema no calf tenderness DP +2 bilaterally. Neurologic examination: Patient is awake alert and oriented X 3, cranial nerves II-12 appear grossly intact, muscle power were 5 out of 5 in upper extremities and 5 out of 5 in bilateral lower extremities, deep tendon reflexes normal bilaterally. ASSESSMENT AND PLAN: 1. Orthostatic hypotension with syncope due to bradycardic response. underlying rhythm is atrial fibrillation with bradycardia, we will hold all Beta Blockers including Propranolol till after evaluation for PPM. 2. Urinary retention post Cardenas catheter placement. we will continue with Tamsulosin 0.4 mg po daily. 3. Atrial Fibrillation unspecified. we will continue with Eliquis 5 mg po bid 4. History of CAD post-PCI of the LAD and RCA. Last heart catheterization November 2019 showed stable disease. Continue aspirin 81 mg once every day, Lipitor 80 mg once every day, lisinopril 10 mg every day, isosorbide 20 mg orally twice every day, consider adding Ranexa 500 mg orally twice every day. 5. Hypertension and hypertensive cardiovascular disease. Continue lisinopril 10 mg orally once every day. 6. Hyperlipidemia. Continue Lipitor 80 mg once every day, keep LDL cholesterol 55-70. 7. Enlarged prostate continue Flomax 0.4 mg once every day. 8. Recent COVID-19 infection. recovering well. 9. 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 Continue with physical therapy as needed. 10. Chronic diastolic heart failure. Continue patient on lisinopril 10 mg orally once every day, continue with Lasix 40 mg orally once every day Tuesday along with potassium supplements. 11. DVT prophylaxis. we will continue with Eliquis 5 mg po bid 12. GI prophylaxis. Continue Protonix 40 mg orally once every day. 13. Admit to inpatient. Estimate a length of stay 2 midnights. 14. Patient is full code. Past Medical History Past Medical History: Hyperlipidemia, Hypertension, Myocardial Infarction (OK), Osteoarthritis (OA), Pneumonia Additional Past Medical History / Comment(s): has some balance issue, uses cane when outside home, sinus problems, Last Myocardial Infarction Date:: 1993 History of Any Multi-Drug Resistant Organisms: None Reported Past Surgical History: Back Surgery, Heart Catheterization, Tonsillectomy Additional Past Surgical History / Comment(s): 2 Neck surgery, STATES HAS "PLASTIC" IN NECK, METAL IN BACK, STENT IN HEART X2, NORTH CATARACTS, Past Anesthesia/Blood Transfusion Reactions: No Reported Reaction Additional Past Anesthesia/Blood Transfusion Reaction / Comment(s): denies PONV Date of Last Stent Placement:: 2012 Past Psychological History: No Psychological Hx Reported Smoking Status: Former smoker Past Alcohol Use History: None Reported Past Drug Use History: None Reported - Past Family History Father History Unknown: Yes Family Medical History: Myocardial Infarction (OK) Additional Family Medical History / Comment(s): Several mi's, but from comp lications of pedestrain/mva-head injury. Mother History Unknown: Yes Family Medical History: CVA/TIA Daughter(s) History Unknown: Yes Family Medical History: Diabetes Mellitus Medications and Allergies Home Medications Medication Instructions Recorded Confirmed Type Isosorbide Mononitrate [Ismo] 20 mg PO BID 03/25/14 07/01/23 History Atorvastatin Calcium [Lipitor] 80 mg PO DAILY 08/12/18 07/01/23 History Finasteride [Proscar] 5 mg PO DAILY 08/12/18 07/01/23 History Tamsulosin [Flomax] 0.4 mg PO DAILY 12/07/19 07/01/23 History Aspirin EC [Ecotrin Low Dose] 81 mg PO DAILY 06/12/21 07/01/23 History Propranolol [Inderal] 10 mg PO DAILY 06/11/23 07/01/23 History Ascorbic Acid [Vitamin C] 500 mg PO BID tab 06/15/23 07/01/23 Rx Cholecalciferol [Vitamin D3 (25 50 mcg PO DAILY tab 06/15/23 07/01/23 Rx Mcg = 1000 Iu)] Zinc Sulfate [Orazinc] 220 mg PO DAILY cap 06/15/23 07/01/23 Rx lisinopriL [Zestril] 20 mg PO DAILY #30 tab 06/20/23 07/01/23 Rx Albuterol Inhaler [Ventolin Hfa 2 puff INHALATION RT-QID #1 each 06/21/23 07/01/23 Rx Inhaler] Apixaban [Eliquis] 5 mg PO BID #60 tab 06/21/23 07/01/23 Rx Furosemide [Lasix] 20 mg PO DAILY #30 tab 06/21/23 07/01/23 Rx Pantoprazole [Protonix] 40 mg PO DAILY #30 tab 06/21/23 07/01/23 Rx Allergies Allergy/AdvReac Type Severity Reaction Status Date / Time adhesive tape Allergy pulls skin Verified 07/01/23 13:55 off adhesive dressings Allergy pulls skin Uncoded 07/01/23 13:55 off Physical Exam Vitals: Vital Signs Temp Pulse Pulse Resp BP Pulse Ox 07/01/23 13:30 49 L 18 83/50 98 07/01/23 13:15 52 L 18 91/47 98 07/01/23 13:00 47 L 18 91/47 97 07/01/23 12:45 47 L 18 86/46 97 07/01/23 12:30 50 L 18 93/49 95 07/01/23 12:15 52 L 18 89/54 97 07/01/23 12:00 48 L 18 111/56 96 07/01/23 11:45 50 L 54 L 18 123/68 99 07/01/23 11:38 98.8 F 50 L 18 123/68 98 Intake and Output 06/30/23 07/01/23 07/01/23 22:59 06:59 14:59 Other: Weight 73.936 kg Results CBC & Chem 7: 07/01/23 12:16 07/01/23 12:16 Labs: Abnormal Lab Results - Last 24 Hours (Table) 07/01/23 07/01/23 Range/Units 12:16 12:16 RBC 3.55 L (4.30-5.90) m/uL Hgb 12.0 L D (13.0-17.5) gm/dL Hct 34.2 L (39.0-53.0) % Sodium 135 L (137-145) mmol/L Chloride 108 H (98-107) mmol/L Carbon Dioxide 20 L (22-30) mmol/L BUN 28 H (9-20) mg/dL Glucose 133 H (74-99) mg/dL Calcium 7.5 L (8.4-10.2) mg/dL Total Protein 4.6 L (6.3-8.2) g/dL Albumin 2.4 L (3.5-5.0) g/dL
[2023-07-01] MEDS: ALBUTEROL NEBULIZED 2.5 MG/3 ML INHALATION SCH ×2 (15:51→19:49)
[2023-07-01] MEDS: APIXABAN 5 MG TAB PO SCH (19:37)
[2023-07-01] MEDS: ASCORBIC ACID 500 MG TAB PO SCH (19:37)
[2023-07-01] MEDS: ISOSORBIDE MONONITRATE 20 MG TAB PO SCH (20:09)
[2023-07-02] MEDS: PANTOPRAZOLE 40 MG TABLET PO SCH (08:02)
[2023-07-02 08:08] LABS: Basophils % (A) 0 %; Eosinophils # (A) 0.2 k/uL (0-0.7); Eosinophils % (A) 1 %; HGB 12.9 gm/dL (13.0-17.5); Lymphocytes # (A) 4.3 k/uL (1.0-4.8); Lymphocytes % (A) 33 %; MCH 33.3 pg (25.0-35.0); MCHC 34.8 g/dL (31.0-37.0); MCV 95.8 fL (80.0-100.0); Mean Platelet Volume 7.3; Monocytes # (A) 0.5 k/uL (0-1.0); Monocytes % (A) 4 %; Neutrophils # (A) 7.7 k/uL (1.3-7.7); Neutrophils % (A) 60 %; Platelet Count 241 k/uL (150-450); RBC 3.86 m/uL (4.30-5.90); RDW 12.7 % (11.5-15.5); WBC 12.8 k/uL (3.8-10.6)
[2023-07-02] MEDS: ZINC SULFATE 220 MG CAP PO SCH (08:11)
[2023-07-02] MEDS: lisinopriL 20 MG TAB PO SCH (08:11)
[2023-07-02] MEDS: ASCORBIC ACID 500 MG TAB PO SCH ×2 (08:11→21:37)
[2023-07-02] MEDS: TAMSULOSIN 0.4 MG CAP.ER.24H PO SCH (08:11)
[2023-07-02] MEDS: APIXABAN 5 MG TAB PO SCH ×2 (08:11→21:37)
[2023-07-02] MEDS: ISOSORBIDE MONONITRATE 20 MG TAB PO SCH ×2 (08:11→21:37)
[2023-07-02] MEDS: FUROSEMIDE 20 MG TAB PO SCH (08:12)
[2023-07-02] MEDS: CHOLECALCIFEROL 25 MCG (1000 IU) TABLET PO SCH (08:12)
[2023-07-02] MEDS: ATORVASTATIN 80 MG TAB PO SCH (08:12)
[2023-07-02] MEDS: ASPIRIN 81 MG PO SCH (08:12)
[2023-07-02] MEDS: FINASTERIDE 5 MG TAB PO SCH (08:12)
[2023-07-02] MEDS: ALBUTEROL NEBULIZED 2.5 MG/3 ML INHALATION SCH ×4 (08:30→20:51)
[2023-07-02 08:31] LABS: ALT 32 U/L (4-49); AST 25 U/L (17-59); African American GFR (CKD) >90 (>60 ml/min/1.73 sqM); Albumin 2.7 g/dL (3.5-5.0); Alkaline Phosphatase 70 U/L (38-126); Anion Gap 8 mmol/L; Blood Urea Nitrogen 28 mg/dL (9-20); Calcium 8.1 mg/dL (8.4-10.2); Carbon Dioxide 21 mmol/L (22-30); Chloride 106 mmol/L (98-107); Glucose 106 mg/dL (74-99); Non-African American GFR(CKD) 81 (>60 ml/min/1.73 sqM); Potassium 3.8 mmol/L (3.5-5.1); Sodium 135 mmol/L (137-145)
--- NOTE | 2023-07-02 14:22 | P.PN ---
Subjective Progress Note Date: 07/02/23 This is an 88-year-old male patient of eduardo and Dr. Myers with a past medical history coronary artery disease status post PCI of the LAD and RCA, history of hypertension, hyperlipidemia BPH, neck and back surgeries for degenerative arthritis, patient was hospitalized at [facility] in 05/31/2023 and he was found to have a significant stenosis of the proximal LAD after heart cath physician that was done by Dr. Quintana, he underwent left heart catheterization with PCI of the proximal LAD using a size stents, and he did have a balloon angioplasty for dilatation as well, patient has done well over the last few months, patient presented to the emergency department at [facility] last night because of generalized fatigue and weakness and not able to do anything, unfortunately his who is the primary caregiver for him was diagnosed with COVID-19 and she has been in bed due to her illness, so he was brought to the ER for evaluation, he was tested positive for COVID-19, and the patient was found to have a slight elevation of the troponin I suggestive of a type II LA without evidence of non-ST elevation LA, and because of the presentation he was admitted to the hospital will be seen in consultation by pulmonary and cardiology, patient went into atrial fibrillation with rapid ventricular response and developed to have significant issues with urinary retention and had Cardenas catheter in place and was supposed to go to [facility] but family elected to take him home instead, and he had Home Health care after he has his Catheter removed and he ended up no able to urinate so they place another one, patient came in today for hospital follow up in the office and I was with other patient when became pale and lost consciousness while sitting and turned blue Immediately we placed him on O2 and elevated his legs he regained consciousness and was on 2 L NC unfortunately he was bradycardic was in low 40 nd he became nauseated with dry heaving, 911 was called and patient was transported to the ER for evaluation and he did receive Atropine and his his heart rate went into the sixties then down into the fourties again, so he was admitted to the hospital for evaluation by cardiology for possible PPM 07/02. Patient seen and examined. Denies any lightheadedness or dizziness. Vital signs stable REVIEW OF SYSTEMS: CONSTITUTIONAL: No fever, no malaise,. CARDIOVASCULAR: No chest pain, no palpitations, no syncope. PULMONARY: No shortness of breath, no cough, GASTROINTESTINAL: No diarrhea, no nausea, no vomiting, no abdominal pain. NEUROLOGICAL: No headaches, no weakness, PHYSICAL EXAMINATION: GENERAL: The patient is alert and oriented x3, not in any acute distress. Well developed, well nourished. HEENT: Pupils are round and equally reacting to light. EOMI. No scleral icterus. No conjunctival pallor. Normocephalic, atraumatic. No pharyngeal erythema. No thyromegaly. CARDIOVASCULAR: S1 and S2 present. No murmurs, rubs, or gallops. PULMONARY: Chest is clear to auscultation, no wheezing or crackles. ABDOMEN: Soft, nontender, nondistended, normoactive bowel sounds. No palpable organomegaly. MUSCULOSKELETAL: No joint swelling or deformity. EXTREMITIES: No cyanosis, clubbing, or pedal edema. NEUROLOGICAL: Gross neurological examination did not reveal any focal deficits. SKIN: No rashes. Assessment and plan Orthostatic hypotension with syncope due to bradycardic response. atrial fibrillation with bradycardia Monitor vital signs Monitor CBC Monitor orthostatics Avoid AV octavio blocking agent Cardiology on board Urinary retention Enlarged prostate post Cardenas catheter placement. we will continue with Tamsulosin 0.4 mg po daily. History of CAD post-PCI of the LAD and RCA. Continue aspirin 81 mg once every day, Lipitor 80 mg once every day, lisinopril 10 mg every day, isosorbide 20 mg orally twice every day Hypertension and hypertensive cardiovascular disease. Continue lisinopril 10 mg orally once every day. Hyperlipidemia. Continue Lipitor 80 mg once every day, keep LDL cholesterol 55-70. Recent COVID-19 infection. recovering well. 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 Continue with physical therapy as needed. Chronic diastolic heart failure. Continue patient on lisinopril 10 mg orally once every day, continue with Lasix 40 mg orally once every day Tuesday along with potassium supplements. Labs and medication were reviewed.. Continue same treatment. Continue with symptomatic treatment. Resume home medication. Monitor labs and vitals. DVT and GI prophylaxis. Further recommendations as per clinical course of the patient Dictation was produced using [employer] software. please excuse any grammatical, word or spelling errors. Objective - Vital Signs Vital signs: Vital Signs Temp 97.9 F 07/02/23 13:35 Pulse 65 07/02/23 13:35 Resp 16 07/02/23 13:35 BP 120/52 07/02/23 13:35 Pulse Ox 98 07/02/23 13:35 FiO2 Intake & Output 07/01/23 07/02/23 07/02/23 18:59 06:59 18:59 Intake Total 1080 Output Total 450 Balance 630 Weight 73.936 kg Intake: Oral 1080 Output: Urine 450 Other: Voiding Method Indwelling Catheter # Bowel Movements 1 - Labs CBC & Chem 7: 07/02/23 07:50 07/02/23 07:50 Labs: Abnormal Lab Results - Last 24 Hours (Table) 07/02/23 07/02/23 Range/Units 07:50 07:50 WBC 12.8 H (3.8-10.6) k/uL RBC 3.86 L (4.30-5.90) m/uL Hgb 12.9 L (13.0-17.5) gm/dL Hct 37.0 L (39.0-53.0) % Sodium 135 L (137-145) mmol/L Carbon Dioxide 21 L (22-30) mmol/L BUN 28 H (9-20) mg/dL Glucose 106 H (74-99) mg/dL Calcium 8.1 L (8.4-10.2) mg/dL Total Protein 5.0 L (6.3-8.2) g/dL Albumin 2.7 L (3.5-5.0) g/dL
--- NOTE | 2023-07-02 16:20 | P.CRDCN ---
History of Present Illness Consult date: 07/02/23 Reason for Consult (text): Syncope History of present illness: The patient is an 88-year-old male who presented to the hospital after experiencing a syncopal episode and his primary care provider's office. According to the H&P the patient had become blue and unresponsive. Heart rate at that time was noted to be in the 40s. Patient was given atropine by EMS with brief improvement, then bradycardia back down into the 40s. The patient states he has had several similar episodes in the past, however not to this extent. DIAGNOSTICS: EKG shows sinus rhythm with first-degree AV block and PVCs Echocardiogram in early June shows preserved LV function with mild to moderate aortic calcifications Lab data: WBC 12.8, hemoglobin 12.9, hematocrit 37.0, platelet 241, sodium 135, potassium 3.8, BUN 20, creatinine 0.80, AST 25, ALT 32, troponin negative 2 REVIEW OF SYSTEMS: No fever or chills. No cough or expectoration. No diaphoresis. Patient denies headache, dizziness, blurred vision, double vision. Patient denies any stomach discomfort. No nausea, vomiting. No hematochezia. No hematemesis. Denies any black stools or blood in his stools. Denies dysuria or hematuria. No muscle weakness or numbness. Denies chest pain or chest pressure. No current dizziness or lightheadedness at rest. No dyspnea. PHYSICAL EXAMINATION: This is a 88-year-old male in no apparent distress at the time of my examination. HEENT: Head is atraumatic, normocephalic. Pupils are equal, round. Sclerae anicteric. Conjunctivae are clear. Mucous membranes of the mouth are moist. Neck is supple. There is no jugular venous distention. No carotid bruit is heard. CHEST EXAMINATION: Lungs are clear to auscultation. No chest wall tenderness is noted on palpation or with deep breathing. HEART EXAMINATION: Heart regular rate and rhythm. S1, S2 heard. Systolic murmur. No gallops or rub. ABDOMEN: Soft, nontender. Bowel sounds are heard. No organomegaly noted. EXTREMITIES: 2+ peripheral pulses with no evidence of peripheral edema and no calf tenderness noted. NEUROLOGIC EXAMINATION: Patient is awake, alert and oriented x3. FINAL ASSESSMENT AND PLAN: Bradycardia, likely vasovagal First-degree AV block Coronary artery disease Hypertension Dyslipidemia Reason Covid Infection PLAN: Avoid AV octavio blocking agents Check orthostatic blood pressures Heart rate/arrhythmia monitoring outpatient Further recommendations previous on clinical course I am dictating on behalf of Dr Miguel Tyson's history/physical and assessment/plan. Past Medical History Past Medical History: Hyperlipidemia, Hypertension, Myocardial Infarction ([place]), Osteoarthritis (OA), Pneumonia Additional Past Medical History / Comment(s): has some balance issue, uses cane when outside home, sinus problems, Last Myocardial Infarction Date:: 1993 History of Any Multi-Drug Resistant Organisms: None Reported Past Surgical History: Back Surgery, Heart Catheterization, Tonsillectomy Additional Past Surgical History / Comment(s): 2 Neck surgery, STATES HAS "PLASTIC" IN NECK, METAL IN BACK, STENT IN HEART X2, NORTH CATARACTS, Past Anesthesia/Blood Transfusion Reactions: No Reported Reaction Additional Past Anesthesia/Blood Transfusion Reaction / Comment(s): denies PONV Date of Last Stent Placement:: 2012 Past Psychological History: No Psychological Hx Reported Smoking Status: Former smoker Past Alcohol Use History: None Reported Past Drug Use History: None Reported - Past Family History Father History Unknown: Yes Family Medical History: Myocardial Infarction ([place]) Additional Family Medical History / Comment(s): Several mi's, but from complications of pedestrain/mva-head injury. Mother History Unknown: Yes Family Medical History: CVA/TIA Daughter(s) History Unknown: Yes Family Medical History: Diabetes Mellitus Medications and Allergies Home Medications Medication Instructions Recorded Confirmed Type Isosorbide Mononitrate [Ismo] 20 mg PO BID 03/25/14 07/01/23 History Atorvastatin Calcium [Lipitor] 80 mg PO DAILY 08/12/18 07/01/23 History Finasteride [Proscar] 5 mg PO DAILY 08/12/18 07/01/23 History Tamsulosin [Flomax] 0.4 mg PO DAILY 12/07/19 07/01/23 History Aspirin EC [Ecotrin Low Dose] 81 mg PO DAILY 06/12/21 07/01/23 History Propranolol [Inderal] 10 mg PO DAILY 06/11/23 07/01/23 History Ascorbic Acid [Vitamin C] 500 mg PO BID tab 06/15/23 07/01/23 Rx Cholecalciferol [Vitamin D3 (25 50 mcg PO DAILY tab 06/15/23 07/01/23 Rx Mcg = 1000 Iu)] Zinc Sulfate [Orazinc] 220 mg PO DAILY cap 06/15/23 07/01/23 Rx lisinopriL [Zestril] 20 mg PO DAILY #30 tab 06/20/23 07/01/23 Rx Albuterol Inhaler [Ventolin Hfa 2 puff INHALATION RT-QID #1 each 06/21/23 07/01/23 Rx Inhaler] Apixaban [Eliquis] 5 mg PO BID #60 tab 06/21/23 07/01/23 Rx Furosemide [Lasix] 20 mg PO DAILY #30 tab 06/21/23 07/01/23 Rx Pantoprazole [Protonix] 40 mg PO DAILY #30 tab 06/21/23 07/01/23 Rx Allergies Allergy/AdvReac Type Severity Reaction Status Date / Time adhesive tape Allergy pulls skin Verified 07/01/23 13:55 off adhesive dressings Allergy pulls skin Uncoded 07/01/23 13:55 off Physical Exam Vitals: Vital Signs Temp Pulse Pulse Resp BP BP Pulse Ox 07/02/23 15:52 68 07/02/23 15:43 65 07/02/23 13:35 97.9 F 65 16 120/52 98 07/02/23 11:52 63 07/02/23 11:40 61 07/02/23 11:20 70 18 132/79 96 07/02/23 08:39 59 L 07/02/23 08:30 57 L 07/02/23 08:01 97.8 F 51 L 17 128/72 96 07/02/23 00:55 50 L 16 104/60 94 L 07/01/23 20:01 53 L 07/01/23 20:00 97.9 F 59 L 16 118/106 97 07/01/23 19:50 54 L 07/01/23 17:00 64 19 106/54 95 Intake and Output 07/02/23 07/02/23 07/02/23 06:59 14:59 22:59 Intake Total 540 Output Total 450 Balance 90 Intake: Oral 540 Output: Urine 450 Other: Voiding Method Indwelling Catheter Results 07/02/23 07:50 07/02/23 07:50 Cardiac Enzymes 07/01/23 07/02/23 Range/Units 16:09 07:50 AST 25 (17-59) U/L Troponin I 0.014 (0.000-0.034) ng/mL CBC 07/02/23 Range/Units 07:50 WBC 12.8 H (3.8-10.6) k/uL RBC 3.86 L (4.30-5.90) m/uL Hgb 12.9 L (13.0-17.5) gm/dL Hct 37.0 L (39.0-53.0) % Plt Count 241 (150-450) k/uL Comprehensive Metabolic Panel 07/02/23 Range/Units 07:50 Sodium 135 L (137-145) mmol/L Potassium 3.8 (3.5-5.1) mmol/L Chloride 106 (98-107) mmol/L Carbon Dioxide 21 L (22-30) mmol/L BUN 28 H (9-20) mg/dL Creatinine 0.80 (0.66-1.25) mg/dL Glucose 106 H (74-99) mg/dL Calcium 8.1 L (8.4-10.2) mg/dL AST 25 (17-59) U/L ALT 32 (4-49) U/L Alkaline Phosphatase 70 (38-126) U/L Total Protein 5.0 L (6.3-8.2) g/dL Albumin 2.7 L (3.5-5.0) g/dL Current Medications Generic Name Dose Route Start Last Admin Trade Name Freq PRN Reason Stop Dose Admin Albuterol Sulfate 2.5 mg 07/01/23 16:00 07/02/23 15:43 Albuterol Nebulized 2.5 Mg/3 Ml INHALATION 2.5 mg RT-QID FATMATA Administration Apixaban 5 mg 07/01/23 21:00 07/02/23 08:11 Apixaban 5 Mg Tab PO 5 mg BID FATMATA Administration Protocol Ascorbic Acid 500 mg 07/01/23 21:00 07/02/23 08:11 Ascorbic Acid 500 Mg Tab PO 500 mg BID FATMATA Administration Aspirin 81 mg 07/02/23 09:00 07/02/23 08:12 Aspirin 81 Mg PO 81 mg DAILY FATMATA Administration Atorvastatin Calcium 80 mg 07/02/23 09:00 07/02/23 08:12 Atorvastatin 80 Mg Tab PO 80 mg DAILY FATMATA Administration Cholecalciferol 50 mcg 07/02/23 09:00 07/02/23 08:12 Cholecalciferol 25 Mcg (1000 Iu) Tablet PO 50 mcg DAILY FATMATA Administration Finasteride 5 mg 07/02/23 09:00 07/02/23 08:12 Finasteride 5 Mg Tab PO 5 mg DAILY FATMATA Administration Furosemide 20 mg 07/02/23 09:00 07/02/23 08:12 Furosemide 20 Mg Tab PO 20 mg DAILY FATMATA Administration Isosorbide Mononitrate 20 mg 07/01/23 21:00 07/02/23 08:11 Isosorbide Mononitrate 20 Mg Tab PO 20 mg BID FATMATA Administration Lisinopril 20 mg 07/02/23 09:00 07/02/23 08:11 Lisinopril 20 Mg Tab PO 20 mg DAILY FATMATA Administration Naloxone HCl 0.2 mg 07/01/23 14:02 Naloxone 0.4 Mg/Ml 1 Ml Vial IV Q2M PRN Opioid Reversal Pantoprazole Sodium 40 mg 07/02/23 07:30 07/02/23 08:02 Pantoprazole 40 Mg Tablet PO 40 mg [id number] FATMATA Administration Tamsulosin HCl 0.4 mg 07/02/23 09:00 07/02/23 08:11 Tamsulosin 0.4 Mg Cap.Er.24h PO 0.4 mg DAILY FATMATA Administration Zinc Sulfate 220 mg 07/02/23 09:00 07/02/23 08:11 Zinc Sulfate 220 Mg Cap PO 220 mg DAILY FATMATA Administration Intake and Output 07/02/23 07/02/23 07/02/23 06:59 14:59 22:59 Intake Total 540 Output Total 450 Balance 90 Intake: Oral 540 Output: Urine 450 Other: Voiding Method Indwelling Catheter 07/02/23 07:50 07/02/23 07:50
[2023-07-03 04:36] VITALS: TEMP 98.2
[2023-07-03] MEDS: PANTOPRAZOLE 40 MG TABLET PO SCH (06:24)
[2023-07-03] MEDS: ALBUTEROL NEBULIZED 2.5 MG/3 ML INHALATION SCH ×3 (08:12→15:19)
[2023-07-03] MEDS: FINASTERIDE 5 MG TAB PO SCH (09:31)
[2023-07-03] MEDS: ISOSORBIDE MONONITRATE 20 MG TAB PO SCH (09:32)
[2023-07-03] MEDS: FUROSEMIDE 20 MG TAB PO SCH (09:32)
[2023-07-03] MEDS: ASCORBIC ACID 500 MG TAB PO SCH (09:32)
[2023-07-03] MEDS: APIXABAN 5 MG TAB PO SCH (09:32)
[2023-07-03] MEDS: TAMSULOSIN 0.4 MG CAP.ER.24H PO SCH (09:32)
[2023-07-03] MEDS: ATORVASTATIN 80 MG TAB PO SCH (09:32)
[2023-07-03] MEDS: ZINC SULFATE 220 MG CAP PO SCH (09:32)
[2023-07-03] MEDS: ASPIRIN 81 MG PO SCH (09:32)
[2023-07-03] MEDS: lisinopriL 20 MG TAB PO SCH (09:32)
[2023-07-03] MEDS: CHOLECALCIFEROL 25 MCG (1000 IU) TABLET PO SCH (09:33)
[2023-07-03 09:52] VITALS: BP 144/76; RESP 16
[2023-07-03 11:48] VITALS: PULSE 54
--- NOTE | 2023-07-03 12:26 | P.PN ---
Subjective Patient is resting comfortably in bed. He walks to the bathroom. Telemetry has not shown any bradycardia at all no evidence for sick sinus syndrome or AV block Telemetry shows only PVCs intermittently His twelve-lead EKG has shown sinus rhythm normal DE narrow QRS PACs and PVCs Patient had a syncopal spell while sitting in his doctor's office and went pulseless briefly According to his he has had at least 3-4 episodes where he suddenly became short of breath became near syncopal of the episode fast She has brought him to the hospital on those occasions but no diagnosis was ever made Normal hemoglobin Normal electrolytes TSH 1.04 Normal electrolytes Normal troponin Impression Recurrent episodes of presyncope and one episode of syncope when he became pulseless No evidence for sick sinus syndrome sinus bradycardia or AV block on telemetry or EKG Intermittent PVCs Normal troponins Normal TSH Recent echo was normal normal LV function on June 14 Successful stenting of the proximal LAD last year in May Prior coronary stenting in 2018 The cause of his loss of consciousness and presyncope is not clear Add a detailed discussion with the patient and his and this could represent sudden sinus arrest, paroxysmal AV block or a ventricular tachyarrhythmia I would recommend #1 hold propranolol. He takes only 10 mg a day Continue all other medications Implantation of a loop monitor today. The pros and cons and the reasons for doing so discussed and they're agreeable to plan Objective - Vital Signs Vital signs: Vital Signs Temp 98.2 F 07/03/23 04:00 Pulse 54 L 07/03/23 11:32 Resp 16 07/03/23 08:00 BP 144/76 07/03/23 08:00 Pulse Ox 97 07/03/23 08:00 FiO2 Intake & Output 07/02/23 07/03/23 07/03/23 18:59 06:59 18:59 Intake Total 180 540 180 Output Total 200 500 700 Balance -20 40 -520 Weight 73.936 kg Intake: Oral 180 540 180 Output: Urine 200 500 700 Other: Voiding Method Indwelling Catheter Indwelling Catheter - Labs CBC & Chem 7: 07/02/23 07:50 07/02/23 07:50
[2023-07-03] MEDS ORDERED: SODIUM CHLORIDE 0.9% 500 ML 500 ML IV ONE (12:35)
[2023-07-03] MEDS ORDERED: LIDOCAINE 1% INJ 10MG/ML (20 ML MDV) SQ ONE (12:43)
--- NOTE | 2023-07-03 13:01 | P.EPPROC ---
- EP Procedure Note Electrophysiology Procedure Note: Loop monitor implant Primary physicians: Dr. Michel Concrete Polisher: Dr. Myers Indication: Syncope, recurrent presyncope Patient was brought to the EP lab in a fasting state. Written informed consent was obtained prior to the procedure. The left pectoral area was prepped and draped per protocol. Intravenous antibiotic was administered preoperatively. A subcutaneous Loop monitor was implanted successfully and the wound was closed per protocol. The device was programmed to detect significant anthony- arrhythmic and tachy-arrhythmic events, per protocol. Device and programming details: Syncope protocol
--- NOTE | 2023-07-03 13:03 | P.PN ---
Subjective Progress Note Date: 07/03/23 This is an 88-year-old male patient of eduardo and Dr. Myers with a past medical history coronary artery disease status post PCI of the LAD and RCA, history of hypertension, hyperlipidemia BPH, neck and back surgeries for degenerative arthritis, patient was hospitalized at [facility] in 05/31/2023 and he was found to have a significant stenosis of the proximal LAD after heart cath physician that was done by Dr. Quintana, he underwent left heart catheterization with PCI of the proximal LAD using a size stents, and he did have a balloon angioplasty for dilatation as well, patient has done well over the last few months, patient presented to the emergency department at [facility] last night because of generalized fatigue and weakness and not able to do anything, unfortunately his who is the primary caregiver for him was diagnosed with COVID-19 and she has been in bed due to her illness, so he was brought to the ER for evaluation, he was tested positive for COVID-19, and the patient was found to have a slight elevation of the troponin I suggestive of a type II CA without evidence of non-ST elevation CA, and because of the presentation he was admitted to the hospital will be seen in consultation by pulmonary and cardiology, patient went into atrial fibrillation with rapid ventricular response and developed to have significant issues with urinary retention and had Cardenas catheter in place and was supposed to go to [facility] but family elected to take him home instead, and he had Home Health care after he has his Catheter removed and he ended up no able to urinate so they place another one, patient came in today for hospital follow up in the office and I was with other patient when became pale and lost consciousness while sitting and turned blue Immediately we placed him on O2 and elevated his legs he regained consciousness and was on 2 L NC unfortunately he was bradycardic was in low 40 nd he became nauseated with dry heaving, 911 was called and patient was transported to the ER for evaluation and he did receive Atropine and his his heart rate went into the sixties then down into the fourties again, so he was admitted to the hospital for evaluation by cardiology for possible PPM 07/02. Patient seen and examined. Denies any lightheadedness or dizziness. Vital signs stable 07/03. Patient seen and examined. No acute issues overnight. Heart rate in 60s. Denies any chest pain, denies any palpitations. Denies any lightheadedness or dizziness. REVIEW OF SYSTEMS: CONSTITUTIONAL: No fever, no malaise,. CARDIOVASCULAR: No chest pain, no palpitations, no syncope. PULMONARY: No shortness of breath, no cough, GASTROINTESTINAL: No diarrhea, no nausea, no vomiting, no abdominal pain. NEUROLOGICAL: No headaches, no weakness, PHYSICAL EXAMINATION: GENERAL: The patient is alert and oriented x3, not in any acute distress. Well developed, well nourished. HEENT: Pupils are round and equally reacting to light. EOMI. No scleral icterus. No conjunctival pallor. Normocephalic, atraumatic. No pharyngeal erythema. No thyromegaly. CARDIOVASCULAR: S1 and S2 present. No murmurs, rubs, or gallops. PULMONARY: Chest is clear to auscultation, no wheezing or crackles. ABDOMEN: Soft, nontender, nondistended, normoactive bowel sounds. No palpable organomegaly. MUSCULOSKELETAL: No joint swelling or deformity. EXTREMITIES: No cyanosis, clubbing, or pedal edema. NEUROLOGICAL: Gross neurological examination did not reveal any focal deficits. SKIN: No rashes. Assessment and plan Orthostatic hypotension with syncope due to bradycardic response. atrial fibrillation with bradycardia Monitor vital signs Monitor CBC Monitor orthostatics Avoid AV octavio blocking agent Cardiology on board, planning implantation of loop recorder Urinary retention Enlarged prostate post Cardenas catheter placement. we will continue with Tamsulosin 0.4 mg po daily. History of CAD post-PCI of the LAD and RCA. Continue aspirin 81 mg once every day, Lipitor 80 mg once every day, lisinopril 10 mg every day, isosorbide 20 mg orally twice every day Hypertension and hypertensive cardiovascular disease. Continue lisinopril 10 mg orally once every day. Hyperlipidemia. Continue Lipitor 80 mg once every day, keep LDL cholesterol 55-70. Recent COVID-19 infection. recovering well. 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 Continue with physical therapy as needed. Chronic diastolic heart failure. Continue patient on lisinopril 10 mg orally once every day, continue with Lasix 40 mg orally once every day Tuesday along with potassium supplements. Labs and medication were reviewed.. Continue same treatment. Continue with symptomatic treatment. Resume home medication. Monitor labs and vitals. DVT and GI prophylaxis. Further recommendations as per clinical course of the patient Dictation was produced using [employer] dictation software. please excuse any grammatical, word or spelling errors. Objective - Vital Signs Vital signs: Vital Signs Temp 98.2 F 07/03/23 04:00 Pulse 65 07/03/23 08:24 Resp 16 07/03/23 08:00 BP 144/76 07/03/23 08:00 Pulse Ox 97 07/03/23 08:00 FiO2 Intake & Output 07/02/23 07/03/23 07/03/23 18:59 06:59 18:59 Intake Total 180 540 180 Output Total 200 500 700 Balance -20 40 -520 Weight 73.936 kg Intake: Oral 180 540 180 Output: Urine 200 500 700 Other: Voiding Method Indwelling Catheter - Labs CBC & Chem 7: 07/02/23 07:50 07/02/23 07:50
--- NOTE | 2023-07-03 13:36 | P.DS ---
Providers Date of admission: 07/01/23 14:01 Expected date of discharge: 07/03/23 Attending physician: Nayeli Michel Consults: 07/01/23 14:02 Consult Physician Urgent Consulting Provider: Audrey Buckner Consult Reason/Comments: Syncope, bradycardia Do you want consulting provider notified?: Yes Primary care physician: Nayeli Michel Hospital Course: Discharge diagnoses; Orthostatic hypotension with syncope due to bradycardic response. atrial fibrillation with bradycardia Monitor vital signs Monitor CBC Monitor orthostatics Avoid AV octavio blocking agent Cardiology on board, planning implantation of loop recorder, loop recorder was placed, cardiology cleared the patient for discharge and recommended discontinuing propranolol Urinary retention Enlarged prostate post Cardenas catheter placement. we will continue with Tamsulosin 0.4 mg po daily. History of CAD post-PCI of the LAD and RCA. Continue aspirin 81 mg once every day, Lipitor 80 mg once every day, lisinopril 10 mg every day, isosorbide 20 mg orally twice every day Hypertension and hypertensive cardiovascular disease. Continue lisinopril 10 mg orally once every day. Hyperlipidemia. Continue Lipitor 80 mg once every day, keep LDL cholesterol 55-70. Recent COVID-19 infection. recovering well. 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 Continue with physical therapy as needed. Chronic diastolic heart failure. Continue patient on lisinopril 10 mg orally once every day, continue with Lasix 40 mg orally once every day Tuesday along with potassium supplements. Hospital course; This is an 88-year-old male patient of eduardo and Dr. Myers with a past medical history coronary artery disease status post PCI of the LAD and RCA, history of hypertension, hyperlipidemia BPH, neck and back surgeries for degenerative arthritis, patient was hospitalized at [facility] in 05/31/2023 and he was found to have a significant stenosis of the proximal LAD after heart cath physician that was done by Dr. Quintana, he underwent left heart catheterization with PCI of the proximal LAD using a size stents, and he did have a balloon angioplasty for dilatation as well, patient has done well over the last few months, patient presented to the emergency department at [facility] last night because of generalized fatigue and weakness and not able to do anything, unfortunately his who is the primary caregiver for him was diagnosed with COVID-19 and she has been in bed due to her illness, so he was brought to the ER for evaluation, he was tested positive for COVID-19, and the patient was found to have a slight elevation of the troponin I suggestive of a type II VT without evidence of non-ST elevation VT, and because of the presentation he was admitted to the hospital will be seen in consultation by pulmonary and cardiology, patient went into atrial fibrillation with rapid ventricular response and developed to have significant issues with urinary retention and had Cardenas catheter in place and was supposed to go to [facility] but family elected to take him home instead, and he had Home Health care after he has his Catheter removed and he ended up no able to urinate so they place another one, patient came in today for hospital follow up in the office and I was with other patient when became pale and lost consciousness while sitting and turned blue Immediately we placed him on O2 and elevated his legs he regained consciousness and was on 2 L NC unfortunately he was bradycardic was in low 40 nd he became nauseated with dry heaving, 911 was called and patient was transported to the ER for evaluation and he did receive Atropine and his his heart rate went into the sixties then down into the fourties again, so he was admitted to the hospital for evaluation by cardiology for possible PPM 07/02. Patient seen and examined. Denies any lightheadedness or dizziness. Vital signs stable 07/03. Patient seen and examined. No acute issues overnight. Heart rate in 60s. Denies any chest pain, denies any palpitations. Denies any lightheadedness or dizziness. Patient had loop recorder placed by cardiology, cardiology cleared the patient for discharge, recommend discontinuing propranolol. PHYSICAL EXAMINATION: GENERAL: The patient is alert and oriented x3, not in any acute distress. Well developed, well nourished. HEENT: Pupils are round and equally reacting to light. EOMI. No scleral icterus. No conjunctival pallor. Normocephalic, atraumatic. No pharyngeal erythema. No thyromegaly. CARDIOVASCULAR: S1 and S2 present. No murmurs, rubs, or gallops. PULMONARY: Chest is clear to auscultation, no wheezing or crackles. ABDOMEN: Soft, nontender, nondistended, normoactive bowel sounds. No palpable organomegaly. MUSCULOSKELETAL: No joint swelling or deformity. EXTREMITIES: No cyanosis, clubbing, or pedal edema. NEUROLOGICAL: Gross neurological examination did not reveal any focal deficits. SKIN: No rashes. Dictation was produced using [employer] dictation software. please excuse any grammatical, word or spelling errors. Patient Condition at Discharge: Fair Plan - Discharge Summary Discharge Rx Participant: Yes New Discharge Prescriptions: Continue Isosorbide Mononitrate [Ismo] 20 mg PO BID Atorvastatin Calcium [Lipitor] 80 mg PO DAILY Finasteride [Proscar] 5 mg PO DAILY Tamsulosin [Flomax] 0.4 mg PO DAILY Cholecalciferol [Vitamin D3 (25 Mcg = 1000 Iu)] 50 mcg PO DAILY tab lisinopriL [Zestril] 20 mg PO DAILY #30 tab Apixaban [Eliquis] 5 mg PO BID #60 tab Albuterol Inhaler [Ventolin Hfa Inhaler] 2 puff INHALATION RT-QID #1 each Furosemide [Lasix] 20 mg PO DAILY #30 tab Aspirin EC [Ecotrin Low Dose] 81 mg PO DAILY Zinc Sulfate [Orazinc] 220 mg PO DAILY cap Ascorbic Acid [Vitamin C] 500 mg PO BID tab Pantoprazole [Protonix] 40 mg PO DAILY #30 tab Discontinued Propranolol [Inderal] 10 mg PO DAILY Discharge Medication List Isosorbide Mononitrate [Ismo] 20 mg PO BID 03/25/14 [History] Atorvastatin Calcium [Lipitor] 80 mg PO DAILY 08/12/18 [History] Finasteride [Proscar] 5 mg PO DAILY 08/12/18 [History] Tamsulosin [Flomax] 0.4 mg PO DAILY 12/07/19 [History] Aspirin EC [Ecotrin Low Dose] 81 mg PO DAILY 06/12/21 [History] Ascorbic Acid [Vitamin C] 500 mg PO BID tab 06/15/23 [Rx] Cholecalciferol [Vitamin D3 (25 Mcg = 1000 Iu)] 50 mcg PO DAILY tab 06/15/23 [Rx] Zinc Sulfate [Orazinc] 220 mg PO DAILY cap 06/15/23 [Rx] lisinopriL [Zestril] 20 mg PO DAILY #30 tab 06/20/23 [Rx] Albuterol Inhaler [Ventolin Hfa Inhaler] 2 puff INHALATION RT-QID #1 each 06/21/23 [Rx] Apixaban [Eliquis] 5 mg PO BID #60 tab 06/21/23 [Rx] Furosemide [Lasix] 20 mg PO DAILY #30 tab 06/21/23 [Rx] Pantoprazole [Protonix] 40 mg PO DAILY #30 tab 06/21/23 [Rx] Follow up Appointment(s)/Referral(s): Hamilton Myers MD [STAFF PHYSICIAN] - 1 Week (Device clinic follow-up in one week for suture removal) Nayeli Michel MD [Primary Care Provider] - 1-2 days Discharge Disposition: HOME SELF-CARE
== END 2023-07-03 16:36 | disposition home or self-care (01) | DRG 261 ==
LOC: EC 11:34 → 1SOBS 14:01 → 3SCARD 15:50
PROVIDERS: ADMIT Internal Medicine; ATTEND Internal Medicine
PROC: 4A12X4Z Monitoring of Cardiac Electrical Activity, External Approach (ICD-10-PCS; 2023-07-03)
PROC: 0JH602Z Insertion of Monitoring Device into Chest Subcutaneous Tissue and Fascia, Open Approach (ICD-10-PCS; principal; 2023-07-03 13:00)
DX: R00.1 Bradycardia, unspecified (principal); I50.32 Chronic diastolic (congestive) heart failure; E11.649 Type 2 diabetes mellitus with hypoglycemia without coma; E78.5 Hyperlipidemia, unspecified; I11.0 Hypertensive heart disease with heart failure; M19.90 Unspecified osteoarthritis, unspecified site; E86.1 Hypovolemia; I44.0 Atrioventricular block, first degree; I95.1 Orthostatic hypotension; G25.0 Essential tremor; I25.2 Old myocardial infarction; Z87.01 Personal history of pneumonia (recurrent); I48.91 Unspecified atrial fibrillation; Z86.16 Personal history of COVID-19; M50.30 Other cervical disc degeneration, unspecified cervical region; M51.36 Other intervertebral disc degeneration, lumbar region; N40.1 Benign prostatic hyperplasia with lower urinary tract symptoms; R33.8 Other retention of urine; Z95.5 Presence of coronary angioplasty implant and graft; Z79.01 Long term (current) use of anticoagulants; Z79.82 Long term (current) use of aspirin; R29.6 Repeated falls; Z79.899 Other long term (current) drug therapy; Z82.49 Family history of ischemic heart disease and other diseases of the circulatory system; Z98.42 Cataract extraction status, left eye; Z98.41 Cataract extraction status, right eye; Z91.81 History of falling
CPT/HCPCS: 33285; 36415; 80053; 83735; 84443; 84484; 85025; 85610; 85730; 93005; 94640; 99285

== ENCOUNTER 2023-09-20 10:21 | Day surgery (SDC) | payer MEDICARE ==
[2023-09-15 09:39] VITALS: BMI 22.2
--- NOTE | 2023-09-19 14:38 | P.HPIHPCON ---
History of Present Illness H&P Date: 09/19/23 Chief Complaint: BPH This is a 88-year-old male with history of urinary retention, has failed multiple trial voids. Underwent a cystoscopy that showed evidence of an obstructive prostate. Discussed with him and his family the option of a TURP. Aware of the risk which includes but not limited to bleeding, infection, urinary incontinence, retrograde ejaculation. Discussed also potential persistent retention even with a TURP. Risk of anesthesia was also discussed. He understood all the risk and agreed to proceed Consent for Procedure: I have explained the operation/procedure to the patient, including the risks, benefits, side effects, alternative therapies (including not receiving the proposed treatment or service), the likelihood of the patient achieving his/her goals, and potential recuperation problems for the procedure/sedation/analgesia, as well as any blood products, if indicated. I also explained to the patient the risks, benefits and side effects of the alternatives, as well as the risks related to not receiving the proposed procedure, care, treatment, or services. 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, METAL IN BACK, STENT IN HEART X2, NORTH CATARACTS Past Anesthesia/Blood Transfusion Reactions: No Reported Reaction Additional Past Anesthesia/Blood Transfusion Reaction / Comment(s): no hx blood transfusion Date of Last Stent Placement:: 2022 Smoking Status: Former smoker - Past Family History Father History Unknown: Yes Family Medical History: Myocardial Infarction ([place]) Additional Family Medical History / Comment(s): Several mi's- with major [place] Mother History Unknown: Yes Family Medical History: CVA/TIA Daughter(s) History Unknown: Yes Family Medical History: Diabetes Mellitus Medications and Allergies Home Medications Medication Instructions Recorded Confirmed Type Isosorbide Mononitrate [Ismo] 20 mg PO BID 03/25/14 09/15/23 History Atorvastatin Calcium [Lipitor] 80 mg PO DAILY 08/12/18 09/15/23 History Finasteride [Proscar] 5 mg PO QAM 08/12/18 09/15/23 History Tamsulosin [Flomax] 0.4 mg PO QAM 12/07/19 09/15/23 History Aspirin EC [Ecotrin Low Dose] 81 mg PO HS 06/12/21 09/15/23 History Cholecalciferol [Vitamin D3 (25 50 mcg PO DAILY tab 06/15/23 09/15/23 Rx Mcg = 1000 Iu)] Albuterol Inhaler [Ventolin Hfa 2 puff INHALATION RT-QID #1 each 06/21/23 09/15/23 Rx Inhaler] Furosemide [Lasix] 20 mg PO DAILY #30 tab 06/21/23 09/15/23 Rx Cyanocobalamin [Vitamin B-12] 500 mcg PO DAILY 09/15/23 09/15/23 History Potassium Chloride [Klor-Con M20] 20 meq PO DAILY 09/15/23 09/15/23 History lisinopriL [Zestril] 10 mg PO QAM 09/15/23 09/15/23 History Allergies Allergy/AdvReac Type Severity Reaction Status Date / Time adhesive tape Allergy pulls skin Verified 09/15/23 09:01 off adhesive dressings Allergy pulls skin Uncoded 09/15/23 09:01 off Surgical - Exam - General no distress, no pain - Eyes normal ocular movement, no pale - ENT normal nares, normal mucosa - Respiratory normal expansion, normal respiratory effort - Abdomen Abdomen: soft, non tender - Psychiatric oriented to time, oriented to person, oriented to place Assessment and Plan Assessment: OR for a TURP
[~2023-09-20 10:21] MED LIST changes: -ALPRAZolam 0.25 MG TAB PO PRN; -ASPIRIN 325 MG TAB PO ONE; +DEXAMETHASONE SOD PHOSPHATE 4 MG/ML 1 ML VIAL IV ONE; +HYDROmorphone 0.5 MG/0.5 ML SYRINGE IVP PRN; +ONDANSETRON 4 MG/2 ML VIAL IVP ONE; -SODIUM CHLORIDE 0.9% 1,000 ML in EMPTY BAG 1 BAG IV ONE
[2023-09-20] MEDS: LACTATED RINGERS 1,000 ML IV SCH (11:07)
[2023-09-20 11:11] VITALS: TEMP 97.7
[2023-09-20] MEDS ORDERED: PHENYLEPHRINE 10 MG/ML VIAL ONE (11:18)
[2023-09-20] MEDS ORDERED: fentaNYL (PF) 50 MCG/ML 2 ML AMP ONE (11:18)
[2023-09-20] MEDS ORDERED: PROPOFOL 10 MG/ML 20 ML VIAL IV ONE (11:18)
[2023-09-20] MEDS ORDERED: GLYCOPYRROLATE 0.2 MG/ML 2 ML VIAL ONE (11:18)
[2023-09-20] MEDS ORDERED: LIDOCAINE 1% INJ 10MG/ML (20 ML MDV) ONE (11:18)
--- NOTE | 2023-09-20 12:28 | P.OP ---
Date of Procedure: 09/20/23 Preoperative Diagnosis: BPH Postoperative Diagnosis: Same Procedure(s) Performed: TURP ( bipolar) Implants: none Anesthesia: LACI Surgeon: Al Zuleta Estimated Blood Loss (ml): 50 Pathology: other (Trilobar hyperplasia, with an enlarged median lobe with a high median bar) Condition: stable Disposition: PACU Indications for Procedure: This is a 88-year-old male with history of urinary retention, has failed multiple trial voids. Underwent a cystoscopy that showed evidence of an obstructive prostate. Discussed with him and his family the option of a TURP. Aware of the risk which includes but not limited to bleeding, infection, urinary incontinence, retrograde ejaculation. Discussed also potential persistent retention even with a TURP. Risk of anesthesia was also discussed. He understood all the risk and agreed to procee Description of Procedure: Patient brought to the operating room, general anesthesia was induced. He was prepped and draped in sterile fashion and placed in a dorsolithotomy position. Resectoscope fitted with a 25 [place] sheath was inserted per urethra, cystoscopy was performed which showed a trilobar hyperplasia with an enlarged median lobe with a high median bar, the prostate was relatively short but occlusive. Using the bipolar resectoscope the prostate was resected down to the surgical capsule, resection was carried distal to the bladder neck but staying proximal to the Veru, at the end of resection the prostatic fossa was wide open. All bleeding was controlled with cautery. All prostate adenoma was irrigated out. Repeat cystoscopy showed no evidence of bleeding, any residual obstructive tissue or injury to the bladder or ureteral orifice ease. At this time resectoscope was withdrawn and a 20 [place] Cardenas was placed with return of clear urine. The Cardenas was irrigated without difficulties. Patient tolerated procedure well was taken to recovery in stable condition
[2023-09-20 12:57] VITALS: RESP 16
[2023-09-20] MEDS: LACTATED RINGERS 1,000 ML IV ONE (13:44)
[2023-09-20 14:45] VITALS: BP 153/63; PULSE 58
== END 2023-09-20 14:34 | disposition home or self-care (01) ==
LOC: OR 10:21
PROVIDERS: ATTEND Urology
DX: N40.0 Benign prostatic hyperplasia without lower urinary tract symptoms (principal); N41.1 Chronic prostatitis; I10 Essential (primary) hypertension; E78.5 Hyperlipidemia, unspecified; I25.2 Old myocardial infarction; M19.90 Unspecified osteoarthritis, unspecified site; J18.9 Pneumonia, unspecified organism; Z87.891 Personal history of nicotine dependence; Z79.82 Long term (current) use of aspirin; Z79.51 Long term (current) use of inhaled steroids; Z88.8 Allergy status to other drugs, medicaments and biological substances; Z79.899 Other long term (current) drug therapy
CPT/HCPCS: 52601; 88305; J0690; J2001; J3010; J2704; J2371

== ENCOUNTER 2023-09-21 12:48 | Emergency (ER) | payer MEDICARE ==
[2023-09-21 13:25] VITALS: RESP 18
--- NOTE | 2023-09-21 14:35 | ED ---
General Adult HPI - General Chief complaint: Recheck/Abnormal Lab/Rx Stated complaint: post op comp Time Seen by Provider: 09/21/23 12:55 Source: EMS Mode of arrival: EMS Limitations: no limitations - History of Present Illness Initial comments: 88-year-old male presents emergency department with reported hypotension. Patient had transurethral resection of the prostate yesterday. Had an home care nurse come to the house today who took his blood pressure. He was found to be hypotensive and therefore she recommended that the patient come to the hospital for evaluation. The patient denies any complaints. No lightheadedness, shortness of breath. March catheter is in place with a slight pink-tinged urine. Denies any heavy bleeding. No abdominal pain. Patient has not had any change in his medications. No diarrhea. Admits to good oral intake. No other alleviating, precipitating modifying factors - Related Data Home Medications Medication Instructions Recorded Confirmed Isosorbide Mononitrate [Ismo] 20 mg PO BID 03/25/14 09/20/23 Atorvastatin Calcium [Lipitor] 80 mg PO DAILY 08/12/18 09/20/23 Finasteride [Proscar] 5 mg PO QAM 08/12/18 09/20/23 Tamsulosin [Flomax] 0.4 mg PO QAM 12/07/19 09/20/23 Aspirin EC [Ecotrin Low Dose] 81 mg PO HS 06/12/21 09/20/23 Cyanocobalamin [Vitamin B-12] 500 mcg PO DAILY 09/15/23 09/20/23 Potassium Chloride [Klor-Con M20] 20 meq PO DAILY 09/15/23 09/20/23 lisinopriL [Zestril] 10 mg PO QAM 09/15/23 09/20/23 Previous Rx's Medication Instructions Recorded Cholecalciferol [Vitamin D3 (25 50 mcg PO DAILY tab 06/15/23 Mcg = 1000 Iu)] Albuterol Inhaler [Ventolin Hfa 2 puff INHALATION RT-QID #1 each 06/21/23 Inhaler] Furosemide [Lasix] 20 mg PO DAILY #30 tab 06/21/23 Allergies Allergy/AdvReac Type Severity Reaction Status Date / Time adhesive tape Allergy pulls skin Verified 09/21/23 13:06 off adhesive dressings Allergy pulls skin Uncoded 09/21/23 13:06 off Review of Systems ROS Statement: Those systems with pertinent positive or pertinent negative responses have been documented in the HPI. ROS Other: All systems not noted in ROS Statement are negative. Past Medical History Past Medical History: Hyperlipidemia, Hypertension, Myocardial Infarction ([place]), Osteoarthritis (OA), Pneumonia, Prostate Disorder Additional Past Medical History / Comment(s): enlarged prostate-currently has march catheter, has some balance issue-uses walker when outside home, sinus problems Last Myocardial Infarction Date:: 1993 History of Any Multi-Drug Resistant Organisms: None Reported Past Surgical History: Back Surgery, Heart Catheterization, Heart Catheterization With Stent, Tonsillectomy Additional Past Surgical History / Comment(s): 2 Neck surgery, STATES HAS "PLASTIC" IN NECK, METAL IN BACK, STENT IN HEART X2, NORTH CATARACTS Past Anesthesia/Blood Transfusion Reactions: No Reported Reaction Additional Past Anesthesia/Blood Transfusion Reaction / Comment(s): no hx blood transfusion Date of Last Stent Placement:: 2022 Past Psychological History: No Psychological Hx Reported Smoking Status: Former smoker Past Alcohol Use History: None Reported Past Drug Use History: None Reported - Past Family History Father History Unknown: Yes Family Medical History: Myocardial Infarction ([place]) Additional Family Medical History / Comment(s): Several mi's- with major [place] Mother History Unknown: Yes Family Medical History: CVA/TIA Daughter(s) History Unknown: Yes Family Medical History: Diabetes Mellitus General Exam Limitations: no limitations General appearance: alert, in no apparent distress Head exam: Present: atraumatic, normocephalic, normal inspection Eye exam: Present: normal appearance, PERRL, EOMI. Absent: scleral icterus, conjunctival injection, periorbital swelling ENT exam: Present: normal exam, mucous membranes moist Neck exam: Present: normal inspection. Absent: tenderness, meningismus, lymphadenopathy Respiratory exam: Present: normal lung sounds bilaterally. Absent: respiratory distress, wheezes, rales, rhonchi, stridor Cardiovascular Exam: Present: regular rate, normal rhythm, normal heart sounds. Absent: systolic murmur, diastolic murmur, rubs, gallop, clicks GI/Abdominal exam: Present: soft, normal bowel sounds. Absent: distended, tenderness, guarding, rebound, rigid Extremities exam: Present: normal inspection, full ROM, normal capillary refill. Absent: tenderness, pedal edema, joint swelling, calf tenderness Back exam: Present: normal inspection Neurological exam: Present: alert, oriented X3, CN II-XII intact Psychiatric exam: Present: normal affect, normal mood Skin exam: Present: warm, dry, intact, normal color. Absent: rash Course Vital Signs 09/21/23 09/21/23 09/21/23 12:50 13:07 14:49 Temperature 97.8 F 98.6 F Pulse Rate 79 57 L 53 L Respiratory 18 18 18 Rate Blood Pressure 124/45 118/62 143/53 O2 Sat by Pulse 95 95 96 Oximetry Medical Decision Making - Medical Decision Making Was pt. sent in by a medical professional or institution (, PA, STUFFED CASING TIER, urgent care, hospital, or snf...) When possible be specific @ -Home care nurse Did you speak to anyone other than the patient for history (EMS, parent, family, police, friend...)? What history was obtained from this source @ -No Did you review nursing and triage notes (agree or disagree)? Why? @ -I reviewed and agree with nursing and triage notes Were old charts reviewed (outside hosp., previous admission, EMS record, old EKG, old radiological studies, urgent care reports/EKG's, snf records)? Report findings @ -I reviewed patient's procedure note from yesterday Differential Diagnosis (chest pain, altered mental status, abdominal pain women, abdominal pain men, vaginal bleeding, weakness, fever, dyspnea, syncope, headache, dizziness, GI bleed, back pain, seizure, CVA, palpatations, mental health, musculoskeletal)? @ -Dehydration, blood loss anemia, renal failure EKG interpreted by me (3pts min.). @ -Not done X-rays interpreted by me (1pt min.). @ -None done CT interpreted by me (1pt min.). @ -None done U/S interpreted by me (1pt. min.). @ -None done What testing was considered but not performed or refused? (CT, X-rays, U/S, labs)? Why? @ -Laboratory studies however patient is reporting no symptoms What meds were considered but not given or refused? Why? @ -None Did you discuss the management of the patient with other professionals (professionals i.e. , PA, STUFFED CASING TIER, lab, RT, psych nurse, social sciences lecturer, ward attendant, teacher, credit administration officer, casework specialist)? Give summary @ -No Was smoking cessation discussed for >3mins.? @ -No Was critical care preformed (if so, how long)? @ -No Were there social determinants of health that impacted care today? How? (Homelessness, low income, unemployed, alcoholism, drug addiction, transportation, low edu. Level, literacy, decrease access to med. care, long-term, rehab)? @ -No Was there de-escalation of care discussed even if they declined (Discuss DNR or withdrawal of care, Hospice)? DNR status @ -No What co-morbidities impacted this encounter? (DM, HTN, Smoking, COPD, CAD, Cancer, CVA, ARF, Chemo, Hep., AIDS, mental health diagnosis, sleep apnea, morbid obesity)? @ -Enlarged prostate Was patient admitted / discharged? Hospital course, mention meds given and route, prescriptions, significant lab abnormalities, going to OR and other pertinent info. @ -Patient seen and evaluated in hallway 26. We did record several blood pressures on the patient all of which are within normal limits. Orthostatic blood pressures were obtained and the patient does have a slight drop upon ambulation however reports no symptoms. I did discuss these results with the patient. He does not want to undergo any further evaluation as he has no symptoms. Patient would like to be discharged home. Recommended that he increase fluid intake. Follow-up with his doctor at his scheduled appointment and return for any new or worsening symptoms. Patient agreeable to plan was discharged in stable condition Undiagnosed new problem with uncertain prognosis? @ -No Drug Therapy requiring intensive monitoring for toxicity (Heparin, Nitro, Insulin, Cardizem)? @ -No Were any procedures done? @ -No Diagnosis/symptom? @ -subjective hypotension, status post TURP Acute, or Chronic, or Acute on Chronic? @ -Acute Uncomplicated (without systemic symptoms) or Complicated (systemic symptoms)? @ -Uncomplicated Side effects of treatment? @ -No Exacerbation, Progression, or Severe Exacerbation? @ -No Poses a threat to life or bodily function? How? (Chest pain, [place], [place], pneumonia, PE, COPD, DKA, ARF, appy, cholecystitis, CVA, Diverticulitis, Homicidal, Suicidal, threat to staff... and all critical care pts) @ -No Disposition Clinical Impression: Orthostatic hypotension, S/P TURP Disposition: HOME SELF-CARE Condition: Stable Instructions (If sedation given, give patient instructions): Hypotension (ED) Additional Instructions: Your blood pressure dropped a bit when you sat up. Increase your fluid intake. Follow up with your pcp in 2-4 days and return for any new or worsening symptoms. Is patient prescribed a controlled substance at d/c from ED?: No Referrals: Nayeli Michel MD [Primary Care Provider] - 1-2 days Time of Disposition: 14:35
[2023-09-21 15:17] VITALS: BP 143/53; PULSE 53; TEMP 98.6
== END 2023-09-21 14:50 | disposition home or self-care (01) ==
LOC: EC 12:48
DX: I95.1 Orthostatic hypotension (principal); N40.0 Benign prostatic hyperplasia without lower urinary tract symptoms; Z87.891 Personal history of nicotine dependence; Z91.09 Other allergy status, other than to drugs and biological substances; Z90.79 Acquired absence of other genital organ(s)
CPT/HCPCS: 99284

== ENCOUNTER 2023-10-17 12:06 | Emergency (ER) | payer MEDICARE ==
--- NOTE | 2023-10-17 12:30 | ED ---
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 Fall Witnessed: yes, by family Place Fall Occurred: home Loss of Consciousness: none Prolonged Down Time?: no Symptoms Prior to Fall: none Location: back Location - Extremities: Right: Shoulder (Right chest) Severity: severe Severity scale (1-10): 8 Context: tripped/slipped Associated Symptoms: denies <Nino Biggs - Last Filed: 10/17/23 12:33> <Judah Bedoya - Last Filed: 10/17/23 16:12> - General Chief Complaint: Back Pain/Injury Stated Complaint: R Flank Pain Time Seen by Provider: 10/17/23 12:10 - History of Present Illness Initial Comments: This is a 88-year-old male on [employer] coming in for a fall. 2 days ago he fell hitting his right side of his back on a chair with severe pain severe swelling to his back and the pain has been increasing and worse. No blood in the urine no blood in the stool no real abdominal pain just pain to his posterior back lower ribs and right flank. (Nino Biggs) - Related Data Home Medications Medication Instructions Recorded Confirmed Isosorbide Mononitrate [Ismo] 20 mg PO BID 03/25/14 10/17/23 Atorvastatin Calcium [Lipitor] 80 mg PO DAILY 08/12/18 10/17/23 Finasteride [Proscar] 5 mg PO DAILY 08/12/18 10/17/23 Tamsulosin [Flomax] 0.4 mg PO DAILY 12/07/19 10/17/23 Aspirin EC [Ecotrin Low Dose] 81 mg PO DAILY 06/12/21 10/17/23 Cyanocobalamin [Vitamin B-12] 500 mcg PO DAILY 09/15/23 10/17/23 Potassium Chloride [Klor-Con M20] 20 meq PO DAILY 09/15/23 10/17/23 lisinopriL [Zestril] 20 mg PO DAILY 09/15/23 10/17/23 Albuterol Inhaler [Ventolin Hfa 2 puff INHALATION RT-QID PRN 04/08/24 04/08/24 Inhaler] Apixaban [Eliquis] 5 mg PO BID 10/17/23 10/17/23 Previous Rx's Medication Instructions Recorded Cholecalciferol [Vitamin D3 (25 50 mcg PO DAILY tab 06/15/23 Mcg = 1000 Iu)] Furosemide [Lasix] 20 mg PO DAILY #30 tab 06/21/23 Allergies Allergy/AdvReac Type Severity Reaction Status Date / Time adhesive tape Allergy pulls skin Verified 10/17/23 15:46 off adhesive dressings Allergy pulls skin Uncoded 10/17/23 15:46 off Review of Systems ROS Other: All systems not noted in ROS Statement are negative. <Nino Biggs - Last Filed: 10/17/23 12:33> ROS Other: All systems not noted in ROS Statement are negative. <Judah Bedoya - Last Filed: 10/17/23 16:12> ROS Statement: Those systems with pertinent positive or pertinent negative responses have been documented in the HPI. 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, METAL IN BACK, STENT IN HEART X2, NORTH CATARACTS Past Anesthesia/Blood Transfusion Reactions: No Reported Reaction Additional Past Anesthesia/Blood Transfusion Reaction / Comment(s): no hx blood transfusion Date of Last Stent Placement:: 2022 Past Psychological History: No Psychological Hx Reported Smoking Status: Former smoker Past Alcohol Use History: None Reported Past Drug Use History: None Reported - Past Family History Father History Unknown: Yes Family Medical History: Myocardial Infarction (ID) Additional Family Medical History / Comment(s): Several mi's- with major ID Mother History Unknown: Yes Family Medical History: CVA/TIA Daughter(s) History Unknown: Yes Family Medical History: Diabetes Mellitus <Nino Biggs - Last Filed: 10/17/23 12:33> General Exam Limitations: no limitations General appearance: alert, in no apparent distress Head exam: Present: atraumatic, normocephalic, normal inspection Eye exam: Present: normal appearance, PERRL, EOMI. Absent: scleral icterus, conjunctival injection, periorbital swelling ENT exam: Present: normal exam, mucous membranes moist Neck exam: Present: normal inspection. Absent: tenderness, meningismus, lymphadenopathy Respiratory exam: Present: normal lung sounds bilaterally. Absent: respiratory distress, wheezes, rales, rhonchi, stridor Cardiovascular Exam: Present: regular rate, normal rhythm, normal heart sounds. Absent: systolic murmur, diastolic murmur, rubs, gallop, clicks GI/Abdominal exam: Present: soft, normal bowel sounds. Absent: distended, tenderness, guarding, rebound, rigid Extremities exam: Present: normal inspection, full ROM, normal capillary refill. Absent: tenderness, pedal edema, joint swelling, calf tenderness Back exam: Present: normal inspection Neurological exam: Present: alert, oriented X3, CN II-XII intact Psychiatric exam: Present: normal affect, normal mood Skin exam: Present: warm, dry, intact, normal color. Absent: rash <Nino Biggs B - Last Filed: 10/17/23 12:33> Course <Nino Biggs B - Last Filed: 10/17/23 12:33> Vital Signs 10/17/23 10/17/23 10/17/23 12:08 12:30 13:00 Temperature 97.8 F Pulse Rate 62 59 L 53 L Respiratory 20 18 16 Rate Blood Pressure 113/83 113/83 113/92 O2 Sat by Pulse 98 98 97 Oximetry 10/17/23 10/17/23 13:30 14:00 Temperature Pulse Rate 52 L 52 L Respiratory 18 18 Rate Blood Pressure 117/90 111/50 O2 Sat by Pulse 97 100 Oximetry - Reevaluation(s) Reevaluation #1: 10/17/23 12:34 Medical records reviewed (Nino Biggs) Reevaluation #2: 10/17/23 12:34 Patient's pain is improved (Nino Biggs) Reevaluation #4: Was pt. sent in by a medical professional or institution (DEBORAH Desai, CONCRETE PAVING SUPERVISOR, urgent care, hospital, or shelter...) When possible be specific @ -no Did you speak to anyone other than the patient for history (EMS, parent, family, police, friend...)? What history was obtained from this source @ -no Did you review nursing and triage notes (agree or disagree)? Why? @ -agree Are old charts reviewed (outside hosp., previous admission, EMS record, old EKG, old radiological studies, urgent care reports/EKG's, shelter records)? Report findings @ -yes Differential Diagnosis (chest pain, altered mental status, abdominal pain women, abdominal pain men, vaginal bleeding, weakness, fever, dyspnea, syncope, headache, dizziness, GI bleed, back pain, seizure, CVA, palpatations, mental health, musculoskeletal)? @ -prior EKG interpreted by me (3pts min.). @ -yes X-rays interpreted by me (1pt min.). @ -yes negative for acute disease CT interpreted by me (1pt min.). @ -no U/S interpreted by me (1pt. min.). @ -no What testing was considered but not performed or refused? (CT, X-rays, U/S, labs)? Why? @ -none What meds were considered but not given or refused? Why? @ -none Did you discuss the management of the patient with other professionals ( professionals i.e. DEBORAH Desai, CONCRETE PAVING SUPERVISOR, lab, RT, psych nurse, social group worker, risk investigator, teacher, customs patrol officer, case packer)? Give summary @ -no Was smoking cessation discussed for >3mins.? @ -no Was critical care preformed (if so, how long)? @ -no Were there social determinants of health that impacted care today? How? (Homelessness, low income, unemployed, alcoholism, drug addiction, transportation, low edu. Level, literacy, decrease access to med. care, senior living, rehab)? @ -none Was there de-escalation of care discussed even if they declined (Discuss DNR or withdrawal of care, Hospice)? DNR status @ -no What co-morbidities impacted this encounter? (DM, HTN, Smoking, COPD, CAD, Cancer, CVA, ARF, Chemo, Hep., AIDS, mental health diagnosis, sleep apnea, morbid obesity)? @ -none Was patient admitted / discharged? Hospital course, mention meds given and route, prescriptions, significant lab abnormalities, going to OR and other pertinent info. @ - Undiagnosed new problem with uncertain prognosis? @ -no Drug Therapy requiring intensive monitoring for toxicity (Heparin, Nitro, Insulin, Cardizem)? @ -no Were any procedures done? @ -no Diagnosis/symptom? @ - Acute, or Chronic, or Acute on Chronic? @ -Acute Uncomplicated (without systemic symptoms) or Complicated (systemic symptoms)? @ -Complicated Side effects of treatment? @ -no Exacerbation, Progression, or Severe Exacerbation? @ -exacerbation Poses a threat to life or bodily function? How? (Chest pain, USA, ID, pneumonia, PE, COPD, DKA, ARF, appy, cholecystitis, CVA, Diverticulitis, Homicidal, Suicidal, threat to staff... and all critical care pts) @ -yes (Nino Biggs) Medical Decision Making - Lab Data Result diagrams: 10/17/23 12:47 10/17/23 12:47 <Judah Bedoya - Last Filed: 10/17/23 16:12> - Medical Decision Making See above CT scan of abdomen pelvis shows no traumatic injury interpreted by myself. Gallstones. Patient reevaluated and resting comfortably in bed. Patient and family are updated on results and need for follow-up. Diagnosis: Fall, flank contusion Acute, acute (Judah Bedoya) - Lab Data Lab Results 10/17/23 10/17/23 10/17/23 Range/Units 12:47 12:47 12:47 WBC 7.9 (3.8-10.6) k/uL RBC 3.79 L (4.30-5.90) m/uL Hgb 12.2 L (13.0-17.5) gm/dL Hct 37.2 L (39.0-53.0) % MCV 98.3 (80.0-100.0) fL MCH 32.2 (25.0-35.0) pg MCHC 32.7 (31.0-37.0) g/dL RDW 12.9 (11.5-15.5) % Plt Count 232 (150-450) k/uL MPV 7.3 Neutrophils % 63 % Lymphocytes % 29 % Monocytes % 4 % Eosinophils % 3 % Basophils % 1 % Neutrophils # 5.0 (1.3-7.7) k/uL Lymphocytes # 2.3 (1.0-4.8) k/uL Monocytes # 0.3 (0-1.0) k/uL Eosinophils # 0.2 (0-0.7) k/uL Basophils # 0.0 (0-0.2) k/uL PT 11.0 (10.0-12.5) sec INR 1.0 (<1.2) APTT 24.0 (22.0-30.0) sec Sodium 140 (137-145) mmol/L Potassium 5.0 (3.5-5.1) mmol/L Chloride 111 H (98-107) mmol/L Carbon Dioxide 23 (22-30) mmol/L Anion Gap 6 mmol/L BUN 30 H (9-20) mg/dL Creatinine 1.27 H (0.66-1.25) mg/dL Est GFR (CKD-EPI)AfAm 59 (>60 ml/min/1.73 sqM) Est GFR (CKD-EPI)NonAf 51 (>60 ml/min/1.73 sqM) Glucose 117 H (74-99) mg/dL Calcium 9.1 (8.4-10.2) mg/dL Total Bilirubin 0.9 (0.2-1.3) mg/dL AST 22 (17-59) U/L ALT 15 (4-49) U/L Alkaline Phosphatase 75 (38-126) U/L Total Protein 5.6 L (6.3-8.2) g/dL Albumin 3.3 L (3.5-5.0) g/dL Amylase 43 (30-110) U/L Lipase 58 (23-300) U/L Disposition <Nino Biggs - Last Filed: 10/17/23 12:33> Is patient prescribed a controlled substance at d/c from ED?: No Time of Disposition: 16:12 <Judah Bedoya - Last Filed: 10/17/23 16:12> Clinical Impression: Fall Disposition: HOME SELF-CARE Instructions (If sedation given, give patient instructions): Acute Low Back Pain (ED) Additional Instructions: [id number] Tylenol as needed. Please do follow-up with your primary care physician in the next 1 or 2 days for recheck. Return for increased pain, weakness, bleeding, worsening or changing symptoms or any other concerns. Referrals: Nayeli Michel MD [Primary Care Provider] - 1-2 days
[2023-10-17] MEDS: SODIUM CHLORIDE 0.9% 1,000 ML IV STA (13:00)
[2023-10-17 13:08] LABS: Basophils % (A) 1 %; Eosinophils # (A) 0.2 k/uL (0-0.7); Eosinophils % (A) 3 %; HCT 37.2 % (39.0-53.0); HGB 12.2 gm/dL (13.0-17.5); Lymphocytes # (A) 2.3 k/uL (1.0-4.8); Lymphocytes % (A) 29 %; MCH 32.2 pg (25.0-35.0); MCHC 32.7 g/dL (31.0-37.0); MCV 98.3 fL (80.0-100.0); Mean Platelet Volume 7.3; Monocytes # (A) 0.3 k/uL (0-1.0); Monocytes % (A) 4 %; Neutrophils % (A) 63 %; Platelet Count 232 k/uL (150-450); RBC 3.79 m/uL (4.30-5.90); RDW 12.9 % (11.5-15.5); WBC 7.9 k/uL (3.8-10.6)
[2023-10-17 13:17] LABS: ALT 15 U/L (4-49); AST 22 U/L (17-59); African American GFR (CKD) 59 (>60 ml/min/1.73 sqM); Albumin 3.3 g/dL (3.5-5.0); Alkaline Phosphatase 75 U/L (38-126); Amylase 43 U/L (30-110); Anion Gap 6 mmol/L; Blood Urea Nitrogen 30 mg/dL (9-20); Calcium 9.1 mg/dL (8.4-10.2); Carbon Dioxide 23 mmol/L (22-30); Chloride 111 mmol/L (98-107); Glucose 117 mg/dL (74-99); Lipase 58 U/L (23-300); Non-African American GFR(CKD) 51 (>60 ml/min/1.73 sqM); Sodium 140 mmol/L (137-145); Total Bilirubin 0.9 mg/dL (0.2-1.3); Total Protein 5.6 g/dL (6.3-8.2)
[2023-10-17] MEDS: KETOROLAC 15 MG/ML 1 ML VIAL IVP STA (15:55)
--- NOTE | 2023-10-17 15:56 | CT ---
EXAMINATION TYPE: CT ChestAbdPelvis w con DATE OF EXAM: 10/17/2023 INDICATION: fall xfew days ago. pt c/o rt flank pain COMPARISON: 02/20/2022 CT DLP: 1336.5 mGycm CONTRAST: Performed without Oral Contrast and with IV Contrast, patient injected with 80ml mL of Isovue 300. TECHNIQUE: Axial images at 5 mm thick sections. Reconstructed images in the coronal plane. Delayed images through the kidneys. FINDINGS: CT CHEST: Portion of the thyroid visualized is normal. No suspicious lung nodules or focal infiltrates are present. Moderate emphysematous changes are prese nt. Very minimal pulmonary fibrosis may be along the posterior lateral right lung. Mild atelectasis a ppears to be in the bilateral dependent lung bases. No enlarged mediastinal or hilar adenopathy is evident. The ascending aorta diameter at the level of the main pulmonary artery is 3.6 cm. The main pulmonary artery diameter at the bifurcation is 2.[address] ABDOMEN: Liver: Normal Spleen: Normal Pancreas: Atrophic Adrenal glands: The adrenal glands are normal. Gallbladder: Gallstones are present. Kidneys: No masses are evident. No hydronephrosis is present. No cysts are present. Aorta: Vascular calcification is within the aorta. Inferior vena cava: Normal. CT PELVIS: Loops of bowel within the abdomen and pelvis are normal. The studies without oral contrast limiti ng evaluation. Appendix: Not identified. No dilated tubular structure or inflammatory changes evident. Urinary bladder: Normal. Genitourinary structures: Prostate appears unremarkable. Osseous structures: No suspicious lytic or sclerotic lesions. No displaced rib fractures are identifi ed. No pneumothorax is evident. IMPRESSION: 1. No acute posttraumatic changes. 2. Cholelithiasis.
[2023-10-17] MEDS: ACETAMINOPHEN IV (For NPO) 1,000 MG in EMPTY BAG 1 BAG IVPB STA (16:31)
[2023-10-17] MEDS: MORPHINE SULFATE 4 MG/ML SYRINGE IVP STA (16:31)
[2023-10-17 17:04] VITALS: BP 110/55; PULSE 54; RESP 16; TEMP 97.6
== END 2023-10-17 16:34 | disposition home or self-care (01) ==
LOC: EC 12:06
DX: R07.81 Pleurodynia (principal); Z87.891 Personal history of nicotine dependence; Z91.09 Other allergy status, other than to drugs and biological substances; W18.09XA Striking against other object with subsequent fall, initial encounter
CPT/HCPCS: 36415; 80053; 82150; 83690; 85025; 85610; 85730; 71260; 74177; 99284; 96374; 96361 ×4; J1885; Q9967

== ENCOUNTER 2023-10-28 11:43 | Emergency (ER) | payer MEDICARE ==
[2023-10-28 12:12] VITALS: PULSE 60; TEMP 97.2
[2023-10-28 12:58] LABS: Basophils # (A) 0.1 k/uL (0-0.2); Basophils % (A) 1 %; Eosinophils # (A) 0.3 k/uL (0-0.7); Eosinophils % (A) 4 %; HCT 33.7 % (39.0-53.0); Lymphocytes # (A) 2.7 k/uL (1.0-4.8); Lymphocytes % (A) 33 %; MCH 31.8 pg (25.0-35.0); MCHC 32.5 g/dL (31.0-37.0); MCV 97.7 fL (80.0-100.0); Mean Platelet Volume 7.7; Monocytes # (A) 0.3 k/uL (0-1.0); Monocytes % (A) 4 %; Neutrophils # (A) 4.7 k/uL (1.3-7.7); Neutrophils % (A) 57 %; Platelet Count 238 k/uL (150-450); RBC 3.45 m/uL (4.30-5.90); RDW 13.7 % (11.5-15.5); WBC 8.2 k/uL (3.8-10.6)
[2023-10-28 13:03] LABS: Partial Thromboplastin Time 23.7 sec (22.0-30.0); Prothrombin Time 11.3 sec (10.0-12.5)
[2023-10-28 13:11] LABS: ALT 19 U/L (4-49); AST 21 U/L (17-59); African American GFR (CKD) 82 (>60 ml/min/1.73 sqM); Alkaline Phosphatase 100 U/L (38-126); Anion Gap 5 mmol/L; Blood Urea Nitrogen 29 mg/dL (9-20); Calcium 8.8 mg/dL (8.4-10.2); Carbon Dioxide 18 mmol/L (22-30); Chloride 114 mmol/L (98-107); Glucose 110 mg/dL (74-99); Non-African American GFR(CKD) 71 (>60 ml/min/1.73 sqM); Potassium 4.6 mmol/L (3.5-5.1); Sodium 137 mmol/L (137-145); Total Bilirubin 0.7 mg/dL (0.2-1.3); Total Protein 5.5 g/dL (6.3-8.2)
--- NOTE | 2023-10-28 13:19 | XR ---
EXAMINATION TYPE: XR chest 2V DATE OF EXAM: 10/28/2023 1:14 PM CLINICAL INDICATION:Male, 88 years old with history of Chest Pain; [facility] COMPARISON: Chest radiographs from 06/14/2023 TECHNIQUE: XR chest 2V Frontal and lateral views of the chest. FINDINGS: Lungs/Pleura: There is no evidence of pleural effusion, focal consolidation, or pneumothorax. Pulmonary vascularity: Unremarkable. Heart/mediastinum: Cardiomediastinal silhouette is unremarkable. Atherosclerotic calcifications are seen in the aorta. A loop recorder projects over the left thorax over the heart. Musculoskeletal: No acute osseous pathology. There is lower spine fixation hardware is present. Fusion hardware in the lower cervical spine appears intact. Other findings: None IMPRESSION: No acute cardiopulmonary disease/process.
[2023-10-28 14:06] LABS: Appearance,Urine Cloudy (Clear); Bilirubin,Urine Negative (Negative); Blood,Urine Small (Negative); Color,Urine Colorless; Glucose,Urine (UA) Negative (Negative); Hyaline Casts,Urine 1 /lpf (0-2); Ketones,Urine Negative (Negative); Leukocyte Esterase,Urine Large (Negative); Mucus,Urine Rare /hpf; Nitrite,Urine Negative (Negative); Protein,Urine Negative (Negative); RBC,Urine 16 /hpf (0-5); Specific Gravity,Urine 1.012 (1.001-1.035); Squamous Epithelial Cell,Urine 2 /hpf (0-4); Urobilinogen,Urine <2.0 mg/dL (<2.0); WBC,Urine 126 /hpf (0-5)
--- NOTE | 2023-10-28 14:18 | ED ---
General Adult HPI - General Chief complaint: Chest Pain Stated complaint: Cardiac Issues Time Seen by Provider: 10/28/23 12:09 Source: EMS Mode of arrival: EMS Limitations: no limitations - History of Present Illness Initial comments: 88-year-old man who presents emergency department from home for palpitations. Patient states that he awoke from sleep and was acutely disoriented. This caused him extreme stress and he started having racing heart. He denies having any chest pain. States that he was short of breath. His called EMS. Upon their arrival the patient had started to feel better. Arriving to the hospital the patient states he has no complaints at this time. He has had several episodes like this in the past. Denies having any diagnosis. He denies any nausea or vomiting. No abdominal pain. No headache or visual changes. No weakness in his extremities. No other alleviating, precipitating modifying factors - Related Data Home Medications Medication Instructions Recorded Confirmed Isosorbide Mononitrate [Ismo] 20 mg PO BID 03/25/14 10/28/23 Atorvastatin Calcium [Lipitor] 80 mg PO DAILY 08/12/18 10/28/23 Finasteride [Proscar] 5 mg PO DAILY 08/12/18 10/28/23 Tamsulosin [Flomax] 0.4 mg PO DAILY 12/07/19 10/28/23 Aspirin EC [Ecotrin Low Dose] 81 mg PO DAILY 06/12/21 10/28/23 Cyanocobalamin [Vitamin B-12] 500 mcg PO DAILY 09/15/23 10/28/23 Potassium Chloride [Klor-Con M20] 20 meq PO DAILY 09/15/23 10/28/23 lisinopriL [Zestril] 20 mg PO DAILY 09/15/23 10/28/23 Albuterol Inhaler [Ventolin Hfa 2 puff INHALATION RT-QID PRN 10/17/23 10/28/23 Inhaler] Apixaban [Eliquis] 5 mg PO BID 10/17/23 10/28/23 Previous Rx's Medication Instructions Recorded Cholecalciferol [Vitamin D3 (25 50 mcg PO DAILY tab 06/15/23 Mcg = 1000 Iu)] Furosemide [Lasix] 20 mg PO DAILY #30 tab 06/21/23 Cephalexin [Keflex] 500 mg PO Q6HR #20 cap 10/28/23 Allergies Allergy/AdvReac Type Severity Reaction Status Date / Time adhesive tape AdvReac pulls skin Verified 10/28/23 12:30 off adhesive dressings AdvReac pulls skin Uncoded 10/28/23 12:30 off Review of Systems ROS Statement: Those systems with pertinent positive or pertinent negative responses have been documented in the HPI. ROS Other: All systems not noted in ROS Statement are negative. Past Medical History Past Medical History: Hyperlipidemia, Hypertension, Myocardial Infarction ([place]), Osteoarthritis ([place]), Pneumonia, Prostate Disorder Additional Past Medical History / Comment(s): enlarged prostate-currently has march catheter, has some balance issue-uses walker when outside home, sinus problems Last Myocardial Infarction Date:: 1993 History of Any Multi-Drug Resistant Organisms: None Reported Past Surgical History: Back Surgery, Heart Catheterization, Heart Catheterization With Stent, Tonsillectomy Additional Past Surgical History / Comment(s): 2 Neck surgery, STATES HAS "PLASTIC" IN NECK, METAL IN BACK, STENT IN HEART X2, NORTH CATARACTS Past Anesthesia/Blood Transfusion Reactions: No Reported Reaction Additional Past Anesthesia/Blood Transfusion Reaction / Comment(s): no hx blood transfusion Date of Last Stent Placement:: 2022 Past Psychological History: No Psychological Hx Reported Smoking Status: Former smoker Past Alcohol Use History: None Reported Past Drug Use History: None Reported - Past Family History Father History Unknown: Yes Family Medical History: Myocardial Infarction ([place]) Additional Family Medical History / Comment(s): Several mi's- with major [place] Mother History Unknown: Yes Family Medical History: CVA/TIA Daughter(s) History Unknown: Yes Family Medical History: Diabetes Mellitus General Exam Limitations: no limitations General appearance: alert, in no apparent distress Head exam: Present: atraumatic, normocephalic, normal inspection Eye exam: Present: normal appearance, PERRL, EOMI. Absent: scleral icterus, conjunctival injection, periorbital swelling ENT exam: Present: normal exam, mucous membranes moist Neck exam: Present: normal inspection. Absent: tenderness, meningismus, lymphadenopathy Respiratory exam: Present: normal lung sounds bilaterally. Absent: respiratory distress, wheezes, rales, rhonchi, stridor Cardiovascular Exam: Present: regular rate, normal rhythm, normal heart sounds. Absent: systolic murmur, diastolic murmur, rubs, gallop, clicks GI/Abdominal exam: Present: soft, normal bowel sounds. Absent: distended, tenderness, guarding, rebound, rigid Extremities exam: Present: normal inspection, full ROM, normal capillary refill. Absent: tenderness, pedal edema, joint swelling, calf tenderness Back exam: Present: normal inspection Neurological exam: Present: alert, oriented X3, CN II-XII intact Psychiatric exam: Present: normal affect, normal mood Skin exam: Present: warm, dry, intact, normal color. Absent: rash Course Vital Signs 10/28/23 10/28/23 10/28/23 11:46 11:51 14:37 Temperature 97.2 F L Pulse Rate 56 L 60 Pulse Rate [ 60 Manager Six [employer] ] Respiratory 18 29 H Rate Blood Pressure 127/64 128/76 O2 Sat by Pulse 97 98 Oximetry Medical Decision Making - Medical Decision Making Was pt. sent in by a medical professional or institution (, PA, CONTINUOUS IMPROVEMENT FACILITATOR, urgent care, hospital, or custodial...) When possible be specific @ -No Did you speak to anyone other than the patient for history (EMS, parent, family, police, friend...)? What history was obtained from this source @ -Spoke with EMS and for history Did you review nursing and triage notes (agree or disagree)? Why? @ -I reviewed and agree with nursing and triage notes Were old charts reviewed (outside hosp., previous admission, EMS record, old EKG, old radiological studies, urgent care reports/EKG's, custodial records)? Report findings @ -I reviewed patient's cardiology consult from June 2023 Differential Diagnosis (chest pain, altered mental status, abdominal pain women, abdominal pain men, vaginal bleeding, weakness, fever, dyspnea, syncope, headache, dizziness, GI bleed, back pain, seizure, CVA, palpatations, mental health, musculoskeletal)? @ -Differential Palpitations Ventricular arrhythmias, atrial arrhythmias, myocardial infarction, anemia, thyrotoxicosis, electrolyte imbalance, hypokalemia, pulmonary embolism, pulmonary disease, drugs, alcohol, anxiety, stress.... This is not meant to be an all-inclusive list. EKG interpreted by me (3pts min.). @ -Yes and demonstrates SR with frequent PVCs. Rate of 57. MN interval 177. QRS 109. QTc of 408. No acute ST segment elevations or depressions X-rays interpreted by me (1pt min.). @ -Yes and no acute process CT interpreted by me (1pt min.). @ -None done U/S interpreted by me (1pt. min.). @ -None done What testing was considered but not performed or refused? (CT, X-rays, U/S, labs)? Why? @ -None What meds were considered but not given or refused? Why? @ -None Did you discuss the management of the patient with other professionals (leonardo carvalho i.eEmiliano Desai, PA, CONTINUOUS IMPROVEMENT FACILITATOR, lab, RT, psych nurse, social professionals, promotions team leader, teacher, agricultural technical officer, correctional casework specialist)? Give summary @ -No Was smoking cessation discussed for >3mins.? @ -No Was critical care preformed (if so, how long)? @ -No Were there social determinants of health that impacted care today? How? (Homelessness, low income, unemployed, alcoholism, drug addiction, transportation, low edu. Level, literacy, decrease access to med. care, custodial, rehab)? @ -No Was there de-escalation of care discussed even if they declined (Discuss DNR or withdrawal of care, Hospice)? DNR status @ -No What co-morbidities impacted this encounter? (DM, HTN, Smoking, COPD, CAD, Cancer, CVA, ARF, Chemo, Hep., AIDS, mental health diagnosis, sleep apnea, morbid obesity)? @ -Hypertension Was patient admitted / discharged? Hospital course, mention meds given and route, prescriptions, significant lab abnormalities, going to OR and other pertinent info. @ -Upon arrival patient was seen and evaluated in room 17. Thorough history and physical exam was performed. IV was established. Laboratory studies were conducted. Chest x-ray was performed. Patient remains asymptomatic throughout his stay. He remains on the lunchroom monitor without any ectopy. I did discuss the possibilities with the patient. I offered overnight observation however the patient wants to go home. He will be discharged. Instructed to follow-up with primary care doctor for reevaluation of his symptoms. Return for any new or worsening symptoms. Patient agreeable to plan was discharged in stable condition Undiagnosed new problem with uncertain prognosis? @ -Yes Drug Therapy requiring intensive monitoring for toxicity (Heparin, Nitro, Insulin, Cardizem)? @ -No Were any procedures done? @ -No Diagnosis/symptom? @ -Acute transient encephalopathy, acute palpitations Acute, or Chronic, or Acute on Chronic? @ -Acute Uncomplicated (without systemic symptoms) or Complicated (systemic symptoms)? @ -Complicated Side effects of treatment? @ -No Exacerbation, Progression, or Severe Exacerbation? @ -No Poses a threat to life or bodily function? How? (Chest pain, [place], [place], pneumonia, PE, COPD, DKA, ARF, appy, cholecystitis, CVA, Diverticulitis, Homicidal, Suicidal, threat to staff... and all critical care pts) @ -No - Lab Data Result diagrams: 10/28/23 12:44 10/28/23 12:44 Lab Results 10/28/23 10/28/23 10/28/23 Range/Units 12:44 12:44 12:44 WBC 8.2 (3.8-10.6) k/uL RBC 3.45 L (4.30-5.90) m/uL Hgb 11.0 L (13.0-17.5) gm/dL Hct 33.7 L (39.0-53.0) % MCV 97.7 (80.0-100.0) fL MCH 31.8 (25.0-35.0) pg MCHC 32.5 (31.0-37.0) g/dL RDW 13.7 (11.5-15.5) % Plt Count 238 (150-450) k/uL MPV 7.7 Neutrophils % 57 % Lymphocytes % 33 % Monocytes % 4 % Eosinophils % 4 % Basophils % 1 % Neutrophils # 4.7 (1.3-7.7) k/uL Lymphocytes # 2.7 (1.0-4.8) k/uL Monocytes # 0.3 (0-1.0) k/uL Eosinophils # 0.3 (0-0.7) k/uL Basophils # 0.1 (0-0.2) k/uL PT 11.3 (10.0-12.5) sec INR 1.0 (<1.2) APTT 23.7 (22.0-30.0) sec Sodium 137 (137-145) mmol/L Potassium 4.6 (3.5-5.1) mmol/L Chloride 114 H (98-107) mmol/L Carbon Dioxide 18 L (22-30) mmol/L Anion Gap 5 mmol/L BUN 29 H (9-20) mg/dL Creatinine 0.97 (0.66-1.25) mg/dL Est GFR (CKD-EPI)AfAm 82 (>60 ml/min/1.73 sqM) Est GFR (CKD-EPI)NonAf 71 (>60 ml/min/1.73 sqM) Glucose 110 H (74-99) mg/dL Calcium 8.8 (8.4-10.2) mg/dL Magnesium 2.0 (1.6-2.3) mg/dL Total Bilirubin 0.7 (0.2-1.3) mg/dL AST 21 (17-59) U/L ALT 19 (4-49) U/L Alkaline Phosphatase 100 (38-126) U/L Troponin I (0.000-0.034) ng/mL Total Protein 5.5 L (6.3-8.2) g/dL Albumin 3.0 L (3.5-5.0) g/dL Urine Color Urine Appearance (Clear) Urine pH (5.0-8.0) Ur Specific Rush (1.001-1.035) Urine Protein (Negative) Urine Glucose (UA) (Negative) Urine Ketones (Negative) Urine Blood (Negative) Urine Nitrite (Negative) Urine Bilirubin (Negative) Urine Urobilinogen (<2.0) mg/dL Ur Leukocyte Esterase (Negative) Urine RBC (0-5) /hpf Urine WBC (0-5) /hpf Ur Squamous Epith Cells (0-4) /hpf Hyaline Casts (0-2) /lpf Urine Mucus (None) /hpf 10/28/23 10/28/23 Range/Units 12:44 12:44 WBC (3.8-10.6) k/uL RBC (4.30-5.90) m/uL Hgb (13.0-17.5) gm/dL Hct (39.0-53.0) % MCV (80.0-100.0) fL MCH (25.0-35.0) pg MCHC (31.0-37.0) g/dL RDW (11.5-15.5) % Plt Count (150-450) k/uL MPV Neutrophils % % Lymphocytes % % Monocytes % % Eosinophils % % Basophils % % Neutrophils # (1.3-7.7) k/uL Lymphocytes # (1.0-4.8) k/uL Monocytes # (0-1.0) k/uL Eosinophils # (0-0.7) k/uL Basophils # (0-0.2) k/uL PT (10.0-12.5) sec INR (<1.2) APTT (22.0-30.0) sec Sodium (137-145) mmol/L Potassium (3.5-5.1) mmol/L Chloride (98-107) mmol/L Carbon Dioxide (22-30) mmol/L Anion Gap mmol/L BUN (9-20) mg/dL Creatinine (0.66-1.25) mg/dL Est GFR (CKD-EPI)AfAm (>60 ml/min/1.73 sqM) Est GFR (CKD-EPI)NonAf (>60 ml/min/1.73 sqM) Glucose (74-99) mg/dL Calcium (8.4-10.2) mg/dL Magnesium (1.6-2.3) mg/dL Total Bilirubin (0.2-1.3) mg/dL AST (17-59) U/L ALT (4-49) U/L Alkaline Phosphatase (38-126) U/L Troponin I 0.017 (0.000-0.034) ng/mL Total Protein (6.3-8.2) g/dL Albumin (3.5-5.0) g/dL Urine Color Colorless Urine Appearance Cloudy (Clear) Urine pH 6.0 (5.0-8.0) Ur Specific Rush 1.012 (1.001-1.035) Urine Protein Negative (Negative) Urine Glucose (UA) Negative (Negative) Urine Ketones Negative (Negative) Urine Blood Small H (Negative) Urine Nitrite Negative (Negative) Urine Bilirubin Negative (Negative) Urine Urobilinogen <2.0 (<2.0) mg/dL Ur Leukocyte Esterase Large H (Negative) Urine RBC 16 H (0-5) /hpf Urine WBC 126 H (0-5) /hpf Ur Squamous Epith Cells 2 (0-4) /hpf Hyaline Casts 1 (0-2) /lpf Urine Mucus Rare H (None) /hpf Disposition Clinical Impression: Acute encephalopathy, Respiratory insufficiency, Abnormal urinalysis Disposition: HOME SELF-CARE Condition: Stable Instructions (If sedation given, give patient instructions): Normal Exam (ED), Urinary Tract Infection in Older Adults (ED) Additional Instructions: Your laboratory studies demonstrate a little bit of infection in your urine. We will treat you for this. The remainder of your labs are within normal limits including your heart enzymes. Please follow-up with your primary care doctor for reevaluation return for any new or worsening symptoms Prescriptions: Cephalexin [Keflex] 500 mg PO Q6HR #20 cap Is patient prescribed a controlled substance at d/c from ED?: No Referrals: Nayeli Michel MD [Primary Care Provider] - 1-2 days Time of Disposition: 14:18
[2023-10-28] MEDS: CEPHALEXIN 500 MG CAP PO STA (14:21)
[2023-10-28] MEDS: cefTRIAXone IN SWFI 1,000 MG/10 ML SYRINGE IVP STA (14:27)
[2023-10-28 15:03] VITALS: BP 128/76; RESP 29
== END 2023-10-28 14:38 | disposition home or self-care (01) ==
LOC: EC 11:43
DX: G93.40 Encephalopathy, unspecified (principal); R06.89 Other abnormalities of breathing; R82.90 Unspecified abnormal findings in urine; R00.1 Bradycardia, unspecified; I10 Essential (primary) hypertension; Z87.891 Personal history of nicotine dependence; Z88.8 Allergy status to other drugs, medicaments and biological substances
CPT/HCPCS: 36415; 93005; 80053; 83735; 84484; 85025; 85610; 85730; 81001; 71046; 99285; 96374; J0696

== ENCOUNTER → 2024-04-10 | Outpatient (CLI) | payer MEDICARE ==
--- NOTE | 2024-04-10 07:47 | CT ---
EXAMINATION TYPE: CT brain wo con DATE OF EXAM: 04/10/2024 COMPARISON: None HISTORY: Memory loss. CT DLP: 1098.[address] of the brain was performed. The ventricles, basal cisterns and sulci overlying the cerebral convexities demonstrate mild to moder ate enlargement. There is no evidence for intracranial hemorrhage or sulcal effacement. There is decreased attenuation about the periventricular white matter and deep white matter of both c erebral hemispheres, compatible with chronic small vessel ischemia. Differential diagnosis does inclu de demyelination. No mass effects are seen.No midline shift. Osseous calvarium is intact. If symptoms persist consider MRI. IMPRESSION: 1. Age related atrophic and chronic small vessel ischemic change without acute intracranial process s een at this time. [facility], , 04/10/2024 7:45 AM
== END | disposition home or self-care (01) ==
LOC: RADCTMAIN 06:52
PROVIDERS: ATTEND Internal Medicine
DX: R41.3 Other amnesia
CPT/HCPCS: 70450

== ENCOUNTER 2024-07-08 13:11 | Emergency (ER) | payer MEDICARE ==
[2024-07-08 13:28] VITALS: TEMP 98.1
--- NOTE | 2024-07-08 13:55 | ED ---
General Adult HPI - General Chief complaint: Recheck/Abnormal Lab/Rx Stated complaint: L arm sore Time Seen by Provider: 07/08/24 13:30 Source: patient, RN notes reviewed Mode of arrival: ambulatory Limitations: no limitations - History of Present Illness Initial comments: 89-year-old male presents to the emergency department for evaluation of wound to his left arm. Patient states that he took a fall on [address] when he tripped in the bathroom. He states that he fell onto his left arm and has a skin tear. He states that he has been dressing the wound but it has started to have some oozing. Patient's family states that she has been using antibiotic spray on the wound. - Related Data Home Medications Medication Instructions Recorded Confirmed Isosorbide Mononitrate [Ismo] 20 mg PO BID 03/25/14 10/28/23 Atorvastatin Calcium [Lipitor] 80 mg PO DAILY 08/12/18 10/28/23 Finasteride [Proscar] 5 mg PO DAILY 08/12/18 10/28/23 Tamsulosin [Flomax] 0.4 mg PO DAILY 12/07/19 10/28/23 Aspirin EC [Ecotrin Low Dose] 81 mg PO DAILY 06/12/21 10/28/23 Cyanocobalamin [Vitamin B-12] 500 mcg PO DAILY 09/15/23 10/28/23 Potassium Chloride [Klor-Con M20] 20 meq PO DAILY 09/15/23 10/28/23 lisinopriL [Zestril] 20 mg PO DAILY 09/15/23 10/28/23 Albuterol Inhaler [Ventolin Hfa 2 puff INHALATION RT-QID PRN 10/17/23 10/28/23 Inhaler] Apixaban [Eliquis] 5 mg PO BID 10/17/23 10/28/23 Previous Rx's Medication Instructions Recorded Cholecalciferol [Vitamin D3 (25 50 mcg PO DAILY tab 06/15/23 Mcg = 1000 Iu)] Furosemide [Lasix] 20 mg PO DAILY #30 tab 06/21/23 Cephalexin [Keflex] 500 mg PO Q6HR #20 cap 10/28/23 Cephalexin [Keflex] 500 mg PO Q6HR #40 cap 07/08/24 Mupirocin 2% Oint [Bactroban 2% 1 applic TOPICAL TID #22 gm 07/08/24 Oint] Allergies Allergy/AdvReac Type Severity Reaction Status Date / Time adhesive tape AdvReac pulls skin Verified 07/08/24 13:28 off adhesive dressings AdvReac pulls skin Uncoded 07/08/24 13:28 off Review of Systems ROS Statement: Those systems with pertinent positive or pertinent negative responses have been documented in the HPI. ROS Other: All systems not noted in ROS Statement are negative. Past Medical History Past Medical History: Hyperlipidemia, Hypertension, Myocardial Infarction ([place]), Osteoarthritis (OA), Pneumonia, Prostate Disorder Additional Past Medical History / Comment(s): enlarged prostate-currently has march catheter, has some balance issue-uses walker when outside home, sinus problems Last Myocardial Infarction Date:: 1993 History of Any Multi-Drug Resistant Organisms: None Reported Past Surgical History: Back Surgery, Heart Catheterization, Heart Catheterization With Stent, Tonsillectomy Additional Past Surgical History / Comment(s): 2 Neck surgery, STATES HAS "PLASTIC" IN NECK, METAL IN BACK, STENT IN HEART X2, NORTH CATARACTS Past Anesthesia/Blood Transfusion Reactions: No Reported Reaction Additional Past Anesthesia/Blood Transfusion Reaction / Comment(s): no hx blood transfusion Date of Last Stent Placement:: 2022 Past Psychological History: No Psychological Hx Reported Smoking Status: Former smoker Past Alcohol Use History: None Reported Past Drug Use History: None Reported - Past Family History Father History Unknown: Yes Family Medical History: Myocardial Infarction ([place]) Additional Family Medical History / Comment(s): Several mi's- with major [place] Mother History Unknown: Yes Family Medical History: CVA/TIA Daughter(s) History Unknown: Yes Family Medical History: Diabetes Mellitus General Exam Limitations: no limitations General appearance: alert, in no apparent distress Head exam: Present: atraumatic, normocephalic, normal inspection Eye exam: Present: normal appearance, PERRL, EOMI. Absent: scleral icterus, conjunctival injection, periorbital swelling ENT exam: Present: normal exam, mucous membranes moist Neck exam: Present: normal inspection. Absent: tenderness, meningismus, lymphadenopathy Respiratory exam: Present: normal lung sounds bilaterally. Absent: respiratory distress, wheezes, rales, rhonchi, stridor Cardiovascular Exam: Present: regular rate, normal rhythm, normal heart sounds. Absent: systolic murmur, diastolic murmur, rubs, gallop, clicks Course Vital Signs 07/08/24 13:26 Temperature 98.1 F Pulse Rate 80 Respiratory 20 Rate Blood Pressure 104/55 O2 Sat by Pulse 98 Oximetry Medical Decision Making - Medical Decision Making Was pt. sent in by a medical professional or institution (DEBORAH Desai, CELL INSPECTOR, urgent care, hospital, or group home...) When possible be specific @ -[No] Did you speak to anyone other than the patient for history (EMS, parent, family, police, friend...)? What history was obtained from this source @ -[No] Did you review nursing and triage notes (agree or disagree)? Why? @ -[I reviewed and agree with nursing and triage notes] Were old charts reviewed (outside hosp., previous admission, EMS record, old EKG, old radiological studies, urgent care reports/EKG's, group home records)? Report findings @ -[No old charts were reviewed] Differential Diagnosis (chest pain, altered mental status, abdominal pain women, abdominal pain men, vaginal bleeding, weakness, fever, dyspnea, syncope, headache, dizziness, GI bleed, back pain, seizure, CVA, palpatations, mental health, musculoskeletal)? @ -[Skin tear, cellulitis, wound infection, this list is not all inclusive] EKG interpreted by me (3pts min.). @ -None X-rays interpreted by me (1pt min.). @ -[None done] CT interpreted by me (1pt min.). @ -[None done] U/S interpreted by me (1pt. min.). @ -[None done] What testing was considered but not performed or refused? (CT, X-rays, U/S, labs)? Why? @ -[None] What meds were considered but not given or refused? Why? @ -[None] Did you discuss the management of the patient with other professionals (professionals i.e. DEBORAH Desai, CELL INSPECTOR, lab, RT, psych nurse, long term care social worker, alumnae secretary, teacher, dog license officer supervisor, mental health case manager)? Give summary @ -[No] Was smoking cessation discussed for >3mins.? @ -[No] Was critical care preformed (if so, how long)? @ -[No] Were there social determinants of health that impacted care today? How? (Homelessness, low income, unemployed, alcoholism, drug addiction, transportation, low edu. Level, literacy, decrease access to med. care, penitentiary, rehab)? @ -[No] Was there de-escalation of care discussed even if they declined (Discuss DNR or withdrawal of care, Hospice)? DNR status @ -[No] What co-morbidities impacted this encounter? (DM, HTN, Smoking, COPD, CAD, Cancer, CVA, ARF, Chemo, Hep., AIDS, mental health diagnosis, sleep apnea, morbid obesity)? @ -[None] Was patient admitted / discharged? Hospital course, mention meds given and route, prescriptions, significant lab abnormalities, going to OR and other pertinent info. @ -[hospital course] Undiagnosed new problem with uncertain prognosis? @ -[No] Drug Therapy requiring intensive monitoring for toxicity (Heparin, Nitro, Insulin, Cardizem)? @ -[No] Were any procedures done? @ -[No] Diagnosis/symptom? @ -[default] Acute, or Chronic, or Acute on Chronic? @ -[default] Uncomplicated (without systemic symptoms) or Complicated (systemic symptoms)? @ -[default] Side effects of treatment? @ -[No] Exacerbation, Progression, or Severe Exacerbation? @ -[No] Poses a threat to life or bodily function? How? (Chest pain, [place], [place], pneumonia, PE, COPD, DKA, ARF, appy, cholecystitis, CVA, Diverticulitis, Homicidal, Suicidal, threat to staff... and all critical care pts) @ -[No] Disposition Clinical Impression: Infected skin tear Disposition: HOME SELF-CARE Condition: Stable Instructions (If sedation given, give patient instructions): Wound Infection (ED), Acute Wound Care (ED) Additional Instructions: Please keep wound clean and dry. Utilize the antibiotic ointment 3 times daily for around 4-5 days. consulting group analyst oral antibiotic and take to completion. Follow-up with your primary care provider. Return to the emergency department for new or worsening symptoms. Prescriptions: Mupirocin 2% Oint [Bactroban 2% Oint] 1 applic TOPICAL TID #22 gm Cephalexin [Keflex] 500 mg PO Q6HR #40 cap Is patient prescribed a controlled substance at d/c from ED?: No Referrals: Nayeli Michel MD [Primary Care Provider] - 1-2 days
[2024-07-08] MEDS: DIPH,PERTUS(ACELL)TETVAC-LF 0.5 ML VIAL IM ONE (14:30)
[2024-07-08 15:08] VITALS: BP 105/61; PULSE 77; RESP 18
== END 2024-07-08 15:07 | disposition home or self-care (01) ==
LOC: EC 13:11
DX: S41.112A Laceration without foreign body of left upper arm, initial encounter (principal); Z91.048 Other nonmedicinal substance allergy status; Z87.891 Personal history of nicotine dependence; Z95.5 Presence of coronary angioplasty implant and graft; Z23 Encounter for immunization; W01.0XXA Fall on same level from slipping, tripping and stumbling without subsequent striking against object, initial encounter; Y92.002 Bathroom of unspecified non-institutional (private) residence as the place of occurrence of the external cause
CPT/HCPCS: 87070; 87205; 90471; 90715; 99283

== ENCOUNTER 2024-08-20 09:58 | Observation (INO) | payer MEDICARE ==
--- NOTE | 2024-08-20 10:32 | ED ---
General Adult HPI - General Chief complaint: Fall Stated complaint: Weakness Time Seen by Provider: 08/20/24 10:06 Source: patient, EMS, RN notes reviewed Mode of arrival: EMS Limitations: no limitations - History of Present Illness Initial comments: This is an 89-year-old male with a history of of A-fib on eliquis, hypertension, and CAD, who presents to the emergency department via EMS for complaint of generalized weakness. Patient is a poor historian due to history of memory loss and dementia. Patient states that he has been having diarrhea over the past few days in addition to overall feeling weak and having a difficult time ambulating at home. States that when he had a recent fall yesterday he injured the right anterior part of his chest that is worse on palpation with deep inspiration. at bedside aids in history. states that over the past 2 weeks patient has been experiencing multiple ground-level mechanical fall with no acute etiology. denies syncope prior to the falls and denies patient hitting his head however there has been numerous occasions that has had to assist the patient up after he is fallen. Currently he is denying chest pain, difficulty breathing, fevers, chills, abdominal pain, dysuria, hematuria, peripheral edema. - Related Data Home Medications Medication Instructions Recorded Confirmed Isosorbide Mononitrate [Ismo] 20 mg PO BID 03/25/14 10/28/23 Atorvastatin Calcium [Lipitor] 80 mg PO DAILY 08/12/18 10/28/23 Finasteride [Proscar] 5 mg PO DAILY 08/12/18 10/28/23 Tamsulosin [Flomax] 0.4 mg PO DAILY 12/07/19 10/28/23 Aspirin EC [Ecotrin Low Dose] 81 mg PO DAILY 06/12/21 10/28/23 Cyanocobalamin [Vitamin B-12] 500 mcg PO DAILY 09/15/23 10/28/23 Potassium Chloride [Klor-Con M20] 20 meq PO DAILY 09/15/23 10/28/23 lisinopriL [Zestril] 20 mg PO DAILY 09/15/23 10/28/23 Albuterol Inhaler [Ventolin Hfa 2 puff INHALATION RT-QID PRN 10/17/23 10/28/23 Inhaler] Apixaban [Eliquis] 5 mg PO BID 10/17/23 10/28/23 Previous Rx's Medication Instructions Recorded Cholecalciferol [Vitamin D3 (25 50 mcg PO DAILY tab 06/15/23 Mcg = 1000 Iu)] Furosemide [Lasix] 20 mg PO DAILY #30 tab 06/21/23 Cephalexin [Keflex] 500 mg PO Q6HR #20 cap 10/28/23 Cephalexin [Keflex] 500 mg PO Q6HR #40 cap 07/08/24 Mupirocin 2% Oint [Bactroban 2% 1 applic TOPICAL TID #22 gm 07/08/24 Oint] Allergies Allergy/AdvReac Type Severity Reaction Status Date / Time adhesive tape AdvReac pulls skin Verified 08/20/24 10:05 off adhesive dressings AdvReac pulls skin Uncoded 08/20/24 10:05 off Review of Systems ROS Statement: Those systems with pertinent positive or pertinent negative responses have been documented in the HPI. ROS Other: All systems not noted in ROS Statement are negative. Past Medical History Past Medical History: Hyperlipidemia, Hypertension, Myocardial Infarction ([place]), Osteoarthritis ([place]), Pneumonia, Prostate Disorder Additional Past Medical History / Comment(s): enlarged prostate-currently has march catheter, has some balance issue-uses walker when outside home, sinus problems Last Myocardial Infarction Date:: 1993 History of Any Multi-Drug Resistant Organisms: None Reported Past Surgical History: Back Surgery, Heart Catheterization, Heart Catheterization With Stent, Tonsillectomy Additional Past Surgical History / Comment(s): 2 Neck surgery, STATES HAS "PLASTIC" IN NECK, METAL IN BACK, STENT IN HEART X2, NORTH CATARACTS Past Anesthesia/Blood Transfusion Reactions: No Reported Reaction Additional Past Anesthesia/Blood Transfusion Reaction / Comment(s): no hx blood transfusion Date of Last Stent Placement:: 2022 Past Psychological History: No Psychological Hx Reported Smoking Status: Former smoker Past Alcohol Use History: None Reported Past Drug Use History: None Reported - Past Family History Father History Unknown: Yes Family Medical History: Myocardial Infarction ([place]) Additional Family Medical History / Comment(s): Several mi's- with major [place] Mother History Unknown: Yes Family Medical History: CVA/TIA Daughter(s) History Unknown: Yes Family Medical History: Diabetes Mellitus General Exam Limitations: no limitations, altered mental status (dementia) General appearance: alert, in no apparent distress Eye exam: Present: normal appearance, PERRL, EOMI. Absent: scleral icterus, conjunctival injection, periorbital swelling ENT exam: Present: normal exam, mucous membranes moist Neck exam: Present: normal inspection. Absent: tenderness, meningismus, lymphadenopathy Respiratory exam: Present: normal lung sounds bilaterally. Absent: respiratory distress, wheezes, rales, rhonchi, stridor Cardiovascular Exam: Present: regular rate, normal rhythm, normal heart sounds. Absent: systolic murmur, diastolic murmur, rubs, gallop, clicks GI/Abdominal exam: Present: soft, normal bowel sounds. Absent: distended, tenderness, guarding, rebound, rigid Extremities exam: Present: normal inspection, full ROM, normal capillary refill. Absent: tenderness, pedal edema, joint swelling, calf tenderness Back exam: Present: normal inspection Course Vital Signs 08/20/24 08/20/24 09:59 13:35 Temperature 97.7 F Pulse Rate 56 L 60 Respiratory 17 18 Rate Blood Pressure 100/41 127/58 O2 Sat by Pulse 93 L 94 L Oximetry Medical Decision Making - Medical Decision Making Was pt. sent in by a medical professional or institution (, PA, MIXING PICKER TENDER, urgent care, hospital, or [facility]...) When possible be specific @ -No Did you speak to anyone other than the patient for history (EMS, parent, family, police, friend...)? What history was obtained from this source @ -No Did you review nursing and triage notes (agree or disagree)? Why? @ -I reviewed and agree with nursing and triage notes Were old charts reviewed (outside hosp., previous admission, EMS record, old EKG, old radiological studies, urgent care reports/EKG's, [facility] records)? Report findings @ -No old charts were reviewed Differential Diagnosis (chest pain, altered mental status, abdominal pain women, abdominal pain men, vaginal bleeding, weakness, fever, dyspnea, syncope, headache, dizziness, GI bleed, back pain, seizure, CVA, palpatations, mental health, musculoskeletal)? @ -Differential Weakness: Hypoglycemia, shock, sepsis, hyponatremia, anemia, infection, [place], ETOH, adverse medicine reaction, overdose, stroke, this is not meant to be an all-inclusive list. EKG interpreted by me (3pts min.). @ -Completed at 1051 sinus rhythm with a first-degree AV block, ventricular rate 65, WA interval 224, QRS 102, QTc 446. X-rays interpreted by me (1pt min.). @ -Chest x-ray completed with a small left pleural effusion and left basilar infiltrate and/or atelectasis CT interpreted by me (1pt min.). @ -None done U/S interpreted by me (1pt. min.). @ -None done What testing was considered but not performed or refused? (CT, X-rays, U/S, labs)? Why? @ -None What meds were considered but not given or refused? Why? @ -None Did you discuss the management of the patient with other professionals (professionals i.e. , PA, MIXING PICKER TENDER, lab, RT, psych nurse, psychiatric social worker, manager council, teacher, forest fire control officer, disability case manager)? Give summary @ -Spoke with patient's PCP, Dr. Michel, in regard to concern for generalized weakness and frequent falls. Patient will be admitted for observation with physical therapy consult. Was smoking cessation discussed for >3mins.? @ -No Was critical care preformed (if so, how long)? @ -No Were there social determinants of health that impacted care today? How? (Homelessness, low income, unemployed, alcoholism, drug addiction, transportation, low edu. Level, literacy, decrease access to med. care, fpc, rehab)? @ -No Was there de-escalation of care discussed even if they declined (Discuss DNR or withdrawal of care, Hospice)? DNR status @ -No What co-morbidities impacted this encounter? (DM, HTN, Smoking, COPD, CAD, Cancer, CVA, ARF, Chemo, Hep., AIDS, mental health diagnosis, sleep apnea, morbid obesity)? @ -None Was patient admitted / discharged? Hospital course, mention meds given and route, prescriptions, significant lab abnormalities, going to OR and other per tinent info. @ -Admitted. 89-year-old male presenting EMS for generalized weakness. Phys ical examination markable for mild tenderness to the right lower chest with no crepitus or palpable deformity. Vitals are stable. Chest x-ray reveals small left pleural effusion. Labs remarkable for anemia which appears chronic with a hemoglobin 11.7 and hematocrit of 34.8. CMP unremarkable. Urinalysis no signs infection. With concern for worsening generalized weakness over the past month and frequent falls patient will be mated to internal medicine with physical therapy on consult for further evaluation. Patient will be maintained on IV fluids. Case discussed with Dr. Johnson Undiagnosed new problem with uncertain prognosis? @ -No Drug Therapy requiring intensive monitoring for toxicity (Heparin, Nitro, Insulin, Cardizem)? @ -No Were any procedures done? @ -No Diagnosis/symptom? @ -generalized weakness, frequent falls Acute, or Chronic, or Acute on Chronic? @ -Acute Uncomplicated (without systemic symptoms) or Complicated (systemic symptoms)? @ -Complicated Side effects of treatment? @ -No Exacerbation, Progression, or Severe Exacerbation? @ -No Poses a threat to life or bodily function? How? (Chest pain, [place], [place], pneumonia, PE, COPD, DKA, ARF, appy, cholecystitis, CVA, Diverticulitis, Homicidal, Suicidal, threat to staff... and all critical care pts) @ -No - Lab Data Result diagrams: 08/20/24 10:30 08/20/24 10:30 Lab Results 08/20/24 08/20/24 08/20/24 Range/Units 10:30 10:30 10:30 WBC 8.3 (3.8-10.6) k/uL RBC 3.52 L (4.30-5.90) m/uL Hgb 11.7 L (13.0-17.5) gm/dL Hct 34.8 L (39.0-53.0) % MCV 99.1 (80.0-100.0) fL MCH 33.2 (25.0-35.0) pg MCHC 33.5 (31.0-37.0) g/dL RDW 13.1 (11.5-15.5) % Plt Count 213 (150-450) k/uL MPV 7.0 Neutrophils % 57 % Lymphocytes % 32 % Monocytes % 4 % Eosinophils % 5 % Basophils % 0 % Neutrophils # 4.8 (1.3-7.7) k/uL Lymphocytes # 2.6 (1.0-4.8) k/uL Monocytes # 0.4 (0-1.0) k/uL Eosinophils # 0.4 (0-0.7) k/uL Basophils # 0.0 (0-0.2) k/uL PT 11.1 (10.0-12.5) sec INR 1.0 (<1.2) APTT 22.1 (22.0-30.0) sec Sodium 136 L (137-145) mmol/L Potassium 3.7 (3.5-5.1) mmol/L Chloride 108 H (98-107) mmol/L Carbon Dioxide 19 L (22-30) mmol/L Anion Gap 9 mmol/L BUN 23 H (9-20) mg/dL Creatinine 1.03 (0.66-1.25) mg/dL Est GFR (CKD-EPI)AfAm 76 (>60 ml/min/1.73 sqM) Est GFR (CKD-EPI)NonAf 65 (>60 ml/min/1.73 sqM) Glucose 117 H (74-99) mg/dL Calcium 7.6 L (8.4-10.2) mg/dL Magnesium 1.8 (1.6-2.3) mg/dL Total Bilirubin 1.0 (0.2-1.3) mg/dL AST 16 L (17-59) U/L ALT 13 (4-49) U/L Alkaline Phosphatase 62 (38-126) U/L Troponin I (0.000-0.034) ng/mL Total Protein 4.9 L (6.3-8.2) g/dL Albumin 2.7 L (3.5-5.0) g/dL Lipase 24 (23-300) U/L Urine Color Urine Appearance (Clear) Urine pH (5.0-8.0) Ur Specific [place] (1.001-1.035) Urine Protein (Negative) Urine Glucose (UA) (Negative) Urine Ketones (Negative) Urine Blood (Negative) Urine Nitrite (Negative) Urine Bilirubin (Negative) Urine Urobilinogen (<2.0) mg/dL Ur Leukocyte Esterase (Negative) 08/20/24 08/20/24 Range/Units 10:30 13:13 WBC (3.8-10.6) k/uL RBC (4.30-5.90) m/uL Hgb (13.0-17.5) gm/dL Hct (39.0-53.0) % MCV (80.0-100.0) fL MCH (25.0-35.0) pg MCHC (31.0-37.0) g/dL RDW (11.5-15.5) % Plt Count (150-450) k/uL MPV Neutrophils % % Lymphocytes % % Monocytes % % Eosinophils % % Basophils % % Neutrophils # (1.3-7.7) k/uL Lymphocytes # (1.0-4.8) k/uL Monocytes # (0-1.0) k/uL Eosinophils # (0-0.7) k/uL Basophils # (0-0.2) k/uL PT (10.0-12.5) sec INR (<1.2) APTT (22.0-30.0) sec Sodium (137-145) mmol/L Potassium (3.5-5.1) mmol/L Chloride (98-107) mmol/L Carbon Dioxide (22-30) mmol/L Anion Gap mmol/L BUN (9-20) mg/dL Creatinine (0.66-1.25) mg/dL Est GFR (CKD-EPI)AfAm (>60 ml/min/1.73 sqM) Est GFR (CKD-EPI)NonAf (>60 ml/min/1.73 sqM) Glucose (74-99) mg/dL Calcium (8.4-10.2) mg/dL Magnesium (1.6-2.3) mg/dL Total Bilirubin (0.2-1.3) mg/dL AST (17-59) U/L ALT (4-49) U/L Alkaline Phosphatase (38-126) U/L Troponin I 0.023 (0.000-0.034) ng/mL Total Protein (6.3-8.2) g/dL Albumin (3.5-5.0) g/dL Lipase (23-300) U/L Urine Color Colorless Urine Appearance Clear (Clear) Urine pH 5.5 (5.0-8.0) Ur Specific [place] 1.012 (1.001-1.035) Urine Protein Negative (Negative) Urine Glucose (UA) Negative (Negative) Urine Ketones Negative (Negative) Urine Blood Negative (Negative) Urine Nitrite Negative (Negative) Urine Bilirubin Negative (Negative) Urine Urobilinogen <2.0 (<2.0) mg/dL Ur Leukocyte Esterase Negative (Negative) Disposition Clinical Impression: Generalized weakness Disposition: ADMITTED IP TO THIS [facility] Condition: Stable Referrals: Nayeli Michel MD [Primary Care Provider] - 1-2 days Decision to Admit Reason: Admit from EC Decision Date: 08/20/24 Decision Time: 14:32
[2024-08-20] MEDS: SODIUM CHLORIDE 0.9% 500 ML 500 ML IV STA (10:34)
[2024-08-20 10:44] LABS: Basophils % (A) 0 %; Eosinophils # (A) 0.4 k/uL (0-0.7); Eosinophils % (A) 5 %; HCT 34.8 % (39.0-53.0); HGB 11.7 gm/dL (13.0-17.5); Lymphocytes # (A) 2.6 k/uL (1.0-4.8); Lymphocytes % (A) 32 %; MCH 33.2 pg (25.0-35.0); MCHC 33.5 g/dL (31.0-37.0); MCV 99.1 fL (80.0-100.0); Monocytes # (A) 0.4 k/uL (0-1.0); Monocytes % (A) 4 %; Neutrophils # (A) 4.8 k/uL (1.3-7.7); Neutrophils % (A) 57 %; Platelet Count 213 k/uL (150-450); RBC 3.52 m/uL (4.30-5.90); RDW 13.1 % (11.5-15.5); WBC 8.3 k/uL (3.8-10.6)
--- NOTE | 2024-08-20 10:52 | XR ---
EXAMINATION TYPE: XR chest 2V DATE OF EXAM: 08/20/2024 10:45 AM COMPARISON: Chest x-ray October 28, 2023 CLINICAL INDICATION: Male, 89 years old with history of Weakness, TECHNIQUE: Frontal and lateral views of the chest are obtained. FINDINGS: There is new small left pleural effusion and left basilar opacity. Right lung remains jeny ar. The cardiac silhouette size remains within normal limits. Overlying loop recorder is redemonstr ated. Postsurgical changes thoracolumbar spine is partially imaged. Postsurgical changes cervical spi ne is also partially imaged. IMPRESSION: New small left pleural effusion and left basilar acute infiltrate and/or atelectasis. [facility], , 08/20/2024 10:50 AM
[2024-08-20 11:00] LABS: Carbon Dioxide 19 mmol/L (22-30); Chloride 108 mmol/L (98-107); Glucose 117 mg/dL (74-99); Potassium 3.7 mmol/L (3.5-5.1); Sodium 136 mmol/L (137-145)
[2024-08-20 11:01] LABS: ALT 13 U/L (4-49); AST 16 U/L (17-59); African American GFR (CKD) 76 (>60 ml/min/1.73 sqM); Albumin 2.7 g/dL (3.5-5.0); Alkaline Phosphatase 62 U/L (38-126); Anion Gap 9 mmol/L; Blood Urea Nitrogen 23 mg/dL (9-20); Calcium 7.6 mg/dL (8.4-10.2); Lipase 24 U/L (23-300); Magnesium 1.8 mg/dL (1.6-2.3); Non-African American GFR(CKD) 65 (>60 ml/min/1.73 sqM); Total Protein 4.9 g/dL (6.3-8.2)
[2024-08-20 11:13] LABS: Partial Thromboplastin Time 22.1 sec (22.0-30.0); Prothrombin Time 11.1 sec (10.0-12.5)
[2024-08-20 13:22] LABS: Appearance,Urine Clear (Clear); Bilirubin,Urine Negative (Negative); Blood,Urine Negative (Negative); Color,Urine Colorless; Glucose,Urine (UA) Negative (Negative); Ketones,Urine Negative (Negative); Leukocyte Esterase,Urine Negative (Negative); Nitrite,Urine Negative (Negative); PH, Urine 5.5 (5.0-8.0); Protein,Urine Negative (Negative); Specific Gravity,Urine 1.012 (1.001-1.035); Urobilinogen,Urine <2.0 mg/dL (<2.0)
[2024-08-20] MEDS ORDERED: ACETAMINOPHEN TAB 325 MG TAB PO PRN (14:32)
[2024-08-20] MEDS ORDERED: IBUPROFEN 400 MG TAB PO PRN (14:32)
[2024-08-20] MEDS ORDERED: NALOXONE 0.4 MG/ML 1 ML VIAL IV PRN (14:32)
[2024-08-20] MEDS: SODIUM CHLORIDE 0.9% 1,000 ML IV SCH (16:06)
[2024-08-20 17:30] LABS: Influenza A Not Detected (Not Detectd); Influenza B Not Detected (Not Detectd); RSV Not Detected (Not Detectd)
[2024-08-20] MEDS: ASPIRIN 81 MG PO SCH (21:12)
[2024-08-20] MEDS: ISOSORBIDE MONONITRATE 20 MG TAB PO SCH (21:13)
--- NOTE | 2024-08-21 07:40 | P.HPIM ---
History of Present Illness H&P Date: 08/20/24 Chief Complaint: Weakness/Falls HISTORY OF PRESENT ILLNESS: This is an 89-year-old male patient of eduardo and Dr. Myers with a past medical history coronary artery disease status post PCI of the LAD and RCA, history of hypertension, hyperlipidemia BPH, neck and back surgeries for degenerative arthritis, patient was hospitalized at [facility] in 05/31/2023 and he was found to have a significant stenosis of the proximal LAD after heart cath physician that was done by Dr. Quintana, he underwent left heart catheterization with PCI of the proximal LAD using a size stents, and he did have a balloon angioplasty for dilatation as well, patient has done well over the last few months, patient presented to the emergency department at [facility] last night because of generalized fatigue and weakness and not able to do anything, unfortunately his who is the primary caregiver for him is not able to help him at home because of the risk of falling and possible hurting himself due to the fact that he is taking Eliquis 5 mg orally twice every day, patient was admitted to the hospital for evaluation by physical therapy and possible health social work professor consultation for discharge planning hopefully subacute rehabilitation of some physical therapy and rehabilitation REVIEW OF SYSTEMS: Constitutional: No documented fever, no chills, no night sweats. No weight change. positive for weakness, fatigue or lethargy. No daytime sleepiness. HEENT: No headache. No blurred vision or double vision, no loss of vision. No loss of Hearing, no ringing in the ears, no dizziness. No nasal drainage or congestion. No epistaxis. No sore throat. Lungs: Positive for shortness of breath, no cough, no sputum production. No wheezing. Reports dyspnea with activity. Cardiovascular: No chest pain, no lower extremity edema. No palpitations. No paroxysmal nocturnal dyspnea. No orthopnea. No lightheadedness or dizziness. No syncopal episodes. Abdominal: Reports no abdominal pain. positive for nausea, vomiting. No diarrhea. No constipation. No bloody or tarry stools reports loss of appetite. Genitourinary: positive for urinary frequency. Musculoskeletal: No myalgias. Positive for muscle weakness,positive for gait dysfunction, positive for frequent falls, positive for back pain, and neck pain. Positive for loss of balance. Integumentary: No wounds, no lesions. No rash or pruritus. No unusual bruising. No change in hair or nails. Neurologic: No aphasia. No facial droop. No change in mentation. No head injury. No headache. No paralysis. No paresthesia. Psychiatric: positive for depression. No anxiety. positive for mood swings. Endocrine: No abnormal blood sugars. No weight change. PAST MEDICAL HISTORY: CAD post-PCI of the LAD and RCA. Minimal LV dysfunction. Hypertension and hypertensive cardiovascular disease. Hyperlipidemia. Essential tremor. BPH . 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 Recurrent falls. Atrial fibrillation. urinary retention COVID-19 PAST SURGICAL HISTORY: Posterior cervical discectomy with fusion. Lumbar discectomy with fusion . Bilateral cataract surgery Left heart catheterization with PCI of the LAD and RCA. SOCIAL HISTORY: Patient used to smoke about pack every day he started smoking when he was 18-year-old and quit in 1989 patient used to be heavy drinker he quit drinking in 1986 he lives with his , he uses a cane for immolation, he denies any drug use or abuse. FAMILY HISTORY: Father at age of 78 from multiple injuries due to pedestrian motor vehicle accident injury but he had several MIs, mother at age of 80 from CVA/TIA, patient has 2 daughters one with obesity hypertension hyperlipidemia and diabete s mellitus type 2, the other one with MS. PHYSICAL EXAMINATION: General: 89-year-old male lying down in bed in no apparent distress. HEENT: Head is atraumatic, normocephalic, pupils were equal round reactive to light and recommendation, extraocular muscle movement were intact, sclera non icteric, conjunctivae were pale, mucous membranes of the mouth are somewhat dry. Neck: Supple, no JVP, normal carotid upstroke bilaterally, no lymphadenopathy. Chest: Decreased breath sounds at the bases, few rhonchi, no extremity wheezes, no chest wall tenderness, no intercostal retractions. Heart: First heart sound is normal, second heart sounds normal there is systolic ejection murmur 2/6 located in the left sternal border. Abdomen: Soft, nontender, nondistended, positive bowel sounds. Extremities: There is no edema no calf tenderness DP +2 bilaterally. Neurologic examination: Patient is awake alert and oriented X 3, cranial nerves II-12 appear grossly intact, muscle power were 4 out of 5 in upper extremities and 3 out of 5 in bilateral lower extremities, deep tendon reflexes normal north aterally. ASSESSMENT AND PLAN: 1. loss of balance and recurrent falls with inability of carrying out activities of daily living. Patient was admitted to the hospital for safety issues, physical therapy evaluation tomorrow morning, health social work professor consultation for discharge planning likely subacute rehabilitation 2. Paroxysmal atrial fibrillation. Continue patient on Eliquis 5 mg orally twice every day he has been off beta-shayy due to bradycardia and syncopal episode. 3. History of CAD post-PCI of the LAD and RCA. Last heart catheterization November 2019 showed stable disease. Continue aspirin 81 mg once every day, Lipitor 80 mg once every day, lisinopril 10 mg every day, isosorbide 20 mg orally twice every day. 4. Hypertension and hypertensive cardiovascular disease. Continue lisinopril 10 mg orally once every day. 5. Hyperlipidemia. Continue Lipitor 80 mg once every day, keep LDL cholesterol 55-70. 6. Enlarged prostate continue Flomax 0.4 mg once every day. 7. 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 Continue with physical therapy as needed. 8. Chronic diastolic heart failure. Continue patient on lisinopril 10 mg orally once every day, continue with Lasix 20 mg orally once every day along with potassium supplements 9. DVT prophylaxis. we will continue with Eliquis 5 mg po bid 10. GI prophylaxis. Continue Protonix 40 mg orally once every day. 11. Observation 12. Patient is full code. Past Medical History Past Medical History: Hyperlipidemia, Hypertension, Myocardial Infarction ([place]), Osteoarthritis (OA), Pneumonia, Prostate Disorder Additional Past Medical History / Comment(s): enlarged prostate-currently has march catheter, has some balance issue-uses walker when outside home, sinus problems Last Myocardial Infarction Date:: 1993 History of Any Multi-Drug Resistant Organisms: None Reported Past Surgical History: Back Surgery, Heart Catheterization, Heart Catheterization With Stent, Tonsillectomy Additional Past Surgical History / Comment(s): 2 Neck surgery, STATES HAS "PLASTIC" IN NECK, METAL IN BACK, STENT IN HEART X2, NORTH CATARACTS Past Anesthesia/Blood Transfusion Reactions: No Reported Reaction Additional Past Anesthesia/Blood Transfusion Reaction / Comment(s): no hx blood transfusion Date of Last Stent Placement:: 2022 Past Psychological History: No Psychological Hx Reported Smoking Status: Former smoker Past Alcohol Use History: None Reported Past Drug Use History: None Reported - Past Family History Father History Unknown: Yes Family Medical History: Myocardial Infarction ([place]) Additional Family Medical History / Comment(s): Several mi's- with major [place] Mother History Unknown: Yes Family Medical History: CVA/TIA Daughter(s) History Unknown: Yes Family Medical History: Diabetes Mellitus Medications and Allergies Home Medications Medication Instructions Recorded Confirmed Type Isosorbide Mononitrate [Ismo] 20 mg PO BID 03/25/14 08/20/24 History Atorvastatin Calcium [Lipitor] 80 mg PO DAILY 08/12/18 08/20/24 History Tamsulosin [Flomax] 0.4 mg PO DAILY 12/07/19 08/20/24 History Aspirin EC [Ecotrin Low Dose] 81 mg PO HS 06/12/21 08/20/24 History Potassium Chloride [Klor-Con M20] 20 meq PO DAILY 09/15/23 08/20/24 History Apixaban [Eliquis] 5 mg PO DAILY 10/17/23 08/20/24 History Escitalopram [Lexapro] 20 mg PO DAILY 08/20/24 08/20/24 History Furosemide [Lasix] 20 mg PO DAILY 08/20/24 08/20/24 History Primidone [Mysoline] 50 mg PO DAILY 08/20/24 08/20/24 History lisinopriL [Zestril] 20 mg PO DAILY 08/20/24 08/20/24 History Allergies Allergy/AdvReac Type Severity Reaction Status Date / Time adhesive tape AdvReac pulls skin Verified 08/20/24 15:12 off adhesive dressings AdvReac pulls skin Uncoded 08/20/24 10:05 off Physical Exam Vitals: Vital Signs Temp Pulse Resp BP Pulse Ox 08/20/24 13:35 60 18 127/58 94 L 08/20/24 09:59 97.7 F 56 L 17 100/41 93 L Intake and Output 08/20/24 08/20/24 08/20/24 06:59 14:59 22:59 Other: Weight 68.039 kg Results CBC & Chem 7: 08/20/24 10:30 08/20/24 10:30 Labs: Abnormal Lab Results - Last 24 Hours (Table) 08/20/24 08/20/24 Range/Units 10:30 10:30 RBC 3.52 L (4.30-5.90) m/uL Hgb 11.7 L (13.0-17.5) gm/dL Hct 34.8 L (39.0-53.0) % Sodium 136 L (137-145) mmol/L Chloride 108 H (98-107) mmol/L Carbon Dioxide 19 L (22-30) mmol/L BUN 23 H (9-20) mg/dL Glucose 117 H (74-99) mg/dL Calcium 7.6 L (8.4-10.2) mg/dL AST 16 L (17-59) U/L Total Protein 4.9 L (6.3-8.2) g/dL Albumin 2.7 L (3.5-5.0) g/dL
[2024-08-21] MEDS: FUROSEMIDE 20 MG TAB PO SCH (08:13)
[2024-08-21] MEDS: lisinopriL 20 MG TAB PO SCH (08:13)
[2024-08-21] MEDS: PRIMIDONE 50 MG TAB PO SCH (08:13)
[2024-08-21] MEDS: TAMSULOSIN 0.4 MG CAP.ER.24H PO SCH (08:14)
[2024-08-21] MEDS: ESCITALOPRAM 20 MG TAB PO SCH (08:14)
[2024-08-21] MEDS: ATORVASTATIN 80 MG TAB PO SCH (08:14)
[2024-08-21] MEDS: POTASSIUM CHLORIDE ER 20 MEQ TAB.ER PO SCH (08:14)
[2024-08-21] MEDS: APIXABAN 5 MG TAB PO SCH (08:14)
[2024-08-21 09:05] LABS: ALT 16 U/L (10-49); AST 33 U/L (14-35); Albumin 3.3 g/dL (3.8-4.9); Albumin/Globulin Ratio 1.65 Ratio (1.60-3.17); Alkaline Phosphatase 75 U/L (41-126); BUN/Creat Ratio 18.73 Ratio (12.00-20.00); Blood Urea Nitrogen 20.6 mg/dL (9.0-27.0); Calcium 8.2 mg/dL (8.7-10.3); Carbon Dioxide 20.1 mmol/L (21.6-31.8); Chloride 105 mmol/L (96-109); Glucose 98 mg/dL (70-110); Potassium 4.2 mmol/L (3.5-5.5); Sodium 137 mmol/L (135-145); Total Bilirubin 0.6 mg/dL (0.3-1.2); Total Protein 5.3 g/dL (6.2-8.2)
[2024-08-21 09:11] LABS: Basophils # (A) 0.04 X 10*3/uL (0.00-0.10); Basophils % (A) 0.4 %; Eosinophils # (A) 0.35 X 10*3/uL (0.04-0.35); Eosinophils % (A) 3.5 %; HCT 34.9 % (39.6-50.0); HGB 11.5 g/dL (13.0-17.0); Lymphocytes # (A) 3.16 X 10*3/uL (0.90-5.00); Lymphocytes % (A) 31.9 %; MCH 32.8 pg (27.0-32.0); MCV 99.4 FL (80.0-97.0); Mean Platelet Volume 9.7 FL (9.5-12.2); Monocytes # (A) 0.68 X 10*3/uL (0.20-1.00); Monocytes % (A) 6.9 %; NRBC Per 100 WBC 0 X 10*3/uL (0.00-0.01); Neutrophils # (A) 5.65 X 10*3/uL (1.80-7.70); Neutrophils % (A) 57.1 %; Platelet Count 233 X 10*3/uL (140-440); RBC 3.51 X 10*6/uL (4.40-5.60); RDW 13.2 % (11.5-14.5)
--- NOTE | 2024-08-21 19:00 | P.PN ---
Subjective Progress Note Date: 08/21/24 HISTORY OF PRESENT ILLNESS: This is an 89-year-old male patient of eduardo and Dr. Myers with a past medical history coronary artery disease status post PCI of the LAD and RCA, history of hypertension, hyperlipidemia BPH, neck and back surgeries for degenerative arthritis, patient was hospitalized at [facility] in 05/31/2023 and he was found to have a significant stenosis of the proximal LAD after heart cath physician that was done by Dr. Quintana, he underwent left heart catheterization with PCI of the proximal LAD using a size stents, and he did have a balloon angioplasty for dilatation as well, patient has done well over the last few months, patient presented to the emergency department at [facility] last night because of generalized fatigue and weakness and not able to do anything, unfortunately his who is the primary caregiver for him is not able to help him at home because of the risk of falling and possible hurting himself due to the fact that he is taking Eliquis 5 mg orally twice every day, patient was admitted to the hospital for evaluation by physical therapy and possible social work associate consultation for discharge planning hopefully subacute re habilitation of some physical therapy and rehabilitation 08/21: Patient is laying down in bed in no apparent distress, patient was seen by physical therapy today, he got out of the bed using a walker, and he is ambulating to the bathroom and to the hallway and came back, await social work associate consultation for possible subacute rehabilitation., patient continues to have issues with balance he continues to have an increased risk of falling and harming harming himself I believe the patient would benefit from subacute rehabilitation for strengthening exercises, otherwise we can have to make decision whether or not the patient need to be staying on blood thinner. REVIEW OF SYSTEMS: Constitutional: No documented fever, no chills, no night sweats. No weight change. positive for weakness, fatigue or lethargy. No daytime sleepiness. HEENT: No headache. No blurred vision or double vision, no loss of vision. No loss of Hearing, no ringing in the ears, no dizziness. No nasal drainage or congestion. No epistaxis. No sore throat. Lungs: Positive for shortness of breath, no cough, no sputum production. No wheezing. Reports dyspnea with activity. Cardiovascular: No chest pain, no lower extremity edema. No palpitations. No paroxysmal nocturnal dyspnea. No orthopnea. No lightheadedness or dizziness. No syncopal episodes. Abdominal: Reports no abdominal pain. positive for nausea, vomiting. No diarrhea. No constipation. No bloody or tarry stools reports loss of appetite. Genitourinary: positive for urinary frequency. Musculoskeletal: No myalgias. Positive for muscle weakness,positive for gait dysfunction, positive for frequent falls, positive for back pain, and neck pain. Positive for loss of balance. Integumentary: No wounds, no lesions. No rash or pruritus. No unusual bruising. No change in hair or nails. Neurologic: No aphasia. No facial droop. No change in mentation. No head injury. No headache. No paralysis. No paresthesia. Psychiatric: positive for depression. No anxiety. positive for mood swings. Endocrine: No abnormal blood sugars. No weight change. PHYSICAL EXAMINATION: General: 89-year-old male lying down in bed in no apparent distress. HEENT: Head is atraumatic, normocephalic, pupils were equal round reactive to light and recommendation, extraocular muscle movement were intact, sclera nonicteric, conjunctivae were pale, mucous membranes of the mouth are somewhat dry. Neck: Supple, no JVP, normal carotid upstroke bilaterally, no lymphadenopathy. Chest: Decreased breath sounds at the bases, few rhonchi, no extremity wheezes, no chest wall tenderness, no intercostal retractions. Heart: First heart sound is normal, second heart sounds normal there is systolic ejection murmur 2/6 located in the left sternal border. Abdomen: Soft, nontender, nondistended, positive bowel sounds. Extremities: There is no edema no calf tenderness DP +2 bilaterally. Neurologic examination: Patient is awake alert and oriented X 3, cranial nerves II-12 appear grossly intact, muscle power were 4 out of 5 in upper extremities and 3 out of 5 in bilateral lower extremities, deep tendon reflexes normal bilaterally. ASSESSMENT AND PLAN: 1. loss of balance and recurrent falls with inability of carrying out activities of daily living. Patient was admitted to the hospital for safety issues, physical therapy evaluation tomorrow morning, social work associate consultation for discharge planning likely subacute rehabilitation 2. Paroxysmal atrial fibrillation. Continue patient on Eliquis 5 mg orally twice every day he has been off beta-shayy due to bradycardia and syncopal episode. 3. History of CAD post-PCI of the LAD and RCA. Last heart catheterization November 2019 showed stable disease. Continue aspirin 81 mg once every day, Lipitor 80 mg once every day, lisinopril 10 mg every day, isosorbide 20 mg orally twice every day. 4. Hypertension and hypertensive cardiovascular disease. Continue lisinopril 10 mg orally once every day. 5. Hyperlipidemia. Continue Lipitor 80 mg once every day, keep LDL cholesterol 55-70. 6. Enlarged prostate continue Flomax 0.4 mg once every day. 7. 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 Continue with physical therapy as needed. 8. Chronic diastolic heart failure. Continue patient on lisinopril 10 mg orally once every day, continue with Lasix 20 mg orally once every day along with potassium supplements 9. DVT prophylaxis. we will continue with Eliquis 5 mg po bid 10. GI prophylaxis. Continue Protonix 40 mg orally once every day. 11. Likely will require subacute rehabilitation. Objective - Vital Signs Vital signs: Vital Signs Temp 98.2 F 08/21/24 01:55 Pulse 63 08/21/24 01:55 Resp 14 08/21/24 01:55 BP 154/63 08/21/24 01:55 Pulse Ox 93 L 08/21/24 01:55 FiO2 Intake & Output 08/20/24 08/21/24 08/21/24 18:59 06:59 18:59 Intake Total 525 Balance 525 Weight 68.039 kg 68.039 kg Intake: Intake, IV Titration 525 Amount Sodium Chloride 0.9% 1, 525 000 ml @ 75 mls/hr IV . [id number] [facility] Rx#:[id number] Other: Voiding Method Urinal - Labs CBC & Chem 7: 08/21/24 05:16 08/21/24 05:16 Labs: Abnormal Lab Results - Last 24 Hours (Table) 08/20/24 08/20/24 Range/Units 10:30 10:30 RBC 3.52 L (4.30-5.90) m/uL Hgb 11.7 L (13.0-17.5) gm/dL Hct 34.8 L (39.0-53.0) % Sodium 136 L (137-145) mmol/L Chloride 108 H (98-107) mmol/L Carbon Dioxide 19 L (22-30) mmol/L BUN 23 H (9-20) mg/dL Glucose 117 H (74-99) mg/dL Calcium 7.6 L (8.4-10.2) mg/dL AST 16 L (17-59) U/L Total Protein 4.9 L (6.3-8.2) g/dL Albumin 2.7 L (3.5-5.0) g/dL
--- NOTE | 2024-08-22 14:54 | P.PN ---
Subjective Progress Note Date: 08/22/24 HISTORY OF PRESENT ILLNESS: This is an 89-year-old male patient of eduardo and Dr. Myers with a past medical history coronary artery disease status post PCI of the LAD and RCA, history of hypertension, hyperlipidemia BPH, neck and back surgeries for degenerative arthritis, patient was hospitalized at [facility] in 05/31/2023 and he was found to have a significant stenosis of the proximal LAD after heart cath physician that was done by Dr. Quintana, he underwent left heart catheterization with PCI of the proximal LAD using a size stents, and he did have a balloon angioplasty for dilatation as well, patient has done well over the last few months, patient presented to the emergency department at [facility] last night because of generalized fatigue and weakness and not able to do anything, unfortunately his who is the primary caregiver for him is not able to help him at home because of the risk of falling and possible hurting himself due to the fact that he is taking Eliquis 5 mg orally twice every day, patient was admitted to the hospital for evaluation by physical therapy and possible psych social worker consultation for discharge planning hopefully subacute re habilitation of some physical therapy and rehabilitation 08/21: Patient is laying down in bed in no apparent distress, patient was seen by physical therapy today, he got out of the bed using a walker, and he is ambulating to the bathroom and to the hallway and came back, await psych social worker consultation for possible subacute rehabilitation., patient continues to have issues with balance he continues to have an increased risk of falling and harming harming himself I believe the patient would benefit from subacute rehabilitation for strengthening exercises, otherwise we can have to make decision whether or not the patient need to be staying on blood thinner. 08/22: Patient is laying down in bed in no apparent distress, he will continue to work with physical therapy, will continue further improvement or not the patient qualify to go for subacute rehabilitation or not if you will patient and his have decided on [facility]. REVIEW OF SYSTEMS: Constitutional: No documented fever, no chills, no night sweats. No weight change. positive for weakness, fatigue or lethargy. No daytime sleepiness. HEENT: No headache. No blurred vision or double vision, no loss of vision. No loss of Hearing, no ringing in the ears, no dizziness. No nasal drainage or congestion. No epistaxis. No sore throat. Lungs: Positive for shortness of breath, no cough, no sputum production. No wheezing. Reports dyspnea with activity. Cardiovascular: No chest pain, no lower extremity edema. No palpitations. No paroxysmal nocturnal dyspnea. No orthopnea. No lightheadedness or dizziness. No syncopal episodes. Abdominal: Reports no abdominal pain. positive for nausea, vomiting. No diarrhea. No constipation. No bloody or tarry stools reports loss of appetite. Genitourinary: positive for urinary frequency. Musculoskeletal: No myalgias. Positive for muscle weakness,positive for gait dysfunction, positive for frequent falls, positive for back pain, and neck pain. Positive for loss of balance. Integumentary: No wounds, no lesions. No rash or pruritus. No unusual bruising. No change in hair or nails. Neurologic: No aphasia. No facial droop. No change in mentation. No head injury. No headache. No paralysis. No paresthesia. Psychiatric: positive for depression. No anxiety. positive for mood swings. Endocrine: No abnormal blood sugars. No weight change. PHYSICAL EXAMINATION: General: 89-year-old male lying down in bed in no apparent distress. HEENT: Head is atraumatic, normocephalic, pupils were equal round reactive to light and recommendation, extraocular muscle movement were intact, sclera nonicteric, conjunctivae were pale, mucous membranes of the mouth are somewhat dry. Neck: Supple, no JVP, normal carotid upstroke bilaterally, no lymphadenopathy. Chest: Decreased breath sounds at the bases, few rhonchi, no extremity wheezes, no chest wall tenderness, no intercostal retractions. Heart: First heart sound is normal, second heart sounds normal there is systolic ejection murmur 2/6 located in the left sternal border. Abdomen: Soft, nontender, nondistended, positive bowel sounds. Extremities: There is no edema no calf tenderness DP +2 bilaterally. Neurologic examination: Patient is awake alert and oriented X 3, cranial nerves II-12 appear grossly intact, muscle power were 4 out of 5 in upper extremities and 3 out of 5 in bilateral lower extremities, deep tendon reflexes normal bilaterally. ASSESSMENT AND PLAN: 1. loss of balance and recurrent falls with inability of carrying out activities of daily living. Patient was admitted to the hospital for safety issues, physical therapy evaluation tomorrow morning, psych social worker consultation for discharge planning likely subacute rehabilitation 2. Paroxysmal atrial fibrillation. Continue patient on Eliquis 5 mg orally twice every day he has been off beta-shayy due to bradycardia and syncopal episode. 3. History of CAD post-PCI of the LAD and RCA. Last heart catheterization November 2019 showed stable disease. Continue aspirin 81 mg once every day, Lipitor 80 mg once every day, lisinopril 10 mg every day, isosorbide 20 mg orally twice every day. 4. Hypertension and hypertensive cardiovascular disease. Continue lisinopril 10 mg orally once every day. 5. Hyperlipidemia. Continue Lipitor 80 mg once every day, keep LDL cholesterol 55-70. 6. Enlarged prostate continue Flomax 0.4 mg once every day. 7. 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 Continue with physical therapy as needed. 8. Chronic diastolic heart failure. Continue patient on lisinopril 10 mg orally once every day, continue with Lasix 20 mg orally once every day along with potassium supplements 9. DVT prophylaxis. we will continue with Eliquis 5 mg po bid 10. GI prophylaxis. Continue Protonix 40 mg orally once every day. 11. Likely will require subacute rehabilitation. Objective - Vital Signs Vital signs: Vital Signs Temp 97.8 F 08/22/24 02:00 Pulse 71 08/22/24 02:00 Resp 14 08/22/24 02:00 BP 143/57 08/22/24 02:00 Pulse Ox 96 08/22/24 02:00 FiO2 Intake & Output 08/21/24 08/21/24 08/22/24 06:59 18:59 06:59 Intake Total 525 2877 200 Output Total 100 Balance 525 2777 200 Weight 68.039 kg Intake: Intake, IV Titration 525 Amount Sodium Chloride 0.9% 1, 525 000 ml @ 75 mls/hr IV . [id number] [facility] Rx#:[id number] Oral 2877 200 Output: Urine 100 Other: Voiding Method Urinal Urinal Toilet Urinal # Voids 5 4 # Bowel Movements 2 - Labs CBC & Chem 7: 08/21/24 05:16 08/21/24 05:16 Labs: Abnormal Lab Results - Last 24 Hours (Table) 02/11/25 02/11/25 Range/Units 05:16 05:16 RBC 3.51 L (4.40-5.60) X 10*6/uL Hgb 11.5 L (13.0-17.0) g/dL Hct 34.9 L (39.6-50.0) % MCV 99.4 H (80.0-97.0) FL MCH 32.8 H (27.0-32.0) pg Carbon Dioxide 20.1 L (21.6-31.8) mmol/L Calcium 8.2 L (8.7-10.3) mg/dL Total Protein 5.3 L (6.2-8.2) g/dL Albumin 3.3 L (3.8-4.9) g/dL
--- NOTE | 2024-08-23 12:36 | P.PN ---
Subjective Progress Note Date: 08/23/24 HISTORY OF PRESENT ILLNESS: This is an 89-year-old male patient of eduardo and Dr. Myers with a past medical history coronary artery disease status post PCI of the LAD and RCA, history of hypertension, hyperlipidemia BPH, neck and back surgeries for degenerative arthritis, patient was hospitalized at [facility] in 05/31/2023 and he was found to have a significant stenosis of the proximal LAD after heart cath physician that was done by Dr. Quintana, he underwent left heart catheterization with PCI of the proximal LAD using a size stents, and he did have a balloon angioplasty for dilatation as well, patient has done well over the last few months, patient presented to the emergency department at [facility] last night because of generalized fatigue and weakness and not able to do anything, unfortunately his who is the primary caregiver for him is not able to help him at home because of the risk of falling and possible hurting himself due to the fact that he is taking Eliquis 5 mg orally twice every day, patient was admitted to the hospital for evaluation by physical therapy and possible social work nurse consultation for discharge planning hopefully subacute re habilitation of some physical therapy and rehabilitation 08/21: Patient is laying down in bed in no apparent distress, patient was seen by physical therapy today, he got out of the bed using a walker, and he is ambulating to the bathroom and to the hallway and came back, await social work nurse consultation for possible subacute rehabilitation., patient continues to have issues with balance he continues to have an increased risk of falling and harming harming himself I believe the patient would benefit from subacute rehabilitation for strengthening exercises, otherwise we can have to make decision whether or not the patient need to be staying on blood thinner. 08/22: Patient is laying down in bed in no apparent distress, he will continue to work with physical therapy, will continue further improvement or not the patient qualify to go for subacute rehabilitation or not if you will patient and his have decided on [facility]. 08/23: Patient continues to participate with physical therapy at this time, he has no complaints today no chest pain or shortness of breath, he uses a walker, he requires assistance with ambulation, patient will benefit from subacute rehabilitation, will try to get a prior authorization for patient to go to [facility] we will keep the patient and family updated when the bed becomes available. REVIEW OF SYSTEMS: Constitutional: No documented fever, no chills, no night sweats. No weight change. positive for weakness, fatigue or lethargy. No daytime sleepiness. HEENT: No headache. No blurred vision or double vision, no loss of vision. No loss of Hearing, no ringing in the ears, no dizziness. No nasal drainage or congestion. No epistaxis. No sore throat. Lungs: Positive for shortness of breath, no cough, no sputum production. No wheezing. Reports dyspnea with activity. Cardiovascular: No chest pain, no lower extremity edema. No palpitations. No paroxysmal nocturnal dyspnea. No orthopnea. No lightheadedness or dizziness. No syncopal episodes. Abdominal: Reports no abdominal pain. positive for nausea, vomiting. No diarrhea. No constipation. No bloody or tarry stools reports loss of appetite. Genitourinary: positive for urinary frequency. Musculoskeletal: No myalgias. Positive for muscle weakness,positive for gait dysfunction, positive for frequent falls, positive for back pain, and neck pain. Positive for loss of balance. Integumentary: No wounds, no lesions. No rash or pruritus. No unusual bruising. No change in hair or nails. Neurologic: No aphasia. No facial droop. No change in mentation. No head injury. No headache. No paralysis. No paresthesia. Psychiatric: positive for depression. No anxiety. positive for mood swings. Endocrine: No abnormal blood sugars. No weight change. PHYSICAL EXAMINATION: General: 89-year-old male lying down in bed in no apparent distress. HEENT: Head is atraumatic, normocephalic, pupils were equal round reactive to light and recommendation, extraocular muscle movement were intact, sclera nonicteric, conjunctivae were pale, mucous membranes of the mouth are somewhat dry. Neck: Supple, no JVP, normal carotid upstroke bilaterally, no lymphadenopathy. Chest: Decreased breath sounds at the bases, few rhonchi, no extremity wheezes, no chest wall tenderness, no intercostal retractions. Heart: First heart sound is normal, second heart sounds normal there is systolic ejection murmur 2/6 located in the left sternal border. Abdomen: Soft, nontender, nondistended, positive bowel sounds. Extremities: There is no edema no calf tenderness DP +2 bilaterally. Neurologic examination: Patient is awake alert and oriented X 3, cranial nerves II-12 appear grossly intact, muscle power were 4 out of 5 in upper extremities and 3 out of 5 in bilateral lower extremities, deep tendon reflexes normal bilaterally. ASSESSMENT AND PLAN: 1. loss of balance and recurrent falls with inability of carrying out activities of daily living. Patient was admitted to the hospital for safety issues, physical therapy evaluation tomorrow morning, social work nurse consultation for discharge planning likely subacute rehabilitation 2. Paroxysmal atrial fibrillation. Continue patient on Eliquis 5 mg orally twice every day he has been off beta-shayy due to bradycardia and syncopal episode. 3. History of CAD post-PCI of the LAD and RCA. Last heart catheterization November 2019 showed stable disease. Continue aspirin 81 mg once every day, Lipitor 80 mg once every day, lisinopril 10 mg every day, isosorbide 20 mg orally twice every day. 4. Hypertension and hypertensive cardiovascular disease. Continue lisinopril 10 mg orally once every day. 5. Hyperlipidemia. Continue Lipitor 80 mg once every day, keep LDL cholesterol 55-70. 6. Enlarged prostate continue Flomax 0.4 mg once every day. 7. 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 Continue with physical therapy as needed. 8. Chronic diastolic heart failure. Continue patient on lisinopril 10 mg orally once every day, continue with Lasix 20 mg orally once every day along with potassium supplements 9. DVT prophylaxis. we will continue with Eliquis 5 mg po bid 10. GI prophylaxis. Continue Protonix 40 mg orally once every day. 11. patient is medically stable to be transferred to [facility] when prior authorization is available. Objective - Vital Signs Vital signs: Vital Signs Temp 97.4 F L 08/23/24 07:44 Pulse 52 L 08/23/24 07:44 Resp 18 08/23/24 07:44 BP 157/68 08/23/24 07:44 Pulse Ox 97 08/23/24 07:44 FiO2 Intake & Output 08/22/24 08/23/24 08/23/24 18:59 06:59 18:59 Intake Total 218 Balance 218 Intake: Oral 218 Other: Voiding Method Toilet Toilet Urinal Urinal # Voids 2 5 - Labs CBC & Chem 7: 08/21/24 05:16 08/21/24 05:16
--- NOTE | 2024-08-24 09:51 | P.DS ---
Providers Date of admission: 08/20/24 14:33 Expected date of discharge: 08/24/24 Attending physician: Nayeli Michel Primary care physician: Nayeli Michel [facility] Course: HISTORY OF PRESENT ILLNESS: This is an 89-year-old male patient of eduardo and Dr. Myers with a past medical history coronary artery disease status post PCI of the LAD and RCA, history of hypertension, hyperlipidemia BPH, neck and back surgeries for degenerative arthritis, patient was hospitalized at [facility] in 05/31/2023 and he was found to have a significant stenosis of the proximal LAD after heart cath physician that was done by Dr. Quintana, he underwent left heart catheterization with PCI of the proximal LAD using a size stents, and he did have a balloon angioplasty for dilatation as well, patient has done well over the last few months, patient presented to the emergency department at [facility] last night because of generalized fatigue and weakness and not able to do anything, unfortunately his who is the primary caregiver for him is not able to help him at home because of the risk of falling and possible hurting himself due to the fact that he is taking Eliquis 5 mg orally twice every day, patient was admitted to the hospital for evaluation by physical therapy and possible social welfare research worker consultation for discharge planning hopefully subacute rehabilitation of some physical therapy and rehabilitation 08/21: Patient is laying down in bed in no apparent distress, patient was seen by physical therapy today, he got out of the bed using a walker, and he is ambulating to the bathroom and to the hallway and came back, await social welfare research worker consultation for possible subacute rehabilitation., patient continues to have issues with balance he continues to have an increased risk of falling and harming harming himself I believe the patient would benefit from subacute rehabilitation for strengthening exercises, otherwise we can have to make decision whether or not the patient need to be staying on blood thinner. 08/22: Patient is laying down in bed in no apparent distress, he will continue to work with physical therapy, will continue further improvement or not the patient qualify to go for subacute rehabilitation or not if you will patient and his have decided on [facility]. 08/23: Patient continues to participate with physical therapy at this time, he has no complaints today no chest pain or shortness of breath, he uses a walker, he requires assistance with ambulation, patient will benefit from subacute rehabilitation, will try to get a prior authorization for patient to go to [facility] we will keep the patient and family updated when the bed becomes available. 08/24: Patient is sitting up in bed in no apparent distress, he continues to work with physical therapy, he is ambulating using walker, he will likely go to [facility] today, if the prior authorization arrives. Discharge diagnoses: 1. loss of balance and recurrent falls with inability of carrying out activities of daily living patient will benefit from subacute rehabilitation 2. Paroxysmal atrial fibrillation. 3. History of CAD post-PCI of the LAD and RCA. 4. Hypertension and hypertensive cardiovascular disease. 5. Hyperlipidemia. 6. Enlarged prostate 7. 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 8. Chronic diastolic heart failure. Patient Condition at Discharge: Stable Plan - Discharge Summary Discharge Rx Participant: No New Discharge Prescriptions: No Action Isosorbide Mononitrate [Ismo] 20 mg PO BID Atorvastatin Calcium [Lipitor] 80 mg PO DAILY Tamsulosin [Flomax] 0.4 mg PO DAILY Potassium Chloride [Klor-Con M20] 20 meq PO DAILY Apixaban [Eliquis] 5 mg PO DAILY Aspirin EC [Ecotrin Low Dose] 81 mg PO HS Escitalopram [Lexapro] 20 mg PO DAILY Furosemide [Lasix] 20 mg PO DAILY lisinopriL [Zestril] 20 mg PO DAILY Primidone [Mysoline] 50 mg PO DAILY Discharge Medication List Isosorbide Mononitrate [Ismo] 20 mg PO BID 03/25/14 [History] Atorvastatin Calcium [Lipitor] 80 mg PO DAILY 08/12/18 [History] Tamsulosin [Flomax] 0.4 mg PO DAILY 12/07/19 [History] Aspirin EC [Ecotrin Low Dose] 81 mg PO HS 06/12/21 [History] Potassium Chloride [Klor-Con M20] 20 meq PO DAILY 09/15/23 [History] Apixaban [Eliquis] 5 mg PO DAILY 10/17/23 [History] Escitalopram [Lexapro] 20 mg PO DAILY 08/20/24 [History] Furosemide [Lasix] 20 mg PO DAILY 08/20/24 [History] Primidone [Mysoline] 50 mg PO DAILY 08/20/24 [History] lisinopriL [Zestril] 20 mg PO DAILY 08/20/24 [History] Follow up Appointment(s)/Referral(s): Nayeli Michel MD [Primary Care Provider] - 1-2 days
[2024-08-24 13:45] VITALS: BP 138/58; PULSE 76; RESP 18; TEMP 97.5
== END 2024-08-24 16:45 ==
LOC: EC 09:58 → 5NMEDONC 14:33
PROVIDERS: ADMIT Internal Medicine; ATTEND Internal Medicine
DX: R53.1 Weakness (principal); S29.9XXA Unspecified injury of thorax, initial encounter; W18.30XA Fall on same level, unspecified, initial encounter; I11.0 Hypertensive heart disease with heart failure; I50.32 Chronic diastolic (congestive) heart failure; I25.10 Atherosclerotic heart disease of native coronary artery without angina pectoris; I48.0 Paroxysmal atrial fibrillation; F03.90 Unspecified dementia, unspecified severity, without behavioral disturbance, psychotic disturbance, mood disturbance, and anxiety; E78.5 Hyperlipidemia, unspecified; N40.1 Benign prostatic hyperplasia with lower urinary tract symptoms; R33.8 Other retention of urine; R53.83 Other fatigue; R19.7 Diarrhea, unspecified; R29.6 Repeated falls; M50.30 Other cervical disc degeneration, unspecified cervical region; M51.369 Other intervertebral disc degeneration, lumbar region without mention of lumbar back pain or lower extremity pain; R26.89 Other abnormalities of gait and mobility; M19.90 Unspecified osteoarthritis, unspecified site; Z79.82 Long term (current) use of aspirin; Z79.01 Long term (current) use of anticoagulants; Z79.899 Other long term (current) drug therapy; Z91.048 Other nonmedicinal substance allergy status; Z95.5 Presence of coronary angioplasty implant and graft
CPT/HCPCS: 96361 ×2; 96360; 99285; 36415; 93005; 97110; 97530 ×6; 97162; 97535; 97166; 80053 ×2; 83690; 83735; 84484; 85025 ×2; 85610; 85730; 81003; 87636; 71046; G0378 ×5

== ENCOUNTER 2024-10-05 13:01 | Inpatient (IN) | payer MEDICARE ==
--- NOTE | 2024-10-05 13:22 | ED ---
Altered Mental Status HPI - General Stated Complaint: AMS Time Seen by Provider: 10/05/24 13:15 Source: RN notes reviewed, old records reviewed Mode of arrival: EMS Limitations: no limitations - History of Present Illness Initial Comments: This is an 89 male to the ER for evaluation of severe weakness episodes of unresponsiveness and difficulty moving. Patient was just after prolonged inpatient rehabilitation, discharged home today he was and had multiple episodes of inability to move and what seemed like unresponsiveness both lower extremity weakness upper extremity weakness and appearance of loss and control of his stool. At this time currently patient has no complaints no chest pain headache shortness of breath abdominal pain no recent trauma no other complaints there is some thought that he might of fallen from a sitting position and is brought in by EMS MD Complaint: altered mental status, confusion Severity: mild Consistency of Symptoms: waxing and waning Associated Symptoms: denies other symptoms Treatments Prior to Arrival: IV fluid, oxygen - Related Data Home Medications Medication Instructions Recorded Confirmed Isosorbide Mononitrate [Ismo] 20 mg PO BID-W/MEALS 03/25/14 10/05/24 Atorvastatin Calcium [Lipitor] 80 mg PO DAILY 08/12/18 10/05/24 Tamsulosin [Flomax] 0.4 mg PO DAILY 12/07/19 10/05/24 Aspirin EC [Ecotrin Low Dose] 81 mg PO HS 06/12/21 10/05/24 Potassium Chloride [Klor-Con M20] 20 meq PO DAILY 09/15/23 10/05/24 Apixaban [Eliquis] 5 mg PO DAILY 10/17/23 10/05/24 Escitalopram [Lexapro] 20 mg PO DAILY 08/20/24 10/05/24 Furosemide [Lasix] 20 mg PO DAILY 08/20/24 10/05/24 lisinopriL [Zestril] 20 mg PO DAILY 08/20/24 10/05/24 Acetaminophen Tab [Tylenol] 650 mg PO Q6H PRN 10/05/24 10/05/24 Nitroglycerin Sl Tabs [Nitrostat] 0.4 mg SUBLINGUAL Q5M PRN 10/05/24 10/05/24 Ondansetron [Zofran] 4 mg PO Q6H PRN 10/05/24 10/05/24 Sennosides [Senokot] 8.6 mg PO BID-W/MEALS 10/05/24 10/05/24 polyethylene glycoL 3350 [Miralax] 17 gm PO DAILY PRN 10/05/24 10/05/24 Allergies Allergy/AdvReac Type Severity Reaction Status Date / Time adhesive tape AdvReac pulls skin Verified 10/05/24 15:07 off adhesive dressings AdvReac pulls skin Uncoded 10/05/24 13:48 off Review of Systems ROS Statement: Those systems with pertinent positive or pertinent negative responses have been documented in the HPI. ROS Other: All systems not noted in ROS Statement are negative. 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, METAL IN BACK, STENT IN HEART X2, NORTH CATARACTS Past Anesthesia/Blood Transfusion Reactions: No Reported Reaction Additional Past Anesthesia/Blood Transfusion Reaction / Comment(s): no hx blood transfusion Date of Last Stent Placement:: 2022 Past Psychological History: No Psychological Hx Reported Smoking Status: Former smoker Past Alcohol Use History: None Reported Past Drug Use History: None Reported - Past Family History Father History Unknown: Yes Family Medical History: Myocardial Infarction (MN) Additional Family Medical History / Comment(s): Several mi's- with major MN Mother History Unknown: Yes Family Medical History: CVA/TIA Daughter(s) History Unknown: Yes Family Medical History: Diabetes Mellitus General Exam General appearance: alert, in no apparent distress, anxious Head exam: Present: atraumatic, normocephalic, normal inspection Eye exam: Present: normal appearance, PERRL, EOMI. Absent: scleral icterus, conjunctival injection, periorbital swelling ENT exam: Present: normal exam, mucous membranes moist Neck exam: Present: normal inspection. Absent: tenderness, meningismus, lymphadenopathy Respiratory exam: Present: normal lung sounds bilaterally. Absent: respiratory distress, wheezes, rales, rhonchi, stridor Cardiovascular Exam: Present: regular rate, normal rhythm, normal heart sounds. Absent: systolic murmur, diastolic murmur, rubs, gallop, clicks GI/Abdominal exam: Present: soft, normal bowel sounds. Absent: distended, tenderness, guarding, rebound, rigid Extremities exam: Present: normal inspection, full ROM, normal capillary refill. Absent: tenderness, pedal edema, joint swelling, calf tenderness Back exam: Present: normal inspection Neurological exam: Present: alert, oriented X3, CN II-XII intact Psychiatric exam: Present: normal affect, normal mood Skin exam: Present: warm, dry, intact, normal color. Absent: rash Course Vital Signs 10/05/24 10/05/24 10/06/24 13:13 19:45 05:45 Temperature 98.5 F Pulse Rate 82 85 66 Pulse Rate [ Right Supine] Respiratory 16 16 18 Rate Blood Pressure 105/46 135/62 150/60 Blood Pressure [Right Arm Supine] O2 Sat by Pulse 97 93 L 97 Oximetry 10/06/24 10/06/24 10/06/24 07:17 08:59 15:51 Temperature 98.7 F Pulse Rate 71 76 87 Pulse Rate [ Right Supine] Respiratory 16 16 20 Rate Blood Pressure 136/66 137/54 116/63 Blood Pressure [Right Arm Supine] O2 Sat by Pulse 95 97 98 Oximetry 10/06/24 16:00 Temperature 97.5 F L Pulse Rate Pulse Rate [ 96 Right Supine] Respiratory 16 Rate Blood Pressure Blood Pressure 159/70 [Right Arm Supine] O2 Sat by Pulse 91 L Oximetry - Reevaluation(s) Reevaluation #1: 10/05/24 19:59 Records reviewed Prior inpatient hospitalization leading to rehabilitation is reviewed Reevaluation #2: 10/05/24 19:59 Reevaluation patient is to move extremities both upper and lower Family does think patient is still weak Reevaluation #3: 10/05/24 20:00 Patient informed of results and questions answered Reevaluation #4: Was pt. sent in by a medical professional or institution (, PA, COPY CENTER OPERATOR, urgent care, hospital, or senior care...) When possible be specific @ -no Did you speak to anyone other than the patient for history (EMS, parent, family, police, friend...)? What history was obtained from this source @ -no Did you review nursing and triage notes (agree or disagree)? Why? @ -agree Are old charts reviewed (outside hosp., previous admission, EMS record, old EKG, old radiological studies, urgent care reports/EKG's, senior care records)? Report findings @ -yes Differential Diagnosis (chest pain, altered mental status, abdominal pain women, abdominal pain men, vaginal bleeding, weakness, fever, dyspnea, syncope, hea dache, dizziness, GI bleed, back pain, seizure, CVA, palpatations, mental health, musculoskeletal)? @ -prior EKG interpreted by me (3pts min.). @ -yes X-rays interpreted by me (1pt min.). @ -yes negative for acute disease CT interpreted by me (1pt min.). @ -Yes negative for acute disease U/S interpreted by me (1pt. min.). @ -no What testing was considered but not performed or refused? (CT, X-rays, U/S, labs)? Why? @ -none What meds were considered but not given or refused? Why? @ -none Did you discuss the management of the patient with other professionals (professionals i.e. , PA, COPY CENTER OPERATOR, lab, RT, psych nurse, social staff worker, export sales manager, teacher, amphibious operations officer, correctional casework specialist)? Give summary @ -no Was smoking cessation discussed for >3mins.? @ -no Was critical care preformed (if so, how long)? @ -no Were there social determinants of health that impacted care today? How? (Homelessness, low income, unemployed, alcoholism, drug addiction, transportation, low edu. Level, literacy, decrease access to med. care, shelter, rehab)? @ -none Was there de-escalation of care discussed even if they declined (Discuss DNR or withdrawal of care, Hospice)? DNR status @ -no What co-morbidities impacted this encounter? (DM, HTN, Smoking, COPD, CAD, Cancer, CVA, ARF, Chemo, Hep., AIDS, mental health diagnosis, sleep apnea, morbid obesity)? @ -none Was patient admitted / discharged? Hospital course, mention meds given and route, prescriptions, significant lab abnormalities, going to OR and other pertinent info. @ - 89 Male to the ER for evaluation of severe weakness with what appears to be recurrent syncopal event at home, patient does have no focal neurological deficit here on exam but will admit for further evaluation and management, patient was just discharged from his extended care facility and rehabilitation and was at home when this occurred he was unable to move and EMS was called Admitted Undiagnosed new problem with uncertain prognosis? @ -no Drug Therapy requiring intensive monitoring for toxicity (Heparin, Nitro, Insulin, Cardizem)? @ -no Were any procedures done? @ -no Diagnosis/symptom? @ -Syncope, weakness Acute, or Chronic, or Acute on Chronic? @ -Acute Uncomplicated (without systemic symptoms) or Complicated (systemic symptoms)? @ -Complicated Side effects of treatment? @ -no Exacerbation, Progression, or Severe Exacerbation? @ -exacerbation Poses a threat to life or bodily function? How? (Chest pain, [place], [place], pneumonia, PE, COPD, DKA, ARF, appy, cholecystitis, CVA, Diverticulitis, Homicidal, Suicidal, threat to staff... and all critical care pts) @ -yes extremes of age Reevaluation #5: Differential Syncope: Valvular disease, hypertrophic cardiomyopathy, pulmonary embolism, tamponade, tachycardia, bradycardia, MN, hypovolemia, hemorrhage, dissection, anemia, intracranial hemorrhage, seizure, hypoglycemia, carbon monoxide poisoning, this is not meant to be an all-inclusive list. - Consultations Consultation #1: spoke w Dr Michel will admit this patient Medical Decision Making - Medical Decision Making 89 Male to the ER for evaluation of severe weakness with what appears to be recurrent syncopal event at home, patient does have no focal neurological deficit here on exam but will admit for further evaluation and management, patient was just discharged from his extended care facility and rehabilitation and was at home when this occurred he was unable to move and EMS was called - Lab Data Result diagrams: 10/09/24 11:34 10/09/24 11:34 Lab Results 10/05/24 10/05/24 10/05/24 Range/Units 13:50 13:50 13:50 WBC 9.8 (3.8-10.6) k/uL RBC 3.55 L (4.30-5.90) m/uL Hgb 11.4 L (13.0-17.5) gm/dL Hct 34.4 L (39.0-53.0) % MCV 97.0 (80.0-100.0) fL MCH 32.1 (25.0-35.0) pg MCHC 33.1 (31.0-37.0) g/dL RDW 13.1 (11.5-15.5) % Plt Count 199 (150-450) k/uL MPV 7.5 Neutrophils % 82 % Lymphocytes % 11 % Monocytes % 5 % Eosinophils % 1 % Basophils % 0 % Neutrophils # 8.1 H (1.3-7.7) k/uL Lymphocytes # 1.1 (1.0-4.8) k/uL Monocytes # 0.5 (0-1.0) k/uL Eosinophils # 0.1 (0-0.7) k/uL Basophils # 0.0 (0-0.2) k/uL PT 11.7 (10.0-12.5) sec INR 1.1 (<1.2) APTT 24.8 (22.0-30.0) sec Sodium 132 L (137-145) mmol/L Potassium 4.8 (3.5-5.1) mmol/L Chloride 103 (98-107) mmol/L Carbon Dioxide 21 L (22-30) mmol/L Anion Gap 8 mmol/L BUN 35 H (9-20) mg/dL Creatinine 1.00 (0.66-1.25) mg/dL Est GFR (CKD-EPI)AfAm 78 (>60 ml/min/1.73 sqM) Est GFR (CKD-EPI)NonAf 67 (>60 ml/min/1.73 sqM) Glucose 119 H (74-99) mg/dL Calcium 8.6 (8.4-10.2) mg/dL Phosphorus 3.9 (2.5-4.5) mg/dL Magnesium 1.9 (1.6-2.3) mg/dL Total Bilirubin 1.1 (0.2-1.3) mg/dL AST 28 (17-59) U/L ALT 23 (4-49) U/L Alkaline Phosphatase 71 (38-126) U/L Troponin I (0.000-0.034) ng/mL NT-Pro-B Natriuret Pep 2820 pg/mL Total Protein 5.9 L (6.3-8.2) g/dL Albumin 3.4 L (3.5-5.0) g/dL 10/05/24 Range/Units 13:50 WBC (3.8-10.6) k/uL RBC (4.30-5.90) m/uL Hgb (13.0-17.5) gm/dL Hct (39.0-53.0) % MCV (80.0-100.0) fL MCH (25.0-35.0) pg MCHC (31.0-37.0) g/dL RDW (11.5-15.5) % Plt Count (150-450) k/uL MPV Neutrophils % % Lymphocytes % % Monocytes % % Eosinophils % % Basophils % % Neutrophils # (1.3-7.7) k/uL Lymphocytes # (1.0-4.8) k/uL Monocytes # (0-1.0) k/uL Eosinophils # (0-0.7) k/uL Basophils # (0-0.2) k/uL PT (10.0-12.5) sec INR (<1.2) APTT (22.0-30.0) sec Sodium (137-145) mmol/L Potassium (3.5-5.1) mmol/L Chloride (98-107) mmol/L Carbon Dioxide (22-30) mmol/L Anion Gap mmol/L BUN (9-20) mg/dL Creatinine (0.66-1.25) mg/dL Est GFR (CKD-EPI)AfAm (>60 ml/min/1.73 sqM) Est GFR (CKD-EPI)NonAf (>60 ml/min/1.73 sqM) Glucose (74-99) mg/dL Calcium (8.4-10.2) mg/dL Phosphorus (2.5-4.5) mg/dL Magnesium (1.6-2.3) mg/dL Total Bilirubin (0.2-1.3) mg/dL AST (17-59) U/L ALT (4-49) U/L Alkaline Phosphatase (38-126) U/L Troponin I 0.047 H* (0.000-0.034) ng/mL NT-Pro-B Natriuret Pep pg/mL Total Protein (6.3-8.2) g/dL Albumin (3.5-5.0) g/dL - EKG Data -: EKG Interpreted by Me (EKG is sinus 72 GA 236 QRS 106 QTc 418) - Radiology Data Radiology results: report reviewed (CT brain C-spine chest and pelvis x-rays negative for acute disease), image reviewed Disposition Clinical Impression: Generalized weakness, NSTEMI (non-ST elevated myocardial infarction), D ehydration, FTT (failure to thrive) in adult, Syncope, Bilateral leg weakness, Elevated troponin Disposition: ADMITTED IP TO THIS HOSP Condition: Serious Is patient prescribed a controlled substance at d/c from ED?: No Time of Disposition: 20:00
[2024-10-05 14:04] LABS: Basophils % (A) 0 %; Eosinophils # (A) 0.1 k/uL (0-0.7); Eosinophils % (A) 1 %; HCT 34.4 % (39.0-53.0); HGB 11.4 gm/dL (13.0-17.5); Lymphocytes # (A) 1.1 k/uL (1.0-4.8); Lymphocytes % (A) 11 %; MCH 32.1 pg (25.0-35.0); MCHC 33.1 g/dL (31.0-37.0); Mean Platelet Volume 7.5; Monocytes # (A) 0.5 k/uL (0-1.0); Monocytes % (A) 5 %; Neutrophils # (A) 8.1 k/uL (1.3-7.7); Neutrophils % (A) 82 %; Platelet Count 199 k/uL (150-450); RBC 3.55 m/uL (4.30-5.90); RDW 13.1 % (11.5-15.5); WBC 9.8 k/uL (3.8-10.6)
[2024-10-05 14:10] LABS: INR 1.1 (<1.2); Partial Thromboplastin Time 24.8 sec (22.0-30.0); Prothrombin Time 11.7 sec (10.0-12.5)
[2024-10-05 14:16] LABS: ALT 23 U/L (4-49); AST 28 U/L (17-59); African American GFR (CKD) 78 (>60 ml/min/1.73 sqM); Albumin 3.4 g/dL (3.5-5.0); Alkaline Phosphatase 71 U/L (38-126); Anion Gap 8 mmol/L; Blood Urea Nitrogen 35 mg/dL (9-20); Calcium 8.6 mg/dL (8.4-10.2); Carbon Dioxide 21 mmol/L (22-30); Chloride 103 mmol/L (98-107); Glucose 119 mg/dL (74-99); Magnesium 1.9 mg/dL (1.6-2.3); Non-African American GFR(CKD) 67 (>60 ml/min/1.73 sqM); Phosphorus 3.9 mg/dL (2.5-4.5); Potassium 4.8 mmol/L (3.5-5.1); Sodium 132 mmol/L (137-145); Total Bilirubin 1.1 mg/dL (0.2-1.3); Total Protein 5.9 g/dL (6.3-8.2)
[2024-10-05 14:23] LABS: NT-Pro-B-Type Natriuretic Pept 2820 pg/mL
--- NOTE | 2024-10-05 15:21 | CT ---
EXAMINATION TYPE: CT brain cspine wo con DATE OF EXAM: 10/05/2024 3:04 PM COMPARISON: 04/10/2024 CLINICAL INDICATION: Male, 89 years old with history of ams; Altered mental status., TECHNIQUE: Brain: Multiple axial CT images of the brain were obtained without IV contrast. Cspine: Axial CT images from the skull base to the inferior aspect of T2 we obtained without intraven ous contrast. Coronal and sagittal reformatted images were also reviewed. . CT DLP: 1280.9 mGycm, Automated exposure control for dose reduction was used. FINDINGS: Brain: Extra-axial spaces: No abnormal extra-axial fluid collections. Ventricular system: Dilatation in proportion to cerebral atrophy. Cerebral parenchyma: Remote left thalamus injury. No acute intraparenchymal hemorrhage or mass effect . The carreon-white junction is well differentiated. Scattered hypoattenuating areas are seen within th e white matter. Cerebellum: Unremarkable. Mass effect: No evidence of midline shift. Intracranial vasculature: Atherosclerotic calcifications of the intracranial vessels. Soft tissues: Normal. Calvarium/osseous structures: No depressed skull fracture. Paranasal sinuses and mastoid air cells: Clear. Visualized orbits: Bilateral aphakia Cervical spine: Fracture: None. Osseous structures: Extensive postsurgical changes with fusion and majority of the levels of the cerv ical spine. Appears intact. There is old anterior and posterior fusion hardware. Posterior laminectomy changes fr om C3 to T1 present. Multilevel degenerative disc disease changes with endplate spurring and disc ost eophyte complex's. Vertebral alignment: Within normal limits. Spinal canal/Neural Foramina: No evidence of significant spinal canal narrowing. No evidence for sign ificant neural foraminal stenosis. Neck soft tissues: Prevertebral soft tissues are within normal limits. Other: The airway is patent. Mild to moderate paraseptal and centrilobular emphysema changes. Severe atherosclerosis of the arterial vascular. IMPRESSION: 1. No acute intracranial process. 2. Nonspecific white matter changes, likely secondary to chronic small vessel ischemic disease. 3. No evidence of cervical spine fracture. 4. Extensive surgical changes with multilevel degenerative disc disease. Hardware appears intact. 5. Remote left thalamus injury. [facility], , 10/05/2024 3:19 PM
--- NOTE | 2024-10-05 15:26 | XR ---
EXAMINATION TYPE: XR chest 1V DATE OF EXAM: 10/05/2024 3:15 PM COMPARISON: Chest radiographs from TECHNIQUE: XR chest 1V . CLINICAL INDICATION:Male, 89 years old with history of ams; FINDINGS: Lungs/Pleura: There is no evidence of pleural effusion, focal consolidation, or pneumothorax. Chroni c senescent parenchymal change. Pulmonary vascularity: Unremarkable. Heart/mediastinum: Cardiomediastinal silhouette is prominent in size. Atherosclerotic calcifications are seen in the aorta. Musculoskeletal: No acute osseous pathology. Anterior and posterior cervical fusion hardware. Partial visualization of fusion hardware involving the thoracolumbar region. Other findings: Loop recorder overlies the left chest. IMPRESSION: No acute cardiopulmonary disease/process. [facility], , 10/05/2024 3:23 PM
--- NOTE | 2024-10-05 15:26 | XR ---
EXAMINATION TYPE: XR pelvis AP view DATE OF EXAM: 10/05/2024 3:15 PM INDICATION: Patient age:Male; 89 years old; Reason for study: ams; PHH. pain COMPARISON: None TECHNIQUE: The pelvis was examined in a single projection. FINDINGS: There is no evidence of fracture or dislocation. The SI joints appear intact. There is no s oft tissue abnormality. Right-sided pelvic phleboliths. Multilevel degenerative changes of the lower spine. Fusion hardware involving the lumbosacral spine. IMPRESSION: No acute osseous pathology. [facility], , 10/05/2024 3:24 PM
[2024-10-05] MEDS: LACTATED RINGERS 1,000 ML IV ONE (15:40)
[2024-10-05] MEDS ORDERED: NALOXONE 0.4 MG/ML 1 ML VIAL IV PRN (19:56)
[2024-10-05] MEDS: SODIUM CHLORIDE 0.9% 1,000 ML IV SCH (20:12)
[2024-10-05 23:08] LABS: Appearance,Urine Cloudy (Clear); Bilirubin,Urine Negative (Negative); Blood,Urine Negative (Negative); Color,Urine Yellow; Glucose,Urine (UA) Negative (Negative); Hyaline Casts,Urine 1 /lpf (0-2); Ketones,Urine Negative (Negative); Leukocyte Esterase,Urine Negative (Negative); Mucus,Urine Rare /hpf; Nitrite,Urine Negative (Negative); PH, Urine 5.5 (5.0-8.0); Protein,Urine Negative (Negative); RBC,Urine 1 /hpf (0-5); Specific Gravity,Urine 1.023 (1.001-1.035); Squamous Epithelial Cell,Urine 2 /hpf (0-4); Urobilinogen,Urine <2.0 mg/dL (<2.0); WBC,Urine 1 /hpf (0-5)
[2024-10-06 08:01] LABS: Basophils % (A) 0 %; Eosinophils % (A) 0 %; HGB 12.3 gm/dL (13.0-17.5); Lymphocytes % (A) 21 %; MCH 31.7 pg (25.0-35.0); MCHC 33.2 g/dL (31.0-37.0); MCV 95.7 fL (80.0-100.0); Mean Platelet Volume 7.7; Monocytes # (A) 0.7 k/uL (0-1.0); Monocytes % (A) 8 %; Neutrophils # (A) 6.6 k/uL (1.3-7.7); Neutrophils % (A) 69 %; Platelet Count 199 k/uL (150-450); RBC 3.87 m/uL (4.30-5.90); RDW 13.3 % (11.5-15.5); WBC 9.4 k/uL (3.8-10.6)
[2024-10-06 08:23] LABS: ALT 29 U/L (4-49); AST 48 U/L (17-59); African American GFR (CKD) 71 (>60 ml/min/1.73 sqM); Albumin 3.4 g/dL (3.5-5.0); Alkaline Phosphatase 72 U/L (38-126); Anion Gap 7 mmol/L; Blood Urea Nitrogen 37 mg/dL (9-20); Calcium 8.6 mg/dL (8.4-10.2); Carbon Dioxide 23 mmol/L (22-30); Chloride 104 mmol/L (98-107); Glucose 103 mg/dL (74-99); Non-African American GFR(CKD) 61 (>60 ml/min/1.73 sqM); Phosphorus 4.6 mg/dL (2.5-4.5); Potassium 4.4 mmol/L (3.5-5.1); Sodium 134 mmol/L (137-145); Total Bilirubin 1.2 mg/dL (0.2-1.3); Total Protein 5.9 g/dL (6.3-8.2)
[2024-10-06] MEDS ORDERED: NITROGLYCERIN SL TABS 0.4 MG TAB SUBLINGUAL PRN (09:33)
[2024-10-06] MEDS ORDERED: ONDANSETRON ODT 4 MG TAB PO PRN (09:33)
[2024-10-06] MEDS ORDERED: polyethylene glycoL 3350 17 GM POWD.PACK PO PRN (09:33)
[2024-10-06] MEDS: APIXABAN 5 MG TAB PO SCH (10:01)
[2024-10-06] MEDS: POTASSIUM CHLORIDE ER 20 MEQ TAB.ER PO SCH (10:02)
[2024-10-06] MEDS: FUROSEMIDE 20 MG TAB PO SCH (10:02)
[2024-10-06] MEDS: ATORVASTATIN 80 MG TAB PO SCH (10:02)
[2024-10-06] MEDS: lisinopriL 20 MG TAB PO SCH (10:02)
[2024-10-06] MEDS: TAMSULOSIN 0.4 MG CAP.ER.24H PO SCH (10:03)
--- NOTE | 2024-10-06 10:04 | US ---
EXAMINATION TYPE: US carotid duplex BILAT DATE OF EXAM: 10/06/2024 COMPARISON: NONE CLINICAL INDICATION: Male, 89 years old with history of syncope; Syncope Additional History: .... TECHNIQUE: Grayscale, color Doppler and spectral Doppler evaluation of the bilateral carotid systems and vertebral arteries. Indirect Doppler criteria was utilized. FINDINGS: EXAM MEASUREMENTS: RIGHT: Peak Systolic Velocity (PSV) cm/sec ----- Right CCA: 83.5 ----- Right ICA: 185 ----- Right ECA: 109 ICA/CCA ratio: 2.2 RIGHT: End Diastole cm/sec ----- Right CCA: 11.7 ----- Right ICA: 22.3 ----- Right ECA: 0.0 LEFT: Peak Systolic Velocity (PSV) cm/sec ----- Left CCA: 68.5 ----- Left ICA: 170 ----- Left ECA: 269 ICA/CCA ratio: 2.5 LEFT: End Diastole cm/sec ----- Left CCA: 11.5 ----- Left ICA: 25.2 ----- Left ECA: 0.0 VERTEBRALS (direction of flow): Right Vertebral: Antegrade Left Vertebral: Antegrade Rhythm: Normal CLAIMS ACCOUNT SPECIALIST NOTES: Heterogeneous plaque bilaterally, more on left side, with slightly elevated veloci ties and ratios Color Doppler imaging shows patency with blood flow throughout the carotid artery. Spectral waveforms are within normal limits. IMPRESSION: 1. Moderate calcified plaque in the carotid bifurcations and proximal internal carotid arteries. 2. 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 1. Normal (no stenosis)=ICA PSV < 125 cm/s: ratio < 2.0: ICA EDV<40 cm/s. 2. Less than 50% stenosis=ICA PSV < 125 cm/s: ratio < 2.0: ICA EDV<40 cm/s. 3. 50 to 69% stenosis=ICA PSV of 125 to 230 cm/s: ration 2.0 ? 4.0: ICA EDV 40-100 cm/s. 4. Greater than 70% stenosis to near occlusion= ICA PSV > 230 cm/s: ratio > 4.0: ICA EDV > 100 cm/s. 5. Near occlusion= ICA PSV velocities may be low or undetectable: variable ratio and ICA EDV. 6. Total occlusion=unable to detect flow. [facility], , 10/06/2024 10:02 AM
[2024-10-06] MEDS: SENNOSIDES 8.6 MG TAB PO SCH (10:31)
[2024-10-06] MEDS: ISOSORBIDE MONONITRATE 20 MG TAB PO SCH (10:44)
[2024-10-06] MEDS: ESCITALOPRAM 20 MG TAB PO SCH (10:44)
--- NOTE | 2024-10-06 10:46 | P.CRDCN ---
History of Present Illness Consult date: 10/06/24 History of present illness: The patient is a pleasant 89-year-old gentleman who is known to our service from before with a past medical history significant for CAD with prior stenting of the RCA and LAD as well as paroxysmal atrial fibrillation and hypertension and dyslipidemia and history of loop recorder implantation after an episode of syncope. We requested to see the patient in the emergency department for further evaluation of syncope. The patient is extremely poor historian and he is slightly confused and apparently does have mild underlying dementia. He was brought after he has been falling with unknown if there is a change in mental status. No symptoms of chest pain or chest discomfort. No shortness of his with no feeling of heart racing or fluttering. Further evaluation was performed including a chest x-ray came to be overall unremarkable and EKG showing sinus mechanism with nonspecific ST and T wave abnormalities with the first set of troponin came to be mildly abnormal. The patient was seen by our service back in 2022 when he presented with syncope and underwent loop recorder implantation and at that point he underwent an echo which revealed normal LV systolic function with evidence of mild aortic stenosis. On examination today he does have definitely significant systolic murmur at the right upper and left upper sternal border with decrease in the intensity of S2 with clear breathing sounds bilaterally and no edema was noted. He underwent also today a CT scan of the brain which came to be unremarkable Assessment Questionable history of syncope Evidence of myocardial injury with no evidence of ischemia Valvular heart disease with known aortic stenosis Significant systolic murmur on examination Paroxysmal atrial fibrillation Multiple comorbid conditions Change in mental status Plan Continue the current medical regimen Further cardiac workup including serial cardiac enzymes and second and third set of troponin Obtain an echo to assess for any progression in the severity of aortic stenosis Further recommendation to follow Past Medical History Past Medical History: Hyperlipidemia, Hypertension, Myocardial Infarction (DC), Osteoarthritis (OA), Pneumonia, Prostate Disorder Additional Past Medical History / Comment(s): enlarged prostate-currently has march catheter, has some balance issue-uses walker when outside home, sinus problems Last Myocardial Infarction Date:: 1993 History of Any Multi-Drug Resistant Organisms: None Reported Past Surgical History: Back Surgery, Heart Catheterization, Heart Catheterization With Stent, Tonsillectomy Additional Past Surgical History / Comment(s): 2 Neck surgery, STATES HAS "PLASTIC" IN NECK, METAL IN BACK, STENT IN HEART X2, NORTH CATARACTS Past Anesthesia/Blood Transfusion Reactions: No Reported Reaction Additional Past Anesthesia/Blood Transfusion Reaction / Comment(s): no hx blood transfusion Date of Last Stent Placement:: 2022 Past Psychological History: No Psychological Hx Reported Smoking Status: Former smoker Past Alcohol Use History: None Reported Past Drug Use History: None Reported - Past Family History Father History Unknown: Yes Family Medical History: Myocardial Infarction (DC) Additional Family Medical History / Comment(s): Several mi's- with major DC Mother History Unknown: Yes Family Medical History: CVA/TIA Daughter(s) History Unknown: Yes Family Medical History: Diabetes Mellitus Medications and Allergies Home Medications Medication Instructions Recorded Confirmed Type Isosorbide Mononitrate [Ismo] 20 mg PO BID-W/MEALS 03/25/14 10/05/24 History Atorvastatin Calcium [Lipitor] 80 mg PO DAILY 08/12/18 10/05/24 History Tamsulosin [Flomax] 0.4 mg PO DAILY 12/07/19 10/05/24 History Aspirin EC [Ecotrin Low Dose] 81 mg PO HS 06/12/21 10/05/24 History Potassium Chloride [Klor-Con M20] 20 meq PO DAILY 09/15/23 10/05/24 History Apixaban [Eliquis] 5 mg PO DAILY 10/17/23 10/05/24 History Escitalopram [Lexapro] 20 mg PO DAILY 08/20/24 10/05/24 History Furosemide [Lasix] 20 mg PO DAILY 08/20/24 10/05/24 History lisinopriL [Zestril] 20 mg PO DAILY 08/20/24 10/05/24 History Acetaminophen Tab [Tylenol] 650 mg PO Q6H PRN 10/05/24 10/05/24 History Nitroglycerin Sl Tabs [Nitrostat] 0.4 mg SUBLINGUAL Q5M PRN 10/05/24 10/05/24 History Ondansetron [Zofran] 4 mg PO Q6H PRN 10/05/24 10/05/24 History Sennosides [Senokot] 8.6 mg PO BID-W/MEALS 10/05/24 10/05/24 History polyethylene glycoL 3350 [Miralax] 17 gm PO DAILY PRN 10/05/24 10/05/24 History Allergies Allergy/AdvReac Type Severity Reaction Status Date / Time adhesive tape AdvReac pulls skin Verified 10/05/24 15:07 off adhesive dressings AdvReac pulls skin Uncoded 10/05/24 13:48 off Physical Exam Vitals: Vital Signs Temp Pulse Resp BP Pulse Ox 10/06/24 08:59 76 16 137/54 97 10/06/24 07:17 71 16 136/66 95 10/06/24 05:45 66 18 150/60 97 10/05/24 19:45 85 16 135/62 93 L 10/05/24 13:13 98.5 F 82 16 105/46 97 Results 10/06/24 07:44 10/06/24 07:44 Cardiac Enzymes 10/05/24 10/05/24 10/06/24 Range/Units 13:50 13:50 07:44 AST 28 48 (17-59) U/L Troponin I 0.047 H* (0.000-0.034) ng/mL Coagulation 10/05/24 Range/Units 13:50 PT 11.7 (10.0-12.5) sec APTT 24.8 (22.0-30.0) sec CBC 10/05/24 10/06/24 Range/Units 13:50 07:44 WBC 9.8 9.4 (3.8-10.6) k/uL RBC 3.55 L 3.87 L (4.30-5.90) m/uL Hgb 11.4 L 12.3 L (13.0-17.5) gm/dL Hct 34.4 L 37.0 L (39.0-53.0) % Plt Count 199 199 (150-450) k/uL Comprehensive Metabolic Panel 10/05/24 10/06/24 Range/Units 13:50 07:44 Sodium 132 L 134 L (137-145) mmol/L Potassium 4.8 4.4 (3.5-5.1) mmol/L Chloride 103 104 (98-107) mmol/L Carbon Dioxide 21 L 23 (22-30) mmol/L BUN 35 H 37 H (9-20) mg/dL Creatinine 1.00 1.08 (0.66-1.25) mg/dL Glucose 119 H 103 H (74-99) mg/dL Calcium 8.6 8.6 (8.4-10.2) mg/dL AST 28 48 (17-59) U/L ALT 23 29 (4-49) U/L Alkaline Phosphatase 71 72 (38-126) U/L Total Protein 5.9 L 5.9 L (6.3-8.2) g/dL Albumin 3.4 L 3.4 L (3.5-5.0) g/dL Current Medications Generic Name Dose Route Start Last Admin Trade Name Freq PRN Reason Stop Dose Admin Acetaminophen 650 mg 10/06/24 09:33 Acetaminophen Tab 325 Mg Tab PO Q6H PRN Pain or Fever > 100.5 Apixaban 5 mg 10/06/24 09:45 10/06/24 10:01 Apixaban 5 Mg Tab PO 5 mg DAILY [facility] Administration Protocol Aspirin 81 mg 10/06/24 21:00 Aspirin 81 Mg PO HS [facility] Atorvastatin Calcium 80 mg 10/06/24 09:45 10/06/24 10:02 Atorvastatin 80 Mg Tab PO 80 mg DAILY [facility] Administration Escitalopram Oxalate 20 mg 10/06/24 09:45 Escitalopram 20 Mg Tab PO DAILY [facility] Furosemide 20 mg 10/06/24 09:45 10/06/24 10:02 Furosemide 20 Mg Tab PO 20 mg DAILY [facility] Administration Sodium Chloride 1,000 mls @ 75 mls/hr 10/05/24 20:00 10/06/24 08:58 Saline 0.9% IV 75 mls/hr .[id number] [facility] Administration Isosorbide Mononitrate 20 mg 10/06/24 09:45 Isosorbide Mononitrate 20 Mg Tab PO BID-W/MEALS [facility] Lisinopril 20 mg 10/06/24 09:45 10/06/24 10:02 Lisinopril 20 Mg Tab PO 20 mg DAILY [facility] Administration Naloxone HCl 0.2 mg 10/05/24 19:56 Naloxone 0.4 Mg/Ml 1 Ml Vial IV Q2M PRN Opioid Reversal Nitroglycerin 0.4 mg 10/06/24 09:33 Nitroglycerin Sl Tabs 0.4 Mg Tab SUBLINGUAL Q5M PRN Chest Pain Ondansetron HCl 4 mg 10/06/24 09:33 Ondansetron Odt 4 Mg Tab PO Q6H PRN Nausea And Vomiting Polyethylene Glycol 17 gm 10/06/24 09:33 Polyethylene Glycol 3350 17 Gm Powd.Pack PO DAILY PRN Constipation Potassium Chloride 20 meq 10/06/24 09:45 10/06/24 10:02 Potassium Chloride Er 20 Meq Tab.Er PO 20 meq DAILY [facility] Administration Senna 8.6 mg 10/06/24 09:45 10/06/24 10:31 Sennosides 8.6 Mg Tab PO Not Given BID-W/MEALS [facility] Tamsulosin HCl 0.4 mg 10/06/24 09:45 10/06/24 10:03 Tamsulosin 0.4 Mg Cap.Er.24h PO 0.4 mg DAILY [facility] Administration 10/06/24 07:44 10/06/24 07:44
[2024-10-06] MEDS ORDERED: HEPARIN SODIUM 1,000 UN/ML (10ML VL) IV PRN (11:09)
--- NOTE | 2024-10-06 11:12 | P.HPIM ---
History of Present Illness H&P Date: 10/06/24 Chief Complaint: Syncope HISTORY OF PRESENT ILLNESS: This is an 89-year-old male patient of eduardo and Dr. Myers with a past medical history coronary artery disease status post PCI of the LAD and RCA, history of hypertension, hyperlipidemia BPH, neck and back surgeries for degenerative arthritis, patient was hospitalized at [facility] in 05/31/2023 and he was found to have a significant stenosis of the proximal LAD after heart cath physician that was done by Dr. Qunitana, he underwent left heart catheterization with PCI of the proximal LAD Xience stent, and he did have a balloon angioplasty for dilatation as well, patient has done well over the last few months, patient was recently hospitalized at [facility] from September 02 August 24 after recurrent falls and not able to ambulate on his own, he was sent to [facility] for physical therapy and rehabilitation, patient had a matter fact was discharged from our yesterday, he went home as the patient did not want to stay over there, on the way home patient was extremely weak, his and his daughter managed to get him to the house, however the patient had a syncopal episode, they thought that he had had a stroke because he was unresponsive for few minutes, EMS was called and the patient was brought into the emergency department at [facility], had a CT scan of the brain 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, CT of the cervical spine showed significant degenerative disc disease of the cervical spine with extensive surgical changes with hardware intact, chest x-ray was negative, twelve-lead EKG showed normal sinus rhythm with first-degree AV block with Q waves inferiorly suggestive of old MS, x-rays of the pelvis did not show any evidence of any acute fracture, but the patient otherwise did not have any focal neurological deficit, his EKG did not show any evidence of acute ST-T wave changes just sinus rhythm with first-degree AV block and old Q waves in the inferior leads., but because of the presentation he was admitted to the hospital for evaluation by cardiology as well as by neurology, patient was placed on the monitor bed, he will be seen in consultation by physical therapy and Occupational Therapy along with criminal justice social worker as the patient I believe not able to be home at this point in time may need to have a placement for 24-hour care. REVIEW OF SYSTEMS: Constitutional: No documented fever, no chills, no night sweats. No weight change. positive for weakness, fatigue or lethargy. No daytime sleepiness. HEENT: No headache. No blurred vision or double vision, no loss of vision. No loss of Hearing, no ringing in the ears, no dizziness. No nasal drainage or congestion. No epistaxis. No sore throat. Lungs: Positive for shortness of breath, no cough, no sputum production. No wheezing. Reports dyspnea with activity. Cardiovascular: No chest pain, no lower extremity edema. No palpitations. No paroxysmal nocturnal dyspnea. No orthopnea. Positive for lightheadedness, positive for syncope Abdominal: Reports no abdominal pain. positive for nausea, vomiting. No diarrhea. No constipation. No bloody or tarry stools reports loss of appetite. Genitourinary: positive for urinary frequency. Musculoskeletal: No myalgias. Positive for muscle weakness,positive for gait dysfunction, positive for frequent falls, positive for back pain, and neck pain. Positive for loss of balance. Integumentary: No wounds, no lesions. No rash or pruritus. Positive for unusual bruising. No change in hair or nails. Neurologic: No aphasia. No facial droop. No change in mentation. No head injury. No headache. No paralysis. No paresthesia. Psychiatric: positive for depression. No anxiety. positive for mood swings. Endocrine: No abnormal blood sugars. Positive for weight change. PAST MEDICAL HISTORY: CAD post-PCI of the LAD and RCA. Minimal LV dysfunction. Hypertension and hypertensive cardiovascular disease. Hyperlipidemia. Essential tremor. BPH . 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 Recurrent falls. Atrial fibrillation. urinary retention COVID-19 Moderate aortic valve stenosis Mitral regurgitation PAST SURGICAL HISTORY: Posterior cervical discectomy with fusion. Lumbar discectomy with fusion . Bilateral cataract surgery Left heart catheterization with PCI of the LAD and RCA. SOCIAL HISTORY: Patient used to smoke about pack every day he started smoking when he was 18-year-old and quit in 1989 patient used to be heavy drinker he quit drinking in 1986 he lives with his , he uses a cane for immolation, he denies any drug use or abuse. FAMILY HISTORY: Father at age of 78 from multiple injuries due to pedestrian motor vehicle accident injury but he had several MIs, mother at age of 80 from CVA/TIA, patient has 2 daughters one with obesity hypertension hyperlipidemia and diabetes mellitus type 2, the other one with MS. PHYSICAL EXAMINATION: General: 89-year-old male lying down in bed in no apparent distress. HEENT: Head is atraumatic, normocephalic, pupils were equal round reactive to light and recommendation, extraocular muscle movement were intact, sclera nonicteric, conjunctivae were pale, mucous membranes of the mouth are somewhat dry. Neck: Supple, no JVP, normal carotid upstroke bilaterally, no lymphadenopathy. Chest: Decreased breath sounds at the bases, few rhonchi, no extremity wheezes, no chest wall tenderness, no intercostal retractions. Heart: First heart sound is normal, second heart sounds normal there is systolic ejection murmur 2/6 located in the left sternal border. Abdomen: Soft, nontender, nondistended, positive bowel sounds. Extremities: There is no edema no calf tenderness DP +2 bilaterally. Neurologic examination: Patient is awake alert and oriented X 3, cranial nerves II-12 appear grossly intact, muscle power were 3 out of 5 in upper extremities and 3 out of 5 in bilateral lower extremities, deep tendon reflexes normal bilaterally. ASSESSMENT AND PLAN: 1. Syncopal episode likely related to autonomic dysfunction versus cardiac arrhythmia patient will be admitted to telemetry bed, cardiac enzymes negative, EKG did not show evidence of acute ST T wave changes, CT scan of the brain negative, I will obtain neurology consultation as well, along with cardiology consultation, he will be seen by physical therapy and Occupational Therapy, ultrasound of the carotids showed evidence of moderate stenosis of bilateral carotid artery, will consult vascular surgery for recommendation, continue patient on current treatment plan, echocardiogram is ordered still pending at time of dictation, neurology consultation still pending. 2. Non-ST elevation myocardial infarction. Patient was taken off Eliquis, he was started on heparin drip, continue with atorvastatin 80 mg once every day, cardiology consultation appreciated, echocardiogram was ordered still pending at the time of dictation. 3. Paroxysmal atrial fibrillation. Patient was taken off Eliquis per cardiology, he was started on heparin drip for now. 4. History of CAD post-PCI of the LAD and RCA. Last heart catheterization November 2019 showed stable disease. Continue aspirin 81 mg once every day, Lipitor 80 mg once every day, lisinopril 20 mg every day, isosorbide 20 mg orally twice every day. 5. Hypertension and hypertensive cardiovascular disease. Continue lisinopril 20 mg orally once every day 6. Hyperlipidemia. Continue Lipitor 80 mg once every day, keep LDL cholesterol 55-70. 7. Enlarged prostate continue Flomax 0.4 mg once every day. 8. Moderate aortic valve stenosis. Echocardiogram was ordered still pending at time of dictation. 9. Prerenal azotemia. Start the patient on IV fluid in the form of normal saline 75 cc an hour, reevaluate the patient CMP in the next 24 hours 10. 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 Continue with physical therapy as needed. 11. Chronic diastolic heart failure. Continue patient on lisinopril 20 mg orally once every day, patient will be taken off Lasix and potassium supplement due to the fact that he is minimally dehydrated. 12. DVT prophylaxis. Hold Eliquis patient was started on heparin drip due to non-ST elevation MS 13. GI prophylaxis. Continue Protonix 40 mg orally once every day. 14. Admit to inpatient. Estimated length of stay 2 midnights 15. Patient is full code Past Medical History Past Medical History: Hyperlipidemia, Hypertension, Myocardial Infarction (MS), Osteoarthritis (OA), Pneumonia, Prostate Disorder Additional Past Medical History / Comment(s): enlarged prostate-currently has march catheter, has some balance issue-uses walker when outside home, sinus problems Last Myocardial Infarction Date:: 1993 History of Any Multi-Drug Resistant Organisms: None Reported Past Surgical History: Back Surgery, Heart Catheterization, Heart Catheterization With Stent, Tonsillectomy Additional Past Surgical History / Comment(s): 2 Neck surgery, STATES HAS "PLASTIC" IN NECK, METAL IN BACK, STENT IN HEART X2, NORTH CATARACTS Past Anesthesia/Blood Transfusion Reactions: No Reported Reaction Additional Past Anesthesia/Blood Transfusion Reaction / Comment(s): no hx blood transfusion Date of Last Stent Placement:: 2022 Past Psychological History: No Psychological Hx Reported Smoking Status: Former smoker Past Alcohol Use History: None Reported Past Drug Use History: None Reported - Past Family History Father History Unknown: Yes Family Medical History: Myocardial Infarction (MS) Additional Family Medical History / Comment(s): Several mi's- with major MS Mother History Unknown: Yes Family Medical History: CVA/TIA Daughter(s) History Unknown: Yes Family Medical History: Diabetes Mellitus Medications and Allergies Home Medications Medication Instructions Recorded Confirmed Type Isosorbide Mononitrate [Ismo] 20 mg PO BID-W/MEALS 03/25/14 10/05/24 History Atorvastatin Calcium [Lipitor] 80 mg PO DAILY 08/12/18 10/05/24 History Tamsulosin [Flomax] 0.4 mg PO DAILY 12/07/19 10/05/24 History Aspirin EC [Ecotrin Low Dose] 81 mg PO HS 06/12/21 10/05/24 History Potassium Chloride [Klor-Con M20] 20 meq PO DAILY 09/15/23 10/05/24 History Apixaban [Eliquis] 5 mg PO DAILY 10/17/23 10/05/24 History Escitalopram [Lexapro] 20 mg PO DAILY 08/20/24 10/05/24 History Furosemide [Lasix] 20 mg PO DAILY 08/20/24 10/05/24 History lisinopriL [Zestril] 20 mg PO DAILY 08/20/24 10/05/24 History Acetaminophen Tab [Tylenol] 650 mg PO Q6H PRN 10/05/24 10/05/24 History Nitroglycerin Sl Tabs [Nitrostat] 0.4 mg SUBLINGUAL Q5M PRN 10/05/24 10/05/24 History Ondansetron [Zofran] 4 mg PO Q6H PRN 10/05/24 10/05/24 History Sennosides [Senokot] 8.6 mg PO BID-W/MEALS 10/05/24 10/05/24 History polyethylene glycoL 3350 [Miralax] 17 gm PO DAILY PRN 10/05/24 10/05/24 History Allergies Allergy/AdvReac Type Severity Reaction Status Date / Time adhesive tape AdvReac pulls skin Verified 10/05/24 15:07 off adhesive dressings AdvReac pulls skin Uncoded 10/05/24 13:48 off Physical Exam Vitals: Vital Signs Temp Pulse Resp BP Pulse Ox 10/06/24 08:59 76 16 137/54 97 10/06/24 07:17 71 16 136/66 95 10/06/24 05:45 66 18 150/60 97 10/05/24 19:45 85 16 135/62 93 L 10/05/24 13:13 98.5 F 82 16 105/46 97 Results CBC & Chem 7: 10/06/24 07:44 10/06/24 07:44 Labs: Abnormal Lab Results - Last 24 Hours (Table) 10/05/24 10/05/24 10/05/24 Range/Units 13:50 13:50 13:50 RBC 3.55 L (4.30-5.90) m/uL Hgb 11.4 L (13.0-17.5) gm/dL Hct 34.4 L (39.0-53.0) % Neutrophils # 8.1 H (1.3-7.7) k/uL Sodium 132 L (137-145) mmol/L Carbon Dioxide 21 L (22-30) mmol/L BUN 35 H (9-20) mg/dL Glucose 119 H (74-99) mg/dL Phosphorus (2.5-4.5) mg/dL Creatine Kinase (55-170) U/L Troponin I 0.047 H* (0.000-0.034) ng/mL Total Protein 5.9 L (6.3-8.2) g/dL Albumin 3.4 L (3.5-5.0) g/dL Urine Mucus (None) /hpf 10/05/24 10/05/24 10/06/24 Range/Units 22:46 22:46 07:44 RBC 3.87 L (4.30-5.90) m/uL Hgb 12.3 L (13.0-17.5) gm/dL Hct 37.0 L (39.0-53.0) % Neutrophils # (1.3-7.7) k/uL Sodium (137-145) mmol/L Carbon Dioxide (22-30) mmol/L BUN (9-20) mg/dL Glucose (74-99) mg/dL Phosphorus (2.5-4.5) mg/dL Creatine Kinase 325 H (55-170) U/L Troponin I (0.000-0.034) ng/mL Total Protein (6.3-8.2) g/dL Albumin (3.5-5.0) g/dL Urine Mucus Rare H (None) /hpf 10/06/24 Range/Units 07:44 RBC (4.30-5.90) m/uL Hgb (13.0-17.5) gm/dL Hct (39.0-53.0) % Neutrophils # (1.3-7.7) k/uL Sodium 134 L (137-145) mmol/L Carbon Dioxide (22-30) mmol/L BUN 37 H (9-20) mg/dL Glucose 103 H (74-99) mg/dL Phosphorus 4.6 H (2.5-4.5) mg/dL Creatine Kinase (55-170) U/L Troponin I (0.000-0.034) ng/mL Total Protein 5.9 L (6.3-8.2) g/dL Albumin 3.4 L (3.5-5.0) g/dL Urine Mucus (None) /hpf
[2024-10-06] MEDS: HEPARIN SOD,PORK IN 0.45% NACL 25,000 UNIT in 0.45% NACL 1 250ML.BAG IV SCH (11:42)
[2024-10-06] MEDS: HEPARIN SODIUM 1,000 UN/ML (10ML VL) IV ONE (11:43)
[2024-10-06] MEDS: ASPIRIN 81 MG PO SCH (19:39)
--- NOTE | 2024-10-07 09:37 | P.PN ---
Subjective Progress Note Date: 10/07/24 The patient is a pleasant 89-year-old gentleman who is known to our service from before with a past medical history significant for CAD with prior stenting of the RCA and LAD as well as paroxysmal atrial fibrillation and hypertension and dyslipidemia and history of loop recorder implantation after an episode of syncope. We requested to see the patient in the emergency department for further evaluation of syncope. The patient is extremely poor historian and he is slightly confused and apparently does have mild underlying dementia. He was brought after he has been falling with unknown if there is a change in mental status. No symptoms of chest pain or chest discomfort. No shortness of his with no feeling of heart racing or fluttering. Further evaluation was performed including a chest x-ray came to be overall unremarkable and EKG showing sinus mechanism with nonspecific ST and T wave abnormalities with the first set of troponin came to be mildly abnormal. The patient was seen by our service back in 2022 when he presented with syncope and underwent loop recorder implantation and at that point he underwent an echo which revealed normal LV systolic function with evidence of mild aortic stenosis. On examination today he does have definitely significant systolic murmur at the right upper and left upper sternal border with decrease in the intensity of S2 with clear breathing sounds bilaterally and no edema was noted. He underwent also today a CT scan of the brain which came to be unremarkable October 07, 2024 The patient was seen and evaluated this morning. He does have some change in mental status and he is hemodynamically stable besides marginally low blood pressure. Giving the history of syncope and low blood pressure and the history of aortic stenosis I am going to stop the isosorbide mononitrate. Also I am going to stop the heparin giving that the patient is not a candidate for any invasive procedure at this point including a heart catheterization. The physical examination is remarkable for significant systolic murmur at the right upper sternal border with decrease in the intensity of S2 and diminished breathing sounds bilaterally and no edema was noted Assessment Questionable history of syncope Evidence of myocardial injury with no evidence of ischemia Valvular heart disease with known aortic stenosis Significant systolic murmur on examination Paroxysmal atrial fibrillation Multiple comorbid conditions Change in mental status Plan DC isosorbide mononitrate DC heparin Follow-up with the echocardiogram Objective - Vital Signs Vital signs: Vital Signs Temp 97.9 F 10/07/24 03:54 Pulse 75 10/07/24 03:54 Resp 20 10/07/24 03:54 BP 101/50 10/07/24 03:54 Pulse Ox 93 L 10/07/24 03:54 FiO2 Intake & Output 10/06/24 10/07/24 10/07/24 18:59 06:59 18:59 Intake Total 53.34 44.958 Balance 53.34 44.958 Weight 63.503 kg Intake: Intake, IV Titration 53.34 44.958 Amount Heparin Sod,Pork in 0.45% 53.34 44.958 NaCl 25,000 unit In 0.45 % NaCl 1 250ml.bag @ 12 UNITS/KG/HR 7.62 mls/hr IV .Q24H [facility] Rx#: [id number] Other: Voiding Method Diaper # Voids 1 2 1 - Labs CBC & Chem 7: 10/06/24 07:44 10/06/24 07:44 Labs: Abnormal Lab Results - Last 24 Hours (Table) 10/06/24 10/06/24 10/07/24 Range/Units 10:02 17:28 03:36 APTT 145.8 H* 81.9 H (22.0-30.0) sec Troponin I 0.139 H* (0.000-0.034) ng/mL
[2024-10-07] MEDS: ACETAMINOPHEN TAB 325 MG TAB PO PRN (13:57)
--- NOTE | 2024-10-07 15:09 | P.PN ---
Subjective Progress Note Date: 10/07/24 HISTORY OF PRESENT ILLNESS: This is an 89-year-old male patient of eduardo and Dr. Myers with a past medical history coronary artery disease status post PCI of the LAD and RCA, history of hypertension, hyperlipidemia BPH, neck and back surgeries for degenerative arthritis, patient was hospitalized at [facility] in 05/31/2023 and he was found to have a significant stenosis of the proximal LAD after heart cath physician that was done by Dr. Quintana, he underwent left heart catheterization with PCI of the proximal LAD Xience stent, and he did have a balloon angioplasty for dilatation as well, patient has done well over the last few months, patient was recently hospitalized at [facility] from September 02 August 24 after recurrent falls and not able to ambulate on his own, he was sent to [facility] for physical therapy and rehabilitation, patient had a matter fact was discharged from our yesterday, he went home as the patient did not want to stay over there, on the way home patient was extremely weak, his and his daughter managed to get him to the house, however the patient had a syncopal episode, they thought that he had had a stroke because he was unrespons queta for few minutes, EMS was called and the patient was brought into the emergency department at [facility], had a CT scan of the brain 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, CT of the cervical spine showed significant degenerative disc disease of the cervical spine with extensive surgical changes with hardware intact, chest x-ray was negative, twelve-lead EKG showed normal sinus rhythm with first-degree AV block with Q waves inferiorly 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, x-rays of the pelvis did not show any evidence of any acute fracture, but the patient otherwise did not have any focal neurological deficit, his EKG did not show any evidence of acute ST-T wave changes just sinus rhythm with first-degree AV block and old Q waves in the inferior leads., but because of the presentation he was admitted to the hospital for evaluation by cardiology as well as by neurology, patient was placed on the monitor bed, he will be seen in consultation by physical therapy and Occupational Therapy along with social work msw as the patient I believe not able to be home at this point in time may need to have a placement for 24-hour care. 10/07: Patient sitting up in bed in no apparent distress, he continues to have a raspy voice, he has no appetite, he has not been eating much, he does not feel hungry, he wanted to go home at this time, he is extremely weak, he needed 2 person assist to get up in the bed, physical therapy has not evaluated the patient yet, patient will likely require to go to subacute rehabilitation, patient had an echocardiogram the result of which still pending at the time of dictation, this is likely related to a moderate aortic valve stenosis according to cardiology, we will continue to follow-up with the patient very closely. REVIEW OF SYSTEMS: Constitutional: No documented fever, no chills, no night sweats. No weight change. positive for weakness, fatigue or lethargy. No daytime sleepiness. HEENT: No headache. No blurred vision or double vision, no loss of vision. No loss of Hearing, no ringing in the ears, no dizziness. No nasal drainage or congestion. No epistaxis. No sore throat. Lungs: Positive for shortness of breath, no cough, no sputum production. No wheezing. Reports dyspnea with activity. Cardiovascular: No chest pain, no lower extremity edema. No palpitations. No paroxysmal nocturnal dyspnea. No orthopnea. Positive for lightheadedness, positive for syncope Abdominal: Reports no abdominal pain. positive for nausea, vomiting. No diarrhea. No constipation. No bloody or tarry stools reports loss of appetite. Genitourinary: positive for urinary frequency. Musculoskeletal: No myalgias. Positive for muscle weakness,positive for gait dysfunction, positive for frequent falls, positive for back pain, and neck pain. Positive for loss of balance. Integumentary: No wounds, no lesions. No rash or pruritus. Positive for unusual bruising. No change in hair or nails. Neurologic: No aphasia. No facial droop. No change in mentation. No head injury. No headache. No paralysis. No paresthesia. Psychiatric: positive for depression. No anxiety. positive for mood swings. Endocrine: No abnormal blood sugars. Positive for weight change. PHYSICAL EXAMINATION: General: 89-year-old male lying down in bed in no apparent distress. HEENT: Head is atraumatic, normocephalic, pupils were equal round reactive to light and recommendation, extraocular muscle movement were intact, sclera nonicteric, conjunctivae were pale, mucous membranes of the mouth are somewhat dry. Neck: Supple, no JVP, normal carotid upstroke bilaterally, no lymphadenopathy. Chest: Decreased breath sounds at the bases, few rhonchi, no extremity wheezes, no chest wall tenderness, no intercostal retractions. Heart: First heart sound is normal, second heart sounds normal there is systolic ejection murmur 2/6 located in the left sternal border. Abdomen: Soft, nontender, nondistended, positive bowel sounds. Extremities: There is no edema no calf tenderness DP +2 bilaterally. Neurologic examination: Patient is awake alert and oriented X 3, cranial nerves II-12 appear grossly intact, muscle power were 3 out of 5 in upper extremities and 3 out of 5 in bilateral lower extremities, deep tendon reflexes normal bilaterally. ASSESSMENT AND PLAN: 1. Syncope likely related to moderate aortic valve stenosis. Echocardiogram was done, results are still pending at the time of dictation, follow-up with the patient very closely cardiology is following. 2. Non-ST elevation myocardial infarction. Patient was taken off heparin drip, he was restarted back on Eliquis 2.5 mg orally twice every day, continue patient on aspirin 81 mg once every day, continue atorvastatin 80 mg once every day, monitor lipid panel, keep LDL 55-70 no plan for heart catheterization at this time 3. Paroxysmal atrial fibrillation. Continue patient on Eliquis 2.5 mg orally twice every day for life. 4. History of CAD post-PCI of the LAD and RCA. Last heart catheterization November 2019 showed stable disease. Continue aspirin 81 mg once every day, Lipitor 80 mg once every day, lisinopril 20 mg every day, isosorbide 20 mg orally twice every day. 5. Hypertension and hypertensive cardiovascular disease. Continue lisinopril 20 mg orally once every day monitor the patient blood pressure very closely 6. Mixed hyperlipidemia. Continue Lipitor 80 mg once every day, keep LDL cholesterol 55-70. 7. Enlarged prostate continue Flomax 0.4 mg once every day. 8. Moderate aortic valve stenosis. Echocardiogram was ordered still pending at time of dictation. 9. Prerenal azotemia. Resolved discontinue IV fluid 10. 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 Continue with physical therapy as needed. 11. Chronic diastolic heart failure. Continue patient on lisinopril 20 mg orally once every day, stable at this time 12. DVT prophylaxis. continue Eliquis 2.5 mg orally twice every day 13. GI prophylaxis. Continue Protonix 40 mg orally once every day. 14. Physical therapy evaluation for possible subacute rehabilitation 15. Patient is full code Objective - Vital Signs Vital signs: Vital Signs Temp 98.6 F 10/07/24 08:00 Pulse 65 10/07/24 08:00 Resp 16 10/07/24 08:00 BP 111/63 10/07/24 08:00 Pulse Ox 94 L 10/07/24 08:00 FiO2 Intake & Output 10/06/24 10/07/24 10/07/24 18:59 06:59 18:59 Intake Total 53.34 44.958 Balance 53.34 44.958 Weight 63.503 kg Intake: Intake, IV Titration 53.34 44.958 Amount Heparin Sod,Pork in 0.45% 53.34 44.958 NaCl 25,000 unit In 0.45 % NaCl 1 250ml.bag @ 12 UNITS/KG/HR 7.62 mls/hr IV .Q24H [facility] Rx#: [id number] Other: Voiding Method Diaper Diaper # Voids 1 2 1 - Labs CBC & Chem 7: 10/06/24 07:44 10/06/24 07:44 Labs: Abnormal Lab Results - Last 24 Hours (Table) 10/06/24 10/07/24 Range/Units 17:28 03:36 APTT 145.8 H* 81.9 H (22.0-30.0) sec
--- NOTE | 2024-10-07 16:58 | CA ---
Transthoracic Echo Report Name: Ruiz Bright Age: 89 Gender: M : 1935 Exam Date: 10/07/2024 11:22 Exam Location: [place] [facility] Ht (in): 70 Wt (lb): 140 Ordering Physician: Baron Peñaloza MD ([id number]) Attending/Referring Phys: Helmet Binder Paulina Duvall RDCS Procedure CPT: Indications: hx of aortic stenosis and syncope Cardiac Hx: Technical Quality: Fair Contrast 1: Total Dose (mL): Contrast 2: Total Dose (mL): MEASUREMENTS (Male / Female) Normal Values 2D ECHO LV Diastolic Diameter PLAX 4.7 cm 4.2 - 5.9 / 3.9 - 5.3 cm LV Systolic Diameter PLAX 3.3 cm IVS Diastolic Thickness 1.1 cm 0.6 - 1.0 / 0.6 - 0.9 cm LVPW Diastolic Thickness 1.3 cm 0.6 - 1.0 / 0.6 - 0.9 cm LV Relative Wall Thickness 0.5 RV Internal Dim ED PLAX 3.2 cm LVOT Diameter 2.4 cm LA Systolic Diameter LX 3.6 cm 3.0 - 4.0 / 2.7 - 3.8 cm LV Diastolic Volume MOD BP 84.9 cm??? 67 - 155 / 56 - 104 cm??? LV Systolic Volume MOD BP 32.1 cm??? - 58 / 19 - 49 cm??? LV Ejection Fraction MOD BP 62.2 % >= 55 % LV Cardiac Index MOD BP 2036.1 cm???/min???m??? LV Diastolic Volume MOD 4C 73.7 cm??? LV Systolic Volume MOD 4C 42.0 cm??? LV Ejection Fraction MOD 4C 43.0 % LV Cardiac Index MOD 4C 1221.1 cm???/min???m??? LV Diastolic Length 4C 6.9 cm LV Systolic Length 4C 6.3 cm LV Diastolic Volume MOD 2C 87.0 cm??? LV Systolic Volume MOD 2C 27.1 cm??? LV Ejection Fraction MOD 2C 68.8 % LV Cardiac Index MOD 2C 2306.1 cm???/min???m??? LV Diastolic Length 2C 7.9 cm LV Systolic Length 2C 6.3 cm LA Volume 58.9 cm??? 18 - 58 / 22 - 52 cm??? LA Volume Index 33.4 cm???/m??? 16 - 28 cm???/m??? M-MODE Aortic Root Diameter MM 3.3 cm DOPPLER AV Peak Velocity 234.1 cm/s AV Peak Gradient 21.9 mmHg AV Mean Velocity 148.4 cm/s AV Mean Gradient 10.8 mmHg AV Velocity Time Integral 55.9 cm LVOT Peak Velocity 90.1 cm/s LVOT Peak Gradient 3.2 mmHg LVOT Velocity Time Integral 22.1 cm LVOT Stroke Volume 101.1 cm??? LVOT Stroke Volume Index 56.4 ml/m??? LVOT Cardiac Index 3898.1 cm???/min???m??? AV Area Cont Eq vti 1.8 cm??? AV Area Cont Eq pk 1.8 cm??? MV Area PHT 2.0 cm??? Mitral E Point Velocity 87.8 cm/s Mitral A Point Velocity 132.9 cm/s Mitral E to A Ratio 0.7 MV Deceleration Time 384.8 ms FINDINGS Left Ventricle Left ventricular ejection fraction is estimated at 50-55 %. Left ventricular cavity size normal. Left ventricular wall thickness normal. No obvious regional wall motion abnormalities. Right Ventricle Normal right ventricular size. Unable to estimate the right ventricular systolic pressure. Right Atrium Normal right atrial size. No right atrial thrombus or mass seen. Left Atrium Mildly increased left atrial volume. Mildly increased left atrial area. No left atrial thrombus or mass present. Mitral Valve Structurally normal mitral valve. Mitral annular calcification. No mitral stenosis, regurgitation or prolapse. Aortic Valve Aortic valve sclerosis. Diffuse thickening of the aortic valve cusps with reduced excursion. Mild aortic stenosis with a peak gradient of 22 mmHg and a mean gradient of 11 mmHg. Tricuspid Valve Structurally normal tricuspid valve. No tricuspid regurgitation. Pulmonic Valve Pulmonic valve not well visualized. Pericardium No pericardial effusion. Aorta Normal size aortic root and proximal ascending aorta. CONCLUSIONS Normal LV systolic function Aortic sclerosis with mild aortic stenosis. Overall aortic valve was poorly visualized Technically difficult study for interpretation Previewed by: Dr. Baron Peñaloza MD (Electronically Signed) Final Date: 07 October 2024 16:57
[2024-10-07] MEDS: HYDROcodone/APAP 5-325MG 1 EACH TAB PO SCH (17:29)
[2024-10-07] MEDS: APIXABAN 2.5 MG TABLET PO SCH (20:33)
[2024-10-07] MEDS: HYDROcodone/APAP 5-325MG 1 EACH TAB PO PRN (20:35)
[2024-10-08 07:17] LABS: Basophils % (A) 0 %; Eosinophils % (A) 0 %; HCT 32.4 % (39.0-53.0); HGB 10.8 gm/dL (13.0-17.5); Lymphocytes # (A) 1.3 k/uL (1.0-4.8); Lymphocytes % (A) 11 %; MCH 32.6 pg (25.0-35.0); MCHC 33.5 g/dL (31.0-37.0); MCV 97.2 fL (80.0-100.0); Mean Platelet Volume 7.6; Monocytes # (A) 0.2 k/uL (0-1.0); Monocytes % (A) 2 %; Neutrophils # (A) 10.3 k/uL (1.3-7.7); Neutrophils % (A) 87 %; Platelet Count 179 k/uL (150-450); RBC 3.33 m/uL (4.30-5.90); RDW 13.3 % (11.5-15.5); WBC 11.9 k/uL (3.8-10.6)
[2024-10-08 07:32] LABS: ALT 33 U/L (4-49); AST 70 U/L (17-59); African American GFR (CKD) 76 (>60 ml/min/1.73 sqM); Albumin 2.6 g/dL (3.5-5.0); Alkaline Phosphatase 61 U/L (38-126); Anion Gap 8 mmol/L; Blood Urea Nitrogen 42 mg/dL (9-20); Calcium 7.7 mg/dL (8.4-10.2); Carbon Dioxide 20 mmol/L (22-30); Chloride 103 mmol/L (98-107); Glucose 86 mg/dL (74-99); Non-African American GFR(CKD) 66 (>60 ml/min/1.73 sqM); Potassium 3.8 mmol/L (3.5-5.1); Sodium 131 mmol/L (137-145); Total Protein 4.8 g/dL (6.3-8.2)
--- NOTE | 2024-10-08 09:29 | P.CNNES ---
History of Present Illness Consult date: 10/06/24 Requesting physician: Nino Biggs Reason for Consult: Syncope, weakness History of Present Illness: This is a telemedicine neurology consultation performed today on 10/06/2024, in collaboration with Fe Francsi. Patient is a 89-year-old right-handed male came to the hospital by ambulance yesterday at 1:01 PM for syncopal spell. Patient states that he was walking to the house and passed out. His balance has been off for past 2-3 weeks. Per nurse report, he is confused, incontinence of bowels and bladder. No previous history of strokes or TIA. No tremors. Patient is on Eliquis, does not know the reason. As per EMS flow sheet, apparently EMS called for weakness. When they arrived, patient was laying on his bedroom floor on his right side with his right arm under him. states patient came home from [facility] today and fell twice trying to get into the house. Patient's mentioned that he did not hit his head and he did not lose consciousness. There were no obvious signs of trauma to his head neck or back. Patient was alert and oriented 3. Patient states he wants help up to use the bathroom. Patient denied any pain at this time. He was assisted up and into his wheelchair. Patient was very weak and unsteady. He was taken into the bathroom. Patient then had a 10 to 20 second period of seizure activity. Patient's eyes deviated to the right and started twitching. He was incontinent of stool at that time. After seizure activity stopped, patient was postictal for approximately 1 minute. He denied any pain or headache. Denies dizziness. No previous history of seizures. He is on Eliquis daily. Patient's vitals at the scene was blood pressure 102/67, pulse rate 69 respiration 20, saturation 95% of vision 98.5. Blood glucose 144. Vital signs on arrival blood pressure 105/46 temperature 98.5. Blood test shows normal WBC Hgb 11.4, platelets are normal. PT/PTT normal, sodium 132 potassium 4.8 BUN 35 creatinine 1.0. Hepatic panel is normal troponin mildly elevated 0.047. He UA is negative. EKG showed sinus rhythm with first-degree AV block. Pelvic x-ray showed no fracture. Chest x-ray showed no acute cardiopulmonary disease. CT of the head showed no acute intracranial process. Nonspecific white matter disease, likely secondary to chronic small vessel ischemic disease. I personally reviewed CT head, agree with the findings. There is evidence of an old lacune in the left basal ganglia. CT of the cervical spine showed no evidence of cervical spine fracture. Extensive surgical changes with multilevel degenerative disc disease. Hardware appears intact. Remote left thalamus injury. Patient at present denies any headache, no chest pain or pain anywhere. He has some memory loss for 1 year. He does have a vocal and a cane, and uses walker for the last < 1 year. Patient states that he was getting into the house which has one step, he was not using his walker as he was going through the door. This is when he fell. He does have suffered from falls about 2 or 3 times. No history of tremors, no history of stroke. Home medications include aspirin 81 mg, Eliquis 5 mg daily, Lipitor 80 mg, isosorbide, Flomax, potassium, Lexapro 20 mg, Lasix 20 mg, lisinopril 20 mg, Zofran when necessary. Review of Systems All pertinent positive and negative review of systems mentioned in the HPI. Otherwise unremarkable. Past Medical History Past Medical History: Hyperlipidemia, Hypertension, Myocardial Infarction ([place]), Osteoarthritis (OA), Pneumonia, Prostate Disorder Additional Past Medical History / Comment(s): enlarged prostate-currently has march catheter, has some balance issue-uses walker when outside home, sinus problems Last Myocardial Infarction Date:: 1993 History of Any Multi-Drug Resistant Organisms: None Reported Past Surgical History: Back Surgery, Heart Catheterization, Heart Catheterization With Stent, Tonsillectomy Additional Past Surgical History / Comment(s): 2 Neck surgery, STATES HAS "P LASTIC" IN NECK, METAL IN BACK, STENT IN HEART X2, NORTH CATARACTS Past Anesthesia/Blood Transfusion Reactions: No Reported Reaction Additional Past Anesthesia/Blood Transfusion Reaction / Comment(s): no hx blood transfusion Date of Last Stent Placement:: 2022 Past Psychological History: No Psychological Hx Reported Smoking Status: Former smoker Past Alcohol Use History: None Reported Past Drug Use History: None Reported - Past Family History Father History Unknown: Yes Family Medical History: Myocardial Infarction ([place]) Additional Family Medical History / Comment(s): Several mi's- with major [place] Mother History Unknown: Yes Family Medical History: CVA/TIA Daughter(s) History Unknown: Yes Family Medical History: Diabetes Mellitus Medications and Allergies Home Medications Medication Instructions Recorded Confirmed Type Isosorbide Mononitrate [Ismo] 20 mg PO BID-W/MEALS 03/25/14 10/05/24 History Atorvastatin Calcium [Lipitor] 80 mg PO DAILY 08/12/18 10/05/24 History Tamsulosin [Flomax] 0.4 mg PO DAILY 12/07/19 10/05/24 History Aspirin EC [Ecotrin Low Dose] 81 mg PO HS 06/12/21 10/05/24 History Potassium Chloride [Klor-Con M20] 20 meq PO DAILY 09/15/23 10/05/24 History Apixaban [Eliquis] 5 mg PO DAILY 10/17/23 10/05/24 History Escitalopram [Lexapro] 20 mg PO DAILY 08/20/24 10/05/24 History Furosemide [Lasix] 20 mg PO DAILY 08/20/24 10/05/24 History lisinopriL [Zestril] 20 mg PO DAILY 08/20/24 10/05/24 History Acetaminophen Tab [Tylenol] 650 mg PO Q6H PRN 10/05/24 10/05/24 History Nitroglycerin Sl Tabs [Nitrostat] 0.4 mg SUBLINGUAL Q5M PRN 10/05/24 10/05/24 History Ondansetron [Zofran] 4 mg PO Q6H PRN 10/05/24 10/05/24 History Sennosides [Senokot] 8.6 mg PO BID-W/MEALS 10/05/24 10/05/24 History polyethylene glycoL 3350 [Miralax] 17 gm PO DAILY PRN 10/05/24 10/05/24 History Allergies Allergy/AdvReac Type Severity Reaction Status Date / Time adhesive tape AdvReac pulls skin Verified 10/05/24 15:07 off adhesive dressings AdvReac pulls skin Uncoded 10/05/24 13:48 off Physical Examination - Vital Signs Vital Signs: Vital Signs Temp Pulse Resp BP Pulse Ox 10/06/24 07:17 71 16 136/66 95 10/06/24 05:45 66 18 150/60 97 10/05/24 19:45 85 16 135/62 93 L 10/05/24 13:13 98.5 F 82 16 105/46 97 Patient is an elderly male, in no acute distress. Patient is alert awake, somewhat confused. Patient lives with his and his daughter. Patient states is the month of August, could not tell the year. He could not tell what city he lives in althoughhe is in [place]. He could not tell what building he is in, although on given prompts, was able to tell it is a hospital but does not know the name. He could not tell name of the current president although when giving multiple options, said Lux "could be". He states he is 82 years old (actually 89). He knows his date of 1935. Speech and language functions are normal. Patient can name and repeat very well. No aphasia or dysarthria. Attention, concentration and fund of knowledge is adequate. On cranial nerve examination, pupils are equal, round 2-3 mm, not very clearly reacting to light, visual tom are full on confrontation, with no neglect on d ouble simultaneous stimulation. Extraocular muscles are intact with no nystagmus. Face is symmetric, tongue protrudes to the midline. Palatal elevation and sensation normal, hearing and shoulder shrug normal, facial sensation normal. On muscle strength testing, there is no pronator drift and the strength is normal in arms and legs distally and proximally. Deep tendon reflexes are symmetric around 2 all over. Sensory to touch is equal with no neglect on double simultaneous stimulation. Cerebellar function showed no ataxia for [id number] testing. No dysdiadochokinesia. No ataxia for [id number] testing on either side. Tone and bulk of muscles normal. Finger tapping is normal. Gait deferred.. On general examination, there is no carotid bruit or murmur, S1-S2 audible. Chest is clear on consultation. Abdomen is soft nontender. No organomegaly, bowel sounds present. Peripheral pulses are present. No peripheral edema. Results - Laboratory Findings CBC and BMP: 10/08/24 05:25 10/08/24 05:25 Abnormal Lab Findings: Abnormal Labs 10/05/24 10/05/24 10/05/24 13:50 13:50 13:50 RBC 3.55 L Hgb 11.4 L Hct 34.4 L Neutrophils # 8.1 H Sodium 132 L Carbon Dioxide 21 L BUN 35 H Glucose 119 H Creatine Kinase Troponin I 0.047 H* Total Protein 5.9 L Albumin 3.4 L Urine Mucus 10/05/24 10/05/24 22:46 22:46 RBC Hgb Hct Neutrophils # Sodium Carbon Dioxide BUN Glucose Creatine Kinase 325 H Troponin I Total Protein Albumin Urine Mucus Rare H Assessment and Plan Assessment: * Syncope versus seizure * Elevated cardiac enzyme * Memory loss, rule out dementia, delirium * Hyponatremia Plan: * We will check carotid Doppler. * 2-D echo * EEG * Patient is on Eliquis, but does not know the reason. He is also on Eliquis 5 mg once a day which is subtle optimal dose. * We will try to talk to his family to get collateral history. * B12 764, folate 26.8. * Hemoglobin A1c 5.8, TSH 1.13. * Treatment of other medical conditions as per IM. * Neurology will follow. Thank you for the consult. Time with Patient: Greater than 30
--- NOTE | 2024-10-08 09:40 | P.PN ---
Subjective Progress Note Date: 10/08/24 HISTORY OF PRESENT ILLNESS: This is an 89-year-old male patient of eduardo and Dr. Myers with a past medical history coronary artery disease status post PCI of the LAD and RCA, history of hypertension, hyperlipidemia BPH, neck and back surgeries for degenerative arthritis, patient was hospitalized at [facility] in 05/31/2023 and he was found to have a significant stenosis of the proximal LAD after heart cath physician that was done by Dr. Quintana, he underwent left heart catheterization with PCI of the proximal LAD Xience stent, and he did have a balloon angioplasty for dilatation as well, patient has done well over the last few months, patient was recently hospitalized at [facility] from September 02 August 24 after recurrent falls and not able to ambulate on his own, he was sent to [facility] for physical therapy and rehabilitation, patient had a matter fact was discharged from our yesterday, he went home as the patient did not want to stay over there, on the way home patient was extremely weak, his and his daughter managed to get him to the house, however the patient had a syncopal episode, they thought that he had had a stroke because he was unrespons queta for few minutes, EMS was called and the patient was brought into the emergency department at [facility], had a CT scan of the brain 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, CT of the cervical spine showed significant degenerative disc disease of the cervical spine with extensive surgical changes with hardware intact, chest x-ray was negative, twelve-lead EKG showed normal sinus rhythm with first-degree AV block with Q waves inferiorly suggestive of old CT, x-rays of the pelvis did not show any evidence of any acute fracture, but the patient otherwise did not have any focal neurological deficit, his EKG did not show any evidence of acute ST-T wave changes just sinus rhythm with first-degree AV block and old Q waves in the inferior leads., but because of the presentation he was admitted to the hospital for evaluation by cardiology as well as by neurology, patient was placed on the monitor bed, he will be seen in consultation by physical therapy and Occupational Therapy along with vp digital marketing social media and crm as the patient I believe not able to be home at this point in time may need to have a placement for 24-hour care. 10/07: Patient sitting up in bed in no apparent distress, he continues to have a raspy voice, he has no appetite, he has not been eating much, he does not feel hungry, he wanted to go home at this time, he is extremely weak, he needed 2 person assist to get up in the bed, physical therapy has not evaluated the patient yet, patient will likely require to go to subacute rehabilitation, patient had an echocardiogram the result of which still pending at the time of dictation, this is likely related to a moderate aortic valve stenosis according to cardiology, we will continue to follow-up with the patient very closely. 10/08: Patient is complaining of increased dry cough minimal phlegm production, his oxygenation dropped to 88 to 89% on room air, he was placed on 2 L nasal cannula, we will obtain portable chest x-ray for evaluation of possible left lo wer lobe pneumonia, I will start the patient on IV antibiotic in the form of Zosyn 3.375 g piggyback every 8 hours, physical therapy to evaluate the patient because the patient is extremely weak at this point, for the patient to be able to get into subacute rehabilitation at this point in time. I will start the patient on nebulized treatment in the form of DuoNeb 3 mL nebulization 4 times every day as well. REVIEW OF SYSTEMS: Constitutional: No documented fever, no chills, no night sweats. No weight change. positive for weakness, fatigue or lethargy. No daytime sleepiness. HEENT: No headache. No blurred vision or double vision, no loss of vision. No loss of Hearing, no ringing in the ears, no dizziness. No nasal drainage or congestion. No epistaxis. No sore throat. Lungs: Positive for shortness of breath, no cough, no sputum production. No wheezing. Reports dyspnea with activity. Cardiovascular: No chest pain, no lower extremity edema. No palpitations. No paroxysmal nocturnal dyspnea. No orthopnea. Positive for lightheadedness, positive for syncope Abdominal: Reports no abdominal pain. positive for nausea, vomiting. No diarrhea. No constipation. No bloody or tarry stools reports loss of appetite. Genitourinary: positive for urinary frequency. Musculoskeletal: No myalgias. Positive for muscle weakness,positive for gait dysfunction, positive for frequent falls, positive for back pain, and neck pain. Positive for loss of balance. Integumentary: No wounds, no lesions. No rash or pruritus. Positive for unusual bruising. No change in hair or nails. Neurologic: No aphasia. No facial droop. No change in mentation. No head injury. No headache. No paralysis. No paresthesia. Psychiatric: positive for depression. No anxiety. positive for mood swings. Endocrine: No abnormal blood sugars. Positive for weight change. PHYSICAL EXAMINATION: General: 89-year-old male sitting up in bed in minimal respiratory distress. HEENT: Head is atraumatic, normocephalic, pupils were equal round reactive to light and recommendation, extraocular muscle movement were intact, sclera nonicteric, conjunctivae were pale, mucous membranes of the mouth are somewhat dry. Neck: Supple, no JVP, normal carotid upstroke bilaterally, no lymphadenopathy. Chest: Decreased breath sounds at the bases, few rhonchi at the left base no expiratory wheezes, no chest wall tenderness, no intercostal retractions. Heart: First heart sound is normal, second heart sounds normal there is systolic ejection murmur 2/6 located in the left sternal border. Abdomen: Soft, nontender, nondistended, positive bowel sounds. Extremities: There is no edema no calf tenderness DP +2 bilaterally. Neurologic examination: Patient is awake alert and oriented X 3, cranial nerves II-12 appear grossly intact, muscle power were 3 out of 5 in upper extremities and 3 out of 5 in bilateral lower extremities, deep tendon reflexes normal bilaterally. ASSESSMENT AND PLAN: 1. Syncope likely related to mild to moderate aortic valve stenosis. Echocardiogram was done, results are still pending at the time of dictation, follow-up with the patient very closely cardiology is following. 2. Non-ST elevation myocardial infarction. Patient was taken off heparin drip, he was restarted back on Eliquis 2.5 mg orally twice every day, continue patient on aspirin 81 mg once every day, continue atorvastatin 80 mg once every day, monitor lipid panel, keep LDL 55-70 no plan for heart catheterization at this time 3. Paroxysmal atrial fibrillation. Continue patient on Eliquis 2.5 mg orally twice every day for life. 4. History of CAD post-PCI of the LAD and RCA. Last heart catheterization November 2019 showed stable disease. Continue aspirin 81 mg once every day, Lipitor 80 mg once every day, lisinopril 20 mg every day, isosorbide 20 mg orally twice every day. 5. Hypertension and hypertensive cardiovascular disease. Continue lisinopril 20 mg orally once every day monitor the patient blood pressure very closely 6. Mixed hyperlipidemia. Continue Lipitor 80 mg once every day, keep LDL cholesterol 55-70. 7. Enlarged prostate continue Flomax 0.4 mg once every day. 8. Mild to moderate aortic valve stenosis. Echocardiogram was ordered still pending at time of dictation. 9. Prerenal azotemia. Resolved discontinue IV fluid 10. 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 Continue with physical therapy as needed. 11. Chronic diastolic heart failure. Continue patient on lisinopril 20 mg orally once every day, stable at this time 12. DVT prophylaxis. continue Eliquis 2.5 mg orally twice every day 13. GI prophylaxis. Continue Protonix 40 mg orally once every day. 14. Physical therapy evaluation for possible subacute rehabilitation 15. Acute hypoxemic respiratory failure start the patient on oxygen 2 L nasal cannula, start the patient on Zosyn 3.375 g IVPB Every 8 hours, portable chest x-ray, start the patient on DuoNeb 3 mL nebulization 4 times every day, follow- up with the patient very closely, swab came back positive for influenza A will start the patient on Tamiflu 75 mg orally twice every day for 5 days. His GFR is good. Objective - Vital Signs Vital signs: Vital Signs Temp 98.6 F 10/08/24 03:52 Pulse 68 10/08/24 03:52 Resp 16 10/08/24 03:52 BP 148/54 10/08/24 03:52 Pulse Ox 90 L 10/08/24 03:52 FiO2 Intake & Output 10/07/24 10/08/24 10/08/24 18:59 06:59 18:59 Output Total 250 Balance -250 Weight 65.5 kg Output: Urine 250 Other: Voiding Method Diaper Diaper # Voids 1 1 # Bowel Movements 1 - Labs CBC & Chem 7: 10/08/24 05:25 10/08/24 05:25 Labs: Abnormal Lab Results - Last 24 Hours (Table) 10/08/24 Range/Units 05:25 WBC 11.9 H (3.8-10.6) k/uL RBC 3.33 L (4.30-5.90) m/uL Hgb 10.8 L (13.0-17.5) gm/dL Hct 32.4 L (39.0-53.0) % Neutrophils # 10.3 H (1.3-7.7) k/uL
[2024-10-08] MEDS ORDERED: IPRATROPIUM-ALBUTEROL 3 ML NEB INHALATION PRN (09:41)
--- NOTE | 2024-10-08 09:46 | XR ---
EXAMINATION TYPE: XR chest 1V portable DATE OF EXAM: 10/08/2024 CLINICAL INDICATION: Male, 89 years old with history of SOB, progress study. TECHNIQUE: Single AP portable upright view of the chest is obtained. COMPARISON: Chest x-ray from 3 days earlier FINDINGS: Reticular increased markings bilaterally are redemonstrated. There is more prominent left basilar opacity on current study. Cardiac silhouette size is stable and upper limits of normal. Overl janis loop recorder redemonstrated. Surgical change of the cervical spine and thoracolumbar spine part ially imaged similar prior. IMPRESSION: New left basilar acute infiltrate and/or atelectasis [facility], , 10/08/2024 9:43 AM
[2024-10-08] MEDS: PIPERACILLIN-TAZOBACTAM 3.375 GM in SODIUM CHLORIDE 0.9% 100 ML IVPB STA (10:32)
--- NOTE | 2024-10-08 11:25 | P.GSCN ---
History of Present Illness Consult date: 10/08/24 Reason for Consult: Carotid stenosis Requesting physician: Nayeli Michel History of present illness: This is a very pleasant 89-year-old male who was brought in by EMS to be evaluated in the emergency department on 10/05/2024 with concerns of altered mental status changes, weakness and loss of consciousness. Apparently patient had been recently hospitalized here at [facility] from August 24 through the after recurrent falls and was discharged to [facility] for physical therapy. Apparently he had gone home the day he was brought in and family was present and able to get him into the home however following that it was reported that he had a syncopal episode and concerns patient may have had a stroke and was brought into the EMS according to patient's records. Patient currently states he does not recall any of the episode. He has a past medical history including coronary artery disease status post PCI of the LAD and RCA, aortic valve stenosis, hypertension, hyperlipidemia, BPH, neck and back becker rgeries, and atrial fibrillation on Eliquis. He was noted to have elevated troponins on admission was initially started on IV heparin drip, cardiology was consulted and reported evidence of myocardial injury with no evidence of ischemia with questionable history of syncope. Heparin drip has since been discontinued. He had further evaluation cervical spine and head CT. There was no acute findings in the head CT however there was a remote left thalamus injury. He denies any previous history of known stroke and no history of carotid disease that he was aware of. He had a carotid duplex reporting moderate internal carotid artery stenosis bilaterally and vascular surgery was consulted. Patient denies any focal deficits. He is alert and oriented x 3. Also undergoing EEG. Review of Systems A 14 point review systems was completed all pertinent positives and negatives as stated in the HPI. Past Medical History Past Medical History: Hyperlipidemia, Hypertension, Myocardial Infarction (OK), Osteoarthritis (OA), Pneumonia, Prostate Disorder Additional Past Medical History / Comment(s): enlarged prostate-currently has march catheter, has some balance issue-uses walker when outside home, sinus problems Last Myocardial Infarction Date:: 1993 History of Any Multi-Drug Resistant Organisms: None Reported Past Surgical History: Back Surgery, Heart Catheterization, Heart Catheterization With Stent, Tonsillectomy Additional Past Surgical History / Comment(s): 2 Neck surgery, STATES HAS "PLASTIC" IN NECK, METAL IN BACK, STENT IN HEART X2, NORTH CATARACTS Past Anesthesia/Blood Transfusion Reactions: No Reported Reaction Additional Past Anesthesia/Blood Transfusion Reaction / Comm: no hx blood transfusion Date of Last Stent Placement:: 2022 Past Psychological History: No Psychological Hx Reported Smoking Status: Former smoker Past Alcohol Use History: None Reported Past Drug Use History: None Reported - Past Family History Father History Unknown: Yes Family Medical History: Myocardial Infarction (OK) Additional Family Medical History / Comment(s): Several mi's- with major OK Mother History Unknown: Yes Family Medical History: CVA/TIA Daughter(s) History Unknown: Yes Family Medical History: Diabetes Mellitus Medications and Allergies Home Medications Medication Instructions Recorded Confirmed Type Isosorbide Mononitrate [Ismo] 20 mg PO BID-W/MEALS 03/25/14 10/05/24 History Atorvastatin Calcium [Lipitor] 80 mg PO DAILY 08/12/18 10/05/24 History Tamsulosin [Flomax] 0.4 mg PO DAILY 12/07/19 10/05/24 History Aspirin EC [Ecotrin Low Dose] 81 mg PO HS 06/12/21 10/05/24 History Potassium Chloride [Klor-Con M20] 20 meq PO DAILY 09/15/23 10/05/24 History Apixaban [Eliquis] 5 mg PO DAILY 10/17/23 10/05/24 History Escitalopram [Lexapro] 20 mg PO DAILY 08/20/24 10/05/24 History Furosemide [Lasix] 20 mg PO DAILY 08/20/24 10/05/24 History lisinopriL [Zestril] 20 mg PO DAILY 08/20/24 10/05/24 History Acetaminophen Tab [Tylenol] 650 mg PO Q6H PRN 10/05/24 10/05/24 History Nitroglycerin Sl Tabs [Nitrostat] 0.4 mg SUBLINGUAL Q5M PRN 10/05/24 10/05/24 History Ondansetron [Zofran] 4 mg PO Q6H PRN 10/05/24 10/05/24 History Sennosides [Senokot] 8.6 mg PO BID-W/MEALS 10/05/24 10/05/24 History polyethylene glycoL 3350 [Miralax] 17 gm PO DAILY PRN 10/05/24 10/05/24 History Allergies Allergy/AdvReac Type Severity Reaction Status Date / Time adhesive tape AdvReac pulls skin Verified 10/05/24 15:07 off adhesive dressings AdvReac pulls skin Uncoded 10/05/24 13:48 off Surgical - Exam Vital Signs Temp Pulse Resp BP Pulse Ox 98.5 F 82 16 105/46 97 10/05/24 13:13 10/05/24 13:13 10/05/24 13:13 10/05/24 13:13 10/05/24 13:13 General appearance: The patient is alert, oriented, appears in no acute distress. HET: Head is normocephalic and atraumatic. Pupils are equal and reactive. Neck: Supple. No audible carotid bruit. Heart: Regular. Lungs: Equal expansion, normal respiratory effort. Abdomen: Soft, nontender, nondistended. Extremities: Normal skin color and turgor. Neurological: No focal deficits. Patient with facial symmetry, speech is clear, answers questions appropriately, strength and sensation are grossly intact. Results - Labs 10/08/24 05:25 10/08/24 05:25 Abnormal Lab Results - Last 24 Hours (Table) 10/08/24 10/08/24 Range/Units 05:25 05:25 WBC 11.9 H (3.8-10.6) k/uL RBC 3.33 L (4.30-5.90) m/uL Hgb 10.8 L (13.0-17.5) gm/dL Hct 32.4 L (39.0-53.0) % Neutrophils # 10.3 H (1.3-7.7) k/uL Sodium 131 L (137-145) mmol/L Carbon Dioxide 20 L (22-30) mmol/L BUN 42 H (9-20) mg/dL Calcium 7.7 L (8.4-10.2) mg/dL AST 70 H (17-59) U/L Total Protein 4.8 L (6.3-8.2) g/dL Albumin 2.6 L (3.5-5.0) g/dL Diabetes panel 10/08/24 Range/Units 05:25 Sodium 131 L (137-145) mmol/L Potassium 3.8 (3.5-5.1) mmol/L Chloride 103 (98-107) mmol/L Carbon Dioxide 20 L (22-30) mmol/L BUN 42 H (9-20) mg/dL Creatinine 1.02 (0.66-1.25) mg/dL Glucose 86 (74-99) mg/dL Calcium 7.7 L (8.4-10.2) mg/dL AST 70 H (17-59) U/L ALT 33 (4-49) U/L Alkaline Phosphatase 61 (38-126) U/L Total Protein 4.8 L (6.3-8.2) g/dL Albumin 2.6 L (3.5-5.0) g/dL Calcium panel 10/08/24 Range/Units 05:25 Calcium 7.7 L (8.4-10.2) mg/dL Albumin 2.6 L (3.5-5.0) g/dL Pituitary panel 10/08/24 Range/Units 05:25 Sodium 131 L (137-145) mmol/L Potassium 3.8 (3.5-5.1) mmol/L Chloride 103 (98-107) mmol/L Carbon Dioxide 20 L (22-30) mmol/L BUN 42 H (9-20) mg/dL Creatinine 1.02 (0.66-1.25) mg/dL Glucose 86 (74-99) mg/dL Calcium 7.7 L (8.4-10.2) mg/dL Adrenal panel 10/08/24 Range/Units 05:25 Sodium 131 L (137-145) mmol/L Potassium 3.8 (3.5-5.1) mmol/L Chloride 103 (98-107) mmol/L Carbon Dioxide 20 L (22-30) mmol/L BUN 42 H (9-20) mg/dL Creatinine 1.02 (0.66-1.25) mg/dL Glucose 86 (74-99) mg/dL Calcium 7.7 L (8.4-10.2) mg/dL Total Bilirubin 1.0 (0.2-1.3) mg/dL AST 70 H (17-59) U/L ALT 33 (4-49) U/L Alkaline Phosphatase 61 (38-126) U/L Total Protein 4.8 L (6.3-8.2) g/dL Albumin 2.6 L (3.5-5.0) g/dL - Imaging Comments: Carotid ultrasound: Right ICA PSV 185, ICA/CCA ratio 2.2 Left ICA PSV 170, ICA/CCA ratio 2.5 Impression reads moderate calcified plaque in the carotid bifurcations and proximal internal carotid arteries. Moderate bilateral stenosis of the proximal internal carotid arteries based on peak systolic velocities and ratios as well as color and grayscale imaging. CT brain and C-spine without contrast reports no acute intracranial process. Nonspecific white matter changes likely secondary to chronic small vessel ischemic disease. No evidence of cervical spine fracture. Extensive surgical changes with multilevel degenerative disc disease. Hardware appears intact. Remote left thalamus injury. Echocardiogram reports normal LV systolic function. Aortic sclerosis with mild aortic stenosis. Overall aortic valve was poorly visualized Assessment and Plan Assessment: 1. Asymptomatic bilateral internal carotid artery stenosis 50 to 69% 2. Possible syncopal episode with loss of consciousness and incontinence 3. NSTEMI 4. Generalized weakness 5. Coronary artery disease 6. History of atrial fibrillation 7. Hypertension 8. Hyperlipidemia Plan: 1. No indication for any vascular surgical intervention at this time 2. Continue with recommendations from cardiology and neurology 3. Discussed with patient findings of carotid duplex, recommend outpatient follow-up for carotid surveillance 4. Rest of medical management per primary medical team Thank you for this consultation, we will sign off at this time. The impression and plan of care has been dictated as directed. Dr. Shields I performed a history and examination of this patient, discussed the same with the dictator. I agree with the dictator's note ,documented as a scribe. Any additional findings or plans will be noted.
[2024-10-08] MEDS: SODIUM CHLORIDE 0.9% 500 ML 500 ML IV ONE (12:01)
[2024-10-08 12:30] LABS: Influenza A Detected (Not Detectd); Influenza B Not Detected (Not Detectd); RSV Not Detected (Not Detectd)
[2024-10-08] MEDS: MAGNESIUM SULFATE-D5W PMX 1 GM in DEXTROSE/WATER 1 100ML.BAG IVPB SCH (12:56)
[2024-10-08] MEDS: DILTIAZEM 125 MG in SODIUM CHLORIDE 0.9% 100 ML IV SCH (13:06)
[2024-10-08] MEDS: OSELTAMIVIR 30 MG CAP PO SCH (14:27)
[2024-10-08] MEDS: PIPERACILLIN-TAZOBACTAM 3.375 GM in SODIUM CHLORIDE 0.9% 100 ML IVPB SCH (17:35)
--- NOTE | 2024-10-09 00:22 | EEG ---
ELECTROENCEPHALOGRAM REPORT PREAMBLE: This is an 89-year-old male with syncope versus seizures. The patient had an episode of unresponsiveness. EEG FINDINGS: This is a 22-channel digital EEG recorded with video component, utilizing 10/20 international system with referential and bipolar montages. Background consists of well developed, and well regulated, mixed frequencies of 8 to 9 hertz alpha, intermixed with some theta activity in bihemispheric region. Background is posterior dominant, and does not seem to be very clearly reactive to eye opening or closing. Photic driving response was not seen. Drowsiness was seen with appearance of bilaterally symmetric theta frequency rhythm, but deeper stages of sleep were not clearly seen. No focal or generalized epileptiform activity was seen. IMPRESSION: This is an abnormal EEG due to background slowing, suggestive of mild encephalopathy. No focal, lateralized, or epileptiform activity was seen. MMBRIAN / IRASEMA: [id number] /
--- NOTE | 2024-10-09 10:11 | P.PN ---
Subjective Progress Note Date: 10/09/24 Principal diagnosis: Carotid stenosis Patient seen today as a follow-up. He denies any focal deficits. Patient started having cough yesterday, he was tested for influenza and was positive for influenza A. Neurology following, EEG shows abnormal EEG due to background slowing, suggestive of mild encephalopathy. No focal, lateralized or elliptic form activity seen. Patient states he has overall weakness, he has not been up to ambulate. Physical therapy has not come to see him yet. Objective - Vital Signs Vital signs: Vital Signs Temp 98.0 F 10/09/24 07:35 Pulse 85 10/09/24 07:35 Resp 17 10/09/24 07:35 BP 122/66 10/09/24 07:35 Pulse Ox 93 L 10/09/24 07:35 FiO2 Intake & Output 10/08/24 10/09/24 10/09/24 18:59 06:59 18:59 Intake Total 240 36.958 Output Total 1300 0 Balance -1060 36.958 Weight 66 kg Intake: Intake, IV Titration 36.958 Amount Diltiazem 125 mg In 36.958 Sodium Chloride 0.9% 100 ml @ 5 MG/HR 5 mls/hr IV .Q24H [facility] Rx#:[id number] Oral 240 Output: Urine 1300 0 Straight 1300 Other: Voiding Method Diaper Diaper External Catheter # Voids 0 - Exam General appearance: The patient is alert, oriented, appears in no acute distress. HET: Head is normocephalic and atraumatic. Pupils are equal and reactive. Neck: Supple. No carotid bruit. Heart: Regular. Lungs: Equal expansion, normal respiratory effort. Abdomen: Soft, nondistended. Extremities: Normal skin color and turgor. Palpable radial pulses. Neurological: No focal deficits. - Labs CBC & Chem 7: 10/08/24 05:25 10/08/24 05:25 Labs: Abnormal Lab Results - Last 24 Hours (Table) 10/08/24 Range/Units 11:37 Influenza Type A (PCR) Detected A (Not Detectd) Assessment and Plan Assessment: 1. Asymptomatic bilateral internal carotid artery stenosis 50 to 69% 2. Possible syncopal episode with loss of consciousness and incontinence 3. NSTEMI 4. Generalized weakness 5. Influenza A 6. Coronary artery disease 7. History of atrial fibrillation 8. Hypertension 9. Hyperlipidemia Plan: 1. No indication for any vascular surgical intervention at this time 2. Continue with recommendations from cardiology and neurology 3. Discussed with patient findings of carotid duplex, recommend outpatient follow-up for carotid surveillance 4. Rest of medical management per primary medical team Thank you for this consultation, we will sign off at this time. The impression and plan of care has been dictated as directed. Dr. Shields I performed a history and examination of this patient, discussed the same with the dictator. I agree with the dictator's note ,documented as a scribe. Any additional findings or plans will be noted.
--- NOTE | 2024-10-09 10:39 | P.PN ---
Subjective Progress Note Date: 10/09/24 HISTORY OF PRESENT ILLNESS: This is an 89-year-old male patient of eduardo and Dr. Myers with a past medical history coronary artery disease status post PCI of the LAD and RCA, history of hypertension, hyperlipidemia BPH, neck and back surgeries for degenerative arthritis, patient was hospitalized at [facility] in 05/31/2023 and he was found to have a significant stenosis of the proximal LAD after heart cath physician that was done by Dr. Quintana, he underwent left heart catheterization with PCI of the proximal LAD Xience stent, and he did have a balloon angioplasty for dilatation as well, patient has done well over the last few months, patient was recently hospitalized at [facility] from September 02 August 24 after recurrent falls and not able to ambulate on his own, he was sent to [facility] for physical therapy and rehabilitation, patient had a matter fact was discharged from our yesterday, he went home as the patient did not want to stay over there, on the way home patient was extremely weak, his and his daughter managed to get him to the house, however the patient had a syncopal episode, they thought that he had had a stroke because he was unrespons queta for few minutes, EMS was called and the patient was brought into the emergency department at [facility], had a CT scan of the brain 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, CT of the cervical spine showed significant degenerative disc disease of the cervical spine with extensive surgical changes with hardware intact, chest x-ray was negative, twelve-lead EKG showed normal sinus rhythm with first-degree AV block with Q waves inferiorly suggestive of old PR, x-rays of the pelvis did not show any evidence of any acute fracture, but the patient otherwise did not have any focal neurological deficit, his EKG did not show any evidence of acute ST-T wave changes just sinus rhythm with first-degree AV block and old Q waves in the inferior leads., but because of the presentation he was admitted to the hospital for evaluation by cardiology as well as by neurology, patient was placed on the monitor bed, he will be seen in consultation by physical therapy and Occupational Therapy along with director of social media marketing as the patient I believe not able to be home at this point in time may need to have a placement for 24-hour care. 10/07: Patient sitting up in bed in no apparent distress, he continues to have a raspy voice, he has no appetite, he has not been eating much, he does not feel hungry, he wanted to go home at this time, he is extremely weak, he needed 2 person assist to get up in the bed, physical therapy has not evaluated the patient yet, patient will likely require to go to subacute rehabilitation, patient had an echocardiogram the result of which still pending at the time of dictation, this is likely related to a moderate aortic valve stenosis according to cardiology, we will continue to follow-up with the patient very closely. 10/08: Patient is complaining of increased dry cough minimal phlegm production, his oxygenation dropped to 88 to 89% on room air, he was placed on 2 L nasal cannula, we will obtain portable chest x-ray for evaluation of possible left lo wer lobe pneumonia, I will start the patient on IV antibiotic in the form of Zosyn 3.375 g piggyback every 8 hours, physical therapy to evaluate the patient because the patient is extremely weak at this point, for the patient to be able to get into subacute rehabilitation at this point in time. I will start the patient on nebulized treatment in the form of DuoNeb 3 mL nebulization 4 times every day as well. 10/09: Patient is sitting up in bed he came plaints of increased pain in the right buttock area rating to the right lower extremity, is not able to lift his right leg off the bed, he is not able to ambulate even using the walker, physical therapy to continue work with the patient at this time, patient is tested positive for influenza A, he was started on Zosyn as well as Tamiflu yesterday, continue to follow-up with the patient very closely, he had an episode of atrial fibrillation yesterday he was started on Cardizem drip at 5 mg an hour then he was taken off of it because of bradycardia, follow-up with the patient very closely his current heart rate is about 66, underlying atrial fibrillation REVIEW OF SYSTEMS: Constitutional: No documented fever, no chills, no night sweats. No weight change. positive for weakness, fatigue or lethargy. No daytime sleepiness. HEENT: No headache. No blurred vision or double vision, no loss of vision. No loss of Hearing, no ringing in the ears, no dizziness. No nasal drainage or congestion. No epistaxis. No sore throat. Lungs: Positive for shortness of breath, no cough, no sputum production. No wheezing. Reports dyspnea with activity. Cardiovascular: No chest pain, no lower extremity edema. No palpitations. No paroxysmal nocturnal dyspnea. No orthopnea. Positive for lightheadedness, positive for syncope Abdominal: Reports no abdominal pain. positive for nausea, vomiting. No diarrhea. No constipation. No bloody or tarry stools reports loss of appetite. Genitourinary: positive for urinary frequency. Musculoskeletal: No myalgias. Positive for muscle weakness,positive for gait dysfunction, positive for frequent falls, positive for back pain, and neck pain. Positive for loss of balance. Integumentary: No wounds, no lesions. No rash or pruritus. Positive for unusual bruising. No change in hair or nails. Neurologic: No aphasia. No facial droop. No change in mentation. No head injury. No headache. No paralysis. No paresthesia. Psychiatric: positive for depression. No anxiety. positive for mood swings. Endocrine: No abnormal blood sugars. Positive for weight change. PHYSICAL EXAMINATION: General: 89-year-old male sitting up in bed in minimal respiratory distress. HEENT: Head is atraumatic, normocephalic, pupils were equal round reactive to light and recommendation, extraocular muscle movement were intact, sclera nonicteric, conjunctivae were pale, mucous membranes of the mouth are somewhat dry. Neck: Supple, no JVP, normal carotid upstroke bilaterally, no lymphadenopathy. Chest: Decreased breath sounds at the bases, few rhonchi at the left base no expiratory wheezes, no chest wall tenderness, no intercostal retractions. Heart: First heart sound is normal, second heart sounds normal there is systolic ejection murmur 2/6 located in the left sternal border. Abdomen: Soft, nontender, nondistended, positive bowel sounds. Extremities: There is no edema no calf tenderness DP +2 bilaterally. Neurologic examination: Patient is awake alert and oriented X 3, cranial nerves II-12 appear grossly intact, muscle power were 3 out of 5 in upper extremities and 3 out of 5 in bilateral lower extremities, deep tendon reflexes normal bilaterally. ASSESSMENT AND PLAN: 1. Syncope likely related to mild to moderate aortic valve stenosis. Echocardiogram was done, results are still pending at the time of dictation, follow-up with the patient very closely cardiology is following. 2. Non-ST elevation myocardial infarction, continue patient on aspirin 81 mg once every day, continue atorvastatin 80 mg once every day, monitor lipid panel, keep LDL 55-70 no plan for heart catheterization at this time 3. Paroxysmal atrial fibrillation. Continue patient on Eliquis 2.5 mg orally twice every day for life. Patient was taken off Cardizem drip at this time his heart rate 66 4. History of CAD post-PCI of the LAD and RCA. Last heart catheterization November 2019 showed stable disease. Continue aspirin 81 mg once every day, Lipitor 80 mg once every day, lisinopril 20 mg every day, isosorbide 20 mg orally twice every day. 5. Hypertension and hypertensive cardiovascular disease. Continue lisinopril 20 mg orally once every day monitor the patient blood pressure very closely 6. Mixed hyperlipidemia. Continue Lipitor 80 mg once every day, keep LDL cholesterol 55-70. 7. Enlarged prostate continue Flomax 0.4 mg once every day. 8. Mild to moderate aortic valve stenosis. Echocardiogram was ordered still pending at time of dictation. 9. Prerenal azotemia. Resolved discontinue IV fluid 10. 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 Continue with physical therapy as needed. 11. Chronic diastolic heart failure. Continue patient on lisinopril 20 mg orally once every day, stable at this time 12. DVT prophylaxis. continue Eliquis 2.5 mg orally twice every day 13. GI prophylaxis. Continue Protonix 40 mg orally once every day. 14. Physical therapy evaluation for possible subacute rehabilitation 15. Influenza A with minimal left lower lobe infiltrate. Continue Zosyn and Tamiflu 30 mg orally twice every day for 5 days continue oxygen support, follow-up with the patient very closely 16. Plan for subacute rehabilitation Objective - Vital Signs Vital signs: Vital Signs Temp 98.0 F 10/09/24 07:35 Pulse 85 10/09/24 07:35 Resp 17 10/09/24 07:35 BP 122/66 10/09/24 07:35 Pulse Ox 93 L 10/09/24 07:35 FiO2 Intake & Output 10/08/24 10/09/24 10/09/24 18:59 06:59 18:59 Intake Total 240 36.958 240 Output Total 1300 0 Balance -1060 36.958 240 Weight 66 kg Intake: Intake, IV Titration 36.958 Amount Diltiazem 125 mg In 36.958 Sodium Chloride 0.9% 100 ml @ 5 MG/HR 5 mls/hr IV .Q24H [facility] Rx#:[id number] Oral 240 240 Output: Urine 1300 0 Straight 1300 Other: Voiding Method Diaper Diaper External Catheter # Voids 0 - Labs CBC & Chem 7: 10/08/24 05:25 10/08/24 05:25 Labs: Abnormal Lab Results - Last 24 Hours (Table) 10/08/24 Range/Units 11:37 Influenza Type A (PCR) Detected A (Not Detectd)
[2024-10-09 11:58] LABS: Basophils % (A) 0 %; Eosinophils % (A) 0 %; HCT 30.5 % (39.0-53.0); HGB 9.8 gm/dL (13.0-17.5); Lymphocytes # (A) 1.2 k/uL (1.0-4.8); Lymphocytes % (A) 14 %; MCH 31.6 pg (25.0-35.0); MCHC 32.1 g/dL (31.0-37.0); MCV 98.5 fL (80.0-100.0); Monocytes # (A) 0.3 k/uL (0-1.0); Monocytes % (A) 4 %; Neutrophils % (A) 81 %; Platelet Count 170 k/uL (150-450); RBC 3.09 m/uL (4.30-5.90); RDW 13.5 % (11.5-15.5); WBC 8.6 k/uL (3.8-10.6)
[2024-10-09 12:17] LABS: ALT 31 U/L (4-49); AST 59 U/L (17-59); African American GFR (CKD) 55 (>60 ml/min/1.73 sqM); Albumin 2.5 g/dL (3.5-5.0); Alkaline Phosphatase 58 U/L (38-126); Anion Gap 8 mmol/L; Blood Urea Nitrogen 51 mg/dL (9-20); Calcium 7.4 mg/dL (8.4-10.2); Carbon Dioxide 20 mmol/L (22-30); Chloride 100 mmol/L (98-107); Glucose 116 mg/dL (74-99); Non-African American GFR(CKD) 48 (>60 ml/min/1.73 sqM); Potassium 3.4 mmol/L (3.5-5.1); Sodium 128 mmol/L (137-145); Total Protein 4.7 g/dL (6.3-8.2)
[2024-10-09] MEDS: 0.9% NACL WITH KCL 20 MEQ/L 1,000 ML IV SCH (14:55)
[2024-10-09] MEDS: POTASSIUM CHLORIDE ER 20 MEQ TAB.ER PO STA (16:38)
[2024-10-09] MEDS: METOPROLOL SUCCINATE (ER) 25 MG TAB.ER.24H PO SCH (16:38)
--- NOTE | 2024-10-09 16:49 | P.PN ---
Subjective Progress Note Date: 10/08/24 The patient is a pleasant 89-year-old gentleman who is known to our service from before with a past medical history significant for CAD with prior stenting of the RCA and LAD as well as paroxysmal atrial fibrillation and hypertension and dyslipidemia and history of loop recorder implantation after an episode of syncope. We requested to see the patient in the emergency department for further evaluation of syncope. The patient is extremely poor historian and he is slightly confused and apparently does have mild underlying dementia. He was brought after he has been falling with unknown if there is a change in mental status. No symptoms of chest pain or chest discomfort. No shortness of his with no feeling of heart racing or fluttering. Further evaluation was performed including a chest x-ray came to be overall unremarkable and EKG showing sinus mechanism with nonspecific ST and T wave abnormalities with the first set of troponin came to be mildly abnormal. The patient was seen by our service back in 2022 when he presented with syncope and underwent loop recorder implantation and at that point he underwent an echo which revealed normal LV systolic function with evidence of mild aortic stenosis. On examination today he does have definitely significant systolic murmur at the right upper and left upper sternal border with decrease in the intensity of S2 with clear breathing sounds bilaterally and no edema was noted. He underwent also today a CT scan of the brain which came to be unremarkable October 07, 2024 The patient was seen and evaluated this morning. He does have some change in mental status and he is hemodynamically stable besides marginally low blood pressure. Giving the history of syncope and low blood pressure and the history of aortic stenosis I am going to stop the isosorbide mononitrate. Also I am going to stop the heparin giving that the patient is not a candidate for any invasive procedure at this point including a heart catheterization. The physical examination is remarkable for significant systolic murmur at the right upper sternal border with decrease in the intensity of S2 and diminished breathing sounds bilaterally and no edema was noted 10/08/2024 On 2 L nasal cannula oxygen, saturating 89%, chest x-ray shows possible left lower lobe pneumonia, on IV antibiotics, Echo from this admission shows EF 50 to 55%, No obvious regional wall motion abnormality, mild aortic stenosis, calcific aortic valve mean gradient 11 mmHg, technically difficult study. For this he was tested for influenza which was positive. Assessment Influenza A pneumonia Generalized weakness, questionable syncope Type II NSTEMI, multifactorial Mild aortic stenosis History of CAD status post PCI to LAD and RCA History of paroxysmal atrial fibrillation Chronic HFpEF, currently euvolemic Essential hypertension Plan DC Imdur because of low blood pressure. 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 electrolytes Objective - Vital Signs Vital signs: Vital Signs Temp 98.0 F 10/09/24 14:59 Pulse 64 10/09/24 14:59 Resp 17 10/09/24 14:59 BP 113/59 10/09/24 14:59 Pulse Ox 96 10/09/24 14:59 FiO2 Intake & Output 10/08/24 10/09/24 10/09/24 18:59 06:59 18:59 Intake Total 240 36.958 440 Output Total 1300 0 941 Balance -1060 36.958 -501 Weight 66 kg Intake: Intake, IV Titration 36.958 Amount Diltiazem 125 mg In 36.958 Sodium Chloride 0.9% 100 ml @ 5 MG/HR 5 mls/hr IV .Q24H [facility] Rx#:[id number] Oral 240 440 Output: Urine 1300 0 450 Straight 1300 450 Post Void Residual 491 Other: Voiding Method Diaper Diaper Diaper External Catheter # Voids 0 0 - Labs CBC & Chem 7: 10/09/24 11:34 10/09/24 11:34 Labs: Abnormal Lab Results - Last 24 Hours (Table) 10/09/24 10/09/24 Range/Units 11:34 11:34 RBC 3.09 L (4.30-5.90) m/uL Hgb 9.8 L (13.0-17.5) gm/dL Hct 30.5 L (39.0-53.0) % Sodium 128 L (137-145) mmol/L Potassium 3.4 L (3.5-5.1) mmol/L Carbon Dioxide 20 L (22-30) mmol/L BUN 51 H (9-20) mg/dL Creatinine 1.34 H (0.66-1.25) mg/dL Glucose 116 H (74-99) mg/dL Calcium 7.4 L (8.4-10.2) mg/dL Total Protein 4.7 L (6.3-8.2) g/dL Albumin 2.5 L (3.5-5.0) g/dL
--- NOTE | 2024-10-09 16:51 | P.PN ---
Subjective Progress Note Date: 10/09/24 The patient is a pleasant 89-year-old gentleman who is known to our service from before with a past medical history significant for CAD with prior stenting of the RCA and LAD as well as paroxysmal atrial fibrillation and hypertension and dyslipidemia and history of loop recorder implantation after an episode of syncope. We requested to see the patient in the emergency department for further evaluation of syncope. The patient is extremely poor historian and he is slightly confused and apparently does have mild underlying dementia. He was brought after he has been falling with unknown if there is a change in mental status. No symptoms of chest pain or chest discomfort. No shortness of his with no feeling of heart racing or fluttering. Further evaluation was performed including a chest x-ray came to be overall unremarkable and EKG showing sinus mechanism with nonspecific ST and T wave abnormalities with the first set of troponin came to be mildly abnormal. The patient was seen by our service back in 2022 when he presented with syncope and underwent loop recorder implantation and at that point he underwent an echo which revealed normal LV systolic function with evidence of mild aortic stenosis. On examination today he does have definitely significant systolic murmur at the right upper and left upper sternal border with decrease in the intensity of S2 with clear breathing sounds bilaterally and no edema was noted. He underwent also today a CT scan of the brain which came to be unremarkable October 07, 2024 The patient was seen and evaluated this morning. He does have some change in mental status and he is hemodynamically stable besides marginally low blood pressure. Giving the history of syncope and low blood pressure and the history of aortic stenosis I am going to stop the isosorbide mononitrate. Also I am going to stop the heparin giving that the patient is not a candidate for any invasive procedure at this point including a heart catheterization. The physical examination is remarkable for significant systolic murmur at the right upper sternal border with decrease in the intensity of S2 and diminished breathing sounds bilaterally and no edema was noted 10/08/2024 On 2 L nasal cannula oxygen, saturating 89%, chest x-ray shows possible left lower lobe pneumonia, on IV antibiotics, 10/09/2024 Last night patient went into atrial fibrillation with RVR for which patient was started on Cardizem drip. This morning patient converted out of atrial fibrillation. He appears euvolemic denies any chest pain chest pressure lightheadedness or dizziness at this time. There are some concerns of possible suicidal ideation for which psychiatry has been consulted. Assessment Influenza A pneumonia Generalized weakness, questionable syncope Type II NSTEMI, multifactorial Mild aortic stenosis History of CAD status post PCI to LAD and RCA History of paroxysmal atrial fibrillation Chronic HFpEF, currently euvolemic Essential hypertension Pertinent cardiac testing Echo from this admission shows EF 50 to 55%, No obvious regional wall motion abnormality, mild aortic stenosis, calcific aortic valve mean gradient 11 mmHg, technically difficult study. For this he was tested for influenza which was positive. Plan Discontinue Cardizem drip, start metoprolol succinate 25 mg daily. Continue current medications which includes aspirin, Eliquis, Lipitor Obtain a 14-day extended Holter monitor from home with for indication of syncope and to understand the burden of atrial fibrillation he is having and to make sure there is no concerning bradycardia arrhythmias. At this time patient is stable from cardiovascular standpoint. Cardiology team will sign off Please reconsult us in case of any question Objective - Vital Signs Vital signs: Vital Signs Temp 98.0 F 10/09/24 14:59 Pulse 64 10/09/24 14:59 Resp 17 10/09/24 14:59 BP 113/59 10/09/24 14:59 Pulse Ox 96 10/09/24 14:59 FiO2 Intake & Output 10/08/24 10/09/24 10/09/24 18:59 06:59 18:59 Intake Total 240 36.958 440 Output Total 1300 0 941 Balance -1060 36.958 -501 Weight 66 kg Intake: Intake, IV Titration 36.958 Amount Diltiazem 125 mg In 36.958 Sodium Chloride 0.9% 100 ml @ 5 MG/HR 5 mls/hr IV .Q24H [facility] Rx#:[id number] Oral 240 440 Output: Urine 1300 0 450 Straight 1300 450 Post Void Residual 491 Other: Voiding Method Diaper Diaper Diaper External Catheter # Voids 0 0 - Labs CBC & Chem 7: 10/09/24 11:34 10/09/24 11:34 Labs: Abnormal Lab Results - Last 24 Hours (Table) 10/09/24 10/09/24 Range/Units 11:34 11:34 RBC 3.09 L (4.30-5.90) m/uL Hgb 9.8 L (13.0-17.5) gm/dL Hct 30.5 L (39.0-53.0) % Sodium 128 L (137-145) mmol/L Potassium 3.4 L (3.5-5.1) mmol/L Carbon Dioxide 20 L (22-30) mmol/L BUN 51 H (9-20) mg/dL Creatinine 1.34 H (0.66-1.25) mg/dL Glucose 116 H (74-99) mg/dL Calcium 7.4 L (8.4-10.2) mg/dL Total Protein 4.7 L (6.3-8.2) g/dL Albumin 2.5 L (3.5-5.0) g/dL
--- NOTE | 2024-10-09 18:30 | CDI ---
Documentation Clarification Form Date: 10/09/2024 05:54:00 PM From: Kimberly Craig RN, CCDS Phone: [phone] Admit Date: 10/05/2024 07:59:00 PM Patient Name: Ruiz Bright Visit Number: [id number] Discharge Date: ATTENTION: The Clinical Documentation Specialists (CDI) and [facility] Coding Staff appreciate your assistance in clarifying documentation. Please respond to the clarification below the line at the bottom and electronically sign. The CDI & [facility] Coding staff will review the response and follow-up if needed. Please note: Queries are made part of the Legal Health Record. If you have any questions, please contact the author of this message via ITS. Doctor. Nayeli Michel Conflicting documentation has been found in the medical record. As attending physician, please provide clarification. 10/08 Cardiology progress note: Type II NSTEMI, multifactorial H/P and subsequent progress notes: Non-ST elevation myocardial infarction History/Risk Factors: Hyperlipidemia, Hypertension, Myocardial Infarction (CT), status post PCI of the LAD and RCA, (05/31/2023) Clinical Indicators: 89-year-old male to ED possible syncope episode. EKG showed normal sinus rhythm with first-degree AV block with Q waves inferiorly suggestive of old CT. 10/05 VS 105/46 82 16 98.5 97% RA Labs: Troponin I 0.047, 0.139 BNP 2820 Treatment: Manager Vehicle / Telemetry Eliquis 2.5 MG PO BID ASA 81 MG PO Q Day, Lipitor 80 MG Daily, Lisinopril 20 MG Daily 10/07 ECHO: EF 50-55 % Mild aortic stenosis, calcific aortic valve mean gradient 11 mmHg Please clarify which diagnosis is most appropriate: [x ] Type II NSTEMI, (specify cause if known) [ ] Non-ST elevation myocardial infarction [ ] Other (please specify) [ ] Unable to determine (Template Last Revised: September 2020) MTDD
[2024-10-10] MEDS: ACETAMINOPHEN IV (For NPO) 1,000 MG in EMPTY BAG 1 BAG IVPB SCH (03:22)
[2024-10-10] MEDS: ATORVASTATIN 40 MG TAB PO SCH (07:48)
--- NOTE | 2024-10-10 10:17 | P.PN ---
Subjective Progress Note Date: 10/10/24 HISTORY OF PRESENT ILLNESS: This is an 89-year-old male patient of eduardo and Dr. Myers with a past medical history coronary artery disease status post PCI of the LAD and RCA, history of hypertension, hyperlipidemia BPH, neck and back surgeries for degenerative arthritis, patient was hospitalized at [facility] in 05/31/2023 and he was found to have a significant stenosis of the proximal LAD after heart cath physician that was done by Dr. Quintana, he underwent left heart catheterization with PCI of the proximal LAD Xience stent, and he did have a balloon angioplasty for dilatation as well, patient has done well over the last few months, patient was recently hospitalized at [facility] from September 02 August 24 after recurrent falls and not able to ambulate on his own, he was sent to [facility] [place] for physical therapy and rehabilitation, patient had a matter fact was discharged from our yesterday, he went home as the patient did not want to stay over there, on the way home patient was extremely weak, his and his daughter managed to get him to the house, however the patient had a syncopal episode, they thought that he had had a stroke because he was unrespons queta for few minutes, EMS was called and the patient was brought into the emergency department at [facility], had a CT scan of the brain 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, CT of the cervical spine showed significant degenerative disc disease of the cervical spine with extensive surgical changes with hardware intact, chest x-ray was negative, twelve-lead EKG showed normal sinus rhythm with first-degree AV block with Q waves inferiorly suggestive of old OR, x-rays of the pelvis did not show any evidence of any acute fracture, but the patient otherwise did not have any focal neurological deficit, his EKG did not show any evidence of acute ST-T wave changes just sinus rhythm with first-degree AV block and old Q waves in the inferior leads., but because of the presentation he was admitted to the hospital for evaluation by cardiology as well as by neurology, patient was placed on the monitor bed, he will be seen in consultation by physical therapy and Occupational Therapy along with socially responsible investment adviser as the patient I believe not able to be home at this point in time may need to have a placement for 24-hour care. 10/07: Patient sitting up in bed in no apparent distress, he continues to have a raspy voice, he has no appetite, he has not been eating much, he does not feel hungry, he wanted to go home at this time, he is extremely weak, he needed 2 person assist to get up in the bed, physical therapy has not evaluated the patient yet, patient will likely require to go to subacute rehabilitation, patient had an echocardiogram the result of which still pending at the time of dictation, this is likely related to a moderate aortic valve stenosis according to cardiology, we will continue to follow-up with the patient very closely. 10/08: Patient is complaining of increased dry cough minimal phlegm production, his oxygenation dropped to 88 to 89% on room air, he was placed on 2 L nasal cannula, we will obtain portable chest x-ray for evaluation of possible left lo wer lobe pneumonia, I will start the patient on IV antibiotic in the form of Zosyn 3.375 g piggyback every 8 hours, physical therapy to evaluate the patient because the patient is extremely weak at this point, for the patient to be able to get into subacute rehabilitation at this point in time. I will start the patient on nebulized treatment in the form of DuoNeb 3 mL nebulization 4 times every day as well. 10/09: Patient is sitting up in bed he came plaints of increased pain in the right buttock area rating to the right lower extremity, is not able to lift his right leg off the bed, he is not able to ambulate even using the walker, physical therapy to continue work with the patient at this time, patient is tested positive for influenza A, he was started on Zosyn as well as Tamiflu yesterday, continue to follow-up with the patient very closely, he had an episode of atrial fibrillation yesterday he was started on Cardizem drip at 5 mg an hour then he was taken off of it because of bradycardia, follow-up with the patient very closely his current heart rate is about 66, underlying atrial fibrillation 10/10: Patient is quite confused today he does not know where he is at at this point in time, he is having hard time moving his right lower extremity, he continues to have pain in the right hip area, I will send him for CT scan of the right hip as well as CT scan of the lumbar spine, rule out retroperitoneal bleed, patient has been treated with Tamiflu 30 mg orally twice every day for recent influenza, has been treated for pneumonia as well and non-ST elevation OR, he is extremely weak at this point in time he will require to go to subacute rehabilitation, patient was agitated yesterday and restraint was placed on the patient and they were taken off in the morning, patient did have some suicidal thoughts he will be evaluated by psychiatry. REVIEW OF SYSTEMS: Constitutional: No documented fever, no chills, no night sweats. Positive for weight change. positive for weakness, fatigue or lethargy. No daytime sleepiness. HEENT: No headache. No blurred vision or double vision, no loss of vision. Decrease Hearing, no ringing in the ears, no dizziness. No nasal drainage or congestion. No epistaxis. No sore throat. Lungs: Positive for shortness of breath, occasional cough, no sputum production. No wheezing. Reports dyspnea with activity. Cardiovascular: No chest pain, no lower extremity edema. No palpitations. No paroxysmal nocturnal dyspnea. No orthopnea. Positive for lightheadedness, positive for syncope Abdominal: Reports no abdominal pain. positive for nausea, no vomiting. No diarrhea. No constipation. No bloody or tarry stools reports loss of appetite. Genitourinary: positive for urinary frequency. Musculoskeletal: No myalgias. Positive for muscle weakness,positive for gait dysfunction, positive for frequent falls, positive for back pain, and neck pain. Positive for loss of balance. Integumentary: No wounds, no lesions. No rash or pruritus. Positive for unusual bruising. No change in hair or nails. Neurologic: No aphasia. No facial droop. Positive for change in mentation. No head injury. No headache. No paralysis. No paresthesia. Psychiatric: positive for depression. No anxiety. positive for mood swings, patient expressed suicidal thoughts. Endocrine: No abnormal blood sugars. Positive for weight change. PHYSICAL EXAMINATION: General: 89-year-old male sitting up in bed in no distress HEENT: Head is atraumatic, normocephalic, pupils were equal round reactive to light and recommendation, extraocular muscle movement were intact, sclera nonicteric, conjunctivae were pale, mucous membranes of the mouth are somewhat dry. Neck: Supple, no JVP, normal carotid upstroke bilaterally, no lymphadenopathy. Chest: Decreased breath sounds at the bases, few rhonchi at the left base no expiratory wheezes, no chest wall tenderness, no intercostal retractions. Heart: First heart sound is normal, second heart sounds normal there is systolic ejection murmur 2/6 located in the left sternal border. Abdomen: Soft, nontender, nondistended, positive bowel sounds. Extremities: There is no edema no calf tenderness DP +2 bilaterally. Neurologic examination: Patient is awake alert and oriented X 1, cranial nerves II-12 appear grossly intact, muscle power were 3 out of 5 in upper extremities and 1 out of 5 in the right lower extremity and 3 out of 5 in the left lower extremity. ASSESSMENT AND PLAN: 1. Syncope likely related to mild to moderate aortic valve stenosis. Echocardiogram was done, and that showed evidence of mild aortic valve stenosis will continue current treatment plan. 2. Non-ST elevation myocardial infarction, continue patient on aspirin 81 mg once every day, continue atorvastatin 80 mg once every day, monitor lipid panel, keep LDL 55-70 no plan for heart catheterization at this time 3. Paroxysmal atrial fibrillation. Continue patient on Eliquis 2.5 mg orally twice every day for life. 4. History of CAD post-PCI of the LAD and RCA. Last heart catheterization November 2019 showed stable disease. Continue aspirin 81 mg once every day, Lipitor 80 mg once every day, lisinopril 20 mg every day, isosorbide 20 mg orally twice every day. 5. Hypertension and hypertensive cardiovascular disease. Continue lisinopril 20 mg orally once every day monitor the patient blood pressure very closely 6. Mixed hyperlipidemia. Continue Lipitor 80 mg once every day, keep LDL cholesterol 55-70. 7. Enlarged prostate continue Flomax 0.4 mg once every day. 8. Mild to moderate aortic valve stenosis. He is echocardiogram only showed evidence of mild aortic valve stenosis. 9. Prerenal azotemia. Continue IV fluid resuscitation at 75 cc an hour. 10. 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 Continue with physical therapy as needed. 11. Chronic diastolic heart failure. Continue patient on lisinopril 20 mg orally once every day, stable at this time 12. DVT prophylaxis. continue Eliquis 2.5 mg orally twice every day 13. GI prophylaxis. Continue Protonix 40 mg orally once every day. 14. Physical therapy evaluation for possible subacute rehabilitation 15. Influenza A with minimal left lower lobe infiltrate. Continue Zosyn and Tamiflu 30 mg orally twice every day for 5 days continue oxygen support, follow- up with the patient very closely 16. right lower extremity weakness we will obtain CT scan of the right hip as well as CT scan of the lumbar spine without contrast for further evaluation recommendation. 17. Major depressive disorder with thoughts of suicide according to the nursing staff, will consult psychiatry keep the sitter one-on-one. Objective - Vital Signs Vital signs: Vital Signs Temp 97.6 F 10/10/24 07:40 Pulse 58 L 10/10/24 07:40 Resp 18 10/10/24 07:40 BP 108/63 10/10/24 07:40 Pulse Ox 95 10/10/24 07:40 FiO2 Intake & Output 10/09/24 10/10/24 10/10/24 18:59 06:59 18:59 Intake Total 680 Output Total 941 Balance -261 Weight 69 kg Intake: Oral 680 Output: Urine 450 Straight 450 Post Void Residual 491 Other: Voiding Method Diaper Diaper # Voids 0 - Labs CBC & Chem 7: 10/09/24 11:34 10/09/24 11:34 Labs: Abnormal Lab Results - Last 24 Hours (Table) 10/09/24 10/09/24 Range/Units 11:34 11:34 RBC 3.09 L (4.30-5.90) m/uL Hgb 9.8 L (13.0-17.5) gm/dL Hct 30.5 L (39.0-53.0) % Sodium 128 L (137-145) mmol/L Potassium 3.4 L (3.5-5.1) mmol/L Carbon Dioxide 20 L (22-30) mmol/L BUN 51 H (9-20) mg/dL Creatinine 1.34 H (0.66-1.25) mg/dL Glucose 116 H (74-99) mg/dL Calcium 7.4 L (8.4-10.2) mg/dL Total Protein 4.7 L (6.3-8.2) g/dL Albumin 2.5 L (3.5-5.0) g/dL
[2024-10-10 10:55] LABS: ALT 34 U/L (4-49); AST 65 U/L (17-59); African American GFR (CKD) 70 (>60 ml/min/1.73 sqM); Albumin 2.4 g/dL (3.5-5.0); Alkaline Phosphatase 51 U/L (38-126); Anion Gap 5 mmol/L; Blood Urea Nitrogen 42 mg/dL (9-20); Calcium 7.5 mg/dL (8.4-10.2); Carbon Dioxide 21 mmol/L (22-30); Chloride 106 mmol/L (98-107); Glucose 108 mg/dL (74-99); Non-African American GFR(CKD) 60 (>60 ml/min/1.73 sqM); Potassium 4.3 mmol/L (3.5-5.1); Sodium 132 mmol/L (137-145); Total Bilirubin 0.8 mg/dL (0.2-1.3); Total Protein 4.7 g/dL (6.3-8.2)
[2024-10-10 11:00] LABS: Basophils % (A) 0 %; Eosinophils % (A) 0 %; HCT 28.1 % (39.0-53.0); Lymphocytes # (A) 1.5 k/uL (1.0-4.8); Lymphocytes % (A) 19 %; MCH 31.3 pg (25.0-35.0); MCHC 31.9 g/dL (31.0-37.0); MCV 98.2 fL (80.0-100.0); Monocytes # (A) 0.3 k/uL (0-1.0); Monocytes % (A) 4 %; Neutrophils # (A) 5.6 k/uL (1.3-7.7); Neutrophils % (A) 75 %; Platelet Count 146 k/uL (150-450); RBC 2.86 m/uL (4.30-5.90); RDW 13.5 % (11.5-15.5); WBC 7.5 k/uL (3.8-10.6)
--- NOTE | 2024-10-10 13:30 | P.CN ---
Psychiatric Consult - . Consult date: 10/10/24 Consult:: 10/10/24 12:55 IDENTIFYING DATA: This patient is a 89-year-old male, claims that he is he has 2 kids and lives in a house REASON FOR REFERRAL: Psychiatry was consulted for suicidal ideation HISTORY OF PRESENT ILLNESS: The patient presented to the hospital initially on 10/05 for altered mental status, was displaying weakness unresponsiveness. Patient was recently discharged from rehab we had an extended hospitalization. He was found to have a NSTEMI, was dehydrated, also having a failure to thrive. He was positive for influenza A. Patient apparently was aggressive, needing restraints, combative with staff. Patient was also exhibiting confusion and agitation yesterday. Patient apparently made a suicidal statement, was placed on a one-to-one sitter. Environmental Studies Program Director spoke with patient today at the bedside, he cor rectly knew his name age believes that it was "September 2024" and did not know today's date or location. He did not know his situation as to why he is in the hospital. He denied any issues, very poor insight poor judgment. He became increasingly irritable with literary writer during interview and was focused on discharge. Claims that his sleep has been poor appetite has been fair. He was exhibiting some paranoia towards literary writer did not believe that his primary doctor consulted literary writer to come and talk with him, believes that he was being "interrogated" and was confrontational, pointing his finger at literary writer in a threatening manner. Poor impulse control. At this time patient denies any suicidal or homical ideations, intent or plan. Patient denies any auditory, visual hallucinations. Patients denies any recreational drug use Patient was a fairly poor historian, could not give much past psychiatric history or social history. PAST PSYCHIATRIC HISTORY: Patient was unable to provide any past psychiatric history. Patient apparently has a history of depression/anxiety. He is currently on Lexapro 20 mg daily for mood/anxiety. 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 CHEMICAL DEPENDENCY HISTORY: as per HPI. FAMILY PSYCHIATRIC/SUBSTANCE USE HISTORY: Unable to gather SOCIAL HISTORY: Patient claims that he currently lives with his in a house, he has 2 kids. Could not give any further social history MENTAL STATUS EXAM: General Appearance: Patient appears to be thin, tall, stated age is alert, confrontational, irritable and threatening at times. Patient appears to have fair hygiene and grooming wearing hospital gown with poor eye contact. Behavior: Patient is somewhat irritable, threatening and confrontational towards literary writer. Speech: Patient's speech is fluent and nonpressured. Irritable tone Mood/Affect: Patient reports their mood is "fine", affect is congruent Suicidality/Homicidality: Patient denies having any suicidal or homicidal ideation intent or plan. Perceptions: Patient denies any visual hallucinations and denies any auditory hallucinations Though content/process: Fairly concrete, evasive. Endorsing paranoia mainly towards literary writer, focused on discharge Memory and concentration: AOX1, he does not know today's date or his location. Cannot spell "WORLD" backwards Judgment and insight: Poor/limited IMPRESSIONS: Delirium, likely secondary to multiple etiologies Likely underlying major neurocognitive disorder History of anxiety and depression PLAN: -At this time patient DOES NOT meet criteria for inpatient psychiatric admission. -Patient DOES NOT have decision making capacity at this time and is unable to reason through and communicate/appreciate the risks, benefits and alternatives to treatment. -Delirium precautions recommended with patient including - avoiding use of narcotics and QUILL MACHINE OPERATOR sedatives, limit anticholinergic medications when possible, frequent re-orientation, minimize use of restraints, open window shades during the day and close them at night -Would recommend the following medication changes/additions: Can give 1 dose of Zyprexa 2.5 mg now for increased paranoia and aggression, scheduled 2.5 mg nightly for aggression/paranoia/sleep. Haldol as needed for severe agitation/psychosis. Continue with Lexapro 20 mg daily for mood/anxiety -Continue 1:1 sitter for safety -creamery worker to provide patient with outpatient mental health/psychiatry resources for appropriate follow up upon discharge -Communicated plan to patient's nurse -Will continue to follow along as needed -Please contact with any questions. 10/10/24 13:23
[2024-10-10] MEDS: OLANZapine 2.5 MG TAB PO ONE (14:25)
--- NOTE | 2024-10-10 15:29 | CT ---
EXAMINATION TYPE: CT hip RT wo con DATE OF EXAM: 10/10/2024 3:17 PM COMPARISON: . Extremity radiographs CLINICAL INDICATION: Male, 89 years old with history of painn; PHH, RT HIP pain/fall TECHNIQUE: Axial images were obtained of the CT hip RT wo con, Additional coronal and sagittal reform atted images and soft tissue and bone window were obtained for review. 3-D reconstruction was created on a separate workstation. Contrast used: mL of , (None if empty) Oral contrast used: (None if empty) CT DLP: 1639.6 mGycm, Automated exposure control for dose reduction was used. FINDINGS: Diffuse osseous demineralization. There is degeneration changes with joint space narrowing osteophyte formation of the hips. Fixation hardware in the lower spine appear intact. Degeneration of the sacroiliac joints with osteophyte formation present. There is no evidence of fracture, subluxati on, or dislocation. No significant soft tissue swelling or joint effusion is identified. No focal mu scular atrophy or edema is identified IMPRESSION: 1. No evidence of fracture. The remains concern for fracture consider MRI. 2. Moderate degeneration changes of the right hip. 3. Diffuse osseous demineralization. [facility], , 10/10/2024 3:27 PM
--- NOTE | 2024-10-10 15:29 | CT ---
EXAMINATION TYPE: CT lumbar spine wo con DATE OF EXAM: 10/10/2024 3:17 PM COMPARISON: CT thoracolumbar spine dated 01/27/2017 CLINICAL INDICATION: Male, 89 years old with history of pain/fall; PHH, pain/fall. HX OF SPINAL SX TECHNIQUE: Unenhanced CT of the lumbar spine was performed. Bone and soft tissue window settings are submitted as well as coronal and sagittal reconstructions. CT DLP: 1639.[address] CTDI: mGy Automated exposure control for dose reduction was used. FINDINGS: There are postsurgical changes of laminectomy from from L1-2 through L3-4. There is posterior metalli c fusion throughout the lumbar spine and visualized lower thoracic spine with pedicle screws and post erior rods. There is a fracture of the left pedicle screw at L2. There is a stable mild superior endplate compression fracture of L2. There are no new lumbar spine fr actures. There is no malalignment. Metallic artifact limits evaluation of the spinal canal but there is no bony encroachment of the spinal canal. There are no large disc herniations. IMPRESSION: 1. Postsurgical changes of extensive laminectomy and osteometallic fusion as described above. 2. Fracture of the left L2 pedicle screw. 3. Stable mild superior endplate compression fracture of L2 with no acute fractures or malalignment. 4. Limited evaluation of spinal canal due to streak artifact from the metallic fusion but no definite compromise or stenosis of spinal canal.. [facility], , 10/10/2024 3:27 PM
[2024-10-10] MEDS: HALOPERIDOL LACTATE 5 MG/ML 1 ML VIAL IM PRN (21:13)
[2024-10-10] MEDS: ACETAMINOPHEN IV (For NPO) 1,000 MG in EMPTY BAG 1 BAG IVPB ONE (21:22)
[2024-10-10] MEDS: OLANZapine 2.5 MG TAB PO SCH (21:27)
[2024-10-11] MEDS ORDERED: ACETAMINOPHEN IV (For NPO) 1,000 MG in EMPTY BAG 1 BAG IVPB PRN (06:30)
[2024-10-11] MEDS: MORPHINE SULFATE 2 MG/ML SYRINGE IVP PRN (06:42)
[2024-10-11 07:32] LABS: Basophils % (A) 0 %; Eosinophils % (A) 0 %; HCT 30.9 % (39.0-53.0); HGB 9.9 gm/dL (13.0-17.5); Lymphocytes # (A) 2.3 k/uL (1.0-4.8); Lymphocytes % (A) 24 %; MCH 31.8 pg (25.0-35.0); MCV 99.4 fL (80.0-100.0); Monocytes # (A) 0.4 k/uL (0-1.0); Monocytes % (A) 5 %; Neutrophils # (A) 6.7 k/uL (1.3-7.7); Neutrophils % (A) 69 %; Platelet Count 211 k/uL (150-450); RBC 3.11 m/uL (4.30-5.90); RDW 13.5 % (11.5-15.5); WBC 9.6 k/uL (3.8-10.6)
[2024-10-11 07:45] LABS: ALT 35 U/L (4-49); AST 68 U/L (17-59); African American GFR (CKD) 79 (>60 ml/min/1.73 sqM); Albumin 2.5 g/dL (3.5-5.0); Alkaline Phosphatase 59 U/L (38-126); Anion Gap 7 mmol/L; Blood Urea Nitrogen 34 mg/dL (9-20); Calcium 7.9 mg/dL (8.4-10.2); Carbon Dioxide 19 mmol/L (22-30); Chloride 112 mmol/L (98-107); Glucose 102 mg/dL (74-99); Magnesium 2.4 mg/dL (1.6-2.3); Non-African American GFR(CKD) 68 (>60 ml/min/1.73 sqM); Potassium 5.5 mmol/L (3.5-5.1); Sodium 138 mmol/L (137-145); Total Protein 4.9 g/dL (6.3-8.2)
--- NOTE | 2024-10-11 10:43 | P.CNOR ---
History of Present Illness - [facility] Consult date: 10/11/24 Consult reason: joint pain (Reported right hip pain), fracture (L2 pedicle screw fracture) History of present illness: Patient is an 89-year-old male who is seen examined at bedside for further evaluation of his lumbar spine. CT imaging of his right hip and lumbar spine were performed. He was shown to have an L2 pedicle fracture. We are consulted in this regard. Patient answers questions at the bedside but is combative and confused. He was seen and examined by psychology yesterday after suicidal ideation. Patient has been sustaining multiple falls and was recently discharged from a rehab facility. He sustained another fall with syncopal episode and was brought to [facility] for further evaluation. Medicine does not feel the patient is safe for home discharge. They feel patient needs 24-hour care. He currently has a sitter. They are planning for discharge to a rehabilitation facility. At the bedside, patient is not specifically complaining of any pain at his paul mbar spine and right hip. He specifically asked for me not to treat him and to leave him alone. He is admitted to medicine. He has significant multiple other medical diagnoses. He is known to have multiple surgical interventions at his thoracic and lumbar spines. Past Medical History Past Medical History: Hyperlipidemia, Hypertension, Myocardial Infarction (OR), Osteoarthritis (OA), Pneumonia, Prostate Disorder Additional Past Medical History / Comment(s): enlarged prostate-currently has march catheter, has some balance issue-uses walker when outside home, sinus problems Last Myocardial Infarction Date:: 1993 History of Any Multi-Drug Resistant Organisms: None Reported Past Surgical History: Back Surgery, Heart Catheterization, Heart Catheterization With Stent, Tonsillectomy Additional Past Surgical History / Comment(s): 2 Neck surgery, STATES HAS "PLASTIC" IN NECK, METAL IN BACK, STENT IN HEART X2, NORTH CATARACTS Past Anesthesia/Blood Transfusion Reactions: No Reported Reaction Additional Past Anesthesia/Blood Transfusion Reaction / Comm: no hx blood transfusion Date of Last Stent Placement:: 2022 Past Psychological History: No Psychological Hx Reported Smoking Status: Former smoker Past Alcohol Use History: None Reported Past Drug Use History: None Reported - Past Family History Father History Unknown: Yes Family Medical History: Myocardial Infarction (OR) Additional Family Medical History / Comment(s): Several mi's- with major OR Mother History Unknown: Yes Family Medical History: CVA/TIA Daughter(s) History Unknown: Yes Family Medical History: Diabetes Mellitus Medications and Allergies Home Medications Medication Instructions Recorded Confirmed Type Isosorbide Mononitrate [Ismo] 20 mg PO BID-W/MEALS 03/25/14 10/05/24 History Atorvastatin Calcium [Lipitor] 80 mg PO DAILY 08/12/18 10/05/24 History Tamsulosin [Flomax] 0.4 mg PO DAILY 12/07/19 10/05/24 History Aspirin EC [Ecotrin Low Dose] 81 mg PO HS 06/12/21 10/05/24 History Potassium Chloride [Klor-Con M20] 20 meq PO DAILY 09/15/23 10/05/24 History Apixaban [Eliquis] 5 mg PO DAILY 10/17/23 10/05/24 History Escitalopram [Lexapro] 20 mg PO DAILY 08/20/24 10/05/24 History Furosemide [Lasix] 20 mg PO DAILY 08/20/24 10/05/24 History lisinopriL [Zestril] 20 mg PO DAILY 08/20/24 10/05/24 History Acetaminophen Tab [Tylenol] 650 mg PO Q6H PRN 10/05/24 10/05/24 History Nitroglycerin Sl Tabs [Nitrostat] 0.4 mg SUBLINGUAL Q5M PRN 10/05/24 10/05/24 History Ondansetron [Zofran] 4 mg PO Q6H PRN 10/05/24 10/05/24 History Sennosides [Senokot] 8.6 mg PO BID-W/MEALS 10/05/24 10/05/24 History polyethylene glycoL 3350 [Miralax] 17 gm PO DAILY PRN 10/05/24 10/05/24 History Allergies Allergy/AdvReac Type Severity Reaction Status Date / Time adhesive tape AdvReac pulls skin Verified 10/05/24 15:07 off adhesive dressings AdvReac pulls skin Uncoded 10/05/24 13:48 off Physical Examination Physical exam: Patient is awake and alert but is agitated and confused Vital signs stable Adequate chest excursion with deep inspiration and expiration Patient initially resistant to following commands Dorsiflexion, plantarflexion, and extensor hallucis longus positive sustained bilaterally Straight leg test negative bilateral lower extremities Negative Lasegue's test bilaterally No signs or symptoms of DVT; no calf pain No pain with internal and external rotation of the hips bilaterally No pain with palpation over the right hip No bruising or swelling over the right hip March catheter intact Results Pertinent studies: CT of the right hip taken on 10/10/2024: No evidence of fracture; moderate degenerative changes of the right hip; diffuse osseous demineralization CT of the lumbar spine taken on 10/10/2024: Evidence of extensive surgical intervention with retained hardware; evidence of previous fusion L3-S1 with retained hardware which appears stable and intact; evidence of previous fusion with retained hardware at L2 extending up to at least T10 with evidence of pedicle screw fracture of L2 of indeterminate age with chronic appearing L2 compression fracture; admitted evaluation of spinal canal due to streak artifact from metallic fusion but no definite compromise or stenosis of spinal canal - Labs Labs: Abnormal Lab Results - Last 24 Hours (Table) 10/10/24 10/10/24 10/11/24 Range/Units 10:25 10:25 06:56 RBC 2.86 L (4.30-5.90) m/uL Hgb 9.0 L (13.0-17.5) gm/dL Hct 28.1 L (39.0-53.0) % Plt Count 146 L (150-450) k/uL Sodium 132 L (137-145) mmol/L Potassium 5.5 H (3.5-5.1) mmol/L Chloride 112 H (98-107) mmol/L Carbon Dioxide 21 L 19 L (22-30) mmol/L BUN 42 H 34 H (9-20) mg/dL Glucose 108 H 102 H (74-99) mg/dL Calcium 7.5 L 7.9 L (8.4-10.2) mg/dL Magnesium 2.4 H (1.6-2.3) mg/dL AST 65 H 68 H (17-59) U/L Total Protein 4.7 L 4.9 L (6.3-8.2) g/dL Albumin 2.4 L 2.5 L (3.5-5.0) g/dL 10/11/24 Range/Units 06:56 RBC 3.11 L (4.30-5.90) m/uL Hgb 9.9 L (13.0-17.5) gm/dL Hct 30.9 L (39.0-53.0) % Plt Count (150-450) k/uL Sodium (137-145) mmol/L Potassium (3.5-5.1) mmol/L Chloride (98-107) mmol/L Carbon Dioxide (22-30) mmol/L BUN (9-20) mg/dL Glucose (74-99) mg/dL Calcium (8.4-10.2) mg/dL Magnesium (1.6-2.3) mg/dL AST (17-59) U/L Total Protein (6.3-8.2) g/dL Albumin (3.5-5.0) g/dL H & H 10/05/24 10/06/24 10/08/24 Range/Units 13:50 07:44 05:25 Hgb 11.4 L 12.3 L 10.8 L (13.0-17.5) gm/dL Hct 34.4 L 37.0 L 32.4 L (39.0-53.0) % 10/09/24 10/10/24 10/11/24 Range/Units 11:34 10:25 06:56 Hgb 9.8 L 9.0 L 9.9 L (13.0-17.5) gm/dL Hct 30.5 L 28.1 L 30.9 L (39.0-53.0) % Coagulation 10/05/24 Range/Units 13:50 INR 1.1 (<1.2) Result Diagrams: 10/11/24 06:56 10/11/24 06:56 Assessment and Plan Assessment: Assessment: Reported right hip pain History of multiple surgical interventions at the thoracic and lumbar spines with retained hardware at at least T10-S1 L2 pedicle screw fracture Chronic L2 fracture Status post fall Frequent falls Syncopal episode Paroxysmal atrial fibrillation History of coronary artery disease with stent placement Hypertension Mixed hyperlipidemia Non-ST elevation myocardial infarction Aortic valve stenosis Prerenal azotemia (1) Frequent falls Current Visit: Yes Status: Acute Code(s): R29.6 - REPEATED FALLS SNOMED Code(s): 525832220 (2) Episode of syncope Current Visit: Yes Status: Acute Code(s): R55 - SYNCOPE AND COLLAPSE SNOMED Code(s): 053541063 (3) Hardware failure Current Visit: Yes Status: Acute Code(s): KTR2448 - SNOMED Code(s): 250243162 (4) Right hip pain Current Visit: Yes Status: Acute Code(s): M25.551 - PAIN IN RIGHT HIP SNOMED Code(s): 50526741 (5) L2 vertebral fracture Current Visit: Yes Status: Acute Code(s): S32.029A - UNSP FRACTURE OF SECOND LUMBAR VERTEBRA, INIT FOR CLOS FX SNOMED Code(s): 905470281 (6) Atrial fibrillation Current Visit: Yes Status: Acute Code(s): I48.91 - UNSPECIFIED ATRIAL FIBRILLATION SNOMED Code(s): 96383574 (7) Hypertension Current Visit: Yes Status: Acute Code(s): I10 - ESSENTIAL (PRIMARY) HYPERTENSION SNOMED Code(s): 27101364 (8) Mixed hyperlipidemia Current Visit: Yes Status: Acute Code(s): E78.2 - MIXED HYPERLIPIDEMIA SNOMED Code(s): 642375184 (9) History of lumbar fusion Current Visit: Yes Status: Acute Code(s): Z98.1 - ARTHRODESIS STATUS SNOMED Code(s): 60290293328765 (10) Aortic valve stenosis Current Visit: Yes Status: Acute Code(s): I35.0 - NONRHEUMATIC AORTIC (VALVE) STENOSIS SNOMED Code(s): 06506122 (11) Prerenal azotemia Current Visit: Yes Status: Acute Code(s): R79.89 - OTHER SPECIFIED ABNORMAL FINDINGS OF BLOOD CHEMISTRY SNOMED Code(s): 191600568 (12) NSTEMI (non-ST elevated myocardial infarction) Current Visit: Yes Status: Acute Code(s): I21.4 - NON-ST ELEVATION (NSTEMI) MYOCARDIAL INFARCTION SNOMED Code(s): 40253877 (13) NSTEMI (non-ST elevated myocardial infarction) Current Visit: No Status: Acute Code(s): I21.4 - NON-ST ELEVATION (NSTEMI) MYOCARDIAL INFARCTION SNOMED Code(s): 81382874 (14) Syncope Current Visit: No Status: Acute Code(s): R55 - SYNCOPE AND COLLAPSE SNOMED Code(s): 772566740 Plan: Plan: 1. Patient has been having some reported right hip pain. CT imaging of the right hip and lumbar spine were taken. No fractures evident at the right hip. There is evidence of L2 pedicle fracture of indeterminate age with chronic L2 fracture. Patient is confused and somewhat aggressive at the bedside. He is asked to not be evaluated and to be left alone. In evaluation of his right hip, he does not have any pain with internal and external rotation of the right hip. There is no pain with palpation over the right hip. He is able to perform dorsiflexion and plantarflexion bilaterally. His calves are soft nontender. I am unable to visualize his lumbar spine. Currently, we would not plan for any acute surgical intervention in regards to his lumbar spine or right hip. We do not have indications in which surgical intervention would provide any significant improvement of his symptoms. Plus, patient has significant multiple other medical diagnoses that need further treatment and evaluation. We did currently defer all treatment to medicine. Patient may follow with his previous spine surgeon for treatment evaluation in the outpatient setting as needed. Time with Patient: Greater than 30 (Including obtaining history, physical examination, reviewing of imaging, and dictation.)
--- NOTE | 2024-10-11 12:02 | P.PN ---
Progress Note - Text Progress Note Date: 10/11/24 Interval history: Patient was seen today for psychiatric follow-up while on the medical floors. Patient continues to be on a one-to-one safety engineer. Patient was seen reaching out his hands in front of him. He was agreeable to speak to hand sign writer briefly answered some questions. He was mumbling at times. Claims that he has been having pain however cannot indicate where it is coming from. Denies any depression or anxiety. He only knew his name does not know today's date or where he is. Was not sure how many hours of sleep he got, does not appear to be eating well. Is reporting seeing things at times, no vision no auditory hallucinations, denies any suicidal homicidal ideations. MENTAL STATUS EXAM: General Appearance: Patient appears to be thin, tall, stated age is alert, poor attention span. Patient appears to have fair hygiene and grooming wearing hospital gown with poor eye contact. Behavior: Patient is somewhat less irritable today, more confused Speech: Patient's speech is fluent and nonpressured. Irritable tone Mood/Affect: Patient reports their mood is "not good", affect is congruent Suicidality/Homicidality: Patient denies having any suicidal or homicidal ideation intent or plan. Perceptions: Patient denies any denies any auditory hallucinations. He is rep orting visual hallucinations Though content/process: Fairly concrete, evasive. Rambling at times Memory and concentration: AOX1, he does not know today's date or his location. 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 -Delirium precautions recommended with patient including - avoiding use of narcotics and MACHINIST BRAKE sedatives, limit anticholinergic medications when possible, frequent re-orientation, minimize use of restraints, open window shades during the day and close them at night -Would recommend the following medication changes/additions: Zyprexa 2.5 mg nightly for aggression/paranoia/sleep. added prn zyprexa bid for agitation/psychosis. Lexapro 20 mg daily for mood/anxiety -will defer order and need for 1:1 sitter for safety to the primary team -vegetable harvest worker to provide patient with outpatient mental health/psychiatry resources for appropriate follow up upon discharge -Communicated plan to patient's nurse -at this time will sign off -Please contact with any questions.
--- NOTE | 2024-10-11 12:14 | P.PN ---
Subjective Progress Note Date: 10/10/24 Patient was seen for follow-up. Patient is laying in the bed, watching TV. Patient denies headache. He did not want to be examined, did not want to be talked to. Patient became very irritable as per examination below. Objective - Vital Signs Vital signs: Vital Signs Temp 97.6 F 10/10/24 07:40 Pulse 52 L 10/10/24 16:03 Resp 16 10/10/24 16:03 BP 122/53 10/10/24 16:03 Pulse Ox 95 10/10/24 16:03 FiO2 Intake & Output 10/10/24 10/10/24 10/11/24 06:59 18:59 06:59 Output Total 400 Balance -400 Weight 69 kg Output: Urine 400 Other: Voiding Method Diaper Indwelling Catheter - Exam Patient is alert and awake, watching TV. He denies headache. When I started asking examination for orientation, patient states "I do not give a shit". When I tried to examine his muscle strength, patient brushed off his hands violently. He became verbally abusive, therefore aborted further testing. - Labs CBC & Chem 7: 10/11/24 06:56 10/11/24 06:56 Labs: Abnormal Lab Results - Last 24 Hours (Table) 10/10/24 10/10/24 Range/Units 10:25 10:25 RBC 2.86 L (4.30-5.90) m/uL Hgb 9.0 L (13.0-17.5) gm/dL Hct 28.1 L (39.0-53.0) % Plt Count 146 L (150-450) k/uL Sodium 132 L (137-145) mmol/L Carbon Dioxide 21 L (22-30) mmol/L BUN 42 H (9-20) mg/dL Glucose 108 H (74-99) mg/dL Calcium 7.5 L (8.4-10.2) mg/dL AST 65 H (17-59) U/L Total Protein 4.7 L (6.3-8.2) g/dL Albumin 2.4 L (3.5-5.0) g/dL Assessment and Plan Assessment: * Syncope versus seizure-probable syncopal spell * Frequent falls * Elevated cardiac enzyme, type II non-STEMI * Memory loss, rule out dementia, delirium * Influenza A pneumonia * Hyponatremia * History of paroxysmal atrial fibrillation * Hypertension * Fracture of the L2 pedicle screw, stable mild superior endplate compression fracture of L2 with no acute fractures or malalignment. * History of multiple back surgeries * Hyperlipidemia Plan: * Carotid Doppler revealed moderate calcified plaque in the carotid bifurcations and proximal ICAs. 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 Antegrade flow in both vertebral arteries. * 2D echo revealed normal LV systolic function. EF is 50 to 55%. No obvious r egional wall motion abnormalities. Mildly increased left atrial volume. Normal right atrial size. No thrombus. Mild . * EEG was abnormal due to background slowing, suggestive of mild encephalopathy. No focal, lateralized or epileptiform activity was seen. * Patient has history of PAF. Patient on Eliquis 2.5 mg twice daily. Also on aspirin 81 mg daily. * CT of the lumbar spine showed fracture of the L2 pedicle screw, stable mild superior endplate compression fracture of L2 with no acute fractures or malalignment. CT of the hip showed no evidence of fracture. Moderate de generative changes of the right hip. Orthopedic surgery on board. * B12 764, folate 26.8. * Hemoglobin A1c 5.8, TSH 1.13. * Treatment of other medical conditions as per IM. * Neurologically, no other workup indicated. Neurology will sign off.
[2024-10-11 14:15] VITALS: BMI 22.4
[2024-10-11] MEDS: OLANZapine 2.5 MG TAB PO PRN (16:50)
--- NOTE | 2024-10-11 18:05 | P.PN ---
Subjective Progress Note Date: 10/11/24 HISTORY OF PRESENT ILLNESS: This is an 89-year-old male patient of eduardo and Dr. Myers with a past medical history coronary artery disease status post PCI of the LAD and RCA, history of hypertension, hyperlipidemia BPH, neck and back surgeries for degenerative arthritis, patient was hospitalized at [facility] in 05/31/2023 and he was found to have a significant stenosis of the proximal LAD after heart cath physician that was done by Dr. Quintana, he underwent left heart catheterization with PCI of the proximal LAD Xience stent, and he did have a balloon angioplasty for dilatation as well, patient has done well over the last few months, patient was recently hospitalized at [facility] from September 02 August 24 after recurrent falls and not able to ambulate on his own, he was sent to [facility] for physical therapy and rehabilitation, patient had a matter fact was discharged from our yesterday, he went home as the patient did not want to stay over there, on the way home patient was extremely weak, his and his daughter managed to get him to the house, however the patient had a syncopal episode, they thought that he had had a stroke because he was unrespons queta for few minutes, EMS was called and the patient was brought into the emergency department at [facility], had a CT scan of the brain 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, CT of the cervical spine showed significant degenerative disc disease of the cervical spine with extensive surgical changes with hardware intact, chest x-ray was negative, twelve-lead EKG showed normal sinus rhythm with first-degree AV block with Q waves inferiorly suggestive of old IL, x-rays of the pelvis did not show any evidence of any acute fracture, but the patient otherwise did not have any focal neurological deficit, his EKG did not show any evidence of acute ST-T wave changes just sinus rhythm with first-degree AV block and old Q waves in the inferior leads., but because of the presentation he was admitted to the hospital for evaluation by cardiology as well as by neurology, patient was placed on the monitor bed, he will be seen in consultation by physical therapy and Occupational Therapy along with director social as the patient I believe not able to be home at this point in time may need to have a placement for 24-hour care. 10/07: Patient sitting up in bed in no apparent distress, he continues to have a raspy voice, he has no appetite, he has not been eating much, he does not feel hungry, he wanted to go home at this time, he is extremely weak, he needed 2 person assist to get up in the bed, physical therapy has not evaluated the patient yet, patient will likely require to go to subacute rehabilitation, patient had an echocardiogram the result of which still pending at the time of dictation, this is likely related to a moderate aortic valve stenosis according to cardiology, we will continue to follow-up with the patient very closely. 10/08: Patient is complaining of increased dry cough minimal phlegm production, his oxygenation dropped to 88 to 89% on room air, he was placed on 2 L nasal cannula, we will obtain portable chest x-ray for evaluation of possible left lo wer lobe pneumonia, I will start the patient on IV antibiotic in the form of Zosyn 3.375 g piggyback every 8 hours, physical therapy to evaluate the patient because the patient is extremely weak at this point, for the patient to be able to get into subacute rehabilitation at this point in time. I will start the patient on nebulized treatment in the form of DuoNeb 3 mL nebulization 4 times every day as well. 10/09: Patient is sitting up in bed he came plaints of increased pain in the right buttock area rating to the right lower extremity, is not able to lift his right leg off the bed, he is not able to ambulate even using the walker, physical therapy to continue work with the patient at this time, patient is tested positive for influenza A, he was started on Zosyn as well as Tamiflu yesterday, continue to follow-up with the patient very closely, he had an episode of atrial fibrillation yesterday he was started on Cardizem drip at 5 mg an hour then he was taken off of it because of bradycardia, follow-up with the patient very closely his current heart rate is about 66, underlying atrial fibrillation 10/10: Patient is quite confused today he does not know where he is at at this point in time, he is having hard time moving his right lower extremity, he continues to have pain in the right hip area, I will send him for CT scan of the right hip as well as CT scan of the lumbar spine, rule out retroperitoneal bleed, patient has been treated with Tamiflu 30 mg orally twice every day for recent influenza, has been treated for pneumonia as well and non-ST elevation IL, he is extremely weak at this point in time he will require to go to subacute rehabilitation, patient was agitated yesterday and restraint was placed on the patient and they were taken off in the morning, patient did have some suicidal thoughts he will be evaluated by psychiatry. 10/11: Patient is laying down in bed he appears to be quite confused, he is not following much commands, he is not able to move his right lower extremity at this time, he was seen in consultation by spine surgery who recommended to do no thing at this point in time, he did have an L2 pedicle screw fracture of undetermined age, at this point the patient will be maintained on current treatment plan, and the plan for the patient is to go back to [facility] when he is more stable, he will need 24-hour care at this point in time, he is not able to go back home we will work with the patient and his family about keeping him at [facility] for now. REVIEW OF SYSTEMS: Constitutional: No documented fever, no chills, no night sweats. Positive for weight change. positive for weakness, fatigue or lethargy. No daytime sleepiness. HEENT: No headache. No blurred vision or double vision, no loss of vision. Decrease Hearing, no ringing in the ears, no dizziness. No nasal drainage or congestion. No epistaxis. No sore throat. Lungs: Positive for shortness of breath, occasional cough, no sputum production. No wheezing. Reports dyspnea with activity. Cardiovascular: No chest pain, no lower extremity edema. No palpitations. No paroxysmal nocturnal dyspnea. No orthopnea. Positive for lightheadedness, positive for syncope Abdominal: Reports no abdominal pain. positive for nausea, no vomiting. No diarrhea. No constipation. No bloody or tarry stools reports loss of appetite. Genitourinary: positive for urinary frequency. Musculoskeletal: No myalgias. Positive for muscle weakness,positive for gait dysfunction, positive for frequent falls, positive for back pain, and neck pain. Positive for loss of balance. Integumentary: No wounds, no lesions. No rash or pruritus. Positive for unusual bruising. No change in hair or nails. Neurologic: No aphasia. No facial droop. Positive for change in mentation. No head injury. No headache. No paralysis. No paresthesia. Psychiatric: positive for depression. No anxiety. positive for mood swings, patient expressed suicidal thoughts. Endocrine: No abnormal blood sugars. Positive for weight change. PHYSICAL EXAMINATION: General: 89-year-old male who is laying down in bed appears to be quite confused HEENT: Head is atraumatic, normocephalic, pupils were equal round reactive to light and recommendation, extraocular muscle movement were intact, sclera n onicteric, conjunctivae were pale, mucous membranes of the mouth are somewhat dry. Neck: Supple, no JVP, normal carotid upstroke bilaterally, no lymphadenopathy. Chest: Decreased breath sounds at the bases, few rhonchi at the left base, minimal expiratory wheezes, no chest wall tenderness, no intercostal retractions. Heart: First heart sound is normal, second heart sounds normal there is systolic ejection murmur 2/6 located in the left sternal border. Abdomen: Soft, nontender, nondistended, positive bowel sounds. Extremities: There is +1 edema no calf tenderness DP +2 bilaterally. Neurologic examination: Patient is awake alert and oriented X 1, cranial nerves II-12 appear grossly intact, muscle power were 3 out of 5 in upper extremities and 1 out of 5 in the right lower extremity and 3 out of 5 in the left lower extremity. ASSESSMENT AND PLAN: 1. Syncope likely related to mild to moderate aortic valve stenosis. Echocardiogram was done, and that showed evidence of mild aortic valve stenosis will continue current treatment plan. 2. Non-ST elevation myocardial infarction, continue patient on aspirin 81 mg once every day, continue atorvastatin 80 mg once every day, monitor lipid panel, keep LDL 55-70 no plan for heart catheterization at this time 3. Paroxysmal atrial fibrillation. Continue patient on Eliquis 2.5 mg orally twice every day for life. Patient could not tolerate beta-blockers or calcium channel blockers due to severe bradycardia and syncope. 4. History of CAD post-PCI of the LAD and RCA. Last heart catheterization November 2019 showed stable disease. Continue aspirin 81 mg once every day, Lipitor 80 mg once every day, lisinopril 20 mg every day, isosorbide 20 mg orally twice every day. 5. Hypertension and hypertensive cardiovascular disease. Continue lisinopril 10 mg orally once every day monitor the patient blood pressure very closely 6. Mixed hyperlipidemia. Continue Lipitor 80 mg once every day, keep LDL cholesterol 55-70. 7. Enlarged prostate continue Flomax 0.4 mg once every day. 8. Mild to moderate aortic valve stenosis. He is echocardiogram only showed evidence of mild aortic valve stenosis. 9. Prerenal azotemia. Resolved. Discontinue IV fluid 10. 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 Continue with physical therapy as needed. 11. Chronic diastolic heart failure. Continue patient on lisinopril 10 mg orally once every day, stable at this time 12. DVT prophylaxis. continue Eliquis 2.5 mg orally twice every day 13. GI prophylaxis. Continue Protonix 40 mg orally once every day. 14. Physical therapy evaluation for possible subacute rehabilitation 15. Influenza A with minimal left lower lobe infiltrate. Continue Zosyn and Tamiflu 30 mg orally twice every day for 5 days continue oxygen support, follow- up with the patient very closely 16. Severe pain in the lumbar spine and the right hip area due to L2 pedicle screw fracture and significant spinal stenosis Seen by spine surgery recommended current conservative management as the patient is not a candidate for any surgical intervention at this point. 17. Major depressive disorder. Discontinue suicidal precautions patient was evaluated by psychiatry will continue current treatment plan 18. Hyperkalemia. Discontinue IV fluid with potassium supplement. 19. Mild fluid overload. Give the patient Lasix 20 mg IV push x 1 20. Repeat labs tomorrow morning for Objective - Vital Signs Vital signs: Vital Signs Temp 97.8 F 10/11/24 08:00 Pulse 77 10/11/24 14:00 Resp 16 10/11/24 14:00 BP 150/63 10/11/24 12:00 Pulse Ox 91 L 10/11/24 12:00 FiO2 Intake & Output 10/10/24 10/11/24 10/11/24 18:59 06:59 18:59 Intake Total 625 Output Total 400 1100 500 Balance -400 -1100 125 Weight 71 kg 71 kg Intake: Intake, IV Titration 625 Amount 0.9% NaCl with KCl 20 Meq 525 /l 1,000 ml @ 75 mls/hr IV .[id number] [facility] Rx#: [id number] Piperacillin-Tazobactam 3 100 .375 gm In Sodium Chloride 0.9% 100 ml @ 25 mls/hr IVPB Q8HR [facility] Rx# :[id number] Output: Urine 400 1100 500 Other: Voiding Method Indwelling Catheter Diaper Diaper # Bowel Movements 1 - Labs CBC & Chem 7: 10/11/24 06:56 10/11/24 06:56 Labs: Abnormal Lab Results - Last 24 Hours (Table) 10/11/24 10/11/24 Range/Units 06:56 06:56 RBC 3.11 L (4.30-5.90) m/uL Hgb 9.9 L (13.0-17.5) gm/dL Hct 30.9 L (39.0-53.0) % Potassium 5.5 H (3.5-5.1) mmol/L Chloride 112 H (98-107) mmol/L Carbon Dioxide 19 L (22-30) mmol/L BUN 34 H (9-20) mg/dL Glucose 102 H (74-99) mg/dL Calcium 7.9 L (8.4-10.2) mg/dL Magnesium 2.4 H (1.6-2.3) mg/dL AST 68 H (17-59) U/L Total Protein 4.9 L (6.3-8.2) g/dL Albumin 2.5 L (3.5-5.0) g/dL
[2024-10-11] MEDS: FUROSEMIDE 10 MG/ML 4 ML VIAL IV STA (18:18)
[2024-10-12 06:11] VITALS: RESP 20
[2024-10-12 06:58] LABS: Basophils % (A) 0 %; Eosinophils # (A) 0.1 k/uL (0-0.7); Eosinophils % (A) 1 %; HCT 31.4 % (39.0-53.0); HGB 10.3 gm/dL (13.0-17.5); Hypochromasia Slight; Lymphocytes # (A) 2.8 k/uL (1.0-4.8); Lymphocytes % (A) 27 %; MCH 32.3 pg (25.0-35.0); MCHC 32.8 g/dL (31.0-37.0); MCV 98.3 fL (80.0-100.0); Mean Platelet Volume 7.5; Monocytes # (A) 0.5 k/uL (0-1.0); Monocytes % (A) 5 %; Neutrophils # (A) 6.8 k/uL (1.3-7.7); Neutrophils % (A) 66 %; Platelet Count 275 k/uL (150-450); RDW 13.4 % (11.5-15.5); WBC 10.4 k/uL (3.8-10.6)
[2024-10-12 07:17] LABS: ALT 36 U/L (4-49); AST 66 U/L (17-59); African American GFR (CKD) 67 (>60 ml/min/1.73 sqM); Albumin 2.8 g/dL (3.5-5.0); Alkaline Phosphatase 61 U/L (38-126); Anion Gap 10 mmol/L; Blood Urea Nitrogen 33 mg/dL (9-20); Calcium 8.4 mg/dL (8.4-10.2); Carbon Dioxide 18 mmol/L (22-30); Chloride 111 mmol/L (98-107); Glucose 80 mg/dL (74-99); Magnesium 2.1 mg/dL (1.6-2.3); Non-African American GFR(CKD) 58 (>60 ml/min/1.73 sqM); Potassium 4.5 mmol/L (3.5-5.1); Sodium 139 mmol/L (137-145); Total Bilirubin 1.4 mg/dL (0.2-1.3); Total Protein 5.2 g/dL (6.3-8.2)
[2024-10-12 11:05] VITALS: TEMP 98.5
--- NOTE | 2024-10-12 13:58 | P.DS ---
Providers Date of admission: 10/05/24 19:59 Expected date of discharge: 10/12/24 Attending physician: Nayeil Michel Consults: 10/05/24 21:31 Consult Physician Routine Consulting Provider: Abilio Smith Consult Reason/Comments: syncope,weakness Do you want consulting provider notified?: Yes 10/09/24 16:25 Consult Physician Routine Consulting Provider: Saravanan Shah Consult Reason/Comments: suicide threat Do you want consulting provider notified?: Yes 10/11/24 06:34 Consult Physician Routine Consulting Provider: Ila Portillo Consult Reason/Comments: pedicle screw fx Do you want consulting provider notified?: Yes, Notify in am Primary care physician: Nayeli Michel [facility] Course: HISTORY OF PRESENT ILLNESS: This is an 89-year-old male patient of eduardo and Dr. Myers with a past medical history coronary artery disease status post PCI of the LAD and RCA, history of hypertension, hyperlipidemia BPH, neck and back surgeries for degenerative arthritis, patient was hospitalized at [facility] in 05/31/2023 and he was found to have a significant stenosis of the proximal LAD after heart cath physician that was done by Dr. Quintana, he underwent left heart catheterization with PCI of the proximal LAD Xience stent, and he did have a balloon angioplasty for dilatation as well, patient has done well over the last few months, patient was recently hospitalized at [facility] from September 02 August 24 after recurrent falls and not able to ambulate on his own, he was sent to [facility] for physical therapy and rehabilitation, patient had a matter fact was discharged from our yesterday, he went home as the patient did not want to stay over there, on the way home patient was extremely weak, his and his daughter managed to get him to the house, however the patient had a syncopal episode, they thought that he had had a stroke because he was unresponsive for few minutes, EMS was called and the patient was brought into the emergency department at [facility], had a CT scan of the brain 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, CT of the cervical spine showed significant degenerative disc disease of the cervical spine with extensive surgical changes with hardware intact, chest x-ray was negative, twelve-lead EKG showed normal sinus rhythm with first-degree AV block with Q waves inferiorly suggestive of old ID, x-rays of the pelvis did not show any evidence of any acute fracture, but the patient otherwise did not have any focal neurological deficit, his EKG did not show any evidence of acute ST-T wave changes just sinus rhythm with first-degree AV block and old Q waves in the inferior leads., but because of the presentation he was admitted to the hospital for evaluation by cardiology as well as by neurology, patient was placed on the monitor bed, he will be seen in consultation by physical therapy and Occupational Therapy along with social security assessor as the patient I believe not able to be home at this point in time may need to have a placement for 24-hour care. 10/07: Patient sitting up in bed in no apparent distress, he continues to have a raspy voice, he has no appetite, he has not been eating much, he does not feel hungry, he wanted to go home at this time, he is extremely weak, he needed 2 person assist to get up in the bed, physical therapy has not evaluated the patient yet, patient will likely require to go to subacute rehabilitation, patient had an echocardiogram the result of which still pending at the time of dictation, this is likely related to a moderate aortic valve stenosis according to cardiology, we will continue to follow-up with the patient very closely. 10/08: Patient is complaining of increased dry cough minimal phlegm production, his oxygenation dropped to 88 to 89% on room air, he was placed on 2 L nasal cannula, we will obtain portable chest x-ray for evaluation of possible left lower lobe pneumonia, I will start the patient on IV antibiotic in the form of Zosyn 3.375 g piggyback every 8 hours, physical therapy to evaluate the patient because the patient is extremely weak at this point, for the patient to be able to get into subacute rehabilitation at this point in time. I will start the patient on nebulized treatment in the form of DuoNeb 3 mL nebulization 4 times every day as well. 10/09: Patient is sitting up in bed he came plaints of increased pain in the right buttock area rating to the right lower extremity, is not able to lift his right leg off the bed, he is not able to ambulate even using the walker, physical therapy to continue work with the patient at this time, patient is tested positive for influenza A, he was started on Zosyn as well as Tamiflu yesterday, continue to follow-up with the patient very closely, he had an episode of atrial fibrillation yesterday he was started on Cardizem drip at 5 mg an hour then he was taken off of it because of bradycardia, follow-up with the patient very closely his current heart rate is about 66, underlying atrial fibrillation 4/2: Patient is quite confused today he does not know where he is at at this point in time, he is having hard time moving his right lower extremity, he continues to have pain in the right hip area, I will send him for CT scan of the right hip as well as CT scan of the lumbar spine, rule out retroperitoneal bleed, patient has been treated with Tamiflu 30 mg orally twice every day for recent influenza, has been treated for pneumonia as well and non-ST elevation ID, he is extremely weak at this point in time he will require to go to subacute rehabilitation, patient was agitated yesterday and restraint was placed on the patient and they were taken off in the morning, patient did have some suicidal thoughts he will be evaluated by psychiatry. 4/3: Patient is laying down in bed he appears to be quite confused, he is not following much commands, he is not able to move his right lower extremity at this time, he was seen in consultation by spine surgery who recommended to do nothing at this point in time, he did have an L2 pedicle screw fracture of undetermined age, at this point the patient will be maintained on current treatment plan, and the plan for the patient is to go back to [facility] when he is more stable, he will need 24-hour care at this point in time, he is not able to go back home we will work with the patient and his family about keeping him at [facility] for now. 44: No new concerns today. Patient has been hemodynamically stable. He has been accepted at [facility] and will be discharged once all arrangements are completed. DISCHARGE DIAGNOSES: 1. Syncope likely related to mild to moderate aortic valve stenosis. 2. Non-ST elevation myocardial infarction. 3. Paroxysmal atrial fibrillation. 4. History of CAD post-PCI of the LAD and RCA. Last heart catheterization November 2019 showed stable disease. 5. Hypertension and hypertensive cardiovascular disease. 6. Mixed hyperlipidemia. 7. Enlarged prostate. 8. Mild to moderate aortic valve stenosis. 9. Prerenal azotemia. 10. 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 11. Chronic diastolic heart failure. 12. Influenza A with minimal left lower lobe infiltrate, possible gram- negative. 16. Severe pain in the lumbar spine and the right hip area due to L2 pedicle screw fracture and significant spinal stenosis 17. Major depressive disorder. 18. Hyperkalemia. 19. Mild fluid overload. Greater than 35 minutes was utilized and coordinating patient's discharge. Impression and plan of care have been directed as dictated by the signing physician. Ingrid Benitez nurse practitioner acting as scribe for signing physician. Patient Condition at Discharge: Fair Plan - Discharge Summary Discharge Rx Participant: Yes New Discharge Prescriptions: New Amoxic-Pot Clav 500-125 mg [Augmentin 500-125 mg] 1 tab PO Q12HR #4 tab Ipratropium-Albuterol Nebulize [Duoneb 0.5 mg-3 mg/3 ml Soln] 3 ml INHALATION RT-TID PRN each PRN Reason: Shortness Of Breath Or Wheezing Apixaban [Eliquis] 2.5 mg PO BID tab Metoprolol Succinate (ER) [Toprol XL] 25 mg PO DAILY tab Oseltamivir [Tamiflu] 30 mg PO Q12HR #1 cap Continue Atorvastatin Calcium [Lipitor] 80 mg PO DAILY Tamsulosin [Flomax] 0.4 mg PO DAILY Acetaminophen Tab [Tylenol] 650 mg PO Q6H PRN PRN Reason: Pain Or Fever > 100.5 Nitroglycerin Sl Tabs [Nitrostat] 0.4 mg SUBLINGUAL Q5M PRN PRN Reason: Chest Pain Ondansetron [Zofran] 4 mg PO Q6H PRN PRN Reason: Nausea And Vomiting polyethylene glycoL 3350 [Miralax] 17 gm PO DAILY PRN PRN Reason: Constipation Sennosides [Senokot] 8.6 mg PO BID-W/MEALS Aspirin EC [Ecotrin Low Dose] 81 mg PO HS Escitalopram [Lexapro] 20 mg PO DAILY Changed Potassium Chloride [Klor-Con M20] 20 meq PO MOWEFR #0 lisinopriL [Zestril] 10 mg PO DAILY #0 Isosorbide Mononitrate [Ismo] 20 mg PO DAILY #0 Furosemide [Lasix] 20 mg PO MOWEFR #0 Discontinued Apixaban [Eliquis] 5 mg PO DAILY Discharge Medication List Atorvastatin Calcium [Lipitor] 80 mg PO DAILY 08/12/18 [History] Tamsulosin [Flomax] 0.4 mg PO DAILY 12/07/19 [History] Aspirin EC [Ecotrin Low Dose] 81 mg PO HS 06/12/21 [History] Escitalopram [Lexapro] 20 mg PO DAILY 08/20/24 [History] Acetaminophen Tab [Tylenol] 650 mg PO Q6H PRN 10/05/24 [History] Nitroglycerin Sl Tabs [Nitrostat] 0.4 mg SUBLINGUAL Q5M PRN 10/05/24 [History] Ondansetron [Zofran] 4 mg PO Q6H PRN 10/05/24 [History] Sennosides [Senokot] 8.6 mg PO BID-W/MEALS 10/05/24 [History] polyethylene glycoL 3350 [Miralax] 17 gm PO DAILY PRN 10/05/24 [History] Amoxic-Pot Clav 500-125 mg [Augmentin 500-125 mg] 1 tab PO Q12HR #4 tab 10/12/24 [Rx] Apixaban [Eliquis] 2.5 mg PO BID tab 10/12/24 [Rx] Furosemide [Lasix] 20 mg PO MOWEFR #0 10/12/24 [Rx] Ipratropium-Albuterol Nebulize [Duoneb 0.5 mg-3 mg/3 ml Soln] 3 ml INHALATION RT-TID PRN each 10/12/24 [Rx] Isosorbide Mononitrate [Ismo] 20 mg PO DAILY #0 10/12/24 [Rx] Metoprolol Succinate (ER) [Toprol XL] 25 mg PO DAILY tab 10/12/24 [Rx] Oseltamivir [Tamiflu] 30 mg PO Q12HR #1 cap 10/12/24 [Rx] Potassium Chloride [Klor-Con M20] 20 meq PO MOWEFR #0 10/12/24 [Rx] lisinopriL [Zestril] 10 mg PO DAILY #0 10/12/24 [Rx] Follow up Appointment(s)/Referral(s): Nayeli Michel MD [Primary Care Provider] - 1-2 days Discharge Disposition: TRANSFER TO SNF/ECF
[2024-10-12 14:32] VITALS: BP 121/53
[2024-10-12 17:02] VITALS: PULSE 52
== END 2024-10-12 17:35 | DRG 280 ==
LOC: EC 13:01 → 3SCARD 19:57 → OBSVTOIN 19:59 → 3SCARD 20:10
PROVIDERS: ADMIT Internal Medicine; ATTEND Internal Medicine
DX: I35.8 Other nonrheumatic aortic valve disorders (principal); J10.01 Influenza due to other identified influenza virus with the same other identified influenza virus pneumonia; I21.A1 Myocardial infarction type 2; F03.911 Unspecified dementia, unspecified severity, with agitation; I11.0 Hypertensive heart disease with heart failure; I65.23 Occlusion and stenosis of bilateral carotid arteries; F32.9 Major depressive disorder, single episode, unspecified; F03.92 Unspecified dementia, unspecified severity, with psychotic disturbance; F03.93 Unspecified dementia, unspecified severity, with mood disturbance; I50.32 Chronic diastolic (congestive) heart failure; F03.94 Unspecified dementia, unspecified severity, with anxiety; J96.01 Acute respiratory failure with hypoxia; I48.0 Paroxysmal atrial fibrillation; M48.56XA Collapsed vertebra, not elsewhere classified, lumbar region, initial encounter for fracture; T84.216A Breakdown (mechanical) of internal fixation device of vertebrae, initial encounter; E87.1 Hypo-osmolality and hyponatremia; R62.7 Adult failure to thrive; R45.851 Suicidal ideations; Z78.1 Physical restraint status; E86.0 Dehydration; G25.0 Essential tremor; E78.2 Mixed hyperlipidemia; I25.10 Atherosclerotic heart disease of native coronary artery without angina pectoris; I44.0 Atrioventricular block, first degree; N40.0 Benign prostatic hyperplasia without lower urinary tract symptoms; M50.30 Other cervical disc degeneration, unspecified cervical region; R29.6 Repeated falls; E87.5 Hyperkalemia; J10.1 Influenza due to other identified influenza virus with other respiratory manifestations; M48.061 Spinal stenosis, lumbar region without neurogenic claudication; Y79.2 Prosthetic and other implants, materials and accessory orthopedic devices associated with adverse incidents; I25.2 Old myocardial infarction; Z79.01 Long term (current) use of anticoagulants; Z79.82 Long term (current) use of aspirin; Z79.899 Other long term (current) drug therapy; Z95.5 Presence of coronary angioplasty implant and graft; Z98.1 Arthrodesis status; Z86.73 Personal history of transient ischemic attack (TIA), and cerebral infarction without residual deficits; Z87.891 Personal history of nicotine dependence; Z82.49 Family history of ischemic heart disease and other diseases of the circulatory system
CPT/HCPCS: 36415; 70450; 71045; 72125; 72131; 72170; 80053; 81001; 82550; 82607; 82746; 83036; 83735; 83880; 84100; 84443; 84484; 85025; 85610; 85730; 87636; 93005; 93225; 93306; 93880; 95816; 96361; 96365; 96366; 99285